=== PATIENT | female | born 1960 | race American Indian/Alaskan Native ===

== ENCOUNTER 2016-08-19 13:32 | Emergency (ER) | payer MEDICARE, OTHER ==
[2016-08-19 13:49] VITALS: TEMP 98.7; O2SAT 100
[2016-08-19 13:50] VITALS: BMI 22.1
--- NOTE | 2016-08-19 13:55 | ED PDOC ---
Arrival/HPI - General Time Seen by Provider: 08/19/16 13:33 Historian: Patient - History of Present Illness Narrative History of Present Illness (Text): 08/19/16 13:46 A 56 year old female, whose past medical history includes diabetes on hemodialysis and VT, presents to the emergency department complaining of chest pain. Patient reports while receiving dialysis today she developed midsternal chest pressure. Patient reports she was placed on oxygen, with mild relief. She states her current pain does not feel like her previous VT symptoms. Patient was given nitroglycerin on route to emergency room and now complains of a headache. Gradual onset, not the worst AQUINO of her life. Patient denies any fever nausea, vomiting, diarrhea, abdominal pain, shortness of breath or any other complaints. Patient did not receive full dialysis treatment today. PMD: Dr. Rubalcava Rack Puller: Dr. Crump Time/Duration: Other (Today) Symptom Course: Unchanged Quality: Other Context: Other Past Medical History - Provider Review Nursing Documentation Reviewed: Yes - Infectious Disease Hx of Infectious Diseases: None - Tetanus Immunization Tetanus Immunization: Unknown - Cardiac Hx Cardiac Disorders: Yes (CAD, Mx stents) Hx Hypertension: Yes - Pulmonary Hx Respiratory Disorders: No Hx Pneumonia: (pt denies) - Neurological Hx Neurological Disorder: Yes Hx Migraine: Yes - HEENT Hx HEENT Disorder: No - Renal Hx Renal Failure: Yes (ESRD) - Endocrine/Metabolic Hx Hypothyroidism: Yes - Hematological/Oncological Hx Blood Disorders: Yes (blood transfusion) Hx Anemia: Yes - Integumentary Hx Dermatological Disorder: Yes (generalized body itch) - Musculoskeletal/Rheumatological Hx Falls: No - Gastrointestinal Hx Gastrointestinal Disorders: Yes (peptic ulcer) Hx Gall Bladder Disease: Yes Other/Comment: esophageal ulcer - Genitourinary/Gynecological Hx Genitourinary Disorders: (esrd, hd renal ventures m w f) Hx Hematuria: Yes Hx Reproductive Disorders: No Hx Urinary Tract Infection: Yes - Psychiatric Hx Anxiety: Yes Hx Depression: Yes Hx Emotional Abuse: No Hx Physical Abuse: No 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) - Surgical History Hx Appendectomy: Yes Hx Cholecystectomy: Yes Other/Comment: x4, excision bartholin cyst, right chest udall in and out, d&c, insertion and removal of peritoneal dialysis cyst, renal bx, left av shunt, mrcp - Anesthesia Hx Anesthesia: Yes Hx Anesthesia Reactions: No Hx Malignant Hyperthermia: No - Suicidal Assessment Feels Threatened In Home Enviroment: No Family/Social History - Physician Review Nursing Documentation Reviewed: Yes Family/Social History: No Known Family HX Smoking Status: Former Smoker Hx Alcohol Use: Yes (quit 20 yrs ago) 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) Hx Substance Use Treatment: No Allergies/Home Meds Allergies/Adverse Reactions: Allergies MAVIS Inhibitors Allergy (Verified 08/19/16 13:48) SWELLING Home Medications: Home Meds Medication Instructions Recorded Confirmed Cyanocobalamin (Vitamin B-12) 1,000 mcg IM .BIMONTHLY 08/19/16 08/19/16 [Liquid B12] Meclizine [Meclizine*] 25 mg PO HS 08/19/16 08/19/16 Metoprolol Tartrate [Lopressor] 25 mg PO BID 08/19/16 08/19/16 Midodrine [Proamatine] 5 mg PO DAILY 08/19/16 08/19/16 Pantoprazole [Protonix EC Tab] 40 mg PO DAILY 08/19/16 08/19/16 Rosuvastatin Calcium [Crestor] 20 mg PO HS 08/19/16 08/19/16 Sevelamer Carbonate [Renvela] 800 mg PO TID 08/19/16 08/19/16 oxyCODONE/Acetaminophen [Percocet 1 tab PO Q6 PRN 08/19/16 08/19/16 5/325 mg Tab] Physical Exam - Physical Exam Narrative Physical Exam (Text): - Review of Systems Constitutional: Normal. absent: Fatigue, Weight Change, Fevers Eyes: Normal ENT: Normal Respiratory: Normal absent: SOB, Cough, Sputum Cardiovascular: (+) Chest pressure absent: Palpitations, Syncope Gastrointestinal: Normal absent: Abdominal pain, Diarrhea, Nausea, Vomiting Genitourinary: Normal. absent: Dysuria, Frequency, Hematuria Musculoskeletal: Normal. absent: Arthralgias, Back Pain, Neck Pain Skin: Normal Neurological: (+) Headache absent: Focal Weakness Endocrine: Normal Hemo/Lymphatic: Normal Psychiatric: Normal - Physical exam Patient appears age appropriate, speaking full sentences without difficulty - Systems Exam Head: Present: Atraumatic, Normocephalic Pupils: Present: PERRL Extraocular Muscles: Present: EOMI Conjunctiva: Present: Normal Mouth: Present: Moist Mucous Membranes Neck: Present: Normal Range of Motion. No: MIDLINE TENDERNESS, Paraspinal Tenderness Respiratory/Chest: Present: Clear to Auscultation, Good Air Exchange. No: Respiratory Distress, Accessory Muscle Use, Tachypneic Cardiovascular: Present: Regular Rate and Rhythm, Normal S1, S2, Peripheral Pulses Present. No: Murmurs Abdomen: Present: Normal Bowel Sounds, No: Tenderness, Peritoneal Signs, Rebound, Guarding, Distention Back: Present: Normal Inspection. No: Midline Tenderness, Paraspinal Tenderness Upper Extremity: Present: Left dialysis access with positive bruit, thrill and pulse No: Cyanosis, Edema Lower Extremity: Present: Normal Inspection. No: Edema Neurological: Present: GCS=15, Speech Normal, cranial nerves II through XII fully intact with no cerebellar abnormality, neuro-sensory fully intact. No focal neurological deficits. Skin: Present: Warm, Dry, Normal Color. No: Rashes Lymphatic: Present: OX3, NI, NC Psychiatric: Present: Alert, Oriented x 3, Normal Insight, Normal Concentration Vital Signs Reviewed: Yes Vital Signs Temp Pulse Resp BP Pulse Ox 08/19/16 13:45 98.7 F 77 18 140/73 100 Temperature: Afebrile Blood Pressure: Normal Pulse: Regular Respiratory Rate: Normal Appearance: Positive for: Well-Appearing, Non-Toxic, Comfortable Pain Distress: None Mental Status: Positive for: Alert and Oriented X 3 Medical Decision Making ED Course and Treatment: 08/19/16 13:46 Impression: A 56 year old female with chest pressure. Physical exam unremarkable. Plan: -- Chest xray -- Labs -- Tylenol -- Reassess and disposition Progress Notes: EKG shows NSR at [address]-segment elevations, normal intervals. Interpreted by me. Report Date : 08/19/2016 14:16:12 Procedure: Chest xray Dictator : Kimo Trujillo MD IMPRESSION: No active disease. 08/19/16 15:[address] Rubalcava in detail, states he know pt well and she has chronic chest pain states to dc pt home with outpatient f/u tomorrow pt in no distress at this time, aware of and agrees with plan pt denies chest pain, sob or vanessa. Pt states she understands to return to the ER right away for new or worsening symptoms or for inability to f/u with PMD or specialist as instructed. Patient states that she fully agrees with and understands discharge instructions. States that she agrees with the plan and disposition. Verbalized and repeated discharge instructions and plan. I have given the patient opportunity to ask any additional questions. - Lab Interpretations Lab Results: 08/19/16 15:00 08/19/16 15:00 Lab Results 08/19/16 15:00: WBC 4.8 D, RBC 3.11 L, Hgb 10.9 L, Hct 33.4 L, MCV 107.4 H, MCH 35.0, MCHC 32.6, RDW 15.7 H, Plt Count 141, MPV 10.3, Gran % 53.9, Lymph % ( Auto) 31.2, [place] % (Auto) 13.0 H, Eos % (Auto) 1.7, Baso % (Auto) 0.2, Gran # 2.58, Lymph # 1.5, [place] # 0.6, Eos # 0.1, Baso # 0.01, PT 11.1, INR 1.03, APTT 31.0 H, Sodium 140, Potassium 4.5, Chloride 96, Carbon Dioxide 31, Anion Gap 18 , BUN 36 H, Creatinine 8.9 H*, Est GFR ( Amer) 6, Est GFR (Non-Af Amer) 5 , Random Glucose 95, Calcium 8.6, Total Bilirubin 0.7, AST 26, ALT 24, Alkaline Phosphatase 87, Lactate Dehydrogenase 390, Total Creatine Kinase 38, Troponin I 0.01 D, Total Protein 8.7 H, Albumin 4.1, Globulin 4.7, Albumin/Globulin Ratio 0.9 L - RAD Interpretation Radiology Orders: 08/19/16 13:57 CHEST PORTABLE [RAD] Stat - Medication Orders Current Medication Orders: Discontinued Medications Acetaminophen (Tylenol 325mg Tab) 975 mg PO STAT STA Stop: 08/19/16 13:51 Last Admin: 08/19/16 15:01 Dose: Not Given Non-Admin Reason: Patient Refused Diphenhydramine HCl (Benadryl) 50 mg IVP STAT STA Stop: 08/19/16 15:37 Morphine Sulfate (Morphine) 4 mg IVP STAT STA Stop: 08/19/16 15:24 Last Admin: 08/19/16 15:29 Dose: 4 MG MAR Pain Assessment Document 08/19/16 15:29 HI (Rec: 08/19/16 15:29 HI [id number]) Pain Reassessment Is this a pain reassessment? No Sleep Is patient sleeping during reassessment? No Presence of Pain Presence of Pain Yes Pain Scale Used Pain Scale Used Numeric Location Pain Location Body Site Chest IVP Administration Document 08/19/16 15:29 HI (Rec: 08/19/16 15:29 HI [id number]) Charges for Administration # of IVP Administrations 1 - Scribe Statement The provider has reviewed the documentation as recorded by the Scribe Geni Avalos Provider Scribe Attestation: All medical record entries made by the Scribe were at my direction and personally dictated by me. I have reviewed the chart and agree that the record accurately reflects my personal performance of the history, physical exam, medical decision making, and the department course for this patient. I have also personally directed, reviewed, and agree with the discharge instructions and disposition. Disposition/Present on Arrival - Present on Arrival Any Indicators Present on Arrival: No History of DVT/PE: No History of Uncontrolled Diabetes: No Urinary Catheter: No History Surgical Site Infection Following: None - Disposition Have Diagnosis and Disposition been Completed?: Yes Diagnosis: Chest pain Disposition: HOME/ ROUTINE Disposition Time: 15:54 Patient Plan: Discharge Patient Problems: Current Active Problems Problem Status Diagnosed Acute hyperkalemia Acute Pneumonia Acute Renal failure Acute Condition: GOOD Discharge Instructions (ExitCare): Chest Pain (ED) Additional Instructions: PLEASE RETURN TO THE EMERGENCY DEPARTMENT FOR NEW OR WORSENING SYMPTOMS. RETURN RIGHT AWAY IF YOU CANNOT FOLLOW UP WITH YOUR PRIMARY CARE DOCTOR TOMORROW. PLEASE FOLLOW UP WITH DR. RUBALCAVA IN THE OFFICE TOMORROW. Referrals: Ranjith Rubalcava MD [Primary Care Provider] - Follow up with primary Derrick Tran MD [Staff Provider] - Follow up with primary
--- NOTE | 2016-08-19 14:17 | RAD ---
HISTORY: cp COMPARISON: 07/14/2016 FINDINGS: LUNGS: No active pulmonary disease. PLEURA: No significant pleural effusion identified, no pneumothorax apparent. CARDIOVASCULAR: Normal. OSSEOUS STRUCTURES: No significant abnormalities. VISUALIZED UPPER ABDOMEN: Normal. OTHER FINDINGS: None. IMPRESSION: No active disease.
[2016-08-19 15:05] LABS: ADD MANUAL DIFF? NO
[2016-08-19 15:10] LABS: BASO # 0.01 K/mm3 (0.0-2.0); BASO % 0.2 % (0.0-3.0); EOS # 0.1 (0.0-0.7); EOS % 1.7 % (1.5-5.0); GRAN # 2.58 (1.4-6.5); GRAN % 53.9 % (50.0-68.0); HEMATOCRIT 33.4 % (36.0-48.0); LYMPH # 1.5 (1.2-3.4); LYMPH % 31.2 % (22.0-35.0); MEAN CELL VOLUME 107.4 fL (80.0-105.0); MEAN CORPUSCULAR HGB CONC 32.6 g/dl (31.0-37.0); MEAN PLATELET VOLUME 10.3 fl (7.0-11.0); MONO # 0.6 (0.1-0.6); PLATELET COUNT 141 10^3/uL (120.0-450.0); RED CELL DISTRIBUTION WIDTH 15.7 % (11.5-14.5); WHITE BLOOD COUNT 4.8 10^3/ul (4.5-11.0)
[2016-08-19 15:20] LABS: INR 1.03 (0.93-1.08)
[2016-08-19] MEDS ORDERED: Morphine 4 mg/ml ISec IVP STA (15:23)
[2016-08-19 15:27] LABS: ALB/GLOB RATIO 0.9 (1.1-1.8); BILIRUBIN,TOTAL 0.7 mg/dL (0.2-1.3); CALCIUM 8.6 mg/dL (8.4-10.5); POTASSIUM 4.5 mmol/L (3.6-5.0); TOTAL PROTEIN 8.7 g/dL (5.8-8.3)
[2016-08-19] MEDS ORDERED: DiphenhydrAMINE 50 mg/ml Inj IVP STA (15:36)
[2016-08-19 15:38] LABS: TROPONIN I 0.01 ng/mL
[2016-08-19 16:04] VITALS: BP 141/94; PULSE 82; RESP 16
--- NOTE | 2016-08-19 21:46 | CARD ---
APPROVED REPORT EKG Measurement Heart [id number] <Conclusion> Normal sinus rhythm Minimal voltage criteria for LVH, may be normal variant Prolonged QT Abnormal ECG
== END 2016-08-19 16:01 | disposition home or self-care (01) ==
LOC: ED 13:32
DX: R07.9 Chest pain, unspecified (principal); I12.0 Hypertensive chronic kidney disease with stage 5 chronic kidney disease or end stage renal disease; N18.6 End stage renal disease; Z99.2 Dependence on renal dialysis
CPT/HCPCS: 71010; 80053; 82550; 83615; 84484; 85025; 85610; 85730; 93005; 96374; 96375; 99285; J1200; J2270

== ENCOUNTER 2016-08-28 05:57 | Observation (INO) | payer MEDICARE, OTHER ==
[2016-08-28 07:08] VITALS: BMI 22.3
--- NOTE | 2016-08-28 07:18 | ED PDOC ---
Arrival/HPI - General Chief Complaint: Abdominal Pain Time Seen by Provider: 08/28/16 07:02 Historian: Patient - History of Present Illness Narrative History of Present Illness (Text): 08/28/16 07:13 A 56 year old female, whose past medical history includes hypertension, hyperlipidemia, HIV with aids, [place], CAD with stents, ESRD with hemodialysis on / /, hypothyroidism on Synthroid and cholecystectomy, presents to the emergency department complaining of abdominal pain for the past 4 days. Patient notes nausea, non-bilious non-bloody vomiting and diarrhea. Patient states she took Tylenol, with no relief. Patient notes a tingling sensation in hands and feet but denies any fever, chills, urinary symptoms, hematuria, hematochezia, chest pain, shortness of breath or any other complaints. Patient reports her last cd4 count was 18. PMD: Dr. Rubalcava Time/Duration: Other (4 days) Symptom Course: Unchanged Quality: Other Context: Other Past Medical History - Provider Review Nursing Documentation Reviewed: Yes - Infectious Disease Hx of Infectious Diseases: None - Tetanus Immunization Tetanus Immunization: Unknown - Cardiac Hx Cardiac Disorders: Yes (CAD, Mx stents) Hx Hypertension: Yes - Pulmonary Hx Respiratory Disorders: No Hx Pneumonia: (pt denies) - Neurological Hx Neurological Disorder: Yes Hx Migraine: Yes - HEENT Hx HEENT Disorder: No - Renal Hx Renal Failure: Yes (ESRD) - Endocrine/Metabolic Hx Hypothyroidism: Yes - Hematological/Oncological Hx Blood Disorders: Yes (blood transfusion) Hx Anemia: Yes - Integumentary Hx Dermatological Disorder: Yes (generalized body itch) - Musculoskeletal/Rheumatological Hx Falls: No - Gastrointestinal Hx Gastrointestinal Disorders: Yes (peptic ulcer) Hx Gall Bladder Disease: Yes Other/Comment: esophageal ulcer - Genitourinary/Gynecological Hx Genitourinary Disorders: (esrd, hd renal ventures w ) Hx Hematuria: Yes Hx Reproductive Disorders: No Hx Urinary Tract Infection: Yes - Psychiatric Hx Anxiety: Yes Hx Depression: Yes Hx Emotional Abuse: No Hx Physical Abuse: No 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) - Surgical History Hx Appendectomy: Yes Hx Cholecystectomy: Yes Other/Comment: x4, excision bartholin cyst, right chest udall in and out, d&c, insertion and removal of peritoneal dialysis cyst, renal bx, left av shunt, mrcp - Anesthesia Hx Anesthesia: Yes Hx Anesthesia Reactions: No Hx Malignant Hyperthermia: No - Suicidal Assessment Feels Threatened In Home Enviroment: No Family/Social History - Physician Review Nursing Documentation Reviewed: Yes Family/Social History: No Known Family HX Smoking Status: Former Smoker Hx Alcohol Use: Yes (quit 20 yrs ago) 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) Hx Substance Use Treatment: No Allergies/Home Meds Allergies/Adverse Reactions: Allergies MAVIS Inhibitors Allergy (Verified 08/19/16 13:48) SWELLING Home Medications: Home Meds Medication Instructions Recorded Confirmed Cyanocobalamin (Vitamin B-12) 1,000 mcg IM .BIMONTHLY 08/19/16 08/19/16 [Liquid B12] Meclizine [Meclizine*] 25 mg PO HS 08/19/16 08/19/16 Metoprolol Tartrate [Lopressor] 25 mg PO BID 08/19/16 08/19/16 Midodrine [Proamatine] 5 mg PO DAILY 08/19/16 08/19/16 Pantoprazole [Protonix EC Tab] 40 mg PO DAILY 08/19/16 08/19/16 Rosuvastatin Calcium [Crestor] 20 mg PO HS 08/19/16 08/19/16 Sevelamer Carbonate [Renvela] 800 mg PO TID 08/19/16 08/19/16 oxyCODONE/Acetaminophen [Percocet 1 tab PO Q6 PRN 08/19/16 08/19/16 5/325 mg Tab] Review of Systems - Physician Review All systems were reviewed & negative as marked: Yes - Review of Systems Constitutional: absent: Fevers, Night Sweats Respiratory: absent: SOB Cardiovascular: absent: Chest Pain Gastrointestinal: Abdominal Pain, Diarrhea, Nausea, Vomiting. absent: Hematochezia Genitourinary Female: absent: Dysuria, Frequency, Hematuria, Urine Output Changes Neurological: Other (Tingling sensation in hands and feet) Physical Exam Vital Signs Reviewed: Yes Vital Signs Temp Pulse Resp BP Pulse Ox 08/28/16 10:52 73 18 122/70 100 08/28/16 09:00 77 20 122/75 97 08/28/16 07:08 99.0 F 83 18 128/78 97 Temperature: Afebrile Blood Pressure: Normal Pulse: Regular Respiratory Rate: Normal Appearance: Positive for: Well-Appearing, Non-Toxic, Comfortable Pain Distress: None Mental Status: Positive for: Alert and Oriented X 3 - Systems Exam Head: Present: Atraumatic, Normocephalic Pupils: Present: PERRL Extroacular Muscles: Present: EOMI Conjunctiva: Present: Normal Mouth: Present: Moist Mucous Membranes Neck: Present: Normal Range of Motion Respiratory/Chest: Present: Clear to Auscultation, Good Air Exchange. No: Respiratory Distress, Accessory Muscle Use Cardiovascular: Present: Regular Rate and Rhythm, Normal S1, S2. No: Murmurs Abdomen: Present: Tenderness (Epigastric and LUQ tenderness to palpation), Normal Bowel Sounds, Guarding (Mild guarding). No: Distention, Peritoneal Signs , Rebound Back: Present: Normal Inspection Upper Extremity: Present: Normal Inspection. No: Cyanosis, Edema Lower Extremity: Present: Normal Inspection. No: Edema Neurological: Present: GCS=15, CN II-XII Intact, Speech Normal Skin: Present: Warm, Dry, Normal Color. No: Rashes Psychiatric: Present: Alert, Oriented x 3, Normal Insight, Normal Concentration Medical Decision Making ED Course and Treatment: 08/28/16 07:20 Impression: A 56 year old female with abdominal pain. Patient notes nausea, non-bilious non- bloody vomiting and diarrhea. Mild epigastric and LUQ tenderness on exam. Patient notes a tingling sensation in hands and feet. Differential Diagnosis included but are not limited to: Pancreatitis vs. Gastritis Plan: -- Abdomen and pelvis CT -- Labs -- Pepcid, Toradol and Zofran -- Reassess and disposition Prior Visits: Notes and results from previous visits were reviewed. Patient last seen in ED on 08/19/16 for chest pain. - Critical Care Critical Care Minutes: 30 minutes - Lab Interpretations Lab Results: 08/28/16 07:25 08/28/16 08:30 Lab Results 08/28/16 08:30: Sodium 141, Potassium 7.1 H* D, Chloride 96, Carbon Dioxide 28, Anion Gap 24 H, BUN 56 H, Creatinine 11.5 H*, Est GFR ( Amer) 4, Est GFR (Non-Af Amer) 3, Random Glucose 86, Calcium 8.0 L, Total Bilirubin 0.7, AST 35, ALT 18, Alkaline Phosphatase 83, Total Protein 9.1 H, Albumin 4.1, Globulin 4.9 , Albumin/Globulin Ratio 0.8 L, Lipase 367 H 08/28/16 07:25: WBC 6.5 D, RBC 3.46 L, Hgb 12.0, Hct 37.0, MCV 106.9 H, MCH 34.7, MCHC 32.4, RDW 15.1 H, Plt Count 188, MPV 12.1 H, Gran % 72.6 H, Lymph % ( Auto) 13.9 L, [place] % (Auto) 12.2 H, Eos % (Auto) 1.1 L, Baso % (Auto) 0.2, Gran # 4.71, Lymph # 0.9 L, [place] # 0.8 H, Eos # 0.1, Baso # 0.01 I have reviewed the lab results: Yes - RAD Interpretation Radiology Orders: 08/28/16 07:12 ABD & PELVIS W/O PO OR IV CONT [CT] Stat - Medication Orders Current Medication Orders: Levothyroxine Sodium (Synthroid) 25 mcg PO DAILY DOUGLAS Metoclopramide HCl (Reglan) 10 mg IVP Q6H DOUGLAS Metoprolol Tartrate (Lopressor) 25 mg PO BID DOUGLAS Midodrine (Proamatine) 5 mg PO DAILY DOUGLAS Ondansetron HCl (Zofran Inj) 4 mg IVP Q4H PRN PRN Reason: Nausea/Vomiting Pantoprazole Sodium (Protonix Inj) 40 mg IVP Q12H [facility] Last Admin: 08/28/16 10:54 Dose: Discontinued Medications Dextrose (Dextrose 50% Inj) 50 ml IVP STAT STA Stop: 08/28/16 09:19 Last Admin: 08/28/16 09:55 Dose: 50 ml Famotidine (Pepcid) 20 mg IVP STAT STA Stop: 08/28/16 07:13 Last Admin: 08/28/16 07:46 Dose: 20 mg Insulin Human Regular (Humulin R) 10 units IVP STAT STA Stop: 08/28/16 09:19 Last Admin: 08/28/16 09:55 Dose: 10 units Ketorolac Tromethamine (Toradol) 30 mg IVP STAT STA Stop: 08/28/16 07:13 Last Admin: 08/28/16 07:46 Dose: 30 mg Re-Assess: KARL Pain Assessment Document 08/28/16 08:46 [facility] (Rec: 08/28/16 09:01 [facility] [place] [id number]) Pain Reassessment Is this a pain reassessment? Yes Sleep Is patient sleeping during reassessment? Yes Pain Scale Used Pain Scale Used Numeric Description Intensity of Pain at present 8 Morphine Sulfate (Morphine) 4 mg IVP STAT STA Stop: 08/28/16 08:57 Last Admin: 08/28/16 09:01 Dose: 4 mg Re-Assess: [facility] Pain Assessment Document 08/28/16 10:01 SS (Rec: 08/28/16 10:56 [id number]) Pain Reassessment Is this a pain reassessment? Yes Pain Scale Used Pain Scale Used Numeric Location Upper or Lower Upper Pain Location Body Site Abdomen Description Intensity of Pain at present 4 Ondansetron HCl (Zofran Inj) 4 mg IVP STAT STA Stop: 08/28/16 07:13 Last Admin: 08/28/16 07:46 Dose: 4 mg Ondansetron HCl (Zofran Inj) 4 mg IVP STAT STA Stop: 08/28/16 09:36 Last Admin: 08/28/16 09:47 Dose: 4 mg Pantoprazole Sodium (Protonix Inj) 40 mg IVP STAT STA Stop: 08/28/16 10:17 Last Admin: 08/28/16 10:25 Dose: 40 mg Sodium Bicarbonate (Sodium Bicarbonate (8.4%) 50 Meq Syringe) 50 meq IVP ONCE ONE Stop: 08/28/16 10:16 Last Admin: 08/28/16 10:26 Dose: 50 meq Sodium Polystyrene Sulfonate (Kayexalate Oral Susp) 30 gm PO STAT STA Stop: 08/28/16 10:14 Last Admin: 08/28/16 10:25 Dose: 30 gm ED OBSERVATION Date of observation admission: 08/28/16 Time of observation admission: 07:12 - Observation admission statement Patient is being placed in observation because:: Abdominal pain - Goals of Observation Goals of observation are:: Monitor and treat patients symptoms - Progress Note Progress Note: 08/28/16 07:12 A 56 year old female with abdominal pain. Will re-evaluate after medication is administered. Report Date : 08/28/2016 08:44:52 PROCEDURE: CT Abdomen and Pelvis without intravenous contrast Dictator : Maria Eugenia Fierro V. IMPRESSION: No CT findings appreciated of patient's abdominal pain 08/28/16 09:12 Patient resting comfortably, no new complaints. 08/28/16 09:18 Patients labs reviewed, elevated potassium. Will treat with Dextrose and insulin , Kayexalate, and sodium bicarb. Lipase elevated consistent with pancreatitis. 08/28/16 10:31 EKG shows NSR at 75 BPM with prolonged QT, with no changes from prior 08/19/16. Interpreted by me. CT negative. Case was discussed with Dr. Rubalcava who agreed to admission under his service. He requested Dr. Crump for Renal. I discussed the case with Dr. Crump who will arrange for Urgent Dialysis. I explained the prolonged QT but there's no change from previous EKG. RN Chika is aware that patient is ready for dialysis and she will make sure that once dialysis is ready for patient that they will take her up. - Scribe Statement The provider has reviewed the documentation as recorded by the Scribe Geni Avalos Provider Scribe Attestation: All medical record entries made by the Scribe were at my direction and personally dictated by me. I have reviewed the chart and agree that the record accurately reflects my personal performance of the history, physical exam, medical decision making, and the department course for this patient. I have also personally directed, reviewed, and agree with the discharge instructions and disposition. Disposition/Present on Arrival - Present on Arrival Any Indicators Present on Arrival: No History of DVT/PE: No History of Uncontrolled Diabetes: No Urinary Catheter: No History of Decub. Ulcer: No History Surgical Site Infection Following: None - Disposition Have Diagnosis and Disposition been Completed?: Yes Diagnosis: Pancreatitis, Vomiting, Hyperkalemia Disposition: HOSPITALIZED Disposition Time: 07:12 Patient Plan: Admission Condition: FAIR Referrals: Ranjith Rubalcava MD [Primary Care Provider] - Follow up with primary
[2016-08-28 07:58] LABS: ADD MANUAL DIFF? NO
[2016-08-28 08:02] LABS: BASO # 0.01 K/mm3 (0.0-2.0); BASO % 0.2 % (0.0-3.0); EOS # 0.1 (0.0-0.7); EOS % 1.1 % (1.5-5.0); GRAN # 4.71 (1.4-6.5); GRAN % 72.6 % (50.0-68.0); LYMPH # 0.9 (1.2-3.4); LYMPH % 13.9 % (22.0-35.0); MEAN CELL VOLUME 106.9 fL (80.0-105.0); MEAN CORPUSCULAR HEMOGLOBIN 34.7 pg (25.0-35.0); MEAN CORPUSCULAR HGB CONC 32.4 g/dl (31.0-37.0); MEAN PLATELET VOLUME 12.1 fl (7.0-11.0); MONO # 0.8 (0.1-0.6); MONO % 12.2 % (1.0-6.0); PLATELET COUNT 188 10^3/uL (120.0-450.0); RED CELL DISTRIBUTION WIDTH 15.1 % (11.5-14.5); WHITE BLOOD COUNT 6.5 10^3/ul (4.5-11.0)
--- NOTE | 2016-08-28 08:46 | CT ---
PROCEDURE: CT Abdomen and Pelvis without intravenous contrast HISTORY: abd pain COMPARISON: 06/10/2016 TECHNIQUE: Technique. Contrast Dose: None Radiation dose: Total exam DLP = 198 mGy-cm. This CT exam was performed using one or more of the following dose reduction techniques: Automated exposure control, adjustment of the mA and/or kV according to patient size, and/or use of iterative reconstruction technique. FINDINGS: LOWER THORAX: Large heart. 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 Extensive surgical changes in the gallbladder fossa consistent with a cholecystectomy are present these surgical clips also extend along the right colon loops. This appearance is unchanged. No interval liver masses or dilated duct are appreciated on this non contrast enhanced study GALLBLADDER AND BILE DUCTS: Post cholecystectomy PANCREAS: Unremarkable. No gross lesion or ductal dilatation. SPLEEN: Unremarkable. ADRENALS: Minimal adrenal nodular limb [id number] KIDNEYS AND URETERS: Marked renal atrophy with dystrophic like calcifications. An underlying nephrosclerosis is inferred. No change in appearance noted VASCULATURE: Scattered atherosclerotic vascular calcifications No aortic aneurysm. BOWEL: Rectosigmoid mild redundancy. Stool retention. No obstruction. No gross mural thickening. No gross diverticulitis APPENDIX: Unremarkable. Normal appendix. PERITONEUM: Unremarkable. No free fluid. No free air. LYMPH NODES: Unremarkable. No enlarged lymph nodes. BLADDER: Unremarkable. REPRODUCTIVE: Atrophic postmenopausal appearing uterus BONES: No acute fracture. OTHER FINDINGS: None. IMPRESSION: No CT findings appreciated of patient's abdominal pain .
[2016-08-28] MEDS ORDERED: Morphine 4 mg/ml ISec IVP STA (08:56)
[2016-08-28 08:58] LABS: ALB/GLOB RATIO 0.8 (1.1-1.8); BILIRUBIN,TOTAL 0.7 mg/dL (0.2-1.3); TOTAL PROTEIN 9.1 g/dL (5.8-8.3)
[2016-08-28 09:12] LABS: POTASSIUM 7.1 mmol/L (3.6-5.0)
[2016-08-28] MEDS ORDERED: Dextrose 50% SYRINGE Inj (50 ml) IVP STA (09:18)
[2016-08-28] MEDS ORDERED: Insulin Regular 1 UNITS/0.01 ML ML IVP STA (09:18)
[2016-08-28] MEDS ORDERED: Sod Polystyrene Sulf 15 gm/60 ml Oral Susp PO STA (10:13)
[2016-08-28] MEDS ORDERED: Sodium Bicarbonate (8.4%) 50 Meq Syringe IVP ONE (10:15)
[2016-08-28] MEDS: Levothyroxine 25 MCG TAB PO SCH (11:01)
--- NOTE | 2016-08-28 12:44 | CARD ---
APPROVED REPORT EKG Measurement Heart [id number] RI [id number] [id number] <Conclusion> Normal sinus rhythm Nonspecific ST abnormality Prolonged QT
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
--- NOTE | 2016-08-28 14:10 | CON ---
DATE: 08/28/2016 HISTORY OF PRESENT ILLNESS: The patient is a 56-year-old woman who presents with epigastric abdomina l pain. No chest pain noted. PAST MEDICAL HISTORY: Includes a history of coronary artery disease and which she has had no angina. The patient also suffers from end-stage renal disease as well as has a history of HIV positivity. She has had recurrent pancreatitis in the past. SOCIAL HISTORY: She denies smoking. REVIEW OF SYSTEMS: A 14-point review of systems was reviewed in detail. No cardiac symptomatology i s noted. PHYSICAL EXAMINATION: VITAL SIGNS: Blood pressure is 113/74, the heart rate is in the 80s. NECK: Negative JVD. LUNGS: Without rales. HEART: Reveals S1, S2. EXTREMITIES: Without edema. LABORATORIES: Reveal the troponins are negative x 1. BUN and creatinine are 56/11.1 with a potassium of 7.1. Hemoglobin is 12.0. IMPRESSION: 1. Abdominal pain, need to rule out pancreatitis. 2. Renal insufficiency. 3. Coronary artery disease. 4. Stable angina. 5. History of human immunodeficiency virus. 6. Renal insufficiency. 7. Hyperkalemia. Given these findings, her symptoms do not seem to be related to her coronary disease. Will need to repeat the potassium. The patient may need dialysis for her hyperkalemia. Derrick Tran MD cc: [id number] TT: 08/28/2016 14:09:32 Confirmation # [id number] Dictation # [id number] mn
--- NOTE | 2016-08-28 15:00 | CON ---
DATE: 08/28/2016 REASON FOR CONSULTATION: Severe hyperkalemia, abdominal pain, nausea, vomiting. HISTORY OF PRESENTING ILLNESS: A 56-year-old young woman with history of hypertension, HIV, CAD, PTC A and stent x 3, recurrent episodes of chest pain, ESRD, presenting to the Emergency Room with compla ints of upper abdominal pain, nausea, vomiting, diarrhea. She reports dietary indiscretion. She rep orts she had an ice cream on Friday afternoon. She also is complaining of headache that start ed prior to this episode. She is presenting with upper abdominal pain, nausea and vomiting. In the Emergency Room, she was found to have a potassium of 7.1. PAST MEDICAL AND SURGICAL HISTORY: Hypertension, CAD, percutaneous transluminal coronary angioplasty and stents, HIV, ESRD, anemia of chronic kidney disease, secondary hypoparathyroidism, dietary indis cretion. FAMILY HISTORY: Unchanged. SOCIAL HISTORY: No smoking, no alcohol use, no IV drug abuse. ALLERGIES: MAVIS INHIBITORS. CURRENT MEDICATIONS: Lopressor 50 b.i.d., Protonix, Reglan, Synthroid, Zofran, Norvir, Prezista, ___ _, ____, Plavix, folic acid. REVIEW OF SYSTEMS: All systems are reviewed. Pertinent positives as mentioned in the history of pre senting illness, rest unremarkable. PHYSICAL EXAMINATION: GENERAL: ____ middle aged lady sitting in chair in the ER, in no acute distress at this time. VITAL SIGNS: Blood pressure 113/74, heart rate 80, respiratory rate 16-18, temperature 99. HEENT: Normocephalic, atraumatic, positive pallor. NECK: Supple, no JVD. LUNGS: Bilateral equal air entry. No rales. Bilateral rhonchi. CARDIAC: S1, S2, regular rate and rhythm, no murmur, no rub. ABDOMEN: Obese, distended, soft. ____tenderness in the epigastrium. Bowel sounds present. EXTREMITIES: No lower extremity edema. LABORATORY DATA: WBC 6.5, hemoglobin 12, hematocrit 37, platelets 188. Sodium 141, potassium 7.1, c hloride 96, CO2 of 28, BUN 56, creatinine 11.5, glucose 86, calcium 8.0. AST ____, ALT 18. Amylase 254, lipase ____. Noncontrast CT of the abdomen was unremarkable. ASSESSMENT: 1. Severe ____. 2. Abdominal pain, pancreatitis. 3. Nausea, vomiting, diarrhea. 4. Hypertension. 5. End-stage renal disease. 6. Coronary artery disease, history of percutaneous transluminal coronary angioplasty and stent. PLAN: 1. ____ dialysis, dialyze with a potassium 1 bath. 2. The patient is counseled regarding importance of dietary restrictions. 3. Continue outpatient medications. 4. ____ ? Meryl Shukla MD cc: [id number] TT: 08/28/2016 14:49:14 Confirmation # [id number] Dictation # [id number] al 08/28/2016 13:59:10
[2016-08-28 16:19] LABS: ALB/GLOB RATIO 0.8 (1.1-1.8); BILIRUBIN,TOTAL 0.8 mg/dL (0.2-1.3); CALCIUM 8.6 mg/dL (8.4-10.5); POTASSIUM 3.6 mmol/L (3.6-5.0); TOTAL PROTEIN 9.6 g/dL (5.8-8.3)
[2016-08-28] MEDS ORDERED: Pneumococcal 23-Valent Vaccine IM ONE (21:51)
[2016-08-29 00:33] VITALS: RESP 20
[2016-08-29 05:54] VITALS: O2SAT 99
[2016-08-29 06:57] LABS: ADD MANUAL DIFF? NO
[2016-08-29 07:07] LABS: BASO # 0.01 K/mm3 (0.0-2.0); BASO % 0.3 % (0.0-3.0); EOS # 0.1 (0.0-0.7); EOS % 1.8 % (1.5-5.0); GRAN # 2.13 (1.4-6.5); GRAN % 55.3 % (50.0-68.0); HEMATOCRIT 33.8 % (36.0-48.0); LYMPH # 1.1 (1.2-3.4); LYMPH % 27.3 % (22.0-35.0); MEAN CELL VOLUME 108.3 fL (80.0-105.0); MEAN CORPUSCULAR HEMOGLOBIN 34.6 pg (25.0-35.0); MEAN PLATELET VOLUME 10.7 fl (7.0-11.0); MONO # 0.6 (0.1-0.6); MONO % 15.3 % (1.0-6.0); PLATELET COUNT 128 10^3/uL (120.0-450.0); RED CELL DISTRIBUTION WIDTH 15.1 % (11.5-14.5); WHITE BLOOD COUNT 3.9 10^3/ul (4.5-11.0)
[2016-08-29 07:20] LABS: ALB/GLOB RATIO 0.9 (1.1-1.8); BILIRUBIN,DIRECT 0.8 mg/dL (0.0-0.4); BILIRUBIN,TOTAL 0.8 mg/dL (0.2-1.3); MAGNESIUM 1.7 mg/dL (1.7-2.2); PHOSPHOROUS 7.7 mg/dL (2.5-4.5); POTASSIUM 5.3 mmol/L (3.6-5.0); TOTAL PROTEIN 9.1 g/dL (5.8-8.3)
--- NOTE | 2016-08-29 09:11 | PN ---
DATE: 08/29/2016 CARDIOLOGY FOLLOWUP The patient is feeling much better today. No more pain. PHYSICAL EXAMINATION: VITAL SIGNS: Blood pressure 126/75. The heart rate is in the 60s, normal sinus rhythm. NECK: Negative JVD. LUNGS: Without rales. HEART: Reveals S1, S2. EXTREMITIES: Without edema. LABORATORY DATA: Potassium is 5.3. Hemoglobin is 10.8. IMPRESSION: 1. Resolution of abdominal pain. 2. End-stage renal disease. 3. Coronary artery disease. 4. Stable angina. 5. History of human immunodeficiency virus. 6. Hyperkalemia. PLAN: Given these findings, the patient's cardiac status is stable. No further cardiac workup is ne cessary. We will discontinue telemetry today. Derrick Tran MD cc: [id number] TT: 08/29/2016 09:10:26 Confirmation # [id number] Dictation # [id number] jn
[2016-08-29] MEDS: Levothyroxine 25 MCG TAB PO SCH (09:54)
--- NOTE | 2016-08-29 10:03 | CON ---
DATE: 08/29/2016 REQUESTING PHYSICIAN: Dr. Rubalcava REASON FOR CONSULTATION: I have been asked to see this 56-year-old female with history of end-stage renal disease on hemodialysis, coronary artery disease, HIV positivity, chronic abdominal pain, who c omes to the hospital with a 2-day history of mid abdominal pain associated with nausea and vomiting. She denies any fevers, chills, hematemesis, melena or rectal bleeding. Routine blood work showed joshua watson to be hyperkalemic with a potassium of 7.1. Her BUN and creatinine were 56 and 11.5. The caesar ent has been compliant with her hemodialysis treatments. The patient has had multiple [facility] admissions for chronic abdominal pain over the last 12-18 months. The patient had an endosc opy back in 06/2016, which revealed gastroparesis and duodenitis as well as a hiatal hernia. PAST MEDICAL HISTORY: As above. Again, she has a history of end-stage renal disease on hemodialysis , coronary artery disease, HIV positivity, chronic abdominal pain, gastroparesis, anemia. SOCIAL HISTORY: She denies cigarette smoking or alcohol use. FAMILY HISTORY: Noncontributory. REVIEW OF SYSTEMS: A 14-point is notable for abdominal pain, nausea and vomiting. PHYSICAL EXAMINATION: GENERAL: Well-developed female, lying in bed, in no acute distress. She is taking breakfast at this time. VITAL SIGNS: Reveal temperature of 97.7, blood pressure 126/75, heart rate 67. HEENT: Reveals sclerae to be white, conjunctivae pale. NECK: Supple. CHEST: Reveals lungs to be clear. HEART: Reveals a regular rate and rhythm. ABDOMEN: Soft, nontender. EXTREMITIES: Show no edema. LABORATORY DATA: Reveal white blood cell count 3.9, hemoglobin 10.8. Chemistries reveal potassium d own to 5.3, BUN 30, creatinine 8.1, AST 40, ALT 24. Her amylase yesterday was 254 with a lipase of [address] scan of the abdomen and pelvis was negative for any acute findings. There is no radiographic evid ence of pancreatitis. IMPRESSION: A 56-year-old female admitted to the hospital with abdominal pain, nausea, vomiting and hyperkalemia. Her abdominal pain has resolved. The patient does have a history of chronic intermitt ent abdominal pain. RECOMMENDATIONS: 1. Continue PPI. 2. The patient is stable from a GI standpoint. Paul Snider MD cc: [id number] TT: 08/29/2016 10:03:06 Confirmation # [id number] Dictation # [id number] en
[2016-08-29] MEDS ORDERED: Sod Polystyrene Sulf 15 gm/60 ml Oral Susp PO ONE (10:46)
--- NOTE | 2016-08-29 11:34 | DS ---
The patient is seen in room 265, bed 1. The patient is lying in the bed, watching TV. The patient is awake, responsive, alert. Overnight, patient complained of abdominal discomfort and headache. The patient was given Bentyl. The patient refused her medications including Lopressor and some HIV meds. The patient refused Tylenol. The patient overnight, otherwise according to the nurses' notes, slept well. The patient underwent dialysis yesterday without any complications. PHYSICAL EXAMINATION: VITAL SIGNS: T-max 98.3. Telemetry shows sinus rhythm. Blood pressure is 126/ 75, 108/63, 127/82, 113/74. Respirations 20, O2 sat 99%. Intake/output not documented correctly. HEAD: Normocephalic, atraumatic. HEENT: Shows pinkish conjunctivae, anicteric sclerae. No oropharyngeal lesion. NECK: No neck rigidity. CHEST: Kyphosis. LUNGS: Shows no rales, crackles, or wheezing. Very occasional rhonchi upper lung melchor, which clears up with deep inspiration. CARDIOVASCULAR: Shows S1, S2, regular rhythm, positive systolic murmur left sternal border, right second intercostal space. ABDOMEN: Completely soft, very mild periumbilical and epigastric tenderness. No rebound tenderness. GENITALIA: Female. RECTAL: Deferred. EXTREMITIES: Shows positive left upper extremity AV fistula, positive thrill. No costovertebral angle tenderness. Lower extremities show no pitting edema, no calf tenderness, no Homans' sign. NEUROLOGIC: The patient is alert, awake, oriented x 3. Cranial nerves II-XII intact. Gait examination could not be tested. No neuro examination deficit noted. Plantars are downward. DTRs are 2+. VASCULAR: Palpable pulses. DIAGNOSTICS: The patient's WBC 3.9, hemoglobin/hematocrit 10.8 and 33.8, MCV 108, platelets 128. The patient's yesterday's post-hemodialysis chemistry: Sodium 141, potassium 3.6, chloride 97, CO2 31, anion gap 17, BUN 23, creatinine 5.0, GFR 11, glucose 109, calcium 8.6. LFTs are normal. Repeat chemistry today: Sodium 141, potassium is 5.3, chloride 97, CO2 30, anion gap 19, BUN 30, creatinine 8.1, GFR 6, glucose 83, calcium 8.0, phosphorus 7.7. AST 40. The patient seen by cardiology, gastroenterology and nephrology. The patient is cleared for discharge. FINAL IMPRESSION, PLAN, AND DISCHARGE DIAGNOSES: 1. Severe symptomatic nonhemolyzed hyperkalemia, secondary to dietary indiscretion. 2. Elevated amylase, lipase, etiology undetermined. 3. History of hypertension with episodic hypotension. 4. Poor compliance with refusal of medications. 5. Possible narcotic-seeking behavior. 6. Leukopenia and macrocytic anemia. 7. Granulocytosis. 8. Status post non-hemolyzed hyperkalemia. 9. Increased anion gap metabolic acidosis (resolved). 10. End-stage renal disease, hemodialysis dependent via the left upper extremity arteriovenous fistula. 11. Hyperphosphatemia. 12. Mild transaminitis. 13. History of chronic intermittent abdominal pain. 14. History of human immunodeficiency virus/acquired immune deficiency syndrome with severe CD4 lymphopenia. 15. Poor dietary compliance. 16. Coronary artery disease. 17. Prolonged QT interval. 18. Cardiomegaly. 19. Hepatic lobe. 20. Cholecystectomy. 21. Minimal adrenal hyperplasia. 22. Rectosigmoid fecal retention with redundancy. 23. Postmenopausal atrophic uterus. 1. Severe symptomatic non-hemolyzed hyperkalemia. 2. Questionable pancreatitis. 3. Questionable pancreatitis with elevated amylase and lipase. 4. Macrocytosis. 5. Granulocytosis. 6. Non-hemolyzed hyperkalemia. 7. Increased anion gap metabolic acidosis. 8. End-stage renal disease, hemodialysis dependent. 9. Prolonged QT interval. 10. Cardiomegaly. 11. Hepatic Erick lobe. 12. Cholecystectomy. 13. Adrenal nodular hyperplasia. 14. Rectosigmoid fecal retention. 15. Uterine atrophy. 16. History of narcotic seeking behavior. PLAN: At this time, patient has been cleared for discharge by all subspecialties. The patient has been advised to resume all home medication as per the discharge ambulatory medications plus as per discharge medication which has been prescribed to patient during the previous visits. DISCHARGE MEDICATIONS: As per 06/2016 are as follows: The patient is on abacavir or Ziagen 300 mg twice a day, ascorbic acid 500 mg twice a day which will be discontinued, Ecotrin 81 daily, Mepron 750 mg twice a day, PhosLo 667 mg 3 times a day. The patient has stopped the Klonopin. Plavix 75 mg daily, Prezista 800 mg daily, Bentyl 10 mg q. 8 p.r.n., folic acid 1 mg daily, Epivir or lamivudine 150 mg daily, Synthroid 25 mcg daily, Linzess 145 mcg p.o. daily, Reglan 5-10 mg before meals and bedtime p.r.n., Lopressor 50 mg twice a day, Protonix 40 mg once or twice a day, Norvir or ritonavir 100 mg daily, Bactrim DS 1 tablet Friday, Friday and Friday. The patient is to resume her nebulizer treatment, either Xopenex or albuterol or DuoNeb nebulizer, Crestor 20 mg daily. The patient is also to resume medications as per ambulatory orders. The patient is on Crestor 20 mg daily, Norvir or ritonavir 100 mg daily , Protonix 40 mg once or twice a day, Lopressor 50 mg twice a day, Reglan 10 mg p.r.n. up to 4 times a day, Linzess 145 mcg daily, Synthroid 25 mcg daily, folic acid 1 mg daily. The patient is new HIV meds by Dr. Rodriguez, Tivicay 50 mg daily, Bentyl 10 mg p.r.n. 3 times a day. The patient is discharged home. The patient is advised to follow up with Dr. Rubalcava within 1 week. The patient was advised and given copy of the renal low potassium diet. The patient was advised strict dietary restrictions and control. Time spent in the entire discharge process, more than 45 minutes. Dictated and electronically signed, not read. Ranjith Rubalcava MD cc: [id number] TT: 08/29/2016 11:33:18 en MTDD
[2016-08-29 12:26] VITALS: BP 100/64; PULSE 72; TEMP 98.4
== END 2016-08-29 15:20 | disposition home or self-care (01) ==
LOC: ED 05:57 → INTOOBSV 10:17 → ERH 10:17 → 2RNO 12:31
PROVIDERS: ADMIT Internal Medicine; ATTEND Internal Medicine
DX: E87.5 Hyperkalemia (principal); B20 Human immunodeficiency virus [HIV] disease; N18.6 End stage renal disease; I12.0 Hypertensive chronic kidney disease with stage 5 chronic kidney disease or end stage renal disease; I25.118 Atherosclerotic heart disease of native coronary artery with other forms of angina pectoris; E27.8 Other specified disorders of adrenal gland; D72.810 Lymphocytopenia; D53.9 Nutritional anemia, unspecified; E87.2 Acidosis; E78.5 Hyperlipidemia, unspecified; K31.84 Gastroparesis; E03.9 Hypothyroidism, unspecified; D63.1 Anemia in chronic kidney disease; N25.81 Secondary hyperparathyroidism of renal origin; K85.90 Acute pancreatitis without necrosis or infection, unspecified; K44.9 Diaphragmatic hernia without obstruction or gangrene; K29.80 Duodenitis without bleeding; I45.81 Long QT syndrome; N85.8 Other specified noninflammatory disorders of uterus; K59.00 Constipation, unspecified; Z99.2 Dependence on renal dialysis; Z87.891 Personal history of nicotine dependence; Z91.14 Patient's other noncompliance with medication regimen; Z95.5 Presence of coronary angioplasty implant and graft; Z91.11 Patient's noncompliance with dietary regimen; I25.2 Old myocardial infarction
CPT/HCPCS: 36415; 74176; 80053; 82150; 82248; 83690; 83735; 84100; 85025; 93005; 96374; 96375; 96376; 99285; C9113; G0257; G0378; J1885; J2270; J2405; J2765

== ENCOUNTER 2016-11-18 11:06 | Emergency (ER) | payer MEDICARE, OTHER ==
[2016-11-18 11:49] VITALS: BMI 22.6
[2016-11-18 11:52] VITALS: TEMP 98.2
--- NOTE | 2016-11-18 12:45 | ED PDOC ---
Arrival/HPI - General Chief Complaint: Abdominal Pain Time Seen by Provider: 11/18/16 11:42 Historian: Patient - History of Present Illness Narrative History of Present Illness (Text): 11/18/16 12:45 A 56 year old female, whose past medical history includes hypertension and ESRD with hemodialysis (on MWF), presents to the emergency department complaining of cramping abdominal pain that developed 6 hours ago, this morning. Patient also reports nausea, vomiting and diarrhea. Reports she missed her dialysis treatment this morning. Notes she doesn't make urine. Reports she has had similar episodes multiple times previously. Denies any fever, chills or any other complaints at this time. Denies smoking and drinking. PMD: Dr. Rubalcava Time/Duration: 4-6 hours Symptom Onset: Sudden Symptom Course: Unchanged Activities at Onset: Rest Context: Home Associated Symptoms (Text): 11/18/16 14:06 Patient has chronic abdominal pain, with an exacerbation beginning this morning along with nausea vomiting and diarrhea. She missed her dialysis this morning, but has dialysis scheduled for 2:30 this afternoon. No fever or chills. No injury or trauma. She does not make urine. She does not appear to be in any distress. Past Medical History - Provider Review Nursing Documentation Reviewed: Yes - Infectious Disease Hx of Infectious Diseases: None - Tetanus Immunization Tetanus Immunization: Unknown - Reproductive Menopause: Yes - Cardiac Hx Cardiac Disorders: Yes (CAD, Mi, stents) Hx Hypertension: Yes - Pulmonary Hx Respiratory Disorders: No Hx Pneumonia: (pt denies) - Neurological Hx Neurological Disorder: Yes Hx Migraine: Yes - HEENT Hx HEENT Disorder: No - Renal Date of Last Dialysis Treatment: 08/28/16 - Endocrine/Metabolic Hx Hypothyroidism: Yes - Hematological/Oncological Hx Blood Disorders: Yes (blood transfusion) Hx Anemia: Yes - Integumentary Hx Dermatological Disorder: Yes (generalized body itch on and off) - Musculoskeletal/Rheumatological Hx Falls: No - Gastrointestinal Hx Gastrointestinal Disorders: Yes (peptic ulcer) Hx Gall Bladder Disease: Yes Other/Comment: esophageal ulcer, hx c dif 05/08/16 - Genitourinary/Gynecological Hx Genitourinary Disorders: (esrd, hd [facility] m w f) Hx Hematuria: Yes Hx Urinary Tract Infection: Yes - Psychiatric Hx Anxiety: Yes Hx Depression: Yes Hx Emotional Abuse: No Hx Physical Abuse: No Hx Substance Use: No - Surgical History Hx Appendectomy: Yes Hx Cardiac Catheterization: Yes Hx Cholecystectomy: Yes Hx Coronary Stent: Yes Other/Comment: x4, excision bartholin cyst, right chest udall in and out, d&c, insertion and removal of peritoneal dialysis cyst, renal bx, left av shunt, mrcp - Anesthesia Hx Anesthesia: Yes Hx Anesthesia Reactions: No Hx Malignant Hyperthermia: No - Suicidal Assessment Feels Threatened In Home Enviroment: No Family/Social History - Physician Review Nursing Documentation Reviewed: Yes Family/Social History: No Known Family HX Smoking Status: Never Smoked Hx Alcohol Use: No Hx Substance Use: No Hx Substance Use Treatment: No Allergies/Home Meds Allergies/Adverse Reactions: Allergies MAVIS Inhibitors Allergy (Verified 11/18/16 11:52) SWELLING Home Medications: Home Meds Medication Instructions Recorded Confirmed Metoprolol Tartrate [Lopressor] 50 mg PO BID 08/19/16 11/18/16 Pantoprazole [Protonix EC Tab] 40 mg PO BID 08/19/16 11/18/16 Rosuvastatin Calcium [Crestor] 20 mg PO HS 08/19/16 11/18/16 Benzonatate [Tessalon Perle] 100 mg PO BID 08/28/16 11/18/16 Calcium Acetate [Phoslo] 667 mg PO TID 08/28/16 11/18/16 Dicyclomine [Bentyl] 10 mg PO Q8 PRN 08/28/16 11/18/16 Dolutegravir Sodium [Tivicay] 50 mg PO DAILY 08/28/16 11/18/16 Linaclotide [Linzess] 145 mcg PO DAILY 08/28/16 11/18/16 Metoclopramide [Reglan] 10 mg PO DAILY PRN 08/28/16 11/18/16 Review of Systems - Physician Review All systems were reviewed & negative as marked: Yes - Review of Systems Constitutional: Fatigue. absent: Fevers, Other (chills) Respiratory: Normal. absent: SOB Cardiovascular: Normal. absent: Chest Pain Gastrointestinal: Abdominal Pain, Diarrhea, Nausea, Vomiting Neurological: absent: Headache, Dizziness Physical Exam Vital Signs Reviewed: Yes Vital Signs Temp Pulse Resp BP Pulse Ox 11/18/16 11:49 98.2 F 90 18 103/63 97 Temperature: Afebrile Blood Pressure: Normal Pulse: Regular Respiratory Rate: Normal Appearance: Positive for: Well-Appearing, Non-Toxic, Comfortable Pain Distress: None Mental Status: Positive for: Alert and Oriented X 3 - Systems Exam Head: Present: Atraumatic, Normocephalic Pupils: Present: PERRL Extroacular Muscles: Present: EOMI Conjunctiva: Present: Normal Mouth: Present: Moist Mucous Membranes Pharnyx: No: ERYTHEMA, EXUDATE, TONSILS ENLARGED Neck: Present: Normal Range of Motion Respiratory/Chest: Present: Clear to Auscultation, Good Air Exchange. No: Respiratory Distress, Accessory Muscle Use Cardiovascular: Present: Regular Rate and Rhythm, Normal S1, S2. No: Murmurs Abdomen: Present: Tenderness (mild generalized ), Normal Bowel Sounds, Scars ( multiple surgical). No: Distention, Peritoneal Signs, Rebound, Guarding Back: Present: Normal Inspection. No: CVA Tenderness Upper Extremity: Present: Normal Inspection. No: Cyanosis, Edema Lower Extremity: Present: Normal Inspection. No: Edema Neurological: Present: GCS=15, CN II-XII Intact, Speech Normal Skin: Present: Warm, Dry, Normal Color. No: Rashes Psychiatric: Present: Alert, Oriented x 3, Normal Insight, Normal Concentration Medical Decision Making ED Course and Treatment: 11/18/16 12:42 Impression: A 56 year old female with abdominal pain, nausea, vomiting and diarrhea. Plan: -- CT abdomen and pelvis -- labs -- Protonix, Zofran -- Reassess and disposition Prior Visits: Notes and results from previous visits were reviewed. Patient last reported to the emergency department on 08/28/16 for evaluation of abdominal pain. Patient admitted under Dr. uRbalcava's service. Progress Notes: 11/18/16 13:55 CT Abdomen and Pelvis without intravenous contrast Creator : Kimo Trujillo MD IMPRESSION: No acute intra-abdominal findings 11/18/16 14:08 CT scan of the abdomen and pelvis is read by the radiologist shows no acute findings. Blood work is unrevealing. Potassium is elevated, but patient has dialysis scheduled for this afternoon. She is chronically anemic. She will be discharged home accompanied by family to go directly to dialysis. Prescription for Zofran ODT and Percocet given. - Lab Interpretations Lab Results: 11/18/16 13:15 11/18/16 13:15 Lab Results 07/17/17 13:15: Sodium 138, Potassium 5.9 H*, Chloride 94 L, Carbon Dioxide 25, Anion Gap 25 H, BUN 80 H, Creatinine 17.6 H*, Est GFR ( Amer) 3, Est GFR (Non-Af Amer) 2, Random Glucose 107, Calcium 9.5, Total Bilirubin 0.6, AST 26, ALT 14, Alkaline Phosphatase 76, Total Protein 9.4 H, Albumin 4.3, Globulin 5.1 , Albumin/Globulin Ratio 0.8 L, Lipase 199 11/18/16 13:15: WBC 6.1 D, RBC 3.01 L, Hgb 10.8 L, Hct 32.5 L, MCV 108.0 H, MCH 35.9 H, MCHC 33.2, RDW 14.0, Plt Count 152, MPV 10.7, Gran % 60.4, Lymph % ( Auto) 24.8, Guthrie % (Auto) 13.8 H, Eos % (Auto) 0.8 L, Baso % (Auto) 0.2, Gran # 3.67, Lymph # 1.5, Guthrie # 0.8 H, Eos # 0.1, Baso # 0.01 I have reviewed the lab results: Yes - RAD Interpretation Radiology Orders: 11/18/16 12:19 ABD & PELVIS W/O PO OR IV CONT [CT] Stat - Medication Orders Current Medication Orders: Discontinued Medications Ondansetron HCl (Zofran Inj) 4 mg IVP STAT STA Stop: 11/18/16 12:20 Last Admin: 11/18/16 13:14 Dose: 4 mg Pantoprazole Sodium (Protonix Inj) 40 mg IVP STAT STA Stop: 11/18/16 12:20 Last Admin: 11/18/16 13:14 Dose: 40 mg - Scribe Statement The provider has reviewed the documentation as recorded by the Yanet Maldoando Provider Scribe Attestation: All medical record entries made by the Scribcourtney were at my direction and personally dictated by me. I have reviewed the chart and agree that the record accurately reflects my personal performance of the history, physical exam, medical decision making, and the department course for this patient. I have also personally directed, reviewed, and agree with the discharge instructions and disposition. Disposition/Present on Arrival - Present on Arrival Any Indicators Present on Arrival: No History of DVT/PE: No History of Uncontrolled Diabetes: No Urinary Catheter: No History of Decub. Ulcer: No History Surgical Site Infection Following: None - Disposition Have Diagnosis and Disposition been Completed?: Yes Diagnosis: Renal failure, Abdominal pain, Hyperkalemia, Gastroenteritis, Nausea vomiting and diarrhea, Chronic abdominal pain Disposition: HOME/ ROUTINE Disposition Time: 14:10 Patient Plan: Discharge Patient Problems: Current Active Problems Problem Status Onset Abdominal pain Acute Chronic abdominal pain Acute Gastroenteritis Acute Hyperkalemia Acute Nausea vomiting and diarrhea Acute Renal failure Acute Condition: FAIR Discharge Instructions (ExitCare): Gastroenteritis (ED), Acute Nausea and Vomiting (ED), Acute Diarrhea (ED), Acute Abdominal Pain (ED) Additional Instructions: Go directly to dialysis. Prescriptions: oxyCODONE/Acetaminophen [Percocet 5/325 mg Tab] 1 ea PO Q6 #5 tab Ondansetron [Zofran Odt] 4 mg SL Q6 #20 odt Referrals: Ranjith Rubalcava MD [Primary Care Provider] - Follow up with primary
[2016-11-18 13:23] LABS: BASO # 0.01 K/mm3 (0.0-2.0); BASO % 0.2 % (0.0-3.0); EOS # 0.1 (0.0-0.7); EOS % 0.8 % (1.5-5.0); GRAN # 3.67 (1.4-6.5); GRAN % 60.4 % (50.0-68.0); HEMOGLOBIN 10.8 gm/dL (12.0-16.0); LYMPH # 1.5 (1.2-3.4); LYMPH % 24.8 % (22.0-35.0); MEAN CORPUSCULAR HEMOGLOBIN 35.9 pg (25.0-35.0); MEAN CORPUSCULAR HGB CONC 33.2 g/dl (31.0-37.0); MEAN PLATELET VOLUME 10.7 fl (7.0-11.0); MONO # 0.8 (0.1-0.6); MONO % 13.8 % (1.0-6.0); PLATELET COUNT 152 10^3/uL (120.0-450.0); RBC 3.01 10^6/uL (3.5-6.1); WHITE BLOOD COUNT 6.1 10^3/ul (4.5-11.0)
[2016-11-18 13:31] LABS: ALB/GLOB RATIO 0.8 (1.1-1.8); ALBUMIN 4.3 g/dL (3.0-4.8); CALCIUM 9.5 mg/dL (8.4-10.5)
--- NOTE | 2016-11-18 13:54 | CT ---
PROCEDURE: CT Abdomen and Pelvis without intravenous contrast HISTORY: pain COMPARISON: 08/28/2016 TECHNIQUE: Without contrast.. Contrast Dose: Radiation dose: Total exam DLP = 214 mGy-cm. This CT exam was performed using one or more of the following dose reduction techniques: Automated exposure control, adjustment of the mA and/or kV according to patient size, and/or use of iterative reconstruction technique. FINDINGS: LOWER THORAX: Unremarkable. LIVER: Unremarkable. No gross lesion or ductal dilatation. GALLBLADDER AND BILE DUCTS: Gallbladder removed. Dilated common duct PANCREAS: Unremarkable. No gross lesion or ductal dilatation. SPLEEN: Unremarkable. ADRENALS: Unremarkable. No mass. KIDNEYS AND URETERS: There is atrophy of both kidneys VASCULATURE: Unremarkable. No aortic aneurysm. BOWEL: Unremarkable. No obstruction. No gross mural thickening. APPENDIX: Unremarkable. Normal appendix. PERITONEUM: Unremarkable. No free fluid. No free air. LYMPH NODES: Unremarkable. No enlarged lymph nodes. BLADDER: Unremarkable. REPRODUCTIVE: Unremarkable. BONES: No acute fracture. OTHER FINDINGS: None. IMPRESSION: No acute intra-abdominal findings
[2016-11-18 15:12] VITALS: BP 110/62; PULSE 68; RESP 16; O2SAT 99
== END 2016-11-18 14:15 | disposition home or self-care (01) ==
LOC: ED 11:06
DX: I12.0 Hypertensive chronic kidney disease with stage 5 chronic kidney disease or end stage renal disease (principal); N18.6 End stage renal disease; K29.70 Gastritis, unspecified, without bleeding; E87.5 Hyperkalemia; Z99.2 Dependence on renal dialysis
CPT/HCPCS: 74176; 80053; 83690; 85025; 96374; 96375; 99284; C9113; J2405

== ENCOUNTER 2017-01-23 11:31 | Emergency (ER) | payer MEDICARE, OTHER ==
[2017-01-23 11:53] VITALS: TEMP 100.3; O2SAT 100; BMI 22.3
[2017-01-23] MEDS ORDERED: Morphine 4 mg/ml ISec IVP STA (12:41)
[2017-01-23] MEDS ORDERED: DiphenhydrAMINE 50 mg/ml Inj IVP STA (12:44)
[2017-01-23 12:53] LABS: BASO # 0.01 K/mm3 (0.0-2.0); BASO % 0.2 % (0.0-3.0); EOS % 0.4 % (1.5-5.0); GRAN # 3.67 (1.4-6.5); GRAN % 67.3 % (50.0-68.0); HEMATOCRIT 35.1 % (36.0-48.0); LYMPH # 1.1 (1.2-3.4); MEAN CORPUSCULAR HEMOGLOBIN 33.8 pg (25.0-35.0); MEAN CORPUSCULAR HGB CONC 31.9 g/dl (31.0-37.0); MEAN PLATELET VOLUME 9.9 fl (7.0-11.0); MONO # 0.7 (0.1-0.6); MONO % 12.1 % (1.0-6.0); RED CELL DISTRIBUTION WIDTH 14.4 % (11.5-14.5); WHITE BLOOD COUNT 5.5 10^3/ul (4.5-11.0)
--- NOTE | 2017-01-23 12:55 | ED PDOC ---
Arrival/HPI - General Historian: Patient - History of Present Illness Time/Duration: < week Symptom Onset: Sudden Symptom Course: Worsening Quality: Unable to Describe <Shaun Calderón - Last Filed: 01/23/17 15:16> <Jake Stovall - Last Filed: 01/23/17 18:48> - General Chief Complaint: Abdominal Pain Time Seen by Provider: 01/23/17 11:37 - History of Present Illness Narrative History of Present Illness (Text): 01/23/17 12:45 This is a 56 year old female with PMHx HIV, CAD s/p stents, ESRD (on HD MWF), anemia, erosive gastritis, esophageal ulcer who presented complaining of right flank pain. Patient states that she is able to urinate a few drops and starting 2 days ago, she experienced severe burning when urinating. Yesterday, patient also started experiencing right sided flank pain that is severe and non- radiating. Patient states that this morning, she also started experiencing left sided flank pain as well. Patient states that she has been running a low grade fever at home since yesterday. Patient also complaining of dyspnea and some palpitations this morning that have since resolved. Patient also complaining of nausea and abdominal cramps. Patient denies chills, cough, chest pain. PMD: Dr. Rubalcava ID: Dr. Rodriguez Cardio: Dr. Tran GI: Dr. Snider Nephro: Dr. Crump (StephaneShaun Pedro Luis) Past Medical History - Infectious Disease Hx of Infectious Diseases: None - Tetanus Immunization Tetanus Immunization: Unknown - Cardiac Hx Cardiac Disorders: Yes (CAD, Mi, stents) Hx WV: Yes (3) Hx Hypertension: Yes - Pulmonary Hx Respiratory Disorders: No - Neurological Hx Neurological Disorder: Yes Hx Migraine: Yes - HEENT Hx HEENT Disorder: No - Renal Hx Renal Disorder: Yes Type of Dialysis Access: Left Upper Arm Fistula Date of Last Dialysis Treatment: 01/23/17 - Endocrine/Metabolic Hx Endocrine Disorders: Yes Hx Hypothyroidism: Yes - Hematological/Oncological Hx Blood Disorders: Yes (blood transfusion) Hx Anemia: Yes - Integumentary Hx Dermatological Disorder: Yes (generalized body itch on and off) - Musculoskeletal/Rheumatological Hx Falls: No - Gastrointestinal Hx Gastrointestinal Disorders: Yes (peptic ulcer) Hx Gall Bladder Disease: Yes Other/Comment: esophageal ulcer, hx c dif 05/08/16 - Genitourinary/Gynecological Hx Genitourinary Disorders: (esrd, hd [facility] m w f) Hx Hematuria: Yes Hx Urinary Tract Infection: Yes - Psychiatric Hx Anxiety: Yes Hx Depression: Yes Hx Emotional Abuse: No Hx Physical Abuse: No Hx Substance Use: No (Used 25 Years Ago) - Surgical History Hx Appendectomy: Yes Hx Cardiac Catheterization: Yes Hx Section: Yes Hx Cholecystectomy: Yes Hx Coronary Stent: Yes Other/Comment: x4, excision bartholin cyst, right chest udall in and out, d&c, insertion and removal of peritoneal dialysis cyst, renal bx, left av shunt, mrcp - Anesthesia Hx Anesthesia: Yes Hx Anesthesia Reactions: No Hx Malignant Hyperthermia: No - Suicidal Assessment Feels Threatened In Home Enviroment: No <Shaun Calderón - Last Filed: 01/23/17 15:16> - Provider Review Nursing Documentation Reviewed: Yes <Jake Stovall - Last Filed: 01/23/17 18:48> Family/Social History Smoking Status: Never Smoked Hx Alcohol Use: No Hx Substance Use: No (Used 25 Years Ago) Hx Substance Use Treatment: No <Shaun Calderón - Last Filed: 01/23/17 15:16> - Physician Review Nursing Documentation Reviewed: Yes Family/Social History: No Known Family HX <Jake Stovall - Last Filed: 01/23/17 18:48> Allergies/Home Meds <Shaun Calderón - Last Filed: 01/23/17 15:16> <Jake Stovall - Last Filed: 01/23/17 18:48> Allergies/Adverse Reactions: Allergies MAVIS Inhibitors Allergy (Verified 01/23/17 11:59) SWELLING Home Medications: Home Meds Medication Instructions Recorded Confirmed Metoprolol Tartrate [Lopressor] 50 mg PO BID 08/19/16 01/23/17 Pantoprazole [Protonix EC Tab] 40 mg PO BID 08/19/16 01/23/17 Rosuvastatin Calcium [Crestor] 20 mg PO HS 08/19/16 01/23/17 Benzonatate [Tessalon Perle] 100 mg PO BID 08/28/16 01/23/17 Calcium Acetate [Phoslo] 667 mg PO TID 08/28/16 01/23/17 Dicyclomine [Bentyl] 10 mg PO Q8 PRN 08/28/16 01/23/17 Dolutegravir Sodium [Tivicay] 50 mg PO DAILY 08/28/16 01/23/17 Linaclotide [Linzess] 145 mcg PO DAILY 08/28/16 01/23/17 Metoclopramide [Reglan] 10 mg PO DAILY PRN 08/28/16 01/23/17 Review of Systems - Review of Systems Constitutional: Fevers Eyes: Normal ENT: Normal Respiratory: SOB Cardiovascular: Palpitations Gastrointestinal: Abdominal Pain (right sided), Nausea. absent: Constipation, Diarrhea, Vomiting Genitourinary Female: Dysuria, Other (bilateral flank pain). absent: Hematuria Musculoskeletal: Normal Skin: Normal Neurological: Normal Endocrine: Normal Hemo/Lymphatic: Normal Psychiatric: Normal <Shaun Calderón S - Last Filed: 01/23/17 15:16> Physical Exam Vital Signs Reviewed: Yes Temperature: Febrile Blood Pressure: Hypertensive Pulse: Regular Respiratory Rate: Normal Appearance: Positive for: Non-Toxic, Uncomfortable Pain Distress: Moderate Mental Status: Positive for: Alert and Oriented X 3 - Systems Exam Head: Present: Atraumatic, Normocephalic Pupils: Present: PERRL Extroacular Muscles: Present: EOMI Conjunctiva: Present: Normal Mouth: Present: Moist Mucous Membranes Neck: Present: Normal Range of Motion Respiratory/Chest: Present: Clear to Auscultation, Good Air Exchange. No: Accessory Muscle Use Cardiovascular: Present: Regular Rate and Rhythm, Normal S1, S2 Abdomen: Present: Tenderness (right upper and lower quadrant tenderness), Normal Bowel Sounds. No: Distention Back: Present: CVA Tenderness (Bilaterally but right worse than left) Upper Extremity: Present: Normal Inspection, NORMAL PULSES. No: Edema Lower Extremity: Present: Normal Inspection, NORMAL PULSES. No: Edema, CALF TENDERNESS Neurological: Present: GCS=15, CN II-XII Intact Skin: Present: Warm, Dry, Normal Color Psychiatric: Present: Alert, Oriented x 3 <Shaun Calderón S - Last Filed: 01/23/17 15:16> Vital Signs Temp Pulse Resp BP Pulse Ox 01/23/17 14:18 86 18 135/79 100 01/23/17 13:04 97 H 16 137/89 100 01/23/17 11:52 100.3 F H 96 H 18 139/92 H 100 Medical Decision Making - Lab Interpretations I have reviewed the lab results: Yes - EKG Interpretation Interpreted by ED Physician: Yes Type: 12 lead EKG <Shaun Calderón - Last Filed: 01/23/17 15:16> <Jake Stovall - Last Filed: 01/23/17 18:48> ED Course and Treatment: 01/23/17 12:59 Impression: This is a 56 year old female with PMHx HIV, ESRD on HD complaining of right sided flank pain. Differential diagnoses include but are not limited to nephrolithiasis vs pyelonephritis. Plan: CBC, CMP, Mag, Phos, Coags, Amylase, Lipase Portable CXR, EKG Blood cultures UA CT abdomen/pelvis w.o. contrast Morphine 4 mg IV Benadryl 25 mg IV Tylenol [address] abdomen/pelvis w.o. contrast FINDINGS: LOWER THORAX: Heart is enlarged. No significant pericardial effusion. Lung bases clear. LIVER: Liver is mildly enlarged measuring nearly 20 cm in CC dimension. No obvious hepatic mass or collection seen on this noncontrast. GALLBLADDER AND BILE DUCTS: Re- demonstrated are changes of cholecystectomy with metallic clips the gallbladder fossa PANCREAS: Unremarkable. No mass. No ductal dilatation. SPLEEN: Spleen exhibits normal size and attenuation pattern without mass collection or calcification. . ADRENALS: Mildly enlarged left adrenal gland KIDNEYS AND URETERS: Re- demonstrated are atrophic kidneys with presumed vascular calcifications in the hilar regions bilaterally. Calcifications are also seen along abdominal aorta ; rule out sequela of chronic renal artery stenosis. No obstructive hydronephrosis BLADDER: Urinary bladder is incompletely distended and cannot be adequately evaluated. Urinary bladder wall is somewhat thickened as well felt to be secondary to incomplete distention however the possibility of a cystitis not excluded. REPRODUCTIVE: Small calcifications seen along the uterine fundus which may represent vascular calcifications or possibly calcified uterine fibroid. APPENDIX: The appendix appears unremarkable best seen on axial image number [id number]. No evidence of acute appendicitis BOWEL: Evaluation of the bowel is somewhat limited due to the lack of oral contrast material. The stomach is incompletely distended which may account for thick-walled appearance. Gastritis or other intrinsic/ invasive wall lesion not excluded. Visualized loops of small bowel exhibit normal contour and caliber. No evidence of acute mechanical small bowel obstruction. . Moderate amount of stool seen within the rectosigmoid suggesting mild fecal retention/constipation. PERITONEUM: Unremarkable. No fluid collection. No free air. LYMPH NODES: No significant lymphadenopathy VASCULATURE: Unremarkable. No aortic aneurysm. BONES: The osseous structures appear grossly intact. OTHER FINDINGS: None. IMPRESSION: Mild hepatomegaly. Changes of cholecystectomy. Urinary bladder is incompletely distended which may account for slight thick- walled appearance however cystitis not excluded. Atrophic kidneys unchanged; rule out renal artery stenosis. Mildly enlarged left adrenal gland. Findings also suggest mild fecal retention/constipation. Patient discharged with prescriptions for 7 day Cipro 500mg Q12H, Flexeril 10 mg HS. Tylenol #3 was prescribed for pain since the patient has prior GI history of ulcers and gastritis. (Shaun Calderón) A 56 year old female with right flank pain. In agreement with resident note, which includes further HPI details. Patient was seen and evaluated with resident , came up with plan and treatment together. EKG shows NSR at [address]-segment elevations, normal intervals, normal axis. Interpreted by me. On my exam: Abdomen is soft an not tender. She does have right CVAT but is tenderness just to mild touch of her lower back as well. This may reflex MSK vs Kidney stone. CT reviewed with no Kidney Stones. She is unable to urinate. Considering her low grade fever and symptoms, will treat with Cipro for 7 days as a tx for suspected early pyelonephritis. Patient has narcotics at home she gets from her PMD. She requested medications to go home with. Will Rx Flexeril and Tylenol # 3. (Jake Stovall) - Lab Interpretations Lab Results: 01/23/17 12:26 01/23/17 12:26 Lab Results 01/23/17 12:26: Sodium 141, Potassium 4.5, Chloride 95 L, Carbon Dioxide 32, Anion Gap 19, BUN 36 H, Creatinine 9.4 H*, Est GFR ( Amer) 5, Est GFR ( Non-Af Amer) 4, Random Glucose 95, Calcium 8.5, Phosphorus 3.7, Magnesium 1.7, Total Bilirubin 0.9, AST 48 H, ALT 34, Alkaline Phosphatase 79, Total Protein 9.2 H, Albumin 4.3, Globulin 5.0, Albumin/Globulin Ratio 0.9 L, Amylase 220 H, Lipase 289 01/23/17 12:26: PT 11.4, INR 1.06, APTT 29.3 01/23/17 12:26: WBC 5.5, RBC 3.31 L, Hgb 11.2 L, Hct 35.1 L, MCV 106.0 H, MCH 33.8, MCHC 31.9, RDW 14.4, Plt Count 109 L, MPV 9.9, Gran % 67.3, Lymph % (Auto ) 20.0 L, Lyman % (Auto) 12.1 H, Eos % (Auto) 0.4 L, Baso % (Auto) 0.2, Gran # 3.67, Lymph # 1.1 L, Lyman # 0.7 H, Eos # 0.0, Baso # 0.01 - RAD Interpretation Radiology Orders: 01/23/17 12:13 CHEST PORTABLE [RAD] Stat 01/23/17 12:15 ABDOMEN & PELVIS [ABD & PELVIS W/O PO OR IV CONT] [CT] Stat - Medication Orders Current Medication Orders: Discontinued Medications Acetaminophen (Tylenol 325mg Tab) 650 mg PO STAT STA Stop: 01/23/17 12:44 Last Admin: 01/23/17 13:02 Dose: 650 mg Diphenhydramine HCl (Benadryl) 25 mg IVP STAT STA Stop: 01/23/17 12:45 Last Admin: 01/23/17 13:02 Dose: 25 mg IVP Administration Document 01/23/17 13:02 SF (Rec: 01/23/17 13:03 SF [id number]) Charges for Administration # of IVP Administrations 1 Morphine Sulfate (Morphine) 4 mg IVP STAT STA Stop: 01/23/17 12:42 Last Admin: 01/23/17 13:03 Dose: 4 mg MAR Pain Assessment Document 01/23/17 13:03 SF (Rec: 01/23/17 13:03 SF [id number] Pain Reassessment Is this a pain reassessment? Yes Sleep Is patient sleeping during reassessment? No Presence of Pain Presence of Pain Yes IVP Administration Document 01/23/17 13:03 SF (Rec: 01/23/17 13:03 SF [id number]) Charges for Administration # of IVP Administrations 1 Ondansetron HCl (Zofran Inj) 4 mg IVP STAT STA Stop: 01/23/17 12:42 Last Admin: 01/23/17 13:03 Dose: 4 mg IVP Administration Document 01/23/17 13:03 SF (Rec: 01/23/17 13:03 SF [id number] Charges for Administration # of IVP Administrations 1 <Shaun Calderón S - Last Filed: 01/23/17 15:16> - PA / SPORTS PHYSICIAN / Resident Statement MD/DO has reviewed & agrees with the documentation as recorded. MD/DO has examined the patient and agrees with the treatment plan. - Scribe Statement The provider has reviewed the documentation as recorded by the Scribe <Jake Stovall - Last Filed: 01/23/17 18:48> - Scribe Statement Geni Avalos Provider Scribe Attestation: All medical record entries made by the Scribe were at my direction and personally dictated by me. I have reviewed the chart and agree that the record accurately reflects my personal performance of the history, physical exam, medical decision making, and the department course for this patient. I have also personally directed, reviewed, and agree with the discharge instructions and disposition. (Jake Stovall) Disposition/Present on Arrival - Present on Arrival Any Indicators Present on Arrival: No History of DVT/PE: No History of Uncontrolled Diabetes: No Urinary Catheter: No History of Decub. Ulcer: No History Surgical Site Infection Following: None - Disposition Have Diagnosis and Disposition been Completed?: Yes Disposition Time: 02:40 <StephaneShaun Pedro Luis - Last Filed: 01/23/17 15:16> - Disposition Patient Plan: Discharge <Jake Stovall - Last Filed: 01/23/17 18:48> - Disposition Diagnosis: Pyelonephritis Disposition: HOME/ ROUTINE Condition: STABLE Additional Instructions: Take the antibiotic Ciprofloxacin 1 tab by mouth every 12 hours for 7 days. Take the Tylenol #3 one tab by mouth every 6 hours only if needed for pain. Take the Flexeril 1 tab by mouth in the evening before bedtime. Please follow up with Dr. Rubalcava and Dr. Crump. Please also follow up with your infectious disease physician Dr. Rodriguez. If there are any new or worsening symptoms, please return to the emergency room. Prescriptions: Acetaminophen with Codeine [Tylenol with Codeine No. 3 300 mg-30 mg] 1 tab PO Q6H PRN #20 tab PRN Reason: Pain, Moderate (4-7) Ciprofloxacin [Cipro] 500 mg PO Q12H 7 Days #14 tab Cyclobenzaprine [Cyclobenzaprine HCl] 10 mg PO HS #10 tab Referrals: Meliton Rodriguez MD [Staff Provider] - Follow up with primary Ranjith Rubalcava MD [Primary Care Provider] - Follow up with primary David Crump MD [Staff Provider] - Follow up with primary Forms: [employer] (I[place]ic)
[2017-01-23 12:56] LABS: ALB/GLOB RATIO 0.9 (1.1-1.8); BILIRUBIN,TOTAL 0.9 mg/dL (0.2-1.3); CALCIUM 8.5 mg/dL (8.4-10.5); MAGNESIUM 1.7 mg/dL (1.7-2.2); PHOSPHOROUS 3.7 mg/dL (2.5-4.5); POTASSIUM 4.5 mmol/L (3.6-5.0); TOTAL PROTEIN 9.2 g/dL (5.8-8.3)
[2017-01-23 12:59] LABS: INR 1.06 (0.93-1.08); PARTIAL THROMBOPLASTIN TIME 29.3 Seconds (23.7-30.8)
--- NOTE | 2017-01-23 14:00 | CT ---
PROCEDURE: CT abdomen and pelvis dated 01/23/2017 HISTORY: Rule out kidney stones. Rule out pyelonephritis. COMPARISON: None. Comparison made with CT scan of the abdomen pelvis 11/18/2016 a TECHNIQUE: Contiguous axial images of the abdomen and pelvis without oral or intravenous contrast material. No IV contrast given. Coronal and Sagittal reformats generated. Radiation dose: Total exam DLP = 212.99 mGy-cm. This CT exam was performed using one or more of the following dose reduction techniques: Automated exposure control, adjustment of the mA and/or kV according to patient size, and/or use of iterative reconstruction technique. FINDINGS: LOWER THORAX: Heart is enlarged. No significant pericardial effusion. Lung bases clear. LIVER: Liver is mildly enlarged measuring nearly 20 cm in CC dimension. No obvious hepatic mass or collection seen on this noncontrast. GALLBLADDER AND BILE DUCTS: Re- demonstrated are changes of cholecystectomy with metallic clips the gallbladder fossa PANCREAS: Unremarkable. No mass. No ductal dilatation. SPLEEN: Spleen exhibits normal size and attenuation pattern without mass collection or calcification. . ADRENALS: Mildly enlarged left adrenal gland KIDNEYS AND URETERS: Re- demonstrated are atrophic kidneys with presumed vascular calcifications in the hilar regions bilaterally. Calcifications are also seen along abdominal aorta ; rule out sequela of chronic renal artery stenosis. No obstructive hydronephrosis BLADDER: Urinary bladder is incompletely distended and cannot be adequately evaluated. Urinary bladder wall is somewhat thickened as well felt to be secondary to incomplete distention however the possibility of a cystitis not excluded. REPRODUCTIVE: Small calcifications seen along the uterine fundus which may represent vascular calcifications or possibly calcified uterine fibroid. APPENDIX: The appendix appears unremarkable best seen on axial image number [id number]. No evidence of acute appendicitis BOWEL: Evaluation of the bowel is somewhat limited due to the lack of oral contrast material. The stomach is incompletely distended which may account for thick-walled appearance. Gastritis or other intrinsic/ invasive wall lesion not excluded. Visualized loops of small bowel exhibit normal contour and caliber. No evidence of acute mechanical small bowel obstruction. . Moderate amount of stool seen within the rectosigmoid suggesting mild fecal retention/constipation. PERITONEUM: Unremarkable. No fluid collection. No free air. LYMPH NODES: No significant lymphadenopathy VASCULATURE: Unremarkable. No aortic aneurysm. BONES: The osseous structures appear grossly intact. OTHER FINDINGS: None. IMPRESSION: Mild hepatomegaly. Changes of cholecystectomy. Urinary bladder is incompletely distended which may account for slight thick-walled appearance however cystitis not excluded. Atrophic kidneys unchanged; rule out renal artery stenosis. Mildly enlarged left adrenal gland. Findings also suggest mild fecal retention/constipation.
--- NOTE | 2017-01-23 14:02 | RAD ---
HISTORY: dyspnea COMPARISON: Comparison made with prior chest radiograph 08/19/2016 FINDINGS: LUNGS: Minimal bibasilar atelectasis. No focal consolidation PLEURA: No significant pleural effusion identified, no pneumothorax apparent. CARDIOVASCULAR: Heart size is mildly enlarged aorta is ectatic and uncoiled. OSSEOUS STRUCTURES: No significant abnormalities. VISUALIZED UPPER ABDOMEN: Normal. OTHER FINDINGS: None. IMPRESSION: Minimal bibasilar atelectasis.
[2017-01-23 14:19] VITALS: BP 135/79; PULSE 86; RESP 18
--- NOTE | 2017-01-23 18:43 | CARD ---
APPROVED REPORT EKG Measurement Heart [id number] <Conclusion> Normal sinus rhythm Possible Left atrial enlargement Prolonged QT Abnormal ECG
== END 2017-01-23 15:20 | disposition home or self-care (01) ==
LOC: ED 11:31
DX: N10 Acute pyelonephritis (principal); I12.0 Hypertensive chronic kidney disease with stage 5 chronic kidney disease or end stage renal disease; N18.6 End stage renal disease; Z99.2 Dependence on renal dialysis; I25.10 Atherosclerotic heart disease of native coronary artery without angina pectoris; I25.2 Old myocardial infarction; Z95.5 Presence of coronary angioplasty implant and graft
CPT/HCPCS: 71010; 74176; 80053; 82150; 83690; 83735; 84100; 85025; 85610; 85730; 87040; 93005; 96374; 96375; 99285; J1200; J2270; J2405

== ENCOUNTER 2017-05-31 14:27 | Inpatient (IN) | payer MEDICARE ==
--- NOTE | 2017-05-31 15:12 | ED PDOC ---
Arrival/HPI - General Chief Complaint: Abdominal Pain Time Seen by Provider: 05/31/17 14:52 Historian: Patient - History of Present Illness Narrative History of Present Illness (Text): 05/31/17 15:06 56 year old female , with past medical history of whose past medical history includes HIV(+), RI x4, CAD, stent placement, hypothyroidism, anemia, renal dysfunction (on dialysis), and agina, presents to the emergency department [id number] of epigastric discomfort radiating to left side of her back for past two weeks. Patient informs pain as a burning sensation worsening with warm fluids and alleviation with cold fluid intake. Patient informs visiting Dr. Shukla and was prescribed protonix with mild alleviation to symptoms. Patient informs associated cough, sore throat, vomiting (3 episodes since onset), mild shortness of breath and mild chest pain. Patient was on dialysis today and was observed to have an elevated temperature bringing her to the emergency department today. Patient informs normal bowel movement but noticed dark "black " two days ago. Patient is compliant with the flu shot this year. Patient denies any other somatic complaints. Time/Duration: > week Symptom Onset: Gradual Symptom Course: Unchanged Quality: Aching Activities at Onset: Light Past Medical History - Provider Review Nursing Documentation Reviewed: Yes - Infectious Disease Hx of Infectious Diseases: None - Tetanus Immunization Tetanus Immunization: Unknown - Cardiac Hx Cardiac Disorders: Yes (CAD, Mi, stents) Hx RI: Yes (3) Hx Hypertension: Yes - Pulmonary Hx Respiratory Disorders: No - Neurological Hx Neurological Disorder: Yes Hx Migraine: Yes - HEENT Hx HEENT Disorder: No - Renal Hx Renal Disorder: Yes Hx Dialysis: Yes () Type of Dialysis Access: BILL AV fistula Date of Last Dialysis Treatment: 05/31/17 - Endocrine/Metabolic Hx Endocrine Disorders: Yes Hx Hypothyroidism: Yes - Hematological/Oncological Hx Blood Disorders: Yes (blood transfusion) Hx Anemia: Yes - Integumentary Hx Dermatological Disorder: Yes (generalized body itch on and off) - Musculoskeletal/Rheumatological Hx Falls: No - Gastrointestinal Hx Gastrointestinal Disorders: Yes (peptic ulcer) Hx Gall Bladder Disease: Yes Other/Comment: esophageal ulcer, hx c dif 05/08/16 - Genitourinary/Gynecological Hx Genitourinary Disorders: (esrd, hd renal ventures m w f) Hx Hematuria: Yes Hx Urinary Tract Infection: Yes - Psychiatric Hx Anxiety: Yes Hx Depression: Yes Hx Emotional Abuse: No Hx Physical Abuse: No Hx Substance Use: No (Used 25 Years Ago) - Surgical History Hx Appendectomy: Yes Hx Cardiac Catheterization: Yes Hx Section: Yes Hx Cholecystectomy: Yes Hx Coronary Stent: Yes Other/Comment: x4, excision bartholin cyst, right chest udall in and out, d&c, insertion and removal of peritoneal dialysis cyst, renal bx, left av shunt, mrcp - Anesthesia Hx Anesthesia: Yes Hx Anesthesia Reactions: No Hx Malignant Hyperthermia: No - Suicidal Assessment Feels Threatened In Home Enviroment: No Family/Social History - Physician Review Nursing Documentation Reviewed: Yes Family/Social History: No Known Family HX Smoking Status: Never Smoked Hx Alcohol Use: No Hx Substance Use: No (Used 25 Years Ago) Hx Substance Use Treatment: No Allergies/Home Meds Allergies/Adverse Reactions: Allergies MAVIS Inhibitors Allergy (Verified 01/23/17 11:59) SWELLING Home Medications: Home Meds Medication Instructions Recorded Confirmed Metoprolol Tartrate [Lopressor] 50 mg PO BID 08/19/16 05/31/17 Pantoprazole [Protonix EC Tab] 40 mg PO BID 08/19/16 05/31/17 Rosuvastatin Calcium [Crestor] 20 mg PO HS 08/19/16 05/31/17 Benzonatate [Tessalon Perle] 100 mg PO BID 08/28/16 05/31/17 Calcium Acetate [Phoslo] 667 mg PO TID 08/28/16 05/31/17 Dolutegravir Sodium [Tivicay] 50 mg PO DAILY 08/28/16 05/31/17 Metoclopramide [Reglan] 10 mg PO DAILY PRN 08/28/16 05/31/17 Review of Systems - Physician Review All systems were reviewed & negative as marked: Yes - Review of Systems Constitutional: Fevers ENT: Sore Throat Respiratory: SOB, Cough Cardiovascular: Chest Pain Gastrointestinal: Abdominal Pain, Stool Changes, Nausea, Vomiting. absent: Diarrhea, Hematochezia, Hematemesis Genitourinary Female: Other (does not make urine) Musculoskeletal: Back Pain Skin: absent: Rash Neurological: absent: Headache Hemo/Lymphatic: absent: Easy Bleeding Physical Exam Vital Signs Reviewed: Yes Vital Signs Temp Pulse Resp BP Pulse Ox 05/31/17 17:20 81 18 163/96 H 98 05/31/17 14:27 98.8 F 79 18 168/79 H 98 Temperature: Afebrile Blood Pressure: Hypertensive Pulse: Regular Respiratory Rate: Normal Appearance: Positive for: Non-Toxic, Uncomfortable Pain Distress: Moderate Mental Status: Positive for: Alert and Oriented X 3 - Systems Exam Head: Present: Atraumatic Pupils: Present: PERRL Extroacular Muscles: Present: EOMI Mouth: Present: Moist Mucous Membranes Pharnyx: No: ERYTHEMA Neck: Present: Normal Range of Motion. No: Meningeal Signs Respiratory/Chest: Present: Clear to Auscultation. No: Respiratory Distress, Wheezes, Decreased Breath Sounds Cardiovascular: Present: Regular Rate and Rhythm, Murmurs Abdomen: Present: Tenderness. No: Distention, Peritoneal Signs Rectal: No: Gross Blood Upper Extremity: Present: NORMAL PULSES Lower Extremity: Present: Neurovascularly Intact. No: CALF TENDERNESS Neurological: Present: Normal Sensory Function, Normal Cerebellar Funct Skin: Present: Warm Psychiatric: Present: Alert, Normal Concentration. No: Depressed Mood Medical Decision Making ED Course and Treatment: 05/31/17 15:13 Impression: 56 year old female presents to the emergency department complaining of epigastric discomfort radiating to her back. Plan: -- CT of Abdomen/Pelvis -- EKG -- Labs -- CXR -- Blood Culture -- Urine Culture -- Reassess and disposition Progress Notes: Patient has extensive cardiac history. Pain however has been for several weeks and is palpable in epigastric region. Currently no melena or active bleeding noted. She notes "fever of 99" at dialysis. On current exam afebrile, does not appear septic. She reports intermittent nausea. Pain is localized to epigastric region. She reports that she has had her gallbladder removed. She reports history of HIV although "I haven't taken any medications for a few months". I reviewed INITIAL history and exam with her PMD Dr. Rubalcava. With serial exams, she complains of more severe pain. No benefit with iv protonix. EKG and initial card isos unremarkable. Given palpable nature of pain and association with eating, suspect gi etiology of pain. As pain persistent despite medication, iv pain medication ordered. Amylase is elevated. Cannot exclude possible component of pancreatitis. Dr. Allen presented to ED and states he is covering for Dr. Rubalcava. I reviewed case with Dr. Allen, and patient will be admitted for observation, serial exams, treatment for possible pancreatitis. CT abdomen no free air or obstruction. CXR unremarkable. - Lab Interpretations Lab Results: 05/31/17 15:23 05/31/17 15:23 Lab Results 05/31/17 16:50: Amylase 224 H, Lipase 295 05/31/17 16:48: Influenza Typ A,B (EIA) Negative for flu a/b 05/31/17 15:23: Sodium 141, Potassium 3.6, Chloride 96 L, Carbon Dioxide 31, Anion Gap 18, BUN 14, Creatinine 5.5 H, Est GFR ( Amer) 10, Est GFR (Non- Af Amer) 8, Random Glucose 76, Calcium 9.5, Total Bilirubin 0.8, AST 47 H D, ALT 23, Alkaline Phosphatase 69, Lactate Dehydrogenase 616, Total Creatine Kinase 51, Troponin I 0.02 D, Total Protein 9.6 H, Albumin 4.4, Globulin 5.2, Albumin/Globulin Ratio 0.9 L, Amylase Pending, Lipase Pending 05/31/17 15:23: PT 11.6, INR 1.02, APTT 30.6 05/31/17 15:23: WBC 3.7 L D, RBC 2.97 L, Hgb 10.4 L, Hct 33.0 L, MCV 111.1 H D, MCH 35.0, MCHC 31.5, RDW 14.5, Plt Count 124, MPV 10.7, Gran % 52.0, Lymph % ( Auto) 30.5, [place] % (Auto) 16.1 H, Eos % (Auto) 1.1 L, Baso % (Auto) 0.3, Gran # 1.91, Lymph # 1.1 L, [place] # 0.6, Eos # 0.0, Baso # 0.01 - RAD Interpretation Radiology Orders: 05/31/17 15:12 ABD & PELVIS W/O PO OR IV CONT [CT] Stat CHEST ONE VIEW [RAD] Stat - EKG Interpretation EKG Interpretation (Text): EKG at 15:59 normal sinus rhythm rate of 85 with prolonged qt, no acute st elevations Interpreted by ED Physician: Yes Type: 12 lead EKG - Medication Orders Current Medication Orders: Discontinued Medications Diphenhydramine HCl (Benadryl) 25 mg IVP ONCE ONE Stop: 05/31/17 17:04 Last Admin: 05/31/17 17:18 Dose: 25 mg IVP Administration Document 05/31/17 17:18 GMD (Rec: 05/31/17 17:18 GMD [id number]) Charges for Administration # of IVP Administrations 1 Morphine Sulfate (Morphine) 2 mg IVP STAT STA Stop: 05/31/17 17:04 Last Admin: 05/31/17 17:18 Dose: 2 mg MAR Pain Assessment Document 05/31/17 17:18 GMD (Rec: 05/31/17 17:19 GMD [id number]) Pain Reassessment Is this a pain reassessment? No Sleep Is patient sleeping during reassessment? No Presence of Pain Presence of Pain Yes IVP Administration Document 05/31/17 17:18 GMD (Rec: 05/31/17 17:19 GMD [id number]) Charges for Administration # of IVP Administrations 1 Pantoprazole Sodium (Protonix Inj) 40 mg IVP ONCE STA Stop: 05/31/17 16:10 Last Admin: 05/31/17 16:41 Dose: 40 mg IVP Administration Document 05/31/17 16:41 GMD (Rec: 05/31/17 16:42 GMD [id number]) Charges for Administration # of IVP Administrations 1 - Scribe Statement The provider has reviewed the documentation as recorded by the Busteribe Angie Campo. All medical record entries made by the Busteribcourtney were at my direction and personally dictated by me. I have reviewed the chart and agree that the record accurately reflects my personal performance of the history, physical exam, medical decision making, and the department course for this patient. I have also personally directed, reviewed, and agree with the discharge instructions and disposition. Disposition/Present on Arrival - Present on Arrival Any Indicators Present on Arrival: No History of DVT/PE: No History of Uncontrolled Diabetes: No Urinary Catheter: No History of Decub. Ulcer: No History Surgical Site Infection Following: None - Disposition Have Diagnosis and Disposition been Completed?: Yes Diagnosis: Abdominal pain, Pancreatitis Disposition: HOSPITALIZED Disposition Time: 17:00 Patient Plan: Admission, Observation Condition: FAIR
[2017-05-31 15:59] LABS: BASO # 0.01 K/mm3 (0.0-2.0); BASO % 0.3 % (0.0-3.0); EOS % 1.1 % (1.5-5.0); GRAN # 1.91 (1.4-6.5); HEMOGLOBIN 10.4 g/dL (12.0-16.0); LYMPH # 1.1 (1.2-3.4); LYMPH % 30.5 % (22.0-35.0); MEAN CELL VOLUME 111.1 fl (80.0-105.0); MEAN CORPUSCULAR HGB CONC 31.5 g/dl (31.0-37.0); MEAN PLATELET VOLUME 10.7 fl (7.0-11.0); MONO # 0.6 (0.1-0.6); MONO % 16.1 % (1.0-6.0); RBC 2.97 10^6/uL (3.5-6.1); RED CELL DISTRIBUTION WIDTH 14.5 % (11.5-14.5); WHITE BLOOD COUNT 3.7 10^3/ul (4.5-11.0)
[2017-05-31 16:10] LABS: ALB/GLOB RATIO 0.9 (1.1-1.8); ALBUMIN 4.4 g/dL (3.0-4.8); CALCIUM 9.5 mg/dL (8.4-10.5)
[2017-05-31 16:12] LABS: INR 1.02 (0.93-1.08); PARTIAL THROMBOPLASTIN TIME 30.6 Seconds (25.1-36.5); PROTHROMBIN TIME 11.6 SECONDS (9.4-12.5)
[2017-05-31 16:15] LABS: TROPONIN I 0.02 ng/mL
[2017-05-31 16:59] LABS: AMYLASE 224 U/L (35-125); LIPASE 295 U/L (23-300)
[2017-05-31] MEDS ORDERED: Morphine 2 mg/ml ISec IVP STA (17:03)
[2017-05-31] MEDS ORDERED: DiphenhydrAMINE 50 mg/ml Inj IVP ONE (17:03)
--- NOTE | 2017-05-31 17:08 | CT ---
PROCEDURE: CT Abdomen and Pelvis without intravenous contrast HISTORY: diffuse abdominal pain with fever COMPARISON: 01/23/2017. TECHNIQUE: CT scan of the abdomen and pelvis was performed without administration of intravenous contrast. Oral contrast was not administered. Coronal and sagittal reformatted images were obtained. Radiation dose: Total exam DLP = 208.67 mGy-cm. This CT exam was performed using one or more of the following dose reduction techniques: Automated exposure control, adjustment of the mA and/or kV according to patient size, and/or use of iterative reconstruction technique. FINDINGS: LOWER THORAX: The lung bases are clear. There is persistent mild cardiomegaly. No pericardial effusion. LIVER: Liver is enlarged. No gross lesion or ductal dilatation. GALLBLADDER AND BILE DUCTS: Status post cholecystectomy. PANCREAS: Normal in size. No gross lesion or ductal dilatation. SPLEEN: Normal in size. ADRENALS: Persistent mild thickening of the left adrenal gland. No discrete nodule the KIDNEYS AND URETERS: There is redemonstration of small atrophic kidneys. VASCULATURE: No aortic aneurysm. BOWEL: The small bowel loops are normal in caliber. There is moderate amount of stool scattered throughout the colon. No bowel dilatation or obstruction. There is fecal stasis in the rectum. APPENDIX: Normal appendix. PERITONEUM: No free fluid. No free air. LYMPH NODES: No enlarged lymph nodes. BLADDER: Decompressed. REPRODUCTIVE: Normal in appearance. BONES: No acute fracture. Within normal limits for the patient's age. OTHER FINDINGS: None. IMPRESSION: 1. No acute abdominal or pelvic abnormality. 2. Constipation with fecal stasis in the rectum. No evidence of bowel obstruction. 3. Bilateral small atrophic kidneys.
--- NOTE | 2017-05-31 17:39 | RAD ---
PROCEDURE: CHEST RADIOGRAPH, 1 VIEW HISTORY: cough, sob, fever COMPARISON: 03/03/2017. FINDINGS: LUNGS: The lungs are well inflated and clear. PLEURA: No pneumothorax or pleural fluid seen. CARDIOVASCULAR: There is persistent mild cardiomegaly. OSSEOUS STRUCTURES: No significant abnormalities. VISUALIZED UPPER ABDOMEN: Normal. OTHER FINDINGS: None. IMPRESSION: No active pulmonary disease. Persistent mild cardiomegaly.
--- NOTE | 2017-05-31 19:38 | CP.PCM.HP ---
History of Present Illness - History of Present Illness History of Present Illness: (covering for Dr. Rubalcava) This is a 56 year old female with history of HIV, chronic anemia, ESRD on hemodialysis and coronary artery disease who presented to the Emergency Room with epigastric pain radiating to left side of back for about 2 weeks. Patient denies nausea, vomiting or diarrhea. She reports episode of black stool. She says she has not taken her HIV medicines for a while. Present on Admission - Present on Admission Any Indicators Present on Admission: No History of DVT/PE: No History of Uncontrolled Diabetes: No Urinary Catheter: No Decubitus Ulcer Present: No Review of Systems - Constitutional Constitutional: Fever. absent: Chills, Excessive Sweating - Cardiovascular Cardiovascular: absent: Dyspnea, Dyspnea on Exertion, Edema - Respiratory Respiratory: absent: Cough, Dyspnea, Hemoptysis Past Patient History - Infectious Disease Hx of Infectious Diseases: None - Tetanus Immunizations Tetanus Immunization: Unknown - Past Medical History & Family History Past Medical History?: Yes - Past Social History Smoking Status: Never Smoked - CARDIAC Hx Cardiac Disorders: Yes (CAD, Mi, stents) Hx Heart Attack: Yes (3) Hx Hypertension: Yes - PULMONARY Hx Respiratory Disorders: No - NEUROLOGICAL Hx Neurological Disorder: Yes Hx Migraine: Yes - HEENT Hx HEENT Problems: No - RENAL Hx Chronic Kidney Disease: Yes Hx Dialysis: Yes (-fri) Type of Dialysis Access: BILL AV fistula Date of Last Dialysis Treatment: 05/31/17 - ENDOCRINE/METABOLIC Hx Endocrine Disorders: Yes Hx Hypothyroidism: Yes - HEMATOLOGICAL/ONCOLOGICAL Hx Blood Disorders: Yes (blood transfusion) Hx Anemia: Yes - INTEGUMENTARY Hx Dermatological Problems: Yes (generalized body itch on and off) - MUSCULOSKELETAL/RHEUMATOLOGICAL Hx Falls: No - GASTROINTESTINAL Hx Gastrointestinal Disorders: Yes (peptic ulcer) Hx Gall Bladder Disease: Yes Other/Comment: esophageal ulcer, hx c dif 05/08/16 - GENITOURINARY/GYNECOLOGICAL Hx Genitourinary Disorders: (esrd, hd renal ventures ) Hx Hematuria: Yes Hx Urinary Tract Infection: Yes - PSYCHIATRIC Hx Anxiety: Yes Hx Depression: Yes Hx Emotional Abuse: No Hx Physical Abuse: No Hx Substance Use: No (Used 25 Years Ago) - SURGICAL HISTORY Hx Appendectomy: Yes Hx Cardiac Catheterization: Yes Hx Section: Yes Hx Cholecystectomy: Yes Hx Coronary Stent: Yes Other/Comment: x4, excision bartholin cyst, right chest udall in and out, d&c, insertion and removal of peritoneal dialysis cyst, renal bx, left av shunt, mrcp - ANESTHESIA Hx Anesthesia: Yes Hx Anesthesia Reactions: No Hx Malignant Hyperthermia: No Meds Allergies/Adverse Reactions: Allergies Allergy/AdvReac Type Severity Reaction Status Date / Time MAVIS Inhibitors Allergy SWELLING Verified 01/23/17 11:59 Physical Exam - Constitutional Appears: No Acute Distress - Head Exam Head Exam: ATRAUMATIC, NORMOCEPHALIC - Respiratory Exam Respiratory Exam: Clear to Auscultation Bilateral, NORMAL BREATHING PATTERN - Cardiovascular Exam Cardiovascular Exam: +S1, +S2 - GI/Abdominal Exam GI & Abdominal Exam: Normal Bowel Sounds, Soft, Tenderness Additional comments: +epigastric tenderness - Extremities Exam Extremities exam: Positive for: normal inspection - Neurological Exam Neurological exam: Alert, Oriented x3 Results - Vital Signs Recent Vital Signs: Last Vital Signs Temp 98.8 F 05/31/17 14:27 Pulse 81 05/31/17 17:20 Resp 18 05/31/17 17:20 BP 163/96 H 05/31/17 17:20 Pulse Ox 98 05/31/17 17:20 - Labs Result Diagrams: 06/01/17 06:25 06/01/17 06:25 Assessment & Plan - Assessment and Plan (Free Text) Assessment: Epigastric abdominal pain with elevated amylase R/O pancreatitis ESRD on HD HIV Hypothyroidism Anemia- Macrocytic Plan: Patient with elevated amylase and epigastric abdominal pain. continue protonix. Will repeat amylase in AM and have evaluation with fingerprint classifier. Patient has not been compliant with her HIV meds. We will re-order the treatment she was on last time she was in the hospital. Will consult Dr. Shukla as patient is a dialysis patient. Patient has reported episode of dark stool. Will check iron, TIBC, B12 and folate levels and stool for occult blood. CAT scan of the abdomen shows constipation. We will order Miralax.
[2017-05-31 20:08] LABS: TOTAL IRON BINDING CAPACITY 117 ug/dL (265-497)
[2017-05-31 20:12] LABS: % IRON SATURATION 104 % (20-55); IRON 121 ug/dL (45-180)
[2017-05-31 20:16] LABS: FREE T4 0.8 ng/dL (0.78-2.19)
[2017-05-31] MEDS: DiphenhydrAMINE 50 mg/ml Inj IVP PRN (21:19)
[2017-05-31] MEDS: Morphine 5 MG/ML SYRINGE IVP PRN (21:19)
[2017-05-31 21:33] VITALS: BMI 21.7
[2017-05-31] MEDS ORDERED: Influenza Vaccine 60 mcg/0.5 mL SYR (4YR UP) IM ONE (21:33)
[2017-05-31] MEDS ORDERED: Pneumococcal 23-Valent Vaccine IM ONE (21:33)
[2017-05-31] MEDS ORDERED: POLYETHYLENE GLYCOL 3350 17 GM/Dose PACKET PO SCH (22:00)
[2017-06-01] MEDS: DiphenhydrAMINE 50 mg/ml Inj IVP PRN ×5 (04:19→23:30)
[2017-06-01] MEDS: Morphine 5 MG/ML SYRINGE IVP PRN ×2 (04:19→09:59)
[2017-06-01] MEDS: Levothyroxine 25 MCG TAB PO SCH (05:41)
[2017-06-01 07:42] LABS: BASO # 0.01 K/mm3 (0.0-2.0); BASO % 0.3 % (0.0-3.0); EOS # 0.1 (0.0-0.7); EOS % 1.3 % (1.5-5.0); GRAN # 2.27 (1.4-6.5); GRAN % 58.8 % (50.0-68.0); HEMOGLOBIN 9.4 g/dL (12.0-16.0); LYMPH % 24.6 % (22.0-35.0); MEAN CORPUSCULAR HEMOGLOBIN 34.4 pg (25.0-35.0); MEAN PLATELET VOLUME 10.8 fl (7.0-11.0); MONO # 0.6 (0.1-0.6); RBC 2.73 10^6/uL (3.5-6.1); RED CELL DISTRIBUTION WIDTH 14.5 % (11.5-14.5); WHITE BLOOD COUNT 3.9 10^3/ul (4.5-11.0)
[2017-06-01 08:06] LABS: ALB/GLOB RATIO 0.8 (1.1-1.8); CALCIUM 9.4 mg/dL (8.4-10.5)
--- NOTE | 2017-06-01 08:39 | CP.PCM.PN ---
Subjective - Date & Time of Evaluation Date of Evaluation: 06/01/17 Time of Evaluation: 08:15 - Subjective Subjective: (covering for Dr. Rubalcava) Patient is seen this morning. She is complaining of nausea, vomiting and epigastric abdominal pain. Objective - Vital Signs/Intake and Output Vital Signs (last 24 hours): Temp Pulse Resp BP Pulse Ox 99.3 F 92 H 18 147/93 H 97 06/01/17 06:00 06/01/17 06:00 06/01/17 06:00 06/01/17 06:00 06/01/17 06:00 Intake and Output: 06/01/17 06/01/17 06:59 18:59 Intake Total 480 Balance 480 - Medications Medications: Current Medications Calcium Acetate (Phoslo) 667 mg PO [facility] Last Admin: 06/01/17 08:31 Dose: 667 mg Clopidogrel Bisulfate (Plavix) 75 mg PO DAILY [facility] Diphenhydramine HCl (Benadryl) 25 mg IVP Q4H PRN PRN Reason: Allergy symptoms Last Admin: 06/01/17 04:19 Dose: 25 mg Folic Acid (Folic Acid) 1 mg PO DAILY [facility] Lactulose (Enulose) 20 gm PO ONCE ONE Stop: 06/01/17 08:35 Levothyroxine Sodium (Synthroid) 25 mcg PO 0600 [facility] Last Admin: 06/01/17 05:41 Dose: Not Given Metoprolol Tartrate (Lopressor) 50 mg PO Q12 [facility] Morphine Sulfate (Morphine) 2 mg IVP Q4H PRN PRN Reason: Pain, moderate (4-7) Last Admin: 06/01/17 04:19 Dose: 2 mg Ondansetron HCl (Zofran Inj) 4 mg IVP Q4H PRN PRN Reason: Nausea/Vomiting Pantoprazole Sodium (Protonix Inj) 40 mg IVP DAILY [facility] Polyethylene Glycol (Miralax) 17 gm PO HS [facility] Ritonavir (Norvir) 100 mg PO BRK [facility] Last Admin: 06/01/17 08:34 Dose: Not Given - Labs Labs: 06/01/17 06:25 06/01/17 06:25 PT 11.6 SECONDS (9.4-12.5) 05/31/17 15:23 INR 1.02 (0.93-1.08) 05/31/17 15:23 APTT 30.6 Seconds (25.1-36.5) 05/31/17 15:23 - Constitutional Appears: No Acute Distress - Head Exam Head Exam: ATRAUMATIC, NORMOCEPHALIC - Respiratory Exam Respiratory Exam: Clear to Ausculation Bilateral, NORMAL BREATHING PATTERN - Cardiovascular Exam Cardiovascular Exam: +S1, +S2 - GI/Abdominal Exam GI & Abdominal Exam: Soft, Tenderness, Normal Bowel Sounds Additional comments: + epigastric tenderness - Neurological Exam Neurological Exam: Alert, Awake, Oriented x3 Assessment and Plan - Assessment and Plan (Free Text) Assessment: Epigastric abdominal pain with elevated amylase rule out pancreatitis, rule out peptic ulcer disease continue IV Protonix. will order Zofran as needed for nausea. Will place on liquid diet. Awaiting GI Evaluation. Hemoglobin has dropped to 9.4 from 10.4 yesterday. Awaiting stool for occult blood. Patient is constipated. continue Miralax. will order Lactulose. continue Morphine as needed for pain. Patient developed fever last night of 100. Will consult infectious disease. Urine and blood cultures are pending.
[2017-06-01 11:42] LABS: FOLATE 14.4 ng/mL
[2017-06-01] MEDS: HYDROmorphone 0.5 mg/0.5 ml ISec IVP PRN ×3 (14:13→23:30)
[2017-06-01] MEDS: POLYETHYLENE GLYCOL 3350 17 GM/Dose PACKET PO SCH ×2 (14:14→18:48)
--- NOTE | 2017-06-01 19:34 | CARD ---
APPROVED REPORT EKG Measurement Heart [id number] <Conclusion> Poor data quality, interpretation may be adversely affected Normal sinus rhythm Prolonged QT Abnormal ECG
--- NOTE | 2017-06-02 00:12 | CON ---
DATE: 06/01/2017 REQUESTING PHYSICIAN: Jung Newton MD REASON FOR CONSULTATION: I have been asked to see this 56-year-old female with history of HIV disease, end-stage renal disease on hemodialysis, coronary artery disease, chronic anemia, chronic abdominal pain with multiple [facility] admissions for abdominal pain with her last admission being about 1 year ago, who comes to the hospital with increasing mid abdominal pain for about 10 days. It started while she was on dialysis approximately a week and a half ago. She has some nausea but no vomiting, rectal bleeding, melena or hematemesis. The patient apparently has not been compliant with her medications. CT scan of the abdomen and pelvis performed in the emergency room revealed no evidence of pancreatitis. Her amylase and lipase in the emergency room was mildly elevated. There was increased stool throughout the colon and rectum on CT scan. PAST MEDICAL HISTORY: Notable for HIV disease, noncompliant with medications; coronary artery disease, status post multiple coronary artery stents. There is a history of ID, hypertension, chronic abdominal pain, end-stage renal disease on hemodialysis, anemia, history of C. diff, history of pill-induced esophageal ulcer. PAST SURGICAL HISTORY: Notable for cholecystectomy, appendectomy, x4, removal of Bartholin cyst. SOCIAL HISTORY: She denies cigarette smoking, alcohol use or illicit drug use. REVIEW OF SYSTEMS: A 14-point review of systems is notable for abdominal pain. CURRENT MEDICATIONS: Include Levoxyl 25 mcg daily, folic acid, dolutegravir, darunavir, Plavix 75 mg once a day, PhosLo 667 mg three times a day, Tessalon Perles 100 mg b.i.d., oxycodone 5/325 one q.6 hours, Crestor 20 mg h.s., Protonix 40 mg once a day, Zofran 4 mg p.r.n., metoprolol 50 mg b.i.d., Reglan 10 mg daily. PHYSICAL EXAMINATION: GENERAL: A well-developed female, lying in bed, in no acute distress. VITAL SIGNS: Revealed a temperature of 99.3, blood pressure 147/93, heart rate 92. HEENT: Revealed sclerae to be white. Conjunctivae pink. NECK: Supple. CARDIOPULMONARY: Revealed regular rate and rhythm. LUNGS: Revealed lungs to be clear. ABDOMEN: Soft, mild diffuse tenderness with some voluntary guarding. No rebound. EXTREMITIES: Showed no edema. She has an AV shunt in her left arm. LABORATORY DATA: Revealed white blood cell count of 3.9, hemoglobin 9.4, MCV of 111, platelet count of 122,000. Chemistries revealed BUN 21, creatinine of 8, AST 40. Serum amylase is 241. Serum lipase is 374. ASSESSMENT: A 56-year-old female with end-stage renal disease, HIV positivity, coronary artery disease, chronic abdominal pain, hypertension, who has had multiple [facility] admissions for abdominal pain in the past, comes in with a 10-day history of recurrent abdominal pain associated with some nausea. She is noted to have an elevated amylase and lipase. I think this is from her end-stage renal disease. I do not believe that the patient has acute pancreatitis. She had a CT scan which did not show any acute findings. There is increased stool throughout the colon. The patient's abdominal pain may be secondary to constipation. PLAN: 1. We will advance the patient to a low-fat diet. 2. We will start the patient on MiraLax 17 g p.o. three times a day. NOTE: The patient has had a cholecystectomy in the past. Paul Snider MD cc:
--- NOTE | 2017-06-02 00:38 | CON ---
DATE: 06/01/2017 LOCATION: The patient is seen in room 235, bed 2. CHIEF COMPLAINT: Abdominal pain times several days. HISTORY OF PRESENT ILLNESS: This is a 56-year-old female who is known to me from previous admission through this positive HIV and AIDS with low T-cells. The patient has been noncompliant of her HIV medication darunavir, Norvir, and abacavir. She states that she has not taken her HIV medication now for sometime several months and the patient with chronic renal failure, on hemodialysis; coronary artery disease; urinary tract infection; the patient has esophageal ulcer, erosive gastritis, and history of pancreatitis. The patient is an alcohol user many years ago who stopped drinking approximately 20 years ago. She states she has not had a drink for 20 years and has been having epigastric pain. No fevers. No chills. She is having nausea and vomiting. No diarrhea or constipation. No dysuria or frequency. No headaches or blurred vision. PAST MEDICAL HISTORY: Significant for HIV and AIDS with T-cells, last T-cells were in the 60s; chronic renal failure, on hemodialysis; coronary artery disease; urinary tract infection; esophageal ulcer; erosive gastritis; alcoholism; and pancreatitis. PAST SURGICAL HISTORY: Significant for cardiac catheterization, cholecystectomy and appendectomy. The patient has no known recent travel. ALLERGIES: SHE IS ALLERGIC TO MAVIS INHIBITOR. MEDICATIONS AT HOME. Include darunavir, ritonavir, abacavir, and Tivicay which is dolutegravir, which has not been taking any of her HIV medications for month. She is supposed to be on Plavix, oxycodone, rosuvastatin, metoprolol, folic acid, and Synthroid. PHYSICAL EXAMINATION: GENERAL: She is in bed, in no acute distress, and answering questions appropriate. VITAL SIGNS: Temperature of 100, heart rate of 92, respiratory rate of 20, and blood pressure of 156/92. HEENT: Unremarkable. NECK: Supple. LUNGS: Decreased breath sounds. HEART: Normal S1 and S2. ABDOMEN: Mild epigastric pain. No tenderness. No rebound. No guarding. No masses. LABORATORY DATA: Reveals a white count of 3.7, hemoglobin of 10, and platelets of 124. Coagulation is noted. Chemistries reveal the creatinine of 5.5. The patient's troponin is normal. Lipase is elevated at 374. Amylase is also elevated at 241. Serology is negative. The patient had a CAT scan of the abdomen and pelvis, which reveals no acute findings. Dr. Newton's history and physical examination is reviewed and Dr. Newton's progress note from today is reviewed. The patient also had a chest x-ray reported to be negative. The patient's Emergency Room chart is reviewed. ASSESSMENT AND PLAN: This is a 56-year-old female with positive human immunodeficiency virus and acquired immune deficiency syndrome with T-cells in the 60s with 8% that was in 05/2016, chronic renal failure, on hemodialysis; coronary artery disease, history of pancreatitis, history of alcohol abuse, last drink 20 years ago, now with systemic inflammatory response syndrome, tachycardia and leukopenia. The patient would pancreatitis, human immunodeficiency virus and acquired immune deficiency syndrome, who has not been on any HIV medication for several months and noncompliant and we will review the CAT scan, check on the cultures, and etiology of the pancreatitis is entirely clear, though radiologically, the patient does not meet criteria for pancreatitis clinically. She does have epigastric pain, radiation to the back associated with nausea and vomiting with an elevated lipase. We will follow closely with you. No need for any antibiotics. We will check on the cultures and discussion about adherence as occurred once again. We will discontinue her Norvir that was just written for today alone monitored for human immunodeficiency virus and we will follow closely with you. Meliton Rodriguez MD
[2017-06-02 03:36] VITALS: RESP 20
[2017-06-02] MEDS: DiphenhydrAMINE 50 mg/ml Inj IVP PRN ×4 (04:44→21:21)
[2017-06-02] MEDS: HYDROmorphone 0.5 mg/0.5 ml ISec IVP PRN ×4 (04:44→21:22)
[2017-06-02] MEDS: Levothyroxine 25 MCG TAB PO SCH (05:45)
[2017-06-02] MEDS: POLYETHYLENE GLYCOL 3350 17 GM/Dose PACKET PO SCH ×3 (09:18→17:14)
[2017-06-02] MEDS: Atovaquone 750 mg/5 ml Susp UD PO SCH ×2 (09:58→17:14)
[2017-06-02 10:13] LABS: BASO # 0.01 K/mm3 (0.0-2.0); BASO % 0.2 % (0.0-3.0); EOS # 0.1 (0.0-0.7); EOS % 1.4 % (1.5-5.0); GRAN # 2.23 (1.4-6.5); GRAN % 50.2 % (50.0-68.0); HEMOGLOBIN 9.8 g/dL (12.0-16.0); LYMPH # 1.5 (1.2-3.4); LYMPH % 34.5 % (22.0-35.0); MEAN CELL VOLUME 111.9 fl (80.0-105.0); MEAN CORPUSCULAR HEMOGLOBIN 34.3 pg (25.0-35.0); MEAN CORPUSCULAR HGB CONC 30.6 g/dl (31.0-37.0); MEAN PLATELET VOLUME 10.6 fl (7.0-11.0); MONO # 0.6 (0.1-0.6); MONO % 13.7 % (1.0-6.0); RBC 2.86 10^6/uL (3.5-6.1); RED CELL DISTRIBUTION WIDTH 14.6 % (11.5-14.5); WHITE BLOOD COUNT 4.4 10^3/ul (4.5-11.0)
[2017-06-02 10:43] LABS: CALCIUM 9.5 mg/dL (8.4-10.5)
[2017-06-02] MEDS ORDERED: Sod Polystyrene Sulf 15 gm/60 ml Susp PO ONE (11:00)
--- NOTE | 2017-06-02 14:02 | PN ---
DATE: 06/02/2017 SUBJECTIVE: The patient is lying in bed comfortable. She denies any further abdominal pain, nausea or vomiting. She is tolerating solid foods. PHYSICAL EXAMINATION VITAL SIGNS: Include temperature of 99, blood pressure of 128/75, heart rate of 68. HEENT: Reveal sclerae to be white. Conjunctivae pink. NECK: Supple. CHEST: Reveal lungs to be clear. HEART: Exam reveals a regular rate and rhythm. ABDOMEN: Soft, mild diffuse tenderness. EXTREMITIES: Show no edema. She has an AV shunt in her left arm. LABORATORY DATA: Revealed white blood cell count 4.4, hemoglobin 9.8, platelet count 132,000. Chemistries reveal potassium of 5.2, BUN 38, creatinine 11. IMPRESSION: A 56-year-old female with end-stage renal disease, human immunodeficiency virus disease with chronic recurrent abdominal pain. The patient states that her abdominal pain has resolved. She denies any nausea or vomiting. She is tolerating some solid foods. RECOMMENDATIONS: 1. Continue PPI. 2. Continue low-fat diet. 3. The patient is to be discharged home with outpatient followup. Paul Snider MD
--- NOTE | 2017-06-02 17:10 | CP.PCM.PN ---
Subjective - Date & Time of Evaluation Date of Evaluation: 06/02/17 Time of Evaluation: 10:30 - Subjective Subjective: Comfortable, no abdominal pain, no fevers. Objective - Vital Signs/Intake and Output Vital Signs (last 24 hours): Temp Pulse Resp BP Pulse Ox 99.0 F 68 20 128/75 98 06/02/17 06:00 06/02/17 06:00 06/02/17 06:00 06/02/17 06:00 06/02/17 06:00 Intake and Output: 06/02/17 06/02/17 06:59 18:59 Intake Total 240 Output Total 0 Balance 240 - Medications Medications: Current Medications Calcium Acetate (Phoslo) 667 mg PO WM [facility] Last Admin: 06/02/17 07:40 Dose: 667 mg Clopidogrel Bisulfate (Plavix) 75 mg PO DAILY [facility] Last Admin: 06/01/17 09:59 Dose: 75 mg Diphenhydramine HCl (Benadryl) 25 mg IVP Q4H PRN PRN Reason: Allergy symptoms Last Admin: 06/02/17 08:39 Dose: 25 mg Folic Acid (Folic Acid) 1 mg PO DAILY [facility] Last Admin: 06/01/17 10:00 Dose: 1 mg Hydromorphone HCl (Dilaudid) 0.5 mg IVP Q4H PRN PRN Reason: Pain, moderate (4-7) Last Admin: 06/02/17 08:40 Dose: 0.5 mg Levothyroxine Sodium (Synthroid) 25 mcg PO 0600 [facility] Last Admin: 06/02/17 05:45 Dose: 25 mcg Metoprolol Tartrate (Lopressor) 50 mg PO Q12 [facility] Last Admin: 06/01/17 22:01 Dose: 50 mg Ondansetron HCl (Zofran Inj) 4 mg IVP Q4H PRN PRN Reason: Nausea/Vomiting Last Admin: 06/01/17 10:00 Dose: 4 mg Pantoprazole Sodium (Protonix Inj) 40 mg IVP DAILY [facility] Last Admin: 06/01/17 10:00 Dose: 40 mg Polyethylene Glycol (Miralax) 17 gm PO TID [facility] Last Admin: 06/01/17 18:48 Dose: 17 gm - Labs Labs: PT 11.6 SECONDS (9.4-12.5) 05/31/17 15:23 INR 1.02 (0.93-1.08) 05/31/17 15:23 APTT 30.6 Seconds (25.1-36.5) 05/31/17 15:23 - Constitutional Appears: Non-toxic - Head Exam Head Exam: NORMAL INSPECTION - Respiratory Exam Respiratory Exam: Decreased Breath Sounds - Cardiovascular Exam Cardiovascular Exam: +S1, +S2 - GI/Abdominal Exam GI & Abdominal Exam: Soft. absent: Tenderness Assessment and Plan - Assessment and Plan (Free Text) Plan: Assessment HIV and AIDS, non-compliant with ART history of Cdiff associated diarrhea history of left upper lobe HCAP erosive gastritis HTN chronic renal failure on hemodialysis coronary artery disease history of UTI history of esophageal ulcer S/P cholecystecomty Plan continue ART and PJP Prophylaxis will follow clinically
--- NOTE | 2017-06-02 23:25 | CON ---
DATE: 06/02/2017 REASON FOR CONSULTATION: Abdominal pain, hyperkalemia, ESRD. HISTORY OF PRESENT ILLNESS: A 56-year-old lady known to me from outpatient hemodialysis, went to the emergency room post dialysis on Friday because of abdominal pain. Patient has been complaining of epigastric pain. In the emergency room, she also reported that she had a very dark/black, bloody bowel movement on Friday. And then she did not have any further BM until Friday. The BM on Friday was still dark, but administrative program specialist in color. She denies any fever. She denies any chills. She denies any chest tightness. She complains of nausea. She complains of lack of appetite. She complains of bloating and distention. In the emergency room, patient was found to have elevated amylase and hence the patient was admitted to rule out pancreatitis. CT of her abdomen and pelvis showed no acute abdominal abnormality, a lot of fecal stasis in the rectum was seen. PAST MEDICAL AND SURGICAL HISTORY: HIV, hypertension, CAD, PTCA and stents x3, ESRD, anemia of chronic kidney disease, secondary hyperparathyroidism. FAMILY HISTORY: Hypertension. SOCIAL HISTORY: No smoking, no alcohol use, no IV drug abuse. ALLERGIES: MAVIS INHIBITORS. CURRENT MEDICATIONS: Benadryl, Dilaudid, folic acid, Lopressor 50 b.i.d., Mepron 750 b.i.d., MiraLax 17 g three times a day, PhosLo, Plavix, Protonix, Synthroid, Zofran. REVIEW OF SYSTEMS: All systems are reviewed, pertinent positives as mentioned in history of presenting illness, rest unremarkable. PHYSICAL EXAMINATION: GENERAL: Middle-aged lady lying in bed, complaining of nausea. VITAL SIGNS: Blood pressure 127/76, heart rate 68, respiratory rate 18, temperature 99, T-max is 100. HEENT: Normocephalic, atraumatic, positive pallor. NECK: Supple, no JVD. LUNGS: Bilateral equal entry, no rales. CARDIAC: S1, S2. Regular rate and rhythm, no murmur, no rub. ABDOMEN: Distended, soft, tenderness in the epigastrium, bowel sounds present. EXTREMITIES: No lower extremity edema. LABORATORY DATA: WBC 4.4, hemoglobin 9.8, hematocrit 32, platelets 133. Sodium 137, potassium 5.2, chloride 95, CO2 of 29, BUN 38, creatinine 11.0, glucose 95, calcium 9.5. Amylase 206, initially it was 224; lipase 374, down to 110. Cultures negative. ASSESSMENT: 1. Acute pancreatitis? 2. Mild hyperkalemia. 3. Hypertension. 4. End-stage renal disease. 5. Underlying coronary artery disease. 6. Human immunodeficiency virus. PLAN: 1. Avoid using Kayexalate, risk of bowel necrosis. 2. Agree with MiraLax. 3. Soap-water enema. 4. Dialysis tomorrow. Thank you for the courtesy of this consultation. Meryl Shukla MD
[2017-06-03] MEDS: HYDROmorphone 0.5 mg/0.5 ml ISec IVP PRN ×2 (01:19→05:49)
[2017-06-03] MEDS: DiphenhydrAMINE 50 mg/ml Inj IVP PRN ×2 (01:22→05:50)
[2017-06-03] MEDS: Levothyroxine 25 MCG TAB PO SCH (06:36)
--- NOTE | 2017-06-03 06:38 | DS ---
FINAL PROGRESS NOTE/DISCHARGE SUMMARY The patient is seen in room 235, bed 2. Overnight nurse's notes were reviewed. The patient had some very vague nonspecific abdominal pain. The patient stayed in the bed, slept well. The patient slept most of the time according to the nurses' notes. OBJECTIVE: VITAL SIGNS: T-max is 99 to 98 degrees, telemetry shows sinus rhythm. Heart rate is 65, 68, 73, 77; blood pressure 127/76, 128/79, 132/84 and 155/92; respirations 20; O2 saturation 98%. HEENT: The patient's head examination normocephalic, atraumatic. HEENT examination shows pinkish pale conjunctivae. Anicteric sclerae. No oropharyngeal lesion. NECK: No neck rigidity. CHEST: Examination kyphosis. LUNGS: Examination shows occasional rhonchi to the upper lung melchor anteriorly. No rales, crackles or wheezing noted. CARDIOVASCULAR: S1 and S2, regular rhythm. Positive systolic murmur in the left sternal border, right second intercostal space, left second intercostal space. ABDOMEN: Soft. Positive bowel sounds. The patient is seen lying in the bed. The patient started to guard the abdomen even before I have put my hand to examine the abdomen and the patient is grimacing with pain and even when my hand is not on the abdomen. The patient jumps up when I put my hand slightly on the abdomen without even pressing it, which appears to be a very inappropriate response to my examination. GENITALIA: Female. RECTAL: Deferred. EXTREMITY: Shows no pitting edema, no calf tenderness, no Homans' sign. Positive left upper extremity AV fistula, positive thrill noted. MUSCULOSKELETAL: Examination shows a body mass index of 22. NEUROLOGIC: The patient is alert, awake, oriented x3. Cranial nerves II through XII intact. Gait examination is not tested. VASCULAR: Examination palpable pulses. PSYCHIATRIC: Examination is negative for anxiety, depression. Negative for suicidal or homicidal ideation. Negative for auditory or visual hallucinations. DIAGNOSTICS: On 06/02/2017, WBC 4.4, hemoglobin/hematocrit 9.8 and 32, MCV 112, platelets 133. Sodium 137, potassium 5.2, chloride 95, CO2 of 29, anion gap 19, BUN 38, creatinine 11.0, GFR 4, glucose 95. AST 40, amylase is 206, lipase is 110. B12 and folate are normal. Thyroid panel is normal. Influenza negative. Blood cultures negative. The patient has been extremely noncompliant with office followup and medication. The patient states that she is not taking any medicines for months and the patient has also not been in the office for a regular visit, she has been canceling her appointment and the patient states right now that she has no medications at home, but when I checked my office [facility], the patient had multiple refills for the medication which the patient claims that she does not have any medications at home and not even at the pharmacy. At this juncture, I advised the patient to contact the pharmacy for refills of her medications, but the patient got very angry and upset. IMPRESSION AND PLAN: 1. Nonspecific abdominal pain. 2. Narcotic seeking behavior. 3. Constipation secondary to narcotic seeking behavior. 4. Severe noncompliance. 5. End-stage renal disease, hemodialysis dependent. 6. Cardiomegaly. 7. Hepatomegaly. 8. Status post cholecystectomy. 9. Chronic mild left adrenal gland thickening. 10. Constipation with colonic fecal stasis and rectal fecal stasis. 11. Macrocytic anemia. 12. Leukopenia. 13. Anemia. 14. History of human immunodeficiency virus and acquired immunodeficiency syndrome with CD4 lymphopenia. 15. Non-hemolyzed hyperkalemia. 16. End-stage renal disease, hemodialysis dependent via the left upper extremity fistula. 17. Nonspecific amylase and lipase elevation secondary to end-stage renal disease. 18. Tachycardia. 19. Low-grade fever (resolved). 20. Secondary hyperparathyroidism. 21. History of hypothyroidism. 22. Gastroparesis secondary to constipation. 23. History of coronary artery disease, history of non-ST elevation myocardial infarction and multiple angioplasty. 24. Chronic constipation. 25. Dyslipidemia. 26. History of alcohol abuse. 27. Systemic inflammatory response syndrome. 28. Chronic nonspecific abdominal pain secondary to colonic and rectal fecal stasis, constipation and fecal retention. 29. Poor compliance. At this time, the patient's case was extensively discussed with Gastroenterology and Infectious Disease. The patient has been cleared for discharge to resume all prescribed medications, which has been given to her. The patient was advised to resume all medications at home. The patient states that she does not have any refills on medication, but as mentioned that I have checked the [facility] from the office, the patient had multiple refills in the system, it appears that the patient has not been picking up her medications from the pharmacy. PLAN: At this time, the patient is discharged home on following medications. The patient is discharged home on, 1. Mepron 750 mg twice a day. 2. PhosLo 667 mg three times a day. 3. Plavix 75 mg daily. 4. Prezista 800 mg p.o. daily. 5. Tivicay 50 mg daily. 6. Folic acid 1 mg daily. 7. Synthroid 25 mcg daily. 8. Reglan 10 mg p.r.n. two to three times. 9. Lopressor 50 mg twice a day. 10. Protonix 40 mg once or twice a day. 11. MiraLax 17 gm three times a day, hold for diarrhea. 12. Crestor 20 mg daily. The patient is discharged home. DISCHARGE FOLLOWUP: Follow up with Dr. Rubalcava within 1 week. The patient is advised to follow up with HIV/AIDS doctor within 1 week. Follow up with hemodialysis three times a week. Resume all home medications as per the ambulatory orders and the prescriptions which are given to the patient upon discharge and sent to the pharmacy. The patient is advised strict compliance with medications, doctor visit, and testing etc. Time spent in the entire discharge process more than 45 minutes. Dictated and electronically signed, not read. Ranjith Rubalcava MD
[2017-06-03] MEDS ORDERED: Pantoprazole 40 mg EC Tab PO SCH (07:30)
[2017-06-03 09:27] VITALS: BP 147/82; PULSE 61; TEMP 98.6; O2SAT 100
[2017-06-03 10:32] LABS: HEMOGLOBIN 9.3 g/dL (12.0-16.0); MEAN CELL VOLUME 108.8 fl (80.0-105.0); MEAN CORPUSCULAR HEMOGLOBIN 34.2 pg (25.0-35.0); MEAN CORPUSCULAR HGB CONC 31.4 g/dl (31.0-37.0); MEAN PLATELET VOLUME 11.4 fl (7.0-11.0); RBC 2.72 10^6/uL (3.5-6.1); RED CELL DISTRIBUTION WIDTH 14.5 % (11.5-14.5); WHITE BLOOD COUNT 4.6 10^3/ul (4.5-11.0)
[2017-06-03] MEDS: POLYETHYLENE GLYCOL 3350 17 GM/Dose PACKET PO SCH ×2 (10:42→15:23)
[2017-06-03] MEDS: Atovaquone 750 mg/5 ml Susp UD PO SCH (10:42)
[2017-06-03 10:54] LABS: ALB/GLOB RATIO 0.9 (1.1-1.8); ALBUMIN 4.1 g/dL (3.0-4.8); CALCIUM 8.8 mg/dL (8.4-10.5); MAGNESIUM 1.8 mg/dL (1.7-2.2)
[2017-06-03] MEDS ORDERED: DiphenhydrAMINE 50 mg/ml Inj IVP ONE (11:04)
--- NOTE | 2017-06-03 11:42 | DS ---
FINAL PROGRESS NOTE AND DISCHARGE SUMMARY HISTORY OF PRESENT ILLNESS: The patient refused to leave yesterday afternoon and evening because the patient stated that she had frequent bowel movement after fleet enema was ordered by pharmacy scheduler. So the patient refused and declined to leave to be discharge yesterday. The patient is still in room 235, bed 2. The patient is in the process of getting dialysis. PHYSICAL EXAMINATION: VITAL SIGNS: T-max 98.6, heart rate 61, 71, 75, 68, blood pressure 147/82, 130/81, 162/82, 127/76, 128/75, respiration 20, O2 sat 97-100%. Overnight nurse's notes were reviewed. The patient slept well for most of the night. The patient refused to go down for dialysis at 6 a.m. DIAGNOSTICS: There are no diagnostic done today. The results are not available. FINAL IMPRESSION, PLAN AND DISCHARGE DIAGNOSES: 1. Nonspecific abdominal pain. 2. 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 3. Constipation secondary to narcotic seeking behavior and narcotic use. 4. Severe noncompliance. 5. Low grade fever (resolved). 6. Hypertension. 7. Leukopenia, anemia. 8. Macrocytic anemia. 9. Non hemolyzed hyperkalemia. 10. Elevated amylase and lipase, probably secondary to end-stage renal disease, hemodialysis dependent. 11. Hypertensive cardiovascular disease. 12. Human immunodeficiency virus and acquired immune deficiency syndrome noncompliant with highly active antiretroviral therapy. 13. History of coronary artery disease. 14. Noncompliance. 15. Chronic recurrent abdominal pain secondary to constipation with exacerbation secondary to narcotic use. 16. Hypertension. 17. Chronic constipation. 18. Secondary hyperparathyroidism. 19. Hypothyroidism. PLAN: Plan at this time, the patient has been cleared for discharge by all subspecialty. The patient yesterday refused to be discharged. The patient will be discharged today after dialysis. DISCHARGE MEDICATIONS: The patient has been again given all new prescriptions which includes; 1. Mepron 7-50 mg twice a day. 2. PhosLo 67 mg three times a day. 3. Plavix 75 mg daily. 4. Prezista 800 mg daily. 5. Tivicay 50 mg daily. 6. Folic acid 1 mg daily. 7. Synthroid 25 mcg daily. 8. Reglan 10 mg p.r.n. 9. Lopressor 50 mg twice a day. 10. Protonix 40 mg once or twice a day. 11. MiraLax 17 gm three times a day. 12. Crestor 20 mg daily. The patient is discharged home. DISCHARGE FOLLOWUP: Discharge followup with Dr. Rubalcava and infectious disease ID physician. Resume all home meds as per the new prescription. The patient was advised high-fiber, renal dialysis diet. During this hospitalization, the patient was extensively explained about the details of her medical condition, diagnosis, treatment plan. The patient was stressed about the importance of avoidance of narcotic use. The patient was educated and counseled about strict diet, medication compliance and compliance with physician followup as an outpatient. Time spent in the entire discharge process more than 45 minutes. Dictated and electronically signed, not read. Ranjith Rubalcava MD
--- NOTE | 2017-06-03 16:47 | PN ---
SUBJECTIVE: The patient is currently seen in dialysis. Minimum ultrafiltration. Blood pressure is stable. She still continues to complain of mid abdominal and midepigastric pain associated with nausea and vomiting. Her abdominal CT scan shows no evidence of pancreatitis. She did have a very mild elevation of her amylase and lipase which are coming down. MEDICATIONS: Medication list reviewed. The patient is currently on Benadryl, folic acid, Lopressor, meropenem, MiraLax, PhosLo, Plavix, Protonix, Synthroid, and Zofran p.r.n. OBJECTIVE: INTAKE/OUTPUT: Intake is 440, output is 0. VITAL SIGNS: Blood pressure is 147/82, temperature 98.6, respiratory rate 20 with a pulse of 61. HEENT: Exam shows her to be normocephalic, atraumatic. Conjunctivae are pale. Sclerae anicteric. NECK: Supple. No neck vein distention. CHEST: Clear to auscultation and percussion. No rales, rhonchi, or wheezing. CARDIOVASCULAR: Shows a regular rate and rhythm without murmurs, rubs, or gallops. ABDOMEN: Shows mild tenderness on palpation, midepigastric area. No rebound or guarding. No masses appreciated. EXTREMITIES: Show cannulated AV fistula, left upper extremity. No lower extremity edema. LABORATORY DATA: Today, CBC, white blood cell count 4.6, hemoglobin 9.3 with a platelet count of 143,000. Chemistries showed normal electrolytes. BUN is 52 with a creatinine of 13.5. Glucose is 118. Calcium is 8.8 with an albumin of 4.1. Phosphorus is elevated at 7.9 and the patient is back on binder therapy. Magnesium is 1.8. Iron saturations are greater than 100%. Liver enzymes, mild elevation of AST at 41. Bilirubin is normal. Amylase from yesterday is down to 206. Lipase is now normal at 110. Thyroid hormone levels are normal. Microbiology, blood cultures are negative at 48 hours. ASSESSMENT: 1. Episode of midepigastric abdominal pain. No evidence radiographically for acute pancreatitis. The patient states that the pain still persists. She still complains of mild nausea and vomiting. 2. End-stage renal disease. The patient will continue dialysis on a Friday, , Friday schedule. Today is her routine dialysis. 3. History of hypertension. Blood pressure is controlled on present medical therapy. 4. History of coronary artery disease, status post percutaneous transluminal coronary angioplasty and stents. This appears to be stable. 5. History of secondary hyperparathyroidism. The patient will be restarted back on PhosLo and she will continue renal diet. 6. History of human immunodeficiency virus. The patient had been on HAART therapy in the past. 7. Chronic abdominal pain. The patient is requesting a prescription for narcotic analgesics for discharge. This will be given to her at the time of discharge. During hospitalization, the patient may remain on present medication which is presently narcotic free. PLAN: We will discuss with Dr. Rubalcava. Her pancreatic enzymes are falling to normal. Her radiographic study shows no evidence of pancreatitis. Perhaps discharge home in the next 24 hours. I would like to see that the patient can keep down food without nausea and vomiting, and her abdominal pain tapers off. Follow up with GI. The patient is seen by ID. Upon discharge, we will continue to monitor the patient in an outpatient setting. David Crump MD
--- NOTE | 2017-06-03 20:19 | PN ---
DATE: 06/03/2017 SUBJECTIVE: The patient is in bed, in no acute distress. PHYSICAL EXAMINATION: VITAL SIGNS: Temperature is 98, blood pressure is 140/80, respiratory rate of 20, heart rate of 61. HEENT: Unremarkable. NECK: Supple. LUNGS: Have decreased breath sounds. HEART: Normal S1 and S2. ABDOMEN: Soft. LABORATORY DATA: Reveals a white count of 4.6, hemoglobin of 9, platelets of 143. BUN of 52, creatinine of 13.5. ASSESSMENT AND PLAN: This is a 56-year-old female, seen early this morning in 235, bed 2 with positive human immunodeficiency syndrome and acquired immunodeficiency syndrome, noncompliant with her human immunodeficiency syndrome medications, history of Clostridium difficile, diarrhea, history of left upper lobe healthcare-associated pneumonia, history of erosive gastritis, hypertension, chronic renal failure on hemodialysis. Recommend restarting her human immunodeficiency syndrome medications and pneumocystis jiroveci pneumonia prophylaxis and possible discharge. The patient is strongly advised to follow up in the office. Meliton Rodriguez MD
== END 2017-06-03 16:28 | disposition home or self-care (01) | DRG 391 ==
LOC: ED 14:27 → ERH 17:50 → 2A 20:06 → OBSVTOIN 06-01 09:49
PROVIDERS: ADMIT Internal Medicine; ATTEND Internal Medicine
PROC: 5A1D70Z Performance of Urinary Filtration, Intermittent, Less than 6 Hours Per Day (ICD-10-PCS; principal; 2017-06-03)
DX: K59.03 Drug induced constipation (principal); B20 Human immunodeficiency virus [HIV] disease; I13.11 Hypertensive heart and chronic kidney disease without heart failure, with stage 5 chronic kidney disease, or end stage renal disease; K31.84 Gastroparesis; E87.5 Hyperkalemia; N18.6 End stage renal disease; N25.81 Secondary hyperparathyroidism of renal origin; K29.60 Other gastritis without bleeding; I25.10 Atherosclerotic heart disease of native coronary artery without angina pectoris; D53.9 Nutritional anemia, unspecified; E03.9 Hypothyroidism, unspecified; G89.29 Other chronic pain; R10.13 Epigastric pain; D63.1 Anemia in chronic kidney disease; Z76.5 Malingerer [conscious simulation]; Z99.2 Dependence on renal dialysis; I25.2 Old myocardial infarction; Z87.01 Personal history of pneumonia (recurrent); Z91.14 Patient's other noncompliance with medication regimen; Z95.5 Presence of coronary angioplasty implant and graft

== ENCOUNTER 2017-06-09 21:38 | Emergency (ER) | payer OTHER, MEDICARE ==
[2017-06-09 21:40] VITALS: BMI 22.4
--- NOTE | 2017-06-09 22:29 | ED PDOC ---
Arrival/HPI - General Chief Complaint: Chest Pain Time Seen by Provider: 06/09/17 21:59 Historian: Patient - History of Present Illness Narrative History of Present Illness (Text): 06/09/17 22:30 A 56 year old female, whose past medical history includes OK x4, CAD, stent placement, anemia, renal dysfunction (dialysis , , Fri), HIV, and hypothyroidism, presents to the emergency department complaining of chest pain, left arm pain and numbness and left jaw pain. Patient pain developed as she was driving home from meeting, and couldn't drive anymore due to left arm numbness/ pain. Patient notes she feels like someone "popped her". Patient denies any other complaints at this time. As per triage, patient stopped taking all of medications two months ago. 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 Past Medical History - Provider Review Nursing Documentation Reviewed: Yes - Infectious Disease Hx of Infectious Diseases: None - Tetanus Immunization Tetanus Immunization: Unknown - Cardiac Hx Cardiac Disorders: Yes (CAD, Mi, stents) Hx OK: Yes (3) Hx Hypertension: Yes - Pulmonary Hx Respiratory Disorders: No - Neurological Hx Neurological Disorder: Yes Hx Migraine: Yes - HEENT Hx HEENT Disorder: No - Renal Hx Renal Disorder: Yes Hx Dialysis: Yes () Date of Last Dialysis Treatment: 05/31/17 - Endocrine/Metabolic Hx Endocrine Disorders: Yes Hx Hypothyroidism: Yes - Hematological/Oncological Hx Blood Disorders: Yes (blood transfusion) Hx Anemia: Yes - Integumentary Hx Dermatological Disorder: Yes (generalized body itch on and off) - Musculoskeletal/Rheumatological Hx Falls: No - Gastrointestinal Hx Gastrointestinal Disorders: Yes (peptic ulcer) Hx Gall Bladder Disease: Yes Other/Comment: esophageal ulcer, hx c dif 05/08/16 - Genitourinary/Gynecological Hx Genitourinary Disorders: (esrd, hd renal ventures m w ) Hx Hematuria: Yes Hx Urinary Tract Infection: Yes - Psychiatric Hx Anxiety: Yes Hx Depression: Yes Hx Emotional Abuse: No Hx Physical Abuse: No Hx Substance Use: No (Used 25 Years Ago) - Surgical History Hx Appendectomy: Yes Hx Cardiac Catheterization: Yes Hx Section: Yes Hx Cholecystectomy: Yes Hx Coronary Stent: Yes Other/Comment: x4, excision bartholin cyst, right chest udall in and out, d&c, insertion and removal of peritoneal dialysis cyst, renal bx, left av shunt, mrcp - Anesthesia Hx Anesthesia: Yes Hx Anesthesia Reactions: No Hx Malignant Hyperthermia: No - Suicidal Assessment Feels Threatened In Home Enviroment: No Family/Social History - Physician Review Nursing Documentation Reviewed: Yes Family/Social History: No Known Family HX Smoking Status: Never Smoked Hx Alcohol Use: No Hx Substance Use: No (Used 25 Years Ago) Hx Substance Use Treatment: No Allergies/Home Meds Allergies/Adverse Reactions: Allergies MAVIS Inhibitors Allergy (Verified 01/23/17 11:59) SWELLING Home Medications: Home Meds Medication Instructions Recorded Confirmed Metoprolol Tartrate [Lopressor] 50 mg PO BID 08/19/16 06/09/17 Pantoprazole [Protonix EC Tab] 40 mg PO BID 08/19/16 06/09/17 Rosuvastatin Calcium [Crestor] 20 mg PO HS 08/19/16 06/09/17 Calcium Acetate [Phoslo] 667 mg PO TID 08/28/16 06/09/17 Dolutegravir Sodium [Tivicay] 50 mg PO DAILY 08/28/16 06/09/17 Metoclopramide [Reglan] 10 mg PO DAILY PRN 08/28/16 06/09/17 Atovaquone [Mepron] 750 mg PO BID 06/03/17 06/09/17 Polyethylene Glycol 3350 [Miralax] 17 gm PO TID 06/03/17 06/09/17 Review of Systems - Physician Review All systems were reviewed & negative as marked: Yes - Review of Systems Cardiovascular: Chest Pain Musculoskeletal: Other (left arm pain and numbness; left jaw pain) Physical Exam Vital Signs Reviewed: Yes Vital Signs Pulse Resp BP Pulse Ox 06/09/17 23:05 91 H 142/80 06/09/17 22:59 90 16 142/80 98 - Systems Exam Head: Present: Atraumatic, Normocephalic Pupils: Present: PERRL Extroacular Muscles: Present: EOMI Conjunctiva: Present: Normal Mouth: Present: Moist Mucous Membranes Neck: Present: Normal Range of Motion Respiratory/Chest: Present: Clear to Auscultation, Good Air Exchange. No: Respiratory Distress, Accessory Muscle Use Cardiovascular: Present: Regular Rate and Rhythm, Normal S1, S2. No: Murmurs Abdomen: Present: Normal Bowel Sounds. No: Tenderness, Distention, Peritoneal Signs Back: Present: Normal Inspection Upper Extremity: Present: Normal Inspection. No: Cyanosis, Edema Lower Extremity: Present: Normal Inspection. No: Edema Neurological: Present: GCS=15, CN II-XII Intact, Speech Normal Skin: Present: Warm, Dry, Normal Color. No: Rashes Psychiatric: Present: Alert, Oriented x 3, Normal Insight, Normal Concentration Medical Decision Making ED Course and Treatment: Impression: A 56 year old female with chest pain, left arm pain and numbness and left jaw pain. Plan: -- EKG -- chest xray -- labs -- Aspirin, Nitroglycerin, Tylenol, Lopressor -- CT head -- Reassess and disposition Prior Visits: Notes and results from previous visits were reviewed. Patient was last seen in the emergency department on 05/31/17 for evaluation of epigastric discomfort radiating to left side of back. Progress Notes: EKG: Ordered, reviewed, and independently interpreted the EKG. Rate : 83 BPM Rhythm : NSR Interpretation : prolonged QT 06/09/17 22:26 Called to patient's bedside and patient feeling mouth is twisting. On physical exam, no real facial droop, no true asymmetry. 06/09/17 23:14 repeat EKG EKG: Ordered, reviewed, and independently interpreted the EKG. Rate : 85 BPM Rhythm : NSR Interpretation : prolonged QT 06/09/17 23:21 Chest xray: LVH, cardiomegaly, and some evidence of volume overload, as read by me. CT Head Without Intravenous Contrast IMPRESSION: 1. Nonspecific white matter changes. Acute infarction may be CT occult within first 24 hours. If a focal deficit persists, consider followup CT or MRI for further evaluation. 2. Incidental/non-acute findings are described above. Dictated and Authenticated by: Deshaun Horvath MD 06/09/2017 11:28 PM Eastern Time ([place] & [place]) 06/10/17 00:04 Demanding pain medications. Offered Toradol inj and tylenol, which she refused before. 06/10/17 00:[address] Rubalcava, who advised no narcotics to be given to patient and agrees for patient to be discharged home if all results are negative. - Lab Interpretations Lab Results: 06/09/17 22:30 06/09/17 22:30 Lab Results 06/09/17 22:30: Sodium 144, Potassium 4.5, Chloride 98, Carbon Dioxide 29, Anion Gap 22 H, BUN 46 H, Creatinine 12.2 H*, Est GFR ( Amer) 4, Est GFR (Non-Af Amer) 3, Random Glucose 89, Calcium 8.4, Total Bilirubin 0.7, AST 36, ALT 29, Alkaline Phosphatase 64, Lactate Dehydrogenase 454, Total Creatine Kinase 52, Troponin I 0.04 D, Total Protein 8.5 H, Albumin 4.0, Globulin 4.5, Albumin/Globulin Ratio 0.9 L 06/09/17 22:30: PT 12.4, INR 1.09 H 06/09/17 22:30: WBC 3.9 L, RBC 2.64 L, Hgb 8.9 L, Hct 29.1 L, MCV 110.2 H, MCH 33.7, MCHC 30.6 L, RDW 14.3, Plt Count 133, MPV 10.4, Gran % 48.7 L, Lymph % ( Auto) 34.3, Bertie % (Auto) 15.7 H, Eos % (Auto) 1.0 L, Baso % (Auto) 0.3, Gran # 1.89, Lymph # (Auto) 1.3, Bertie # (Auto) 0.6, Eos # (Auto) 0.0, Baso # (Auto) 0.01 I have reviewed the lab results: Yes - RAD Interpretation Radiology Orders: 06/09/17 22:01 CHEST ONE VIEW [RAD] Stat 06/09/17 22:29 HEAD W/O CONTRAST [CT] Stat - EKG Interpretation Interpreted by ED Physician: Yes Type: 12 lead EKG - Medication Orders Current Medication Orders: Discontinued Medications Acetaminophen (Tylenol 325mg Tab) 975 mg PO STAT STA Stop: 06/09/17 22:14 Last Admin: 06/09/17 23:03 Dose: Not Given Non-Admin Reason: Patient Refused Aspirin (Aspirin Chewable) 324 mg PO STAT STA Stop: 06/09/17 22:15 Last Admin: 06/09/17 22:50 Dose: 324 mg Ketorolac Tromethamine (Toradol) 30 mg IVP STAT STA Stop: 06/10/17 00:06 Last Admin: 06/10/17 00:37 Dose: 30 mg MAR Pain Assessment Document 06/10/17 00:37 AB (Rec: 06/10/17 00:39 AB [id number]) Pain Reassessment Is this a pain reassessment? Yes Sleep Is patient sleeping during reassessment? No Presence of Pain Presence of Pain Yes Pain Scale Used Pain Scale Used Numeric Location Upper or Lower Upper Pain Location Body Scale Operator Chest Description Description Constant Intensity of Pain at present 5 Pain Behavior Irritability Alleviating Factors/Management Medication Techniques Alleviating Factors Medication IVP Administration Document 06/10/17 00:37 AB (Rec: 06/10/17 00:39 AB [id number]) Charges for Administration # of IVP Administrations 1 Metoprolol Tartrate (Lopressor) 12.5 mg PO STAT STA Stop: 06/09/17 22:15 Last Admin: 06/09/17 23:05 Dose: 12.5 mg MAR Pulse and Blood Pressure Document 06/09/17 23:05 NV (Rec: 06/09/17 23:06 [id number]) Pulse Pulse Rate (60-90) 91 Blood Pressure Blood Pressure (100/60-150/90) 142/80 Nitroglycerin (Nitrostat Sl Tab) 0.4 mg SL STAT STA Stop: 06/09/17 22:14 Last Admin: 06/09/17 22:50 Dose: 0.4 mg Nitroglycerin (Nitrostat Sl Tab) 0.4 mg SL STAT STA Stop: 06/09/17 22:15 Last Admin: 06/09/17 23:03 Dose: 0.4 mg Nitroglycerin (Nitrostat Sl Tab) 0.4 mg SL STAT STA Stop: 06/09/17 22:16 Last Admin: 06/09/17 23:13 Dose: 0.4 mg - PA / OXYGEN THERAPY TECHNICIAN / Resident Statement MD/DO has reviewed & agrees with the documentation as recorded. - Scribe Statement The provider has reviewed the documentation as recorded by the Yanet Maldonado Provider Scribe Attestation: All medical record entries made by the Scribe were at my direction and personally dictated by me. I have reviewed the chart and agree that the record accurately reflects my personal performance of the history, physical exam, medical decision making, and the department course for this patient. I have also personally directed, reviewed, and agree with the discharge instructions and disposition. Disposition/Present on Arrival - Present on Arrival Any Indicators Present on Arrival: No History of DVT/PE: No History of Uncontrolled Diabetes: No Urinary Catheter: No History of Decub. Ulcer: No History Surgical Site Infection Following: None - Disposition Have Diagnosis and Disposition been Completed?: Yes Diagnosis: Renal failure, Chest pain, atypical Disposition: HOME/ ROUTINE Disposition Time: 00:40 Patient Plan: Discharge Condition: GOOD Discharge Instructions (ExitCare): Chest Pain (ED) Additional Instructions: Yoseph Tavares that you are not feeling well. I spoke with your doctor and we reviewed all your test results. He actually saw you before he left the hospital tonight. We both feel you should go home. He is encouraging you to meat pickler the medicines he prescribed for you when you left the hospital last week. Go to dialysis in tomorrow and see him in the office for follow up. Remy- Dr. Manjinder Peralta Referrals: Ranjith Rubalcava MD [Primary Care Provider] - Follow up with primary Forms: [employer] (Czech)
[2017-06-09 22:44] LABS: BASO # 0.01 K/mm3 (0.0-2.0); BASO % 0.3 % (0.0-3.0); GRAN # 1.89 (1.4-6.5); GRAN % 48.7 % (50.0-68.0); HEMOGLOBIN 8.9 g/dL (12.0-16.0); LYMPH # 1.3 (1.2-3.4); LYMPH % 34.3 % (22.0-35.0); MEAN CELL VOLUME 110.2 fl (80.0-105.0); MEAN CORPUSCULAR HEMOGLOBIN 33.7 pg (25.0-35.0); MEAN CORPUSCULAR HGB CONC 30.6 g/dl (31.0-37.0); MEAN PLATELET VOLUME 10.4 fl (7.0-11.0); MONO # 0.6 (0.1-0.6); MONO % 15.7 % (1.0-6.0); RBC 2.64 10^6/uL (3.5-6.1); RED CELL DISTRIBUTION WIDTH 14.3 % (11.5-14.5); WHITE BLOOD COUNT 3.9 10^3/ul (4.5-11.0)
[2017-06-09 22:56] LABS: ALB/GLOB RATIO 0.9 (1.1-1.8); CALCIUM 8.4 mg/dL (8.4-10.5)
[2017-06-09 22:58] LABS: INR 1.09 (0.93-1.08); PROTHROMBIN TIME 12.4 SECONDS (9.4-12.5)
[2017-06-09 23:04] LABS: TROPONIN I 0.04 ng/mL
--- NOTE | 2017-06-09 23:29 | CT ---
EXAM: CT Head Without Intravenous Contrast CLINICAL HISTORY: 56 years old, female; Signs and symptoms; Weakness, facial; Additional info: L sided facial ? numbness? TECHNIQUE: Axial computed tomography images of the head/brain without intravenous contrast. All CT scans at this facility use one or more dose reduction techniques, viz.: automated exposure control; ma/kV adjustment per patient size (including targeted exams where dose is matched to indication; i.e. head); or iterative reconstruction technique. Coronal and sagittal reformatted images were created and reviewed. COMPARISON: CT - HEAD W/O CONTRAST 2016-02-20 15:19 FINDINGS: Brain: Mild atrophy. No intracranial hemorrhage. No mass. Minimal decreased attenuation within periventricular white matter. Probable chronic lacunar infarcts about basal ganglia. No definite edema. Ventricles: No hydrocephalus. Bones/joints: No acute fracture. Soft tissues: Unremarkable. Vasculature: Atherosclerotic disease of intracranial arteries. Sinuses: Minimal mucosal thickening of maxillary sinuses. Mastoid air cells: No mastoid effusion. Orbits: Unremarkable as visualized. IMPRESSION: 1. Nonspecific white matter changes. Acute infarction may be CT occult within first 24 hours. If a focal deficit persists, consider followup CT or MRI for further evaluation. 2. Incidental/non-acute findings are described above.
[2017-06-10 00:40] VITALS: TEMP 98.7
[2017-06-10 01:01] VITALS: BP 131/83; PULSE 79; RESP 19; O2SAT 100
--- NOTE | 2017-06-10 08:38 | RAD ---
PROCEDURE: CHEST RADIOGRAPH, 1 VIEW HISTORY: chest pain COMPARISON: 05/31/2017 FINDINGS: LUNGS: Clear. PLEURA: No pneumothorax or pleural fluid seen. CARDIOVASCULAR: Mild cardiomegaly OSSEOUS STRUCTURES: No significant abnormalities. VISUALIZED UPPER ABDOMEN: Normal. OTHER FINDINGS: None. IMPRESSION: No active disease.
--- NOTE | 2017-06-10 12:30 | CARD ---
APPROVED REPORT EKG Measurement Heart [id number] <Conclusion> Normal sinus rhythm ST abnormality, possible digitalis effect Prolonged QT Abnormal ECG
--- NOTE | 2017-06-11 16:24 | CARD ---
APPROVED REPORT EKG Measurement Heart [id number] <Conclusion> Unusual P axis, possible ectopic atrial rhythm Low voltage QRS Inferior infarct, age undetermined Prolonged QT Abnormal ECG
== END 2017-06-10 00:56 | disposition home or self-care (01) ==
LOC: ED 21:38
DX: R07.89 Other chest pain (principal); N19 Unspecified kidney failure; E03.9 Hypothyroidism, unspecified; I12.9 Hypertensive chronic kidney disease with stage 1 through stage 4 chronic kidney disease, or unspecified chronic kidney disease; N18.9 Chronic kidney disease, unspecified; Z99.2 Dependence on renal dialysis; I25.10 Atherosclerotic heart disease of native coronary artery without angina pectoris; I25.2 Old myocardial infarction
CPT/HCPCS: 70450; 71045; 80053; 82550; 83615; 84484; 85025; 85610; 93005; 96374; 99283; J1885

== ENCOUNTER 2017-06-24 21:22 | Inpatient (IN) | payer MEDICARE, OTHER ==
[2017-06-24] MEDS ORDERED: Sodium Chloride 0.9% 500 ML IV STA (21:49)
[2017-06-24] MEDS ORDERED: Morphine 4 mg/ml ISec IVP STA (21:49)
--- NOTE | 2017-06-24 21:53 | ED PDOC ---
Arrival/HPI - General Chief Complaint: Chest Pain Time Seen by Provider: 06/24/17 21:40 Historian: Patient - History of Present Illness Narrative History of Present Illness (Text): 06/24/17 21:50 pt p/w + 3 days onset of waxing and waning substernal chest pain/epigastic pain ; non-radiating, severe pain, at most pain is 10/10 pain; pt states + multiple episodes of nausea/vomiting, at least 4 episodes daily with bile like vomitus; NON-bloody; + fever/chills/sweats, mild sob, no palpitations; no numbness/ tingling, no bowel changes, last BM was today/this morning, non bloody; no urinary changes; pt had stopped her Viral therapy x 2 months; pt was seen by PCP last week for check up; pt states no LOC, + weakness/fatigued, mild lightheadedness; Poor appetite pt denied other complaints pt denied fall/trauma/travel/sick contact pt is here for further eval. pt does not know her last viral load, CD 4 count PCP: Dr Rubalcava GI: Dr kerr Cards: Marc ID: [id number] 06/24/17 22:14 Time/Duration: < week (3 days) Symptom Onset: Sudden Symptom Course: Worsening Quality: Stabbing, Throbbing Severity Level: 10, Severe Activities at Onset: Rest Context: Home Past Medical History - Provider Review Nursing Documentation Reviewed: Yes - Travel History Have you recently traveled outside [place] w/in the past 3 mons?: No - Past History Past History: No Previous - Infectious Disease Hx of Infectious Diseases: None - Tetanus Immunization Tetanus Immunization: Unknown - Cardiac Hx Cardiac Disorders: Yes (CAD, Mi, stents) Hx [place]: Yes (3) Hx Hypertension: Yes - Pulmonary Hx Respiratory Disorders: No - Neurological Hx Neurological Disorder: Yes Hx Migraine: Yes - HEENT Hx HEENT Disorder: No - Renal Hx Renal Disorder: Yes Hx Dialysis: Yes () Date of Last Dialysis Treatment: 05/31/17 - Endocrine/Metabolic Hx Endocrine Disorders: Yes Hx Hypothyroidism: Yes - Hematological/Oncological Hx Blood Disorders: Yes (blood transfusion) Hx Anemia: Yes - Integumentary Hx Dermatological Disorder: Yes (generalized body itch on and off) - Musculoskeletal/Rheumatological Hx Falls: No - Gastrointestinal Hx Gastrointestinal Disorders: Yes (peptic ulcer) Hx Gall Bladder Disease: Yes Other/Comment: esophageal ulcer, hx c dif 05/08/16 - Genitourinary/Gynecological Hx Genitourinary Disorders: (esrd, hd renal ventures m w f) Hx Hematuria: Yes Hx Urinary Tract Infection: Yes - Psychiatric Hx Anxiety: Yes Hx Depression: Yes Hx Emotional Abuse: No Hx Physical Abuse: No Hx Substance Use: No (Used 25 Years Ago) - Surgical History Hx Appendectomy: Yes Hx Cardiac Catheterization: Yes Hx Section: Yes Hx Cholecystectomy: Yes Hx Coronary Stent: Yes Other/Comment: x4, excision bartholin cyst, right chest udall in and out, d&c, insertion and removal of peritoneal dialysis cyst, renal bx, left av shunt, mrcp - Anesthesia Hx Anesthesia: Yes Hx Anesthesia Reactions: No Hx Malignant Hyperthermia: No - Suicidal Assessment Feels Threatened In Home Enviroment: No Family/Social History - Physician Review Nursing Documentation Reviewed: Yes Family/Social History: No Known Family HX Smoking Status: Never Smoked Hx Alcohol Use: No Hx Substance Use: No (Used 25 Years Ago) Hx Substance Use Treatment: No Allergies/Home Meds Allergies/Adverse Reactions: Allergies MAVIS Inhibitors Allergy (Verified 01/23/17 11:59) SWELLING Home Medications: Home Meds Medication Instructions Recorded Confirmed Metoprolol Tartrate [Lopressor] 50 mg PO BID 08/19/16 06/09/17 Pantoprazole [Protonix EC Tab] 40 mg PO BID 08/19/16 06/09/17 Rosuvastatin Calcium [Crestor] 20 mg PO HS 08/19/16 06/09/17 Calcium Acetate [Phoslo] 667 mg PO TID 08/28/16 06/09/17 Dolutegravir Sodium [Tivicay] 50 mg PO DAILY 08/28/16 06/09/17 Metoclopramide [Reglan] 10 mg PO DAILY PRN 08/28/16 06/09/17 Atovaquone [Mepron] 750 mg PO BID 06/03/17 06/09/17 Polyethylene Glycol 3350 [Miralax] 17 gm PO TID 06/03/17 06/09/17 Review of Systems - Review of Systems Constitutional: Fatigue Respiratory: SOB Cardiovascular: Chest Pain Gastrointestinal: Abdominal Pain, Nausea, Vomiting. absent: Constipation, Diarrhea Genitourinary Female: Normal Musculoskeletal: Normal Skin: Normal Neurological: Normal Endocrine: Normal Hemo/Lymphatic: Normal Psychiatric: Normal Physical Exam Vital Signs Reviewed: Yes Vital Signs Temp Pulse Resp BP Pulse Ox 06/24/17 21:57 18 98 06/24/17 21:56 101.0 F H 102 H 18 140/76 91 L Temperature: Febrile Blood Pressure: Normal Pulse: Tachycardic Respiratory Rate: Normal Appearance: Positive for: Other (uncomfortable, alert/awake, GCS = 15, oriented x 3, moderate distress due to pain, resting in bed) Pain Distress: Moderate Mental Status: Positive for: Alert and Oriented X 3 - Systems Exam Head: Present: Atraumatic, Normocephalic Pupils: Present: PERRL, Other (visual field intact b/l, no nystagmus, no photophobia, sclera anicteric) Extroacular Muscles: Present: EOMI Conjunctiva: Present: Normal, Other (mild pallor, no icteric noted) Ears: Present: Normal Mouth: Present: Normal Teeth, Other (mild dry oral mucosa; uvula/tongue are midline, no exudate/lesions) Pharnyx: Present: Normal Nose (External): Present: Atraumatic Nose (Internal): Present: Normal Inspection Neck: Present: Normal Range of Motion, Trachea Midline. No: MIDLINE TENDERNESS Respiratory/Chest: Present: Clear to Auscultation, Good Air Exchange, Other ( CTA b/l, no w/r/r, no accessory muscle use noted, no tachypenia) Cardiovascular: Present: Regular Rate and Rhythm, Normal S1, S2, Tachycardic. No: Murmurs Abdomen: Present: Normal Bowel Sounds, Other (+ substernal/epigastric tenderness , no jordan's sign, no mcburney's point tenderness, well nourished female, no masses/rebound/guarding/rigidity) Back: Present: Normal Inspection. No: Midline Tenderness Upper Extremity: Present: Normal Inspection, Normal ROM, NORMAL PULSES, Neurovascularly Intact, Capillary Refill < 2s Lower Extremity: Present: Normal Inspection, NORMAL PULSES, Neurovascularly Intact Neurological: Present: GCS=15, CN II-XII Intact, Speech Normal, Other (CNII-XII WNL, no facial asymmetries, no slurr speech, oriented x 3, NIH stroke scale ~ 0) Skin: Present: Warm, Other (dry, cap refill ~ 1 sec, no ulcerations, no petechiae, mild pallor) Psychiatric: Present: Alert Medical Decision Making ED Course and Treatment: 06/24/17 2200 Impression: epigastric/chest pain i have consider all the differential diagnosis regarding pt's chief medical complaints/clinical findings, including but are not limited to: epigastric/ chest pain A/P: epigastric/chest pain - labs - iv - xray - cultures - ua - observe - supportive care 06/25/17 00:00 pt felt some improvement pt continues to have mid epigastric burning/pain pt is made aware of her medical results agrees with admission I spoke to Dr Rubalcava, expressed concern for pt's narcotic predisposition, does not want patient to have any pain meds; would like abx/tamiflu, and would like resident to be contacted, will admit patient I spoke to med resident, made aware, will see patient Re-evaluation Time: 22:42 - Lab Interpretations Lab Results: 06/24/17 22:20 06/24/17 22:20 Lab Results 06/24/17 22:20: pO2 54, VBG pH 7.49 H, VBG pCO2 53.0, VBG HCO3 40.4 H, VBG Total CO2 42.0 H, VBG O2 Sat (Calc) 92.1 H, VBG Base Excess 14.6 H, VBG Potassium 4.6, Sodium 139.0, Chloride 100.0, Glucose 112 H, Lactate 0.9, FiO2 21.0, Venous Blood Potassium 4.6 06/24/17 22:20: Sodium 143, Chloride 94 L, Potassium 4.4, Carbon Dioxide 35 H, Anion Gap 19, BUN 24 H, Creatinine 6.7 H, Est GFR ( Amer) 8, Est GFR (Non -Af Amer) 6, Random Glucose 108, Calcium 9.4, Total Bilirubin 0.7, AST 50 H D, ALT 19, Alkaline Phosphatase 77, Lactate Dehydrogenase 610, Total Creatine Kinase 40, Troponin I 0.04, Total Protein 8.5 H, Albumin 4.0, Globulin 4.6, Albumin/Globulin Ratio 0.9 L, Lipase 60 06/24/17 22:20: PT 12.0, INR 1.05, APTT 29.7 06/24/17 22:20: WBC 7.0 D, RBC 2.62 L, Hgb 8.5 L, Hct 28.5 L, MCV 108.8 H, MCH 32.4, MCHC 29.8 L, RDW 14.4, Plt Count 112 L, MPV 10.5, Gran % 81.4 H, Lymph % ( Auto) 10.4 L, Hancock % (Auto) 7.6 H, Eos % (Auto) 0.6 L, Baso % (Auto) 0.0, Gran # 5.66, Lymph # (Auto) 0.7 L, Hancock # (Auto) 0.5, Eos # (Auto) 0.0, Baso # (Auto ) 0.00 I have reviewed the lab results: Yes Interpretation: Abnormal lab values (esrd, low H/H) - RAD Interpretation Narrative RAD Interpretations (Text): 06/25/17 00:01 NAD, no free air Radiology Orders: 06/24/17 21:51 CHEST PORTABLE [RAD] Stat ABDOMEN PORTABLE 1 VIEW [RAD] Stat 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 [employer]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: ED Physician - EKG Interpretation EKG Interpretation (Text): 06/24/17 22:43 Sinus tach at 105 bpm, normal axis, poor baseline, no ectopy, inverted T in leads V1-3, non-specific st-t changes, ABNL EKG; unchanged compare with old ekg 06/2017 Interpreted by ED Physician: Yes Type: 12 lead EKG Comparison: Similar to previous EKG - Medication Orders Current Medication Orders: Piperacillin Sod/Tazobactam Sod (Zosyn 3.375 In Ns 100ml) 100 mls @ 200 mls/hr IVPB STAT STA PRN Reason: Protocol Stop: 06/25/17 00:22 Oseltamivir Phosphate (Tamiflu Cap) 75 mg PO ONCE ONE PRN Reason: Protocol Stop: 06/25/17 23:54 Discontinued Medications Acetaminophen (Tylenol 325mg Tab) 650 mg PO STAT STA Stop: 06/24/17 22:16 Last Admin: 06/24/17 22:39 Dose: 650 mg Diphenhydramine HCl (Benadryl) 25 mg IVP STAT STA Stop: 06/24/17 22:32 Last Admin: 06/24/17 22:39 Dose: 25 mg IVP Administration Document 06/24/17 22:39 HI (Rec: 06/24/17 22:39 [place] [id number]) Charges for Administration # of IVP Administrations 1 Famotidine (Pepcid) 20 mg IVP STAT STA Stop: 06/24/17 21:50 Last Admin: 06/24/17 22:36 Dose: 20 mg IVP Administration Document 06/24/17 22:36 HI (Rec: 06/24/17 22:36 [place] [id number]) Charges for Administration # of IVP Administrations 1 Sodium Chloride (Sodium Chloride 0.9%) 500 mls @ 1,000 mls/hr IV .Q30M STA Stop: 06/24/17 22:18 Last Admin: 06/24/17 22:35 Dose: 1,000 mls/hr eMAR Start Stop Document 06/24/17 22:35 HI (Rec: 06/24/17 22:35 [place] [id number]) Intravenous Solution Start Date 06/24/17 Start Time 22:35 Morphine Sulfate (Morphine) 4 mg IVP STAT STA Stop: 06/24/17 21:50 Last Admin: 06/24/17 22:35 Dose: 4 mg MAR Pain Assessment Document 06/24/17 22:35 HI (Rec: 06/24/17 22:36 [place] [id number]) Pain Reassessment Is this a pain reassessment? No Sleep Is patient sleeping during reassessment? No Presence of Pain Presence of Pain Yes Pain Scale Used Pain Scale Used Numeric Location Pain Location Body Site Chest Description Description Stabbing Intensity of Pain at present 10 Pain Behavior Moaning Rubbing Site Facial Grimacing IVP Administration Document 06/24/17 22:35 HI (Rec: 06/24/17 22:36 [place] [id number]) Charges for Administration # of IVP Administrations 1 Ondansetron HCl (Zofran Inj) 4 mg IVP STAT STA Stop: 06/24/17 21:50 Last Admin: 06/24/17 22:36 Dose: 4 mg IVP Administration Document 06/24/17 22:36 HI (Rec: 06/24/17 22:36 [place] [id number]) Charges for Administration # of IVP Administrations 1 Disposition/Present on Arrival - Present on Arrival Any Indicators Present on Arrival: No History of DVT/PE: No History of Uncontrolled Diabetes: No Urinary Catheter: No History of Decub. Ulcer: No History Surgical Site Infection Following: None - Disposition Have Diagnosis and Disposition been Completed?: Yes Diagnosis: Fever, Epigastric pain, Chest pain, Non compliance w medication regimen Disposition: HOSPITALIZED Disposition Time: 00:00 Patient Plan: Admission Condition: STABLE Discharge Instructions (ExitCare): Chest Pain (ED) Referrals: Ranjith Rubalcava MD [Primary Care Provider] - Follow up with primary Forms: Fon (Polish)
[2017-06-24] MEDS ORDERED: DiphenhydrAMINE 50 mg/ml Inj ONE (22:29)
[2017-06-24] MEDS ORDERED: DiphenhydrAMINE 50 mg/ml Inj IVP STA (22:31)
[2017-06-24 22:37] LABS: VENOUS BLOOD GAS BASE EXCESS 14.6 mmol/L (0.0-2.0); VENOUS BLOOD GAS PO2 54 mm/Hg (30-55); VENOUS BLOOD PH 7.49 (7.32-7.43)
[2017-06-24 22:49] LABS: EOS % 0.6 % (1.5-5.0); GRAN # 5.66 (1.4-6.5); GRAN % 81.4 % (50.0-68.0); HEMOGLOBIN 8.5 g/dL (12.0-16.0); LYMPH # 0.7 (1.2-3.4); LYMPH % 10.4 % (22.0-35.0); MEAN CELL VOLUME 108.8 fl (80.0-105.0); MEAN CORPUSCULAR HEMOGLOBIN 32.4 pg (25.0-35.0); MEAN CORPUSCULAR HGB CONC 29.8 g/dl (31.0-37.0); MEAN PLATELET VOLUME 10.5 fl (7.0-11.0); MONO # 0.5 (0.1-0.6); MONO % 7.6 % (1.0-6.0); RBC 2.62 10^6/uL (3.5-6.1); RED CELL DISTRIBUTION WIDTH 14.4 % (11.5-14.5)
[2017-06-24 22:50] LABS: ALB/GLOB RATIO 0.9 (1.1-1.8); CALCIUM 9.4 mg/dL (8.4-10.5)
[2017-06-24 22:53] LABS: INR 1.05 (0.93-1.08); PARTIAL THROMBOPLASTIN TIME 29.7 Seconds (25.1-36.5)
[2017-06-24 22:57] LABS: TROPONIN I 0.04 ng/mL
[2017-06-24] MEDS ORDERED: Piperacillin/Tazobact 2.25gm 2.25 GM/100 ML BAG IVPB STA (23:53)
--- NOTE | 2017-06-25 01:39 | CP.PCM.HP ---
<Norbert Sanders - Last Filed: 06/25/17 03:19> History of Present Illness - History of Present Illness History of Present Illness: This patient is a 57 year old female with a PMHx of HIV, [place], CAD w/ stent placement, Medical non-compliance, ESRD on dialysis (, Fri), and chronic anemia who presents complaining of reproducible, sharp, 10/10, chest pain that radiates to her back x 3 days. Patient states the pain is exacerbated by laying flat, walking, talking, breathing and swallowing. It is relieved by sitting up. Patient denies using any modalities to treat the chest pain; but she did state that the toradol given by her PMD has not helped. Patient presented to the ED with a fever. She also had an episode of Non-bloody vomiting yesterday. Patient states she does not urinate (ESRD). Patient is showing some med-seeking behavior. ROS POSITIVES: Orthopnea, night sweats, headache, lightheadness, difficulty breathing, abdominal discomfort, nausea, vomiting, fevers, chills. NEGATIVES: Dyspnea on exertion, SOB, palpitations, changes in bowel habits, long periods of immobility or sick contacts. PMHx: HIV, [place], CAD with Stents, Medical non-complaince, ESRD (, , Fri), chronic anemia PSHx: x 4, cholecystectomy, bartholin cyst removal Allergies: Jamir I Social: 1PPD for 20 years, Quit 20 years ago. Denies Alcohol or illicit drug use Hos: Admitted for epigastric pain 3 weeks ago FamHx: Multiple family members with Heart Disease and Diabetes Meds: Reviewed PMD: Dr. Rubalcava. Present on Admission - Present on Admission Any Indicators Present on Admission: No Review of Systems - Review of Systems Review of Systems: As per HPI Past Patient History - Infectious Disease Hx of Infectious Diseases: None - Tetanus Immunizations Tetanus Immunization: Unknown - Past Medical History & Family History Past Medical History?: Yes - Past Social History Smoking Status: Never Smoked - CARDIAC Hx Cardiac Disorders: Yes (CAD, Mi, stents) Hx Heart Attack: Yes (3) Hx Hypertension: Yes - PULMONARY Hx Respiratory Disorders: No - NEUROLOGICAL Hx Neurological Disorder: Yes Hx Migraine: Yes - HEENT Hx HEENT Problems: No - RENAL Hx Chronic Kidney Disease: Yes Hx Dialysis: Yes () Date of Last Dialysis Treatment: 05/31/17 - ENDOCRINE/METABOLIC Hx Endocrine Disorders: Yes Hx Hypothyroidism: Yes - HEMATOLOGICAL/ONCOLOGICAL Hx Blood Disorders: Yes (blood transfusion) Hx Anemia: Yes - INTEGUMENTARY Hx Dermatological Problems: Yes (generalized body itch on and off) - MUSCULOSKELETAL/RHEUMATOLOGICAL Hx Falls: No - GASTROINTESTINAL Hx Gastrointestinal Disorders: Yes (peptic ulcer) Hx Gall Bladder Disease: Yes Other/Comment: esophageal ulcer, hx c dif 05/08/16 - GENITOURINARY/GYNECOLOGICAL Hx Genitourinary Disorders: (esrd, hd renal ventures m w f) Hx Hematuria: Yes Hx Urinary Tract Infection: Yes - PSYCHIATRIC Hx Anxiety: Yes Hx Depression: Yes Hx Emotional Abuse: No Hx Physical Abuse: No Hx Substance Use: No (Used 25 Years Ago) - SURGICAL HISTORY Hx Appendectomy: Yes Hx Cardiac Catheterization: Yes Hx Section: Yes Hx Cholecystectomy: Yes Hx Coronary Stent: Yes Other/Comment: x4, excision bartholin cyst, right chest udall in and out, d&c, insertion and removal of peritoneal dialysis cyst, renal bx, left av shunt, mrcp - ANESTHESIA Hx Anesthesia: Yes Hx Anesthesia Reactions: No Hx Malignant Hyperthermia: No Meds Allergies/Adverse Reactions: Allergies Allergy/AdvReac Type Severity Reaction Status Date / Time JAMIR Inhibitors Allergy SWELLING Verified 06/25/17 03:17 Physical Exam - Constitutional Appears: Non-toxic, In Acute Distress, Chronically Ill - Head Exam Head Exam: ATRAUMATIC, NORMAL INSPECTION, NORMOCEPHALIC - Eye Exam Eye Exam: EOMI, Normal appearance - ENT Exam ENT Exam: Mucous Membranes Moist - Neck Exam Neck exam: Positive for: Normal Inspection - Respiratory Exam Respiratory Exam: Clear to Auscultation Bilateral. absent: Decreased Breath Sounds, Rales, Rhonchi, Wheezes - Cardiovascular Exam Cardiovascular Exam: RRR, +S1, +S2, Systolic Murmur. absent: JVD - GI/Abdominal Exam GI & Abdominal Exam: Normal Bowel Sounds, Soft, Tenderness (Epigastric ). absent: Distended, Guarding - Extremities Exam Extremities exam: Negative for: pedal edema - Neurological Exam Neurological exam: Alert, Oriented x3 - Psychiatric Exam Psychiatric exam: Anxious - Skin Skin Exam: Dry, Intact, Normal Color, Warm Results - Vital Signs Recent Vital Signs: Last Vital Signs Temp 101.0 F H 06/24/17 21:56 Pulse 102 H 06/24/17 21:56 Resp 18 06/24/17 21:57 BP 140/76 06/24/17 21:56 Pulse Ox 98 06/24/17 21:57 - Labs Result Diagrams: 06/24/17 22:20 06/24/17 22:20 Labs: Laboratory Results - last 24 hr 06/25/17 00:07 Influenza Typ A,B (EIA) Negative for flu a/b Assessment & Plan - Assessment and Plan (Free Text) Assessment: 57 year old female with a PMHx of HIV, [place], CAD w/ stent placement, Medical non- compliance, ESRD on dialysis (T, Th, Sat), and chronic anemia who presents complaining of reproducible, sharp, 10/10, chest pain that radiates to her back x 3 days. Plan: Chest Pain R/O ACS. DDx: Esophagitis, GERD, costochondritis, ACS EKG (Adm): Sinus tach at 105 bpm, normal axis, poor baseline, no ectopy, inverted T in leads V1-3, non-specific st-t changes, ABNL EKG; unchanged compare with old ekg Trop (Adm): NEGATIVE Serial EKG Serial Cardiac Enzymes Cardiology Consult (Tran) Pain Control: Tylenol PRN. Avoid narcotics. Cont. Home Lopressor Fever of Unknown Etiology Febrile in ED. Resolved with Tylenol Rapid Flu - NEGATIVE Blood Culture - F/U Zosyn Given in ED CXR: Pending Official Read ID Consult (Dr. Rodriguez) Repeat CXR in AM Tamiflu 75 BID Epigastric Pain Complains of Epigastric Pain to ED physician, and epigastric tenderness on exam. Abd X-ray - PENDING READ GI Consult (Dr. Snider) Reglan 10 IV Q6H Protonix IV 40 Daily Anemia Transfuse 1PRBC Hx of CAD Home Plavix Hx of Hypothyrodism Patient didn't mention history of Hypothyrodism Cont. Home Levothyroxine Consider TSH Hx of HIV Patient has been non-complaint with meds for 2 months up until last week Cont. Home medications. Hx of ESRD Cont. Home Medications Dialysis (T, Th, Sat) Proph Home Plavix/IV Protonix Patient discussed with Dr. Gini Sanders, PGY1 <Ranjith Rubalcava U - Last Filed: 06/27/17 13:40> Results - Vital Signs Recent Vital Signs: Last Vital Signs Temp 98.3 F 06/27/17 12:00 Pulse 72 06/27/17 12:00 Resp 20 06/27/17 12:00 BP 123/83 06/27/17 12:00 Pulse Ox 94 L 06/27/17 06:00 - Labs Result Diagrams: 06/26/17 11:30 06/26/17 11:30 Labs: Laboratory Results - last 24 hr 06/26/17 06/26/17 05:00 05:00 Erythropoietin 149.9 H Procalcitonin 6.79 H Attending/Attestation - Attestation I have personally seen and examined this patient.: Yes I have fully participated in the care of the patient.: Yes I have reviewed all pertinent clinical information: Yes Notes (Text): Please see/read my dictated notes.
[2017-06-25 03:57] VITALS: BMI 23.3
[2017-06-25 04:50] LABS: EOS % 0.4 % (1.5-5.0); GRAN # 3.22 (1.4-6.5); GRAN % 70.8 % (50.0-68.0); HEMOGLOBIN 7.8 g/dL (12.0-16.0); LYMPH # 0.9 (1.2-3.4); LYMPH % 20.7 % (22.0-35.0); MEAN CELL VOLUME 110.6 fl (80.0-105.0); MEAN CORPUSCULAR HEMOGLOBIN 33.1 pg (25.0-35.0); MEAN CORPUSCULAR HGB CONC 29.9 g/dl (31.0-37.0); MEAN PLATELET VOLUME 10.3 fl (7.0-11.0); MONO # 0.4 (0.1-0.6); MONO % 8.1 % (1.0-6.0); RBC 2.36 10^6/uL (3.5-6.1); RED CELL DISTRIBUTION WIDTH 14.7 % (11.5-14.5); WHITE BLOOD COUNT 4.6 10^3/ul (4.5-11.0)
[2017-06-25 05:13] LABS: ALB/GLOB RATIO 0.9 (1.1-1.8); ALBUMIN 3.8 g/dL (3.0-4.8); CALCIUM 8.8 mg/dL (8.4-10.5)
[2017-06-25] MEDS ORDERED: Vancomycin 1gm in NS 250ml 1 GM/250 ML BAG IVPB STA (06:34)
[2017-06-25] MEDS: Levothyroxine 25 MCG TAB PO SCH (07:06)
[2017-06-25 07:30] LABS: ALB/GLOB RATIO 0.9 (1.1-1.8); ALBUMIN 3.7 g/dL (3.0-4.8); BILIRUBIN,DIRECT 0.6 mg/dL (0.0-0.4); MAGNESIUM 1.8 mg/dL (1.7-2.2)
[2017-06-25 07:31] LABS: TROPONIN I 0.05 ng/mL
[2017-06-25] MEDS ORDERED: Levalbuterol 1.25 MG/3 ML Inhal Soln UD IH SCH (08:00)
[2017-06-25] MEDS ORDERED: Alum-Mag Hydrox-Simethicone Susp (30 mL) PO ONE (09:15)
--- NOTE | 2017-06-25 09:41 | RAD ---
HISTORY: r/o free air, severe epigastric pain COMPARISON: 06/09/2017 FINDINGS: LUNGS: No active pulmonary disease. PLEURA: No significant pleural effusion identified, no pneumothorax apparent. CARDIOVASCULAR: Mild cardiomegaly. Mild vascular congestion OSSEOUS STRUCTURES: No significant abnormalities. VISUALIZED UPPER ABDOMEN: Normal. OTHER FINDINGS: None. IMPRESSION: No active disease. No evidence of free air
[2017-06-25] MEDS: POLYETHYLENE GLYCOL 3350 17 GM/Dose PACKET PO SCH ×3 (09:44→18:42)
[2017-06-25] MEDS: Cefepime 1gm in NS 100ml 1 GM/100 ML BAG IVPB SCH (09:44)
[2017-06-25] MEDS: Atovaquone 750 mg/5 ml Susp UD PO SCH ×2 (09:44→18:42)
[2017-06-25] MEDS: Oseltamivir 6 MG/ML PO SCH (09:44)
--- NOTE | 2017-06-25 09:44 | RAD ---
PROCEDURE: CHEST RADIOGRAPH, 1 VIEW HISTORY: Chest Pain COMPARISON: 06/24/2017 FINDINGS: LUNGS: Clear. PLEURA: No pneumothorax or pleural fluid seen. CARDIOVASCULAR: Mild cardiomegaly OSSEOUS STRUCTURES: No significant abnormalities. VISUALIZED UPPER ABDOMEN: Normal. OTHER FINDINGS: None. IMPRESSION: No active disease.
[2017-06-25] MEDS ORDERED: DARUNAVIR 800 MG PO SCH (10:00)
--- NOTE | 2017-06-25 10:12 | RAD ---
HISTORY: severe epigastric pain COMPARISON: 02/28/2014 FINDINGS: BOWEL: Normal. No obstruction. No free air. BONES: Normal. OTHER FINDINGS: None. IMPRESSION: No active disease.
[2017-06-25] MEDS: Lidocaine 5% Patch TD SCH (11:57)
--- NOTE | 2017-06-25 12:05 | CP.PCM.CON ---
History of Present Illness - History of Present Illness History of Present Illness: 57 year old female with PMH of HIV and AIDS with last CD4 count 163 in 2015 , VL detectable, chronic renal failure on hemodialysis, coronary artery disease , history of UTI, history of esophageal ulcer, erosive gastritis, HTN, S/P cholecystectomy came in to [facility] complaining of chest pain which radiates to her back for the past 2-3 days. She also complains of some body aches and sore throat. She denies rhinorrhea, no cough, no SOB at rest, had an episode of fever in the ED, no abdominal pain, no diarrhea, no dysuria. She also complains of pain on swallowing, which she also feels in her chest area aside from the throat. Infectious diseases consult is requested to further evaluate and manage. Review of Systems - Review of Systems All systems: reviewed and no additional remarkable complaints except (as per HPI ) Past Patient History - Infectious Disease Hx of Infectious Diseases: None - Tetanus Immunizations Tetanus Immunization: Unknown - Past Medical History & Family History Past Medical History?: Yes - Past Social History Smoking Status: Never Smoked - CARDIAC Hx Cardiac Disorders: Yes (CAD, Mi, stents) Hx Heart Attack: Yes (3) Hx Hypertension: Yes - PULMONARY Hx Respiratory Disorders: No - NEUROLOGICAL Hx Neurological Disorder: Yes Hx Migraine: Yes - HEENT Hx HEENT Problems: No - RENAL Hx Chronic Kidney Disease: Yes Hx Dialysis: Yes (-Th-fri) Date of Last Dialysis Treatment: 05/31/17 - ENDOCRINE/METABOLIC Hx Endocrine Disorders: Yes Hx Hypothyroidism: Yes - HEMATOLOGICAL/ONCOLOGICAL Hx Blood Disorders: Yes (blood transfusion) Hx Anemia: Yes - INTEGUMENTARY Hx Dermatological Problems: Yes (generalized body itch on and off) - MUSCULOSKELETAL/RHEUMATOLOGICAL Hx Falls: No - GASTROINTESTINAL Hx Gastrointestinal Disorders: Yes (peptic ulcer) Hx Gall Bladder Disease: Yes Other/Comment: esophageal ulcer, hx c dif 05/08/16 - GENITOURINARY/GYNECOLOGICAL Hx Genitourinary Disorders: (esrd, hd renal ventures m w ) Hx Hematuria: Yes Hx Urinary Tract Infection: Yes - PSYCHIATRIC Hx Anxiety: Yes Hx Depression: Yes Hx Emotional Abuse: No Hx Physical Abuse: No Hx Substance Use: No (Used 25 Years Ago) - SURGICAL HISTORY Hx Appendectomy: Yes Hx Cardiac Catheterization: Yes Hx Section: Yes Hx Cholecystectomy: Yes Hx Coronary Stent: Yes Other/Comment: x4, excision bartholin cyst, right chest udall in and out, d&c, insertion and removal of peritoneal dialysis cyst, renal bx, left av shunt, mrcp - ANESTHESIA Hx Anesthesia: Yes Hx Anesthesia Reactions: No Hx Malignant Hyperthermia: No Meds Allergies/Adverse Reactions: Allergies Allergy/AdvReac Type Severity Reaction Status Date / Time MAVIS Inhibitors Allergy SWELLING Verified 06/25/17 03:17 - Medications Medications: Current Medications Acetaminophen (Tylenol 325mg Tab) 650 mg PO Q6H PRN PRN Reason: Fever >100.4 F, or Pain. Atovaquone (Mepron) 750 mg PO BID DOUGLAS Calcium Acetate (Phoslo) 667 mg PO WM DOUGLAS Clopidogrel Bisulfate (Plavix) 75 mg PO DAILY DOUGLAS Folic Acid (Folic Acid) 1 mg PO DAILY [facility] Heparin Sodium (Porcine) (Heparin) 5,000 units SC Q8H DOUGLAS PRN Reason: Protocol Levothyroxine Sodium (Synthroid) 25 mcg PO ACB [facility] Metoclopramide HCl (Reglan) 10 mg IVP Q6H [facility] Last Admin: 06/25/17 05:01 Dose: Not Given Metoprolol Tartrate (Lopressor) 50 mg PO BID [facility] Non-Formulary Medication (Darunavir [Prezista]) 800 mg PO DAILY [facility] Non-Formulary Medication (Dolutegravir Sodium [Tivicay]) 50 mg PO DAILY [facility] Oseltamivir Phosphate (Tamiflu Susp) 30 mg PO DAILY [facility] PRN Reason: Protocol Pantoprazole Sodium (Protonix Inj) 40 mg IVP DAILY [facility] Physical Exam - Constitutional Appears: Chronically Ill - Head Exam Head Exam: NORMAL INSPECTION - ENT Exam ENT Exam: Mucous Membranes Moist Additional comments: thrush noted in the posterior pharyngeal area - Neck Exam Neck exam: Negative for: Meningismus - Respiratory Exam Respiratory Exam: Decreased Breath Sounds - Cardiovascular Exam Cardiovascular Exam: +S1, +S2 - GI/Abdominal Exam GI & Abdominal Exam: Soft. absent: Tenderness Results - Vital Signs Recent Vital Signs: Last Vital Signs Temp 98.6 F 06/25/17 04:00 Pulse 94 H 06/25/17 05:44 Resp 20 06/25/17 04:00 BP 118/80 06/25/17 04:00 Pulse Ox 99 06/25/17 04:00 - Labs Result Diagrams: 06/25/17 04:25 06/25/17 04:25 Labs: Laboratory Results - last 24 hr 06/25/17 06/25/17 06/25/17 00:07 04:25 04:25 WBC 4.6 D RBC 2.36 L Hgb 7.8 L Hct 26.1 L MCV 110.6 H MCH 33.1 MCHC 29.9 L RDW 14.7 H Plt Count 99 L MPV 10.3 Gran % 70.8 H Lymph % (Auto) 20.7 L [place] % (Auto) 8.1 H Eos % (Auto) 0.4 L Baso % (Auto) 0.0 Gran # 3.22 Lymph # (Auto) 0.9 L [place] # (Auto) 0.4 Eos # (Auto) 0.0 Baso # (Auto) 0.00 Sodium Potassium Chloride Carbon Dioxide Anion Gap BUN Creatinine Est GFR ( Amer) Est GFR (Non-Af Amer) Random Glucose Calcium Total Bilirubin AST ALT Alkaline Phosphatase Total Protein Albumin Globulin Albumin/Globulin Ratio Influenza Typ A,B (EIA) Negative for flu a/b Blood Type A POSITIVE Antibody Screen Negative Crossmatch See Detail BBK History Checked Patient has bt 06/25/17 04:25 WBC RBC Hgb Hct MCV MCH MCHC RDW Plt Count MPV Gran % Lymph % (Auto) [place] % (Auto) Eos % (Auto) Baso % (Auto) Gran # Lymph # (Auto) [place] # (Auto) Eos # (Auto) Baso # (Auto) Sodium 142 Potassium 4.7 Chloride 98 Carbon Dioxide 31 Anion Gap 17 BUN 24 H Creatinine 7.3 H Est GFR ( Amer) 7 Est GFR (Non-Af Amer) 6 Random Glucose 109 Calcium 8.8 Total Bilirubin 0.7 AST 51 H ALT 20 Alkaline Phosphatase 65 Total Protein 8.0 Albumin 3.8 Globulin 4.2 Albumin/Globulin Ratio 0.9 L Influenza Typ A,B (EIA) Blood Type Antibody Screen Crossmatch BBK History Checked Assessment & Plan - Assessment and Plan (Free Text) Plan: Assessment Systemic Inflammatory Response Syndrome, R/O sepsis source to be determined, consider due to Cony esophagitis in this patient also with oral candidiasis HIV and AIDS, non-compliant with ART, last CD4 count 163 in 2015 history of Cdiff associated diarrhea history of left upper lobe HCAP erosive gastritis HTN chronic renal failure on hemodialysis coronary artery disease history of UTI history of esophageal ulcer S/P cholecystecomty Plan gave a dose of IV Vanco and started Cefepime pending blood cx, urine cx; reviewed CXR which does not show infiltrates started Diflucan (renally-adjusted) and will monitor clinical response even though rapid flu is negative, we have started Tamiflu as well continue ART and PJP Prophylaxis follow up Cardio evaluation will follow clinically
[2017-06-25] MEDS: Levalbuterol 0.63 MG/3 ML Inhal Soln UD IH SCH ×2 (13:54→19:59)
--- NOTE | 2017-06-25 15:25 | HP ---
HISTORY OF PRESENT ILLNESS: The patient is a 57-year-old -[place] female, presented to the emergency room in the late night hours, complaining of non-radiating ribcage chest pain, 10/10 abdominal pain, nausea, vomiting. The patient came to the emergency room at [facility] from [facility]. According to the ER physician on ER staff evaluation, the patient complains of 3 days' history of waxing and waning ribcage chest pain, epigastric pain, severe pain 10/10. The patient reports nausea, vomiting. Bile-like vomitus. Positive fever, chills, and sweating. The patient denies any constipation. The patient was in the office last week, the patient stated that she has stopped taking all medications including HIV meds. The patient also has not refilled her prescription since the last hospitalization, which the patient was given hard copy prescription was electronically submitted all the medicines which the patient never started. The patient was again given new prescriptions and new medication to refill upon the last office visit, which the patient has not stated taking. REVIEW OF SYSTEMS: A 13-system review was done, pertinent positive and negative dictated above. CODE STATUS: Full code. ALLERGIES: MAVIS INHIBITORS. HEIGHT: 5 feet 3 inches. WEIGHT: 127 BMI: 22 MEDICATIONS: The patient's last discharge medications were Mepron 750 mg twice a day, PhosLo 667 mg one to two tablets 3 times a day, Plavix 75 mg daily, Prezista 800 mg daily, Tivicay 50 mg daily, folic acid 1 mg daily, Synthroid 25 mcg daily, Reglan 10 mg p.o. up to 4 times a day as needed, Lopressor 50 mg twice a day, Protonix 40 mg twice a day, MiraLax 17 g three times a day, Crestor 20 mg at bedtime, which the patient states that she is not taking any of the medications. 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, HIV nephropathy, and IgA nephropathy: history of severe narcotic dependence; history of narcotic seeking behavior; history of narcotic dependence in the past; history of constipation; history of gastroparesis; history of doxycycline-induced esophagitis; history of gastritis; history of gastroesophageal reflux; history of extremely poor compliance and noncompliance; history of hypercholesteremia; history of hypothyroidism; hypertriglyceridemia; history of left upper extremity AV fistula placement; history of Tenckhoff catheter placement and removal; history of hypertension; history of hyperlipidemia; history of end-stage renal disease; history of HIV AIDS with low CD-4 count and noncompliance with HIV medication; history of multiple cardiac catheterization; history of musculoskeletal ribcage and chest wall pain; history of alcoholism in the past; history of appendectomy, cholecystectomy; history of right foot fracture; history of depression; history of anxiety; history of substance abuse in the past; history of HIV AIDS secondary to sexually transmission; history of anemia; history of pulmonary hypertension. Last echocardiogram done in 05/09/2016, showing left ventricular ejection fraction of 34%. History of pulmonary arterial hypertension with right ventricular systolic pressure of 57 mmHg, history of concentric left ventricular hypertrophy, history of moderately impaired left ventricular ejection fraction and function with 34% left ventricular ejection fraction, history of grade II pseudonormal filling dynamics, history of moderately to severely dilated right ventricle and moderately to severely reduced right ventricular systolic function, history of moderately dilated right atrium, history of trace aortic regurgitation, history of moderate mitral regurgitation, history of ydyplcwe-vh-xoennt tricuspid regurgitation, history of moderately impaired left ventricular systolic function with left ventricular ejection fraction of 35% and concentric left ventricular hypertrophy, history of right ventricular volume and pressure overload, history of moderate to severely dilated right ventricle, history of ywguulki-ij-ttavadsx reduced right ventricular systolic function, history of moderate mitral regurgitation, severe tricuspid regurgitation, history of pulmonary hypertension, history of patent stent in LAD, left circumflex and diagonal vessel; history of 90% stenosis of the proximal posterior descending artery and the midportion of posterior descending artery, history of proximal right coronary artery heavy calcification, history of left ventricular ejection fraction of 50% on cardiac catheterization in 02/2016. History of successful angioplasty and stent placement of the 90% stenosis of the posterior descending artery, history of IgA nephropathy. PHYSICAL EXAMINATION: The patient is seen and examined. VITAL SIGNS: The patient's T-max 101.0. Telemetry initially shows sinus tachycardia. En route, heart rate 102. Blood pressure initially 140/76, 114/72, 113/86, 118/80. Respirations 20, O2 sat 95% to 99%. GENERAL: The patient is seen lying in the bed in room 268, bed 1. The patient while observed from outside the room was in no distress and the patient was watching TV. As soon as I entered the room, the patient started complaining of and asking for the pain medication. HEAD: Normocephalic, atraumatic. HEENT: Shows pinkish pale conjunctivae. Anicteric sclerae. No oropharyngeal lesion. Positive oral thrush noted. NECK: No jugular venous distention. No neck rigidity. CHEST: Kyphosis. LUNGS: Show no rales, crackles, or wheezing. Questionable decreased breath sound at the left base. CARDIOVASCULAR: S1 and S2, regular rhythm. Positive systolic murmur at left sternal border, left second intercostal space, right second intercostal space. ABDOMEN: The patient started screaming with pain even before my hand touched her abdomen and the patient started screaming in pain. There is no costovertebral angle tenderness. Otherwise clear. GENITALIA: Female. EXTREMITIES: Show positive left upper extremity AV fistula. Lower extremity shows no pitting edema, no calf tenderness, no Homans sign. NEUROLOGIC: The patient is alert, awake, and oriented x3. Cranial nerves II through XII intact and limited. Gait examination is not tested. MUSCULOSKELETAL: 22.3 DIAGNOSTICS: 06/24/2017, and 06/25/2017, noted. WBC 7.0 and 4.6. Hemoglobin and hematocrit 8.5 and 28.5, and 7.8 and 26.1. MCV is 110 and 109. Platelets 112 and 99. Granulocytes 81% and 70% segs. PT/PTT 12.0, 29.7. VBG was negative for any lactic acidosis. Chemistry is significant for initial CO2 of 35. BUN and creatinine 24 and 6.7, and 24 and 7.3. Magnesium 1.8. AST 50 and 51. Troponin 0.04 and 0.05. Triglyceride 223, cholesterol 129, LDL 44. B12, folate pending. Influenza serology negative, which was done for elevated fever. The patient was typed and crossmatch, blood type is A+. Chest x-ray; no active disease. Abdominal x-ray was done for abdominal pain, which was negative. EKG shows sinus rhythm. Patient was seen and evaluated in the emergency room by the ER physician, Dr. Armijo. Dr. Armijo already gave morphine to the patient. Patient was given IV fluid. Patient was given Zosyn. Patient was given Tamiflu. Patient was given Tylenol. Patient was given Benadryl 25, Pepcid 20. Patient was given morphine 4 mg and patient was advised to be admitted. IMPRESSION: 1. High-grade fever of 101.0 (resolved). 2. Tachycardia. 3. Questionable systemic inflammatory response syndrome. 4. Macrocytic anemia. 5. Thrombocytopenia. 6. Granulocytosis. 7. End-stage renal disease, hemodialysis dependent. 8. Slight mild transaminitis. 9. Hypertriglyceridemia. 10. Narcotic seeking behavior and chronic pain disorder. 11. History of narcotic dependence. Patient has not used in more than a month according to the patient. 12. Abdominal pain versus gastritis and gastroesophageal reflux. 13. Reproducible musculoskeletal chest pain. 14. History of severe noncompliance and history of poor compliance. 15. History of hypothyroidism. 16. History of hypertension. 17. History of gastroesophageal reflux. 18. History of human immunodeficiency virus, acquired immune deficiency syndrome. 19. Oral thrush. 20. History of constipation. 21. Secondary hyperparathyroidism. 22. History of gastroparesis. PLAN: At this time, the patient will be admitted to telemetry with serial cardiac enzymes, serial CMP, LFTs, magnesium, phosphorus. Patient will be continued on the above therapeutic interventions. Current consultation: Cardiology, Gastroenterology, Nephrology, Infectious Disease. Referral to TCU made. The patient has been ordered transfusion of PRBC. The patient is to be resumed on Prezista 800 mg daily, Diflucan 200 mg IV daily, Tivicay 50 mg daily, Ecotrin 81 mg daily, folic acid 1 mg daily, heparin 5000 subcu q. 8, Lipitor 40 mg daily, Lopressor 50 mg twice a day, cefepime 1 g IV q.24, Mepron 750 mg twice a day, MiraLax 17 g three times a day, Mycelex Troches 10 mg five times a day, PhosLo 667 mg with meals, Plavix 75 mg daily, Protonix 40 mg IV daily, Reglan 5 mg IV q. 6 round the clock, Synthroid 25 mcg daily. The patient received Tamiflu 75 mg in the emergency room. The patient has been started on Tamiflu suspension 30 mg daily, Tylenol 650 q.6, suppository q.6 p.r.n. for temperature greater than or equal to 99.5, Xopenex nebulizer 0.63 mg every 6 hours, Zofran 4 mg IV q.4 p.r.n. Repeat EKG ordered. The patient is on liquid diet by Dr. Snider. Patient has been ordered n.p.o. except meds past midnight for possible endoscopy tomorrow. Patient has been ordered out of bed, HUNTER stockings, SCDs, occupational therapy, physical therapy. Patient has been ordered Lidoderm 5% patch to the affected area of pain, to chest wall and rib cage. If the patient is unable to take Toradol if it is contraindicated, patient will be put on Ultram 50 mg three times a day p.r.n. for pain. At present, the patient was seen and examined at length. The patient was explained and updated about her condition, diagnosis, need for transfusion, need for close gastroenterology, cardiology, infectious disease followup. Patient has been ordered transfusion of 1 unit of PRBC. Dictated and electronically signed, not read. Ranjith Rubalcava MD
[2017-06-25] MEDS: Fluconazole IV 200mg/100 ml NS 100 MG in Premixed IV 1 EA IVPB SCH (17:07)
[2017-06-25 17:31] LABS: FOLATE 13.8 ng/mL
--- NOTE | 2017-06-25 19:29 | CON ---
DATE: 06/25/2017 GASTROENTEROLOGY CONSULTATION REQUESTING PHYSICIAN: Ranjith Rubalcava MD. REASON FOR CONSULTATION: I have been asked to see this 57-year-old female with end-stage renal disease, on hemodialysis; HIV positivity; chronic abdominal pain; coronary artery disease, status post coronary artery stent placement; chronic anemia; chronic recurrent abdominal pain, who comes to the hospital with recurrent epigastric pain, chest pain, nausea, and vomiting. Patient states that she has pain in her substernal area with swallowing with some difficulty with passage of food beyond that area. She does have a history of doxycycline-induced esophageal ulcer in the past. She has had multiple endoscopies and colonoscopies in the past. She denies any hematemesis, rectal bleeding, or melena. Routine blood work shows the patient to be profoundly anemic with hemoglobin this morning in the 7 g range and on admission to the hospital, her hemoglobin was 8.5. Patient has been noncompliant with her hemodialysis visits. PAST MEDICAL HISTORY: As above. Again, she has a history of end-stage renal disease, on dialysis; chronic anemia; HIV positivity; coronary artery disease with coronary artery stents. PAST SURGICAL HISTORY: Notable for cholecystectomy, , Bartholin cyst removal. SOCIAL HISTORY: Patient is a former cigarette smoker, having smoked one-pack cigarettes per day for over 20 years. She denies alcohol use. FAMILY HISTORY: Noncontributory. MEDICATIONS: Her medications at home include polyethylene glycol 17 g three times a day, Reglan 10 mg as needed, Plavix 75 mg once a day, PhosLo 667 mg t.i.d., Mepron 750 mg b.i.d., rosuvastatin 20 mg at bedtime, pantoprazole 40 mg once a day, metoprolol 50 mg b.i.d., Levoxyl 25 mcg daily, folic acid 1 mg daily, Tivicay 50 mg once a day, Prezista 800 mg daily. REVIEW OF SYSTEMS: Fourteen-point review of systems is notable for epigastric pain, chest pain, nausea, and vomiting. PHYSICAL EXAMINATION: GENERAL: A well-developed female lying in bed, appears comfortable. VITAL SIGNS: Reveal a temperature of 98.6, blood pressure 118/63, heart rate of 90. HEENT: Reveals sclerae to be white. Conjunctivae pale. NECK: Supple. CHEST: Reveals lungs to be clear. HEART: Exam reveals regular rate and rhythm. ABDOMEN: Soft, mild epigastric tenderness. No rebound or guarding. EXTREMITIES: Show no edema. She has an AV shunt in her left arm. LABORATORY DATA: Reveal a hemoglobin of 7.8, it was 8.5 yesterday on admission to the hospital; white blood cell count 4.6; platelet count of 99,000. Chemistries reveal BUN 24, creatinine 7.3. AST is mildly elevated at 51, ALT 14. PT 12, INR 1.05. IMPRESSION: 1. Epigastric pain with nausea, vomiting, odynophagia, and dysphagia; rule out esophageal ulcer. 2. End-stage renal disease. 3. Chronic recurrent anemia. 4. Human immunodeficiency virus positivity. RECOMMENDATIONS: 1. Transfuse packed red blood cells to a hematocrit of 27%. 2. Continue PPI. 3. I will schedule the patient for a colonoscopy for the morning. Paul Snider MD
--- NOTE | 2017-06-25 20:45 | CON ---
DATE: 06/25/2017 CARDIOLOGY CONSULTATION HISTORY: The patient is a 57-year-old woman who presents again with epigastric pain. The symptoms are increased with swallowing as well as with exertion. The patient's past medical history includes a history of multivessel PTCA and stent in the past. Last was done in 2016. She suffers from end-stage renal disease on dialysis and a history of HIV. She denies smoking. SOCIAL HISTORY: The patient does not smoke. REVIEW OF SYSTEMS: A 14-point review of systems is reviewed in detail. No dyspnea noted, but positive focal epigastric discomfort. PHYSICAL EXAMINATION: GENERAL: On physical exam, the patient is sitting in bed, in no acute distress. VITAL SIGNS: Heart rate is in the 90s. The blood pressure is 118/80. NECK: Negative JVD. LUNGS: Without rales. HEART: With S1, S2. EXTREMITIES: Without edema. IMAGING STUDIES: EKG shows normal sinus rhythm with no acute changes. LABORATORIES: Revealed hemoglobin of 7.8. Troponins negative x2. Renal insufficiency is noted. IMPRESSION: 1. Atypical chest pain. 2. No evidence for acute coronary syndrome. 3. Marked anemia. 4. End-stage renal disease. 5. History of renal insufficiency. 6. History of human immunodeficiency virus in the past. PLAN: Given these findings, the patient given a trial of IV Protonix. The patient will need blood transfusions. After blood transfusion depending on her symptoms, we will consider redo a cardiac catheterization. Derrick Tran MD
--- NOTE | 2017-06-25 21:53 | CARD ---
APPROVED REPORT EKG Measurement Heart [id number] <Conclusion> Normal sinus rhythm Possible Left atrial enlargement Prolonged QT Abnormal ECG
--- NOTE | 2017-06-25 22:12 | CARD ---
APPROVED REPORT EKG Measurement Heart [id number] <Conclusion> Sinus tachycardia Minimal voltage criteria for LVH, may be normal variant Nonspecific ST and T wave abnormality Abnormal ECG
[2017-06-26] MEDS: Levalbuterol 0.63 MG/3 ML Inhal Soln UD IH SCH ×4 (01:23→20:19)
[2017-06-26] MEDS: Cefepime 1gm in NS 100ml 1 GM/100 ML BAG IVPB SCH (05:45)
[2017-06-26] MEDS ORDERED: Propofol 10 mg/ml Inj (20 ML) ONE (08:55)
[2017-06-26] MEDS ORDERED: Benzocaine/Butamben/Tetracai 14-2-2% TOP Spray TOP ONE (08:59)
[2017-06-26] MEDS ORDERED: Etomidate 20 mg/10ml Inj IV ONE (09:10)
[2017-06-26] MEDS ORDERED: Midazolam 2 MG/2 ML VIAL ONE (09:11)
[2017-06-26] MEDS ORDERED: Sodium Chloride 0.9% 1,000 ML IV SCH (09:30)
[2017-06-26] MEDS: Atovaquone 750 mg/5 ml Susp UD PO SCH ×2 (11:03→17:17)
[2017-06-26] MEDS: Levothyroxine 25 MCG TAB PO SCH (11:03)
[2017-06-26] MEDS: Lidocaine 5% Patch TD SCH (11:04)
[2017-06-26] MEDS: POLYETHYLENE GLYCOL 3350 17 GM/Dose PACKET PO SCH ×3 (11:04→17:36)
--- NOTE | 2017-06-26 11:22 | PN ---
DATE: 06/26/2017 CARDIOLOGY FOLLOWUP SUBJECTIVE: The patient's epigastric discomfort is improved. PHYSICAL EXAMINATION: VITAL SIGNS: Blood pressure is 147/71, heart rates in the 80s, temperature is low grade elevated. NECK: Negative JVD. LUNGS: Without rales. HEART: With S1, S2. EXTREMITIES: Without edema. LABORATORY DATA: The hemoglobin has not been repeated since transfusion was 7.8. Troponins are unchanged. IMPRESSION: Her epigastric pain is better on medical therapy. She is currently in isolation and is being worked up for low-grade temperature. We will continue medical therapy from a cardiac perspective. No plans for cardiac catheterization today. Derrick Tran MD
[2017-06-26] MEDS: DARUNAVIR 800 MG PO SCH ×2 (11:23→21:32)
[2017-06-26] MEDS: Oseltamivir 6 MG/ML PO SCH (11:40)
[2017-06-26 11:46] VITALS: RESP 20
[2017-06-26] MEDS ORDERED: DiphenhydrAMINE 50 mg/ml Inj IVP ONE (11:52)
[2017-06-26 11:56] LABS: HEMOGLOBIN 9.1 g/dL (12.0-16.0); MEAN CELL VOLUME 106.5 fl (80.0-105.0); MEAN CORPUSCULAR HEMOGLOBIN 33.1 pg (25.0-35.0); MEAN CORPUSCULAR HGB CONC 31.1 g/dl (31.0-37.0); MEAN PLATELET VOLUME 10.7 fl (7.0-11.0); RBC 2.75 10^6/uL (3.5-6.1); RED CELL DISTRIBUTION WIDTH 16.8 % (11.5-14.5); WHITE BLOOD COUNT 4.6 10^3/ul (4.5-11.0)
[2017-06-26 12:09] LABS: ALB/GLOB RATIO 0.9 (1.1-1.8); ALBUMIN 3.8 g/dL (3.0-4.8); CALCIUM 8.4 mg/dL (8.4-10.5); MAGNESIUM 1.9 mg/dL (1.7-2.2)
[2017-06-26] MEDS ORDERED: Darbepoetin Alfa 100 mcg/ml Inj IVP ONE (12:15)
[2017-06-26 12:34] LABS: IRON 64 ug/dL (45-180)
[2017-06-26 12:44] LABS: % IRON SATURATION 37 % (20-55); TOTAL IRON BINDING CAPACITY 174 ug/dL (265-497)
[2017-06-26] MEDS: Fluconazole IV 200mg/100 ml NS 100 MG in Premixed IV 1 EA IVPB SCH (16:11)
--- NOTE | 2017-06-26 18:59 | CARD ---
APPROVED REPORT EKG Measurement Heart [id number] <Conclusion> Normal sinus rhythm Possible Left atrial enlargement ST abnormality, possible digitalis effect Prolonged QT Abnormal ECG
--- NOTE | 2017-06-26 22:19 | PN ---
DATE: 06/26/2017 SUBJECTIVE: The patient was seen in the room up and ad aguilar. According to the nurses' note, the patient refused this morning a.m. blood work which was verified with the patient's nurse in the room who was present. The patient also refused the telemetry monitoring. PHYSICAL EXAMINATION: VITAL SIGNS: Last 24-hour vital signs: T-max 100.4, down to 99.8. Telemetry shows sinus rhythm, sinus tachycardia. Blood pressure is 112/76, 118/76, 156/78, 146/77, 137/71. Respirations 14-20, O2 sat 95-98%. HEENT: HEAD examination, normocephalic, atraumatic. HEENT examination shows pinkish pale conjunctivae. Anicteric sclerae. No oropharyngeal lesion. No neck rigidity. Positive oral thrush noted. CHEST: Kyphosis. LUNGS: Show no crackles, rales or wheezing. CARDIOVASCULAR: S1, S2, regular rhythm, positive systolic murmur in left sternal border, left second intercostal space, right second intercostal space. ABDOMEN: Completely soft today. The patient today has allowed me to examine the abdomen more properly as compared to yesterday. There is no epigastric periumbilical tenderness. No rebound tenderness. No guarding. No rigidity. There is no costovertebral angle tenderness noted. GENITALIA: Female. RECTAL: Deferred. EXTREMITIES: Show no pitting edema, no calf tenderness. No Homans' sign. Positive left upper extremity AV fistula. Positive thrill noted. NEUROLOGICAL: Cranial nerves II-XII grossly intact. The patient is ambulating independently without any deficits. Neurologically, the patient is alert, awake, responsive. VASCULAR: Palpable pulses. MUSCULOSKELETAL: Shows a body mass index of 22.8. LABORATORY DATA: Later on, around 12, afternoon, the patient agreed to do the blood work and the lab work is now available. CBC from 06/26, WBC 4.6, hemoglobin/hematocrit 9.1/29.3, MCV 106, platelet 101. Sodium 144, potassium 4.7, chloride 102, CO2 of 25, anion gap 21, BUN 38, creatinine 10.6, GFR 5, glucose 106, calcium 8.4, phosphorus 5.8, magnesium 1.9, AST 77. Procalcitonin level 6.79. B12 is 460, folate 13.8, triglyceride 223, cholesterol 129. Influenza serology is negative. Blood cultures, no growth 24 hours. The patient received 1 unit of PRBC transfusion. The patient's chest x-ray was reviewed from yesterday. EKG from today was reviewed. The patient was seen by Cardiology and Infectious Disease. Their recommendations noted and explained to the patient, which she acknowledged understand. IMPRESSION AND PLAN: 1. Possible systemic inflammatory response syndrome with high-grade fever. 2. Tachycardia. 3. Hypertension. 4. Granulocytosis. 5. Macrocytic anemia. 6. Thrombocytopenia. 7. Status post packed red blood cell transfusion x1. 8. End-stage renal disease, hemodialysis dependent, three times a week via the left upper extremity arteriovenous fistula. 9. Transaminitis. 10. Indeterminate troponin. 11. Hypertriglyceridemia. 12. Hyperprocalcitoninemia. 13. History of poor compliance and noncompliance. 14. History of narcotic dependent pain syndrome. 15. Nonspecific ST-T changes. 16. Status post esophagogastroduodenoscopy with biopsy. 17. Gastritis. 18. Oral candidiasis and oral thrush with possible esophageal candidiasis and thrush. 19. Hiatal hernia. 20. History of poor compliance. 21. Gastritis with abdominal pain. 22. Febrile illness. 23. Systemic inflammatory response syndrome. 24. Cony esophagitis with oral candidiasis. 25. Acquired immune deficiency syndrome and human immunodeficiency virus with noncompliance with ART therapy. 26. End-stage renal disease, hemodialysis dependent. 27. Odynophagia/dysphagia secondary to oral candidiasis and esophageal candidiasis secondary to advanced acquired immune deficiency syndrome and human immunodeficiency virus status. 28. Atypical chest pain. 29. Chronic narcotic dependent pain syndrome. 30. History of constipation. 31. Secondary hyperparathyroidism. 32. Hypothyroidism. 33. Gastroparesis. 1. High-grade fever of 101.0 (resolved). 2. Tachycardia. 3. Questionable systemic inflammatory response syndrome. 4. Macrocytic anemia. 5. Thrombocytopenia. 6. Granulocytosis. 7. End-stage renal disease, hemodialysis dependent. 8. Slight mild transaminitis. 9. Hypertriglyceridemia. 10. Narcotic seeking behavior and chronic pain disorder. 11. History of narcotic dependence. Patient has not used in more than a month according to the patient. 12. Abdominal pain versus gastritis and gastroesophageal reflux. 13. Reproducible musculoskeletal chest pain. 14. History of severe noncompliance and history of poor compliance. 15. History of hypothyroidism. 16. History of hypertension. 17. History of gastroesophageal reflux. 18. History of human immunodeficiency virus, acquired immune deficiency syndrome. 19. Oral thrush. 20. History of constipation. 21. Secondary hyperparathyroidism. 22. History of gastroparesis. Plan at this time, the patient has been ordered out of bed, physical therapy, occupational therapy, ambulation therapy ordered. The patient underwent esophagogastroduodenoscopy. The results were noted. The patient's case referred for physical therapy. The patient's antibiotic treatment management was discussed with the Infectious Disease, awaiting their response. The patient has been ordered repeat labs. CURRENT MEDICATIONS: The patient received Aranesp 100 mcg IV today, Benadryl 50 mg IV today. The patient is on Prezista 800 mg daily, Diflucan 200 mg daily, Tivicay 50 mg daily, Ecotrin 81 mg daily, folic acid 1 mg daily, heparin 5000 units subcu q.8, Lidoderm 5% patch to the affected area, Lipitor 40 mg daily, Lopressor 50 mg twice a day, cefepime 1 g IV q.24, Mepron 750 mg twice a day, MiraLax 17 g three times a day, Mycelex Tejal 10 mg five times a day, PhosLo 667 mg with meals, Plavix 75 mg daily, Protonix 40 mg IV q.12, Reglan 5 mg IV q.6, Synthroid 25 mcg daily, Tamiflu 30 mg suspension daily, Tylenol 650 mg p.o. or suppository q.6 p.r.n., Ultram 50 mg t.i.d. p.r.n., Xopenex nebulizer 0.63 mg every 6 hours, Zofran 4 mg IV q.4 p.r.n. Oxygen has been ordered. Out of bed, HUNTER stockings. Ambulation ordered. The patient will be considered for discharge soon after clearance by Cardiology, Gastroenterology and Infectious Disease. Dictated and electronically signed, not read. Ranjith Rubalcava MD [facility]
[2017-06-27] MEDS: Levalbuterol 0.63 MG/3 ML Inhal Soln UD IH SCH ×2 (01:50→07:38)
[2017-06-27] MEDS: Cefepime 1gm in NS 100ml 1 GM/100 ML BAG IVPB SCH (05:44)
[2017-06-27 07:15] VITALS: O2SAT 94
[2017-06-27] MEDS: Levothyroxine 25 MCG TAB PO SCH (08:24)
[2017-06-27] MEDS: Fluconazole IV 200mg/100 ml NS 100 MG in Premixed IV 1 EA IVPB SCH (09:29)
[2017-06-27] MEDS: Lidocaine 5% Patch TD SCH (09:30)
[2017-06-27] MEDS: DARUNAVIR 800 MG PO SCH (09:30)
[2017-06-27] MEDS: Atovaquone 750 mg/5 ml Susp UD PO SCH (09:30)
[2017-06-27] MEDS: POLYETHYLENE GLYCOL 3350 17 GM/Dose PACKET PO SCH (09:30)
--- NOTE | 2017-06-27 10:15 | CP.PCM.PN ---
Subjective - Date & Time of Evaluation Date of Evaluation: 06/26/17 Time of Evaluation: 09:10 - Subjective Subjective: Swallowing better, pain on swallowing is improved, no fevers, not in distress, no diarrhea, no SOB at rest, no cough. Objective - Vital Signs/Intake and Output Vital Signs (last 24 hours): Temp Pulse Resp BP Pulse Ox 98.8 F 94 H 20 122/82 97 06/26/17 06:00 06/26/17 06:00 06/26/17 06:00 06/26/17 06:00 06/26/17 06:00 Intake and Output: 06/26/17 06/26/17 06:59 18:59 Intake Total 240 Balance 240 - Medications Medications: Current Medications Acetaminophen (Tylenol 325mg Tab) 650 mg PO Q6 PRN PRN Reason: TEMP>=99.5F Last Admin: 06/25/17 14:41 Dose: 650 mg Acetaminophen (Tylenol 650 Mg Supp) 650 mg RC Q6H PRN PRN Reason: TEMP>=99.5F Aspirin (Ecotrin) 81 mg PO DAILY [facility] Last Admin: 06/25/17 09:45 Dose: 81 mg Atorvastatin Calcium (Lipitor) 40 mg PO DIN [facility] Last Admin: 06/25/17 18:41 Dose: Not Given Atovaquone (Mepron) 750 mg PO BID [facility] Last Admin: 06/25/17 18:42 Dose: Not Given Calcium Acetate (Phoslo) 667 mg PO WM [facility] Last Admin: 06/25/17 18:42 Dose: Not Given Clopidogrel Bisulfate (Plavix) 75 mg PO DAILY [facility] Last Admin: 06/25/17 09:45 Dose: 75 mg Clotrimazole (Mycelex Tejal) 10 mg MT 5XD [facility] Last Admin: 06/26/17 05:41 Dose: 10 mg Folic Acid (Folic Acid) 1 mg PO DAILY [facility] Last Admin: 06/25/17 09:45 Dose: 1 mg Heparin Sodium (Porcine) (Heparin) 5,000 units SC Q8H [facility] PRN Reason: Protocol Last Admin: 06/26/17 01:18 Dose: 5,000 units Cefepime HCl (Maxipime 1gm) 1 gm in 100 mls @ 100 mls/hr IVPB Q24H [facility] PRN Reason: Protocol Last Admin: 06/26/17 05:45 Dose: 100 mls/hr Fluconazole 100 mg/ (Miscellaneous) 50 mls @ 100 mls/hr IVPB DAILY [facility] PRN Reason: Protocol Last Admin: 06/25/17 17:07 Dose: 100 mls/hr Levalbuterol HCl (Xopenex) 0.63 mg IH [id number] [facility] Last Admin: 06/26/17 08:16 Dose: Not Given Levothyroxine Sodium (Synthroid) 25 mcg PO ACB [facility] Last Admin: 06/25/17 07:06 Dose: 25 mcg Lidocaine (Lidoderm) 1 ea TD DAILY [facility] Last Admin: 06/25/17 11:57 Dose: 1 ea Metoclopramide HCl (Reglan) 5 mg IVP Q6H [facility] Last Admin: 06/26/17 05:40 Dose: 5 mg Metoprolol Tartrate (Lopressor) 50 mg PO BID [facility] Last Admin: 06/25/17 18:45 Dose: Not Given Non-Formulary Medication (Darunavir [Prezista]) 800 mg PO DAILY [facility] Non-Formulary Medication (Dolutegravir Sodium [Tivicay]) 50 mg PO DAILY [facility] Ondansetron HCl (Zofran Inj) 4 mg IVP Q4H PRN PRN Reason: Nausea/Vomiting Oseltamivir Phosphate (Tamiflu Susp) 30 mg PO DAILY [facility] PRN Reason: Protocol Last Admin: 06/25/17 09:44 Dose: 30 mg Pantoprazole Sodium (Protonix Inj) 40 mg IVP Q12H [facility] Last Admin: 06/25/17 23:35 Dose: 40 mg Polyethylene Glycol (Miralax) 17 gm PO TID [facility] Last Admin: 06/25/17 18:42 Dose: Not Given Tramadol HCl (Ultram) 50 mg PO TID PRN PRN Reason: Pain, moderate (4-7) - Labs Labs: 06/25/17 04:25 06/25/17 04:25 PT 12.0 SECONDS (9.4-12.5) 06/24/17 22:20 INR 1.05 (0.93-1.08) 06/24/17 22:20 APTT 29.7 Seconds (25.1-36.5) 06/24/17 22:20 - Constitutional Appears: Chronically Ill - Head Exam Head Exam: NORMAL INSPECTION - ENT Exam Additional comments: oral thrush has improved - Neck Exam Neck Exam: absent: Meningismus - Respiratory Exam Respiratory Exam: Decreased Breath Sounds - Cardiovascular Exam Cardiovascular Exam: +S1, +S2 - GI/Abdominal Exam GI & Abdominal Exam: Soft. absent: Tenderness Assessment and Plan - Assessment and Plan (Free Text) Plan: Assessment Systemic Inflammatory Response Syndrome, consider due to Cony esophagitis in this patient also with oral candidiasis HIV and AIDS, non-compliant with ART, last CD4 count 163 in 2015 history of Cdiff associated diarrhea history of left upper lobe HCAP erosive gastritis HTN chronic renal failure on hemodialysis coronary artery disease history of UTI history of esophageal ulcer S/P cholecystecomty Plan will d/c Cefepime since blood cx, CXR are negative continue Diflucan (renally-adjusted) to complete 10-14 days of therapy (day 3 today) even though rapid flu is negative, we have started Tamiflu as well continue ART and PJP Prophylaxis discussed with Dr. Rubalcava - patient will follow up at Dr. Rubalcava' office
[2017-06-27] MEDS: Oseltamivir 6 MG/ML PO SCH (10:41)
--- NOTE | 2017-06-27 11:36 | PN ---
DATE: 06/27/2017 CARDIOLOGY FOLLOWUP SUBJECTIVE: The patient's chest pain is better now that her hemoglobin is better. PHYSICAL EXAMINATION: VITAL SIGNS: Stable. NECK: Negative JVD. LUNGS: Without rales. HEART: With S1, S2. EXTREMITIES: Without edema. LABORATORY DATA: Laboratories are noted. IMPRESSION: 1. Chest pain, which is likely due to her esophagitis. 2. End-stage renal disease. 3. History of human immunodeficiency virus. 4. Noncompliance with medications. PLAN: Given these findings, I have discussed with the patient about the need to take her medications especially given her multiple medical issues. The patient is being discharged today. Derrick Tran MD
[2017-06-27 12:33] VITALS: BP 123/83; PULSE 72; TEMP 98.3
--- NOTE | 2017-06-27 15:00 | PN ---
DATE: 06/27/2017 SUBJECTIVE: The patient is seen lying in bed. She is awake. She is alert. She is still somewhat slow. She complains of pain on swallowing. She denies any shortness of breath. She denies any abdominal pain. PHYSICAL EXAMINATION: GENERAL: Elderly lady, lying in bed. VITAL SIGNS: Blood pressure 123/83, heart rate 72, respiratory rate 20, temperature 98.3. HEENT: Normocephalic, atraumatic. NECK: Supple, no JVD. LUNGS: Bilateral equal entry, bilateral equal expansion, no rales. CARDIAC: S1 and S2, regular rate and rhythm, no murmur, no rub. ABDOMEN: Distended, soft, nontender, bowel sounds present. EXTREMITIES: No lower extremity edema. LABORATORY DATA: No new labs. MEDICATIONS: List reviewed. Endoscopy report, diffuse candidiasis was found in the middle third of the esophagus. ASSESSMENT: 1. Dysphagia/odynophagia secondary to esophageal candidiasis. 2. Severe anemia. 3. Human immunodeficiency virus. 4. End-stage renal disease. 5. Hypertension. 6. Noncompliance with antiretrovirals. PLAN: 1. Continue antifungal as advised by ID. 2. The patient now agrees to restart her antiretrovirals. 3. The patient had stable dialysis yesterday. 4. Monitor H and H. 5. Soft food. Meryl Shukla MD
--- NOTE | 2017-06-27 15:37 | PN ---
DATE: 06/26/2017 SUBJECTIVE: The patient is seen in the dialysis unit. She is awake. She is groggy. She is somewhat disoriented. She is having trouble focusing. PHYSICAL EXAMINATION: GENERAL: Middle-aged lady, seen in the dialysis unit. VITAL SIGNS: Blood pressure 130/55, heart rate 89, respiratory rate 18, temperature 98.1. HEENT: Normocephalic, atraumatic, positive pallor. NECK: Supple, no JVD. LUNGS: Bilateral equal air entry, bilateral equal expansion, no rales. CARDIAC: S1 and S2, regular rate and rhythm, no murmurs, no rub. ABDOMEN: Soft, nondistended, positive epigastric tenderness, bowel sounds present. EXTREMITIES: . LABORATORY DATA: , hemoglobin 9, hematocrit 29, platelets 106. Sodium 144, potassium 4.7, chloride 102, CO2 of 25, BUN 38, creatinine , glucose 106, calcium 8.4, phosphorus 5.8, magnesium 1.9, iron saturation 37, iron 64, ferritin 3720. MEDICATIONS: List reviewed. ASSESSMENT: 1. Retrosternal/epigastric pain, dysphagia, odynophagia. 2. Anemia. 3. Human immunodeficiency virus. 4. End-stage renal disease. PLAN: 1. Follow up endoscopy reports. 2. The patient has received 1 unit of blood yesterday, hemoglobin is better. 3. Stable dialysis. 4. Continue phosphate binders. 5. Limit pain medication. Meryl Shukla MD
--- NOTE | 2017-06-27 21:32 | CP.PCM.PN ---
Subjective - Date & Time of Evaluation Date of Evaluation: 06/27/17 Time of Evaluation: 10:40 - Subjective Subjective: This is a covering note for Dr. Snider. Seen and examined at the bedside earlier today, chart review. Patient denies nausea, vomiting and epigastric discomfort better. Tolerating oral intake. Patient had endoscopy yesterday w/ Dr. Snider, found to have monilial esophagitis , gastric erythema status post biopsies. Objective - Vital Signs/Intake and Output Vital Signs (last 24 hours): Temp Pulse Resp BP Pulse Ox 98.3 F 72 20 123/83 94 L 06/27/17 12:00 06/27/17 12:00 06/27/17 12:00 06/27/17 12:00 06/27/17 06:00 - Labs Labs: 06/26/17 11:30 06/26/17 11:30 PT 12.0 SECONDS (9.4-12.5) 06/24/17 22:20 INR 1.05 (0.93-1.08) 06/24/17 22:20 APTT 29.7 Seconds (25.1-36.5) 06/24/17 22:20 - Constitutional Appears: No Acute Distress - Eye Exam Eye Exam: Normal appearance. absent: Scleral icterus - ENT Exam ENT Exam: Mucous Membranes Moist - Neck Exam Neck Exam: Normal Inspection - Respiratory Exam Respiratory Exam: NORMAL BREATHING PATTERN. absent: Respiratory Distress - Cardiovascular Exam Cardiovascular Exam: +S1, +S2 - GI/Abdominal Exam GI & Abdominal Exam: Soft, Normal Bowel Sounds. absent: Guarding, Tenderness, Rebound - Extremities Exam Extremities Exam: absent: Calf Tenderness, Pedal Edema - Neurological Exam Neurological Exam: Alert, Awake, Oriented x3 - Skin Skin Exam: Dry, Warm Assessment and Plan - Assessment and Plan (Free Text) Assessment: Assessment: Improved epigastric pain, status post endoscopy found to have monilial esophagitis, gastric erythema status post biopsy End stage renal disease Chronic anemia Human immunodeficiency virus positive Plan: [place] H&H and monitor for overt GI bleed continue PPI On antifungal FU BX results Patient is planned for discharge today, discussed with patient to follow up at Dr. Snider's office. Discussed with Dr. Mejia who is covering for Dr. Snider.
--- NOTE | 2017-06-27 22:28 | CARD ---
APPROVED REPORT EKG Measurement Heart [id number] <Conclusion> Normal sinus rhythm Prolonged QT Abnormal ECG
--- NOTE | 2017-06-28 02:57 | DS ---
FINAL PROGRESS NOTE AND DISCHARGE SUMMARY LOCATION: The patient is seen in room 268, bed 1. SUBJECTIVE: According to the nurses' notes, the patient has been refusing telemetry monitoring. Patient has been refusing to cooperate with the nursing and physician care. Patient yesterday refused blood work. Overnight nurse's notes reviewed. The patient slept well. PHYSICAL EXAMINATION: VITAL SIGNS: T-max 98.7. Telemetry shows sinus rhythm. Heart rate is well-controlled into 80s and 70s on telemetry monitoring. Blood pressure 104/70, 130/55, 147/71, 137/71, 146/77. O2 sat 96%. HEENT: Head, normocephalic, atraumatic. HEENT examination shows pinkish pale conjunctivae. Anicteric sclerae. Decreasing oral thrush noted. NECK: No neck rigidity. CHEST: Kyphosis. LUNGS: Shows no rales, crackles or wheezing. CARDIOVASCULAR: S1, S2, regular rhythm. Positive systolic murmur at left sternal border, right second intercostal space, left second intercostal space. ABDOMEN: Soft. Patient did allow me to examine her abdomen without any resistance. There is no guarding, rigidity or rebound tenderness noted. GENITALIA: Female. RECTAL: Deferred. EXTREMITIES: Show positive left upper extremity AV fistula, positive thrill. Lower extremity shows no pitting edema, no calf tenderness, no Homans sign. NEUROLOGIC: Patient is alert, awake, oriented x3. Ambulating independently. Cranial nerves II through XII intact. VASCULAR: Palpable pulses. DIAGNOSTICS: None from today. Patient refused the labs again. The 06/26/2017 diagnostic data reviewed. Blood cultures, no growth 48 hours. Patient received 1 unit of PRBC. Repeat EKG reviewed. IMPRESSION AND PLAN: 1. Systemic inflammatory response syndrome. 2. Chest pain, abdominal pain. 3. Odynophagia. 4. Diffuse esophageal candidiasis in the middle third of esophagus. 5. Gastric body erythematous mucosa. 6. Medium size hiatal hernia. 7. Monilial esophagitis. 8. Severe noncompliance with HIV AIDS medicine, and severe noncompliance with antiretroviral therapy. 9. Gastritis. 10. Hypertension. 11. Tachycardia. 12. Human immunodeficiency virus acquired immune deficiency syndrome. 13. End-stage renal disease, hemodialysis dependent. 14. History of narcotic dependence. 15. Hyperlipidemia. 16. Hypertriglyceridemia. 17. Hypothyroidism. 18. Questionable gastroparesis. 1. Possible systemic inflammatory response syndrome with high-grade fever. 2. Tachycardia. 3. Hypertension. 4. Granulocytosis. 5. Macrocytic anemia. 6. Thrombocytopenia. 7. Status post packed red blood cell transfusion x1. 8. End-stage renal disease, hemodialysis dependent, three times a week via the left upper extremity arteriovenous fistula. 9. Transaminitis. 10. Indeterminate troponin. 11. Hypertriglyceridemia. 12. Hyperprocalcitoninemia. 13. History of poor compliance and noncompliance. 14. History of narcotic dependent pain syndrome. 15. Nonspecific ST-T changes. 16. Status post esophagogastroduodenoscopy with biopsy. 17. Gastritis. 18. Oral candidiasis and oral thrush with possible esophageal candidiasis and thrush. 19. Hiatal hernia. 20. History of poor compliance. 21. Gastritis with abdominal pain. 22. Febrile illness. 23. Systemic inflammatory response syndrome. 24. Cony esophagitis with oral candidiasis. 25. Acquired immune deficiency syndrome and human immunodeficiency virus with noncompliance with ART therapy. 26. End-stage renal disease, hemodialysis dependent. 27. Odynophagia/dysphagia secondary to oral candidiasis and esophageal candidiasis secondary to advanced acquired immune deficiency syndrome and human immunodeficiency virus status. 28. Atypical chest pain. 29. Chronic narcotic dependent pain syndrome. 30. History of constipation. 31. Secondary hyperparathyroidism. 32. Hypothyroidism. 33. Gastroparesis. 1. High-grade fever of 101.0 (resolved). 2. Tachycardia. 3. Questionable systemic inflammatory response syndrome. 4. Macrocytic anemia. 5. Thrombocytopenia. 6. Granulocytosis. 7. End-stage renal disease, hemodialysis dependent. 8. Slight mild transaminitis. 9. Hypertriglyceridemia. 10. Narcotic seeking behavior and chronic pain disorder. 11. History of narcotic dependence. Patient has not used in more than a month according to the patient. 12. Abdominal pain versus gastritis and gastroesophageal reflux. 13. Reproducible musculoskeletal chest pain. 14. History of severe noncompliance and history of poor compliance. 15. History of hypothyroidism. 16. History of hypertension. 17. History of gastroesophageal reflux. 18. History of human immunodeficiency virus, acquired immune deficiency syndrome. 19. Oral thrush. 20. History of constipation. 21. Secondary hyperparathyroidism. 22. History of gastroparesis. Plan at this time, patient has been cleared by Cardiology and Gastroenterology. Patient will be considered for discharge after cleared by Infectious Disease. Patient will be discharged on following medications, which are as follows: Aspirin 81 mg p.o. daily, Mepron 750 mg twice a day, PhosLo 667 mg three times a day, Plavix 75 mg daily, Mycelex troches 10 mg five times a day for 10 days, Prezista 800 mg daily, Tivicay 50 mg daily, Diflucan 100 mg daily for 10 days, folic acid 1 mg daily, Synthroid 25 mcg daily, Reglan 10 mg p.r.n., Lopressor 50 mg twice a day, Tamiflu 30 mg daily for 10 days, Protonix 40 mg twice a day, MiraLax 17 g three times a day, Crestor 20 mg at bedtime. Patient is to be discharged home after cleared by ID and Cardiology. Discharge followup with Dr. Tran, Dr. Rubalcava and Dr. Barnhart - patient's Infectious Disease doctor within 1 week. Follow up with Nephrology for dialysis. Patient's discharge medications as per updated ambulatory orders and new scripts, which will be given to the patient upon discharge. Patient was seen and examined with the patient's nurses at bedside. Patient has been extensively explained about the details of her medical condition. The patient was stressed and reinforced about strict compliance with medication, diet, activity, and followup with physicians, and strict compliance with diet and medications. All of the above was explained to the patient in layman's language. All questions concerned answered. Time spent in the entire discharge process, more than 45 minutes. Dictated and electronically signed, not read. Ranjith Rubalcava MD MTDD
== END 2017-06-27 13:00 | disposition home or self-care (01) | DRG 974 ==
LOC: ED 21:22 → ERH 23:54 → 2RNO 06-25 02:55
PROVIDERS: ADMIT Internal Medicine; ATTEND Internal Medicine
PROC: 30233N1 Transfusion of Nonautologous Red Blood Cells into Peripheral Vein, Percutaneous Approach (ICD-10-PCS; 2017-06-25)
PROC: 5A1D70Z Performance of Urinary Filtration, Intermittent, Less than 6 Hours Per Day (ICD-10-PCS; 2017-06-26)
PROC: 0DB28ZX Excision of Middle Esophagus, Via Natural or Artificial Opening Endoscopic, Diagnostic (ICD-10-PCS; principal; 2017-06-26 08:45)
DX: B37.81 Candidal esophagitis (principal); B20 Human immunodeficiency virus [HIV] disease; N18.6 End stage renal disease; R65.10 Systemic inflammatory response syndrome (SIRS) of non-infectious origin without acute organ dysfunction; I12.0 Hypertensive chronic kidney disease with stage 5 chronic kidney disease or end stage renal disease; D69.6 Thrombocytopenia, unspecified; F11.20 Opioid dependence, uncomplicated; N25.81 Secondary hyperparathyroidism of renal origin; K29.60 Other gastritis without bleeding; K31.84 Gastroparesis; K44.9 Diaphragmatic hernia without obstruction or gangrene; D53.9 Nutritional anemia, unspecified; E78.1 Pure hyperglyceridemia; E03.9 Hypothyroidism, unspecified; K21.9 Gastro-esophageal reflux disease without esophagitis; I25.10 Atherosclerotic heart disease of native coronary artery without angina pectoris; Z99.2 Dependence on renal dialysis; Z91.14 Patient's other noncompliance with medication regimen; Z95.5 Presence of coronary angioplasty implant and graft; Z87.891 Personal history of nicotine dependence; Z87.440 Personal history of urinary (tract) infections; Z87.19 Personal history of other diseases of the digestive system

== ENCOUNTER 2017-07-09 21:16 | Observation (INO) | payer MEDICARE, OTHER ==
[2017-07-09 21:31] VITALS: BMI 22.4
--- NOTE | 2017-07-09 21:34 | ED PDOC ---
Arrival/HPI - General Time Seen by Provider: 07/09/17 21:17 Historian: Patient - History of Present Illness Narrative History of Present Illness (Text): 07/09/17 21:34 Fannie Perea is a 57 year old female, whose past medical history includes HIV, AK, CAD with stent placement, ESRD on hemodialysis (//Fri), chronic anemia, cholecystectomy, and narcotic dependence, who presents to the Emergency department complaining of shortness of breath. Patient states he has been experiencing shortness of breath with some associated chest discomfort. Patient also reports mid/epigastric pain with nausea, and 3 episodes of yellowish vomiting. Patient states she was fully dialyzed yesterday without difficulty. Patient denies any fever, chills, diarrhea, urinary symptoms, back pain, neck pain, headache, dizziness, or any other complaints. Symptom Onset: Gradual Symptom Course: Unchanged Activities at Onset: Light Context: Home Past Medical History - Provider Review Nursing Documentation Reviewed: Yes - Past History Past History: No Previous - Infectious Disease Hx of Infectious Diseases: None - Tetanus Immunization Tetanus Immunization: Unknown - Cardiac Hx Cardiac Disorders: Yes (CAD, Mi, stents) Hx AK: Yes (3) Hx Hypertension: Yes - Pulmonary Hx Respiratory Disorders: No - Neurological Hx Neurological Disorder: Yes Hx Migraine: Yes - HEENT Hx HEENT Disorder: No - Renal Hx Renal Disorder: Yes Hx Dialysis: Yes () Date of Last Dialysis Treatment: 05/31/17 - Endocrine/Metabolic Hx Endocrine Disorders: Yes Hx Hypothyroidism: Yes - Hematological/Oncological Hx Blood Disorders: Yes (blood transfusion) Hx Anemia: Yes - Integumentary Hx Dermatological Disorder: Yes (generalized body itch on and off) - Musculoskeletal/Rheumatological Hx Falls: No - Gastrointestinal Hx Gastrointestinal Disorders: Yes (peptic ulcer) Hx Gall Bladder Disease: Yes Other/Comment: esophageal ulcer, hx c dif 05/08/16 - Genitourinary/Gynecological Hx Genitourinary Disorders: (esrd, hd renal ventures m w f) Hx Hematuria: Yes Hx Urinary Tract Infection: Yes - Psychiatric Hx Anxiety: Yes Hx Depression: Yes Hx Emotional Abuse: No Hx Physical Abuse: No Hx Substance Use: No (Used 25 Years Ago) - Surgical History Hx Appendectomy: Yes Hx Cardiac Catheterization: Yes Hx Section: Yes Hx Cholecystectomy: Yes Hx Coronary Stent: Yes Other/Comment: x4, excision bartholin cyst, right chest udall in and out, d&c, insertion and removal of peritoneal dialysis cyst, renal bx, left av shunt, mrcp - Anesthesia Hx Anesthesia: Yes Hx Anesthesia Reactions: No Hx Malignant Hyperthermia: No - Suicidal Assessment Feels Threatened In Home Enviroment: No Family/Social History - Physician Review Nursing Documentation Reviewed: Yes Family/Social History: Unknown Family HX Smoking Status: Never Smoked Hx Alcohol Use: No Hx Substance Use: No (Used 25 Years Ago) Hx Substance Use Treatment: No Allergies/Home Meds Allergies/Adverse Reactions: Allergies MAVIS Inhibitors Allergy (Verified 07/09/17 21:31) SWELLING Review of Systems - Physician Review All systems were reviewed & negative as marked: Yes - Review of Systems Constitutional: Normal. absent: Fevers Eyes: Normal ENT: Normal Respiratory: SOB. absent: Cough Cardiovascular: Chest Pain Gastrointestinal: Abdominal Pain, Nausea, Vomiting. absent: Diarrhea Genitourinary Female: Normal. absent: Dysuria, Frequency, Hematuria, Urine Output Changes Musculoskeletal: Normal. absent: Back Pain, Neck Pain Skin: Normal. absent: Rash Neurological: Normal. absent: Headache, Dizziness Endocrine: Normal Hemo/Lymphatic: Normal Psychiatric: Normal Physical Exam Vital Signs Reviewed: Yes Vital Signs Temp Pulse Resp BP Pulse Ox 07/10/17 02:20 89 18 152/89 H 96 07/09/17 21:40 20 98 07/09/17 21:34 98.1 F 127 H 24 155/96 H 100 Temperature: Afebrile Blood Pressure: Normal Pulse: Regular Respiratory Rate: Normal Appearance: Positive for: Well-Appearing, Non-Toxic, Comfortable Pain Distress: None Mental Status: Positive for: Alert and Oriented X 3 - Systems Exam Head: Present: Atraumatic, Normocephalic Pupils: Present: PERRL Extroacular Muscles: Present: EOMI Conjunctiva: Present: Normal Mouth: Present: Moist Mucous Membranes Neck: Present: Normal Range of Motion Respiratory/Chest: Present: Clear to Auscultation, Good Air Exchange. No: Respiratory Distress, Accessory Muscle Use Cardiovascular: Present: Regular Rate and Rhythm, Normal S1, S2. No: Murmurs Abdomen: Present: Tenderness (Mid/epigastric tenderness), Normal Bowel Sounds. No: Distention, Peritoneal Signs Back: Present: Normal Inspection Upper Extremity: Present: Normal Inspection. No: Cyanosis, Edema Lower Extremity: Present: Normal Inspection. No: Edema Neurological: Present: GCS=15, CN II-XII Intact, Speech Normal Skin: Present: Warm, Dry, Normal Color. No: Rashes Psychiatric: Present: Alert, Oriented x 3, Normal Insight, Normal Concentration Medical Decision Making ED Course and Treatment: 07/09/17 21:34 Impression: 57 year old female complaining of shortness of breath, chest discomfort, abdominal pain, nausea and vomiting. Differential Diagnosis included but are not limited to: Plan: -- CT Abdomen and Pelvis w/o contrast -- Labs, cardiac enzymes, BNP, lipase -- Zofran -- Pepcid -- Dilaudid -- Reassess and disposition Prior Visits: Notes and results from previous visits were reviewed. On 06/24/2017, pt was seen in the Emergency department for chest pain/ epigastric pain with nausea, vomiting, and fever. Progress Notes: Reviewed EKG, sinus tachycardia at 101. No ST-segment elevations or depressions , no T-wave inversions, normal intervals. 07/10/17 00:44 Reviewed radiology, Chest X-ray shows: Heart and mediastinum: The heart is enlarged. Aorta is mildly uncoiled. Hilar contours are unremarkable Vascularity:There is mild vascular congestion. Lungs: There is increase in interstitial markings bilaterally. There more focal opacities in the lung bases. Pleural spaces: There no definite effusions. Bony structures:There are no acute osseous abnormalities. IMPRESSION: Cardiomegaly and vascular congestion; probable mild pulmonary edema CT Abdomen and Pelvis shows: Lower thorax: The heart is enlarged. There are coronary artery calcifications. There is no pericardial effusion. There is a hiatal hernia. There are small pleural effusions right greater than left. There is basilar airspace disease. ABDOMEN: Liver: The liver is enlarged. Gallbladder and bile ducts: Gallbladder is absent. There is prominence of the common duct. Pancreas: Pancreas is mildly atrophic. Spleen: unremarkable Adrenals: There is bilateral adrenal thickening left greater than right Kidneys and ureters: Kidneys are atrophic. There are renovascular calcifications bilaterally. There is no pelvocaliectasis or ureterectasis. Stomach and bowel: Stomach is incompletely distended. Rotation is normal. Proximal small bowel is mildly distended with air-fluid levels. Distention decreases distally. Ileocecal region is unremarkable. Appendix and terminal ileum are unremarkable. Colon is incompletely distended which limits evaluation. Appendix: See stomach and bowel PELVIS: Bladder: Bladder is most completely empty. Reproductive: Uterus is atrophic. There are no adnexal masses. ABDOMEN and PELVIS: Intraperitoneal space: There is a small amount of free fluid in the pelvis.There is no free air. Bones/joints: There are no acute osseous abnormalities. Soft tissues: unremarkable Vasculature: There are vascular calcifications. Lymph nodes: There is shotty adenopathy. IMPRESSION: Cardiomegaly and atherosclerotic disease; small pleural effusions with basilar airspace disease edema and/or infiltrate; hepatomegaly; bilateral renal atrophy ; prominent common duct status post cholecystectomy; mild ileus, no obstruction; minimal free fluid in the pelvis Additional nonemergent findings as described above. 07/10/17 02:[address] Rubalcava, who is aware and agrees with plan. Accepts pt in to his service. Pt will go to Tele ob for hyperkalemia, CHF, ESRD, and ileus. Requests Dr. Tran and Dr. Crump on consult. vice president medical affairs notified. - Lab Interpretations Lab Results: 07/09/17 22:26 07/09/17 22:26 Lab Results 07/10/17 02:16: POC Glucose (mg/dL) 77 07/09/17 22:26: WBC 7.4 D, RBC 2.92 L, Hgb 9.8 L, Hct 31.7 L, MCV 108.6 H, MCH 33.6, MCHC 30.9 L, RDW 15.6 H, Plt Count 151, MPV 11.3 H 07/09/17 22:26: Sodium 141, Potassium 6.5 H* D, Chloride 94 L, Carbon Dioxide 33 , Anion Gap 21 H, BUN 44 H, Creatinine 9.2 H*, Est GFR ( Amer) 5, Est GFR (Non-Af Amer) 4, Random Glucose 114 H, Calcium 9.4, Total Bilirubin 0.6, AST 42 H D, ALT 39, Alkaline Phosphatase 101, Lactate Dehydrogenase 690, Total Creatine Kinase 46, Troponin I 0.03 D, NT-Pro-B Natriuret Pep 58160 H, Total Protein 8.7 H, Albumin 4.0, Globulin 4.7, Albumin/Globulin Ratio 0.9 L, Lipase 171 07/09/17 22:26: PT 12.0, INR 1.05, APTT 36.0 I have reviewed the lab results: Yes - RAD Interpretation Radiology Orders: 07/09/17 21:38 CHEST PORTABLE [RAD] Stat 07/09/17 22:26 ABD & PELVIS W/O PO OR IV CONT [CT] Stat Domestic Helper: ED Physician, Radiologist - EKG Interpretation Interpreted by ED Physician: Yes Type: 12 lead EKG - Medication Orders Current Medication Orders: Sodium Polystyrene Sulfonate (Kayexalate Susp) 30 gm PO ONCE ONE Stop: 07/10/17 02:32 Discontinued Medications Albuterol Sulfate (Albuterol 0.5% Inhal Cindy (5 Mg/ Ml) 20 Ml) 10 mg IH ONCE STA Stop: 07/09/17 23:49 Last Admin: 07/10/17 00:38 Dose: 10 mg Dextrose (Dextrose 50% Inj) 50 ml IVP ONCE ONE Stop: 07/09/17 23:48 Last Admin: 07/10/17 00:08 Dose: 50 ml IVP Administration Document 07/10/17 00:08 IT (Rec: 07/10/17 00:08 IT [id number]) Charges for Administration # of IVP Administrations 1 Diphenhydramine HCl (Benadryl) 25 mg IVP ONCE ONE Stop: 07/09/17 22:59 Last Admin: 07/09/17 23:14 Dose: 25 mg IVP Administration Document 07/09/17 23:14 IT (Rec: 07/09/17 23:17 IT [id number]) Charges for Administration # of IVP Administrations 1 Famotidine (Pepcid) 20 mg IVP STAT STA Stop: 07/09/17 21:43 Last Admin: 07/09/17 22:38 Dose: 20 mg IVP Administration Document 07/09/17 22:38 IT (Rec: 07/09/17 22:38 IT [id number]) Charges for Administration # of IVP Administrations 1 Hydromorphone HCl (Dilaudid) 0.5 mg IVP STAT STA Stop: 07/09/17 22:20 Last Admin: 07/09/17 22:53 Dose: 0.5 mg MAR Pain Assessment Document 07/09/17 22:53 IT (Rec: 03/07/18 23:03 IT [id number]) Pain Reassessment Is this a pain reassessment? No Presence of Pain Presence of Pain Yes IVP Administration Document 07/09/17 22:53 IT (Rec: 07/09/17 23:03 IT [id number]) Charges for Administration # of IVP Administrations 1 Insulin Human Regular (Humulin R) 10 units IVP STAT STA Stop: 07/09/17 23:48 Last Admin: 07/10/17 00:08 Dose: 10 units IVP Administration Document 07/10/17 00:08 IT (Rec: 07/10/17 00:08 IT [id number]) Charges for Administration # of IVP Administrations 1 Ondansetron HCl (Zofran Inj) 4 mg IVP ONCE ONE Stop: 07/09/17 21:43 Last Admin: 07/09/17 22:38 Dose: 4 mg IVP Administration Document 07/09/17 22:38 IT (Rec: 07/09/17 22:38 IT [id number]) Charges for Administration # of IVP Administrations 1 Sodium Polystyrene Sulfonate (Kayexalate Susp) 30 gm PO STAT STA Stop: 07/09/17 23:50 Last Admin: 07/10/17 00:08 Dose: 30 gm - Scribe Statement The provider has reviewed the documentation as recorded by the Yanet Hall Provider Scribe Attestation: All medical record entries made by the Scribe were at my direction and personally dictated by me. I have reviewed the chart and agree that the record accurately reflects my personal performance of the history, physical exam, medical decision making, and the department course for this patient. I have also personally directed, reviewed, and agree with the discharge instructions and disposition. Disposition/Present on Arrival - Present on Arrival Any Indicators Present on Arrival: No History of DVT/PE: No History of Uncontrolled Diabetes: No Urinary Catheter: No History Surgical Site Infection Following: None - Disposition Have Diagnosis and Disposition been Completed?: Yes Diagnosis: Hyperkalemia, CHF (congestive heart failure), Ileus Disposition: HOSPITALIZED Disposition Time: 02:37 Patient Plan: Observation Condition: STABLE Discharge Instructions (ExitCare): Heart Failure (ED) Referrals: Ranjith Rubalcava MD [Primary Care Provider] - Follow up with primary
[2017-07-09] MEDS ORDERED: HYDROmorphone 0.5 mg/0.5 ml ISec IVP STA (22:19)
[2017-07-09 22:48] LABS: HEMOGLOBIN 9.8 g/dL (12.0-16.0); MEAN CELL VOLUME 108.6 fl (80.0-105.0); MEAN CORPUSCULAR HEMOGLOBIN 33.6 pg (25.0-35.0); MEAN CORPUSCULAR HGB CONC 30.9 g/dl (31.0-37.0); MEAN PLATELET VOLUME 11.3 fl (7.0-11.0); RBC 2.92 10^6/uL (3.5-6.1); RED CELL DISTRIBUTION WIDTH 15.6 % (11.5-14.5); WHITE BLOOD COUNT 7.4 10^3/ul (4.5-11.0)
[2017-07-09] MEDS ORDERED: DiphenhydrAMINE 50 mg/ml Inj IVP ONE (22:58)
[2017-07-09 23:01] LABS: INR 1.05 (0.93-1.08)
[2017-07-09 23:06] LABS: TROPONIN I 0.03 ng/mL
[2017-07-09 23:23] LABS: ALB/GLOB RATIO 0.9 (1.1-1.8); CALCIUM 9.4 mg/dL (8.4-10.5)
[2017-07-09] MEDS ORDERED: Dextrose 50% SYRINGE Inj (50 ml) IVP ONE (23:47)
[2017-07-09] MEDS ORDERED: Insulin Regular 1 UNITS/0.01 ML ML IVP STA (23:47)
[2017-07-09] MEDS ORDERED: Albuterol 0.5% Inhal Sol (5 mg/ ml) 20 ml IH STA (23:48)
[2017-07-09] MEDS ORDERED: Sod Polystyrene Sulf 15 gm/60 ml Susp PO STA (23:49)
--- NOTE | 2017-07-10 00:24 | RAD ---
EXAM: XR Chest, 1 View EXAM DATE/TIME: 07/09/2017 9:38 PM CLINICAL HISTORY: 57 years old, female; Signs and symptoms; Shortness of breath; Additional info: SOB TECHNIQUE: Frontal view of the chest. COMPARISON: DX - CHEST ONE VIEW 2017-06-25 08:51 FINDINGS: Heart and mediastinum: The heart is enlarged. Aorta is mildly uncoiled. Hilar contours are unremarkable Vascularity:There is mild vascular congestion. Lungs: There is increase in interstitial markings bilaterally. There more focal opacities in the lung bases. Pleural spaces: There no definite effusions. Bony structures:There are no acute osseous abnormalities. IMPRESSION: Cardiomegaly and vascular congestion; probable mild pulmonary edema
--- NOTE | 2017-07-10 00:33 | CT ---
EXAM: CT Abdomen and Pelvis Without Intravenous Contrast EXAM DATE/TIME: 07/09/2017 10:26 PM CLINICAL HISTORY: 57 years old, female; Pain; Abdominal pain; Generalized TECHNIQUE: Axial computed tomography images of the abdomen and pelvis without intravenous contrast. All CT scans at this facility use one or more dose reduction techniques, viz.: automated exposure control; ma/kV adjustment per patient size (including targeted exams where dose is matched to indication; i.e. head); or iterative reconstruction technique. Coronal and sagittal reformatted images were created and reviewed. COMPARISON: CT - ABD PELVIS W/O PO OR IV CONT 2017-05-31 16:32 FINDINGS: Lower thorax: The heart is enlarged. There are coronary artery calcifications. There is no pericardial effusion. There is a hiatal hernia. There are small pleural effusions right greater than left. There is basilar airspace disease. ABDOMEN: Liver: The liver is enlarged. Gallbladder and bile ducts: Gallbladder is absent. There is prominence of the common duct. Pancreas: Pancreas is mildly atrophic. Spleen: unremarkable Adrenals: There is bilateral adrenal thickening left greater than right Kidneys and ureters: Kidneys are atrophic. There are renovascular calcifications bilaterally. There is no pelvocaliectasis or ureterectasis. Stomach and bowel: Stomach is incompletely distended. Rotation is normal. Proximal small bowel is mildly distended with air-fluid levels. Distention decreases distally. Ileocecal region is unremarkable. Appendix and terminal ileum are unremarkable. Colon is incompletely distended which limits evaluation. Appendix: See stomach and bowel PELVIS: Bladder: Bladder is most completely empty. Reproductive: Uterus is atrophic. There are no adnexal masses. ABDOMEN and PELVIS: Intraperitoneal space: There is a small amount of free fluid in the pelvis.There is no free air. Bones/joints: There are no acute osseous abnormalities. Soft tissues: unremarkable Vasculature: There are vascular calcifications. Lymph nodes: There is shotty adenopathy. IMPRESSION: Cardiomegaly and atherosclerotic disease; small pleural effusions with basilar airspace disease edema and/or infiltrate; hepatomegaly; bilateral renal atrophy; prominent common duct status post cholecystectomy; mild ileus, no obstruction; minimal free fluid in the pelvis Additional nonemergent findings as described above.
[2017-07-10] MEDS ORDERED: Sod Polystyrene Sulf 15 gm/60 ml Susp PO ONE (02:31)
--- NOTE | 2017-07-10 04:14 | CP.PCM.HP ---
History of Present Illness - History of Present Illness History of Present Illness: CC: SOB, Mid-Epigastric pain HPI: 57 year old female with a PMHx of HIV, AR, CAD w/ stent placement, Medical non-compliance, ESRD on dialysis (, , Fri), and chronic anemia who presents complaining of shortness of breath. Patient states she has been experiencing shortness of breath at rest, laying flat for the past 3 weeks. Patient indicates she has been vomiting for the past week, reporting yellow non-bilious vomit with occasional bright red blood. Patient indicates she has had a one week history of worsening symptoms. Patient indicates she also has dull, non- radiating mid-epigastric pain that is reproducible on palpation. Patient reports going to dialysis on Friday with full completion of session. Patient denies sharp chest pain, chest pressure, sharp chest pain, dizziness, syncope, inability to keep solids or fluids down, fever, chills, night sweats, diarrhea, constipation. Patient is noted to be cooperative with questioning but a poor historian in regards to her past medical history, significantly in regards to her HIV history. PMHx: HIV, AR, CAD with stents, Medical non-complaince, ESRD (, , Fri), chronic anemia PSHx: x 4, cholecystectomy, bartholin cyst removal, lef AV sunt, mrcp 05/08/16 Allergies: Jamir Inhibitors Social: 1PPD for 20 years, Quit 20 years ago. Denies Alcohol or illicit drug use Hos: Admitted for epigastric pain 3 weeks ago FamHx: Multiple family members with Heart Disease and Diabetes Meds: Reviewed PMD: Dr. Rubalcava. Present on Admission - Present on Admission Any Indicators Present on Admission: No Review of Systems - Constitutional Constitutional: absent: Chills, Fever Additional comments: Headache - EENT Eyes: absent: Blurred Vision, Change in Vision - Cardiovascular Cardiovascular: Dyspnea, Dyspnea on Exertion. absent: Claudication, Diaphoresis , Edema - Respiratory Respiratory: Cough, Dyspnea, Chest Congestion - Gastrointestinal Gastrointestinal: absent: Abdominal Pain, Belching, Bloating, Diarrhea - Genitourinary Genitourinary: absent: Change in Urinary Stream, Difficulty Urinating, Dysuria - Musculoskeletal Musculoskeletal: absent: Arthralgias, Muscle Weakness, Numbness - Neurological Neurological: Headaches. absent: Dizziness, Numbness, Focal Weakness, Loss of Vision, Weakness - Psychiatric Psychiatric: absent: Anxiety, Depression - Endocrine Endocrine: absent: Polyuria Past Patient History - Infectious Disease Hx of Infectious Diseases: None - Tetanus Immunizations Tetanus Immunization: Unknown - Past Medical History & Family History Past Medical History?: Yes - Past Social History Smoking Status: Never Smoked - CARDIAC Hx Cardiac Disorders: Yes (CAD, Mi, stents) Hx Heart Attack: Yes (3) Hx Hypertension: Yes - PULMONARY Hx Respiratory Disorders: No - NEUROLOGICAL Hx Neurological Disorder: Yes Hx Migraine: Yes - HEENT Hx HEENT Problems: No - RENAL Hx Chronic Kidney Disease: Yes Hx Dialysis: Yes (-fri) Date of Last Dialysis Treatment: 05/31/17 - ENDOCRINE/METABOLIC Hx Endocrine Disorders: Yes Hx Hypothyroidism: Yes - HEMATOLOGICAL/ONCOLOGICAL Hx Blood Disorders: Yes (blood transfusion) Hx Anemia: Yes - INTEGUMENTARY Hx Dermatological Problems: Yes (generalized body itch on and off) - MUSCULOSKELETAL/RHEUMATOLOGICAL Hx Falls: No - GASTROINTESTINAL Hx Gastrointestinal Disorders: Yes (peptic ulcer) Hx Gall Bladder Disease: Yes Other/Comment: esophageal ulcer, hx c dif 05/08/16 - GENITOURINARY/GYNECOLOGICAL Hx Genitourinary Disorders: (esrd, hd renal [employer] m w f) Hx Hematuria: Yes Hx Urinary Tract Infection: Yes - PSYCHIATRIC Hx Anxiety: Yes Hx Depression: Yes Hx Emotional Abuse: No Hx Physical Abuse: No Hx Substance Use: No (Used 25 Years Ago) - SURGICAL HISTORY Hx Appendectomy: Yes Hx Cardiac Catheterization: Yes Hx Section: Yes Hx Cholecystectomy: Yes Hx Coronary Stent: Yes Other/Comment: x4, excision bartholin cyst, right chest udall in and out, d&c, insertion and removal of peritoneal dialysis cyst, renal bx, left av shunt, mrcp - ANESTHESIA Hx Anesthesia: Yes Hx Anesthesia Reactions: No Hx Malignant Hyperthermia: No Meds Allergies/Adverse Reactions: Allergies Allergy/AdvReac Type Severity Reaction Status Date / Time JAMIR Inhibitors Allergy SWELLING Verified 07/09/17 21:31 Physical Exam - Constitutional Appears: Non-toxic - Head Exam Head Exam: ATRAUMATIC - Eye Exam Eye Exam: EOMI, PERRL - ENT Exam ENT Exam: Mucous Membranes Moist - Respiratory Exam Respiratory Exam: Rales (bilateral ), NORMAL BREATHING PATTERN - Cardiovascular Exam Cardiovascular Exam: Tachycardia, REGULAR RHYTHM, +S1, +S2 - GI/Abdominal Exam GI & Abdominal Exam: Guarding, Normal Bowel Sounds, Soft, Tenderness. absent: Distended, Firm, Rigid - Extremities Exam Extremities exam: Positive for: normal inspection, pedal pulses present - Back Exam Back exam: NORMAL INSPECTION. absent: CVA tenderness (L), CVA tenderness (R) - Neurological Exam Neurological exam: Alert, CN II-XII Intact, Normal Gait, Oriented x3 - Psychiatric Exam Psychiatric exam: Normal Affect, Normal Mood - Skin Skin Exam: Dry, Intact Results - Vital Signs Recent Vital Signs: Last Vital Signs Temp 98.1 F 07/09/17 21:34 Pulse 89 07/10/17 02:20 Resp 18 07/10/17 02:20 BP 152/89 H 07/10/17 02:20 Pulse Ox 96 07/10/17 02:20 - Labs Result Diagrams: 07/09/17 22:26 07/09/17 22:26 Labs: Laboratory Results - last 24 hr 07/09/17 07/09/17 07/09/17 22:26 22:26 22:26 WBC 7.4 D RBC 2.92 L Hgb 9.8 L Hct 31.7 L MCV 108.6 H MCH 33.6 MCHC 30.9 L RDW 15.6 H Plt Count 151 MPV 11.3 H PT 12.0 INR 1.05 APTT 36.0 Sodium 141 Potassium 6.5 H* D Chloride 94 L Carbon Dioxide 33 Anion Gap 21 H BUN 44 H Creatinine 9.2 H* Est GFR ( Amer) 5 Est GFR (Non-Af Amer) 4 POC Glucose (mg/dL) Random Glucose 114 H Calcium 9.4 Total Bilirubin 0.6 AST 42 H D ALT 39 Alkaline Phosphatase 101 Lactate Dehydrogenase 690 Total Creatine Kinase 46 Troponin I 0.03 D NT-Pro-B Natriuret Pep 68678 H Total Protein 8.7 H Albumin 4.0 Globulin 4.7 Albumin/Globulin Ratio 0.9 L Lipase 171 07/10/17 02:16 WBC RBC Hgb Hct MCV MCH MCHC RDW Plt Count MPV PT INR APTT Sodium Potassium Chloride Carbon Dioxide Anion Gap BUN Creatinine Est GFR ( Amer) Est GFR (Non-Af Amer) POC Glucose (mg/dL) 77 Random Glucose Calcium Total Bilirubin AST ALT Alkaline Phosphatase Lactate Dehydrogenase Total Creatine Kinase Troponin I NT-Pro-B Natriuret Pep Total Protein Albumin Globulin Albumin/Globulin Ratio Lipase Assessment & Plan - Assessment and Plan (Free Text) Assessment: 57 year old female with a PMHx of HIV, AR, CAD w/ stent placement, Medical non- compliance, ESRD on dialysis (T, Th, Sat), and chronic anemia who presents complaining of shortness of breath. Patient evaluated in ED and found to be with CHF exacerbation, pulmonary edema, hyperkalemia. Patient admitted for further medical obs and management. Plan: Mid-epigastric pain - Patient with significant cardiac history - Diff dx: esophagitis, GERD, costochondritis, ACS - Serial troponins - EKG showing sinus tachycardia without ST segment elevation/depression - EKG in AM - Continue home medications - Avoid narcotics Hyperkalemia - elevated K on admission - Insulin, glucose and kayexelate given in ED - Recheck K in AM labs - Patient asymptomatic, EKG without peaked T waves - Dialysis devaughn Thurs CHF - bilateral rales, elevated BNP, CXR with congestion - Dialysis for removal of fluid - Restart home meds ESRD - Dialysis T/R/Sa - Continue home medications Hx of Hypothyroidism - Continue home synthroid - Consider TSH Hx of HIV - Non compliant with meds - ast known CD4 66, Viral load unknown DVT/GI ppx - SCD - Protonix Case and plan discussed with attending - Date & Time Date: 07/10/17 Time: 04:11
[2017-07-10 05:49] LABS: BASO # 0.01 K/mm3 (0.0-2.0); BASO % 0.2 % (0.0-3.0); EOS % 0.4 % (1.5-5.0); GRAN # 2.93 (1.4-6.5); GRAN % 59.7 % (50.0-68.0); HEMOGLOBIN 9.2 g/dL (12.0-16.0); LYMPH # 1.3 (1.2-3.4); LYMPH % 27.1 % (22.0-35.0); MEAN CELL VOLUME 108.7 fl (80.0-105.0); MEAN CORPUSCULAR HEMOGLOBIN 33.5 pg (25.0-35.0); MEAN CORPUSCULAR HGB CONC 30.8 g/dl (31.0-37.0); MEAN PLATELET VOLUME 10.7 fl (7.0-11.0); MONO # 0.6 (0.1-0.6); MONO % 12.6 % (1.0-6.0); RBC 2.75 10^6/uL (3.5-6.1); RED CELL DISTRIBUTION WIDTH 15.7 % (11.5-14.5); WHITE BLOOD COUNT 4.9 10^3/ul (4.5-11.0)
[2017-07-10] MEDS ORDERED: Levothyroxine 25 MCG TAB PO SCH (06:00)
[2017-07-10 06:10] LABS: TROPONIN I 0.04 ng/mL
[2017-07-10 07:15] LABS: ALB/GLOB RATIO 0.8 (1.1-1.8); ALBUMIN 4.1 g/dL (3.0-4.8); CALCIUM 9.6 mg/dL (8.4-10.5)
[2017-07-10] MEDS ORDERED: Atovaquone 750 mg/5 ml Susp UD PO SCH (10:00)
[2017-07-10] MEDS ORDERED: DARUNAVIR 800 MG PO SCH (10:00)
[2017-07-10] MEDS ORDERED: Dolutegravir Sodium [Tivicay] 50 mg (HOME MED) PO SCH (10:00)
--- NOTE | 2017-07-10 13:08 | CON ---
DATE: 07/10/2017 GASTROENTEROLOGY CONSULT REASON FOR CONSULT: I have been asked to see this 57-year-old female with numerous [facility] hospitalizations over the last year with HIV positivity, chronic abdominal pain, end-stage renal disease, just recently discharged from [facility] 2 weeks ago, who comes to the hospital with recurrent abdominal pain, nausea, vomiting with some blood-streaked emesis. The patient states that she noticed streaks of blood in her emesis after vomiting several times. She denies any melena, diarrhea, fevers, chills, chest pain. She is currently asking for pain medications. The patient had an endoscopy on her last hospitalization which revealed esophageal candidiasis, hiatal hernia. There is question as to whether the patient is compliant with her HIV meds. PAST MEDICAL HISTORY: As above. She has a history of HIV positivity; end-stage renal disease, on hemodialysis; coronary artery disease with coronary artery stent placement; chronic anemia; esophageal candidiasis. PAST SURGICAL HISTORY: Notable for cholecystectomy, Bartholin cyst removal, . SOCIAL HISTORY: She is a former cigarette smoker, having smoked 1 pack of cigarettes per day for 20 years. She denies alcohol use. FAMILY HISTORY: Noncontributory. MEDICATIONS AT HOME: Include dolutegravir 50 mg daily, darunavir 100 mg daily, Mycelex Tejal 10 mg five times a day, Plavix 75 mg daily, PhosLo 667 mg three times a day, Mepron 750 mg b.i.d., Ecotrin 81 mg daily, Protonix 40 mg twice a day, Tamiflu suspension 30 mg daily, Lopressor 50 mg b.i.d., Reglan 10 mg daily as needed for nausea and vomiting, Synthroid 25 mcg daily, folic acid 1 mg daily, Diflucan 100 mg daily, Crestor 20 mg daily, MiraLax 17 g three times a day. Fourteen-point review of systems is notable for abdominal pain, nausea, vomiting and hematemesis. PHYSICAL EXAMINATION: GENERAL: Elderly female, lying in bed, in no acute distress. VITAL SIGNS: Reveal temperature of 98.2, blood pressure 140/78, heart rate 95. HEENT: Reveals sclerae to be white. Conjunctivae pink. NECK: Supple. CHEST: Reveal lungs to be clear. HEART: Exam reveals regular rate and rhythm. ABDOMEN: Soft. Mild diffuse tenderness. No rebound. No guarding. EXTREMITIES: Show no edema. She does have an AV shunt in her left arm. LABORATORY DATA: Revealed white blood cell count 4.9, hemoglobin 9.2. Chemistries reveal BUN 45, creatinine 10.7, phosphorus 6.8, magnesium 2.3, AST 48, ALT 33, total protein 9.1, lipase of 171. IMPRESSION: A 57-year-old female with chronic recurrent abdominal pain, end-stage renal disease, human immunodeficiency virus positivity, known esophageal candidiasis. The patient is currently requesting pain medications. Etiology of the abdominal pain is unclear, but this may be opioid seeking behavior. RECOMMENDATIONS: 1. Advance diet as tolerated. 2. Continue PPI. 3. Reglan 10 mg IV as needed. 4. No plans for any other GI workup at this time. Paul Snider MD
[2017-07-10] MEDS: POLYETHYLENE GLYCOL 3350 17 GM/Dose PACKET PO SCH (13:47)
[2017-07-10] MEDS: Pantoprazole 40 mg EC Tab PO SCH (13:47)
--- NOTE | 2017-07-10 17:22 | CARD ---
APPROVED REPORT EXAM: Two-dimensional and M-mode echocardiogram with Doppler and color Doppler. INDICATION Dyspnea 2D DIMENSIONS Left Atrium (2D)4.0 (1.6-4.0cm)IVSd1.2 (0.7-1.1cm) LVDd4.9 (3.9-5.9cm)PWd1.4 (0.7-1.1cm) LVDs4.1 (2.5-4.0cm)FS (%) 17.2 % LVEF (%)35.8 (>50%) M-Mode DIMENSIONS Aortic Root2.70 (2.2-3.7cm)Aortic Cusp Exc.1.70 (1.5-2.0cm) Aortic Valve AoV Peak Vglrbxvg242.0cm/Mehdi Peak GR.17mmHg Mitral Valve E/A ratio0.0 TDI E/Lateral E'0.0E/Medial E'0.0 Tricuspid Valve TR Peak [id number]/sRAP [id number] Peak Gr.47mmHg [id number] LEFT VENTRICLE The left ventricle is normal size. There is normal left ventricular wall thickness. The systolic function is moderately to severely impaired. There is global hypokinesis of the left ventricle. Transmitral Doppler flow pattern is Grade II-pseudonormal filling dynamics. No left ventricle thrombus noted on this study. There is no ventricular septal defect visualized. RIGHT VENTRICLE The right ventricle is normal size. There is normal right ventricular wall thickness. The right ventricular systolic function is normal. ATRIA The left atrium is borderline dilated. The right atrium is borderline dilated. AORTIC VALVE The aortic valve is moderately thickened. No aortic regurgitation is present. There is no aortic valvular stenosis. MITRAL VALVE The mitral valve is moderately thickened. Mitral regurgitation is moderate. TRICUSPID VALVE There is moderate tricuspid regurgitation. There is moderate pulmonary hypertension. PULMONIC VALVE There is mild pulmonic valvular regurgitation. GREAT VESSELS The aortic root is normal in size. The IVC is normal in size and collapses >50% with inspiration. <Conclusion> The left ventricle is normal size. There is normal left ventricular wall thickness. The systolic function is moderately to severely impaired. There is global hypokinesis of the left ventricle. Transmitral Doppler flow pattern is Grade II-pseudonormal filling dynamics. No left ventricle thrombus noted on this study. Mitral regurgitation is moderate. There is moderate tricuspid regurgitation. There is moderate pulmonary hypertension.
--- NOTE | 2017-07-10 17:48 | CARD ---
APPROVED REPORT EKG Measurement Heart [id number] [place] [id number] <Conclusion> Normal sinus rhythm Possible Left atrial enlargement Nonspecific T wave abnormality Prolonged QT Abnormal ECG
[2017-07-10] MEDS ORDERED: Pneumococcal 23-Valent Vaccine IM ONE (17:49)
[2017-07-10] MEDS ORDERED: Influenza Vaccine 60 mcg/0.5 mL SYR (4YR UP) IM ONE (17:49)
--- NOTE | 2017-07-10 17:51 | CARD ---
APPROVED REPORT EKG Measurement Heart [id number] [place] [id number] <Conclusion> Poor data quality, interpretation may be adversely affected Sinus tachycardia Otherwise normal ECG
--- NOTE | 2017-07-10 21:24 | HP ---
DATE OF EXAM: 07/10/2017 HISTORY OF PRESENT ILLNESS: The patient is admitted through the [facility] Emergency Room. Patient came to the Emergency Room late night hours. Patient was brought to the Emergency Room by the [facility]. Patient came from the home complaining of shortness of breath, chest pain. Patient was found to be hypoxic by the EMS at 90% room air saturation and patient was given oxygen, O2 sat increased to 96%. Patient vomited bile-colored vomiting. Patient also complains of hard stools and constipation. Patient was seen by Dr. Mason. Patient presented with chest pain, shortness of breath, nausea, abdominal pain, yellowish vomiting, also constipation and hard stools. CODE STATUS: Full code. LIVING WILL ADVANCE DIRECTIVE: None. HEIGHT: 5 feet 3 inches. WEIGHT: 127. BMI: 22.5. HOME MEDICATIONS: As per the home medication list: 1. Crestor 20 mg at bedtime. 2. Diflucan 100 mg daily. 3. Ecotrin 81 mg daily. 4. Folic acid 1 mg daily. 5. Lopressor 50 mg twice a day. 6. Mepron 750 mg twice a day. 7. MiraLax 17 g three times a day. 8. Mycelex Troches 10 mg five times a day. 9.. PhosLo 667 mg three times a day. 10. Plavix 75 mg daily. 11. Prezista 800 mg daily. 12. Protonix 40 mg twice a day. 13. Reglan 10 mg one to four times a day as needed. 14. Synthroid 25 mcg daily. 15. Tamiflu 30 mg. 16. Tivicay 50 mg daily. SOCIAL HISTORY: Positive for narcotic use not prescribed by me. Patient denies alcohol, denies smoking and drug use. MENSTRUAL HISTORY: Postmenopausal. OCCUPATIONAL HISTORY: Disabled. FAMILY HISTORY: Positive for hypertension and coronary artery disease. PAST MEDICAL AND SURGICAL HISTORY: History of severe noncompliance and poor compliance; history of gastritis; history of esophagitis; history of end-stage renal disease, hemodialysis dependent three times a week via the left upper extremity AV fistula; history of coronary artery disease; history of non-ST elevation myocardial infarction with multiple stenting; history of angina; history of dyslipidemia; history of oral thrush; history of hypertensive cardiovascular disease; noncompliant with medication; history of secondary hyperparathyroidism; history of gastroparesis; history of constipation; history of hypothyroidism; 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; history of left ventricular ejection fraction of 35% with pulmonary arterial hypertension with right ventricular systolic pressure of 57 mmHg; history of severely dilated right ventricle with [id number] reduced right ventricular systolic function; history of moderately dilated right atrium; history of calcified aortic valve; history of moderate mitral regurgitation; history of severe tricuspid regurgitation with elevated right ventricular systolic pressure of 57 mmHg; history of probable ischemic dilated cardiomyopathy with ejection fraction of 35%; history of coronary artery disease with patent stent in the left anterior descending, left circumflex and diagonal artery; history of 90% stenosis of the proximal PDA; history of proximal right coronary artery heavy calcification; history of successful angioplasty of two 90% lesions of the PDA; history of hypertension; history of hyperlipidemia; history of hypertriglyceridemia. Also significant for x4, history of Bartholin cyst surgery, history of right upper chest Uldall catheter placement and removal, history of peritoneal dialysis catheter placement and removal. PHYSICAL EXAMINATION: GENERAL: The patient was seen in the Emergency Room, then patient was seen in the dialysis. The patient is lying in the stretcher. The patient is awake, responsive. VITAL SIGNS: T-max 98.2. Telemetry shows initially sinus tachycardia, heart rate 127, down to 95, down to 89 beats per minute; blood pressure 155/96, 152/89, 140/78; respiration 18 to 20 to 24; O2 sat is 95%, 96%, 98% and 100%. HEENT: Head: Normocephalic, atraumatic. Eyes: Shows pinkish pale conjunctiva, anicteric sclerae. No oropharyngeal lesion. No neck rigidity. CHEST: Kyphosis. LUNGS: Shows questionable decreased breath sound at the bases, left more than the right. CARDIOVASCULAR: S1, S2, regular rhythm. Positive systolic murmur, left sternal border, right second intercostal space, left second intercostal space. ABDOMEN: Slightly protuberant,. Positive voluntary guarding. No rebound tenderness. GENITALIA: Female. RECTAL: Deferred. EXTREMITIES: Shows positive left upper extremity AV fistula, positive thrill. Lower extremity shows no pitting edema, no calf numbness, no Homans' sign. NEUROLOGIC: The patient is alert, awake, oriented x3. Able to move upper and lower extremity without assistance. Gait is not tested. Vascular: Palpable pulses in the lower extremity. Cranial nerves II through XII grossly limited. PSYCHIATRIC: Positive for history of depression and positive for narcotic use. DIAGNOSTICS: WBC 7.4 and 4.9, hemoglobin/hematocrit 9.8 and 31.7 and 9.2 and 29.9, MCV is 109, platelets 151 and 148. Normal differential. PT/PTT 12.0 and 36.0. Initial chemistry shows a potassium of 6.5. Repeat chemistry: Potassium 4.5, anion gap initially 21 and 22, BUN 44 and 45, creatinine 9.2 and 10.7, glucose 114 and 115, calcium 9.4 and 9.6, phosphorus 6.8, magnesium 2.3, AST 42 and 48. Troponin two sets 0.03 and 0.04. BNP 97,400. Chest x-ray was done in the Emergency Room, which shows cardiomegaly. Vascular congestion with increasing interstitial marking and vascular congestion with bibasilar atelectasis and effusion. The patient had a CT of the abdomen and pelvis, which shows cardiomegaly, hiatal hernia, bibasilar atelectasis and pleural effusion, hepatomegaly, prominent common bile duct, cholecystectomy noted, bilateral adrenal thickening, atrophic kidney, renovascular calcification, small bowel distention with possible ileus with colon with stool, atrophic uterus, shotty adenopathy. EKG shows baseline artifact, sinus tachycardia. Repeat EKG also shows sinus rhythm with ST-T changes. The patient was seen in the Emergency Room by Dr. Mason. Patient was treated for hyperkalemia with Kayexalate, albuterol 10 mg, dextrose 1 amp and patient was advised to be admitted. IMPRESSION: A 57-year-old extremely noncompliant and poorly compliant female, has stopped taking all her medications despite multiple hospitalizations and rehospitalization and multiple reinforcement and counseling with the patient and the patient's daughter, comes to the Emergency Room by [facility] ambulance complaining of shortness of breath, chest pain, vomiting, abdominal pain and constipation and hard stool. 1. Acute severely symptomatic hyperkalemia, probably secondary to noncompliance. 2. Possible volume overload and fluid overload with symptoms of shortness of breath and chest pain. 3. Hypoxemia secondary to above. 4. Possible gastroparesis. 5. Severe constipation. 6. Hypertension. 7. Tachycardia. 8. Macrocytic anemia. 9. End-stage renal disease, hemodialysis-dependent three times a week. 10. Non-hemolyzed hyperkalemia. 11. Systolic congestive heart failure with elevated BNP. 12. Sinus tachycardia. 13. Cardiomegaly. 14. Hiatal hernia. 15. Bilateral pleural effusions with bibasilar atelectasis. 16. Hepatomegaly. 17. Cholecystectomy with prominent common bile duct. 18. Pancreatic atrophy. 19. Bilateral adrenal gland thickening, left more than the right. 20. Bilateral renovascular calcification. 21. Uterine atrophy. 22. Abdominopelvic shotty lymphadenopathy. 23. Bilateral renal atrophy. 24. Mild ileus. 25. Bibasilar bilateral increased interstitial markings. 26. Poor compliance. 27. History of human immunodeficiency virus/acquired immune deficiency syndrome. 28. History of secondary hyperparathyroidism and hyperphosphatemia. 29. History of oral thrush. 30. History of hypertension. 31. History of . 32. History of hyperlipidemia and hypertriglyceridemia. 33. History of dyslipidemia. 34. History of constipation. 35. History of non-ST elevation myocardial infarction. 36. History of coronary artery disease, coronary angioplasty. 37. History of hypothyroidism. 38. History of esophageal ulceration. 39. History of gastroesophageal reflux. 40. History of right foot fracture. 41. History of polysubstance abuse use. 42. History of anxiety and depression. 43. History of multiple blood transfusions. PLAN: At this time, patient was treated for hyperkalemia in the Emergency Room. The patient's chemistry was repeated with normalization of the potassium. The patient has been admitted to telemetry observation. Serial labs have been ordered. Consultations with Cardiology, Psychiatry, Nephrology, Gastroenterology has been ordered. Referral to TCU ordered. The patient has been resumed on Prezista 800 mg daily, Tivicay 50 mg daily, Ecotrin 81 mg daily, folic acid 1 mg daily. Patient received treatment for hyperkalemia. The patient's Lopressor 50 mg twice a day resumed, Mepron 750 twice a day resumed, MiraLax 17 g three times a day ordered, Mycelex 10 mg troches five times a day ordered, PhosLo 667 mg with meals, Plavix 75 mg daily, Protonix 40 mg daily, Reglan will be given 5 mg IV q. 6 hours, Crestor 20 mg daily, Synthroid 25 mcg daily, Zofran 4 mg IV q. 4 p.r.n. At present, patient's Reglan has been changed to 5 mg IV q. 6 hours. At present, patient's further management will be dependent upon the patient's clinical condition, hemodynamic status and as per the patient response to therapeutic intervention, as per recommendation by Cardiology, Psychiatry, Nephrology and Gastroenterology.. The patient's case is referred to [facility] [employer] Technician for discharge planning. The patient has been advised strict compliance with medication and diet and followup. Patient has been placed on oxygen 2 L continuous humidified. Echo with Doppler has been ordered for evaluation of volume overload and fluid overload. The patient has been ordered head of the bed at 30 degrees, out of bed, HUNTER stockings, SCDs, occupational therapy, physical therapy. In addition, I have again reinforced and educated the patient about strict compliance with medication, diet and physician recommendations, which I have also emphasized to the patient and the patient's daughter in the recent office visit last week. Dictated and electronically signed, not read. Ranjith Rubalcava MD
--- NOTE | 2017-07-10 22:53 | CON ---
DATE: 07/10/2017 The patient is admitted for Dr. Rubalcava. REFERRING PHYSICIAN: Ranjith Rubalcava MD. REASON FOR CONSULTATION: To provide dialysis services for the patient admitted with chronic abdominal pain, nausea, vomiting, hyperkalemia and mild CHF. HISTORY OF PRESENT ILLNESS: The patient is a 57-year-old black female, known to me from inpatient care and outpatient dialysis. The patient has a history of end-stage renal disease, currently dialyzing at [facility] on a Friday, and Friday schedule, history of left upper extremity AV fistula. History of hypertension, ASHD, status post PTCA stents, history of secondary hyperparathyroidism; history of HIV, on (HAART) highly active antiretroviral therapy, history of anemia secondary to chronic kidney disease, hypothyroidism, chronic abdominal pain - on p.r.n. use of narcotic analgesics, who presents to the hospital with increased abdominal pain, nausea, vomiting, shortness of breath; hyperkalemia, K was 6.5 and mild CHF seen on chest x-ray. Patient is currently seen on dialysis. We are ultra-filtrating 1 to 1.5 kg as tolerated. PAST MEDICAL HISTORY: Significant for that of end-stage renal disease, on chronic maintenance hemodialysis; history of hypertension, history of ASHD, status post PTCA stents, secondary hyperparathyroidism, hypothyroidism, HIV, chronic abdominal pain with atrophic pancreatitis, status post cholecystectomy, history of anemia secondary to chronic kidney disease, left upper extremity AV fistula. MEDICATIONS AT HOME: Include that of Tivicay, Prezista, Mycelex, Plavix, PhosLo, Mepron, Ecotrin, Protonix, Lopressor, Reglan, Synthroid, folic acid, Crestor and MiraLax p.r.n. for constipation. ALLERGIES: THE PATIENT IS ALLERGIC TO MAVIS INHIBITORS. CURRENT MEDICATIONS IN HOSPITAL: Include that of Prezista, Tivicay, aspirin, folic acid, Lopressor,Mepron, MiraLax, Mycelex Tejal, PhosLo, Plavix, Protonix, Reglan, Crestor, Synthroid and Zofran p.r.n. SOCIAL HISTORY: Past history of cigarette smoking. No history of alcohol use. Patient is retired. FAMILY HISTORY: Positive for heart disease and diabetes. REVIEW OF SYSTEMS: GENERAL: The patient states decreased appetite secondary to chronic abdominal pain with progressive weight loss. ENT: Denies any hearing or visual problems. PULMONARY: Shortness of breath as noted above. No COPD, asthma, bronchitis or emphysema. CARDIAC: History of ASHD as noted above. No chest pains, no palpitations. GASTROINTESTINAL: Nausea, vomiting, abdominal pain as noted above. No diarrhea, no constipation presently. GENITOURINARY: Minimal urine output secondary to end-stage renal disease. GYNECOLOGIC: Postmenopausal. ENDOCRINE: History of hypothyroidism and history of secondary hyperparathyroidism. No history of diabetes. MUSCULOSKELETAL: No issues. NEUROLOGIC: No history of CVA, TIA, seizures or syncope. HEME/ONC: Positive for anemia secondary to chronic kidney disease. PSYCHIATRIC: History is negative. PHYSICAL EXAMINATION: GENERAL: The patient is currently seen on dialysis. VITAL SIGNS: Present blood pressure is 173/90 with a heart rate of 104. Temperature is 98.2. Respiratory rate is 17. Pulse ox is 95%. HEENT: Exam shows her to be normocephalic, atraumatic. Conjunctivae are pale. Sclerae are nonicteric. Pupils equal, reactive to light and accommodation. Extraocular muscles are intact. Posterior pharynx is normal. NECK: Supple. No neck vein distention. No thyromegaly. No lymphadenopathy. No bruits. CHEST: Clear to auscultation and percussion with slight decreased breath sounds at the bases. No rales, rhonchi or wheezing. CARDIOVASCULAR: Shows a regular rate and rhythm without audible murmurs, rubs or gallops. ABDOMEN: Mild tenderness to palpation mostly in the midepigastric area. No rebound or guarding. Bowel sounds slightly decreased. No masses appreciated. BACK: No CVAT. No spinal tenderness. EXTREMITIES: Show no cyanosis, clubbing or edema. She has a working AV fistula in left upper extremity, which is currently cannulated for dialysis. NEUROLOGIC: Shows her to be alert, oriented x3 with no gross focal motor or sensory deficits noted. LABORATORY DATA AND IMAGING: Admitting chest x-ray showed mild pulmonary edema with cardiomegaly. Admitting abdominal CT shows small bilateral pleural effusions status post gallbladder resection, partial ileus with an atrophic pancreas and kidneys seen, no acute findings otherwise. LABS: CBC; white blood cell count 7.4, repeat 4.9; hemoglobin down from 9.8 to 9.2. Platelet count is normal at 148,000. Coags are normal. Chemistries, initial potassium level was 6.5 upon arrival in the emergency room late last night. Patient was treated with insulin, D50 and Kayexalate, repeat potassium level today is 4.5. Initial potassium was not hemolyzed. BUN 45 with creatinine of 10.7. CO2 was 33. Glucose 115. Calcium 9.6. Elevated phosphorus at 6.8, magnesium 2.3. Mild elevation of her AST at 48. Bilirubin is normal. Albumin is 4.1, normal. Lipase was normal at 171. Amylase was not done. ASSESSMENT: 1. Recurrent admissions for this patient with chronic abdominal pain, nausea and vomiting. At this time, it was complicated with shortness of breath and mild congestive heart failure together with hyperkalemia. Patient will continue on p.r.n. pain medication for her abdominal pain. She will be seen by GI. There did not appear to be anything significant seen on an her abdominal CT scan. Patient has had multiple admissions for similar complaints in the past. She has had endoscopies and colonoscopies in the past. 2. End-stage renal disease. Patient will continue Friday, and Friday dialysis. In light of her congestive heart failure on chest x-ray, we will increase ultrafiltration to try and correct her mildly hypervolemic state. This is despite the patient's wishes to minimize ultrafiltration today with dialysis. 3. History of hypertension. Blood pressure is currently controlled on beta-iban therapy. Presently, mild elevation of systolic blood pressure, this should correct with removal of fluid. 4. ASHD status post percutaneous transluminal coronary angioplasty stents. Patient will be followed by cardiology during her hospitalization. Patient had been on Plavix in the outpatient setting. 5. History of secondary hyperparathyroidism. Elevated phosphorus level at 6.8. Patient will resume binder therapy. I am not certain about how compliant she was given her abdominal pain taking binders at home. Patient will also remain on a renal diet. 6. History of human immunodeficiency virus. Patient will continue highly active antiretroviral therapy under the guidance of her outpatient infectious disease specialist. 7. History of anemia. The patient will receive Aranesp per protocol. 8. Hypothyroidism. Patient will continue Levoxyl replacement therapy. PLAN: 1. Discussed with the patient the need to perhaps adjust her dry weight as she is eating less at home and her weight has been coming down. 2. We will try and increase ultrafiltration today in light of her mild CHF. 3. Patient was to have been placed on a 1.0 K bath; however, repeat potassium level came back to 4.5 and she will dialyze on a 2.0 K bath. 4. Continue renal diet and binder therapy. 5. GI evaluation for her chronic abdominal pain. Workup had been done in the past. 6. Continue statin therapy for her hyperlipidemia. 7. Continue HAART therapy for her HIV. 8. Try and minimize narcotic analgesics. Thank you for letting me partake and share in the care of our mutual patient. David Crump MD
[2017-07-11] MEDS: Pantoprazole 40 mg EC Tab PO SCH (10:20)
[2017-07-11] MEDS: POLYETHYLENE GLYCOL 3350 17 GM/Dose PACKET PO SCH ×2 (10:21→13:41)
[2017-07-11 11:37] VITALS: O2SAT 100
--- NOTE | 2017-07-11 12:09 | PN ---
DATE: 07/11/2017 SUBJECTIVE: The patient is lying in bed. She states she feels better. She states that her abdominal pain has almost completely resolved. She denies any nausea or vomiting. She denies any hematemesis. She denies any rectal bleeding or melena. PHYSICAL EXAMINATION VITAL SIGNS: Reveal temperature of 99.3, blood pressure 117/72, heart rate of 76. HEENT: Reveals sclerae to be white. Conjunctivae pale. NECK: Supple. CHEST: Lungs are clear. HEART: Reveals regular rate and rhythm. ABDOMEN: Soft, nontender. No mass. EXTREMITIES: Show no edema. She does have an AV shunt in her left arm. LABORATORY DATA: Reveals hemoglobin 9.2, white blood cell count 4.9. Chemistries reveal BUN 45, creatinine 10.7. CT scan of the abdomen and pelvis reveal cardiomegaly with small pleural effusions and basilar infiltrate, hepatomegaly, mild distention of proximal small bowel without any evidence of small-bowel obstruction and minimal free fluid in the pelvis. There is a mild dilatation of the common bile duct and absent gallbladder from prior cholecystectomy. IMPRESSION: 1. Chronic abdominal pain. 2. End-stage renal disease. 3. Hematemesis, probably from mucosal tear from vomiting. She has not had any further hematemesis and her CBC has remained stable. 4. Human immunodeficiency virus positivity. 5. Chronic anemia. 6. Probable cardiomyopathy with history of coronary artery disease. RECOMMENDATIONS: 1. Continue PPI and IV Reglan. 2. Continue soft renal diet. No further plans for endoscopy at this time. She did have an EGD several weeks ago, which revealed Cony esophagitis. The patient is stable from GI standpoint. Paul Snider MD
[2017-07-11 13:20] VITALS: BP 122/82; RESP 20; TEMP 97.6
[2017-07-11 14:15] VITALS: PULSE 72
--- NOTE | 2017-07-11 16:57 | PN ---
DATE: 07/11/2017 SUBJECTIVE: The patient is seen lying in bed. She is awake. She is alert. She complains of pain in her throat. She complains of pain in the retrosternal region. She complains of pain in the epigastric region. PHYSICAL EXAMINATION GENERAL: Elderly lady lying in bed. VITAL SIGNS: Blood pressure 122/82, heart rate 72, respiratory rate 16, temperature 97.6. HEENT: Normocephalic, atraumatic. NECK: Supple, no JVD. LUNGS: Bilateral equal air entry, no rales. CARDIAC: S1 and S2, regular rate and rhythm, no murmur, no rub. ABDOMEN: Soft, nondistended, nontender, bowel sounds present. EXTREMITIES: No lower extremity edema. INTAKE AND OUTPUT: Not charted. LABORATORY DATA: WBC 4.9, hemoglobin 9.2, hematocrit 30, platelets 148. Sodium 147, potassium 4.5, chloride 96, CO2 of 33, BUN 45, creatinine 10.7, glucose 115, calcium 9.6, phosphorus 6.8, magnesium 2.3, albumin 4.1. CURRENT MEDICATIONS: Bentyl, darunavir, Ecotrin, folic acid, Lopressor, MiraLax, clotrimazole, PhosLo, Plavix, Protonix, Reglan, Crestor, Synthroid, Zofran. ASSESSMENT: 1. Hyperkalemia, resolved. 2. Throat pain, retrosternal pain, epigastric pain, was found to have candidiasis last time. 3. Hypertension. 4. End-stage renal disease. 5. Human immunodeficiency virus. 6. Coronary artery disease. PLAN: 1. The patient had stable dialysis yesterday. 2. ? treatment with antifungal. 3. Continue PPI. 4. Continue antihypertensives. Meryl Shukla MD
--- NOTE | 2017-07-11 21:47 | CON ---
DATE: 07/11/2017 CARDIOLOGY CONSULTATION HISTORY OF PRESENT ILLNESS: The patient is a 57-year woman who presents with epigastric discomfort and hyperkalemia. Dialysis brought her potassium down from 6.5 to 4.5. PAST MEDICAL HISTORY: Notable for cardiomyopathy. In addition, she suffers from hypertension, hypercholesterolemia, and end-stage renal disease. The patient has previous HIV in the past. She denies angina or shortness of breath. REVIEW OF SYSTEMS: A 14-point review of systems reviewed. Other than her epigastric comfort, there are no cardiac symptoms noted. PHYSICAL EXAMINATION: VITAL SIGNS: Blood pressure is 127/73, heart rates in the 70s. NECK: Negative JVD. LUNGS: Without rales. HEART: Reveals S1 and S2. EXTREMITIES: Without edema. LABORATORY DATA: Reveals EKG is unremarkable. Potassium is down to 4.5. Troponins are unchanged from her previous x3. Hemoglobin is 9.2. IMPRESSION: 1. Atypical epigastric discomfort. 2. No evidence for acute coronary syndrome. 3. Dilated cardiomyopathy. 4. Anemia. 5. End-stage renal disease. 6. Hyperkalemia, which is now resolved. Given these findings, there are no further cardiac tests necessary. The patient is hemodynamically stable, we will discontinue telemetry today. From a cardiac perspective, there are no further plans for intervention. Derrick Tran MD
== END 2017-07-11 16:01 | disposition home or self-care (01) ==
LOC: ED 21:16 → ERH 07-10 02:22 → 3RSO 07-10 18:35
PROVIDERS: ADMIT Internal Medicine; ATTEND Internal Medicine
DX: E87.5 Hyperkalemia (principal); N18.6 End stage renal disease; B20 Human immunodeficiency virus [HIV] disease; I13.2 Hypertensive heart and chronic kidney disease with heart failure and with stage 5 chronic kidney disease, or end stage renal disease; I50.20 Unspecified systolic (congestive) heart failure; I25.10 Atherosclerotic heart disease of native coronary artery without angina pectoris; D63.1 Anemia in chronic kidney disease; K56.7 Ileus, unspecified; N25.81 Secondary hyperparathyroidism of renal origin; K31.84 Gastroparesis; Z99.2 Dependence on renal dialysis; F32.9 Major depressive disorder, single episode, unspecified; F41.9 Anxiety disorder, unspecified; K21.9 Gastro-esophageal reflux disease without esophagitis; E78.1 Pure hyperglyceridemia; E03.9 Hypothyroidism, unspecified; I42.0 Dilated cardiomyopathy; B37.81 Candidal esophagitis; K92.0 Hematemesis; K86.89 Other specified diseases of pancreas; K44.9 Diaphragmatic hernia without obstruction or gangrene; D53.9 Nutritional anemia, unspecified; I25.2 Old myocardial infarction; Z95.5 Presence of coronary angioplasty implant and graft; Z87.891 Personal history of nicotine dependence; Z91.14 Patient's other noncompliance with medication regimen
CPT/HCPCS: 71045; 74176; 80053; 82550; 82948; 83615; 83690; 83735; 83880; 84100; 84484; 85025; 85027; 85610; 85730; 93005; 93306; 96374; 96375; 96376; 97161; 97530; 99285; C9113; G0378; G8978; G8979; J1170; J1200; J2405; J2765

== ENCOUNTER 2017-08-09 16:24 | Inpatient (IN) | payer MEDICARE, OTHER ==
[2017-08-09 16:25] VITALS: BMI 21.0
[2017-08-09] MEDS ORDERED: Pantoprazole 40 MG in Sodium Chloride 0.9% 100 ML IV STA (16:49)
--- NOTE | 2017-08-09 16:58 | ED PDOC ---
Arrival/HPI - General Chief Complaint: Fever Time Seen by Provider: 08/09/17 16:29 Historian: Patient - History of Present Illness Narrative History of Present Illness (Text): 08/09/17 16:57 A 57 year old female presents to the emergency department complaining of abdominal pain, nausea, vomiting and headache. Patient reports abdominal pain developed two days ago, nausea and vomiting developed three days ago and severe headache began 5 days ago. Patient had dialysis treatment today and received two units of packed red blood cells and had a fever of 99.8. Patient is not making any urine. Denies any diarrhea, dizziness, weakness, numbness, tingling, chest pain, palpitations or any other complaints at this time. Patient is not a smoker or drinker. Time/Duration: < week, Other (2 days, 3 days, 5 days) Symptom Onset: Sudden Symptom Course: Unchanged Activities at Onset: Rest Associated Symptoms (Text): 08/09/17 17:11 Sent to the emergency department from dialysis for evaluation of low grade fever following packed red blood cell transfusion. For the last several days she has had abdominal pain nausea vomiting and headache. Patient reports that she usually receives morphine or Dilaudid for her pain. Patient has a history of narcotic abuse. Past Medical History - Provider Review Nursing Documentation Reviewed: Yes - Past History Past History: No Previous - Infectious Disease Hx of Infectious Diseases: None - Tetanus Immunization Tetanus Immunization: Unknown - Cardiac Hx Cardiac Arrhythmia: No Hx Congestive Heart Failure: No Hx Hypertension: Yes Hx Mitral Valve Prolapse: No Hx Pacemaker: No Hx Peripheral Edema: No - Pulmonary Hx Asthma: No Hx Bronchitis: No Hx Chronic Obstructive Pulmonary Disease (COPD): No Hx Emphysema: No Hx Pneumonia: Yes Hx Sleep Apnea: No - Neurological Hx Alzheimer's Disease: No Hx Dementia: No Hx Migraine: Yes Hx Parkinson's Disease: No Hx Seizures: No Hx Transient Ischemic Attacks (TIA): No - HEENT Hx HEENT Disorder: No - Renal Hx Renal Disorder: Yes Hx Kidney Stones: No - Endocrine/Metabolic Hx Hyperthyroidism: Yes (Hyperparathyroidism, pt not sure) Hx Hypothyroidism: Yes - Hematological/Oncological Hx Anemia: Yes Hx Sickle Cell Disease: No - Integumentary Hx Dermatological Disorder: Yes (generalized body itch on and off) - Musculoskeletal/Rheumatological Hx Arthritis: No Hx Fractures: Yes (r ft fx) - Gastrointestinal Hx Gall Bladder Disease: Yes Hx Pancreatitis: Yes - Genitourinary/Gynecological Hx Sexually Transmitted Diseases: Yes (HIV/AIDS) - Psychiatric Hx Anxiety: Yes Hx Depression: Yes Hx Substance Use: Yes - Surgical History Hx Appendectomy: Yes Hx Cholecystectomy: Yes Hx Coronary Stent: Yes - Anesthesia Hx Anesthesia: Yes Hx Anesthesia Reactions: No Hx Malignant Hyperthermia: No - Suicidal Assessment Feels Threatened In Home Enviroment: No Family/Social History - Physician Review Nursing Documentation Reviewed: Yes Family/Social History: No Known Family HX Smoking Status: Former Smoker Hx Alcohol Use: No Hx Substance Use: Yes Substance used: oxycodone and marijunna Hx Substance Use Treatment: No Allergies/Home Meds Allergies/Adverse Reactions: Allergies MAVIS Inhibitors Allergy (Verified 07/13/17 22:45) SWELLING Home Medications: Home Meds Medication Instructions Recorded Confirmed Calcium Acetate 667 mg PO DAILY 07/14/17 08/09/17 Levocetirizine Dihydrochloride 5 mg PO PRN PRN 07/14/17 08/09/17 [Xyzal] [id number]-3-[id number] Ethyl Esters 1 GM 1 gm PO BID 07/14/17 08/09/17 [Lovaza] Sulfamethoxazole/Trimethoprim 1 each PO MWF 07/14/17 08/09/17 [Bactrim Ds Tablet] Review of Systems - Physician Review All systems were reviewed & negative as marked: Yes - Review of Systems Constitutional: Fatigue. absent: Fevers Respiratory: absent: SOB, Cough, Sputum, Wheezing Cardiovascular: absent: Chest Pain, Palpitations Gastrointestinal: Abdominal Pain, Nausea, Vomiting. absent: Diarrhea Genitourinary Female: Other (Does not make urine.) Neurological: Headache. absent: Dizziness, Focal Weakness, Gait Changes Physical Exam Vital Signs Reviewed: Yes Vital Signs Temp Pulse Resp BP Pulse Ox 08/09/17 16:35 99.9 F H 84 18 170/86 H 96 Temperature: Afebrile Blood Pressure: Hypertensive Pulse: Regular Respiratory Rate: Normal Appearance: Positive for: Well-Appearing, Non-Toxic, Uncomfortable, Other (Pain out of proportion to her examination) Pain Distress: Mild Mental Status: Positive for: Alert and Oriented X 3 - Systems Exam Head: Present: Atraumatic, Normocephalic Pupils: Present: PERRL Extroacular Muscles: Present: EOMI Conjunctiva: Present: Normal Mouth: Present: Moist Mucous Membranes Pharnyx: No: ERYTHEMA, EXUDATE, TONSILS ENLARGED Neck: Present: Normal Range of Motion Respiratory/Chest: Present: Clear to Auscultation, Good Air Exchange. No: Respiratory Distress, Accessory Muscle Use Cardiovascular: Present: Regular Rate and Rhythm, Normal S1, S2. No: Murmurs Abdomen: Present: Tenderness (severe generalized tenderness with pain out of proportion to exam), Scars (surgical). No: Distention, Peritoneal Signs Back: Present: Normal Inspection Upper Extremity: Present: Normal Inspection. No: Cyanosis, Edema Lower Extremity: Present: Normal Inspection. No: Edema Neurological: Present: GCS=15, CN II-XII Intact, Speech Normal, Motor Func Grossly Intact, Normal Sensory Function, Normal Cerebellar Funct, Gait Normal Skin: Present: Warm, Dry, Normal Color. No: Rashes Psychiatric: Present: Alert, Oriented x 3, Normal Insight, Normal Concentration Medical Decision Making ED Course and Treatment: 08/09/17 16:55 Impression: A 57 year old female with abdominal pain, nausea, vomiting and headache. Plan: -- EKG -- Chest X-ray -- CT abd/pelvis -- labs -- Zofran, Protonix -- Reassess and disposition Progress Notes: Patient states she usually gets Morphine or Dilaudid. 08/09/17 17:13 EKG shows normal sinus rhythm rate approximately [address] or T-wave changes. 08/09/17 18:49 CT scan has been completed and is waiting for radiologist reading. CT Abdomen and Pelvis Without Intravenous Contrast IMPRESSION: 1. Hepatomegaly. 2. There is progressive free fluid within the pelvis. 3. A posterior disc protrusion is visualized at L5-S1 with moderate narrowing of the thecal sac and narrowing of both lateral recesses. 4. Mild enlarged inguinal lymph nodes are seen, without progression. A few mildly enlarged external iliac chain lymph nodes are also again visualized. 5. Patchy interstitial and airspace disease is identified within the lungs bilaterally, most significant in the right lower lobe. This is similar to the prior study. Small bilateral pleural effusions are again visualized. Clinical correlation and follow-up chest CT are recommended. 6. There is cardiomegaly. 7. Incidental/non-acute findings are described above. Dictated and Authenticated by: Calderon Garner MD 08/09/2017 6:58 PM Eastern Time ([place] & [place]) 08/09/17 19:05 Patient continues to ask for narcotic pain medication. I discussed with her that we would treat her pain with nonnarcotic pain medication as she has a history of substance abuse. A call has been placed to her PMD. 08/09/17 19:[address] on 's service for a regular observation bed for pancreatitis.. He knows the patient well and is aware of her narcotic abuse history. - Lab Interpretations Lab Results: 08/09/17 15:45 08/09/17 15:45 Lab Results 08/09/17 15:45: Sodium 137, Potassium 2.7 L* D, Chloride 94 L, Carbon Dioxide 35 H, Anion Gap 11, BUN 2 L, Creatinine 1.6 H, Est GFR ( Amer) 40, Est GFR (Non-Af Amer) 33, Random Glucose 101, Calcium 8.9, Total Bilirubin 0.8, AST 42 H, ALT 25, Alkaline Phosphatase 68, Lactate Dehydrogenase 510, Total Creatine Kinase 38, Troponin I 0.01 D, Total Protein 8.0, Albumin 3.6, Globulin 4.4, Albumin/Globulin Ratio 0.8 L, Amylase 224 H, Lipase 388 H 08/09/17 15:45: PT 12.2, INR 1.07, APTT 31.5 08/09/17 15:45: WBC 5.6, RBC 3.19 L, Hgb 9.9 L D, Hct 30.7 L, MCV 96.2 D, MCH 31.0, MCHC 32.2, RDW 18.0 H, Plt Count 86 L, MPV 10.4, Gran % 78.9 H, Lymph % ( Auto) 14.3 L, [place] % (Auto) 6.1 H, Eos % (Auto) 0.5 L, Baso % (Auto) 0.2, Gran # 4.40, Lymph # (Auto) 0.8 L, [place] # (Auto) 0.3, Eos # (Auto) 0.0, Baso # (Auto ) 0.01 I have reviewed the lab results: Yes - RAD Interpretation Radiology Orders: 08/09/17 16:49 ABD & PELVIS W/O PO OR IV CONT [CT] Stat 08/09/17 16:50 CHEST PORTABLE [RAD] Stat CT scan of the abdomen and pelvis as read by the ad radiologist shows no acute findings. Loading Inspector: Radiologist - EKG Interpretation Interpreted by ED Physician: Yes Type: 12 lead EKG - Medication Orders Current Medication Orders: Discontinued Medications Acetaminophen (Tylenol 325mg Tab) 650 mg PO STAT STA Stop: 08/09/17 18:59 Pantoprazole Sodium 40 mg/ (Sodium Chloride) 100 mls @ 400 mls/hr IV STAT STA Stop: 08/09/17 17:03 Last Admin: 08/09/17 17:48 Dose: 400 mls/hr eMAR Start Stop Document 08/09/17 17:48 GMD (Rec: 08/09/17 17:49 GMD [id number]) Intravenous Solution Start Date 08/09/17 Start Time 17:48 End Date 08/09/17 End time 18:03 Total Infusion Time 15 Ondansetron HCl (Zofran Inj) 4 mg IVP STAT STA Stop: 08/09/17 16:50 Last Admin: 08/09/17 17:17 Dose: 4 mg IVP Administration Document 08/09/17 17:17 GMD (Rec: 08/09/17 17:17 GMD [id number]) Charges for Administration # of IVP Administrations 1 - Scribe Statement The provider has reviewed the documentation as recorded by the Yanet Maldonado Provider Scribe Attestation: All medical record entries made by the Scribe were at my direction and personally dictated by me. I have reviewed the chart and agree that the record accurately reflects my personal performance of the history, physical exam, medical decision making, and the department course for this patient. I have also personally directed, reviewed, and agree with the discharge instructions and disposition. Disposition/Present on Arrival - Present on Arrival Any Indicators Present on Arrival: No History of DVT/PE: No History of Uncontrolled Diabetes: No Urinary Catheter: No History of Decub. Ulcer: No History Surgical Site Infection Following: None - Disposition Have Diagnosis and Disposition been Completed?: Yes Diagnosis: Renal failure, Pancreatitis, Vomiting, Abdominal pain, Opiate addiction, ESRD ( end stage renal disease), Human immunodeficiency virus Disposition: HOSPITALIZED Disposition Time: 19:15 Patient Plan: Observation Condition: FAIR Discharge Instructions (ExitCare): Human Immunodeficiency Virus and Acquired Immune Deficiency Syndrome (ED) Referrals: Ranjith Rubalcava MD [Primary Care Provider] - Follow up with primary Forms: [employer] (Indonesian)
[2017-08-09 17:24] LABS: BASO # 0.01 K/mm3 (0.0-2.0); BASO % 0.2 % (0.0-3.0); EOS % 0.5 % (1.5-5.0); GRAN # 4.4 (1.4-6.5); GRAN % 78.9 % (50.0-68.0); HEMOGLOBIN 9.9 g/dL (12.0-16.0); LYMPH # 0.8 (1.2-3.4); LYMPH % 14.3 % (22.0-35.0); MEAN CELL VOLUME 96.2 fl (80.0-105.0); MEAN CORPUSCULAR HGB CONC 32.2 g/dl (31.0-37.0); MEAN PLATELET VOLUME 10.4 fl (7.0-11.0); MONO # 0.3 (0.1-0.6); MONO % 6.1 % (1.0-6.0); RBC 3.19 10^6/uL (3.5-6.1); WHITE BLOOD COUNT 5.6 10^3/ul (4.5-11.0)
[2017-08-09 17:29] LABS: INR 1.07 (0.93-1.08); PARTIAL THROMBOPLASTIN TIME 31.5 Seconds (25.1-36.5); PROTHROMBIN TIME 12.2 SECONDS (9.4-12.5)
[2017-08-09 17:39] LABS: TROPONIN I 0.01 ng/mL
[2017-08-09 17:43] LABS: ALB/GLOB RATIO 0.8 (1.1-1.8); ALBUMIN 3.6 g/dL (3.0-4.8); CALCIUM 8.9 mg/dL (8.4-10.5)
--- NOTE | 2017-08-09 18:58 | CT ---
EXAM: CT Abdomen and Pelvis Without Intravenous Contrast EXAM DATE/TIME: 08/09/2017 4:49 PM CLINICAL HISTORY: The patient age is 57 years old and is female; Pain; Abdominal pain Facility exam id and description: Ct abdpelscon abd pelvis w/o po or iv cont TECHNIQUE: Axial computed tomography images of the abdomen and pelvis without intravenous contrast. All CT scans at this facility use one or more dose reduction techniques, viz.: automated exposure control; ma/kV adjustment per patient size (including targeted exams where dose is matched to indication; i.e. head); or iterative reconstruction technique. Coronal and sagittal reformatted images were created and reviewed. COMPARISON: CT - ABD PELVIS W/O PO OR IV CONT 2017-07-09 23:53 FINDINGS: Lung bases: Patchy interstitial and airspace disease is identified within the lungs bilaterally, most significant in the right lower lobe. This is similar to the prior study. Small bilateral pleural effusions are again visualized. Heart: There is cardiomegaly. ABDOMEN: Liver: Hepatomegaly. No hepatic masses visualized. The liver measures 18.9 cm in the craniocaudad dimension. Gallbladder and bile ducts: Surgical clips are identified within the gallbladder fossa, compatible with cholecystectomy. Pancreas: Normal contour. No ductal dilation. Spleen: No splenomegaly. Adrenals: There is thickening of the left adrenal gland. Kidneys and ureters: Severe bilateral renal atrophy is again visualized. No obstructing stones. No hydronephrosis. Stomach and bowel: Evaluation of bowel is limited by the absence of oral contrast. There is no significant bowel distention to suggest obstruction. Appendix: No findings to suggest acute appendicitis. PELVIS: Bladder: The bladder is decompressed, which limits evaluation. Reproductive: The uterus is stable in size. ABDOMEN and PELVIS: Intraperitoneal space: There is progressive free fluid within the pelvis. Bones/joints: A posterior disc protrusion is visualized at L5-S1 with moderate narrowing of the thecal sac and narrowing of both lateral recesses. Hypertrophic degenerative changes are noted within the spine. Vasculature: No abdominal aortic aneurysm. Atherosclerotic changes are visualized. Lymph nodes: Mild enlarged inguinal lymph nodes are seen, without progression. On the left side, this measures 2.2 x 0.8 cm. A few mildly enlarged external iliac chain lymph nodes are also again visualized, with fatty billy. Small retroperitoneal lymph nodes are visualized, without significant lymphadenopathy. IMPRESSION: 1. Hepatomegaly. 2. There is progressive free fluid within the pelvis. 3. A posterior disc protrusion is visualized at L5-S1 with moderate narrowing of the thecal sac and narrowing of both lateral recesses. 4. Mild enlarged inguinal lymph nodes are seen, without progression. A few mildly enlarged external iliac chain lymph nodes are also again visualized. 5. Patchy interstitial and airspace disease is identified within the lungs bilaterally, most significant in the right lower lobe. This is similar to the prior study. Small bilateral pleural effusions are again visualized. Clinical correlation and follow-up chest CT are recommended. 6. There is cardiomegaly. 7. Incidental/non-acute findings are described above.
[2017-08-09] MEDS ORDERED: Morphine 2 mg/ml ISec IVP STA (20:13)
[2017-08-09] MEDS ORDERED: Morphine 2 mg/2 mL syringe IVP STA (20:14)
[2017-08-09] MEDS ORDERED: DiphenhydrAMINE 50 mg/ml Inj IVP ONE (21:42)
[2017-08-09] MEDS ORDERED: Levocetirizine Dihydrochloride [Xyzal] 5 MG (HOME MED) PO PRN (21:54)
[2017-08-10] MEDS: Morphine 2 mg/2 mL syringe IVP PRN ×3 (00:37→08:40)
[2017-08-10] MEDS: Levothyroxine 25 MCG TAB PO SCH (06:13)
--- NOTE | 2017-08-10 08:10 | CP.PCM.HP ---
History of Present Illness - History of Present Illness History of Present Illness: (covering for Dr. Rubalcava) This is a 57 year old female with history of HTN, ESRD on hemodialysis, chronic systolic heart failure, HIV, NSTEMI and atrophic pancreas who presented to the ER with abdominal pain. Pain is in the epigastric area and started 3-4 days ago. She also complains of migraine headache and says that she felt nauseus and sensitivity to light since Friday. Present on Admission - Present on Admission Any Indicators Present on Admission: No History of DVT/PE: No History of Uncontrolled Diabetes: No Urinary Catheter: No Decubitus Ulcer Present: No Review of Systems - Constitutional Constitutional: absent: Chills, Fever - Cardiovascular Cardiovascular: absent: Chest Pain, Diaphoresis, Edema - Respiratory Respiratory: Dyspnea. absent: Cough, Wheezing - Gastrointestinal Gastrointestinal: As Per HPI Past Patient History - Infectious Disease Hx of Infectious Diseases: None - Tetanus Immunizations Tetanus Immunization: Unknown - Past Medical History & Family History Past Medical History?: Yes - Past Social History Smoking Status: Never Smoked - CARDIAC Hx Cardia Arrhythmia: No Hx Congestive Heart Failure: No Hx Hypertension: Yes Hx Mitral Valve Prolapse: No Hx Pacemaker: No Hx Peripheral Edema: No - PULMONARY Hx Asthma: No Hx Bronchitis: No Hx Chronic Obstructive Pulmonary Disease (COPD): No Hx Emphysema: No Hx Pneumonia: Yes Hx Sleep Apnea: No - NEUROLOGICAL Hx Alzheimer's Disease: No Hx Dementia: No Hx Migraine: Yes Hx Parkinson's Disease: No Hx Seizures: No Hx Transient Ischemic Attacks (TIA): No - HEENT Hx HEENT Problems: No - RENAL Hx Chronic Kidney Disease: Yes Hx Kidney Stones: No - ENDOCRINE/METABOLIC Hx Hyperthyroidism: Yes (Hyperparathyroidism, pt not sure) Hx Hypothyroidism: Yes - HEMATOLOGICAL/ONCOLOGICAL Hx Anemia: Yes Hx Sickle Cell Disease: No - INTEGUMENTARY Hx Dermatological Problems: Yes (generalized body itch on and off) - MUSCULOSKELETAL/RHEUMATOLOGICAL Hx Arthritis: No Hx Falls: No Hx Fractures: Yes (r ft fx) - GASTROINTESTINAL Hx Gall Bladder Disease: Yes Hx Pancreatitis: Yes - GENITOURINARY/GYNECOLOGICAL Hx Sexually Transmitted Disorders: Yes (HIV/AIDS) - PSYCHIATRIC Hx Anxiety: Yes Hx Depression: Yes - SURGICAL HISTORY Hx Appendectomy: Yes Hx Cholecystectomy: Yes Hx Coronary Stent: Yes - ANESTHESIA Hx Anesthesia: Yes Hx Anesthesia Reactions: No Hx Malignant Hyperthermia: No Meds Allergies/Adverse Reactions: Allergies Allergy/AdvReac Type Severity Reaction Status Date / Time MAVIS Inhibitors Allergy SWELLING Verified 07/13/17 22:45 Physical Exam - Constitutional Appears: No Acute Distress - Head Exam Head Exam: ATRAUMATIC, NORMOCEPHALIC - Respiratory Exam Respiratory Exam: Clear to Auscultation Bilateral, NORMAL BREATHING PATTERN - Cardiovascular Exam Cardiovascular Exam: REGULAR RHYTHM, +S1, +S2 - GI/Abdominal Exam GI & Abdominal Exam: Normal Bowel Sounds, Soft, Tenderness Additional comments: mild epigastric tenderness - Extremities Exam Extremities exam: Positive for: normal inspection - Neurological Exam Neurological exam: Alert, Oriented x3 Results - Vital Signs Recent Vital Signs: Last Vital Signs Temp 99 F 08/09/17 21:50 Pulse 80 08/09/17 21:50 Resp 20 08/09/17 21:50 BP 146/85 08/09/17 21:50 Pulse Ox 100 08/09/17 21:50 - Labs Result Diagrams: 08/09/17 15:45 08/09/17 15:45 Assessment & Plan - Assessment and Plan (Free Text) Assessment: Acute pancreatitis SOB HTN ESRD on HD Chronic systolic heart failure HIV H/O NSTEMI Plan: Patient is on the general medical floor with pancreatitis. She will be kept NPO and on IV fluids. She will be evaluated by Dr. Snider for gastroenterology. She is on Morphine as needed for pain. Awaiting repeat amylase and lipase. Patient would like to speak to a psychiatrist. Consult Dr. Cavazos. CT abd/pelvis shows patchy interstitial and air space disease, mostly in the right lower lobe with small pleural effusions. Patient is afebrile, but complains of shortness of breath. Will consult pulmonology. We will also consult Dr. Crump as he is her shield cleaner. She will continue dialysis three times a week as per renal.
[2017-08-10] MEDS: Dextrose 5%/0.45% NS 1,000 ML IV SCH ×3 (08:40→21:16)
--- NOTE | 2017-08-10 08:45 | RAD ---
HISTORY: ap COMPARISON: 07/09/2017 FINDINGS: LUNGS: No active pulmonary disease. PLEURA: No significant pleural effusion identified, no pneumothorax apparent. CARDIOVASCULAR: There is mild cardiomegaly. There is moderate vascular and interstitial congestion OSSEOUS STRUCTURES: No significant abnormalities. VISUALIZED UPPER ABDOMEN: Normal. OTHER FINDINGS: None. IMPRESSION: Mild cardiomegaly. Moderate vascular and interstitial congestion
[2017-08-10] MEDS: Dolutegravir Sodium [Tivicay] 50 mg (HOME MED) PO SCH (09:21)
[2017-08-10] MEDS: DARUNAVIR 800 MG PO SCH (09:21)
[2017-08-10 09:24] LABS: BASO # 0.01 K/mm3 (0.0-2.0); BASO % 0.2 % (0.0-3.0); EOS # 0.1 (0.0-0.7); EOS % 1.7 % (1.5-5.0); GRAN # 3.47 (1.4-6.5); HEMOGLOBIN 10.9 g/dL (12.0-16.0); LYMPH % 19.9 % (22.0-35.0); MEAN CELL VOLUME 98.5 fl (80.0-105.0); MEAN CORPUSCULAR HEMOGLOBIN 31.9 pg (25.0-35.0); MEAN CORPUSCULAR HGB CONC 32.3 g/dl (31.0-37.0); MEAN PLATELET VOLUME 10.3 fl (7.0-11.0); MONO # 0.3 (0.1-0.6); MONO % 6.2 % (1.0-6.0); RBC 3.42 10^6/uL (3.5-6.1); WHITE BLOOD COUNT 4.8 10^3/ul (4.5-11.0)
[2017-08-10] MEDS: Multivitamin Therapeutic Tab PO SCH (09:24)
[2017-08-10] MEDS: Omega-3-Acid Ethyl Esters 1 GM Cap PO SCH ×3 (09:24→19:01)
[2017-08-10] MEDS: Pantoprazole 40 mg EC Tab PO SCH ×3 (09:25→19:02)
[2017-08-10 09:36] LABS: ALB/GLOB RATIO 0.9 (1.1-1.8); ALBUMIN 3.9 g/dL (3.0-4.8)
[2017-08-10 09:59] LABS: HDL CHOLESTEROL 29 mg/dL (29-60)
[2017-08-10 10:09] LABS: LDL CHOLESTEROL 57 mg/dL (0-129)
[2017-08-10 10:23] LABS: FREE T4 1.22 ng/dL (0.78-2.19)
[2017-08-10] MEDS ORDERED: DiphenhydrAMINE 50 mg/ml Inj IVP ONE (11:01)
[2017-08-10] MEDS: HYDROmorphone 0.5 mg/0.5 ml ISec IVP PRN ×2 (12:44→19:48)
[2017-08-10] MEDS: DiphenhydrAMINE 50 mg/ml Inj IVP PRN (12:45)
--- NOTE | 2017-08-10 14:23 | CARD ---
APPROVED REPORT EKG Measurement Heart [id number] <Conclusion> Normal sinus rhythm with sinus arrhythmia Possible Left atrial enlargement Left ventricular hypertrophy Nonspecific ST and T wave abnormality Prolonged QT Abnormal ECG
--- NOTE | 2017-08-10 20:07 | CON ---
DATE: 08/10/2017 HISTORY OF PRESENT ILLNESS: I saw Ms. Perea this morning. She is a 57-year-old black female with past medical history of end-stage renal disease, on dialysis treatments Friday, and Friday; history of failed peritoneal dialysis; hypertension; systolic heart failure; HIV, atrophic pancreatitis; coronary artery disease, admitted with complaints of abdominal pain, nausea and vomiting roughly for about a week prior to admission. The patient also has a history of cholecystectomy in the recent past. The patient denied any hematemesis or rectal bleeding. The patient indicated that over the past several days pain escalated to the point where she could not handle it at home, unable to take anything by mouth, also complains of severe headache. PHYSICAL EXAMINATION: VITAL SIGNS: I reviewed this patient's vital signs. HEENT: Significant for dry mouth. LUNGS: Decreased breath sounds, basilar on both sides up to about one-quarter of the apex. HEART: Irregular rhythm. ABDOMEN: Protuberant and tender right lower quadrant, mildly tender in the periumbilical area. [id number] tenderness in the left upper quadrant, left subcostal. LABORATORY DATA: I reviewed this patient's laboratory data. H and H 9/30, platelet count of 86. Coagulation within normal limits. Chemistry significant for hypokalemia, mild elevation of AST. Amylase lipase ratio of 324/388. Chest x-ray indicative of moderate vascularity and interstitial congestion with mild cardiomegaly. CT scan was significant for interstitial airspace disease bilaterally, more significant on the right side. Pleural effusions were noted as well as cardiomegaly. There was hepatomegaly as well as surgical clips in gallbladder fossa. Pancreas appeared normal without dilatation. No bowel obstruction noted. There was mildly enlarged lymph nodes noted especially on the left side. ASSESSMENT: This is a 57-year-old black female with history of severe end-stage renal disease, on dialysis. She has had several episodes of pancreatitis before. Notably, patient indicated that her triglycerides have been high. Most recent value I saw was roughly 270 indicated to me on a recent blood work done on an outpatient basis. I ordered a lipid panel for today on blood drawn or if QNS can be put in for tomorrow morning. The patient is currently on analgesics of 2 mg of morphine every 4 hours. She indicates this is suboptimal. I changed this over to Dilaudid 1 every 4 hours at patient's request. Hypokalemia will be corrected by consultants. Patient's numerous consultants ordered include Dr. Crump as well as Dr. Avila for renal disease and Pulmonary respectively. Patient is on pantoprazole as well as ondansetron. Patient also has Plavix on board. Consult written on behalf of Dr. Paul Snider, who will be back tomorrow. Viany Romo DO, PhD [facility]
[2017-08-11] MEDS: HYDROmorphone 0.5 mg/0.5 ml ISec IVP PRN ×4 (03:49→18:47)
[2017-08-11] MEDS: Levothyroxine 25 MCG TAB PO SCH (06:01)
[2017-08-11] MEDS: DiphenhydrAMINE 50 mg/ml Inj IVP PRN (06:01)
[2017-08-11 06:47] LABS: BASO # 0.01 K/mm3 (0.0-2.0); BASO % 0.2 % (0.0-3.0); EOS % 0.3 % (1.5-5.0); GRAN # 4.17 (1.4-6.5); GRAN % 63.1 % (50.0-68.0); HEMOGLOBIN 10.2 g/dL (12.0-16.0); LYMPH # 1.9 (1.2-3.4); MEAN CELL VOLUME 98.5 fl (80.0-105.0); MEAN CORPUSCULAR HEMOGLOBIN 31.3 pg (25.0-35.0); MEAN CORPUSCULAR HGB CONC 31.8 g/dl (31.0-37.0); MEAN PLATELET VOLUME 11.1 fl (7.0-11.0); MONO # 0.5 (0.1-0.6); MONO % 7.4 % (1.0-6.0); RBC 3.26 10^6/uL (3.5-6.1); RED CELL DISTRIBUTION WIDTH 17.8 % (11.5-14.5); WHITE BLOOD COUNT 6.6 10^3/ul (4.5-11.0)
[2017-08-11 07:28] LABS: ALB/GLOB RATIO 0.8 (1.1-1.8); ALBUMIN 3.5 g/dL (3.0-4.8); CALCIUM 8.4 mg/dL (8.4-10.5)
[2017-08-11 08:02] VITALS: RESP 18
[2017-08-11] MEDS: Multivitamin Therapeutic Tab PO SCH ×2 (08:15→12:02)
[2017-08-11] MEDS: Omega-3-Acid Ethyl Esters 1 GM Cap PO SCH ×2 (08:15→12:02)
[2017-08-11] MEDS: Pantoprazole 40 mg EC Tab PO SCH ×3 (08:16→18:00)
--- NOTE | 2017-08-11 08:16 | CP.PCM.PN ---
Subjective - Date & Time of Evaluation Date of Evaluation: 08/11/17 Time of Evaluation: 07:30 - Subjective Subjective: (covering for Dr. Rubalcava) Patient is seen this morning. She is feeling better although she still complains of some mild epigastric pain. Objective - Vital Signs/Intake and Output Vital Signs (last 24 hours): Temp Pulse Resp BP Pulse Ox 101.7 F H 101 H 18 109/72 98 08/11/17 08:01 08/11/17 08:01 08/11/17 08:01 08/11/17 08:01 08/11/17 08:01 - Medications Medications: Current Medications Aspirin (Ecotrin) 81 mg PO DAILY [facility] Last Admin: 08/10/17 09:24 Dose: 81 mg Atorvastatin Calcium (Lipitor) 80 mg PO HS [facility] Last Admin: 08/10/17 21:15 Dose: 80 mg Calcium Acetate (Phoslo) 667 mg PO WM [facility] Last Admin: 08/10/17 17:22 Dose: Not Given Clonazepam (Klonopin) 0.5 mg PO [facility] PRN Reason: Protocol Last Admin: 08/10/17 21:15 Dose: 0.5 mg Clopidogrel Bisulfate (Plavix) 75 mg PO DAILY [facility] Last Admin: 08/10/17 09:24 Dose: 75 mg Clotrimazole (Mycelex Tejal) 10 mg MT 5XD [facility] Last Admin: 08/11/17 05:58 Dose: Not Given Diphenhydramine HCl (Benadryl) 25 mg IVP Q4H PRN PRN Reason: Allergy symptoms Stop: 08/13/17 23:59 Last Admin: 08/11/17 06:01 Dose: 25 mg Folic Acid (Folic Acid) 1 mg PO DAILY [facility] Last Admin: 08/10/17 09:25 Dose: 1 mg Hydromorphone HCl (Dilaudid) 1 mg IVP Q4H PRN PRN Reason: Pain, severe (8-10) Stop: 08/13/17 23:59 Last Admin: 08/11/17 03:49 Dose: 1 mg Hydroxyzine HCl (Atarax) 25 mg PO BID PRN PRN Reason: Anxiety Dextrose/Sodium Chloride (Dextrose 5%/0.45% Ns 1000 Ml) 1,000 mls @ 80 mls/hr IV .[id number] [facility] Last Admin: 08/10/17 21:16 Dose: 80 mls/hr Levothyroxine Sodium (Synthroid) 25 mcg PO 0600 [facility] Last Admin: 08/11/17 06:01 Dose: 25 mcg Metoclopramide HCl (Reglan) 5 mg PO DAILY PRN PRN Reason: Nausea/Vomiting Last Admin: 08/11/17 03:56 Dose: 5 mg Metoprolol Tartrate (Lopressor) 50 mg PO BID [facility] Last Admin: 08/10/17 17:39 Dose: Not Given Multivitamins (Thera Tab) 1 tab PO DAILY [facility] Last Admin: 08/10/17 09:24 Dose: 1 tab Darunavir [Prezista] (800 Mg (Home Med)) 800 mg PO DAILY [facility] Last Admin: 08/10/17 09:21 Dose: Not Given Dolutegravir Sodium [Tivicay] 50 Mg ( Home Med) 50 mg PO DAILY [facility] Last Admin: 08/10/17 09:21 Dose: Not Given Levocetirizine Dihydrochloride [ Xyzal] 5 Mg (Home Med) 5 mg PO DAILY PRN PRN Reason: Allergy symptoms [id number] Ethyl Esters (Lovaza) 1 gm PO BID [facility] Last Admin: 08/10/17 19:01 Dose: Not Given Pantoprazole Sodium (Protonix Ec Tab) 40 mg PO BID [facility] Last Admin: 08/10/17 19:02 Dose: Not Given Paroxetine HCl (Paxil) 10 mg PO HS [facility] Last Admin: 08/10/17 21:15 Dose: 10 mg - Labs Labs: 08/11/17 06:15 08/11/17 06:15 PT 12.2 SECONDS (9.4-12.5) 08/09/17 15:45 INR 1.07 (0.93-1.08) 08/09/17 15:45 APTT 31.5 Seconds (25.1-36.5) 08/09/17 15:45 - Constitutional Appears: No Acute Distress - Head Exam Head Exam: ATRAUMATIC, NORMOCEPHALIC - Respiratory Exam Respiratory Exam: Clear to Ausculation Bilateral, NORMAL BREATHING PATTERN - Cardiovascular Exam Cardiovascular Exam: +S1, +S2 - GI/Abdominal Exam GI & Abdominal Exam: Soft, Normal Bowel Sounds. absent: Tenderness - Neurological Exam Neurological Exam: Alert, Awake, Oriented x3 Assessment and Plan - Assessment and Plan (Free Text) Assessment: Epigastric abdominal pain r/o pancreatitis/gastritis Fever HTN ESRD on HD chronic systolic heart failure HIV CAD Plan: Patient is seen this morning. Her abdominal pain is improving. Lipase is now normal. Amylase is trending downward. continue Protonix. Patient has developed a fever this morning of 101.7. will order consultation with infectious disease and blood cultures. CT abd/pelvis shows patchy interstitial and airspace disease in the right lower lobe; r/o pneumonia vs. chronic lung disease. Patient complains of shortness of breath. Awaiting pulmonology consult.
[2017-08-11] MEDS ORDERED: Vancomycin 1.5 GM in Sodium Chloride 0.9% 500 ML IVPB ONE (09:02)
--- NOTE | 2017-08-11 09:35 | PN ---
DATE: 08/11/2017 PULMONARY NOTE SUBJECTIVE: The patient appears comfortable this morning. She is not short of breath at rest. PHYSICAL EXAMINATION: VITAL SIGNS: Last temperature recorded is 97.9, pulse is 88, respiratory rate 18, blood pressure last recorded 117/80. Oxygen saturation on room air is 99%. HEENT: Normocephalic, atraumatic. NECK: No JVD. CARDIOVASCULAR: Systolic ejection murmur at the lower left sternal border. No S3 gallop. LUNGS: Minimal crackles at the bases. No rhonchi. No wheezing. EXTREMITIES: Positive for mild edema. No cyanosis, no clubbing. Calves are nontender to palpation. GI: Abdomen is soft. It is mildly distended and mildly tender to palpation. Bowel sounds are positive. SKIN: No acute rash. NEUROLOGIC: Exam limited at the present time. PERTINENT LABORATORY DATA: I did review the CAT scan of the abdomen and pelvis-done on 08/09/2017. I also reviewed the CAT scan of the abdomen and pelvis done on 05/31/2017. There are chronic mild interstitial changes noted at both lower lobes. There are also very small bilateral pleural effusions. Compared to the CAT scan done on 05/31/2017, the most recent CAT scan actually shows a slight decrease in the interstitial changes. There is certainly no worsening. IMPRESSION: 1. Acute pancreatitis. 2. End-stage renal disease. 3. Chronic congestive heart failure. 4. Coronary artery disease. 5. Chronic interstitial changes. 6. Anemia. PLAN: The patient appears very comfortable this morning. She is not short of breath at rest. She does state to feeling much better overall. On physical exam, there is no significant bronchospasm noted. In addition, there is no significant alveolar-arterial gradient. Oxygen saturation on room air is 99%. I did review the last two CAT scans-noted above. Compared to the previous CAT scan done on 05/31/2017, the most present CAT scan is actually mildly improved-with decreased interstitial changes at the bases. Keep in mind, the patient does have a long history of chronic congestive heart failure, and chronic renal disease. I would continue with the GI and Renal evaluations. Inputs are noted. The patient is feeling much better overall and is clinically improved. I will discuss the above with the attending physician this morning. David Avila MD [facility]
[2017-08-11] MEDS: DARUNAVIR 800 MG PO SCH (10:00)
[2017-08-11] MEDS: Dextrose 5%/0.45% NS 1,000 ML IV SCH (10:06)
--- NOTE | 2017-08-11 10:50 | CON ---
DATE: HISTORY OF PRESENT ILLNESS: The patient is a 57-year-old female who was admitted on the medical side for evaluation of abdominal pain, nausea, vomiting and headache. The patient has chronic kidney disease, end-stage renal disease and she is on hemodialysis. Psych consult was called for evaluation of possible depressive symptoms and the patient has history of mental illness and possible use of pain killers. The patient was seen and examined. The patient presented to be alert and oriented, pleasant. The patient reported that she was discharged from detox unit in July. She has followup appointments with Dr. Melgar, local psychiatrist. The patient reported that she had at times she feels depressed, but adamantly denied thoughts of harming herself or others. The patient reported that she has poor social support and she is staying home all day long. The patient reported that she is not hearing voices and not seeing things. The patient denied paranoid ideation and does not present to be psychotic. In regards of previous admissions to the psychiatric inpatient unit, the patient was discharged from the detox unit on 07/18 and medications, the patient was discharged on Vistaril 25 mg twice a day, multivitamins as well as trazodone 50 mg at the nighttime for depression and insomnia. Vital signs reviewed. Temperature 101.7, pulse is 101, blood pressure 109/72, respirations 18, oxygen saturation is 98. Medications reviewed. Aspirin, Lipitor, Phos-Lo, Klonopin 0.5 mg at the nighttime as needed for insomnia, Plavix, clotrimazole, Benadryl, folic acid, Dilaudid and Vistaril 25 mg twice a day as needed. The patient is on multivitamins, Lopressor, Lovaza, Protonix, Paxil 10 mg at the nighttime. Labs reviewed. Hemoglobin and hematocrit 10.2 and 32.1. Chemistry reviewed. Potassium is 4, BUN and creatinine 14 and 0.3, which is elevated. Amylase and lipase were elevated at the time of admission, today it is trending down. MENTAL STATUS EXAMINATION: The patient presented to be alert and oriented, pleasant, cooperative, intermittent eye contact. Speech was underproductive, low volume. Mood described as depressed. Affect was constricted. Thought process coherent and goal directed. Thought content, the patient denied visual, auditory, tactile hallucinations. Denied paranoid ideation. The patient denied thoughts of harming herself or others. Denied intent or plan. Insight and judgment seems to be fair. Impulses are well controlled. IMPRESSION: History of opioid addiction, rule out mood disorder due to general medical condition. The patient has chronic kidney disease; end-stage renal disease, on hemodialysis. PLAN: Continue current management. Continue current medication. Paxil was started by Dr. Ahmadi over this weekend. Vistaril can be continued. Trazodone can be resumed, but at the same time, Klonopin 0.5 mg was started by medical team. We will follow up and advise accordingly. Based on today's presentation, the patient does not meet the criteria for psych inpatient admission. We will follow up and advise accordingly. Thank you very much for letting me participate in care of your patient. Moreover, the patient has followup appointment with Dr. Melgar. If the patient needs to be discharged, there is no contraindication for that. The patient is not suicidal, not homicidal and has psychiatrist in the community. Thank you very much for letting me participate in care of your patient. Macy Almaraz MD
[2017-08-11] MEDS ORDERED: Piperacillin/Tazobact 2.25gm 2.25 GM/100 ML BAG IVPB SCH (12:00)
--- NOTE | 2017-08-11 12:16 | CP.PCM.CON ---
History of Present Illness - History of Present Illness History of Present Illness: 57 year old female with PMH of HIV and AIDS with last CD4 count 163 in 2015 , VL detectable, chronic renal failure on hemodialysis, coronary artery disease , history of UTI, history of esophageal ulcer, erosive gastritis, HTN, S/P cholecystectomy came in [place] [facility] [place] of abdominal pain / epigastric pain that started about 4 days ago, with some nausea but no vomiting, no diarrhea. In the ED, the patient is noted to have increase lipase and amylase levels and is being treated for pancreatitis. She then developed fevers over the last 24 hours and Infectious diseases consult is requested to further evaluate and manage. She currently is comfortable in bed, no headache or dizziness, no sore throat, no dysphagia or odynophagia, no rhinorrhea, no cough, no chest pain, no diarrhea. Review of Systems - Review of Systems All systems: reviewed and no additional remarkable complaints except (as per HPI ) Past Patient History - Infectious Disease Hx of Infectious Diseases: None - Tetanus Immunizations Tetanus Immunization: Unknown - Past Medical History & Family History Past Medical History?: Yes - Past Social History Smoking Status: Never Smoked - CARDIAC Hx Cardia Arrhythmia: No Hx Congestive Heart Failure: No Hx Hypertension: Yes Hx Mitral Valve Prolapse: No Hx Pacemaker: No Hx Peripheral Edema: No - PULMONARY Hx Asthma: No Hx Bronchitis: No Hx Chronic Obstructive Pulmonary Disease (COPD): No Hx Emphysema: No Hx Pneumonia: Yes Hx Sleep Apnea: No - NEUROLOGICAL Hx Alzheimer's Disease: No Hx Dementia: No Hx Migraine: Yes Hx Parkinson's Disease: No Hx Seizures: No Hx Transient Ischemic Attacks (TIA): No - HEENT Hx HEENT Problems: No - RENAL Hx Chronic Kidney Disease: Yes Hx Kidney Stones: No - ENDOCRINE/METABOLIC Hx Hyperthyroidism: Yes (Hyperparathyroidism, pt not sure) Hx Hypothyroidism: Yes - HEMATOLOGICAL/ONCOLOGICAL Hx Anemia: Yes Hx Sickle Cell Disease: No - INTEGUMENTARY Hx Dermatological Problems: Yes (generalized body itch on and off) - MUSCULOSKELETAL/RHEUMATOLOGICAL Hx Arthritis: No Hx Falls: No Hx Fractures: Yes (r ft fx) - GASTROINTESTINAL Hx Gall Bladder Disease: Yes Hx Pancreatitis: Yes - GENITOURINARY/GYNECOLOGICAL Hx Sexually Transmitted Disorders: Yes (HIV/AIDS) - PSYCHIATRIC Hx Anxiety: Yes Hx Depression: Yes - SURGICAL HISTORY Hx Appendectomy: Yes Hx Cholecystectomy: Yes Hx Coronary Stent: Yes - ANESTHESIA Hx Anesthesia: Yes Hx Anesthesia Reactions: No Hx Malignant Hyperthermia: No Meds Allergies/Adverse Reactions: Allergies Allergy/AdvReac Type Severity Reaction Status Date / Time MAVIS Inhibitors Allergy SWELLING Verified 07/13/17 22:45 - Medications Medications: Current Medications Aspirin (Ecotrin) 81 mg PO DAILY [facility] Last Admin: 08/11/17 08:15 Dose: 81 mg Atorvastatin Calcium (Lipitor) 20 mg PO DIN DOUGLAS Calcium Acetate (Phoslo) 667 mg PO WM [facility] Last Admin: 08/10/17 17:22 Dose: Not Given Clonazepam (Klonopin) 0.5 mg PO HS [facility] PRN Reason: Protocol Last Admin: 08/10/17 21:15 Dose: 0.5 mg Clopidogrel Bisulfate (Plavix) 75 mg PO DAILY [facility] Last Admin: 08/11/17 08:15 Dose: 75 mg Clotrimazole (Mycelex Tejal) 10 mg MT 5XD [facility] Last Admin: 08/11/17 05:58 Dose: Not Given Diphenhydramine HCl (Benadryl) 25 mg IVP Q4H PRN PRN Reason: Allergy symptoms Stop: 08/13/17 23:59 Last Admin: 08/11/17 06:01 Dose: 25 mg Folic Acid (Folic Acid) 1 mg PO DAILY [facility] Last Admin: 08/11/17 08:16 Dose: 1 mg Hydromorphone HCl (Dilaudid) 1 mg IVP Q4H PRN PRN Reason: Pain, severe (8-10) Stop: 08/13/17 23:59 Last Admin: 08/11/17 08:14 Dose: 1 mg Hydroxyzine HCl (Atarax) 25 mg PO BID PRN PRN Reason: Anxiety Dextrose/Sodium Chloride (Dextrose 5%/0.45% Ns 1000 Ml) 1,000 mls @ 80 mls/hr IV .[id number] [facility] Last Admin: 08/10/17 21:16 Dose: 80 mls/hr Vancomycin HCl 1.5 gm/ Sodium (Chloride) 500 mls @ 167 mls/hr IVPB ONCE ONE PRN Reason: Protocol Stop: 08/11/17 12:01 Piperacillin Sod/Tazobactam Sod (Zosyn 2.25 Gm In 0.9% 100 Ml) 2.25 gm in 100 mls @ 100 mls/hr IVPB Q6 [facility]AS PRN Reason: Protocol Stop: 08/18/17 12:01 Levothyroxine Sodium (Synthroid) 25 mcg PO 0600 [facility] Last Admin: 08/11/17 06:01 Dose: 25 mcg Metoclopramide HCl (Reglan) 5 mg PO DAILY PRN PRN Reason: Nausea/Vomiting Last Admin: 08/11/17 03:56 Dose: 5 mg Metoprolol Tartrate (Lopressor) 50 mg PO BID [facility] Last Admin: 08/11/17 08:16 Dose: 50 mg Multivitamins (Thera Tab) 1 tab PO DAILY [facility] Last Admin: 08/11/17 08:15 Dose: 1 tab Darunavir [Prezista] (800 Mg (Home Med)) 800 mg PO DAILY [facility] Last Admin: 08/10/17 09:21 Dose: Not Given Dolutegravir Sodium [Tivicay] 50 Mg ( Home Med) 50 mg PO DAILY [facility] Last Admin: 08/10/17 09:21 Dose: Not Given Levocetirizine Dihydrochloride [ Xyzal] 5 Mg (Home Med) 5 mg PO DAILY PRN PRN Reason: Allergy symptoms [id number] Ethyl Esters (Lovaza) 1 gm PO BID [facility] Last Admin: 08/11/17 08:15 Dose: 1 gm Pantoprazole Sodium (Protonix Ec Tab) 40 mg PO BID [facility] Last Admin: 08/11/17 08:16 Dose: 40 mg Paroxetine HCl (Paxil) 10 mg PO HS [facility] Last Admin: 08/10/17 21:15 Dose: 10 mg Physical Exam - Constitutional Appears: Non-toxic, Chronically Ill - Head Exam Head Exam: NORMAL INSPECTION - ENT Exam ENT Exam: Mucous Membranes Moist - Neck Exam Neck exam: Negative for: Lymphadenopathy, Meningismus - Respiratory Exam Respiratory Exam: Decreased Breath Sounds - Cardiovascular Exam Cardiovascular Exam: +S1, +S2 - GI/Abdominal Exam GI & Abdominal Exam: Soft, Tenderness (epigastric area). absent: Distended, Firm, Guarding, Rebound, Rigid Results - Vital Signs Recent Vital Signs: Last Vital Signs Temp 101.7 F H 08/11/17 08:01 Pulse 101 H 08/11/17 08:01 Resp 18 08/11/17 08:01 BP 109/72 08/11/17 08:01 Pulse Ox 98 08/11/17 08:01 - Labs Result Diagrams: 08/11/17 06:15 08/11/17 06:15 Labs: Laboratory Results - last 24 hr 08/10/17 08/10/17 08/10/17 09:00 09:00 09:00 WBC 4.8 RBC 3.42 L Hgb 10.9 L Hct 33.7 L MCV 98.5 MCH 31.9 MCHC 32.3 RDW 19.0 H Plt Count 87 L MPV 10.3 Gran % 72.0 H Lymph % (Auto) 19.[address] % (Auto) 6.2 H Eos % (Auto) 1.7 Baso % (Auto) 0.2 Gran # 3.47 Lymph # (Auto) 1.[address] [place] # (Auto) 0.3 Eos # (Auto) 0.1 Baso # (Auto) 0.01 Sodium 140 Potassium 3.7 Chloride 95 L Carbon Dioxide 36 H Anion Gap 14 BUN 11 Creatinine 5.0 H Est GFR ( Amer) 11 Est GFR (Non-Af Amer) 9 Random Glucose 100 Calcium 9.0 Total Bilirubin 0.8 AST 45 H ALT 30 Alkaline Phosphatase 70 Total Protein 8.5 H Albumin 3.9 Globulin 4.6 Albumin/Globulin Ratio 0.9 L Triglycerides 335 H Cholesterol 177 LDL Cholesterol Direct 57 HDL Cholesterol 29 Amylase Lipase 220 Free T4 TSH 3rd Generation 08/10/17 08/11/17 08/11/17 09:53 06:15 06:15 WBC 6.6 D RBC 3.26 L Hgb 10.2 L Hct 32.1 L MCV 98.5 MCH 31.3 MCHC 31.8 RDW 17.8 H Plt Count 82 L MPV 11.1 H Gran % 63.1 Lymph % (Auto) 29.0 [place] % (Auto) 7.4 H Eos % (Auto) 0.3 L Baso % (Auto) 0.2 Gran # 4.17 Lymph # (Auto) 1.9 [place] # (Auto) 0.5 Eos # (Auto) 0.0 Baso # (Auto) 0.01 Sodium 138 Potassium 4.0 Chloride 95 L Carbon Dioxide 33 Anion Gap 14 BUN 23 H Creatinine 7.1 H Est GFR ( Amer) 7 Est GFR (Non-Af Amer) 6 Random Glucose 109 Calcium 8.4 Total Bilirubin 0.9 AST 319 H D ALT 165 H Alkaline Phosphatase 78 Total Protein 7.7 Albumin 3.5 Globulin 4.2 Albumin/Globulin Ratio 0.8 L Triglycerides Cholesterol LDL Cholesterol Direct HDL Cholesterol Amylase 193 H Lipase 168 Free T4 1.22 TSH 3rd Generation 5.21 H Assessment & Plan - Assessment and Plan (Free Text) Plan: Assessment systemic inflammatory response syndrome, consider due to acute pancreatitis related to hypertriglyceridemia, R/O biliary tract disease history of Cony esophagitis with oral candidiasis HIV and AIDS, non-compliant with ART, last CD4 count 163 in 2015 history of Cdiff associated diarrhea history of left upper lobe HCAP erosive gastritis HTN chronic renal failure on hemodialysis coronary artery disease history of UTI history of esophageal ulcer S/P cholecystecomty Plan started a dose of IV Vancomycin and Zosyn pending blood cx; reviewed CT A/P - will order U/S of abdomen since liver enzymes are suddenly elevated - she has had cholecystectomy but may still be at risk for biliary stones - follow up GI recommendations discussed with Dr. Avila - no pneumonia noted on CXR or physical exam continue ART and PJP Prophylaxis
--- NOTE | 2017-08-11 13:04 | CON ---
DATE: 08/10/2017 HISTORY OF PRESENT ILLNESS: The patient is a 57-year-old female, arrived at the hospital for workup for abdominal pain. Psychiatry saw the patient for consultation as the patient requested to see a psychiatrist. I reviewed records and met with the patient at bedside this morning. Dr. Melgar met with patient on a consultation basis on 06/10/2016, 06/11/2016 and 06/12/2016. At that time, the patient presented with similar complaints of low mood, anxiety and a lot of difficulty sleeping. The patient was initially given Remeron; however, did not tolerate this medication, and then, given Klonopin 1 mg at bedtime to help her with her anxiety and sleep, which was very beneficial for her at that time. Trazodone was not started due to concerns about possibility . I met with this patient at bedside this morning and she reports that she generally has the same complaints that she presented with Dr. Melgar last year, and she has difficulty with sleeping, she has low mood, low energy, low frustration tolerance, she has anhedonia, she has lost weight because of poor appetite, and she is currently 119 pounds. She indicates that she gets frustrated. She has motivation on the things that she wants to do. Patient did not follow up with Dr. Melgar upon her discharge last year from the hospital; however, she is very open to following up with him in the unit and then again while she is hospitalized and/or following as an outpatient. The patient also reports that she anxious and contributes to her low self-esteem. In general, she feels overwhelmed, but she does not have any suicidal thoughts medication management regarding her psychiatric history Dr. Melgar on 3 occasions on a consultation basis on 06/10/2016, 06/11/2016 and 06/12/2016, and she was given Klonopin with good effect 1 mg at bedtime and she was given a script for 10 day supply she denies any prior history of psychiatric treatment or hospitalization. SOCIAL HISTORY: Patient was and she has custody of 2 grandchildren, who are 6 years old and 8 years old. She has a total of 4 grown children, . VITAL SIGNS: Reviewed by this provider. LABORATORY DATA: Also reviewed by this provider. MEDICATIONS: Relevant psychiatric medications given to the patient in the unit include Atarax 25 mg p.o. b.i.d. IMPRESSION: Major depressive disorder, moderate, no psychosis, anxiety disorder. RECOMMENDATIONS: 1. I discussed the treatment options for the patient and the patient is interested in medication management to help her with her symptoms. I reviewed the indications and benefits and possible side effects as well as therapeutic latency and dosing of Paxil, starting Paxil with the patient, at a dose of 10 mg at bedtime, and she is agreeable. The patient also is agreeable to restart Klonopin 1 mg at bedtime to help with anxiety as this was beneficial for her last year as well. 2. Psychiatry will continue to follow up patient on the medical floor to monitor her tolerance with the medications. I this information out to Dr. Almaraz as well as Dr. Melgar . Mary Jo Ahmadi MD
--- NOTE | 2017-08-11 13:05 | PN ---
DATE: 08/11/2017 SUBJECTIVE: The patient is sitting in bed. She still complains of diffuse abdominal pain. She is requesting pain medications before they are due [id number]. She denies any further nausea, vomiting. She denies rectal bleeding. CT scan of the abdomen and pelvis performed on admission to the hospital revealed hepatomegaly, free fluid in the pelvis, nonspecific inguinal lymph node enlargement without progression from prior CT scan scans and also, interstitial air space disease bilaterally, worse in the right lower lobe, similar to prior studies. OBJECTIVE VITAL SIGNS: Reveal temperature of 101.7, blood pressure 109/72, heart rate of 101. HEENT: Reveal sclerae to be white. Conjunctivae pale. NECK: Supple. CHEST: Reveal decreased breath sounds at the bases. HEART: Reveals a regular rate and rhythm. ABDOMEN: Soft. Mild diffuse tenderness with some voluntary guarding. No rebound. EXTREMITIES: Show no edema. LABORATORY DATA: Reveal white blood cell count 6.6, hemoglobin 10.2. Chemistries reveal BUN 23, creatinine 7.1, AST 319, ALT 165. IMPRESSION 1. Chronic recurrent abdominal pain requiring pain medications. The patient has elevated amylase and lipase. I do not believe that this is pancreatitis. She does have end-stage renal disease, on hemodialysis. CT scan of the abdomen and pelvis did not show any radiographic evidence of pancreatitis. 2. End-stage renal disease. 3. HIV positivity. 4. Rule out sepsis, systemic inflammatory response syndrome. RECOMMENDATIONS 1. We will continue n.p.o. 2. Continue PPI. 3. I will start the patient on IV Reglan 10 ml 5 mg before meals and at bedtime. 4. Continue antibiotics as per Infectious Disease. Paul Snider MD
--- NOTE | 2017-08-11 15:12 | US ---
HISTORY: rule out cholecystitis COMPARISON: None. TECHNIQUE: Sonographic evaluation of the abdomen. FINDINGS: LIVER: Measures 18.8 cm. Normal echogenicity of the liver parenchyma. No mass. No intrahepatic bile duct dilatation. GALLBLADDER: Removed COMMON BILE DUCT: Measures 13 mm. No stones. No dilatation. PANCREAS: Unremarkable as visualized. No mass. No ductal dilatation. RIGHT KIDNEY: Measures 4.3 x 1.9 x 3.0cm. Normal echogenicity. No calculus, mass, or hydronephrosis. LEFT KIDNEY: Measures 5.4 x 2.3 x 3.3cm. Normal echogenicity. No calculus, mass, or hydronephrosis. SPLEEN: Normal in size and contour. No mass. AORTA: No aneurysmal dilatation. IVC: Unremarkable. OTHER FINDINGS: Small right pleural effusion IMPRESSION: Renal atrophy. The gallbladder has been removed
--- NOTE | 2017-08-11 16:52 | CON ---
DATE: 08/10/2017 REASON FOR CONSULTATION: Nausea, vomiting, ESRD. HISTORY OF PRESENTING ILLNESS: A 57-year lady known to me from outpatient hemodialysis. The patient was receiving blood transfusion in the outpatient unit. Started vomiting. Complaining of epigastric pain. She was sent to the emergency room. In the emergency room, she was found to have elevated amylase and lipase 224 and 388. The patient was found to have severe epigastric pain. She was admitted. She is currently complaining of retrosternal burning. She is complaining of epigastric pain. She has no nausea right now. The patient denies any fevers, chills. She denies any shortness of breath. PAST MEDICAL AND SURGICAL HISTORY: Hypertension, ESRD, HIV, CAD, PTCA and stents, anemia of chronic kidney disease, C. diff colitis, recurrent abdominal pain, GERD, and secondary hyperparathyroidism. FAMILY HISTORY: Noncontributory. SOCIAL HISTORY: No smoking, no alcohol use, no IV drug abuse. ALLERGIES: MAVIS INHIBITORS. MEDICATIONS AT HOME: List reviewed. REVIEW OF SYSTEMS: All systems are reviewed, pertinent positives as mentioned in history of presenting illness, rest unremarkable. PHYSICAL EXAMINATION: GENERAL: Middle-aged lady lying in bed. VITAL SIGNS: Blood pressure 150/95, heart rate 85, respiratory rate 20, temperature 97.9, T-max 99.9. HEENT: Normocephalic, atraumatic, positive pallor. NECK: Supple, no JVD. LUNGS: Bilateral equal air entry, bilateral equal expansion, no rales. CARDIAC: S1 and S2, regular rate and rhythm, no murmur, no rub. ABDOMEN: Soft, nondistended, positive tenderness in the epigastrium, positive tenderness in the retrosternal region. Bowel sounds present. EXTREMITIES: No lower extremity edema. INTAKE AND OUTPUT: Not charted. LABORATORY DATA: WBC 4.8, hemoglobin 10.9, hematocrit 34, platelets 87. Sodium 140, potassium 3.7, chloride 95, CO2 of 36, BUN 11, creatinine 5, glucose 100, calcium 9. AST 45, ALT 30, albumin 3.9, lipase 220. ASSESSMENT: 1. Nausea and vomiting. 2. Mild pancreatitis. 3. Severe anemia. 4. Gastroesophageal reflux disease. 5. End-stage renal disease. 6. Human immunodeficiency virus. 7. Coronary artery disease. PLAN: 1. Continue PPI. 2. Monitor H and H. 3. GI evaluation. 4. Repeat LFTs and amylase and lipase. Thank you for the courtesy of this consultation. We will follow this patient with you. Meryl Shukla MD
--- NOTE | 2017-08-11 17:05 | PN ---
DATE: 08/11/2017 SUBJECTIVE: The patient is seen lying in bed. She is awake. She is alert. She reports she has some nausea. No vomiting. She also complains of some epigastric pain. PHYSICAL EXAMINATION: GENERAL: Elderly lady, lying in bed. VITAL SIGNS: Blood pressure 109/72, heart rate 101, respiratory rate 18, temperature 101.7. HEENT: Normocephalic, atraumatic. NECK: Supple, no JVD. LUNGS: Bilateral equal air entry, bilateral equal expansion. CARDIAC: S1 and S2, regular rate and rhythm, no murmur, no rub. ABDOMEN: Soft, nondistended, positive tenderness in the epigastrium, bowel sounds present. EXTREMITIES: No lower extremity edema. LABORATORY DATA: WBC 6.6, hemoglobin 10, hematocrit 32, platelets 82. Sodium 138, potassium 4.0, chloride 95, CO2 of 33, BUN 23, creatinine 7.1, glucose 109, calcium 8.4, AST 319, ALT 165, albumin 3.5, amylase 193, lipase 168. CURRENT MEDICATIONS: Atarax, Benadryl, Prezista, D5 half-normal saline at 80, Dilaudid, Tivicay, Ecotrin, folic acid, Klonopin, Xyzal, Lipitor, Lopressor 50 b.i.d., omega-3, Paxil, PhosLo, Plavix, Protonix, Reglan, Synthroid, Tylenol, Zosyn 2.25 every 6, vancomycin 1.5 g given this morning. ASSESSMENT: 1. Nausea, vomiting/epigastric pain. 2. Fevers. 3. Severe anemia. 4. Human immunodeficiency virus/acquired immune deficiency syndrome with last CD-4 count 163. 5. Coronary artery disease. 6. History of esophageal ulcer and erosive gastritis. PLAN: 1. Empiric antibiotics as per ID recommendations. 2. Dose all antibiotics for creatinine clearance less than 10 mL/minute. 3. Monitor H&H. 4. GI followup. 5. Continue PPI. 6. Liquid diet? Meryl Shukla MD
[2017-08-11] MEDS: Piperacillin/Tazobact 2.25gm 2.25 GM/100 ML BAG IVPB SCH (22:07)
[2017-08-12] MEDS: Levothyroxine 25 MCG TAB PO SCH (05:40)
[2017-08-12] MEDS: Piperacillin/Tazobact 2.25gm 2.25 GM/100 ML BAG IVPB SCH (05:42)
[2017-08-12 07:38] LABS: ALB/GLOB RATIO 0.8 (1.1-1.8); ALBUMIN 3.1 g/dL (3.0-4.8); CALCIUM 7.8 mg/dL (8.4-10.5)
--- NOTE | 2017-08-12 08:07 | CP.PCM.PN ---
Subjective - Date & Time of Evaluation Date of Evaluation: 08/12/17 Time of Evaluation: 07:15 - Subjective Subjective: (covering for Dr. Rubalcava) Patient is seen this morning. She has temperature of 102 this morning. she has been refusing Tylenol as per the nurse. Objective - Vital Signs/Intake and Output Vital Signs (last 24 hours): Temp Pulse Resp BP Pulse Ox 98.8 F 94 H 18 108/66 97 08/12/17 07:48 08/11/17 18:27 08/11/17 18:27 08/11/17 18:27 08/11/17 18:27 Intake and Output: 08/12/17 08/12/17 06:59 18:59 Intake Total 0 Output Total 0 Balance 0 - Medications Medications: Current Medications Acetaminophen (Tylenol 325mg Tab) 650 mg PO Q4H PRN PRN Reason: Fever >100.4 F Last Admin: 08/12/17 05:40 Dose: 650 mg Aspirin (Ecotrin) 81 mg PO DAILY [facility] Last Admin: 08/11/17 12:51 Dose: Not Given Atorvastatin Calcium (Lipitor) 20 mg PO DIN [facility] Calcium Acetate (Phoslo) 667 mg PO WM [facility] Last Admin: 08/11/17 17:45 Dose: Not Given Clonazepam (Klonopin) 0.5 mg PO HS [facility] PRN Reason: Protocol Last Admin: 08/11/17 22:07 Dose: 0.5 mg Clopidogrel Bisulfate (Plavix) 75 mg PO DAILY [facility] Last Admin: 08/11/17 12:01 Dose: Not Given Clotrimazole (Mycelex Tejal) 10 mg MT 5XD [facility] Last Admin: 08/12/17 05:41 Dose: Not Given Diphenhydramine HCl (Benadryl) 25 mg IVP Q4H PRN PRN Reason: Allergy symptoms Stop: 08/13/17 23:59 Last Admin: 08/11/17 06:01 Dose: 25 mg Folic Acid (Folic Acid) 1 mg PO DAILY [facility] Last Admin: 08/11/17 12:51 Dose: Not Given Hydromorphone HCl (Dilaudid) 1 mg IVP Q4H PRN PRN Reason: Pain, severe (8-10) Stop: 08/13/17 23:59 Last Admin: 08/11/17 18:47 Dose: 1 mg Hydroxyzine HCl (Atarax) 25 mg PO BID PRN PRN Reason: Anxiety Dextrose/Sodium Chloride (Dextrose 5%/0.45% Ns 1000 Ml) 1,000 mls @ 80 mls/hr IV .[id number] [facility] Last Admin: 08/11/17 10:06 Dose: 80 mls/hr Piperacillin Sod/Tazobactam Sod (Zosyn 2.25 Gm In 0.9% 100 Ml) 2.25 gm in 100 mls @ 100 mls/hr IVPB Q8 DOU[facility]AS PRN Reason: Protocol Last Admin: 08/12/17 05:42 Dose: 100 mls/hr Levothyroxine Sodium (Synthroid) 25 mcg PO 0600 [facility] Last Admin: 08/12/17 05:40 Dose: 25 mcg Metoclopramide HCl (Reglan) 5 mg IVP ACHS [facility] Last Admin: 08/11/17 22:07 Dose: 5 mg Metoprolol Tartrate (Lopressor) 50 mg PO BID [facility] Last Admin: 08/11/17 18:48 Dose: Not Given Multivitamins (Thera Tab) 1 tab PO DAILY [facility] Last Admin: 08/11/17 12:02 Dose: Not Given Darunavir [Prezista] (800 Mg (Home Med)) 800 mg PO DAILY [facility] Last Admin: 08/10/17 09:21 Dose: Not Given Dolutegravir Sodium [Tivicay] 50 Mg ( Home Med) 50 mg PO DAILY [facility] Last Admin: 08/10/17 09:21 Dose: Not Given Levocetirizine Dihydrochloride [ Xyzal] 5 Mg (Home Med) 5 mg PO DAILY PRN PRN Reason: Allergy symptoms [id number] Ethyl Esters (Lovaza) 1 gm PO BID [facility] Last Admin: 08/11/17 12:02 Dose: Not Given Pantoprazole Sodium (Protonix Ec Tab) 40 mg PO BID [facility] Last Admin: 08/11/17 12:02 Dose: Not Given Paroxetine HCl (Paxil) 10 mg PO HS [facility] Last Admin: 08/11/17 22:07 Dose: 10 mg - Labs Labs: 08/11/17 06:15 08/12/17 06:20 PT 12.2 SECONDS (9.4-12.5) 08/09/17 15:45 INR 1.07 (0.93-1.08) 08/09/17 15:45 APTT 31.5 Seconds (25.1-36.5) 08/09/17 15:45 - Constitutional Appears: No Acute Distress - Head Exam Head Exam: ATRAUMATIC, NORMOCEPHALIC - Respiratory Exam Respiratory Exam: Clear to Ausculation Bilateral, NORMAL BREATHING PATTERN - Cardiovascular Exam Cardiovascular Exam: Tachycardia, +S1, +S2 - GI/Abdominal Exam GI & Abdominal Exam: Soft, Tenderness, Normal Bowel Sounds Additional comments: mild epigastric tenderness - Extremities Exam Extremities Exam: Normal Inspection - Neurological Exam Neurological Exam: Alert, Awake, Oriented x3 Assessment and Plan - Assessment and Plan (Free Text) Assessment: Fever r/o sepsis/SIRS Epigastric abdominal pain Elevated liver enzymes HIV ESRD on HD CAD Plan: Patient is seen this morning. she has been spiking fevers of 101.7 to 102 since yesterday. Patient was seen by infectious disease and given one dose of Vancomycin and is on IV Zosyn. Patient has been seen by GI and pulmonary. CT findings are not new. Patient does not have pneumonia as per Dr. Avila. AST and ALT are rising. Awaiting blood cultures.
--- NOTE | 2017-08-12 09:00 | PN ---
DATE: 08/12/2017 PULMONARY NOTE SUBJECTIVE: The patient appears comfortable at rest. She is not short of breath. PHYSICAL EXAMINATION: VITAL SIGNS: Temperature is 102, pulse 94, respirations 18, blood pressure 108/66. Oxygen saturation on room air is 97-98%. HEENT: Normocephalic, atraumatic. No JVD. CARDIOVASCULAR: Systolic ejection murmur at the lower left sternal border. No S3 gallop. Lungs: Minimal crackles at the bases. No rhonchi. No wheezing. EXTREMITIES: Positive for mild edema. No cyanosis or clubbing. Calves are nontender to palpation. GI: Abdomen is soft. It remains distended and tender to palpation. Bowel sounds are positive. SKIN: No acute rash. NEUROLOGIC: Limited at the present time. IMPRESSION: 1. Acute pancreatitis. 2. End-stage renal disease. 3. Chronic congestive heart failure. 4. Coronary artery disease. 5. Chronic interstitial changes. 6. Anemia. PLAN: The patient appears comfortable this morning. She is not short of breath at rest. Other than her abdominal pain, she does state to feeling better overall. I also discussed the case with the night nurse at length. The night nurse confirms that he has not seen any signs of shortness of breath or cough from the patient - during his last shift. On physical exam, there is no significant bronchospasm noted. In addition, there is no significant alveolar-arterial gradient. Oxygen saturation on room air is 97-98%. GI and Renal evaluations are noted. A significant rise in the liver function tests were observed yesterday on laboratory exams. In addition, the procalcitonin was positive (3.93). However, the procalcitonin may be elevated in both septic states, as well as renal insufficiency. Again, I did review the CAT scan findings in yesterday's assessment. The CAT scan findings are not significantly changed from her previous CT scan. Thus, I do feel that her fevers are coming from an abdominal process. I would continue with the antibiotic coverage as per Infectious Disease. I did discuss the case with Dr. Conroy yesterday. The patient's overall status remains guarded. Again, repeat a.m. labs are pending. I will discuss the above with the attending physician. David Avila MD cc: ARMIDA
[2017-08-12] MEDS: HYDROmorphone 0.5 mg/0.5 ml ISec IVP PRN (09:06)
[2017-08-12] MEDS: Pantoprazole 40 mg EC Tab PO SCH ×3 (09:13→18:15)
[2017-08-12] MEDS: Omega-3-Acid Ethyl Esters 1 GM Cap PO SCH (09:13)
[2017-08-12] MEDS: Multivitamin Therapeutic Tab PO SCH (09:13)
[2017-08-12] MEDS: Meropenem 500 MG in Sodium Chloride 0.9% 50 ML IVPB SCH (09:51)
[2017-08-12] MEDS: DiphenhydrAMINE 50 mg/ml Inj IVP PRN (09:52)
[2017-08-12] MEDS: Dolutegravir Sodium [Tivicay] 50 mg (HOME MED) PO SCH (10:00)
[2017-08-12 11:23] LABS: BASO # 0.01 K/mm3 (0.0-2.0); BASO % 0.1 % (0.0-3.0); EOS # 0.1 (0.0-0.7); EOS % 1.6 % (1.5-5.0); GRAN # 6.96 (1.4-6.5); GRAN % 86.2 % (50.0-68.0); HEMOGLOBIN 9.4 g/dL (12.0-16.0); LYMPH # 0.5 (1.2-3.4); LYMPH % 6.6 % (22.0-35.0); MEAN CORPUSCULAR HEMOGLOBIN 31.8 pg (25.0-35.0); MEAN CORPUSCULAR HGB CONC 32.1 g/dl (31.0-37.0); MEAN PLATELET VOLUME 11.3 fl (7.0-11.0); MONO # 0.4 (0.1-0.6); MONO % 5.5 % (1.0-6.0); RBC 2.96 10^6/uL (3.5-6.1); RED CELL DISTRIBUTION WIDTH 17.2 % (11.5-14.5)
[2017-08-12 11:47] LABS: HEPATITIS B SURFACE AG Negative (NEGATIVE)
[2017-08-12 11:52] LABS: HEPATITIS A IGM NEGATIVE (NEGATIVE)
[2017-08-12 11:53] LABS: WHITE BLOOD COUNT 8.1 10^3/ul (4.5-11.0)
[2017-08-12] MEDS ORDERED: DiphenhydrAMINE 50 mg/ml Inj IVP ONE (11:56)
[2017-08-12 12:05] LABS: HEPATITIS C ANTIBODY NEGATIVE (NEGATIVE)
[2017-08-12 12:41] LABS: HEPATITIS B CORE AB NEGATIVE (NEGATIVE)
--- NOTE | 2017-08-12 13:07 | PN ---
DATE: SUBJECTIVE: The patient is currently seen on dialysis. Blood pressure is borderline low. We are only removing 500 mL of fluid. Her p.o. intake has been minimal. She is only on a clear liquid diet. She still continues to complain of significant abdominal pain. MEDICATIONS: Medication list reviewed. The patient is currently on Tivicay, Xyzal, Atarax, Prezista, D5 half-normal saline 80 mL an hour, Dilaudid p.r.n., Ecotrin, folic acid, Klonopin, Lipitor, Lopressor, Lovaza, meropenem, Mycelex Tejal, Paxil, PhosLo, Plavix, Protonix, Reglan, Synthroid, multivitamins and Tylenol p.r.n. OBJECTIVE: INTAKE/OUTPUT: Not charted. VITAL SIGNS: Blood pressure currently 112/73, temperature T-max was 102. Currently she is 98.8. Pulse is 105 with a respiratory rate of 18. Oxygen saturation on her pulse ox is 94%. HEENT: Shows her to be normocephalic, atraumatic. Conjunctivae are pale. Sclerae are nonicteric. NECK: Supple. No neck vein distention. CHEST: Clear to auscultation and percussion. No rales, rhonchi or wheezing. CARDIOVASCULAR: Shows a regular rate and rhythm without audible murmurs, rubs or gallops. ABDOMEN: Soft, nondistended. Positive tenderness on palpation of her midepigastric area. No rebound or guarding. EXTREMITIES: Show cannulated left upper extremity AV fistula. No lower extremity cyanosis, clubbing or edema. LABORATORY DATA AND IMAGING: CBC today white blood cell count 66, hemoglobin 10.2, platelet count is 82,000. Chemistry show normal electrolytes. BUN 36 with creatinine of 9.7. Glucose 121. Calcium 7.8 with an albumin level of 3.1, corrects to normal. Phosphorus level is pending. AST is elevated at 575, ALT is elevated at 304. Influenza serologies are negative. Blood cultures are negative at 24 hours. ASSESSMENT: Intermittent nausea and vomiting and persistent midepigastric pain. No evidence for pancreatitis. Amylase and lipase are now normal and abdominal CT scan of the pancreas was normal. Notable significance liver enzymes are elevated. The patient is being followed by GI. Fever and possible sepsis. Patient's blood cultures to date are negative. She remains on IV antibiotic therapy. She is febrile. End-stage renal disease. The patient will continue routine dialysis on a Friday, , Friday schedule. History of human immunodeficiency virus with acquired immunodeficiency syndrome. This was because of her chronic kidney disease. She remains on HAART therapy. History of atherosclerotic heart disease, currently stable. Past history of esophageal ulcer and erosive gastritis being evaluated by GI. The patient remains on protein pump inhibition therapy. History of anemia secondary to chronic kidney disease. History of secondary hyperparathyroidism. The patient had been on PhosLo in the outpatient setting. Her oral intake is currently nill. We will check her phosphorus level today and determine whether or not she needs to restart binder therapy. PLAN: 1. Continue routine dialysis as noted above. 2. Continue empiric antibiotic therapy, pending cultures. 3. Continue to minimize her exposure to pain medications. 4. Appreciate ID and GI followup. 5. Try and advance diet when tolerated. David Crump MD
--- NOTE | 2017-08-12 15:42 | US ---
HISTORY: sepsis, fluid in pelvis COMPARISON: None available. TECHNIQUE: Transabdominal and transvaginal pelvic ultrasound was performed. Caps FINDINGS: UTERUS: Measures 4.9 x 1.6 x 3.0 cm. Anteverted, normal in size and appearance. No fibroid or other mass lesion seen. ENDOMETRIUM: Measures 1.6 mm in diameter. Normal in appearance. CERVIX: No cervical abnormality identified. RIGHT OVARY: Not visualized. LEFT OVARY: Not visualized. FREE FLUID: There is moderate amount of free fluid in the pelvis. OTHER FINDINGS: None. IMPRESSION: Normal appearance of the uterus. Both ovaries are not visualized. Moderate amount of free fluid in the pelvis.
--- NOTE | 2017-08-12 15:43 | CP.PCM.PCO ---
Physician Communication Note - Physician Communication Note Physician Communication Note: pt was at HD today,as per RN pt did not verbalized HI/SI, will f/u tomorrow
--- NOTE | 2017-08-12 16:04 | PN ---
DATE: 08/12/2017 SUBJECTIVE: The patient states she is feeling better with less abdominal pain. She has not had any further nausea and vomiting. She is still spiking fevers. Her temperature this morning was 102. She denies any nausea, vomiting. Review of her most recent record showed that the patient was hospitalized approximately 3 weeks ago to [facility] for treatment for opiate withdrawal. At that time, she admitted to taking Percocets daily as well as using heroin. PHYSICAL EXAMINATION VITAL SIGNS: Reveal temperature of 98.8, T-max of 102, blood pressure 112/73, heart rate of 105. HEENT: Reveal sclerae to be white. Conjunctivae pink. NECK: Supple. CHEST: Reveal scattered rhonchi at the bases. HEART: Reveals a regular rate and rhythm. ABDOMEN: Soft. Mild diffuse tenderness. No rebound, no guarding. EXTREMITIES: Show no edema. LABORATORY DATA: Reveal BUN 36, creatinine 9.7, AST is up to 575, ALT 304. Her procalcitonin yesterday was 3.93. CBC reveals white blood cell count 6.6, hemoglobin 10.2. IMPRESSION 1. Chronic abdominal pain in a patient with opiate dependence. 2. Fever, rule out sepsis, rule out systemic inflammatory response syndrome. 3. Increasing liver enzymes may be related to sepsis. Her alkaline phosphatase and total bilirubin are normal, so I doubt that this is biliary sepsis. She has had a cholecystectomy in the past. 4. End-stage renal disease. 5. Human immunodeficiency virus positivity with noncompliance with human immunodeficiency virus medications. Note, her initial blood cultures are negative. RECOMMENDATIONS 1. Await hepatitis serology, note etiology of the rising liver enzymes are unclear. 2. We will advance the patient to a renal diet. 3. We will request a pelvic and transvaginal ultrasound as the patient did have increasing free fluid in the pelvis on CAT scan. Paul Snider MD
[2017-08-12] MEDS: DARUNAVIR 800 MG PO SCH (18:03)
[2017-08-13] MEDS: Dextrose 5%/0.45% NS 1,000 ML IV SCH ×2 (00:17→12:20)
[2017-08-13] MEDS: Levothyroxine 25 MCG TAB PO SCH (05:11)
[2017-08-13 07:50] LABS: ALB/GLOB RATIO 0.8 (1.1-1.8)
--- NOTE | 2017-08-13 08:08 | CP.PCM.PN ---
Subjective - Date & Time of Evaluation Date of Evaluation: 08/13/17 Time of Evaluation: 07:30 - Subjective Subjective: (covering for Dr. Rubalcava) Patient is seen this morning. She says she is feeling better. Objective - Vital Signs/Intake and Output Vital Signs (last 24 hours): Temp Pulse Resp BP Pulse Ox 98.8 F 85 18 118/68 100 08/12/17 17:00 08/12/17 17:00 08/12/17 17:00 08/12/17 17:00 08/12/17 17:00 Intake and Output: 08/13/17 08/13/17 06:59 18:59 Intake Total 240 Output Total 0 Balance 240 - Medications Medications: Current Medications Acetaminophen (Tylenol 325mg Tab) 650 mg PO Q4H PRN PRN Reason: Fever >100.4 F Last Admin: 08/12/17 11:12 Dose: 650 mg Aspirin (Ecotrin) 81 mg PO DAILY [facility] Last Admin: 08/12/17 10:00 Dose: 81 mg Atorvastatin Calcium (Lipitor) 20 mg PO DIN [facility] Last Admin: 08/12/17 16:09 Dose: 20 mg Calcium Acetate (Phoslo) 667 mg PO WM [facility] Last Admin: 08/12/17 18:15 Dose: Not Given Clonazepam (Klonopin) 0.5 mg PO HS [facility] PRN Reason: Protocol Last Admin: 08/13/17 00:18 Dose: Not Given Clopidogrel Bisulfate (Plavix) 75 mg PO DAILY [facility] Last Admin: 08/12/17 09:13 Dose: 75 mg Clotrimazole (Mycelex Tejal) 10 mg MT 5XD [facility] Last Admin: 08/13/17 05:11 Dose: Not Given Folic Acid (Folic Acid) 1 mg PO DAILY [facility] Last Admin: 08/12/17 09:13 Dose: 1 mg Hydromorphone HCl (Dilaudid) 4 mg PO Q4H PRN PRN Reason: Pain, severe (8-10) Stop: 08/13/17 16:09 Last Admin: 08/13/17 03:34 Dose: 4 mg Hydroxyzine HCl (Atarax) 25 mg PO BID PRN PRN Reason: Anxiety Dextrose/Sodium Chloride (Dextrose 5%/0.45% Ns 1000 Ml) 1,000 mls @ 80 mls/hr IV .[id number] [facility] Last Admin: 08/13/17 00:17 Dose: Not Given Meropenem 500 mg/ Sodium (Chloride) 50 mls @ 100 mls/hr IVPB DAILY [facility] PRN Reason: Protocol Last Admin: 08/12/17 09:51 Dose: 100 mls/hr Levothyroxine Sodium (Synthroid) 25 mcg PO 0600 [facility] Last Admin: 08/13/17 05:11 Dose: 25 mcg Metoclopramide HCl (Reglan) 5 mg IVP ACHS [facility] Last Admin: 08/13/17 07:57 Dose: 5 mg Metoprolol Tartrate (Lopressor) 50 mg PO BID [facility] Last Admin: 08/12/17 16:09 Dose: 50 mg Multivitamins (Thera Tab) 1 tab PO DAILY [facility] Last Admin: 08/12/17 09:13 Dose: 1 tab Darunavir [Prezista] (800 Mg (Home Med)) 800 mg PO DAILY [facility] Last Admin: 08/12/17 18:03 Dose: Not Given Dolutegravir Sodium [Tivicay] 50 Mg ( Home Med) 50 mg PO DAILY [facility] Last Admin: 08/12/17 10:00 Dose: Not Given Levocetirizine Dihydrochloride [ Xyzal] 5 Mg (Home Med) 5 mg PO DAILY PRN PRN Reason: Allergy symptoms [id number] Ethyl Esters (Lovaza) 1 gm PO BID [facility] Last Admin: 08/12/17 09:13 Dose: 1 gm Pantoprazole Sodium (Protonix Ec Tab) 40 mg PO BID [facility] Last Admin: 08/12/17 18:15 Dose: Not Given Paroxetine HCl (Paxil) 10 mg PO HS [facility] Last Admin: 08/13/17 03:35 Dose: Not Given - Labs Labs: 08/12/17 11:00 08/13/17 06:30 PT 12.2 SECONDS (9.4-12.5) 08/09/17 15:45 INR 1.07 (0.93-1.08) 08/09/17 15:45 APTT 31.5 Seconds (25.1-36.5) 08/09/17 15:45 - Constitutional Appears: No Acute Distress - Head Exam Head Exam: ATRAUMATIC, NORMOCEPHALIC - Respiratory Exam Respiratory Exam: Clear to Ausculation Bilateral, NORMAL BREATHING PATTERN - Cardiovascular Exam Cardiovascular Exam: +S1, +S2 - GI/Abdominal Exam GI & Abdominal Exam: Soft, Normal Bowel Sounds. absent: Tenderness - Extremities Exam Extremities Exam: Normal Inspection - Neurological Exam Neurological Exam: Alert, Awake, Oriented x3 Assessment and Plan - Assessment and Plan (Free Text) Assessment: r/o sepsis/SIRS Elevated liver enzymes HTN ESRD on HD chronic systolic heart failure HIV CAD Plan: Patient is feeling better this morning. She is afebrile and blood pressure has improved. continue antibiotics as per infectious disease. LFTs are elevated but trending downward. advance diet as per GI. Ultrasound is showing free fluid in the pelvis. Will consult gynecology.
[2017-08-13] MEDS: Omega-3-Acid Ethyl Esters 1 GM Cap PO SCH ×2 (09:15→17:11)
[2017-08-13] MEDS: Pantoprazole 40 mg EC Tab PO SCH ×2 (09:16→17:11)
[2017-08-13] MEDS: Multivitamin Therapeutic Tab PO SCH (09:16)
[2017-08-13] MEDS: DARUNAVIR 800 MG PO SCH (09:19)
--- NOTE | 2017-08-13 09:33 | PN ---
DATE: 08/13/2017 PULMONARY NOTE SUBJECTIVE: The patient appears comfortable this morning. She is not short of breath at rest. PHYSICAL EXAMINATION: VITAL SIGNS: (Last noted in the computer): Temperature is 98.8, pulse 85, respirations 18, blood pressure 118/68. Oxygen saturation on nasal cannula is 100%. HEENT: Normocephalic, atraumatic. No JVD. CARDIOVASCULAR: Systolic ejection murmur at the lower left sternal border. No S3 gallop. LUNGS: Minimal crackles at both bases. No rhonchi. No wheezing. EXTREMITIES: Positive for mild edema. No cyanosis or clubbing. Calves are nontender to palpation. GI: Abdomen is soft. It remains distended and tender to palpation. Bowel sounds are positive. SKIN: No acute rash. NEUROLOGIC: Limited at the present time. IMPRESSION: 1. Acute pancreatitis. 2. End-stage renal disease. 3. Chronic congestive heart failure. 4. Coronary artery disease. 5. Chronic interstitial changes. 6. Anemia. PLAN: The patient appears comfortable this morning. She is not short of breath at rest. She does state to less abdominal pain. She does state to feeling better overall. I did discuss the case with the night nurse at length. The night nurse stated that the patient had a good night. In addition, her temperatures are now resolving. I would continue with the antibiotic coverage as per Infectious Disease. Input by Dr. Conroy is noted. GI and Renal evaluations are also ongoing. Clinical status of the patient is definitely improving. However, her future status/prognosis does remain guarded. I will discuss the above with the attending physician. David Avila MD [facility]
--- NOTE | 2017-08-13 10:52 | CP.PCM.PN ---
Subjective - Date & Time of Evaluation Date of Evaluation: 08/12/17 Time of Evaluation: 10:20 - Subjective Subjective: Comfortable in bed, no more fevers, swallowing better, no nausea, no abdominal pain. Objective - Vital Signs/Intake and Output Vital Signs (last 24 hours): Temp Pulse Resp BP Pulse Ox 98.8 F 105 H 18 112/73 94 L 08/12/17 07:48 08/12/17 08:00 08/12/17 08:00 08/12/17 08:00 08/12/17 08:00 Intake and Output: 08/12/17 08/12/17 06:59 18:59 Intake Total 0 Output Total 0 Balance 0 - Medications Medications: Current Medications Acetaminophen (Tylenol 325mg Tab) 650 mg PO Q4H PRN PRN Reason: Fever >100.4 F Last Admin: 08/12/17 05:40 Dose: 650 mg Aspirin (Ecotrin) 81 mg PO DAILY [facility] Last Admin: 08/11/17 12:51 Dose: Not Given Atorvastatin Calcium (Lipitor) 20 mg PO DIN [facility] Calcium Acetate (Phoslo) 667 mg PO WM [facility] Last Admin: 08/12/17 09:13 Dose: 667 mg Clonazepam (Klonopin) 0.5 mg PO HS [facility] PRN Reason: Protocol Last Admin: 08/11/17 22:07 Dose: 0.5 mg Clopidogrel Bisulfate (Plavix) 75 mg PO DAILY [facility] Last Admin: 08/12/17 09:13 Dose: 75 mg Clotrimazole (Mycelex Tejal) 10 mg MT 5XD [facility] Last Admin: 08/12/17 05:41 Dose: Not Given Diphenhydramine HCl (Benadryl) 25 mg IVP Q4H PRN PRN Reason: Allergy symptoms Stop: 08/13/17 23:59 Last Admin: 08/11/17 06:01 Dose: 25 mg Folic Acid (Folic Acid) 1 mg PO DAILY [facility] Last Admin: 08/12/17 09:13 Dose: 1 mg Hydromorphone HCl (Dilaudid) 1 mg IVP Q4H PRN PRN Reason: Pain, severe (8-10) Stop: 08/13/17 23:59 Last Admin: 08/12/17 09:06 Dose: 1 mg Hydroxyzine HCl (Atarax) 25 mg PO BID PRN PRN Reason: Anxiety Dextrose/Sodium Chloride (Dextrose 5%/0.45% Ns 1000 Ml) 1,000 mls @ 80 mls/hr IV .[id number] [facility] Last Admin: 08/11/17 10:06 Dose: 80 mls/hr Meropenem 500 mg/ Sodium (Chloride) 50 mls @ 100 mls/hr IVPB Q12 [facility] PRN Reason: Protocol Stop: 08/19/17 09:31 Levothyroxine Sodium (Synthroid) 25 mcg PO 0600 [facility] Last Admin: 08/12/17 05:40 Dose: 25 mcg Metoclopramide HCl (Reglan) 5 mg IVP ACHS [facility] Last Admin: 08/12/17 09:07 Dose: 5 mg Metoprolol Tartrate (Lopressor) 50 mg PO BID [facility] Last Admin: 08/12/17 09:13 Dose: 50 mg Multivitamins (Thera Tab) 1 tab PO DAILY [facility] Last Admin: 08/12/17 09:13 Dose: 1 tab Darunavir [Prezista] (800 Mg (Home Med)) 800 mg PO DAILY [facility] Last Admin: 08/10/17 09:21 Dose: Not Given Dolutegravir Sodium [Tivicay] 50 Mg ( Home Med) 50 mg PO DAILY [facility] Last Admin: 08/10/17 09:21 Dose: Not Given Levocetirizine Dihydrochloride [ Xyzal] 5 Mg (Home Med) 5 mg PO DAILY PRN PRN Reason: Allergy symptoms [id number] Ethyl Esters (Lovaza) 1 gm PO BID [facility] Last Admin: 08/12/17 09:13 Dose: 1 gm Pantoprazole Sodium (Protonix Ec Tab) 40 mg PO BID [facility] Last Admin: 08/12/17 09:13 Dose: 40 mg Paroxetine HCl (Paxil) 10 mg PO HS [facility] Last Admin: 08/11/17 22:07 Dose: 10 mg - Labs Labs: 08/11/17 06:15 08/12/17 06:20 PT 12.2 SECONDS (9.4-12.5) 08/09/17 15:45 INR 1.07 (0.93-1.08) 08/09/17 15:45 APTT 31.5 Seconds (25.1-36.5) 08/09/17 15:45 - Constitutional Appears: Chronically Ill - Head Exam Head Exam: NORMAL INSPECTION - ENT Exam Additional comments: oral thrush improving - Respiratory Exam Respiratory Exam: Decreased Breath Sounds - Cardiovascular Exam Cardiovascular Exam: +S1, +S2 - GI/Abdominal Exam GI & Abdominal Exam: Soft. absent: Tenderness Assessment and Plan - Assessment and Plan (Free Text) Plan: Assessment systemic inflammatory response syndrome, consider due to acute pancreatitis related to hypertriglyceridemia, less likely biliary tract disease transaminitis R/O drug-induced oral candidiasis history of Cony esophagitis with oral candidiasis HIV and AIDS, non-compliant with ART, last CD4 count 163 in 2015 history of Cdiff associated diarrhea history of left upper lobe HCAP erosive gastritis HTN chronic renal failure on hemodialysis coronary artery disease history of UTI history of esophageal ulcer S/P cholecystecomty Plan blood cx are negative, patient has no more fever, no leukocytosis - will d/c antibiotics and observe; reviewed CT A/P and discussed with GI - unlikely biliary tract disease will monitor AST, ALT will continue Mycelex for the oral candidiasis discussed with Dr. Avila - no pneumonia noted on CXR or physical exam continue ART and PJP Prophylaxis
[2017-08-13] MEDS: Meropenem 500 MG in Sodium Chloride 0.9% 50 ML IVPB SCH (12:23)
[2017-08-13] MEDS: Dolutegravir Sodium [Tivicay] 50 mg (HOME MED) PO SCH (12:24)
--- NOTE | 2017-08-13 12:42 | PN ---
DATE: 08/13/2017 SUBJECTIVE: The patient is lying in bed, comfortable. Her abdominal pain continues to improve. She has tolerated solid foods. PHYSICAL EXAMINATION: VITAL SIGNS: Reveal temperature of 99.8, blood pressure 105/65. The patient has not had any fevers in 24 hours, blood pressure 105/65, heart rate 94. HEENT: Reveal sclerae to be white. Conjunctivae pale. NECK: Supple. CHEST: Reveal scattered rhonchi at the bases. HEART: Reveals regular rate and rhythm. ABDOMEN: Soft, nontender. No mass. EXTREMITIES: Show no edema. LABORATORY DATA: Reveal white blood cell count 8.1, hemoglobin 9.4. Chemistries reveal BUN 28, creatinine 6.3. AST is down to 438, ALT is down to 283. IMPRESSION: 1. Systemic inflammatory response syndrome with fever and negative blood cultures. 2. Chronic abdominal pain, improving. 3. End-stage renal disease on hemodialysis. 4. Human immunodeficiency virus positivity. 5. Anemia with thrombocytopenia. RECOMMENDATIONS: Continue supportive care. Her abdominal pain has essentially resolved and she is tolerating solid foods. The patient insists to be transferred to [facility]. Paul Snider MD
--- NOTE | 2017-08-13 12:43 | PN ---
DATE: FOLLOWUP NOTE SUBJECTIVE: The patient was seen and examined today. The patient remembered this proposal lead writer by name. The patient reported that her pain in stomach is much better. The patient reported that her depressive symptoms are still the same, but the patient adamantly denied thoughts of harming herself or others. The patient reported that she has poor appetite. The patient reported that she does not feel hopeless or helpless. The patient rated her depression 8/10. The patient said that she would like her medication to be adjusted. This proposal lead writer suggested Remeron to be initiated at the nighttime for insomnia as well as for depression as well as it will not excreted by kidney because the patient is on hemodialysis. Paxil suggested to be discontinued. The patient reported that her family is supportive. The patient said that she lives with her son and 2 granddaughters which are 6 and 8 at present moment. Her son is taking care of her 2 granddaughters. The patient said that she has custody over 2 granddaughters who lives with her. The patient said that she has future plans to raise them well. Vital signs seems to be stable. Temperature 99.8, pulse is 94, blood pressure 105/65, respirations 18, oxygen saturation is 95. Medications reviewed. Tylenol, aspirin, Lipitor, PhosLo, Klonopin 0.5 mg at the nighttime as needed for anxiety, Plavix, clotrimazole, dextrose, folic acid, Dilaudid, Vistaril 25 mg twice a day as needed for anxiety. The patient did not require any Vistaril. The patient is on meropenem, Reglan, Lopressor. Remeron 7.5 mg will be started. Benefits and alternatives discussed with the patient. Multivitamins. The patient also is on Prezista as well as Xyzal. The patient also is on Tivicay, Lovaza and Protonix. Labs reviewed. Most recently was from yesterday. MENTAL STATUS EXAMINATION: The patient appears to be depressed. Intermittent eye contact. Mood described "out of 10, I feel depressed approximately 8." Affect was constricted. Thought process goal directed. Thought content, the patient denied visual, auditory or tactile hallucinations. Denied paranoid ideation. The patient denied thoughts of harming herself or others. Denied intent or plan. Insight and judgment seems to be fair. Impulses are well controlled. IMPRESSION: Rule out mood disorder due to general medical condition, rule out anxiety disorder due to general medical condition. The patient has history of pain killers addiction. PLAN: This proposal lead writer discontinued Paxil. Started Remeron 7.5 mg at the nighttime for depression as well as for insomnia. Risks, benefits and alternatives discussed with the patient. The patient denied any thoughts of harming herself or others. Supportive therapy provided. This proposal lead writer will follow up on this patient and advise accordingly. The patient is on hemodialysis and 3 times a week. The patient reported that she has supportive family. Her son is there for her and she lives with the son. The patient has future oriented plans. This proposal lead writer will follow up and advise accordingly. Thank you very much for letting me participate in the care of your patient. Macy Almaraz MD
[2017-08-13 16:09] VITALS: TEMP 98.1; O2SAT 96
--- NOTE | 2017-08-13 16:48 | PN ---
DATE: 08/13/2017 SUBJECTIVE: The patient is seen lying in bed. She is complaining of severe pain in her upper abdomen and epigastric region. She denies any nausea or vomiting. She reported she had a bowel movement earlier, which had bright red blood in it. PHYSICAL EXAMINATION: GENERAL: Middle-aged lady lying in bed. VITAL SIGNS: Blood pressure 105/65, heart rate 94, respiratory rate 18, temperature 99.8, T-max is 102. HEENT: Normocephalic, atraumatic, positive pallor. NECK: Supple. No JVD. LUNGS: Bilateral equal air entry, bilateral equal expansion. CARDIAC: S1, S2, regular rate and rhythm. No murmur, no rub. ABDOMEN: Distended, soft, severe tenderness in the epigastric region, bowel sounds present. EXTREMITIES: No lower extremity edema. LABORATORY DATA: Sodium 137, potassium 3.8, chloride 97, CO2 of 30, BUN 28, creatinine 6.3, glucose 118, calcium 8, AST 438, ALT 283, albumin 3. Blood culture, no growth. CURRENT MEDICATIONS: Atarax, Prezista, D5 half normal saline at 80, Dilaudid, Tivicay, Ecotrin, folic acid, Klonopin, Lipitor, Lopressor 50 b.i.d., Lovaza, PhosLo with meals, Plavix, Protonix, Reglan, Remeron, Tylenol. ASSESSMENT: 1. Severe anemia. 2. Bright red blood per rectum now. 3. Systemic inflammatory response syndrome. 4. Severe epigastric pain. 5. Esophageal candidiasis. 6. Human immunodeficiency virus. 7. End-stage renal disease. 8. Anemia of chronic disease. PLAN: 1. Elevated LFTs, fevers, continue empiric antibiotics. 2. Monitor H and H. 3. Dialysis tomorrow. 4. GI followup. 5. ID followup. Meryl Shukla MD
[2017-08-13 17:18] VITALS: BP 100/65; PULSE 74
[2017-08-13] MEDS ORDERED: Atrop/Hyosc/Scopal/PB Elixir (120 ml) PO ONE (17:55)
== END 2017-08-13 21:23 | DRG 438 ==
LOC: ED 16:24 → ERH 19:13 → 5RNO 20:48 → OBSVTOIN 08-10 08:12
PROVIDERS: ADMIT Internal Medicine; ATTEND Internal Medicine
PROC: 5A1D70Z Performance of Urinary Filtration, Intermittent, Less than 6 Hours Per Day (ICD-10-PCS; principal; 2017-08-12)
DX: K85.90 Acute pancreatitis without necrosis or infection, unspecified (principal); B20 Human immunodeficiency virus [HIV] disease; N18.6 End stage renal disease; I13.2 Hypertensive heart and chronic kidney disease with heart failure and with stage 5 chronic kidney disease, or end stage renal disease; I50.22 Chronic systolic (congestive) heart failure; R65.10 Systemic inflammatory response syndrome (SIRS) of non-infectious origin without acute organ dysfunction; N25.81 Secondary hyperparathyroidism of renal origin; F11.20 Opioid dependence, uncomplicated; B37.0 Candidal stomatitis; B37.81 Candidal esophagitis; K62.5 Hemorrhage of anus and rectum; F32.1 Major depressive disorder, single episode, moderate; D63.1 Anemia in chronic kidney disease; E78.1 Pure hyperglyceridemia; D69.6 Thrombocytopenia, unspecified; E87.6 Hypokalemia; I25.10 Atherosclerotic heart disease of native coronary artery without angina pectoris; K29.60 Other gastritis without bleeding; G89.29 Other chronic pain; K21.9 Gastro-esophageal reflux disease without esophagitis; F41.9 Anxiety disorder, unspecified; R16.0 Hepatomegaly, not elsewhere classified; Z99.2 Dependence on renal dialysis; Z87.01 Personal history of pneumonia (recurrent); Z87.440 Personal history of urinary (tract) infections; Z87.19 Personal history of other diseases of the digestive system; I25.2 Old myocardial infarction; Z91.14 Patient's other noncompliance with medication regimen

== ENCOUNTER 2017-08-13 21:27 | Inpatient (IN) | payer OTHER ==
[2017-08-13 21:33] VITALS: BMI 22.6
[2017-08-13] MEDS ORDERED: Non Formulary Medication (Levocetirizine Dihydrochloride [Xyzal] 5 MG) PO PRN (21:33)
[2017-08-14] MEDS: Dextrose 5%/0.45% NS 1,000 ML IV SCH ×2 (01:01→12:26)
[2017-08-14] MEDS: Pantoprazole 40 mg EC Tab PO SCH ×2 (05:50→18:24)
[2017-08-14] MEDS: Levothyroxine 25 MCG TAB PO SCH (05:51)
[2017-08-14] MEDS ORDERED: Levothyroxine 25 MCG TAB PO SCH (06:00)
--- NOTE | 2017-08-14 08:29 | CP.PCM.HP ---
History of Present Illness - History of Present Illness History of Present Illness: 57 year old female with history of HIV, ESRD on hemodialysis, chronic systolic heart failure, coronary artery disease, and hypertension admitted to the acute floor for epigastric abdominal pain and fever. Patient is now admitted to the transitional care unit for physical therapy for deconditioning. Present on Admission - Present on Admission Any Indicators Present on Admission: No History of DVT/PE: No History of Uncontrolled Diabetes: No Urinary Catheter: No Decubitus Ulcer Present: No Review of Systems - Cardiovascular Cardiovascular: absent: Chest Pain, Diaphoresis, Dyspnea - Respiratory Respiratory: absent: Cough, Hemoptysis, Wheezing - Gastrointestinal Gastrointestinal: As Per HPI Past Patient History - Infectious Disease Hx of Infectious Diseases: None - Tetanus Immunizations Tetanus Immunization: Unknown - Past Medical History & Family History Past Medical History?: Yes - Past Social History Smoking Status: Never Smoked - CARDIAC Hx Cardiac Disorders: Yes (AK/Stent placement) Hx Hypertension: Yes - PULMONARY Hx Asthma: No Hx Bronchitis: No Hx Chronic Obstructive Pulmonary Disease (COPD): No Hx Emphysema: No Hx Pneumonia: Yes Hx Sleep Apnea: No - NEUROLOGICAL Hx Alzheimer's Disease: No Hx Dementia: No Hx Migraine: Yes Hx Parkinson's Disease: No Hx Seizures: No Hx Transient Ischemic Attacks (TIA): No - HEENT Hx HEENT Problems: No - RENAL Hx Renal Failure: Yes - ENDOCRINE/METABOLIC Hx Hypothyroidism: Yes - HEMATOLOGICAL/ONCOLOGICAL Hx Anemia: Yes Hx Sickle Cell Disease: No - INTEGUMENTARY Hx Dermatological Problems: Yes (generalized body itch on and off) - MUSCULOSKELETAL/RHEUMATOLOGICAL Hx Falls: No - GASTROINTESTINAL Hx Gall Bladder Disease: Yes Hx Pancreatitis: Yes - GENITOURINARY/GYNECOLOGICAL Hx Reproductive Disorders: Yes - PSYCHIATRIC Hx Anxiety: Yes Hx Depression: Yes - SURGICAL HISTORY Hx Appendectomy: Yes Hx Cholecystectomy: Yes Hx Coronary Stent: Yes - ANESTHESIA Hx Anesthesia: Yes Hx Anesthesia Reactions: No Hx Malignant Hyperthermia: No Meds Allergies/Adverse Reactions: Allergies Allergy/AdvReac Type Severity Reaction Status Date / Time MAVIS Inhibitors Allergy SWELLING Verified 08/13/17 22:37 Physical Exam - Constitutional Appears: No Acute Distress - Head Exam Head Exam: ATRAUMATIC, NORMOCEPHALIC - Respiratory Exam Respiratory Exam: Clear to Auscultation Bilateral, NORMAL BREATHING PATTERN - Cardiovascular Exam Cardiovascular Exam: REGULAR RHYTHM, +S1, +S2 - GI/Abdominal Exam GI & Abdominal Exam: Normal Bowel Sounds, Soft. absent: Tenderness - Neurological Exam Neurological exam: Alert, Oriented x3 Results - Vital Signs Recent Vital Signs: Last Vital Signs Temp 97.9 F 08/14/17 01:36 Pulse 72 08/14/17 01:36 Resp 20 08/14/17 01:36 BP 97/62 L 08/14/17 01:36 Pulse Ox Assessment & Plan - Assessment and Plan (Free Text) Assessment: Deconditioning ESRD on HD Chronic systolic heart failure HIV CAD Plan: Patient is admitted to the transitional care unit for physical therapy. She will continue her medications as taken on the floor. We will continue IV fluids as per blood pressure is still low. Dialysis three times a week as per nephrology. She will be seen by GI, Dr. Snider, Nephrology, Dr Crump/Dr Shukla, Dr Avila for pulmonary, Dr Cavazos, psychiatry and Dr. Conroy, Infectious disease platform consultant. We will also consult Dr. David, hematology, as her platelet level has dropped.
--- NOTE | 2017-08-14 08:29 | PN ---
DATE: 08/14/2017 PULMONARY NOTE SUBJECTIVE: The patient appears very comfortable this morning. She is not short of breath at rest. PHYSICAL EXAMINATION: VITAL SIGNS: (Last noted in the computer): Temperature is 97.9, pulse is 72, respirations 18/20, blood pressure 97/62. Oxygen saturation on room air is 96%. HEENT: Normocephalic, atraumatic. No JVD. CARDIOVASCULAR: Systolic ejection murmur at the lower left sternal border. No S3 gallop. LUNGS: Minimal crackles at both bases. No rhonchi. No wheezing. EXTREMITIES: Positive for mild edema. No cyanosis or clubbing. Calves are nontender to palpation. GI: Abdomen is soft. It is much less distended and tender to palpation. Bowel sounds are positive. SKIN: No acute rash. NEUROLOGIC: Limited at the present time. IMPRESSION: 1. Acute pancreatitis. 2. End-stage renal disease. 3. Chronic congestive heart failure. 4. Coronary artery disease. 5. Chronic interstitial changes. 6. Anemia. PLAN: The patient appears very comfortable this morning. She is not short of breath at rest. She states to less abdominal pain. She does state to feeling much better overall. On physical exam, there is no bronchospasm noted. In addition, the oxygen saturation on room air is 96%. Inputs by GI and Renal are noted. I would continue with the antibiotic coverage as per Infectious Disease. The temperatures have now resolved. The clinical status of this patient is significantly improved overall. She is now on the transitional unit-- where she will participate with physical therapy. In spite of her clinical improvement, her future status/prognosis does remain guarded. I will discuss the above with the attending physician. David Avila MD [facility]
[2017-08-14] MEDS: Multivitamin Therapeutic Tab PO SCH (09:59)
--- NOTE | 2017-08-14 09:59 | PN ---
DATE: 08/14/2017 SUBJECTIVE: The patient is seen in [facility]. The patient states that she had a small amount of blood with a bowel movement yesterday. She denies any further rectal bleeding today. She denies any further abdominal pain, nausea, vomiting. PHYSICAL EXAMINATION VITAL SIGNS: Reveal temperature of 97.9, blood pressure 97/62, heart rate is 72. HEENT: Reveals sclerae to be white. Conjunctivae pale. NECK: Supple. CHEST: Reveals decreased breath sounds at the bases. HEART: Reveals regular rate and rhythm. ABDOMEN: Soft, nontender. No mass. EXTREMITIES: Show no edema. RECTAL: Shows the presence of small external hemorrhoids. There is no rectal mass. There is no blood in the rectal vault. Stool is yellowish brown. IMPRESSION: 1. Chronic abdominal pain and the patient with history of opiate abuse. 2. End-stage renal disease. 3. Human immunodeficiency virus positivity. 4. Chronic anemia and now with low platelet count. Etiology of the low platelet count unclear. 5. Coronary artery disease. RECOMMENDATIONS: 1. The patient has been instructed to have an elective colonoscopy. 2. Continue current treatment. She is stable from a GI standpoint. Etiology of her fever is unclear. 3. Consider Hematology evaluation. Paul Snider MD
[2017-08-14] MEDS: Omega-3-Acid Ethyl Esters 1 GM Cap PO SCH ×2 (10:00→18:25)
[2017-08-14] MEDS: DARUNAVIR 800 MG PO SCH (10:01)
--- NOTE | 2017-08-14 12:30 | CP.PCM.CON ---
History of Present Illness - History of Present Illness History of Present Illness: 57 year old female with PMH of HIV and AIDS with last CD4 count 163 in 2015 , VL detectable, chronic renal failure on hemodialysis, coronary artery disease , history of UTI, history of esophageal ulcer, erosive gastritis, HTN, S/P cholecystectomy came in to [facility] because of abdominal pain and was being worked up for possible pancreatitis. She also developed fever but no bacterial source of infection was identified. She has done well and is now transferred to [facility] for continued medical therapy and physical rehab. Infectious Diseases consult is requested to further evaluate and manage. She is currently feeling better, no nausea or vomiting, no abdominal pain, no headache or dizziness, no chest pain, no cough or rhinorrhea, no diarrhea, no dysuria. Swallowing is better. Review of Systems - Review of Systems All systems: reviewed and no additional remarkable complaints except (as per HPI ) Past Patient History - Infectious Disease Hx of Infectious Diseases: None - Tetanus Immunizations Tetanus Immunization: Unknown - Past Medical History & Family History Past Medical History?: Yes - Past Social History Smoking Status: Never Smoked - CARDIAC Hx Cardiac Disorders: Yes (LA/Stent placement) Hx Hypertension: Yes - PULMONARY Hx Asthma: No Hx Bronchitis: No Hx Chronic Obstructive Pulmonary Disease (COPD): No Hx Emphysema: No Hx Pneumonia: Yes Hx Sleep Apnea: No - NEUROLOGICAL Hx Alzheimer's Disease: No Hx Dementia: No Hx Migraine: Yes Hx Parkinson's Disease: No Hx Seizures: No Hx Transient Ischemic Attacks (TIA): No - HEENT Hx HEENT Problems: No - RENAL Hx Renal Failure: Yes - ENDOCRINE/METABOLIC Hx Hypothyroidism: Yes - HEMATOLOGICAL/ONCOLOGICAL Hx Anemia: Yes Hx Sickle Cell Disease: No - INTEGUMENTARY Hx Dermatological Problems: Yes (generalized body itch on and off) - MUSCULOSKELETAL/RHEUMATOLOGICAL Hx Arthritis: No Hx Falls: No Hx Fractures: Yes (r ft fx) - GASTROINTESTINAL Hx Gall Bladder Disease: Yes Hx Pancreatitis: Yes - GENITOURINARY/GYNECOLOGICAL Hx Sexually Transmitted Disorders: Yes (HIV/AIDS) - PSYCHIATRIC Hx Anxiety: Yes Hx Depression: Yes - SURGICAL HISTORY Hx Appendectomy: Yes Hx Cholecystectomy: Yes Hx Coronary Stent: Yes - ANESTHESIA Hx Anesthesia: Yes Hx Anesthesia Reactions: No Hx Malignant Hyperthermia: No Meds Allergies/Adverse Reactions: Allergies Allergy/AdvReac Type Severity Reaction Status Date / Time MAVIS Inhibitors Allergy SWELLING Verified 08/13/17 22:37 - Medications Medications: Current Medications Acetaminophen (Tylenol 325mg Tab) 650 mg PO Q4H PRN PRN Reason: Fever >100.4 F Aspirin (Ecotrin) 81 mg PO 0800 [facility] Atorvastatin Calcium (Lipitor) 20 mg PO DIN D[facility]AS Calcium Acetate (Phoslo) 667 mg PO WM [facility] Clonazepam (Klonopin) 0.5 mg PO HS [facility] PRN Reason: Protocol Clopidogrel Bisulfate (Plavix) 75 mg PO DAILY [facility] Clotrimazole (Mycelex Tejal) 10 mg MT 5XD [facility] Folic Acid (Folic Acid) 1 mg PO DAILY [facility] Hydromorphone HCl (Dilaudid) 4 mg PO Q4H PRN PRN Reason: Pain, severe (8-10) Hydroxyzine HCl (Atarax) 25 mg PO BID PRN PRN Reason: Anxiety Dextrose/Sodium Chloride (Dextrose 5%/0.45% Ns 1000 Ml) 1,000 mls @ 80 mls/hr IV .[id number] [facility] Levothyroxine Sodium (Synthroid) 25 mcg PO 0600 D[facility] Metoclopramide HCl (Reglan) 5 mg IVP ACHS [facility] Metoprolol Tartrate (Lopressor) 50 mg PO BID [facility] Mirtazapine (Remeron) 7.5 mg PO HS [facility] Multivitamins (Thera Tab) 1 tab PO DAILY [facility] Non-Formulary Medication (Darunavir [Prezista]) 800 mg PO DAILY [facility] Non-Formulary Medication (Dolutegravir Sodium [Tivicay]) 50 mg PO DAILY [facility] Non-Formulary Medication (Levocetirizine Dihydrochloride [Xyzal]) 5 mg PO PRN PRN PRN Reason: Allergy symptoms Adaya-5-Rmiq Ethyl Esters (Lovaza) 1 gm PO BID [facility] Pantoprazole Sodium (Protonix Ec Tab) 40 mg PO 0600,1600 [facility] Physical Exam - Constitutional Appears: Non-toxic, Chronically Ill - Head Exam Head Exam: NORMAL INSPECTION - Neck Exam Neck exam: Negative for: Meningismus - Respiratory Exam Respiratory Exam: Decreased Breath Sounds - Cardiovascular Exam Cardiovascular Exam: +S1, +S2 - GI/Abdominal Exam GI & Abdominal Exam: Soft. absent: Tenderness Assessment & Plan - Assessment and Plan (Free Text) Plan: Assessment systemic inflammatory response syndrome, consider due to acute pancreatitis related to hypertriglyceridemia, less likely biliary tract disease transaminitis R/O drug-induced oral candidiasis history of Cony esophagitis with oral candidiasis HIV and AIDS, non-compliant with ART, last CD4 count 163 in Feb. 2015 history of Cdiff associated diarrhea history of left upper lobe HCAP erosive gastritis HTN chronic renal failure on hemodialysis coronary artery disease history of UTI history of esophageal ulcer S/P cholecystecomty Plan blood cx are negative, patient has no more fever, no leukocytosis - will continue to monitor off antibiotics and observe; reviewed CT A/P and discussed with GI - unlikely biliary tract disease will monitor AST, ALT will continue Mycelex for the oral candidiasis discussed with Dr. Avila previously - no pneumonia noted on CXR or physical exam continue ART and PJP Prophylaxis
--- NOTE | 2017-08-14 14:37 | PN ---
DATE: FOLLOWUP NOTE SUBJECTIVE: Overnight, the patient was transferred to Transitional Care Unit. The patient was followed up there. The patient presented to be depressed and sleepy. The patient reported that she feels kind of weak. The patient reported that she slept kind of better, but she asked Remeron to be increased. The patient reported that at times she feels hopeless, but not now. The patient denied thoughts of harming herself or others. The patient participated in treatment plan as well as physical therapy. No agitation. No aggression. Vital signs are stable. Temperature 97.9, pulse 72, blood pressure 97/62, respirations 20. Medications reviewed. Tylenol, aspirin, Lipitor, PhosLo, Klonopin 0.5 mg at the nighttime scheduled, Plavix, dextrose, folic acid, Dilaudid, Vistaril 25 mg b.i.d. p.r.n., Synthroid 25 mcg, Reglan, metoprolol, Remeron 15 mg, multivitamins, Ritonavir, Lovaza, Protonix. Labs reviewed. No new labs. MENTAL STATUS EXAMINATION: The patient appears to be drowsy and depressed. No eye contact. Speech was underproductive. Mood described as, I am fine. Affect was constricted. Thought process concrete. Thought content, the patient denied visual, auditory or tactile hallucinations. Denied paranoid ideation. The patient denied thoughts of harming herself or others. Denied intent or plan. Insight and judgment seems to be limited. Impulses are well controlled. IMPRESSION: Rule out major depressive disorder, rule out mood disorder due to general medical condition. PLAN: Continue current management. The patient is on hemodialysis. Continue current medications. Remeron was increased to 15 mg at the nighttime for depression and insomnia and appetite. Meanwhile, continue physical therapy. We will follow up and advise accordingly. Thank you very much for letting me participate in the care of your patient. Macy Almaraz MD
--- NOTE | 2017-08-14 15:02 | CON ---
DATE: 08/14/2017 REASON FOR CONSULTATION: Need for dialysis, epigastric pain, fatigue. HISTORY OF PRESENTING ILLNESS: A 57-year-old lady, known to me from outpatient hemodialysis. The patient was recently seen on the medical side when she was admitted with severe abdominal pain, nausea, vomiting. She was thought to have mild pancreatitis. She was also found to have systemic inflammatory response syndrome. She was febrile. She was treated empirically with antibiotics and PPI. She is now seen on the Transitional Care Unit. She is here for rehab. She is complaining of epigastric pain. She is complaining of being very weak. She denies any chest pain. She denies any shortness of breath. She denies any nausea or vomiting. PAST MEDICAL AND SURGICAL HISTORY: HIV, AIDS, ESRD, hypertension, esophageal ulcer, esophageal candidiasis, recurrent abdominal pain. FAMILY HISTORY: Noncontributory. SOCIAL HISTORY: No smoking, no alcohol use, no IV drug abuse. ALLERGIES: MAVIS INHIBITORS. CURRENT MEDICATIONS: Atarax, Prezista, D5 half-normal saline at 80, Dilaudid, Tivicay, Ecotrin, folic acid, Klonopin, Xyzal, Lipitor, Lopressor 50 b.i.d., Lovaza 1 g b.i.d. clotrimazole, Norvir, PhosLo, Plavix, Protonix, Reglan, Remeron, Synthroid, Tylenol. REVIEW OF SYSTEMS: All systems are reviewed, pertinent positives as mentioned in the history of presenting illness, rest unremarkable. PHYSICAL EXAMINATION: GENERAL: Middle-aged lady, walking in the room. VITAL SIGNS: Blood pressure 97/62, heart rate 72, respiratory rate 20, temperature 97.9. HEENT: Normocephalic, atraumatic, positive pallor. NECK: Supple, no JVD. Lungs: Bilateral equal air entry, bilateral equal expansion, no rales. Cardiac: S1 and S2, regular rate and rhythm, no murmur, no rub. ABDOMEN: Distended, soft, positive epigastric tenderness, bowel sounds present. EXTREMITIES: No lower extremity edema. INTAKE AND OUTPUT: Not charted. LABORATORY DATA: No new labs available. ASSESSMENT: 1. Status post systemic inflammatory response syndrome, high fevers with no source. 2. Mild pancreatitis. 3. Elevated liver function tests. 4. History of esophageal candidiasis. 5. Human immunodeficiency virus/acquired immune deficiency syndrome 6. End-stage renal disease. 7. Chronic pain and dependence on pain medication. PLAN: 1. The patient is off antibiotics. 2. Continue antiretrovirals per ID. 3. Dialysis today. 4. Limit pain medications. 5. Physical therapy. Thank you for the courtesy of this consultation. Meryl Shukla MD
[2017-08-14 15:21] LABS: BASO # 0.01 K/mm3 (0.0-2.0); BASO % 0.1 % (0.0-3.0); EOS # 0.3 (0.0-0.7); EOS % 3.5 % (1.5-5.0); GRAN # 5.52 (1.4-6.5); HEMOGLOBIN 9.3 g/dL (12.0-16.0); LYMPH # 1.1 (1.2-3.4); LYMPH % 14.6 % (22.0-35.0); MEAN CELL VOLUME 96.6 fl (80.0-105.0); MEAN CORPUSCULAR HEMOGLOBIN 31.8 pg (25.0-35.0); MEAN PLATELET VOLUME 12.3 fl (7.0-11.0); MONO # 0.6 (0.1-0.6); MONO % 7.8 % (1.0-6.0); RBC 2.92 10^6/uL (3.5-6.1); RED CELL DISTRIBUTION WIDTH 16.6 % (11.5-14.5)
[2017-08-14 15:36] LABS: ALB/GLOB RATIO 0.8 (1.1-1.8); ALBUMIN 3.1 g/dL (3.0-4.8); CALCIUM 8.5 mg/dL (8.4-10.5)
[2017-08-14 16:11] LABS: WHITE BLOOD COUNT 7.5 10^3/ul (4.5-11.0)
--- NOTE | 2017-08-14 19:18 | CP.PCM.CON ---
History of Present Illness - History of Present Illness History of Present Illness: 57 year old female with a history of HIV/AIDS, HTN, ESRD on HD, treated for pancreatitis, with anemia and progressive thrombocytopenia. She reports she is unaware of having low blood counts. She denies abnormal bleeding and bruising. Review of her medical records shows intermittent thrombocytopenia in 2016 and platelet rico of 58,000. Past medical history: HIV/AIDS, HTN, ESRD on HD Past surgical history: , cholecystectomy Family history: Denies hematologic and oncologic problems Social history: Denies tobacco, alcohol, and illicit drug use. Allergies: Jamir inhibitors Review of systems: All remaining review of systems including HEENT, cardiovascular, respiratory, gastrointestinal, genitourinary, musculoskeletal, dermatologic, neurologic, and psychiatric are negative unless mentioned in the HPI. Past Patient History - Infectious Disease Hx of Infectious Diseases: None - Tetanus Immunizations Tetanus Immunization: Unknown - Past Medical History & Family History Past Medical History?: Yes - Past Social History Smoking Status: Never Smoked - CARDIAC Hx Cardiac Disorders: Yes (IN/Stent placement) Hx Hypertension: Yes - PULMONARY Hx Asthma: No Hx Bronchitis: No Hx Chronic Obstructive Pulmonary Disease (COPD): No Hx Emphysema: No Hx Pneumonia: Yes Hx Sleep Apnea: No - NEUROLOGICAL Hx Alzheimer's Disease: No Hx Dementia: No Hx Migraine: Yes Hx Parkinson's Disease: No Hx Seizures: No Hx Transient Ischemic Attacks (TIA): No - HEENT Hx HEENT Problems: No - RENAL Hx Renal Failure: Yes - ENDOCRINE/METABOLIC Hx Hypothyroidism: Yes - HEMATOLOGICAL/ONCOLOGICAL Hx Anemia: Yes Hx Sickle Cell Disease: No - INTEGUMENTARY Hx Dermatological Problems: Yes (generalized body itch on and off) - MUSCULOSKELETAL/RHEUMATOLOGICAL Hx Arthritis: No Hx Falls: No Hx Fractures: Yes (r ft fx) - GASTROINTESTINAL Hx Gall Bladder Disease: Yes Hx Pancreatitis: Yes - GENITOURINARY/GYNECOLOGICAL Hx Sexually Transmitted Disorders: Yes (HIV/AIDS) - PSYCHIATRIC Hx Anxiety: Yes Hx Depression: Yes - SURGICAL HISTORY Hx Appendectomy: Yes Hx Cholecystectomy: Yes Hx Coronary Stent: Yes - ANESTHESIA Hx Anesthesia: Yes Hx Anesthesia Reactions: No Hx Malignant Hyperthermia: No Meds Allergies/Adverse Reactions: Allergies Allergy/AdvReac Type Severity Reaction Status Date / Time JAMIR Inhibitors Allergy SWELLING Verified 08/13/17 22:37 - Medications Medications: Current Medications Acetaminophen (Tylenol 325mg Tab) 650 mg PO Q4H PRN PRN Reason: Fever >100.4 F Aspirin (Ecotrin) 81 mg PO 0800 [facility] Last Admin: 08/14/17 08:15 Dose: 81 mg Atorvastatin Calcium (Lipitor) 20 mg PO DIN [facility] Last Admin: 08/14/17 18:24 Dose: 20 mg Calcium Acetate (Phoslo) 667 mg PO WM [facility] Last Admin: 08/14/17 18:24 Dose: 667 mg Clonazepam (Klonopin) 0.5 mg PO HS [facility] PRN Reason: Protocol Last Admin: 08/13/17 23:14 Dose: 0.5 mg Clopidogrel Bisulfate (Plavix) 75 mg PO DAILY [facility] Last Admin: 08/14/17 10:00 Dose: Not Given Clotrimazole (Mycelex Tejal) 10 mg MT 5XD [facility] Last Admin: 08/14/17 18:25 Dose: Not Given Folic Acid (Folic Acid) 1 mg PO DAILY [facility] Last Admin: 08/14/17 10:00 Dose: Not Given Hydromorphone HCl (Dilaudid) 4 mg PO Q4H PRN PRN Reason: Pain, severe (8-10) Last Admin: 08/14/17 12:27 Dose: 4 mg Hydroxyzine HCl (Atarax) 25 mg PO BID PRN PRN Reason: Anxiety Dextrose/Sodium Chloride (Dextrose 5%/0.45% Ns 1000 Ml) 1,000 mls @ 80 mls/hr IV .[id number] [facility] Last Admin: 08/14/17 12:26 Dose: 80 mls/hr Levothyroxine Sodium (Synthroid) 25 mcg PO 0600 [facility] Last Admin: 08/14/17 05:51 Dose: 25 mcg Metoclopramide HCl (Reglan) 5 mg IVP ACHS [facility] Last Admin: 08/14/17 18:23 Dose: 5 mg Metoprolol Tartrate (Lopressor) 50 mg PO BID [facility] Last Admin: 08/14/17 18:24 Dose: 50 mg Mirtazapine (Remeron) 15 mg PO HS [facility] Multivitamins (Thera Tab) 1 tab PO DAILY [facility] Last Admin: 08/14/17 09:59 Dose: Not Given Non-Formulary Medication (Darunavir [Prezista]) 800 mg PO DAILY [facility] Last Admin: 08/14/17 10:01 Dose: Not Given Non-Formulary Medication (Dolutegravir Sodium [Tivicay]) 50 mg PO DAILY [facility] Last Admin: 08/14/17 10:00 Dose: Not Given Non-Formulary Medication (Levocetirizine Dihydrochloride [Xyzal]) 5 mg PO PRN PRN PRN Reason: Allergy symptoms Qtaas-5-Suca Ethyl Esters (Lovaza) 1 gm PO BID [facility] Last Admin: 08/14/17 18:25 Dose: 1 gm Pantoprazole Sodium (Protonix Ec Tab) 40 mg PO 0600,1600 [facility] Last Admin: 08/14/17 18:24 Dose: 40 mg Ritonavir (Norvir) 100 mg PO DAILY [facility] PRN Reason: Protocol Last Admin: 08/14/17 12:14 Dose: 100 mg Physical Exam - Head Exam Head Exam: ATRAUMATIC - Eye Exam Eye Exam: Normal appearance - ENT Exam ENT Exam: Mucous Membranes Dry - Respiratory Exam Respiratory Exam: NORMAL BREATHING PATTERN - Cardiovascular Exam Cardiovascular Exam: +S1, +S2 - GI/Abdominal Exam GI & Abdominal Exam: Normal Bowel Sounds - Extremities Exam Extremities exam: Positive for: normal inspection - Neurological Exam Neurological exam: Oriented x3 - Psychiatric Exam Psychiatric exam: Normal Affect, Normal Mood - Skin Skin Exam: Warm Results - Vital Signs Recent Vital Signs: Last Vital Signs Temp 98.2 F 08/14/17 10:00 Pulse 83 08/14/17 18:24 Resp 16 08/14/17 10:00 BP 155/89 H 08/14/17 18:24 Pulse Ox 96 08/14/17 10:00 - Labs Result Diagrams: 08/14/17 14:42 08/14/17 14:42 Labs: Laboratory Results - last 24 hr 08/14/17 08/14/17 14:42 14:42 WBC 7.5 RBC 2.92 L Hgb 9.3 L Hct 28.2 L MCV 96.6 MCH 31.8 MCHC 33.0 RDW 16.6 H Plt Count 58 L MPV 12.3 H Gran % 74.0 H Lymph % (Auto) 14.6 L Charlton % (Auto) 7.8 H Eos % (Auto) 3.5 Baso % (Auto) 0.1 Gran # 5.52 Lymph # (Auto) 1.1 L Charlton # (Auto) 0.6 Eos # (Auto) 0.3 Baso # (Auto) 0.01 Sodium 133 Potassium 3.4 L Chloride 97 L Carbon Dioxide 27 Anion Gap 12 BUN 45 H Creatinine 8.7 H* D Est GFR ( Amer) 6 Est GFR (Non-Af Amer) 5 Random Glucose 123 H Calcium 8.5 Phosphorus 3.9 Magnesium 1.8 Total Bilirubin 0.6 AST 240 H D ALT 197 H Alkaline Phosphatase 113 Total Protein 7.1 Albumin 3.1 Globulin 4.0 Albumin/Globulin Ratio 0.8 L Assessment & Plan (1) Thrombocytopenia Assessment and Plan: ? ITP ? HIT will check heparin Ab, serotonin release assay; hold heparin with dialysis will consider steroids if plt count cont. to decline Status: Acute (2) Anemia Assessment and Plan: anemia of HIV anemia of CKD; EPO per renal will check ferritin, retic count, b12, folate Thank you for this interesting consult. Status: Acute
[2017-08-15] MEDS: Dextrose 5%/0.45% NS 1,000 ML IV SCH (05:03)
[2017-08-15] MEDS: Pantoprazole 40 mg EC Tab PO SCH ×2 (05:11→16:00)
[2017-08-15] MEDS: Levothyroxine 25 MCG TAB PO SCH (05:11)
--- NOTE | 2017-08-15 07:52 | PN ---
DATE: 08/15/2017 PULMONARY NOTE SUBJECTIVE: The patient appears comfortable this morning. She is not short of breath at rest. PHYSICAL EXAMINATION: VITAL SIGNS: Temperature is 98.2, pulse 83, respirations 18, blood pressure 155/89. Oxygen saturation on room air is 96%. HEENT: Normocephalic, atraumatic. NECK: No JVD. CARDIOVASCULAR: Systolic ejection murmur at the lower left sternal border. No S3 gallop. LUNGS: Mild crackles at both bases. No rhonchi. No wheezing. EXTREMITIES: Positive for mild edema. No cyanosis. No clubbing. Calves are nontender to palpation. GI: Abdomen is soft. It remains mildly distended and mildly tender to palpation. Bowel sounds are positive. SKIN: No acute rash. NEUROLOGIC: Exam limited at the present time. IMPRESSION: 1. Acute pancreatitis. 2. End-stage renal disease. 3. Chronic congestive heart failure. 4. Coronary artery disease. 5. Chronic interstitial changes. 6. Anemia. PLAN: The patient appears comfortable this morning. She is not short of breath at rest. She does have less abdominal pain. She does state to feeling better overall. On physical exam, there is no significant bronchospasm noted. In addition, there is no significant alveolar-arterial gradient. Inputs by Hematology and Renal are noted. Input by Infectious Disease is also noted. The patient is now off antibiotic therapy. The temperatures have resolved. There is no leukocytosis. The clinical status of this patient is significantly improved-compared to the initial presentation. However, her future status/prognosis does remain guarded. I will discuss the above with the attending physician. David Avila MD [facility]
[2017-08-15 08:19] LABS: BASO # 0.01 K/mm3 (0.0-2.0); BASO % 0.2 % (0.0-3.0); EOS # 0.3 (0.0-0.7); GRAN % 67.1 % (50.0-68.0); HEMOGLOBIN 8.4 g/dL (12.0-16.0); LYMPH % 18.2 % (22.0-35.0); MEAN CELL VOLUME 97.8 fl (80.0-105.0); MEAN CORPUSCULAR HEMOGLOBIN 30.9 pg (25.0-35.0); MEAN CORPUSCULAR HGB CONC 31.6 g/dl (31.0-37.0); MONO # 0.5 (0.1-0.6); MONO % 9.5 % (1.0-6.0); PLATELET COUNT 55 10^3/uL (120.0-450.0); RBC 2.72 10^6/uL (3.5-6.1); RED CELL DISTRIBUTION WIDTH 16.8 % (11.5-14.5); WHITE BLOOD COUNT 5.4 10^3/ul (4.5-11.0)
--- NOTE | 2017-08-15 08:26 | CP.PCM.PN ---
Subjective - Date & Time of Evaluation Date of Evaluation: 08/15/17 Time of Evaluation: 08:00 - Subjective Subjective: (covering for Dr. Rubalcava) Patient is seen this morning. She is feeling much better overall. She denies pain. She is asking to go home. Objective - Vital Signs/Intake and Output Vital Signs (last 24 hours): Temp Pulse Resp BP Pulse Ox 98.2 F 83 16 155/89 H 96 08/14/17 10:00 08/14/17 18:24 08/14/17 10:00 08/14/17 18:24 08/14/17 10:00 - Medications Medications: Current Medications Acetaminophen (Tylenol 325mg Tab) 650 mg PO Q4H PRN PRN Reason: Fever >100.4 F Aspirin (Ecotrin) 81 mg PO 0800 [facility] Last Admin: 08/14/17 08:15 Dose: 81 mg Atorvastatin Calcium (Lipitor) 20 mg PO DIN [facility] Last Admin: 08/14/17 18:24 Dose: 20 mg Atovaquone (Mepron) 750 mg PO BID [facility] PRN Reason: Protocol Calcium Acetate (Phoslo) 667 mg PO WM [facility] Last Admin: 08/14/17 18:24 Dose: 667 mg Clonazepam (Klonopin) 0.5 mg PO HS [facility] PRN Reason: Protocol Last Admin: 08/15/17 04:54 Dose: Not Given Clopidogrel Bisulfate (Plavix) 75 mg PO DAILY [facility] Last Admin: 08/14/17 10:00 Dose: Not Given Clotrimazole (Mycelex Tejal) 10 mg MT 5XD [facility] Last Admin: 08/14/17 21:18 Dose: 10 mg Folic Acid (Folic Acid) 1 mg PO DAILY [facility] Last Admin: 08/14/17 10:00 Dose: Not Given Hydromorphone HCl (Dilaudid) 4 mg PO Q4H PRN PRN Reason: Pain, severe (8-10) Last Admin: 08/15/17 05:04 Dose: 4 mg Hydroxyzine HCl (Atarax) 25 mg PO BID PRN PRN Reason: Anxiety Last Admin: 08/14/17 19:41 Dose: 25 mg Dextrose/Sodium Chloride (Dextrose 5%/0.45% Ns 1000 Ml) 1,000 mls @ 80 mls/hr IV .[id number] [facility] Last Admin: 08/15/17 05:03 Dose: 80 mls/hr Levothyroxine Sodium (Synthroid) 25 mcg PO 0600 [facility] Last Admin: 08/15/17 05:11 Dose: Not Given Metoclopramide HCl (Reglan) 5 mg IVP ACHS [facility] Last Admin: 08/15/17 04:57 Dose: Not Given Metoprolol Tartrate (Lopressor) 50 mg PO BID [facility] Last Admin: 08/14/17 18:24 Dose: 50 mg Mirtazapine (Remeron) 15 mg PO HS [facility] Last Admin: 08/15/17 04:58 Dose: Not Given Multivitamins (Thera Tab) 1 tab PO DAILY [facility] Last Admin: 08/14/17 09:59 Dose: Not Given Non-Formulary Medication (Darunavir [Prezista]) 800 mg PO DAILY [facility] Last Admin: 08/14/17 10:01 Dose: Not Given Non-Formulary Medication (Dolutegravir Sodium [Tivicay]) 50 mg PO DAILY [facility] Last Admin: 08/14/17 10:00 Dose: Not Given Non-Formulary Medication (Levocetirizine Dihydrochloride [Xyzal]) 5 mg PO PRN PRN PRN Reason: Allergy symptoms Svtpt-5-Huhh Ethyl Esters (Lovaza) 1 gm PO BID [facility] Last Admin: 08/14/17 18:25 Dose: 1 gm Pantoprazole Sodium (Protonix Ec Tab) 40 mg PO 0600,1600 [facility] Last Admin: 08/15/17 05:11 Dose: Not Given Ritonavir (Norvir) 100 mg PO DAILY [facility] PRN Reason: Protocol Last Admin: 08/14/17 12:14 Dose: 100 mg - Labs Labs: 08/15/17 05:00 08/14/17 14:42 - Constitutional Appears: No Acute Distress - Head Exam Head Exam: ATRAUMATIC, NORMOCEPHALIC - Respiratory Exam Respiratory Exam: Clear to Ausculation Bilateral, NORMAL BREATHING PATTERN - Cardiovascular Exam Cardiovascular Exam: +S1, +S2 - GI/Abdominal Exam GI & Abdominal Exam: Soft, Normal Bowel Sounds. absent: Tenderness - Extremities Exam Extremities Exam: Normal Inspection - Neurological Exam Neurological Exam: Alert, Awake, Oriented x3 Assessment and Plan - Assessment and Plan (Free Text) Assessment: epigastric abdominal pain - resolved SIRS HIV chronic systolic heart failure CAD ESRD on HD HTN Plan: Patient is feeling better. She went for dialysis yesterday. Blood pressure improved. We will discontinue IV fluids. continue physical therapy. Hematology consult appreciated.
[2017-08-15 08:32] LABS: ALB/GLOB RATIO 0.8 (1.1-1.8); ALBUMIN 2.8 g/dL (3.0-4.8); ALT/SGPT 145 U/L (7-56); AST/SGOT 173 U/L (14-36); BLOOD UREA NITROGEN 25 mg/dL (7-21); CALCIUM 7.9 mg/dL (8.4-10.5); GFR AFRICAN-AMERICAN 10; GFR NON-AFRICAN AMERICAN 8
[2017-08-15 08:59] LABS: PLATELET COUNT MANUAL 69 K/mm3 (120-450)
[2017-08-15] MEDS: Omega-3-Acid Ethyl Esters 1 GM Cap PO SCH ×2 (10:13→18:10)
[2017-08-15] MEDS: Multivitamin Therapeutic Tab PO SCH (10:14)
[2017-08-15] MEDS: Atovaquone 750 mg/5 ml Susp UD PO SCH ×2 (10:15→18:10)
[2017-08-15] MEDS: DARUNAVIR 800 MG PO SCH (10:24)
--- NOTE | 2017-08-15 11:55 | CP.PCM.PN ---
Subjective - Date & Time of Evaluation Date of Evaluation: 08/15/17 Time of Evaluation: 10:05 - Subjective Subjective: No abdominal pain, no fevers, no diarrhea, no more pain in the mouth, not in distress. Objective - Vital Signs/Intake and Output Vital Signs (last 24 hours): Temp Pulse Resp BP Pulse Ox 98.2 F 83 16 155/89 H 96 08/14/17 10:00 08/14/17 18:24 08/14/17 10:00 08/14/17 18:24 08/14/17 10:00 - Medications Medications: Current Medications Acetaminophen (Tylenol 325mg Tab) 650 mg PO Q4H PRN PRN Reason: Fever >100.4 F Aspirin (Ecotrin) 81 mg PO 0800 [facility] Last Admin: 08/14/17 08:15 Dose: 81 mg Atorvastatin Calcium (Lipitor) 20 mg PO DIN [facility] Last Admin: 08/14/17 18:24 Dose: 20 mg Atovaquone (Mepron) 750 mg PO BID [facility] PRN Reason: Protocol Calcium Acetate (Phoslo) 667 mg PO WM [facility] Last Admin: 08/14/17 18:24 Dose: 667 mg Clonazepam (Klonopin) 0.5 mg PO HS [facility] PRN Reason: Protocol Last Admin: 08/15/17 04:54 Dose: Not Given Clopidogrel Bisulfate (Plavix) 75 mg PO DAILY [facility] Last Admin: 08/14/17 10:00 Dose: Not Given Clotrimazole (Mycelex Tejal) 10 mg MT 5XD [facility] Last Admin: 08/14/17 21:18 Dose: 10 mg Folic Acid (Folic Acid) 1 mg PO DAILY [facility] Last Admin: 08/14/17 10:00 Dose: Not Given Hydromorphone HCl (Dilaudid) 4 mg PO Q4H PRN PRN Reason: Pain, severe (8-10) Last Admin: 08/15/17 05:04 Dose: 4 mg Hydroxyzine HCl (Atarax) 25 mg PO BID PRN PRN Reason: Anxiety Last Admin: 08/14/17 19:41 Dose: 25 mg Dextrose/Sodium Chloride (Dextrose 5%/0.45% Ns 1000 Ml) 1,000 mls @ 80 mls/hr IV .[id number] [facility] Last Admin: 08/15/17 05:03 Dose: 80 mls/hr Levothyroxine Sodium (Synthroid) 25 mcg PO 0600 [facility] Last Admin: 08/15/17 05:11 Dose: Not Given Metoclopramide HCl (Reglan) 5 mg IVP ACHS [facility] Last Admin: 08/15/17 04:57 Dose: Not Given Metoprolol Tartrate (Lopressor) 50 mg PO BID [facility] Last Admin: 08/14/17 18:24 Dose: 50 mg Mirtazapine (Remeron) 15 mg PO HS [facility] Last Admin: 08/15/17 04:58 Dose: Not Given Multivitamins (Thera Tab) 1 tab PO DAILY [facility] Last Admin: 08/14/17 09:59 Dose: Not Given Non-Formulary Medication (Darunavir [Prezista]) 800 mg PO DAILY [facility] Last Admin: 08/14/17 10:01 Dose: Not Given Non-Formulary Medication (Dolutegravir Sodium [Tivicay]) 50 mg PO DAILY [facility] Last Admin: 08/14/17 10:00 Dose: Not Given Non-Formulary Medication (Levocetirizine Dihydrochloride [Xyzal]) 5 mg PO PRN PRN PRN Reason: Allergy symptoms [id number] Ethyl Esters (Lovaza) 1 gm PO BID [facility] Last Admin: 08/14/17 18:25 Dose: 1 gm Pantoprazole Sodium (Protonix Ec Tab) 40 mg PO 0600,1600 [facility] Last Admin: 08/15/17 05:11 Dose: Not Given Ritonavir (Norvir) 100 mg PO DAILY [facility] PRN Reason: Protocol Last Admin: 08/14/17 12:14 Dose: 100 mg - Labs Labs: 08/14/17 14:42 08/14/17 14:42 - Constitutional Appears: Chronically Ill - Head Exam Head Exam: NORMAL INSPECTION - ENT Exam Additional comments: resolving oral thrush - Neck Exam Neck Exam: absent: Meningismus - Respiratory Exam Respiratory Exam: Decreased Breath Sounds - Cardiovascular Exam Cardiovascular Exam: +S1, +S2 - GI/Abdominal Exam GI & Abdominal Exam: Soft. absent: Tenderness Assessment and Plan - Assessment and Plan (Free Text) Plan: Assessment S/P systemic inflammatory response syndrome, consider due to acute pancreatitis related to hypertriglyceridemia oral candidiasis history of Cony esophagitis with oral candidiasis HIV and AIDS, non-compliant with ART, last CD4 count 163 in 2015 history of Cdiff associated diarrhea history of left upper lobe HCAP erosive gastritis HTN chronic renal failure on hemodialysis coronary artery disease history of UTI history of esophageal ulcer S/P cholecystecomty Plan blood cx are negative, patient has no more fever, no leukocytosis - will continue to monitor off antibiotics and observe; reviewed CT A/P and discussed with GI - unlikely biliary tract disease will monitor AST, ALT will continue Mycelex for the oral candidiasis discussed with Dr. Avila previously - no pneumonia noted on CXR or physical exam continue ART and PJP Prophylaxis will re-check CD4 count and HIV VL
[2017-08-15 12:30] LABS: HEPATITIS B SURFACE AG Negative (NEGATIVE)
[2017-08-15 12:36] LABS: HEPATITIS A IGM NEGATIVE (NEGATIVE); HEPATITIS B CORE AB NEGATIVE (NEGATIVE)
[2017-08-15 12:47] LABS: HEPATITIS C ANTIBODY NEGATIVE (NEGATIVE)
--- NOTE | 2017-08-15 13:45 | PN ---
DATE: SUBJECTIVE: The patient is a 57-year-old female with multiple medical issues including hemodialysis three times a week because of end-stage renal disease. Psych was involved because of depressive symptoms. This group underwriter implemented Remeron, Paxil was discontinued. Remeron is on titrating dose. The patient was seen today for followup on the Transitional Care Unit. The patient presented to be alert and oriented, pleasant, much improved to compare with the previous couple of days. The patient's affect was reactive. The patient reported that she slept relatively well, but woke up at 05:00 a.m. Patient said that she likes Remeron very much and wants to increase the dose further. The patient reported that overall she feels much better. PHYSICAL EXAMINATION: VITAL SIGNS: Stable. Temperature 98.2, pulse is 83, blood pressure 155/89, respirations 16, oxygen saturation is 96. MEDICATIONS: Reviewed. Klonopin 0.5 mg at the nighttime, but it was not given as the patient was sleeping. The patient is on Remeron, which will be increased to 30 mg today, multivitamins and the rest of the medication up to the medical team. LABORATORY DATA: Reviewed. Most recent was from today. Hemoglobin and hematocrit 8.4 and 26.6. Chemistry also reviewed, AST and ALT are elevated at 173 and 145 respectively, but it is trending down. Creatinine is 5.5, which is elevated, but compared with yesterday it was improved; potassium 3.2 and chloride 96. MENTAL STATUS EXAMINATION: The patient presented to be alert and oriented, pleasant, cooperative. Personal hygiene is much better and good eye contact. Mood described as "I feel better." Affect was more reactive, mood congruent. Thought process was coherent and goal directed. Thought content, the patient denied visual, auditory, tactile hallucinations. Denied paranoid ideation. The patient denied thoughts of harming herself or others. Denied intents or plan. Insight and judgment improving. Impulses are well controlled. IMPRESSION: Rule out mood disorder due to general medical condition, rule out major depressive disorder. PLAN: Continue current management. Continue current medication. Remeron was increased today, 08/15 to 30 mg with a plan to titrate to the maximum dose or whatever patient tolerates. Over the weekend, Dr. Ahmadi will see her. Should you have any questions, give me a call back. Thank you very much for letting me to participate in care of your patient. Macy Almaraz MD
--- NOTE | 2017-08-15 15:28 | PN ---
DATE: 08/15/2017 SUBJECTIVE: The patient is seen lying in bed. She is awake. She is alert. She is comfortable. She reports that the abdominal pain is much better. She wants to go home. PHYSICAL EXAMINATION: GENERAL: Middle-aged lady, lying in bed. VITAL SIGNS: Blood pressure 152/93, heart rate 73, respiratory rate 18, temperature 98. HEENT: Normocephalic, atraumatic, positive pallor. NECK: Supple, no JVD. LUNGS: Bilateral equal air entry, bilateral equal expansion, no rales. CARDIAC: S1 and S2, regular rate and rhythm, no murmur, no rub. ABDOMEN: Distended, soft, positive tenderness in the epigastrium, bowel sounds present. EXTREMITIES: No lower extremity edema. LABORATORY DATA: WBC 5.4, hemoglobin 8.4, hematocrit 26.6, platelets 55. Sodium 133, potassium 3.2, chloride 96, CO2 of 31, BUN 25, creatinine 5.5, glucose 124, calcium 7.9, albumin 2.8, corrected calcium of 8.9, AST 173, ALT 145. CURRENT MEDICATIONS: Atarax, Prezista, Dilaudid, Tivicay, Ecotrin, folic acid, Klonopin, Xyzal, Lipitor, Lopressor 50 b.i.d., Lovaza, Mepron, Mycelex, Norvir, PhosLo, Plavix, Protonix, Reglan, Remeron, Synthroid. ASSESSMENT: 1. Status post systemic inflammatory response syndrome. Cultures all negative. 2. Nausea, vomiting, diarrhea, mild pancreatitis, improved. 3. Elevated liver function tests. 4. History of esophageal candidiasis. 5. History of gastrointestinal bleed. 6. Human immunodeficiency virus/acquired immune deficiency syndrome. 7. Coronary artery disease, percutaneous transluminal coronary angioplasty and stents. 9. Hypertension. 10. Anemia of chronic disease. 11. Thrombocytopenia. PLAN: 1. Agree with discontinuation of IV fluids. 2. Stable dialysis yesterday. 3. Continue antiretrovirals. 4. Off antibiotics as per ID. 5. Limit pain medication. 6. Continue PPI. 7. Continue physical therapy. Meryl Shukla MD
[2017-08-15 15:51] LABS: FERRITIN > 5000.0 ng/mL
[2017-08-16] MEDS: Levothyroxine 25 MCG TAB PO SCH (06:19)
[2017-08-16] MEDS: Pantoprazole 40 mg EC Tab PO SCH ×2 (06:26→17:48)
--- NOTE | 2017-08-16 08:11 | CP.PCM.PN ---
Subjective - Date & Time of Evaluation Date of Evaluation: 08/16/17 Time of Evaluation: 07:45 - Subjective Subjective: (covering for Dr. Rubalcava) Patient is seen this morning. She says she feels pretty good. She says that she did well in therapy yesterday. Objective - Vital Signs/Intake and Output Vital Signs (last 24 hours): Temp Pulse Resp BP Pulse Ox 98 F 72 18 112/71 99 08/15/17 17:37 08/15/17 18:09 08/15/17 17:37 08/15/17 18:09 08/15/17 17:37 - Medications Medications: Current Medications Acetaminophen (Tylenol 325mg Tab) 650 mg PO Q4H PRN PRN Reason: Fever >100.4 F Aspirin (Ecotrin) 81 mg PO 0800 [facility] Last Admin: 08/15/17 10:13 Dose: 81 mg Atorvastatin Calcium (Lipitor) 20 mg PO DIN [facility] Last Admin: 08/15/17 18:07 Dose: 20 mg Atovaquone (Mepron) 750 mg PO BID [facility] PRN Reason: Protocol Last Admin: 08/15/17 18:10 Dose: 750 mg Calcium Acetate (Phoslo) 667 mg PO WM [facility] Last Admin: 08/15/17 16:00 Dose: 667 mg Clonazepam (Klonopin) 0.5 mg PO HS [facility] PRN Reason: Protocol Last Admin: 08/15/17 22:35 Dose: 0.5 mg Clopidogrel Bisulfate (Plavix) 75 mg PO DAILY [facility] Last Admin: 08/15/17 10:13 Dose: 75 mg Clotrimazole (Mycelex Tejal) 10 mg MT 5XD [facility] Last Admin: 08/16/17 06:19 Dose: Not Given Folic Acid (Folic Acid) 1 mg PO DAILY [facility] Last Admin: 08/15/17 10:14 Dose: 1 mg Hydromorphone HCl (Dilaudid) 4 mg PO Q4H PRN PRN Reason: Pain, severe (8-10) Last Admin: 08/15/17 18:20 Dose: 4 mg Hydroxyzine HCl (Atarax) 25 mg PO BID PRN PRN Reason: Anxiety Last Admin: 08/15/17 10:14 Dose: 25 mg Levothyroxine Sodium (Synthroid) 25 mcg PO 0600 [facility] Last Admin: 08/16/17 06:19 Dose: Not Given Metoclopramide HCl (Reglan) 5 mg PO ACHS [facility] Last Admin: 08/16/17 06:30 Dose: Not Given Metoprolol Tartrate (Lopressor) 50 mg PO BID [facility] Last Admin: 08/15/17 18:09 Dose: 50 mg Mirtazapine (Remeron) 30 mg PO HS [facility] Last Admin: 08/15/17 22:37 Dose: 30 mg Multivitamins (Thera Tab) 1 tab PO DAILY [facility] Last Admin: 08/15/17 10:14 Dose: 1 tab Non-Formulary Medication (Darunavir [Prezista]) 800 mg PO DAILY [facility] Last Admin: 08/15/17 10:24 Dose: Not Given Non-Formulary Medication (Dolutegravir Sodium [Tivicay]) 50 mg PO DAILY [facility] Last Admin: 08/15/17 10:23 Dose: Not Given Non-Formulary Medication (Levocetirizine Dihydrochloride [Xyzal]) 5 mg PO PRN PRN PRN Reason: Allergy symptoms [id number] Ethyl Esters (Lovaza) 1 gm PO BID [facility] Last Admin: 08/15/17 18:10 Dose: 1 gm Pantoprazole Sodium (Protonix Ec Tab) 40 mg PO 0600,1600 [facility] Last Admin: 08/16/17 06:26 Dose: Not Given Ritonavir (Norvir) 100 mg PO DAILY [facility] PRN Reason: Protocol Last Admin: 08/15/17 10:12 Dose: 100 mg - Labs Labs: 08/15/17 05:00 08/15/17 05:00 - Constitutional Appears: No Acute Distress - Head Exam Head Exam: ATRAUMATIC, NORMOCEPHALIC - Respiratory Exam Respiratory Exam: Clear to Ausculation Bilateral, NORMAL BREATHING PATTERN - Cardiovascular Exam Cardiovascular Exam: REGULAR RHYTHM, +S1, +S2 - GI/Abdominal Exam GI & Abdominal Exam: Soft, Normal Bowel Sounds. absent: Tenderness - Extremities Exam Extremities Exam: Normal Inspection - Neurological Exam Neurological Exam: Alert, Awake, Oriented x3 Assessment and Plan - Assessment and Plan (Free Text) Assessment: Noncompliance ESRD on HD Pancreatitis/gastritis HTN HIV Plan: Patient says she is doing well in physical therapy. She is to go for dialysis today. She is refusing medications according to the nurse. She denies pain this morning. Will discontinue dilaudid. off antibiotics as per infectious disease.
--- NOTE | 2017-08-16 08:28 | PN ---
DATE: 08/16/2017 SUBJECTIVE: The patient is in bed, seen early this morning in room 321. She is awake and alert. She is requesting about going home. No fevers and chills. PHYSICAL EXAMINATION: VITAL SIGNS: Temperature is 98, blood pressure is 112/70, respiratory rate of 18, heart rate of 73. HEENT: Examination of HEENT is unremarkable. NECK: Supple. LUNGS: Decreased breath sounds. HEART: Normal S1 and S2. ABDOMEN: Soft. LABORATORY DATA: Laboratory examination reveals a white count of 5.4 and a hemoglobin of 8, BUN of 25, creatinine of 5.5. LFTs are improving. Microbiology is noted. ASSESSMENT AND PLAN: A 57-year-old female with systemic inflammatory response syndrome due to acute pancreatitis due to hypertriglyceridemia, history of Cony esophagitis, oral candidiasis and human immunodeficiency virus and acquired immune deficiency syndrome, noncompliant with the human immunodeficiency virus medications. Last CD-4 count was 163 and with Clostridium difficile and history of left upper lobe healthcare-associated pneumonia and erosive gastritis and hypertension. Thus far, the patient is currently off of antibiotics and requesting to go home. Human immunodeficiency virus workup ordered and human immunodeficiency virus medication compliance and adherence education given. The patient to follow up in the office. Meliton Rodriguez MD
--- NOTE | 2017-08-16 09:31 | PN ---
DATE: SUBJECTIVE: The patient is currently seen in the budget controller hours in the TCU. She apparently had a comfortable night. She still continues to complain of chronic abdominal discomfort and pain. The patient is scheduled for dialysis later today. She states that she would like to go home after dialysis today. MEDICATIONS: Medication list reviewed. The patient is on Atarax, Prezista, p.r.n. Dilaudid, Tivicay, Ecotrin, folic acid, Klonopin, Xyzal, Lipitor, Lopressor, Lovaza, Mepron, Mycelex, Norvir, PhosLo, Plavix, Protonix, Reglan, Remeron, Synthroid, Thera-Tabs and Tylenol p.r.n. PHYSICAL EXAMINATION VITAL SIGNS: Blood pressure 112/71, temperature 98, respiratory rate 18 with a pulse of 72. HEENT: Shows her to be normocephalic, atraumatic. Conjunctivae are pale. Sclerae nonicteric. NECK: Supple. No neck vein distention. CHEST: Clear to auscultation and percussion. No rales, rhonchi or wheezing. CARDIOVASCULAR: Regular rate and rhythm without audible murmurs, rubs or gallops. ABDOMEN: Soft, nondistended. Mild tenderness on palpation of her midepigastric area. This is chronic in nature. No rebound, no guarding. EXTREMITIES: Show left upper extremity AV fistula. No lower extremity cyanosis, clubbing or edema. LABORATORY DATA AND IMAGING: Last CBC: White blood cell count 5.4, hemoglobin low at 8.4, platelet count is 55,000. Chemistries: Potassium low at 3.2. BUN is 25 with a creatinine of 5.5 yesterday, glucose of 124, calcium 7.9, phosphorus 3.9 with a magnesium level of 1.8. B12 level was greater than 1000. Ferritin level was elevated. Folate level was normal. Serum protein electrophoresis is pending. ASSESSMENT: 1. Chronic abdominal pain, midepigastric pain. No evidence radiographically for pancreatitis. Amylase and lipase were borderline elevated and now normal, but her liver enzymes remain mildly elevated, AST 173 with an ALT of 145. The patient had been evaluated by GI for this. 2. Status post fever, no evidence for sepsis. All cultures were negative. The patient is currently off empiric IV therapy. 3. End-stage renal disease. The patient will continue Friday, , Friday dialysis schedule. She can dialyze on a 3.0 K bath in light of her potassium level 3.2 to 3.4. 4. History of human immunodeficiency virus. The patient will continue highly active antiretroviral therapy. Perhaps mild elevation of her liver enzymes secondary to meds. Perhaps mild depression in her platelet count is secondary to medications. The patient is being evaluated by both GI and Hematology. 5. Past history of esophageal ulcer and erosive gastritis, followed by GI. The patient remains on protein pump inhibition therapy. 6. History of anemia secondary to chronic kidney disease. The patient will receive maximum dose of Aranesp with dialysis. 7. History of secondary hyperparathyroidism. The patient will continue PhosLo. Repeat phosphorus level was excellent at 3.9. PLAN: 1. Lengthy discussion with the patient. I explained to her that I can no longer prescribe her narcotic analgesics in light of the fact that she was admitted to a detox program at [facility] for the use of narcotics. I have explained to her she should order make up clerk with a pain control doctor for her chronic abdominal pain. 2. Hemodialysis today as per routine. 3. From a renal standpoint possible discharge home post dialysis today is acceptable. David Crump MD
[2017-08-16] MEDS: DARUNAVIR 800 MG PO SCH (09:39)
[2017-08-16] MEDS: Omega-3-Acid Ethyl Esters 1 GM Cap PO SCH ×2 (10:52→17:48)
[2017-08-16] MEDS: Atovaquone 750 mg/5 ml Susp UD PO SCH ×2 (10:52→17:48)
[2017-08-16] MEDS: Multivitamin Therapeutic Tab PO SCH (10:53)
[2017-08-16 14:35] LABS: BASO # 0.02 K/mm3 (0.0-2.0); BASO % 0.8 % (0.0-3.0); EOS # 0.2 (0.0-0.7); EOS % 5.8 % (1.5-5.0); GRAN # 0.96 (1.4-6.5); GRAN % 36.8 % (50.0-68.0); HEMOGLOBIN 8.4 g/dL (12.0-16.0); LYMPH # 1.2 (1.2-3.4); LYMPH % 45.4 % (22.0-35.0); MEAN CELL VOLUME 96.6 fl (80.0-105.0); MEAN CORPUSCULAR HEMOGLOBIN 31.5 pg (25.0-35.0); MEAN CORPUSCULAR HGB CONC 32.6 g/dl (31.0-37.0); MEAN PLATELET VOLUME 12.2 fl (7.0-11.0); MONO # 0.3 (0.1-0.6); MONO % 11.2 % (1.0-6.0); RBC 2.67 10^6/uL (3.5-6.1); RED CELL DISTRIBUTION WIDTH 16.5 % (11.5-14.5)
[2017-08-16 14:42] LABS: WHITE BLOOD COUNT 2.6 10^3/ul (4.5-11.0)
[2017-08-16 14:44] LABS: ALB/GLOB RATIO 0.8 (1.1-1.8); ALBUMIN 3.1 g/dL (3.0-4.8); CALCIUM 8.1 mg/dL (8.4-10.5)
--- NOTE | 2017-08-16 22:17 | CON ---
DATE: HISTORY OF PRESENT ILLNESS: The patient is a 57-year-old -[place] female who is being followed by Psychiatry and Transitional Care Unit due to her symptoms. Dr. Almaraz met with the patient and discontinued Paxil and implemented Remeron, which has been beneficial per the patient thus far. Dr. Almaraz's notes indicate that the patient is pleasant and much improved compared to prior couple of sessions with her. I met with the patient at bedside and I agree with Dr. Almaraz's assessment. The patient does appear to be friendly and affect is generally reactive and engaged during my interview with her today. She is alert and oriented to month, year, locations and circumstances. Her focus is fair. Her thought process is coherent and the responses are relevant and consistent. There had been no behavior issues while she is in the Transitional Care Unit. The patient reports that she is tolerating the medications and denies having any side effects from them and indicates that she is sleeping very well and subjectively, feels that her mood is better and her anxiety is "so far so good". The patient also reports that her daughter and her granddaughter visited yesterday and they had a good visit. The patient also reports her appetite is much better. RELEVANT PSYCHIATRIC MEDICATIONS: Include Klonopin 0.5 mg at bedtime, Remeron 30 mg p.o. at bedtime. IMPRESSION: Major depressive disorder, rule out contribution of mood disorder due to general medical condition. Continue with current management. The patient is tolerating Remeron 30 mg at bedtime and Klonopin 0.5 mg at bedtime very well. Her mood is improving. She is objectively looking brighter and consistently shows improvement in her mood and functioning. There do not appear to be any acute psychiatric issues that are concerning at this point. She is organized. She denies any thoughts to harm herself or others. She is not psychotic. The patient also denies any side effect from her medications and subjectively, reports improvement. Psychiatry will sign off at this time. Please re-consult as needed if there should be any acute changes in her functioning and we will be happy to follow up with her again. Mary Jo Ahmadi MD
--- NOTE | 2017-08-17 02:55 | CP.PCM.PN ---
Subjective - Date & Time of Evaluation Date of Evaluation: 08/16/17 Time of Evaluation: 17:00 - Subjective Subjective: No complaints. Objective - Vital Signs/Intake and Output Vital Signs (last 24 hours): Temp Pulse Resp BP Pulse Ox 98.3 F 82 18 147/84 99 08/16/17 11:08 08/16/17 11:08 08/16/17 11:08 08/16/17 17:55 08/16/17 11:08 - Medications Medications: Current Medications Acetaminophen (Tylenol 325mg Tab) 650 mg PO Q4H PRN PRN Reason: Fever >100.4 F Aspirin (Ecotrin) 81 mg PO 0800 [facility] Last Admin: 08/16/17 08:23 Dose: 81 mg Atorvastatin Calcium (Lipitor) 20 mg PO DIN [facility] Last Admin: 08/16/17 17:48 Dose: 20 mg Atovaquone (Mepron) 750 mg PO BID [facility] PRN Reason: Protocol Last Admin: 08/16/17 17:48 Dose: 750 mg Calcium Acetate (Phoslo) 667 mg PO WM [facility] Last Admin: 08/16/17 17:48 Dose: 667 mg Clonazepam (Klonopin) 0.5 mg PO HS [facility] PRN Reason: Protocol Last Admin: 08/16/17 21:43 Dose: 0.5 mg Clopidogrel Bisulfate (Plavix) 75 mg PO DAILY [facility] Last Admin: 08/16/17 10:53 Dose: 75 mg Clotrimazole (Mycelex Tejal) 10 mg MT 5XD [facility] Last Admin: 08/16/17 21:44 Dose: 10 mg Folic Acid (Folic Acid) 1 mg PO DAILY [facility] Last Admin: 08/16/17 10:51 Dose: 1 mg Hydroxyzine HCl (Atarax) 25 mg PO BID PRN PRN Reason: Anxiety Last Admin: 08/15/17 10:14 Dose: 25 mg Levothyroxine Sodium (Synthroid) 25 mcg PO 0600 [facility] Last Admin: 08/16/17 06:19 Dose: Not Given Metoclopramide HCl (Reglan) 5 mg PO ACHS [facility] Last Admin: 08/16/17 21:44 Dose: 5 mg Metoprolol Tartrate (Lopressor) 50 mg PO BID [facility] Last Admin: 08/16/17 17:55 Dose: 50 mg Mirtazapine (Remeron) 30 mg PO HS [facility] Last Admin: 08/16/17 21:44 Dose: 30 mg Multivitamins (Thera Tab) 1 tab PO DAILY [facility] Last Admin: 08/16/17 10:53 Dose: 1 tab Non-Formulary Medication (Darunavir [Prezista]) 800 mg PO DAILY [facility] Last Admin: 08/16/17 09:39 Dose: Not Given Non-Formulary Medication (Dolutegravir Sodium [Tivicay]) 50 mg PO DAILY [facility] Last Admin: 08/16/17 09:39 Dose: Not Given Non-Formulary Medication (Levocetirizine Dihydrochloride [Xyzal]) 5 mg PO PRN PRN PRN Reason: Allergy symptoms [id number] Ethyl Esters (Lovaza) 1 gm PO BID [facility] Last Admin: 08/16/17 17:48 Dose: 1 gm Pantoprazole Sodium (Protonix Ec Tab) 40 mg PO 0600,1600 [facility] Last Admin: 08/16/17 17:48 Dose: 40 mg Ritonavir (Norvir) 100 mg PO DAILY [facility] PRN Reason: Protocol Last Admin: 08/16/17 10:52 Dose: 100 mg - Labs Labs: 08/16/17 14:18 08/16/17 14:18 - Head Exam Head Exam: ATRAUMATIC - Eye Exam Eye Exam: Normal appearance - ENT Exam ENT Exam: Mucous Membranes Dry - Respiratory Exam Respiratory Exam: NORMAL BREATHING PATTERN - Cardiovascular Exam Cardiovascular Exam: +S1, +S2 - GI/Abdominal Exam GI & Abdominal Exam: Normal Bowel Sounds Assessment and Plan (1) Thrombocytopenia Assessment & Plan: f/u heparin Ab plt count slightly improved ? HIT ? ITP Status: Acute (2) Anemia Assessment & Plan: anemia of HIV and CKD on EPO Status: Acute (3) Leukopenia Assessment & Plan: with mild neutropenia HIV Status: Acute
[2017-08-17] MEDS: Pantoprazole 40 mg EC Tab PO SCH ×2 (06:18→17:17)
[2017-08-17] MEDS: Levothyroxine 25 MCG TAB PO SCH (06:18)
[2017-08-17 06:46] VITALS: RESP 16
--- NOTE | 2017-08-17 08:33 | CP.PCM.PN ---
Subjective - Date & Time of Evaluation Date of Evaluation: 08/17/17 Time of Evaluation: 08:00 - Subjective Subjective: (covering for Dr. Rubalcava) Patient is lying in bed in room 321 this morning. She says she woke up in the middle of the night with shortness of breath. However, once oxygen was placed on her, she felt better. Objective - Vital Signs/Intake and Output Vital Signs (last 24 hours): Temp Pulse Resp BP Pulse Ox 98.2 F 89 16 146/86 98 08/17/17 06:00 08/17/17 06:00 08/17/17 06:00 08/17/17 06:00 08/17/17 06:00 - Medications Medications: Current Medications Acetaminophen (Tylenol 325mg Tab) 650 mg PO Q4H PRN PRN Reason: Fever >100.4 F Aspirin (Ecotrin) 81 mg PO 0800 [facility] Last Admin: 08/17/17 08:03 Dose: 81 mg Atorvastatin Calcium (Lipitor) 20 mg PO DIN [facility] Last Admin: 08/16/17 17:48 Dose: 20 mg Atovaquone (Mepron) 750 mg PO BID [facility] PRN Reason: Protocol Last Admin: 08/16/17 17:48 Dose: 750 mg Calcium Acetate (Phoslo) 667 mg PO WM [facility] Last Admin: 08/17/17 08:03 Dose: 667 mg Clonazepam (Klonopin) 0.5 mg PO HS [facility] PRN Reason: Protocol Last Admin: 08/16/17 21:43 Dose: 0.5 mg Clopidogrel Bisulfate (Plavix) 75 mg PO DAILY [facility] Last Admin: 08/16/17 10:53 Dose: 75 mg Clotrimazole (Mycelex Tejal) 10 mg MT 5XD [facility] Last Admin: 08/17/17 06:19 Dose: 10 mg Folic Acid (Folic Acid) 1 mg PO DAILY [facility] Last Admin: 08/16/17 10:51 Dose: 1 mg Hydroxyzine HCl (Atarax) 25 mg PO BID PRN PRN Reason: Anxiety Last Admin: 08/15/17 10:14 Dose: 25 mg Levothyroxine Sodium (Synthroid) 25 mcg PO 0600 [facility] Last Admin: 08/17/17 06:18 Dose: 25 mcg Metoclopramide HCl (Reglan) 5 mg PO ACHS [facility] Last Admin: 08/17/17 06:32 Dose: 5 mg Metoprolol Tartrate (Lopressor) 50 mg PO BID [facility] Last Admin: 08/16/17 17:55 Dose: 50 mg Mirtazapine (Remeron) 30 mg PO HS [facility] Last Admin: 08/16/17 21:44 Dose: 30 mg Multivitamins (Thera Tab) 1 tab PO DAILY [facility] Last Admin: 08/16/17 10:53 Dose: 1 tab Non-Formulary Medication (Darunavir [Prezista]) 800 mg PO DAILY [facility] Last Admin: 08/16/17 09:39 Dose: Not Given Non-Formulary Medication (Dolutegravir Sodium [Tivicay]) 50 mg PO DAILY [facility] Last Admin: 08/16/17 09:39 Dose: Not Given Non-Formulary Medication (Levocetirizine Dihydrochloride [Xyzal]) 5 mg PO PRN PRN PRN Reason: Allergy symptoms [id number] Ethyl Esters (Lovaza) 1 gm PO BID [facility] Last Admin: 08/16/17 17:48 Dose: 1 gm Pantoprazole Sodium (Protonix Ec Tab) 40 mg PO 0600,1600 [facility] Last Admin: 08/17/17 06:18 Dose: 40 mg Ritonavir (Norvir) 100 mg PO DAILY [facility] PRN Reason: Protocol Last Admin: 08/16/17 10:52 Dose: 100 mg - Labs Labs: 08/16/17 14:18 08/16/17 14:18 - Constitutional Appears: No Acute Distress - Head Exam Head Exam: ATRAUMATIC, NORMOCEPHALIC - Respiratory Exam Respiratory Exam: Clear to Ausculation Bilateral, NORMAL BREATHING PATTERN - Cardiovascular Exam Cardiovascular Exam: REGULAR RHYTHM, +S1, +S2 - GI/Abdominal Exam GI & Abdominal Exam: Soft, Normal Bowel Sounds. absent: Tenderness - Neurological Exam Neurological Exam: Alert, Awake, Oriented x3 Assessment and Plan - Assessment and Plan (Free Text) Assessment: Gait dysfunction ESRD on HD Pancreatitis SIRS HIV Plan: Patient is seen this morning. She says she woke up with shortness of breath in the middle of the night, relieved with oxygen via nasal cannula. Patient does take oxygen at home. will check CXR today. continue dialysis as per nephrology. continue physical therapy.
[2017-08-17] MEDS: DARUNAVIR 800 MG PO SCH (09:22)
[2017-08-17] MEDS: Omega-3-Acid Ethyl Esters 1 GM Cap PO SCH ×2 (09:55→17:17)
[2017-08-17] MEDS: Atovaquone 750 mg/5 ml Susp UD PO SCH ×2 (09:55→17:18)
[2017-08-17] MEDS: Multivitamin Therapeutic Tab PO SCH (09:56)
--- NOTE | 2017-08-17 11:43 | PN ---
DATE: SUBJECTIVE: The patient is currently seen en route for chest x-ray. She did have an episode of shortness of breath yesterday. She only had a minimal amount of fluid removed with dialysis yesterday. MEDICATIONS: Medication list reviewed. The patient is currently on Atarax, Prezista, Tivicay, Ecotrin, folic acid, Klonopin, Xyzal, Lipitor, Lopressor, Lovaza, Mepron, Mycelex, Norvir, PhosLo, Plavix, Protonix, Reglan, Remeron, Synthroid, Thera-Tab and Tylenol p.r.n. OBJECTIVE: VITAL SIGNS: Blood pressure 146/86, temperature 98.2, respiratory rate 16 with a pulse of 89. HEENT: Exam shows her to be normocephalic, atraumatic. Conjunctivae are pale. Sclerae are nonicteric. NECK: Supple. No neck vein distention. CHEST: Clear to auscultation and percussion. No rales, rhonchi or wheezing. CARDIOVASCULAR: Regular rate and rhythm without audible murmurs, rubs or gallops. ABDOMEN: Soft. Nondistended. Mild tenderness in the midepigastric area, which is chronic in nature. No rebound or guarding. EXTREMITIES: Show a left upper extremity AV fistula. Positive thrill. Positive bruit. No lower extremity cyanosis, clubbing or edema. LABORATORY DATA AND IMAGING: CBC from yesterday, white blood cell count low at 2.6, hemoglobin 8.4, platelet count is 60,000, positive pancytopenia. Chemistries show a potassium of 3.1, sodium 135, BUN 37 with a creatinine of 7.1, glucose 124, calcium is 8.1 with an albumin of 3.1, corrects to normal. Phosphorus low at 2. Magnesium low at 1.7. Serum protein electrophoresis is pending. ASSESSMENT: 1. Chronic abdominal pain. At present, the patient continues on p.r.n. narcotic medications. The attempt is to decrease her need for these medications. The patient's amylase and lipase were borderline on admission to acute care. Liver enzymes were mildly elevated. The patient has a slow decrease in her elevated liver enzymes. She had been evaluated by Gastroenterology. Perhaps this elevation is secondary to medications for human immunodeficiency virus. 2. All cultures negative. The patient is currently off empiric IV antibiotic therapy. No evidence for sepsis. 3. History of end-stage renal disease. The patient will continue Friday, , Friday dialysis. If necessary, we will increase her potassium as to 4. Her oral intake has been diminished, likely the cause of her hypokalemia. 4. History of human immunodeficiency virus. The patient will continue HAART therapy. 5. Pancytopenia. Perhaps secondary to medications plus chronic kidney disease contributing to her anemia. The patient is being followed by both Gastroenterology and Hematology. 6. Past history of esophageal ulcer and erosive gastritis, followed by Gastroenterology. She remains on proton pump inhibitor therapy. 7. History of secondary hyperparathyroidism. Phosphorus level is now low. PhosLo will be placed on hold. PLAN: 1. Check chest x-ray that was done earlier today. Perhaps her mild shortness of breath is secondary to her anemia. We will try and keep her hemoglobin in the 9-10 range. 2. Minimize any exposure to narcotic analgesics. The patient had an admission to a detox program at [facility]. Continue rehabilitation in the TCU. David Crump MD
--- NOTE | 2017-08-17 14:15 | PN ---
DATE: 08/17/2017 SUBJECTIVE: The patient is in bed, in no acute distress, nontoxic. No fevers. PHYSICAL EXAMINATION VITAL SIGNS: Temperature is 98, blood pressure is 112/70, respiratory rate of 16. HEENT: Examination is unremarkable. NECK: Supple. LUNGS: Have decreased breath sounds. HEART: Normal S1, S2. ABDOMEN: Soft, nontender. DATA: Laboratory examination reveals the patient's white count of 2.6, hemoglobin of 8, platelets of 69. Chemistries are noted, the BUN of 37, creatinine of 7.1. ASSESSMENT AND PLAN: This is a 57-year-old female, room 321, bed 1, with systemic inflammatory response syndrome due to acute pancreatitis and hypertriglyceridemia, history of Cony esophagitis, oral candidiasis and human immunodeficiency virus, noncompliant with the human immunodeficiency virus medications, her last CD-4 count was 163 and the patient with pseudomembranous colitis with history of left upper lobe healthcare-associated pneumonia, erosive gastritis and hypertension. Currently off of antibiotics. Further education regarding HIV medication compliance is needed. The patient did have episode of shortness of breath this morning and the chest x-ray is ordered. We will follow up on the chest x-ray. Meliton Rodriguez MD
--- NOTE | 2017-08-17 15:13 | RAD ---
HISTORY: SOB COMPARISON: 08/09/2017 TECHNIQUE: Chest PA and lateral FINDINGS: LUNGS: No active pulmonary disease. PLEURA: No significant pleural effusion identified. No pneumothorax apparent. CARDIOVASCULAR: Mild cardiomegaly OSSEOUS STRUCTURES: No significant abnormalities. VISUALIZED UPPER ABDOMEN: Normal. OTHER FINDINGS: None. IMPRESSION: No infiltrate. Mild cardiomegaly.
[2017-08-18] MEDS: Pantoprazole 40 mg EC Tab PO SCH (06:14)
[2017-08-18] MEDS: Levothyroxine 25 MCG TAB PO SCH (06:14)
[2017-08-18 06:23] VITALS: BP 138/76; TEMP 98.5; O2SAT 97
[2017-08-18 07:14] LABS: BASO # 0.01 K/mm3 (0.0-2.0); BASO % 0.2 % (0.0-3.0); EOS # 0.1 (0.0-0.7); EOS % 2.4 % (1.5-5.0); GRAN # 3.11 (1.4-6.5); GRAN % 57.1 % (50.0-68.0); HEMOGLOBIN 8.5 g/dL (12.0-16.0); LYMPH # 1.6 (1.2-3.4); LYMPH % 28.6 % (22.0-35.0); MEAN CELL VOLUME 98.5 fl (80.0-105.0); MEAN CORPUSCULAR HEMOGLOBIN 31.4 pg (25.0-35.0); MEAN CORPUSCULAR HGB CONC 31.8 g/dl (31.0-37.0); MEAN PLATELET VOLUME 11.7 fl (7.0-11.0); MONO # 0.6 (0.1-0.6); MONO % 11.7 % (1.0-6.0); RBC 2.71 10^6/uL (3.5-6.1); RED CELL DISTRIBUTION WIDTH 16.8 % (11.5-14.5); WHITE BLOOD COUNT 5.5 10^3/ul (4.5-11.0)
[2017-08-18 07:43] LABS: ALB/GLOB RATIO 0.9 (1.1-1.8); ALBUMIN 3.3 g/dL (3.0-4.8); CALCIUM 8.7 mg/dL (8.4-10.5)
--- NOTE | 2017-08-18 08:20 | CP.PCM.PN ---
Subjective - Date & Time of Evaluation Date of Evaluation: 08/18/17 Time of Evaluation: 08:00 - Subjective Subjective: (covering for Dr. Rubalcava) Patient is resting comfortably. She says she did not sleep well last night. No other complaints. Objective - Vital Signs/Intake and Output Vital Signs (last 24 hours): Temp Pulse Resp BP Pulse Ox 98.5 F 85 16 138/76 97 08/18/17 06:00 08/18/17 06:00 08/18/17 06:00 08/18/17 06:00 08/18/17 06:00 - Medications Medications: Current Medications Acetaminophen (Tylenol 325mg Tab) 650 mg PO Q4H PRN PRN Reason: Fever >100.4 F Aspirin (Ecotrin) 81 mg PO 0800 [facility] Last Admin: 08/17/17 08:03 Dose: 81 mg Atorvastatin Calcium (Lipitor) 20 mg PO DIN [facility] Last Admin: 08/17/17 17:17 Dose: 20 mg Atovaquone (Mepron) 750 mg PO BID [facility] PRN Reason: Protocol Last Admin: 08/17/17 17:18 Dose: 750 mg Clonazepam (Klonopin) 0.5 mg PO HS [facility] PRN Reason: Protocol Last Admin: 08/18/17 01:20 Dose: 0.5 mg Clopidogrel Bisulfate (Plavix) 75 mg PO DAILY [facility] Last Admin: 08/17/17 09:55 Dose: 75 mg Clotrimazole (Mycelex Tejal) 10 mg MT 5XD [facility] Last Admin: 08/18/17 06:14 Dose: 10 mg Folic Acid (Folic Acid) 1 mg PO DAILY [facility] Last Admin: 08/17/17 09:54 Dose: 1 mg Hydroxyzine HCl (Atarax) 25 mg PO BID PRN PRN Reason: Anxiety Last Admin: 08/15/17 10:14 Dose: 25 mg Levothyroxine Sodium (Synthroid) 25 mcg PO 0600 [facility] Last Admin: 08/18/17 06:14 Dose: 25 mcg Metoclopramide HCl (Reglan) 5 mg PO ACHS [facility] Last Admin: 08/17/17 23:49 Dose: Not Given Metoprolol Tartrate (Lopressor) 50 mg PO BID [facility] Last Admin: 08/17/17 17:17 Dose: Not Given Mirtazapine (Remeron) 30 mg PO HS [facility] Last Admin: 08/18/17 01:21 Dose: 30 mg Multivitamins (Thera Tab) 1 tab PO DAILY [facility] Last Admin: 08/17/17 09:56 Dose: 1 tab Non-Formulary Medication (Darunavir [Prezista]) 800 mg PO DAILY [facility] Last Admin: 08/17/17 09:22 Dose: Not Given Non-Formulary Medication (Dolutegravir Sodium [Tivicay]) 50 mg PO DAILY [facility] Last Admin: 08/17/17 09:22 Dose: Not Given Non-Formulary Medication (Levocetirizine Dihydrochloride [Xyzal]) 5 mg PO PRN PRN PRN Reason: Allergy symptoms Vnzca-2-Hita Ethyl Esters (Lovaza) 1 gm PO BID [facility] Last Admin: 08/17/17 17:17 Dose: Not Given Pantoprazole Sodium (Protonix Ec Tab) 40 mg PO 0600,1600 [facility] Last Admin: 08/18/17 06:14 Dose: 40 mg Ritonavir (Norvir) 100 mg PO DAILY [facility] PRN Reason: Protocol Last Admin: 08/17/17 09:55 Dose: 100 mg - Labs Labs: 08/18/17 06:30 08/18/17 06:30 - Constitutional Appears: No Acute Distress - Head Exam Head Exam: ATRAUMATIC, NORMOCEPHALIC - Respiratory Exam Respiratory Exam: Clear to Ausculation Bilateral, NORMAL BREATHING PATTERN - Cardiovascular Exam Cardiovascular Exam: +S1, +S2 - GI/Abdominal Exam GI & Abdominal Exam: Soft, Normal Bowel Sounds. absent: Tenderness - Neurological Exam Neurological Exam: Alert, Awake, Oriented x3 Assessment and Plan - Assessment and Plan (Free Text) Assessment: Gait dysfunction ESRD on HD HIV HTN Plan: Patient is seen this morning. Yesterday she complained of waking up feeling short of breath, which was relieved with oxygen. CXR is negative. continue oxygen via nasal cannula. Patient says she has oxygen at home. continue dialysis as per Dr. Shukla/Dr Crump. Patient is off antibiotics. continue physical therapy. Dr. Rubalcava will see the patient tomorrow.
--- NOTE | 2017-08-18 08:52 | PN ---
DATE: 08/18/2017 PULMONARY NOTE SUBJECTIVE: The patient appears very comfortable this morning. She is not short of breath at rest. OBJECTIVE VITAL SIGNS: Temperature is 98.5, pulse 85, respirations 16, blood pressure 138/76. Oxygen saturation on room air is 97%. HEENT: Normocephalic, atraumatic. No JVD. CARDIOVASCULAR: Systolic ejection murmur at the lower left sternal border. No S3 gallop. LUNGS: Mild crackles at both bases. No rhonchi. No wheezing. EXTREMITIES: Less edema. No cyanosis, no clubbing. Calves are nontender to palpation. GASTROINTESTINAL: Abdomen is soft. It is much less distended and tender to palpation. Bowel sounds are positive. SKIN: No acute rash. NEUROLOGIC: Exam limited at the present time. PERTINENT LABORATORY DATA: Chest x-ray was done yesterday and reviewed. There is no acute change. IMPRESSION 1. Acute pancreatitis. 2. End-stage renal disease. 3. Chronic congestive heart failure. 4. Coronary artery disease. 5. Chronic interstitial changes. 6. Anemia. Plan: The patient appears very comfortable this morning. She is not short of breath at rest. She has much less abdominal pain. She does state to feeling much, much better overall. On physical exam, there is no significant bronchospasm noted. In addition, the oxygen saturation on room air is 97%. Inputs by Infectious Disease and Renal are noted. The clinical status of this patient is significantly improved overall. I will discuss the above with the attending physician. David Avila MD MTDHarsh
[2017-08-18] MEDS: DARUNAVIR 800 MG PO SCH (09:19)
[2017-08-18] MEDS: Omega-3-Acid Ethyl Esters 1 GM Cap PO SCH ×2 (09:21→11:10)
[2017-08-18] MEDS: Multivitamin Therapeutic Tab PO SCH ×2 (09:22→11:12)
[2017-08-18] MEDS: Atovaquone 750 mg/5 ml Susp UD PO SCH ×2 (09:22→11:10)
--- NOTE | 2017-08-18 09:34 | PN ---
DATE: 08/16/2017 PULMONARY PROGRESS NOTE SUBJECTIVE: The patient was seen and examined on Transitional Care Unit. She is sitting up in chair, not using supplemental oxygen and appears to be comfortable. PHYSICAL EXAMINATION VITAL SIGNS: Her temperature is 98.4, pulse 80, respirations 18, blood pressure is 155/80, oxygen saturation on room air is 97%. HEAD, EARS, NOSE, AND THROAT: Within normal limits. NECK: Supple with no jugular vein distention. CARDIOVASCULAR: Systolic ejection murmur at the lower left sternal border. No S3 gallop. LUNGS: Few rhonchi, both bases. No wheezing. EXTREMITIES: Positive for mild edema. No cyanosis. GASTROINTESTINAL: Soft, nontender. No organomegaly. SKIN: No acute skin rash. NEUROLOGIC: No focal deficits. ASSESSMENT: 1. Acute pancreatitis. 2. End stage renal disease. 3. Chronic congestive heart failure. 4. Chronic obstructive pulmonary disease. 5. Interstitial lung changes. PLAN: The patient appears comfortable. She is not short of breath. She is off oxygen. There is no significant bronchospasm on physical examination and her oxygen saturation is good on room air. We will follow maria de jesus. Eliu Brown MD
[2017-08-18] MEDS ORDERED: Albuterol-Ipratrop 3 mg / 0.5 (3 ml) UD IH PRN (10:36)
[2017-08-18 11:11] VITALS: PULSE 85
[2017-08-18] MEDS ORDERED: Morphine 4 mg/ml ISec IVP STA ×2 (11:56→13:03)
[2017-08-18 12:26] LABS: ARTERIAL BLOOD GAS HCO3 23.6 mmol/L (21-28); ARTERIAL BLOOD GAS HEMOGLOBIN 8.4 g/dL (11.7-17.4); ARTERIAL BLOOD GAS O2 CAPACITY 11.6 mL/dl (16-24); ARTERIAL BLOOD GAS PCO2 34 mm/Hg (35-45); ARTERIAL BLOOD GAS PH 7.45 (7.35-7.45); ARTERIAL BLOOD GAS TCO2 24.6 mmol.L (22-28)
[2017-08-18 12:33] LABS: BASO # 0.03 K/mm3 (0.0-2.0); BASO % 0.3 % (0.0-3.0); EOS # 0.2 (0.0-0.7); EOS % 1.7 % (1.5-5.0); GRAN # 6.13 (1.4-6.5); GRAN % 56.5 % (50.0-68.0); HEMOGLOBIN 9.6 g/dL (12.0-16.0); LYMPH # 3.6 (1.2-3.4); MEAN CELL VOLUME 99.3 fl (80.0-105.0); MEAN CORPUSCULAR HEMOGLOBIN 31.4 pg (25.0-35.0); MEAN CORPUSCULAR HGB CONC 31.6 g/dl (31.0-37.0); MONO # 0.9 (0.1-0.6); MONO % 8.5 % (1.0-6.0); RBC 3.06 10^6/uL (3.5-6.1); RED CELL DISTRIBUTION WIDTH 16.9 % (11.5-14.5); WHITE BLOOD COUNT 10.8 10^3/ul (4.5-11.0)
[2017-08-18 12:41] LABS: INR 1.11 (0.93-1.08); PROTHROMBIN TIME 12.8 SECONDS (9.4-12.5)
[2017-08-18 12:48] LABS: ALB/GLOB RATIO 0.9 (1.1-1.8); ALBUMIN 3.8 g/dL (3.0-4.8); CALCIUM 9.1 mg/dL (8.4-10.5)
[2017-08-18] MEDS ORDERED: Ipratropium 0.02% Inhal Soln (0.5 mg/2.5 ml) UD IH STA (12:49)
[2017-08-18] MEDS ORDERED: Levalbuterol 1.25 MG/3 ML Inhal Soln UD IH STA (12:50)
[2017-08-18 12:53] LABS: TROPONIN I 0.03 ng/mL
--- NOTE | 2017-08-18 13:07 | PCM.RRT ---
<[place] - Last Filed: 08/18/17 13:32> FOOD AND NUTRITION PROFESSOR Nurse Assessment - Situation Date: 08/18/17 Time FOOD AND NUTRITION PROFESSOR was called: 11:40 FOOD AND NUTRITION PROFESSOR Responder Arrival Time: 11:41 FOOD AND NUTRITION PROFESSOR Location:: Transitional Care Unit Room Number: 321-1 FOOD AND NUTRITION PROFESSOR Reason for Call: Chest Pain, Respiratory Distress FOOD AND NUTRITION PROFESSOR Called By: RN - IV IV Inserted during FOOD AND NUTRITION PROFESSOR?: Yes - Respiratory Oxygen Delivery Method: Nasal Cannula @L/min Oxygen Flow Rate: 2 Received Nebulizer Treatments:: Yes Was the Patient Ventilated with Bag/Mask 100% O2?: No Secretions Suctioned?: No Was the Patient Intubated?: No Was the Patient Placed on a Ventilator?: No - Diagnostic Test Ordered EKG: Yes (No ST elevation and No ST depression in V1) Chest X-Ray: Yes (venous cephalization, read by me) - Stat Labs Ordered FOOD AND NUTRITION PROFESSOR Stat Labs Ordered: CBC, BMP, PT/PTT, TROPONIN, ABG CPR started during FOOD AND NUTRITION PROFESSOR?: No - Vital Signs Vital Sign: HR 112, RR 20s, POx 96 on 2L - Finger Stick Blood Glucose Finger Stick Blood Glucose: 105 - Time FOOD AND NUTRITION PROFESSOR Ended Time FOOD AND NUTRITION PROFESSOR Ended: 13:00 - Recommendations Notifications: Attending Physician, Consultations (Dr Shukla) - Neurological Status (Select all that apply): Alert, Responsive, Oriented, Verbal, Follows Commands - Respiratory Oxygen Delivery Method: Nasal Cannula @L/min Oxygen Flow Rate: 2 - Constitutional Appears: In Acute Distress - Head Head Exam: ATRAUMATIC, NORMAL INSPECTION, NORMOCEPHALIC - Eyes Eye Exam: EOMI, Normal appearance, PERRL. absent: Scleral icterus - Respiratory Exam Respiratory Exam: Chest Wall Tenderness (Reproducible chest pain at L mid- sternal chest), Rales (all lung bases), Rhonchi, Respiratory Distress - Cardiovascular Exam Cardiovascular Exam: REGULAR RHYTHM. absent: JVD - GI/Abdominal Exam GI & Abdominal Exam: Soft. absent: Tenderness - Extremities Exam Extremities Exam: Normal Capillary Refill. absent: Pedal Edema Plan - Assessment of Findings&Treatment Plan Dyspnea likely due to fluid overload Dyspneic and reproducible chest pain r/o ACS; likely atypical Hx CAD with multiple stents ESRD on HD, anuric respiratory alkalosis with hypoxemia (pH 7.45, pCO2 34, pO2 60) New pink throthy sputum, Questionable flash pulm edema - O2 PRN (Up to 6L Facemask, now down to 4L) - CBC, CMP, Mg, Phos, trops, coags, BNP - Trops: 0.03, baseline - EKG: Sinus tachy at 112, no specifict ST/TW changes - CXR - Xopenex/ipratropium x 1 - Morphine 1mg x 2 for CP. - Aspirin 325 stat - Contacted PMD, Dr. [facility], who wanted pt to be re-admitted via ED and ICU consult - Contact Dr. Derrick Tran, record librarian s/r/d/w Dr. Victor <Yunior Victor - Last Filed: 08/18/17 16:15> Attending/Attestation - Attestation I have personally seen and examined this patient.: Yes I have fully participated in the care of the patient.: Yes I have reviewed all pertinent clinical information, including history, physical exam and plan: Yes Notes (Text): 08/18/17 16:11 Patient was seen and examined with medical laboratory assistant in the rapid response. 57 yrs old female with PMH of ESRD, HTN,CAD,SP cardiac stent with hypoxic Resp failure due to fluid overload, going for dialysis. Chest pain, has chest wall tenderness,EKG was reviewed.Patient PMD was informed , planned to transfer patient to ER for further evaluation.
--- NOTE | 2017-08-18 13:42 | RAD ---
HISTORY: sob COMPARISON: 08/17/2017. FINDINGS: LUNGS: The lungs are well inflated. There is worsening pulmonary venous congestion. There is consolidation in the right lower lobe. PLEURA: No significant pleural effusion identified, no pneumothorax apparent. CARDIOVASCULAR: There is persistent moderate cardiomegaly. OSSEOUS STRUCTURES: No significant abnormalities. VISUALIZED UPPER ABDOMEN: Normal. OTHER FINDINGS: None. IMPRESSION: Consolidation in the right lower lobe which may represent pulmonary edema or pneumonia. Follow-up is advised. Mild congestive heart failure.
--- NOTE | 2017-08-18 18:35 | PN ---
DATE: 08/18/2017 SUBJECTIVE: The patient is seen in the room. She is in modest respiratory distress. She is complaining of chest tightness. She is complaining of shortness of breath. PHYSICAL EXAMINATION: GENERAL: Middle-aged lady sitting in bed in modest distress. VITAL SIGNS: Blood pressure 138/76, heart rate 85, respiratory rate 20, temperature 98.5. HEENT: Normocephalic, atraumatic, positive pallor. NECK: Supple, no JVD. LUNGS: Bilateral diffuse rhonchi, crackles right base, equal expansion. CARDIAC: S1 and S2, regular rate and rhythm, no murmur, no rub. ABDOMEN: Obese, distended, soft, nontender, bowel sounds present. EXTREMITIES: No lower extremity edema. INTAKE AND OUTPUT: Not charted. LABORATORY DATA: WBC 10.8, hemoglobin 9.6, hematocrit 30.4, platelets 86. Sodium 142, potassium 3.7, chloride 100, CO2 28, BUN 48, creatinine 8.9, glucose 159, calcium 9.1, AST 71, ALT 79, troponin 0.03. BNP 341,000. CURRENT MEDICATIONS: Atarax, Prezista, Tivicay, DuoNeb, Ecotrin, folic acid, Klonopin, Lipitor, Lopressor, Lovaza, Mepron, Norvir, Plavix, Protonix, Reglan, Remeron, Synthroid, multivitamin, Tylenol. ASSESSMENT AND PLAN: 1. Acute pulmonary edema. 2. Hypoxia. 3. Hypertension. 4. End-stage renal disease. 5. History of coronary artery disease. PLAN: 1. Urgent ultrafiltration. 2. Monitor closely after ultrafiltration. 3. Regular dialysis tomorrow. Meryl Shukla MD
--- NOTE | 2017-08-18 20:07 | CARD ---
APPROVED REPORT EKG Measurement Heart [id number] [place] 140P38 [id number] <Conclusion> Sinus tachycardia Minimal voltage criteria for LVH, may be normal variant Nonspecific ST and T wave abnormality Abnormal ECG
[2017-08-19 11:26] LABS: % CD4 (T HELPER CELL) 8 Percent (30-61); % CD8 (SUPPRESSOR T CELL) 69 Percent (12-42); ABSOLUTE CD4 CELLS 63 Cells/mcL (490-1740); ABSOLUTE CD8 CELLS 569 Cells/mcL (180-1170); ABSOLUTE LYMPHOCYTES 821 Cells/mcL (850-3900); HELPER/SUPPRESSOR RATIO 0.11 Ratio (0.86-5.00)
== END 2017-08-18 15:29 | disposition short-term general hospital (02) | DRG 91 ==
LOC: TRCU 21:27
PROVIDERS: ADMIT Internal Medicine; ATTEND Internal Medicine
PROC: 5A1D70Z Performance of Urinary Filtration, Intermittent, Less than 6 Hours Per Day (ICD-10-PCS; 2017-08-14)
PROC: F07Z9FZ Gait Training/Functional Ambulation Treatment using Assistive, Adaptive, Supportive or Protective Equipment (ICD-10-PCS; principal; 2017-08-16)
PROC: F07Z8ZZ Transfer Training Treatment (ICD-10-PCS; 2017-08-16)
PROC: F08Z0FZ Bathing/Showering Techniques Treatment using Assistive, Adaptive, Supportive or Protective Equipment (ICD-10-PCS; 2017-08-16)
PROC: F08Z1FZ Dressing Techniques Treatment using Assistive, Adaptive, Supportive or Protective Equipment (ICD-10-PCS; 2017-08-16)
PROC: 5A1D70Z Performance of Urinary Filtration, Intermittent, Less than 6 Hours Per Day (ICD-10-PCS; 2017-08-16)
PROC: F07L6UZ Therapeutic Exercise Treatment of Musculoskeletal System - Lower Back / Lower Extremity using Prosthesis (ICD-10-PCS; 2017-08-17)
DX: R26.9 Unspecified abnormalities of gait and mobility (principal); K85.90 Acute pancreatitis without necrosis or infection, unspecified; B20 Human immunodeficiency virus [HIV] disease; N18.6 End stage renal disease; I13.2 Hypertensive heart and chronic kidney disease with heart failure and with stage 5 chronic kidney disease, or end stage renal disease; I50.22 Chronic systolic (congestive) heart failure; D61.818 Other pancytopenia; R65.10 Systemic inflammatory response syndrome (SIRS) of non-infectious origin without acute organ dysfunction; N25.81 Secondary hyperparathyroidism of renal origin; B37.0 Candidal stomatitis; R09.02 Hypoxemia; D63.1 Anemia in chronic kidney disease; D70.9 Neutropenia, unspecified; F32.9 Major depressive disorder, single episode, unspecified; G47.00 Insomnia, unspecified; I25.10 Atherosclerotic heart disease of native coronary artery without angina pectoris; E78.1 Pure hyperglyceridemia; K29.60 Other gastritis without bleeding; J44.9 Chronic obstructive pulmonary disease, unspecified; E87.6 Hypokalemia; Z99.2 Dependence on renal dialysis; I25.2 Old myocardial infarction; Z87.01 Personal history of pneumonia (recurrent); Z87.440 Personal history of urinary (tract) infections; Z87.19 Personal history of other diseases of the digestive system; Z91.19 Patient's noncompliance with other medical treatment and regimen

== ENCOUNTER 2017-08-18 15:08 | Inpatient (IN) | payer MEDICARE, OTHER ==
[2017-08-18 15:12] VITALS: BMI 21.0
[2017-08-18] MEDS ORDERED: Vancomycin 1gm in NS 250ml 1 GM/250 ML BAG IVPB STA (15:44)
[2017-08-18] MEDS ORDERED: Piperacillin/Tazobact 3.375 gm 100 ML IVPB STA (15:44)
[2017-08-18] MEDS ORDERED: Tmp-Smz 16 mg-80 mg/ml Inj IVPB STA (15:45)
--- NOTE | 2017-08-18 15:55 | ED PDOC ---
Arrival/HPI - General Chief Complaint: Shortness Of Breath Time Seen by Provider: 08/18/17 15:16 Historian: Patient - History of Present Illness Narrative History of Present Illness (Text): 08/18/17 15:20 Fannie Perea is a 57 year old female, whose past medical history includes HIV ( last CD4 count was 163), hypertension, and ESRD on hemodialysis, who presents to the emergency department complaining of shortness of breath prior to arrival. Patient was sent from dialysis on rapid response. Patient on TCU and became short of breath, emergent dialysis was arranged. Patient completed session and now presents to emergency department reports upper abd pain and cp 08/18/17 16:38 Time/Duration: Prior to Arrival Symptom Onset: Gradual Symptom Course: Unchanged Activities at Onset: Light Context: Other (Dialysis) Past Medical History - Provider Review Nursing Documentation Reviewed: Yes - Past History Past History: No Previous - Infectious Disease Hx of Infectious Diseases: None - Tetanus Immunization Tetanus Immunization: Unknown - Cardiac Hx Cardiac Disorders: Yes (CAD) Hx Hypertension: Yes - Pulmonary Hx Asthma: No Hx Bronchitis: No Hx Chronic Obstructive Pulmonary Disease (COPD): No Hx Emphysema: No Hx Pneumonia: Yes Hx Sleep Apnea: No - Neurological Hx Alzheimer's Disease: No Hx Dementia: No Hx Migraine: Yes Hx Parkinson's Disease: No Hx Seizures: No Hx Transient Ischemic Attacks (TIA): No - HEENT Hx HEENT Disorder: No - Renal Hx Dialysis: Yes Type of Dialysis Access: L AV shunt Date of Last Dialysis Treatment: 08/18/17 Hx Renal Failure: Yes (ESRD (on hemodialysis)) - Endocrine/Metabolic Hx Hypothyroidism: Yes - Hematological/Oncological Hx Anemia: Yes Hx Sickle Cell Disease: No - Integumentary Hx Dermatological Disorder: Yes (generalized body itch on and off) - Musculoskeletal/Rheumatological Hx Arthritis: No Hx Falls: No Hx Fractures: Yes (r ft fx) - Gastrointestinal Hx Gall Bladder Disease: Yes Hx Pancreatitis: Yes - Genitourinary/Gynecological Hx Sexually Transmitted Diseases: Yes (HIV/AIDS) - Psychiatric Hx Anxiety: Yes Hx Depression: Yes Hx Substance Use: Yes - Surgical History Hx Appendectomy: Yes Hx Cholecystectomy: Yes Hx Coronary Stent: Yes - Anesthesia Hx Anesthesia: Yes Hx Anesthesia Reactions: No Hx Malignant Hyperthermia: No - Suicidal Assessment Feels Threatened In Home Enviroment: No Family/Social History - Physician Review Nursing Documentation Reviewed: Yes Family/Social History: No Known Family HX Smoking Status: Never Smoked Hx Alcohol Use: No Hx Substance Use: Yes Substance used: oxycodone and marijuana Hx Substance Use Treatment: No Allergies/Home Meds Allergies/Adverse Reactions: Allergies MAVIS Inhibitors Allergy (Verified 08/13/17 22:37) SWELLING Home Medications: Home Meds Medication Instructions Recorded Confirmed Ogxnu-5-[place] Ethyl Esters 1 GM 1 gm PO BID 07/14/17 08/18/17 [Lovaza] Review of Systems - Physician Review All systems were reviewed & negative as marked: Yes - Review of Systems Constitutional: absent: Fevers, Night Sweats Eyes: absent: Vision Changes ENT: absent: Hearing Changes Respiratory: SOB Cardiovascular: absent: Chest Pain Gastrointestinal: absent: Abdominal Pain Genitourinary Female: absent: Dysuria, Frequency Musculoskeletal: absent: Arthralgias Skin: absent: Rash, Pruritis Neurological: absent: Headache Endocrine: absent: Diaphoresis Hemo/Lymphatic: absent: Adenopathy Psychiatric: absent: Depression Physical Exam Vital Signs Reviewed: Yes Vital Signs Temp Pulse Resp BP Pulse Ox 08/18/17 17:17 20 98 08/18/17 17:16 92 H 18 138/71 98 08/18/17 15:29 97.8 F 99 H 20 147/81 96 Temperature: Afebrile Blood Pressure: Normal Pulse: Tachycardic Respiratory Rate: Normal Appearance: Positive for: Well-Appearing, Non-Toxic, Comfortable Pain Distress: None Mental Status: Positive for: Alert and Oriented X 3 - Systems Exam Head: Present: Atraumatic, Normocephalic Pupils: Present: PERRL Extroacular Muscles: Present: EOMI Conjunctiva: Present: Normal Mouth: Present: Moist Mucous Membranes Neck: Present: Normal Range of Motion Respiratory/Chest: Present: Clear to Auscultation, Good Air Exchange. No: Respiratory Distress, Accessory Muscle Use Cardiovascular: Present: Regular Rate and Rhythm, Normal S1, S2. No: Murmurs Abdomen: Present: Tenderness (epigastic). No: Distention, Peritoneal Signs, Rebound, Guarding Back: Present: Normal Inspection Upper Extremity: Present: Normal Inspection. No: Cyanosis, Edema Lower Extremity: Present: Normal Inspection. No: Edema Neurological: Present: GCS=15, CN II-XII Intact, Speech Normal Skin: Present: Warm, Dry, Normal Color. No: Rashes Psychiatric: Present: Alert, Oriented x 3, Normal Insight, Normal Concentration Medical Decision Making ED Course and Treatment: 08/18/17 15:25 Impression: 57 yof sent from dialysis complaining of shortness of breath prior to arrival. Plan: -- Blood Culture -- Labs -- Prednisone, Bactrim, Vancomycin, and Zosyn -- Reassess and disposition Prior Visits: Notes and results from previous visits were reviewed. Patient was last seen in the emergency department on Progress Notes: 08/18/17 15:30 Imaging reviewed, shows possible right lower lobe consolidation. Case discussed with Dr. Newton, who is aware and agrees with plan for patient readmission. 08/19/17 16:07 noted aa gradiant and pao2, low cd4 count will cover for pcp. dr varghese accepts. notified of elevated lipase. slow ivf started. - Lab Interpretations I have reviewed the lab results: Yes - Medication Orders Current Medication Orders: Acetaminophen (Tylenol 325mg Tab) 650 mg PO Q4 PRN PRN Reason: Fever >100.4 F Aspirin (Ecotrin) 81 mg PO DAILY [facility] Last Admin: 08/19/17 10:24 Dose: Not Given Non-Admin Reason: Patient in Dialysis Atorvastatin Calcium (Lipitor) 20 mg PO DIN [facility] Last Admin: 08/18/17 17:22 Dose: 20 mg Atovaquone (Mepron) 750 mg PO BID DOUGLAS PRN Reason: Protocol Last Admin: 08/19/17 10:24 Dose: Not Given Non-Admin Reason: Patient in Dialysis Clonazepam (Klonopin) 0.5 mg PO HS DOUGLAS PRN Reason: Protocol Last Admin: 08/18/17 21:02 Dose: Behavioural Document 08/18/17 21:02 (Rec: 08/18/17 21:02 [id number]) Maintenance Maintenance Dose Yes Nonmedicinal Nonmedicinal Interventions Redirect Therapeutic Communication Activity Behavior Behavior for Medication: Anxiety Clopidogrel Bisulfate (Plavix) 75 mg PO DAILY [facility] Last Admin: 08/19/17 10:25 Dose: Not Given Non-Admin Reason: Patient in Dialysis Clotrimazole (Mycelex Tejal) 10 mg MT 5XD [facility] Last Admin: 08/19/17 10:25 Dose: Not Given Non-Admin Reason: Patient in Dialysis Diphenhydramine HCl (Benadryl) 50 mg IVP Q4H PRN PRN Reason: Allergy symptoms Last Admin: 08/19/17 15:46 Dose: 50 mg IVP Administration Document 08/19/17 15:46 CLARIBEL (Rec: 08/19/17 15:46 [id number] Charges for Administration # of IVP Administrations 1 Folic Acid (Folic Acid) 1 mg PO DAILY [facility] Last Admin: 08/19/17 10:24 Dose: Not Given Non-Admin Reason: Patient in Dialysis Hydroxyzine HCl (Atarax) 25 mg PO BID PRN PRN Reason: Anxiety Meropenem 500 mg/ Sodium (Chloride) 50 mls @ 100 mls/hr IVPB 1400 DOUGLAS PRN Reason: Protocol Stop: 08/25/17 22:01 Levalbuterol HCl (Xopenex) 0.63 mg IH [id number] [facility] Last Admin: 08/19/17 13:34 Dose: Not Given Non-Admin Reason: Patient in Dialysis Levothyroxine Sodium (Synthroid) 25 mcg PO DAILY [facility] Last Admin: 08/19/17 10:26 Dose: Not Given Non-Admin Reason: Patient in Dialysis Metoclopramide HCl (Reglan) 5 mg IVP Q6H [facility] Last Admin: 08/19/17 10:26 Dose: Not Given Non-Admin Reason: Patient in Dialysis Metoprolol Tartrate (Lopressor) 50 mg PO BID [facility] Last Admin: 08/19/17 10:24 Dose: Not Given Non-Admin Reason: Patient in Dialysis Mirtazapine (Remeron) 30 mg PO HS [facility] Last Admin: 08/18/17 21:07 Dose: 30 mg Morphine Sulfate (Morphine) 1 mg IVP Q8H PRN PRN Reason: Pain, severe (8-10) Last Admin: 08/19/17 15:34 Dose: 1 mg MAR Pain Assessment Document 08/19/17 15:34 KKA (Rec: 08/19/17 15:35 [id number] Pain Reassessment Is this a pain reassessment? No Presence of Pain Presence of Pain Yes Pain Scale Used Pain Scale Used Numeric Location Left, Right or Bilateral Left Upper or Lower Upper Pain Location Body Site Back Description Pain Behavior Guarding IVP Administration Document 08/19/17 15:34 CLARIBEL (Rec: 08/19/17 15:35 CLARIBEL [id number]) Charges for Administration # of IVP Administrations 1 Multivitamins (Thera Tab) 1 tab PO DAILY [facility] Last Admin: 08/19/17 10:26 Dose: Not Given Non-Admin Reason: Patient in Dialysis Non-Formulary Medication (Darunavir [Prezista]) 800 mg PO DAILY [facility] Last Admin: 08/19/17 10:24 Dose: Not Given Non-Admin Reason: Patient in Dialysis Non-Formulary Medication (Dolutegravir Sodium [Tivicay]) 50 mg PO DAILY [facility] Last Admin: 08/19/17 10:24 Dose: Not Given Non-Admin Reason: Patient in Dialysis [id number]-[id number] Ethyl Esters (Lovaza) 1 gm PO BID [facility] Last Admin: 08/19/17 10:24 Dose: Not Given Non-Admin Reason: Patient in Dialysis Ondansetron HCl (Zofran Inj) 4 mg IVP Q4H PRN PRN Reason: Nausea/Vomiting Pantoprazole Sodium (Protonix Inj) 40 mg IVP Q12 [facility] Last Admin: 08/19/17 10:25 Dose: Not Given Non-Admin Reason: Patient in Dialysis Ritonavir (Norvir) 100 mg PO DAILY [facility] PRN Reason: Protocol Last Admin: 08/19/17 10:25 Dose: Not Given Non-Admin Reason: Patient in Dialysis Discontinued Medications Hydroxyzine HCl (Atarax) 25 mg PO BID PRN PRN Reason: Itching / Pruritus Vancomycin HCl (Vancomycin 1gm) 1 gm in 250 mls @ 167 mls/hr IVPB STAT STA PRN Reason: Protocol Stop: 08/18/17 17:13 Last Admin: 08/18/17 17:37 Dose: 167 mls/hr eMAR Start Stop Document 08/18/17 17:37 GMD (Rec: 08/18/17 17:37 GMD [id number]) Intravenous Solution Start Date 08/18/17 Start Time 17:37 End Date 08/18/17 End time 19:07 Total Infusion Time 90 Piperacillin Sod/Tazobactam Sod (Zosyn 3.375 In Ns 100ml) 100 mls @ 200 mls/hr IVPB STAT STA PRN Reason: Protocol Stop: 08/18/17 16:13 Last Admin: 08/18/17 16:32 Dose: 200 mls/hr eMAR Start Stop Document 08/18/17 16:32 GMD (Rec: 08/18/17 16:33 GMD [id number]) Intravenous Solution Start Date 08/18/17 Start Time 16:32 End Date 08/18/17 End time 17:02 Total Infusion Time 30 Sodium Chloride (Sodium Chloride 0.9%) 1,000 mls @ 80 mls/hr IV .[id number] [facility] Last Admin: 08/18/17 17:06 Dose: 80 mls/hr eMAR Start Stop Document 08/18/17 17:06 GMD (Rec: 08/18/17 17:06 GMD [id number]) Intravenous Solution Start Date 08/18/17 Start Time 17:06 Sodium Chloride (Sodium Chloride 0.9%) 1,000 mls @ 60 mls/hr IV .[id number] [facility] Last Admin: 08/18/17 21:04 Dose: Meropenem 500 mg/ Sodium (Chloride) 50 mls @ 100 mls/hr IVPB Q12 [facility] PRN Reason: Protocol Stop: 08/25/17 22:01 Last Admin: 08/18/17 21:56 Dose: 100 mls/hr eMAR Start Stop Document 08/18/17 21:56 GC (Rec: 08/18/17 21:57 GC [id number]) Intravenous Solution Start Date 08/18/17 Start Time 21:57 Morphine Sulfate (Morphine) 2 mg IVP STAT STA Stop: 08/18/17 17:27 Last Admin: 08/18/17 17:44 Dose: 2 mg MAR Pain Assessment Document 08/18/17 17:44 GMD (Rec: 08/18/17 17:44 GMD [id number]) Pain Reassessment Is this a pain reassessment? No Presence of Pain Presence of Pain Yes IVP Administration Document 08/18/17 17:44 GMD (Rec: 08/18/17 17:44 GMD [id number]) Charges for Administration # of IVP Administrations 1 Re-Assess: MAR Pain Assessment Document 08/18/17 18:44 GC (Rec: 08/18/17 20:02 GC [id number]) Pain Reassessment Is this a pain reassessment? Yes Sleep Is patient sleeping during reassessment? Yes Morphine Sulfate (Morphine) 2 mg IVP Q4H PRN PRN Reason: Pain, severe (8-10) Morphine Sulfate (Morphine) 2 mg IVP Q4H PRN PRN Reason: Pain, severe (8-10) Last Admin: 08/19/17 06:57 Dose: 2 mg [facility] Pain Assessment Document 08/19/17 06:57 SRE (Rec: 08/19/17 06:58 [facility] [id number]) Pain Reassessment Is this a pain reassessment? No Sleep Is patient sleeping during reassessment? No Presence of Pain Presence of Pain Yes Pain Scale Used Pain Scale Used Numeric Location Pain Location Body Site Abdomen Description Description Constant Intensity of Pain at present 10 IVP Administration Document 08/19/17 06:57 [facility] (Rec: 08/19/17 06:58 SRE [id number]) Charges for Administration # of IVP Administrations 1 Re-Assess: [facility] Pain Assessment Document 08/19/17 08:00 JZA (Rec: 08/19/17 10:25 JZA [id number]) Pain Reassessment Is this a pain reassessment? Yes Sleep Is patient sleeping during reassessment? No Presence of Pain Presence of Pain No Prednisone (Prednisone Tab) 40 mg PO STAT STA Stop: 08/18/17 15:46 Last Admin: 08/18/17 16:32 Dose: 40 mg Tramadol HCl (Ultram) 50 mg PO STAT ST[facility] Stop: 08/18/17 17:14 Last Admin: 08/18/17 17:25 Dose: Not Given Non-Admin Reason: Patient Refused Trimethoprim/Sulfamethoxazole (Bactrim Ss Tab) 1 tab PO ONCE ONE Stop: 08/18/17 16:16 Last Admin: 08/18/17 17:03 Dose: 1 tab - Scribe Statement The provider has reviewed the documentation as recorded by the Yanet Osorio Provider Scribe Attestation: All medical record entries made by the Yanet were at my direction and personally dictated by me. I have reviewed the chart and agree that the record accurately reflects my personal performance of the history, physical exam, medical decision making, and the department course for this patient. I have also personally directed, reviewed, and agree with the discharge instructions and disposition. Disposition/Present on Arrival - Present on Arrival Any Indicators Present on Arrival: No History of DVT/PE: No History of Uncontrolled Diabetes: No Urinary Catheter: No History of Decub. Ulcer: No History Surgical Site Infection Following: None - Disposition Have Diagnosis and Disposition been Completed?: Yes Diagnosis: Pancreatitis, ESRD (end stage renal disease), Pneumonia Disposition: HOSPITALIZED Disposition Time: 02:00 Patient Problems: Current Active Problems Problem Status Onset ESRD (end stage renal disease) Acute Pancreatitis Acute Pneumonia Acute Condition: STABLE
[2017-08-18] MEDS ORDERED: Tmp-Smz 400 mg-80 mg SS Tab PO ONE (16:15)
[2017-08-18] MEDS ORDERED: Sodium Chloride 0.9% 1,000 ML IV SCH ×2 (16:45→20:03)
[2017-08-18] MEDS ORDERED: Albuterol-Ipratrop 3 mg / 0.5 (3 ml) UD IH PRN (17:00)
[2017-08-18] MEDS ORDERED: Morphine 4 mg/ml ISec IVP STA (17:26)
[2017-08-18] MEDS: Atovaquone 750 mg/5 ml Susp UD PO SCH (18:38)
[2017-08-18] MEDS: Omega-3-Acid Ethyl Esters 1 GM Cap PO SCH (18:44)
[2017-08-18] MEDS ORDERED: Morphine 2 mg/ml ISec IVP PRN (19:43)
--- NOTE | 2017-08-18 19:59 | CP.PCM.HP ---
History of Present Illness - History of Present Illness History of Present Illness: (covering for Dr. Rubalcava) This is a 57 year old female with history of HIV, HTN, Coronary artery disease on Plavix, pancreatitis, ESRD on HD, and chronic systolic heart failure who appears to have had flash pulmonary edema. Patient was initially admitted for pancreatitis, which was treated and patient was sent to the [facility] for physical therapy for deconditioning and unsteady gait. Yesterday, patient felt short of breath, which was relieved with oxygen. CXR was negative for infiltrate or effusion. This morning, patient began having chest pain, shortness of breath and vomiting. Rapid response was called. CXR done today shows mild venous congestion and new infiltrate right lower lobe. Dialysis was done emergently to remove fluid. Now, patient is feeling better but continues to complain of chest pain. She denies shortness of breath. In the ER, lipase was found to be over 1600. Present on Admission - Present on Admission Any Indicators Present on Admission: No History of DVT/PE: No History of Uncontrolled Diabetes: No Urinary Catheter: No Decubitus Ulcer Present: No Review of Systems - Constitutional Constitutional: absent: Chills, Fever - Cardiovascular Cardiovascular: As Per HPI - Respiratory Respiratory: As Per HPI - Gastrointestinal Gastrointestinal: As Per HPI Past Patient History - Infectious Disease Hx of Infectious Diseases: None - Tetanus Immunizations Tetanus Immunization: Unknown - Past Medical History & Family History Past Medical History?: Yes - Past Social History Smoking Status: Never Smoked - CARDIAC Hx Cardiac Disorders: Yes (CAD) Hx Hypertension: Yes - PULMONARY Hx Asthma: No Hx Bronchitis: No Hx Chronic Obstructive Pulmonary Disease (COPD): No Hx Emphysema: No Hx Pneumonia: Yes Hx Sleep Apnea: No - NEUROLOGICAL Hx Alzheimer's Disease: No Hx Dementia: No Hx Migraine: Yes Hx Parkinson's Disease: No Hx Seizures: No Hx Transient Ischemic Attacks (TIA): No - HEENT Hx HEENT Problems: No - RENAL Hx Dialysis: Yes Type of Dialysis Access: L AV shunt Date of Last Dialysis Treatment: 08/18/17 Hx Renal Failure: Yes (ESRD (on hemodialysis)) - ENDOCRINE/METABOLIC Hx Hypothyroidism: Yes - HEMATOLOGICAL/ONCOLOGICAL Hx Anemia: Yes Hx Sickle Cell Disease: No - INTEGUMENTARY Hx Dermatological Problems: Yes (generalized body itch on and off) - MUSCULOSKELETAL/RHEUMATOLOGICAL Hx Arthritis: No Hx Falls: No Hx Fractures: Yes (r ft fx) - GASTROINTESTINAL Hx Gall Bladder Disease: Yes Hx Pancreatitis: Yes - GENITOURINARY/GYNECOLOGICAL Hx Sexually Transmitted Disorders: Yes (HIV/AIDS) - PSYCHIATRIC Hx Anxiety: Yes Hx Depression: Yes Hx Substance Use: Yes - SURGICAL HISTORY Hx Appendectomy: Yes Hx Cholecystectomy: Yes Hx Coronary Stent: Yes - ANESTHESIA Hx Anesthesia: Yes Hx Anesthesia Reactions: No Hx Malignant Hyperthermia: No Meds Allergies/Adverse Reactions: Allergies Allergy/AdvReac Type Severity Reaction Status Date / Time MAVIS Inhibitors Allergy SWELLING Verified 08/13/17 22:37 Physical Exam - Head Exam Head Exam: ATRAUMATIC, NORMOCEPHALIC - Respiratory Exam Respiratory Exam: Rhonchi, NORMAL BREATHING PATTERN - Cardiovascular Exam Cardiovascular Exam: +S1, +S2 - GI/Abdominal Exam GI & Abdominal Exam: Normal Bowel Sounds, Soft, Tenderness Additional comments: mild epigastric tenderness - Neurological Exam Neurological exam: Alert, Oriented x3 Results - Vital Signs Recent Vital Signs: Last Vital Signs Temp 97.8 F 08/18/17 15:29 Pulse 105 H 08/18/17 18:44 Resp 20 08/18/17 17:17 BP 159/97 H 08/18/17 18:44 Pulse Ox 98 08/18/17 17:17 - Labs Labs: Laboratory Results - last 24 hr 08/18/17 16:10 Lipase 1693 H Assessment & Plan - Assessment and Plan (Free Text) Assessment: Flash pulmonary edema Pancreatitis Pneumonia? CAD HTN HIV ESRD on HD Plan: Patient is seen this evening. She is complaining of chest pain. Will order Morphine 2mg every 4 hours as needed for pain. Patient will have cardiac evaluation by Dr. Tran. She has been started on gentle IV hydration for pancreatitis. She will remain NPO except medications. We will start Zofran as needed for nausea. CXR shows possible infiltrate. She was given dose of Vancomycin and Zosyn. Infectious disease and pulmonary will be consulted for pneumonia. Pulmonology saw the patient in previous admission. Patient has chronic changes in her lung. We will also consult Dr. Shukla and Dr Crump who are her nephrologists and will order dialysis for her. Will repeat CXR tomorrow morning.
--- NOTE | 2017-08-18 20:01 | CARD ---
APPROVED REPORT EKG Measurement Heart [id number] CT 150P29 [id number] <Conclusion> Normal sinus rhythm Possible Left atrial enlargement Nonspecific ST and T wave abnormality Prolonged QT Abnormal ECG
[2017-08-18] MEDS: DiphenhydrAMINE 50 mg/ml Inj IVP PRN ×2 (20:02→23:48)
[2017-08-18] MEDS: Morphine 4 mg/ml ISec IVP PRN ×2 (20:03→23:38)
[2017-08-18] MEDS ORDERED: Meropenem 500 MG in Sodium Chloride 0.9% 50 ML IVPB SCH (22:00)
[2017-08-19] MEDS: Morphine 4 mg/ml ISec IVP PRN ×4 (03:38→23:22)
[2017-08-19] MEDS: DiphenhydrAMINE 50 mg/ml Inj IVP PRN ×4 (03:38→15:46)
--- NOTE | 2017-08-19 10:19 | PN ---
DATE: 08/19/2017 PULMONARY NOTE SUBJECTIVE: The patient appears comfortable this morning. She is not short of breath at rest. PHYSICAL EXAMINATION VITAL SIGNS: Temperature is 98.4, pulse on the monitor is 81, respiratory rate 18, blood pressure 141/90. Oxygen saturation on nasal cannula is 100%. HEENT: Normocephalic, atraumatic. No JVD. CARDIOVASCULAR: Systolic ejection murmur at the lower left sternal border. No S3 gallop. LUNGS: Crackles at both bases. No rhonchi. No wheezing. EXTREMITIES: Mild edema. No cyanosis, no clubbing. Calves are nontender to palpation. GI: Abdomen is soft. It is still mildly distended and mildly tender to palpation. Bowel sounds are positive. SKIN: No acute rash. NEUROLOGIC: Limited at the present time. PERTINENT LABORATORY DATA: Chest x-ray was done yesterday and reviewed. It is a poor semi-erect portable film. Bilateral pulmonary infiltrates are noted - most consistent with pulmonary edema. IMPRESSION: 1. Acute pancreatitis. 2. End-stage renal disease. 3. Chronic congestive heart failure. 4. Coronary artery disease. 5. Chronic interstitial changes. 6. Anemia. PLAN: The patient appears comfortable this morning. She is not short of breath at rest. She states she is feeling much, much better - compared to yesterday. I did discuss the case with the night nurse at length. Apparently, yesterday, the patient became short of breath. She then went to emergent dialysis. Input by Dr. Shukla is noted. As per the nurse and as per the patient, after the dialysis, the patient's symptoms were significantly improved. I did review the chest x-ray as above. The chest x-ray is most consistent with pulmonary edema, but I cannot rule out definitively an underlying infiltrate. CAT scan of the chest has been ordered for closer evaluation. There have been no temperatures noted. Repeat a.m. labs are pending. Antibiotics have been started by Infectious Disease. Procalcitonin is ordered. Again, the clinical status of the patient is significantly improved - compared to yesterday. This rapid improvement is most consistent with the benefits of dialysis with pulmonary edema. Again, I cannot definitively rule out an underlying pneumonia. However, acute pneumonia appears less likely. Again, I will review the CAT scan of the chest when feasible. I will discuss the above with the attending physician. David Avila MD MTDHarsh
[2017-08-19] MEDS: Omega-3-Acid Ethyl Esters 1 GM Cap PO SCH ×2 (10:24→17:16)
[2017-08-19] MEDS: DARUNAVIR 800 MG PO SCH (10:24)
[2017-08-19] MEDS: Atovaquone 750 mg/5 ml Susp UD PO SCH ×2 (10:24→17:18)
[2017-08-19] MEDS: Multivitamin Therapeutic Tab PO SCH ×2 (10:26→17:17)
[2017-08-19] MEDS: Levalbuterol 0.63 MG/3 ML Inhal Soln UD IH SCH ×3 (10:26→20:38)
[2017-08-19] MEDS: Levothyroxine 25 MCG TAB PO SCH (10:26)
[2017-08-19 10:42] LABS: BASO # 0.02 K/mm3 (0.0-2.0); BASO % 0.2 % (0.0-3.0); EOS # 0.1 (0.0-0.7); EOS % 1.7 % (1.5-5.0); GRAN # 6.02 (1.4-6.5); GRAN % 72.4 % (50.0-68.0); HEMOGLOBIN 8.3 g/dL (12.0-16.0); LYMPH # 1.3 (1.2-3.4); LYMPH % 15.5 % (22.0-35.0); MEAN CELL VOLUME 98.9 fl (80.0-105.0); MEAN CORPUSCULAR HEMOGLOBIN 31.2 pg (25.0-35.0); MEAN CORPUSCULAR HGB CONC 31.6 g/dl (31.0-37.0); MEAN PLATELET VOLUME 11.8 fl (7.0-11.0); MONO # 0.9 (0.1-0.6); MONO % 10.2 % (1.0-6.0); RBC 2.66 10^6/uL (3.5-6.1); RED CELL DISTRIBUTION WIDTH 16.9 % (11.5-14.5); WHITE BLOOD COUNT 8.3 10^3/ul (4.5-11.0)
[2017-08-19 10:59] LABS: ALB/GLOB RATIO 0.9 (1.1-1.8); ALBUMIN 3.6 g/dL (3.0-4.8); ALT/SGPT 71 U/L (7-56); AMYLASE 271 U/L (35-125); AST/SGOT 72 U/L (14-36); BILIRUBIN,DIRECT 0.5 mg/dL (0.0-0.4); BLOOD UREA NITROGEN 60 mg/dL (7-21); GFR AFRICAN-AMERICAN 5; GFR NON-AFRICAN AMERICAN 4; HDL CHOLESTEROL 22 mg/dL (29-60); LIPASE 562 U/L (23-300)
[2017-08-19 11:03] LABS: LDL CHOLESTEROL 44 mg/dL (0-129)
[2017-08-19 11:13] LABS: FREE T4 1.01 ng/dL (0.78-2.19); T4 5.1 ug/dL (5.5-11.0)
--- NOTE | 2017-08-19 11:24 | CT ---
PROCEDURE: CT Chest without contrast HISTORY: PNEUMONIA/VS CHF COMPARISON: Comparison made with CT scan chest 08/09/2017. TECHNIQUE: Contiguous axial images were obtained through the chest without intravenous contrast enhancement. Sagittal and coronal reconstructions were performed. Radiation dose (DLP): 191.12 mGy-cm. This CT exam was performed using one or more of the following dose reduction techniques: Automated exposure control, adjustment of the mA and/or kV according to patient size, and/or use of iterative reconstruction technique. FINDINGS: LUNGS: There is a small right-sided effusion and mild right basilar atelectasis slightly increased from prior exam. Tiny left effusion and minor left basilar atelectasis minimally increased from prior exam. Vague ground-glass opacity seen in the upper lobes bilaterally. MEDIASTINUM: Heart is enlarged. . There is a moderate-sized pericardial effusion. Ascending thoracic aorta measures approximately 3.1 cm and descending thoracic aorta measures approximately 2.5 cm. Pulmonary trunk measures 3.25 cm. There are us several on small to medium-sized mediastinal lymph nodes. Evaluation for hilar lymph nodes limited due to the lack of circulating intravenous contrast material. Central airways are midline and patent. No large central endoluminal lesions are identified. There is a tiny hiatal hernia. PLEURA: As above. No evidence of pneumothorax BONES: Minor multilevel degenerative spondylosis of the thoracic spine. There are no acute compression fractures no retropulsed fragments. UPPER ABDOMEN: Cholecystectomy changes again noted. . There is a small amount of perihepatic and perisplenic ascites. Clinical correlation recommended. . The visualized portions of the upper kidneys are atrophic. OTHER FINDINGS: None. IMPRESSION: Small bilateral effusions and bibasilar atelectasis right slightly larger than left, both of which have increased in size slightly since prior exam. Marked cardiomegaly. Small amount of perihepatic and perisplenic ascites. Atrophic kidneys. Changes of cholecystectomy.
--- NOTE | 2017-08-19 13:41 | PN ---
DATE: 08/19/2017 SUBJECTIVE: The patient is seen in room 373, bed 3. The patient is lying in the bed comfortable. Does not appear to be in any distress. Overnight nurse's notes were reviewed. The patient does not appear to be in any pain. The patient had episodes of chest pain and abdominal pain. The patient was examined. The patient has palpable chest wall tenderness which is reproducible. The patient has abdominal wall guarding and the patient still resists to be examined completely and fully on the abdominal examination and tries to hold hand while examination. The patient was seen lying in the bed. REVIEW OF SYSTEMS: Thirteen system review was done, pertinent positive and negative dictated above. PHYSICAL EXAMINATION VITAL SIGNS: T-max 98.4. Telemetry shows sinus rhythm, heart rate in 80s and 90s. Blood pressure 143/85, respiration is 18-20, O2 sat is 100%. HEAD: Normocephalic, atraumatic. EENT: Shows pinkish pale conjunctivae. Anicteric sclerae. No oropharyngeal lesion. No neck rigidity. CHEST: Symmetrical. Positive rhonchi in upper lung melchor and questionable decreased breath sound at the bases. CARDIOVASCULAR: S1, S2, regular rhythm. Positive systolic murmur in left sternal border, right second intercostal space, left second intercostal space. ABDOMEN: Soft. Positive mild epigastric tenderness. No rebound tenderness. Positive chest wall tenderness anteriorly, posteriorly, laterally. GENITALIA: Female. RECTAL: Deferred. EXTREMITY: Shows positive left upper extremity AV fistula, positive thrill. Lower extremity examination is negative. MUSCULOSKELETAL: Shows body mass index of 22.5. LABORATORY DATA: Diagnostics from 08/18 were noted. IMPRESSION: 1. Shortness of breath, etiology undetermined. 2. Status post rapid response secondary to shortness of breath. 3. History of narcotic dependent pain syndrome and narcotic seeking behavior. 4. Tachycardia. 5. Leukopenia. 6. Human immunodeficiency virus infection, acquired immune deficiency syndrome. 7. History of severe noncompliance and poor compliance. 8. Anemia, thrombocytopenia and pancytopenia. 9. Hypoxemia. 10. End-stage renal disease, hemodialysis dependent via the left upper extremity arteriovenous fistula. 11. Questionable systolic congestive heart failure with elevated BNP. 12. Transaminitis. 13. Elevated lipase, etiology undetermined. 14. History of hypothyroidism. 15. Worsening pulmonary venous congestion and right lower lobe consolidation. 16. Cardiomegaly. 17. Possible pneumonia. 18. Right lower lobe consolidation, questionable healthcare-associated pneumonia and consolidation. 19. Narcotic seeking pain syndrome. 20. Normocytic anemia and thrombocytopenia. 21. Nonspecific ST-T wave abnormalities. 22. Questionable gastroparesis. 23. Insomnia. 24. Questionable depression. 25. History of opioid addiction. 26. Possible mood disorder secondary to above. 27. Major depressive disorder. PLAN: At this time, the patient has been ordered repeat labs which are pending. Consultation: 1. Cardiology. 2. Gastroenterology. 3. Infectious Disease. 4. Nephrology. 5. Pulmonary. The patient is also requested to have a living will advance directive, for which the patient has been referred to Meagan Hou. Procalcitonin level has been ordered. Current medications: Atarax 25 mg b.i.d. p.r.n., Benadryl 50 IV every 4 hours p.r.n., Prezista 800 mg daily, Tivicay 50 mg daily, Ecotrin 81 mg daily, folic acid 1 mg daily, Klonopin 0.5 at bedtime, Lipitor 20 mg daily, Lopressor 50 mg twice a day, Lovaza 1 g twice a day, Mepron 750 twice a day. The patient is started on meropenem 500 IV daily. The patient's morphine has been adjusted to 1 mg IV every 8 hours p.r.n. because the patient does not have subjective evidence of pain only; when the patient is examined, the patient tries to hold the hand and does not let the physician to examine correctly. With history of the patient's narcotic seeking behavior, the patient's morphine will be titrated down. The patient is on Mycelex 10 mg 5 times a day, Norvir 100 mg daily, Plavix 75 mg daily, Protonix 40 IV every 12 hours, Reglan 5 IV every 6 hours, Remeron 30 mg daily. The patient's IV fluid has been discontinued. Synthroid 25 mcg daily, Tylenol p.r.n. The patient received vancomycin 1 g IV dose. The patient is on Xopenex nebulizer every 6 hours, Zofran 4 IV every 4 hours. The patient has been ordered a CT of the chest for evaluation of pneumonia. The patient has been started on liquid diet. The patient at present has been ordered out of bed. The patient has been ordered physical therapy and occupational therapy. The patient's condition, management and treatment plan discussed with the patient and the patient's daughter at bedside. All questions concerned answered. Dictated and electronically signed, not read. Ranjith Rubalcava MD
--- NOTE | 2017-08-19 14:05 | CP.PCM.PN ---
<ShunPhan - Last Filed: 08/19/17 13:42> Subjective - Date & Time of Evaluation Date of Evaluation: 08/19/17 Time of Evaluation: 08:30 - Subjective Subjective: Medicine progress note: Dr. Rubalcava Patient seen and examined at bedside. Patient states that her shortness of breath is much better. Patient denies any fevers or chills. Patient still complaining of mild pain, but is otherwise doing well. Objective - Vital Signs/Intake and Output Vital Signs (last 24 hours): Temp Pulse Resp BP Pulse Ox 98.4 F 94 H 18 143/85 100 08/19/17 06:00 08/19/17 09:00 08/19/17 09:00 08/19/17 09:00 08/19/17 09:00 Intake and Output: 08/19/17 08/19/17 06:59 18:59 Intake Total 0 Output Total 0 Balance 0 - Medications Medications: Current Medications Acetaminophen (Tylenol 325mg Tab) 650 mg PO Q4 PRN PRN Reason: Fever >100.4 F Aspirin (Ecotrin) 81 mg PO DAILY [facility] Last Admin: 08/19/17 10:24 Dose: Not Given Atorvastatin Calcium (Lipitor) 20 mg PO DIN [facility] Last Admin: 08/18/17 17:22 Dose: 20 mg Atovaquone (Mepron) 750 mg PO BID [facility] PRN Reason: Protocol Last Admin: 08/19/17 10:24 Dose: Not Given Clonazepam (Klonopin) 0.5 mg PO HS [facility] PRN Reason: Protocol Last Admin: 08/18/17 21:02 Dose: Not Given Clopidogrel Bisulfate (Plavix) 75 mg PO DAILY [facility] Last Admin: 08/19/17 10:25 Dose: Not Given Clotrimazole (Mycelex Tejal) 10 mg MT 5XD [facility] Last Admin: 08/19/17 10:25 Dose: Not Given Diphenhydramine HCl (Benadryl) 50 mg IVP Q4H PRN PRN Reason: Allergy symptoms Last Admin: 08/19/17 10:48 Dose: 50 mg Folic Acid (Folic Acid) 1 mg PO DAILY [facility] Last Admin: 08/19/17 10:24 Dose: Not Given Hydroxyzine HCl (Atarax) 25 mg PO BID PRN PRN Reason: Anxiety Meropenem 500 mg/ Sodium (Chloride) 50 mls @ 100 mls/hr IVPB 1400 DOUGLAS PRN Reason: Protocol Stop: 08/25/17 22:01 Levalbuterol HCl (Xopenex) 0.63 mg IH [id number] [facility] Last Admin: 08/19/17 13:34 Dose: Not Given Levothyroxine Sodium (Synthroid) 25 mcg PO DAILY [facility] Last Admin: 08/19/17 10:26 Dose: Not Given Metoclopramide HCl (Reglan) 5 mg IVP Q6H [facility] Last Admin: 08/19/17 10:26 Dose: Not Given Metoprolol Tartrate (Lopressor) 50 mg PO BID [facility] Last Admin: 08/19/17 10:24 Dose: Not Given Mirtazapine (Remeron) 30 mg PO HS [facility] Last Admin: 08/18/17 21:07 Dose: 30 mg Morphine Sulfate (Morphine) 1 mg IVP Q8H PRN PRN Reason: Pain, severe (8-10) Multivitamins (Thera Tab) 1 tab PO DAILY [facility] Last Admin: 08/19/17 10:26 Dose: Not Given Non-Formulary Medication (Darunavir [Prezista]) 800 mg PO DAILY [facility] Last Admin: 08/19/17 10:24 Dose: Not Given Non-Formulary Medication (Dolutegravir Sodium [Tivicay]) 50 mg PO DAILY [facility] Last Admin: 08/19/17 10:24 Dose: Not Given [id number] Ethyl Esters (Lovaza) 1 gm PO BID [facility] Last Admin: 08/19/17 10:24 Dose: Not Given Ondansetron HCl (Zofran Inj) 4 mg IVP Q4H PRN PRN Reason: Nausea/Vomiting Pantoprazole Sodium (Protonix Inj) 40 mg IVP Q12 [facility] Last Admin: 08/19/17 10:25 Dose: Not Given Ritonavir (Norvir) 100 mg PO DAILY [facility] PRN Reason: Protocol Last Admin: 08/19/17 10:25 Dose: Not Given - Labs Labs: 08/19/17 10:20 08/19/17 10:20 - Constitutional Appears: Well - Head Exam Head Exam: ATRAUMATIC, NORMAL INSPECTION, NORMOCEPHALIC - Eye Exam Eye Exam: EOMI, Normal appearance, PERRL Pupil Exam: NORMAL ACCOMODATION, PERRL - ENT Exam ENT Exam: Mucous Membranes Moist, Normal Exam - Neck Exam Neck Exam: Full ROM, Normal Inspection. absent: Lymphadenopathy - Respiratory Exam Respiratory Exam: Clear to Ausculation Bilateral, NORMAL BREATHING PATTERN - Cardiovascular Exam Cardiovascular Exam: REGULAR RHYTHM, +S1, +S2. absent: Murmur - GI/Abdominal Exam GI & Abdominal Exam: Soft, Normal Bowel Sounds. absent: Tenderness - Extremities Exam Extremities Exam: Full ROM, Normal Capillary Refill, Normal Inspection. absent : Joint Swelling, Pedal Edema - Back Exam Back Exam: NORMAL INSPECTION - Neurological Exam Neurological Exam: Alert, Awake, CN II-XII Intact, Normal Gait, Oriented x3 - Psychiatric Exam Psychiatric exam: Normal Affect, Normal Mood - Skin Skin Exam: Dry, Intact, Normal Color, Warm Assessment and Plan - Assessment and Plan (Free Text) Assessment: 57 year old female with history of HIV, HTN, Coronary artery disease on Plavix, pancreatitis, ESRD on HD, and chronic systolic heart failure who appears to have had flash pulmonary edema. Chest XR showed new infiltrate in right lower lobe. Emergent dialysis performed to remove fluid. Dr. Simon who is on consult cannot rule out pneumonia. Patient denies subjective fevers and chills, and only has one SIRS criteria - tachycardia. Patient was recovering in TCU from bout of pancreatitis, and lipase still shown to be elevated when she was transferred to ED. Shortness of breath most likely 2/2 flash pulmonary edema VS pneumonia - Dr. Simon: Pulmonology - S/p emergent dialysis - Merrem - Xopenex Pancreatitis - NPO, Merrem, Light hydration - Tapering morphine - Dr. Snider on consult CAD - ASA, Lipitor, Lopressor - Dr. Tran on consult HTN - Lopressor HLD - Lipitor HIV - Continue Ritonavir, Dulutegravir, Darunavir - Dr. Calvert on consult ESRD on HD - Dialysis - Dr. Shukla on consult Hypothyroidism - Continue synthroid History of Major Depressive - Continue with Klonopin, Remeron <Ranjith Rubalcava U - Last Filed: 08/25/17 17:06> Objective - Vital Signs/Intake and Output Vital Signs (last 24 hours): Temp Pulse Resp BP Pulse Ox 98 F 82 18 148/94 H 100 08/22/17 06:00 08/22/17 06:00 08/22/17 06:00 08/22/17 06:00 08/22/17 06:00 - Labs Labs: 08/22/17 06:45 08/21/17 10:20 Attending/Attestation - Attestation I have personally seen and examined this patient.: Yes I have fully participated in the care of the patient.: Yes I have reviewed all pertinent clinical information, including history, physical exam and plan: Yes Notes (Text): Please see/read my dictated notes.
--- NOTE | 2017-08-19 14:39 | PN ---
DATE: SUBJECTIVE: The patient was transferred back to [facility] with flash pulmonary edema. The patient was experiencing shortness of breath with dyspnea at rest. She is also complaining of some substernal chest pain. The patient had associated nausea and vomiting with her shortness of breath. Her amylase and lipase was found to be elevated. VITAL SIGNS: Reveal temperature of 98.4, blood pressure 137/85, heart rate of 82. HEENT: Reveals sclerae to be white. Conjunctivae pale. NECK: Supple. CHEST: Reveal lungs to be have scattered rhonchi at the bases. HEART: Exam reveals a regular rate and rhythm. Abdomen is soft, nontender. No mass. Extremities: Show no edema. LABORATORY DATA: Reveal hemoglobin 8.3, white blood cell count 8.3, platelet count 83,000. Chemistries reveal BUN 60, creatinine 10.4, AST 72, ALT 71, amylase of 271, lipase of 562. IMPRESSION: 1. Flash pulmonary edema. 2. Chronic abdominal pain. 3. End-stage renal disease. 4. Chest pain. 5. Elevated amylase and lipase. 6. HIV positivity. 7. Coronary artery disease. 8. Chronic anemia and thrombocytopenia. RECOMMENDATIONS: 1. The patient has cardiology reevaluation. 2. I will start the patient on clear liquid diet. I do not believe that the elevated amylase and lipase are secondary to pancreatitis. I believe her abdominal pain is secondary from her flash pulmonary edema. Paul Snider MD
--- NOTE | 2017-08-19 16:55 | CON ---
DATE: 08/19/2017 CARDIOLOGY CONSULTATION HISTORY: The patient is a 57-year-old woman, who presents with shortness of breath and diffuse abdominal and epigastric pain. The patient's past medical history includes cardiomyopathy, hypertension, hypercholesterolemia and suffers from end-stage renal disease. The patient has previous HIV in the past. The patient's breathing improves markedly after dialysis. There are no anginal complaints. REVIEW OF SYSTEMS: Fourteen-point review of systems, the patient complains of body aches without edema of the lower extremity. Her dyspnea is markedly improved. PHYSICAL EXAMINATION: GENERAL: The patient is in no acute distress, but is asking for pain medication. VITAL SIGNS: Blood pressure is 143/85, heart rates in the 80s. NECK: Negative JVD. LUNGS: Without rales. HEART: Reveals S1, S2. EXTREMITIES: Without edema. EKG shows no changes. LABORATORY DATA: Troponins is negative. BUN and creatinine are 60 and creatinine 10.4. Hemoglobin is 8.3. IMPRESSION: 1. Diffuse body aches. 2. Abdominal pain. 3. No evidence for acute coronary syndrome. 4. Coronary artery disease. 5. History of cardiomyopathy. 6. End-stage renal disease. 7. Anemia. 8. Remote history of pancreatitis. PLAN: Given these findings, there is no evidence for acute coronary syndrome. Awaiting GI workup. Derrick Tran MD
[2017-08-19 16:58] LABS: FOLATE > 20.0 ng/mL
[2017-08-19] MEDS: Meropenem 500 MG in Sodium Chloride 0.9% 50 ML IVPB SCH (17:12)
[2017-08-19] MEDS ORDERED: Bacitracin 500 Units/gm Oint Foilpak UD TOP SCH (19:15)
[2017-08-19] MEDS ORDERED: Bacitracin Ointment 30 GM TUBE TOP SCH (20:00)
--- NOTE | 2017-08-20 01:57 | CON ---
DATE: 08/19/2017 LOCATION: The patient is seen earlier this morning in room 373, bed 3. CHIEF COMPLAINT: Weakness times several days. HISTORY OF PRESENT ILLNESS: This is a 57-year-old female with past medical history significant for HIV and AIDS, last CD-4 count of 163. The patient also with chronic renal failure, on hemodialysis, coronary artery disease, urinary tract infection, esophageal ulcers, erosive gastritis, hypertension, history of cholecystectomy, recent hospitalization, the patient also was in transitional care, was transferred to the emergency room with shortness of breath. The patient denies any chest pain. She did have some abdominal pain. No dysuria or frequency. No headaches. No blurred vision. No neck pain. No sore throat. PAST MEDICAL HISTORY: Significant for HIV and AIDS and with low T cells; chronic renal failure, on hemodialysis; hypertension; coronary artery disease; urinary tract infection; esophageal ulcer; erosive gastritis. PAST SURGICAL HISTORY: Significant for cholecystectomy and a left AV shunt. ALLERGIES: THE PATIENT IS ALLERGIC TO MAVIS INHIBITORS. MEDICATIONS AT HOME: Include Atarax and the patient is on Norvir, darunavir and dolutegravir. PHYSICAL EXAMINATION: GENERAL: The patient is in bed. VITAL SIGNS: Temperature of 98, blood pressure is 151/90, respiratory rate of 20 and heart rate of 94 up to 105. HEENT: Unremarkable. NECK: Supple. LUNGS: Have decreased breath sounds. HEART: Normal S1 and S2. ABDOMEN: Soft, nontender. No organomegaly. No rebound. No guarding. No masses. LABORATORY DATA: Laboratory examination reveals a white count of 8.3, hemoglobin of 8, platelets of 83 and 72% granulocytosis. BUN of 60, creatinine of 10.4 and lipase of 6093. The patient had a CAT scan of the chest that reveals bilateral effusion, bibasilar atelectasis and marked cardiomegaly. Dr. Derrick Tran's consultation is reviewed and Dr. Snider's progress note is reviewed and progress note is reviewed. Dr. Avila's note is reviewed. ASSESSMENT AND PLAN: A 57-year-old female with human immunodeficiency virus and acquired immune deficiency syndrome, which is endstage with chronic renal failure, on hemodialysis; coronary artery disease; urinary tract infection; hypertension; esophageal ulcers; erosive gastritis with pulmonary edema with acquired immune deficiency syndrome, pancreatitis, on dolutegravir, darunavir and Norvir. A lengthy discussion is occurred with the patient's daughters regarding noncompliant to medication and medication. Thus far, the patient's blood cultures have been reported negative. We will continue the meropenem at this time and we will follow closely with you. The patient meets criteria for pancreatitis and double the level of lipase with the presentation of epigastric pain. We will follow the culture results clinically and make further recommendations. Overall prognosis, this patient's long-term prognosis is poor. Meliton Rodriguez MD
[2017-08-20] MEDS: Levalbuterol 0.63 MG/3 ML Inhal Soln UD IH SCH ×4 (03:16→19:34)
--- NOTE | 2017-08-20 03:24 | CON ---
DATE: HISTORY OF PRESENT ILLNESS: Patient is a 57-year-old female with multiple medical issues including HIV, hypertension, end-stage renal disease on hemodialysis. Patient was recently discharged from Transitional Care Unit and was transferred to subacute rehab. Patient reported that she had difficulty to breathe and that is why she was brought in back to the hospital. This health technical writer is very familiar with this patient from the previous admission on the medical site and subsequently Transitional Care Unit. Medications were adjusted. Paxil was discontinued. Remeron was started at 30 mg at the nighttime, which helped her with the mood as well as appetite and sleep. Patient was seen and examined today. Patient presented to be alert, pleasant, cooperative. Patient reported that she is feeling a little bit better today. Her impression is that she was overloaded with the liquids and patient said that that is why she had shortness of breath. Right now, she feels better. Patient reported that she likes the medication what she is taking right now, Remeron 30 mg at the nighttime. Patient reported that she does not feel depressed. She is upset that she is in the hospital, but denied thoughts of harming herself or others. Patient reported that she tolerates medications well. PHYSICAL EXAMINATION: VITAL SIGNS: Stable. Temperature is 98.5, pulse is 86, blood pressure 151/96, respiration 20, oxygen saturation is 100. MEDICATIONS: Reviewed. Patient is on aspirin, Lipitor, Mepron, Klonopin 0.5 mg at the nighttime, Plavix, clotrimazole, Benadryl, folic acid, hydroxyzine, also Synthroid, meropenem, Lopressor, Reglan, mirtazapine 30 mg at the nighttime, morphine, multivitamins, also Lovaza, Protonix, ritonavir. MENTAL STATUS EXAMINATION: Patient presented to be well. Affect was reactive, mood congruent. Good eye contact. Speech was normal rate, tone, quality, and quantity. Mood described as feels better. Thought process: constricted and goal directed. Thought content: Patient denied visual, auditory, or tactile hallucinations. Denied paranoid ideation. Patient does not present to be psychotic or depressed. Patient adamantly denied thoughts of harming herself or others. Insight and judgment seems to be improving. Impulses are well controlled. IMPRESSION: Rule out mood disorder due to general medical condition. Patient has end-stage renal disease. Also, patient has human immunodeficiency virus, multiple medical issues as well as hemodialysis. PLAN: Continue current management. Continue current medications. Klonopin as well as Remeron should be continued. Patient was educated about risks, benefits, and alternatives of the medication. Patient does want to continue on them. Denied being depressed. Denied thoughts of harming herself. Patient is not psychotic. This health technical writer will sign off. Should you have any questions, give me a call back or re-consult as needed. Thank you very much for letting me participate in the care of your patient. Macy Almaraz MD MTDD
--- NOTE | 2017-08-20 06:11 | CON ---
DATE: 08/19/[address] Rubalcava and Dr. Allen. REFERRING MD: Dr. Allen. REASON FOR CONSULTATION: To provide dialysis services for a patient transferred from the TCU back to acute care for acute pancreatitis, pneumonia, shortness of breath and CHF. HISTORY OF PRESENT ILLNESS: Patient is a 57-year-old black female well known to me from chronic outpatient dialysis. Patient was seen by me in the TCU 48 hours ago for providing dialysis services. Patient apparently became acutely short of breath yesterday. She required readmission back to the hospital. She was found to be in CHF. She is found to have a right lower lobe pneumonia, and once again, she has pancreatitis with a lipase level of 1693 and an amylase level of 271. Patient received acute dialysis yesterday. She received her routine dialysis today. Patient had been reluctant to take weight off. She now understands that she needs to be ultrafiltrated adequately with her dialysis treatments. She states that she is losing body mass because she is eating less, perhaps secondary to chronic abdominal pain and presently pancreatitis. PAST MEDICAL HISTORY: Significant for that of end-stage renal disease. History of chronic kidney disease secondary to acquired immune deficiency. History of chronic abdominal pain. History of recurrent bouts of pancreatitis. History of acquired immune deficiency syndrome, on HAART therapy. History of anemia secondary to chronic kidney disease, history of secondary hyperparathyroidism. History of ASHD, status post PTCA stents. History of hypertension. History of left upper extremity AV fistula. MEDICATIONS IN HOSPITAL: Include that of Atarax, Benadryl, Prezista, Tivicay, Ecotrin, folic acid, Klonopin, Lipitor, Lopressor, Lovaza, meropenem, morphine, Mycelex, Norvir, Plavix, Protonix, Reglan, Remeron, Synthroid, Thera-Tabs, Tylenol p.r.n., Xopenex p.r.n. and Zofran p.r.n. ALLERGIES: PATIENT IS ALLERGIC TO MAVIS INHIBITORS. SOCIAL HISTORY: Past history of cigarette smoking. No history of alcohol use. Patient is retired. FAMILY HISTORY: Positive for heart disease and diabetes. REVIEW OF SYSTEMS: 10+ systems reviewed with patient. All negative except for what is noted above. PHYSICAL EXAMINATION: GENERAL: Patient is currently seen on telemetry. She states abdominal pain has improved and shortness of breath has resolved. VITAL SIGNS: Blood pressure 129/68, temperature 98.7, pulse of 92, respiratory rate of 18. HEENT: Exam shown her to be normocephalic, atraumatic. Conjunctivae are pale. Sclerae are nonicteric. Pupils equal, reactive to light and accommodation. Extraocular muscles are intact. NECK: Supple. No neck vein distention or thyromegaly. No lymphadenopathy. No bruits. CHEST: Decreased breath sounds at the right base with coarse breath sounds and scattered rales, right greater than left. No wheezing. CARDIOVASCULAR: Shows a regular rate and rhythm without audible murmurs, rubs or gallops. ABDOMEN: Soft. Mild tenderness on palpation of the mid epigastric area. No rebound, no guarding. Bowel sounds are normal. EXTREMITIES: Show left upper extremity AV fistula. Positive thrill. Positive bruit. No lower extremity cyanosis, clubbing or edema. NEUROLOGIC: Shows her to be alert, oriented x3 with no gross focal motor or sensory deficits. LABORATORY DATA AND IMAGING: Chest CT scan done on 08/18/2017 showed bilateral pleural effusions with right greater than left infiltrate. Labs, CBC, white blood cell count 10.8 yesterday, 8.3 today. Hemoglobin down to 8.3. Platelet count is 83,000. Chemistries today showed normal electrolytes. BUN 60 with a creatinine of 10.4. This was predialysis from this morning. Glucose is 123. Calcium 9, phosphorus of 4.9 and magnesium level of 1.9. Iron saturations were 37%. Mild elevation of her liver enzymes, which is chronic in nature. Lipase was 1693 yesterday, today down to 562. Amylase was 250. Procalcitonin level was elevated at 18.67. Vitamin D level is low at 16.3. Microbiology, blood cultures are negative at 24 hours. ASSESSMENT: 1. Readmission back to the hospital for congestive heart failure, pneumonia and acute pancreatitis. All these issues seem to be improved clinically. Patient has chronic abdominal pain, for which she has required narcotic analgesics in the past. Presently, she has another bout of acute/recurrent pancreatitis. Patient remains on a liquid diet. She appears to be tolerating the diet well. No nausea or vomiting. No diarrhea. 2. History of end-stage renal disease. Patient will continue routine dialysis. I discussed with her the need to not limit the nurses' ability to ultrafiltrate her. It is clear that she is losing body mass secondary to decreased oral intake. However, she will need to at least have 1.5 liters of fluid removed with each dialysis. Over the last several days, she has limited her ultrafiltration to 500 mL of fluid. 3. History of HIV/AIDS. Patient will continue HAART therapy. Etiology of her chronic kidney disease was acquired immune deficiency syndrome. 4. Past history of pancytopenia. This appears to have resolved to some extent. 5. History of esophageal ulcer and erosive gastritis, being followed by Gastroenterology. Patient continues on protein pump inhibition therapy. 6. New pneumonia, right lower lobe. Patient will complete a course of antibiotic therapy. She will be seen by Pulmonary and Infectious Disease. 7. History of anemia, in part secondary to recent infections and secondary to chronic kidney disease. We will maximize Aranesp dose in dialysis and continue iron supplementation as necessary. 8. History of secondary hyperparathyroidism. Vitamin D level was low. Patient will receive vitamin D in dialysis. Phosphorus level was 4.9. Patient will resume binder therapy. She will be maintained on a renal diet. PLAN: 1. Continue IV antibiotic therapy for her new right lower lobe pneumonia. 2. Encourage patient to allow the nurses to ultrafiltrate her with dialysis and not limit the ability to ultrafiltrate her, as this led to her CHF. 3. GI followup for her chronic pancreatitis and history of esophageal ulcers and erosive gastritis. 4. Continue all dietary restrictions. 5. Continue to monitor patient on telemetry. Thank you for letting me partake and share in the care of our mutual patient. David Crump MD
[2017-08-20] MEDS: DiphenhydrAMINE 50 mg/ml Inj IVP PRN ×3 (06:41→21:21)
[2017-08-20] MEDS: Morphine 4 mg/ml ISec IVP PRN ×2 (08:18→17:04)
--- NOTE | 2017-08-20 09:17 | PN ---
DATE: 08/20/2017 PULMONARY NOTE SUBJECTIVE: The patient appears very comfortable this morning. She is not short of breath at rest. PHYSICAL EXAMINATION: VITAL SIGNS: Temperature is 98.1, pulse is 77, respirations 18, blood pressure 118/62. Oxygen saturation on nasal cannula is 100%. HEENT: Normocephalic, atraumatic. NECK: No JVD. CARDIOVASCULAR: Systolic ejection murmur at the lower left sternal border. No S3 gallop. LUNGS: Crackles at both bases. No rhonchi. No wheezing. EXTREMITIES: Mild edema. No cyanosis, no clubbing. Calves are nontender to palpation. GI: Abdomen is soft. It is still mildly distended and mildly tender to palpation. Bowel sounds are positive. SKIN: No acute rash. NEUROLOGIC: Exam limited at the present time. PERTINENT LABORATORY DATA: CAT scan of the chest was done yesterday and reviewed. There are mild interstitial changes, which appear chronic. There are also small bilateral pleural effusions noted. Adjacent to the pleural effusions, there are areas consistent with minimal compressive atelectasis. There are no lobar consolidations consistent with pneumonia. There is no significant adenopathy. IMPRESSION: 1. Acute pancreatitis. 2. End-stage renal disease. 3. Chronic congestive heart failure. 4. Coronary artery disease. 5. Chronic interstitial changes. 6. Anemia. Plan: The patient appears very comfortable this morning. She is not short of breath at rest. She does state to feeling much, much better overall. I did review the CAT scan of the chest. The CAT scan of the chest is consistent with volume overload and small bilateral pleural effusions. Again, I do not appreciate any lobar consolidations consistent with pneumonia. There is also no significant lymphadenopathy. I would continue with the hemodialysis as per Dr. Crump (Renal)-noted. The patient remains on antibiotic therapy -as per Infectious Disease. There are no temperatures noted. There is no leukocytosis. The procalcitonin is high, as it is in many renal patients. Input by Cardiology (Dr. Tran) is also noted. Clinical status of the patient is significantly improved compared to a few days ago. I will also discuss the above with the attending physician. David Karpman, MD MTDHarsh
[2017-08-20] MEDS: Omega-3-Acid Ethyl Esters 1 GM Cap PO SCH ×2 (09:55→17:05)
[2017-08-20] MEDS: Levothyroxine 25 MCG TAB PO SCH (09:55)
[2017-08-20] MEDS: Multivitamin Therapeutic Tab PO SCH (09:55)
[2017-08-20] MEDS: POLYETHYLENE GLYCOL 3350 17 GM/Dose PACKET PO SCH ×2 (09:57→17:05)
[2017-08-20] MEDS: DARUNAVIR 800 MG PO SCH (09:57)
--- NOTE | 2017-08-20 10:18 | CP.PCM.CON ---
History of Present Illness - History of Present Illness History of Present Illness: Palliative consult requested by Dr Esdras Rubalcava Reason: Goals of care and advance care planning 57 year old female with history of ESRD on HD,CAD and HTN HIV who was as recently admitted with pancreatitis then transitioned to [facility] when she became short of breath. She had some epigastric/chest pressure but denied nausea, vomiting, fever,chills. Chest X ray showed RRL infiltrate and vascular congestion. Labs show persistent pancreatitis, esrd, anemia PMHx: ESRD on HD, CAD,ASHD s/p stent HIV, erosive gastritis, HTN. PSH: Left AV shunt, cholecystectomy. Social History:Non smoker, no alcohol or drug use. , lives independently Family History: DM and heart disease. Advance Care Planning: The patient does not have an Advanced Directive. Review of Systems: As per HPI, otherwise negative 12 point review. Past Patient History - Infectious Disease Hx of Infectious Diseases: None - Tetanus Immunizations Tetanus Immunization: Unknown - Past Medical History & Family History Past Medical History?: Yes - Past Social History Smoking Status: Never Smoked - CARDIAC Hx Cardiac Disorders: Yes (CAD) Hx Hypertension: Yes - PULMONARY Hx Asthma: No Hx Bronchitis: No Hx Chronic Obstructive Pulmonary Disease (COPD): No Hx Emphysema: No Hx Pneumonia: Yes Hx Sleep Apnea: No - NEUROLOGICAL Hx Alzheimer's Disease: No Hx Dementia: No Hx Migraine: Yes Hx Parkinson's Disease: No Hx Seizures: No Hx Transient Ischemic Attacks (TIA): No - HEENT Hx HEENT Problems: No - RENAL Hx Dialysis: Yes Type of Dialysis Access: L AV shunt Date of Last Dialysis Treatment: 08/18/17 Hx Renal Failure: Yes (ESRD (on hemodialysis)) - ENDOCRINE/METABOLIC Hx Hypothyroidism: Yes - HEMATOLOGICAL/ONCOLOGICAL Hx Anemia: Yes Hx Sickle Cell Disease: No - INTEGUMENTARY Hx Dermatological Problems: Yes (generalized body itch on and off) - MUSCULOSKELETAL/RHEUMATOLOGICAL Hx Arthritis: No Hx Falls: No Hx Fractures: Yes (r ft fx) - GASTROINTESTINAL Hx Gall Bladder Disease: Yes Hx Pancreatitis: Yes - GENITOURINARY/GYNECOLOGICAL Hx Sexually Transmitted Disorders: Yes (HIV/AIDS) - PSYCHIATRIC Hx Anxiety: Yes Hx Depression: Yes Hx Substance Use: Yes - SURGICAL HISTORY Hx Appendectomy: Yes Hx Cholecystectomy: Yes Hx Coronary Stent: Yes - ANESTHESIA Hx Anesthesia: Yes Hx Anesthesia Reactions: No Hx Malignant Hyperthermia: No Meds Allergies/Adverse Reactions: Allergies Allergy/AdvReac Type Severity Reaction Status Date / Time MAVIS Inhibitors Allergy SWELLING Verified 08/13/17 22:37 - Medications Medications: Current Medications Acetaminophen (Tylenol 325mg Tab) 650 mg PO Q4 PRN PRN Reason: Fever >100.4 F Aspirin (Ecotrin) 81 mg PO DAILY [facility] Last Admin: 08/20/17 09:56 Dose: 81 mg Atorvastatin Calcium (Lipitor) 20 mg PO DIN [facility] Last Admin: 08/19/17 17:17 Dose: 20 mg Bacitracin (Bacitracin) 1 ea TOP ONCE [facility] Last Admin: 08/19/17 20:18 Dose: 1 ea Calcium Acetate (Phoslo) 667 mg PO WM [facility] Last Admin: 08/20/17 08:19 Dose: 667 mg Clonazepam (Klonopin) 0.5 mg PO HS [facility] PRN Reason: Protocol Last Admin: 08/19/17 21:24 Dose: 0.5 mg Clopidogrel Bisulfate (Plavix) 75 mg PO DAILY [facility] Last Admin: 08/20/17 09:55 Dose: 75 mg Clotrimazole (Mycelex Tejal) 10 mg MT 5XD [facility] Last Admin: 08/20/17 05:25 Dose: 10 mg Diphenhydramine HCl (Benadryl) 25 mg IVP Q4H PRN PRN Reason: Allergy symptoms Docusate Sodium (Colace) 100 mg PO TID [facility] Last Admin: 08/20/17 09:55 Dose: 100 mg Folic Acid (Folic Acid) 1 mg PO DAILY [facility] Last Admin: 08/20/17 09:55 Dose: 1 mg Hydroxyzine HCl (Atarax) 25 mg PO BID PRN PRN Reason: Anxiety Meropenem 500 mg/ Sodium (Chloride) 50 mls @ 100 mls/hr IVPB 1400 [facility] PRN Reason: Protocol Stop: 08/25/17 22:01 Last Admin: 08/19/17 17:12 Dose: 100 mls/hr Levalbuterol HCl (Xopenex) 0.63 mg IH [id number] [facility] Last Admin: 08/20/17 08:00 Dose: 0.63 mg Levothyroxine Sodium (Synthroid) 25 mcg PO DAILY [facility] Last Admin: 08/20/17 09:55 Dose: 25 mcg Metoclopramide HCl (Reglan) 5 mg IVP Q6H [facility] Last Admin: 08/20/17 04:48 Dose: Not Given Metoprolol Tartrate (Lopressor) 50 mg PO BID [facility] Last Admin: 08/20/17 09:55 Dose: 50 mg Mirtazapine (Remeron) 30 mg PO HS [facility] Last Admin: 08/19/17 21:28 Dose: 30 mg Morphine Sulfate (Morphine) 1 mg IVP Q8H PRN PRN Reason: Pain, severe (8-10) Last Admin: 08/20/17 08:18 Dose: 1 mg Multivitamins (Thera Tab) 1 tab PO DAILY [facility] Last Admin: 08/20/17 09:55 Dose: 1 tab Mupirocin (Bactroban Ointment) 0 gm TOP TID [facility] Last Admin: 08/19/17 23:22 Dose: Not Given Non-Formulary Medication (Darunavir [Prezista]) 800 mg PO DAILY [facility] Last Admin: 08/20/17 09:57 Dose: Not Given Non-Formulary Medication (Dolutegravir Sodium [Tivicay]) 50 mg PO DAILY [facility] Last Admin: 08/20/17 09:57 Dose: Not Given Qazbk-1-Kmng Ethyl Esters (Lovaza) 1 gm PO BID [facility] Last Admin: 08/20/17 09:55 Dose: 1 gm Ondansetron HCl (Zofran Inj) 4 mg IVP Q4H PRN PRN Reason: Nausea/Vomiting Pantoprazole Sodium (Protonix Inj) 40 mg IVP Q12 [facility] Last Admin: 08/20/17 09:55 Dose: 40 mg Polyethylene Glycol (Miralax) 17 gm PO BID [facility] Last Admin: 08/20/17 09:57 Dose: Not Given Ritonavir (Norvir) 100 mg PO DAILY [facility] PRN Reason: Protocol Last Admin: 08/19/17 10:25 Dose: Not Given Physical Exam - Constitutional Appears: No Acute Distress - Head Exam Head Exam: NORMAL INSPECTION - Eye Exam Eye Exam: Normal appearance, PERRL - ENT Exam ENT Exam: Mucous Membranes Moist, Normal Oropharynx - Neck Exam Neck exam: Positive for: Normal Inspection - Respiratory Exam Respiratory Exam: Clear to Auscultation Bilateral, NORMAL BREATHING PATTERN - Cardiovascular Exam Cardiovascular Exam: REGULAR RHYTHM, +S1, +S2 - GI/Abdominal Exam GI & Abdominal Exam: Normal Bowel Sounds, Soft - Extremities Exam Extremities exam: Positive for: pedal edema, pedal pulses present - Back Exam Back exam: NORMAL INSPECTION - Neurological Exam Neurological exam: Alert, Oriented x3 - Skin Skin Exam: Dry, Warm - Additional Findings Additional findings: Palliative performance scale raitng 80% Results - Vital Signs Recent Vital Signs: Last Vital Signs Temp 98.1 F 08/20/17 05:53 Pulse 80 08/20/17 09:55 Resp 18 08/20/17 05:53 BP 127/66 08/20/17 09:55 Pulse Ox 100 08/20/17 05:53 - Labs Result Diagrams: 08/19/17 10:20 08/19/17 10:20 Labs: Laboratory Results - last 24 hr 08/19/17 08/19/17 08/19/17 10:20 10:20 10:20 WBC 8.3 D RBC 2.66 L Hgb 8.3 L Hct 26.3 L MCV 98.9 MCH 31.2 MCHC 31.6 RDW 16.9 H Plt Count 83 L MPV 11.8 H Gran % 72.4 H Lymph % (Auto) 15.5 L [place] % (Auto) 10.2 H Eos % (Auto) 1.7 Baso % (Auto) 0.2 Gran # 6.02 Lymph # (Auto) 1.3 [place] # (Auto) 0.9 H Eos # (Auto) 0.1 Baso # (Auto) 0.02 Sodium 142 Potassium 4.4 Chloride 103 Carbon Dioxide 25 Anion Gap 18 BUN 60 H Creatinine 10.4 H* Est GFR ( Amer) 5 Est GFR (Non-Af Amer) 4 Random Glucose 123 H Calcium 9.0 Phosphorus 4.9 H Magnesium 1.9 Iron TIBC % Saturation Ferritin 3980.0 Total Bilirubin 0.5 Direct Bilirubin 0.5 H AST 72 H ALT 71 H Alkaline Phosphatase 109 Total Protein 7.5 Albumin 3.6 Globulin 3.9 Albumin/Globulin Ratio 0.9 L Triglycerides 220 H Cholesterol 127 L LDL Cholesterol Direct 44 HDL Cholesterol 22 L Amylase 271 H Lipase 562 H Vitamin B12 854 25-OH Vitamin D Total Folate > 20.0 Procalcitonin 18.67 H Free T4 Thyroxine (T4) TSH 3rd Generation Blood Type Antibody Screen Crossmatch BBK History Checked 08/19/17 08/19/17 08/20/17 10:20 10:20 08:40 WBC RBC Hgb Hct MCV MCH MCHC RDW Plt Count MPV Gran % Lymph % (Auto) [place] % (Auto) Eos % (Auto) Baso % (Auto) Gran # Lymph # (Auto) [place] # (Auto) Eos # (Auto) Baso # (Auto) Sodium Potassium Chloride Carbon Dioxide Anion Gap BUN Creatinine Est GFR ( Amer) Est GFR (Non-Af Amer) Random Glucose Calcium Phosphorus Magnesium Iron 66 TIBC 179 L % Saturation 37 Ferritin Total Bilirubin Direct Bilirubin AST ALT Alkaline Phosphatase Total Protein Albumin Globulin Albumin/Globulin Ratio Triglycerides Cholesterol LDL Cholesterol Direct HDL Cholesterol Amylase Lipase Vitamin B12 25-OH Vitamin D Total 16.3 L Folate Procalcitonin Free T4 1.01 Thyroxine (T4) 5.1 L TSH 3rd Generation 0.80 Blood Type A POSITIVE Antibody Screen Negative Crossmatch See Detail BBK History Checked Patient has bt 08/20/17 09:00 WBC RBC Hgb Hct MCV MCH MCHC RDW Plt Count MPV Gran % Lymph % (Auto) [place] % (Auto) Eos % (Auto) Baso % (Auto) Gran # Lymph # (Auto) [place] # (Auto) Eos # (Auto) Baso # (Auto) Sodium Potassium Chloride Carbon Dioxide Anion Gap BUN Creatinine Est GFR ( Amer) Est GFR (Non-Af Amer) Random Glucose Calcium Phosphorus Magnesium Iron TIBC % Saturation Ferritin Total Bilirubin Direct Bilirubin AST ALT Alkaline Phosphatase Total Protein Albumin Globulin Albumin/Globulin Ratio Triglycerides Cholesterol LDL Cholesterol Direct HDL Cholesterol Amylase Lipase 941 H Vitamin B12 25-OH Vitamin D Total Folate Procalcitonin Free T4 Thyroxine (T4) TSH 3rd Generation Blood Type Antibody Screen Crossmatch BBK History Checked Assessment & Plan - Assessment and Plan (Free Text) Assessment: 57 year old female with history of ESRD on HD,CAD and HTN HIV who was on TRCU when she developed epigastric pain and shortness of breath. She was admitted with pancreatitis,RLL, fluid retention requiring emergent dialysis. Patient is alert and oriented, offers no complaints. States she is feeling better and looking forward to being disgorged. Lengthy advance care planning discussion ensued. The patients daughters Elisabeth and Nhi listening in on speaker phone. Benefits and burdens of resuscitation explained, questions answered. Goals of care established. Fannie understands ramifications of resuscitation and maintains she wants to be full code. The patient does not want life prolonged on machines if her condition is determined to be irreversible/terminal. Daughters understand mothers goals and agree to comply with her wishes. Advance Directive as well as POLST form completed, a copy is placed on the chart. Time spent with patient/family in goals of care and advance care planning conversation, 45 minutes Plan: Shortness of breath, secondary to fluid retention/ pneumonia>resolved: Monitor IVF's,HD continue Merrem. Pancreatitis, chronic: Continue Merrem, conservative hydration. HTN/CAD: Continue Lopressor Goals of care and advance care planning: Advance Directive/POLST/ Full code
--- NOTE | 2017-08-20 10:36 | PN ---
DATE: 08/20/2017 SUBJECTIVE: The patient is lying in bed. She has some mild diffuse abdominal pain. She denies any nausea or vomiting. She is hungry. She would like to eat solid foods. She denies any shortness of breath or chest pain. PHYSICAL EXAMINATION: VITAL SIGNS: Reveal temperature of 98.1, blood pressure 118/62, heart rate of 77. HEENT: Reveals sclerae to be white. Conjunctivae pale. NECK: Supple. CHEST: Reveals scattered rhonchi at the bases. HEART: Reveals regular rate and rhythm. ABDOMEN: Soft, nontender. No mass. EXTREMITIES: Show no edema. LABORATORY DATA: No new laboratory data available. IMPRESSION: 1. Flash pulmonary edema. 2. Chronic abdominal pain. 3. Elevated amylase and lipase. 4. End-stage renal disease. 5. Chronic anemia and thrombocytopenia. 6. Human immunodeficiency virus disease. RECOMMENDATIONS: 1. We will advance diet to a low-fat renal diet. 2. Long-term prognosis is poor. Continue supportive care. Paul Snider MD
--- NOTE | 2017-08-20 11:04 | CP.PCM.PN ---
<Godfrey Sanford - Last Filed: 08/20/17 10:59> Subjective - Date & Time of Evaluation Date of Evaluation: 08/20/17 Time of Evaluation: 10:59 - Subjective Subjective: Medicine progress note for Dr. Rubalcava service Patient seen and examined at bedside this morning. No acute overnight events or new complaints reported. Patient reports mild shortness of breath that has improved since admission. Discussed importance of duiresis during dialysis as well as restriction of fluid intake. Denied chest pain, palpitations. Objective - Vital Signs/Intake and Output Vital Signs (last 24 hours): Temp Pulse Resp BP Pulse Ox 98.1 F 80 18 127/66 100 08/20/17 05:53 08/20/17 09:55 08/20/17 05:53 08/20/17 09:55 08/20/17 05:53 Intake and Output: 08/20/17 08/20/17 06:59 18:59 Intake Total 600 Balance 600 - Medications Medications: Current Medications Acetaminophen (Tylenol 325mg Tab) 650 mg PO Q4 PRN PRN Reason: Fever >100.4 F Aspirin (Ecotrin) 81 mg PO DAILY [facility] Last Admin: 08/20/17 09:56 Dose: 81 mg Atorvastatin Calcium (Lipitor) 20 mg PO DIN [facility] Last Admin: 08/19/17 17:17 Dose: 20 mg Bacitracin (Bacitracin) 1 ea TOP ONCE [facility] Last Admin: 08/19/17 20:18 Dose: 1 ea Calcium Acetate (Phoslo) 667 mg PO WM [facility] Last Admin: 08/20/17 08:19 Dose: 667 mg Clonazepam (Klonopin) 0.5 mg PO HS [facility] PRN Reason: Protocol Last Admin: 08/19/17 21:24 Dose: 0.5 mg Clopidogrel Bisulfate (Plavix) 75 mg PO DAILY [facility] Last Admin: 08/20/17 09:55 Dose: 75 mg Clotrimazole (Mycelex Tejal) 10 mg MT 5XD [facility] Last Admin: 08/20/17 10:42 Dose: 10 mg Diphenhydramine HCl (Benadryl) 25 mg IVP Q4H PRN PRN Reason: Allergy symptoms Docusate Sodium (Colace) 100 mg PO TID [facility] Last Admin: 08/20/17 09:55 Dose: 100 mg Folic Acid (Folic Acid) 1 mg PO DAILY [facility] Last Admin: 08/20/17 09:55 Dose: 1 mg Hydroxyzine HCl (Atarax) 25 mg PO BID PRN PRN Reason: Anxiety Meropenem 500 mg/ Sodium (Chloride) 50 mls @ 100 mls/hr IVPB 1400 DOUGLAS PRN Reason: Protocol Stop: 08/25/17 22:01 Last Admin: 08/19/17 17:12 Dose: 100 mls/hr Levalbuterol HCl (Xopenex) 0.63 mg IH [id number] [facility] Last Admin: 08/20/17 08:00 Dose: 0.63 mg Levothyroxine Sodium (Synthroid) 25 mcg PO DAILY [facility] Last Admin: 08/20/17 09:55 Dose: 25 mcg Metoclopramide HCl (Reglan) 5 mg IVP Q6H [facility] Last Admin: 08/20/17 10:41 Dose: 5 mg Metoprolol Tartrate (Lopressor) 50 mg PO BID [facility] Last Admin: 08/20/17 09:55 Dose: 50 mg Mirtazapine (Remeron) 30 mg PO HS [facility] Last Admin: 08/19/17 21:28 Dose: 30 mg Morphine Sulfate (Morphine) 1 mg IVP Q8H PRN PRN Reason: Pain, severe (8-10) Last Admin: 08/20/17 08:18 Dose: 1 mg Multivitamins (Thera Tab) 1 tab PO DAILY [facility] Last Admin: 08/20/17 09:55 Dose: 1 tab Mupirocin (Bactroban Ointment) 0 gm TOP TID [facility] Last Admin: 08/20/17 10:41 Dose: 1 applic Non-Formulary Medication (Darunavir [Prezista]) 800 mg PO DAILY [facility] Last Admin: 08/20/17 09:57 Dose: Not Given Non-Formulary Medication (Dolutegravir Sodium [Tivicay]) 50 mg PO DAILY [facility] Last Admin: 08/20/17 09:57 Dose: Not Given [id number] Ethyl Esters (Lovaza) 1 gm PO BID [facility] Last Admin: 08/20/17 09:55 Dose: 1 gm Ondansetron HCl (Zofran Inj) 4 mg IVP Q4H PRN PRN Reason: Nausea/Vomiting Pantoprazole Sodium (Protonix Inj) 40 mg IVP Q12 [facility] Last Admin: 08/20/17 09:55 Dose: 40 mg Polyethylene Glycol (Miralax) 17 gm PO BID [facility] Last Admin: 08/20/17 09:57 Dose: Not Given Ritonavir (Norvir) 100 mg PO DAILY [facility] PRN Reason: Protocol Last Admin: 08/20/17 10:41 Dose: 100 mg - Labs Labs: 08/19/17 10:20 08/19/17 10:20 - Constitutional Appears: No Acute Distress - Head Exam Head Exam: ATRAUMATIC, NORMOCEPHALIC - Eye Exam Eye Exam: EOMI, PERRL - ENT Exam ENT Exam: Mucous Membranes Moist - Respiratory Exam Respiratory Exam: absent: Rales, Wheezes Additional comments: bibasilar crackles - Cardiovascular Exam Cardiovascular Exam: RRR, +S1, +S2. absent: Gallop, Rubs - GI/Abdominal Exam GI & Abdominal Exam: Soft. absent: Distended, Firm, Guarding, Tenderness, Rebound - Neurological Exam Neurological Exam: Alert, Awake, Oriented x3 - Psychiatric Exam Psychiatric exam: Normal Affect, Normal Mood - Skin Skin Exam: Dry, Intact, Normal Color, Warm Assessment and Plan - Assessment and Plan (Free Text) Plan: 57 year old female with history of HIV, HTN, CAD on Plavix, pancreatitis, ESRD on HD and chronic systolic heart failure admitted for shortness of breath likely secondary to flash pulmonary edema 1. Shortness of breath likely 2/2 flash pulmonary edema VS pneumonia - Patient is s/p emergent dialysis - Chest XR showed new infiltrate in right lower lobe - Continue meropenem per ID recommendations - Pulmonology consulted - Dr. Simon - Nebulizers as ordered - OOB to chair - HOB > 35' - Chest PT 2. Hx of Pancreatitis - Per GI, unlikely to have acute pancreatitis at this time - Tapering morphine - GI consulted - Dr. Snider 3. CAD - ASA, Lipitor, Lopressor - Dr. Tran on consult 4. HTN - Lopressor 5. HLD - Lipitor 6. HIV - Continue Ritonavir, Dulutegravir, Darunavir - Dr. Calvert on consult 7. ESRD on HD - Continue with hemodialysis as indicated per nephrology - Nephrology consulted - Dr. Shukla 8. Hypothyroidism - Continue synthroid 9. History of Major Depressive - Continue with Klonopin, Remeron 10. GI/DVT prophylaxis -Protonix/SCD's Patient seen and case discussed/reviewed with attending, Dr. Rubalcava <Ranjith Rubalcava - Last Filed: 08/25/17 17:07> Objective - Vital Signs/Intake and Output Vital Signs (last 24 hours): Temp Pulse Resp BP Pulse Ox 98 F 82 18 148/94 H 100 08/22/17 06:00 08/22/17 06:00 08/22/17 06:00 08/22/17 06:00 08/22/17 06:00 - Labs Labs: 08/22/17 06:45 08/21/17 10:20 Attending/Attestation - Attestation I have personally seen and examined this patient.: Yes I have fully participated in the care of the patient.: Yes I have reviewed all pertinent clinical information, including history, physical exam and plan: Yes Notes (Text): Please see/read my dictated notes.
--- NOTE | 2017-08-20 12:34 | PN ---
DATE: 08/20/2017 CARDIOLOGY FOLLOWUP SUBJECTIVE: The patient is chest pain free. PHYSICAL EXAMINATION: VITAL SIGNS: Blood pressure is 127/66, heart rates in the 80s. NECK: Negative JVD. LUNGS: Without rales. HEART: Reveals S1 and S2. EXTREMITIES: Without edema. LABORATORY DATA: Potassium is 4.4. Hemoglobin is 8.3. IMPRESSION: 1. End-stage renal disease. 2. Resolution of chest pain. 3. No evidence for acute coronary syndrome. 4. Anemia. 5. History of human immunodeficiency virus. PLAN: Given these findings, no further cardiac workup is indicated at this time. We will discontinue telemetry today. Derrick Tran MD
[2017-08-20] MEDS: Meropenem 500 MG in Sodium Chloride 0.9% 50 ML IVPB SCH (15:39)
--- NOTE | 2017-08-20 16:28 | PN ---
DATE: 08/20/2017 SUBJECTIVE: The patient is seen again lying in room 271, bed 2. Overnight nurse's notes were reviewed. The patient did not have any episodes of pain and did not complain of any chest pain. PHYSICAL EXAMINATION: VITAL SIGNS: T-max 98.7. Telemetry shows sinus rhythm, heart rate 77, 73, 74, 80. Blood pressure 127/66, 127/74. Respiration 18, O2 sat 100%. HEAD: Normocephalic, atraumatic. EENT: Shows pinkish pale conjunctivae. Anicteric sclerae. No oropharyngeal lesion. No neck rigidity. CHEST: Kyphosis. LUNGS: Show positive rhonchi, crackles bilaterally. CARDIOVASCULAR: Shows S1, S2, regular rhythm. Positive systolic murmur in left sternal border, right second intercostal space, left second intercostal space. ABDOMEN: Soft. Positive bowel sounds. Today abdominal examination is totally nontender and the patient is not holding my hand while I am examining and palpating the abdomen. MUSCULOSKELETAL: Shows a body mass index of 23. NEUROLOGIC: The patient is alert, awake, oriented x3. Cranial nerves II through XII limited. Gait examination could not be tested. VASCULAR: Palpable pulses. Positive left upper extremity AV fistula, positive thrill noted. NEUROLOGIC: The patient is alert, awake, oriented x3. Body mass index is 23. DIAGNOSTICS: WBC 8.3, hemoglobin/hematocrit 8.3/26.3, platelet 83,000, granulocytes 74. Sodium 142, potassium 4.4, chloride 103, CO2 of 25, anion gap 18, BUN 60, creatinine 10.4, glucose 123, calcium 9.0, phosphorus 4.9, magnesium 1.9. Iron studies were reviewed. LFTs: AST 72, ALT 71, triglyceride 220, cholesterol 127, LDL 44, HDL 22, amylase and lipase is 271 and 562. Vitamin B12 is 854. Vitamin D 25-hydroxy 16.3. Procalcitonin level greater than 18. TSH is 0.80. Blood cultures, no growth. CT chest was reviewed. EKG was reviewed. IMPRESSION: 1. Shortness of breath and status post rapid response secondary to shortness of breath. 2. Normocytic anemia with thrombocytopenia and granulocytosis. 3. End-stage renal disease, hemodialysis dependent. 4. Transaminitis. 5. Hypertriglyceridemia. 6. Elevated amylase and lipase, etiology undetermined. 7. Hypovitaminosis D. 8. Hyperprocalcitonemia. 9. Increasing bibasilar atelectasis and bilateral pleural effusion. 10. Bilateral upper lobe opacity versus pneumonia. 11. Cardiomegaly. 12. Moderate pericardial effusion. 13. Mediastinal lymphadenopathy. 14. Hiatal hernia. 15. 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 16. Cholecystectomy. 17. Hepatic and perisplenic ascites. 18. Status post flash pulmonary edema with symptoms of shortness of breath. 19. HIV acquired immune deficiency syndrome with severe noncompliance with HIV therapy. 20. History of noncompliance. 21. Narcotic seeking behavior. 22. Chronic abdominal pain and musculoskeletal pain. 23. Dilated cardiomyopathy with left ventricular ejection fraction of 36%. 24. Pulmonary arterial hypertension with elevated right ventricular systolic pressure of 57 mmHg. 25. Moderate to severely impaired left ventricular systolic function with global left ventricular hypokinesis. 26. Grade 2 pseudonormal filling dynamics. 27. Borderline dilated left and right atrium. 28. Moderately thickened aortic valve. 29. Moderately thickened mitral valve with moderate mitral regurgitation. 30. Moderate tricuspid regurgitation with moderate pulmonary arterial hypertension and right ventricular systolic pressure of 57 mmHg. 31. Questionable pancreatitis. 32. Possible mood disorder. 1. Shortness of breath, etiology undetermined. 2. Status post rapid response secondary to shortness of breath. 3. History of narcotic dependent pain syndrome and narcotic seeking behavior. 4. Tachycardia. 5. Leukopenia. 6. Human immunodeficiency virus infection, acquired immune deficiency syndrome. 7. History of severe noncompliance and poor compliance. 8. Anemia, thrombocytopenia and pancytopenia. 9. Hypoxemia. 10. End-stage renal disease, hemodialysis dependent via the left upper extremity arteriovenous fistula. 11. Questionable systolic congestive heart failure with elevated BNP. 12. Transaminitis. 13. Elevated lipase, etiology undetermined. 14. History of hypothyroidism. 15. Worsening pulmonary venous congestion and right lower lobe consolidation. 16. Cardiomegaly. 17. Possible pneumonia. 18. Right lower lobe consolidation, questionable healthcare-associated pneumonia and consolidation. 19. Narcotic seeking pain syndrome. 20. Normocytic anemia and thrombocytopenia. 21. Nonspecific ST-T wave abnormalities. 22. Questionable gastroparesis. 23. Insomnia. 24. Questionable depression. 25. History of opioid addiction. 26. Possible mood disorder secondary to above. 27. Major depressive disorder. PLAN AT THIS TIME: The patient has been consulted with Cardiology, Gastroenterology, Infectious Disease, Nephrology, Psychiatry and Pulmonary. The patient will be transfused 1 to 2 units of PRBC on dialysis. CURRENT MEDICATIONS: Atarax 25 mg b.i.d. p.r.n., Bactroban cream, Benadryl 25 IV every 4 hours p.r.n., Colace 100 mg 3 times a day, Prezista 800 mg daily, Tivicay 50 mg daily, Ecotrin 81 mg daily, folic acid 1 mg daily, Klonopin 0.5 at bedtime, Lipitor 20 mg daily, Lopressor 50 mg twice a day, Lovaza 1 gm twice a day, meropenem 500 mg IV daily, MiraLAX 17 gm twice a day. The patient's morphine will be titrated down to 0.5 mg IV every 8 hours p.r.n. The patient has been ordered to be encouraged to be out of bed to chair. The patient is on Mycelex Tejal 10 mg five times a day, Norvir 100 mg daily, PhosLo 667 mg with meals, Plavix 75 mg daily, Protonix 40 IV every 12 hours, Reglan 5 mg IV every 6 hours, Remeron 30 mg at bedtime, Synthroid 25 mcg p.o. daily, multivitamin 1 tablet daily, Tylenol 650 p.o. every 4 hours p.r.n., Xopenex nebulizer 0.63 mg every 6 hours, Zofran 4 mg IV every 4 hours p.r.n. Chest PT, renal diet, out of bed. Discontinue telemetry. Physical therapy, occupational therapy has been ordered. The patient has been again counseled about compliance with medications, doctors recommendation and close outpatient followup with Infectious Disease, Cardiology and Medicine was reemphasized to the patient and also with the patient's daughter. The patient is seen by Meagan Hou for advanced directive living will. The patient's further management will be dependent upon the patient's clinical condition, hemodynamic status and as per the patient response to therapeutic intervention, as per recommendation by Cardiology, Gastroenterology, Infectious Disease, Nephrology, Psychiatry and Pulmonary. Dictated and electronically signed, not read. Ranjith Rubalcava MD [facility] # [id number] ARMIDA
[2017-08-20] MEDS: Pantoprazole 40 mg EC Tab PO SCH (21:12)
--- NOTE | 2017-08-20 21:14 | PN ---
DATE: 08/20/2017 SUBJECTIVE: The patient is seen lying in bed. She is awake. She is alert. She reports that her breathing is better. She denies any chest tightness at present. PHYSICAL EXAMINATION: GENERAL: A middle-aged lady lying in bed. VITAL SIGNS: Blood pressure 139/80, heart rate 80, respiratory rate 18, temperature 98. HEENT: Normocephalic, atraumatic. NECK: Supple, no JVD. LUNGS: Bilateral equal entry, bilateral basilar rales. CARDIAC: S1 and S2, regular rate and rhythm, no murmur, no rub. ABDOMEN: Soft, nondistended, nontender, bowel sounds present. EXTREMITIES: No lower extremity edema. LABORATORY DATA: Hemoglobin 8.3, potassium 4.4. CT of the chest done yesterday, small right pleural effusion, mild right basilar atelectasis, tiny left effusion, marked cardiomegaly. CURRENT MEDICATIONS: Atarax, bacitracin, Benadryl, Colace, aspirin, folic acid, Klonopin, Lipitor, Lopressor 50 b.i.d., Lovaza, meropenem 500 daily, MiraLax, morphine, Mycelex, PhosLo, Plavix, Protonix, Reglan, Remeron, Tylenol, Xopenex, and Zofran. ASSESSMENT: 1. Decompensated congestive heart failure, questionable pneumonia. 2. End-stage renal disease. 3. Human immunodeficiency virus/acquired immunodeficiency syndrome. 4. Esophageal ulcer, history of esophageal Cony. 5. ?Right lower lobe pneumonia. 6. Chronic anemia. 7. Secondary hyperparathyroidism. PLAN: 1. Continue antibiotics as per ID recommendations. 2. Aggressive ultrafiltration, on dialysis. 3. Fluid restriction. 4. Continue antiretrovirals. 5. No objection to transfer to [facility]. Meryl Shukla MD
[2017-08-21] MEDS: Morphine 4 mg/ml ISec IVP PRN ×2 (01:00→09:27)
[2017-08-21] MEDS: Levalbuterol 0.63 MG/3 ML Inhal Soln UD IH SCH ×4 (01:16→19:56)
[2017-08-21] MEDS: DiphenhydrAMINE 50 mg/ml Inj IVP PRN ×3 (08:43→21:11)
--- NOTE | 2017-08-21 08:56 | PN ---
DATE: 08/20/2017 SUBJECTIVE: The patient was seen early this morning in room 271, bed 2. She states that she still feels weak, has some cough and abdominal discomfort; however, overall she is improving. PHYSICAL EXAMINATION: VITAL SIGNS: Temperature is 98, blood pressure is 130/80, respiratory rate of 18, heart rate of 85. HEENT: Unremarkable. NECK: Supple. LUNGS: Have decreased breath sounds. HEART: Normal S1, S2. ABDOMEN: Soft, nontender. LABORATORY EXAMINATION: Reveals the patient's white count of 8.3, hemoglobin of 8, platelets of 83. Chemistries are noted. Microbiology reveals the cultures are negative. ASSESSMENT AND PLAN: This is a 57-year-old female, known to me with end-stage renal disease and chronic renal failure, on hemodialysis, coronary artery disease, urinary tract infection, hypertension, esophageal ulcers, erosive gastritis with pulmonary edema, and admitted with pulmonary edema, AIDS, pancreatitis, on dolutegravir, darunavir and Norvir. We will follow with you. Currently on meropenem. Check on the final culture results and make further recommendations. Meliton Rodriguez MD
[2017-08-21] MEDS: Pantoprazole 40 mg EC Tab PO SCH ×2 (09:27→21:11)
[2017-08-21] MEDS: Levothyroxine 25 MCG TAB PO SCH (09:27)
[2017-08-21] MEDS: Omega-3-Acid Ethyl Esters 1 GM Cap PO SCH ×2 (09:27→17:46)
[2017-08-21] MEDS: Multivitamin Therapeutic Tab PO SCH (09:27)
[2017-08-21] MEDS: DARUNAVIR 800 MG PO SCH (09:29)
[2017-08-21] MEDS: POLYETHYLENE GLYCOL 3350 17 GM/Dose PACKET PO SCH ×2 (09:30→17:46)
--- NOTE | 2017-08-21 10:27 | CP.PCM.PN ---
<Godfrey Sanford - Last Filed: 08/21/17 10:24> Subjective - Date & Time of Evaluation Date of Evaluation: 08/21/17 Time of Evaluation: 10:24 - Subjective Subjective: Medicine progress note for Dr. Rubalcava's service Patient seen and examined at bedside this morning. No overnight events or new complaints reported. She is aware of her scheduled dialysis session today. Denies chest pain, palpitations, SOB. Objective - Vital Signs/Intake and Output Vital Signs (last 24 hours): Temp Pulse Resp BP Pulse Ox 98.8 F 78 20 147/87 100 08/21/17 06:00 08/21/17 06:00 08/21/17 06:00 08/21/17 06:00 08/21/17 06:00 Intake and Output: 08/21/17 08/21/17 06:59 18:59 Intake Total 540 Balance 540 - Medications Medications: Current Medications Acetaminophen (Tylenol 325mg Tab) 650 mg PO Q4 PRN PRN Reason: Fever >100.4 F Aspirin (Ecotrin) 81 mg PO DAILY [facility] Last Admin: 08/20/17 09:56 Dose: 81 mg Atorvastatin Calcium (Lipitor) 20 mg PO DIN [facility] Last Admin: 08/20/17 17:05 Dose: 20 mg Bacitracin (Bacitracin) 1 ea TOP ONCE [facility] Last Admin: 08/19/17 20:18 Dose: 1 ea Calcium Acetate (Phoslo) 667 mg PO WM [facility] Last Admin: 08/21/17 08:20 Dose: 667 mg Clonazepam (Klonopin) 0.5 mg PO HS [facility] PRN Reason: Protocol Last Admin: 08/20/17 21:11 Dose: 0.5 mg Clopidogrel Bisulfate (Plavix) 75 mg PO DAILY [facility] Last Admin: 08/20/17 09:55 Dose: 75 mg Clotrimazole (Mycelex Tejal) 10 mg MT 5XD [facility] Last Admin: 08/21/17 09:27 Dose: 10 mg Diphenhydramine HCl (Benadryl) 25 mg IVP Q4H PRN PRN Reason: Allergy symptoms Last Admin: 08/21/17 08:43 Dose: 25 mg Docusate Sodium (Colace) 100 mg PO TID [facility] Last Admin: 08/21/17 09:29 Dose: Not Given Folic Acid (Folic Acid) 1 mg PO DAILY [facility] Last Admin: 08/21/17 09:27 Dose: 1 mg Hydroxyzine HCl (Atarax) 25 mg PO BID PRN PRN Reason: Anxiety Meropenem 500 mg/ Sodium (Chloride) 50 mls @ 100 mls/hr IVPB 1400 DOUGLAS PRN Reason: Protocol Stop: 08/25/17 22:01 Last Admin: 08/20/17 15:39 Dose: 100 mls/hr Levalbuterol HCl (Xopenex) 0.63 mg IH [id number] [facility] Last Admin: 08/21/17 08:00 Dose: 0.63 mg Levothyroxine Sodium (Synthroid) 25 mcg PO DAILY [facility] Last Admin: 08/21/17 09:27 Dose: 25 mcg Metoclopramide HCl (Reglan) 5 mg PO Q6H [facility] Last Admin: 08/21/17 08:20 Dose: 5 mg Metoprolol Tartrate (Lopressor) 50 mg PO BID [facility] Last Admin: 08/20/17 17:05 Dose: 50 mg Mirtazapine (Remeron) 30 mg PO HS [facility] Last Admin: 08/20/17 21:13 Dose: 30 mg Morphine Sulfate (Morphine) 0.5 mg IVP Q8H PRN PRN Reason: Pain, severe (8-10) Last Admin: 08/21/17 09:27 Dose: 0.5 mg Multivitamins (Thera Tab) 1 tab PO DAILY [facility] Last Admin: 08/21/17 09:27 Dose: 1 tab Mupirocin (Bactroban Ointment) 0 gm TOP TID [facility] Last Admin: 08/21/17 09:28 Dose: Not Given Non-Formulary Medication (Darunavir [Prezista]) 800 mg PO DAILY [facility] Last Admin: 08/21/17 09:29 Dose: Not Given Non-Formulary Medication (Dolutegravir Sodium [Tivicay]) 50 mg PO DAILY [facility] Last Admin: 08/21/17 09:29 Dose: Not Given [id number] Ethyl Esters (Lovaza) 1 gm PO BID [facility] Last Admin: 08/21/17 09:27 Dose: 1 gm Ondansetron HCl (Zofran Inj) 4 mg IVP Q4H PRN PRN Reason: Nausea/Vomiting Pantoprazole Sodium (Protonix Ec Tab) 40 mg PO Q12 [facility] Last Admin: 08/21/17 09:27 Dose: 40 mg Polyethylene Glycol (Miralax) 17 gm PO BID [facility] Last Admin: 08/21/17 09:30 Dose: Not Given Ritonavir (Norvir) 100 mg PO DAILY [facility] PRN Reason: Protocol Last Admin: 08/21/17 09:27 Dose: 100 mg - Labs Labs: 08/19/17 10:20 08/19/17 10:20 - Constitutional Appears: No Acute Distress - Head Exam Head Exam: ATRAUMATIC, NORMOCEPHALIC - Eye Exam Eye Exam: EOMI, PERRL - ENT Exam ENT Exam: Mucous Membranes Moist - Respiratory Exam Respiratory Exam: absent: Rales, Rhonchi, Wheezes Additional comments: crackles bilaterally - Cardiovascular Exam Cardiovascular Exam: RRR, +S1, +S2. absent: Gallop, JVD, Rubs - GI/Abdominal Exam GI & Abdominal Exam: Soft. absent: Distended, Firm, Guarding, Rigid, Tenderness , Rebound - Extremities Exam Extremities Exam: Normal Inspection - Neurological Exam Neurological Exam: Alert, Awake, Oriented x3 - Psychiatric Exam Psychiatric exam: Normal Affect, Normal Mood - Skin Skin Exam: Dry, Intact, Normal Color, Warm Assessment and Plan - Assessment and Plan (Free Text) Plan: 57 year old female with history of HIV, HTN, CAD on Plavix, pancreatitis, ESRD on HD and chronic systolic heart failure admitted for shortness of breath likely secondary to flash pulmonary edema 1. Shortness of breath likely 2/2 flash pulmonary edema VS pneumonia - Patient is s/p emergent dialysis and is presently scheduled to receive dialysis per her regular schedule - Scheduled to receive 2 unit PRBC during dialysis today - Chest XR showed possibility of infiltrate in right lower lobe - Continue meropenem per ID recommendations - Pulmonology consulted - Dr. Simon - Nebulizers as ordered - OOB to chair - HOB > 35' - Chest PT - PT notes reviewed 2. Hx of Pancreatitis - Per GI, unlikely to have acute pancreatitis at this time - Advanced diet as tolerated - GI consulted - Dr. Snider 3. CAD - ASA, Lipitor, Lopressor - Dr. Tran on consult 4. HTN - Lopressor 5. HLD - Lipitor 6. HIV - Continue Ritonavir, Dulutegravir, Darunavir - Dr. Calvert on consult 7. ESRD on HD - Continue with hemodialysis as indicated per nephrology - Nephrology consulted - Dr. Shukla 8. Hypothyroidism - Continue synthroid 9. History of Major Depressive - Continue with Klonopin, Remeron 10. GI/DVT prophylaxis -Protonix/SCD's Patient seen and case discussed/reviewed with attending, Dr. Rubalcava <Ranjith Rubalcava - Last Filed: 08/25/17 17:08> Objective - Vital Signs/Intake and Output Vital Signs (last 24 hours): Temp Pulse Resp BP Pulse Ox 98 F 82 18 148/94 H 100 08/22/17 06:00 08/22/17 06:00 08/22/17 06:00 08/22/17 06:00 08/22/17 06:00 - Labs Labs: 08/22/17 06:45 08/21/17 10:20 Attending/Attestation - Attestation I have personally seen and examined this patient.: Yes I have fully participated in the care of the patient.: Yes I have reviewed all pertinent clinical information, including history, physical exam and plan: Yes Notes (Text): Please see/read my dictated notes.
[2017-08-21 10:31] LABS: BASO # 0.03 K/mm3 (0.0-2.0); BASO % 0.5 % (0.0-3.0); EOS # 0.2 (0.0-0.7); GRAN # 4.14 (1.4-6.5); GRAN % 65.9 % (50.0-68.0); HEMOGLOBIN 8.1 g/dL (12.0-16.0); LYMPH % 16.1 % (22.0-35.0); MEAN CELL VOLUME 100.8 fl (80.0-105.0); MEAN CORPUSCULAR HGB CONC 30.8 g/dl (31.0-37.0); MEAN PLATELET VOLUME 10.8 fl (7.0-11.0); MONO # 0.9 (0.1-0.6); MONO % 14.5 % (1.0-6.0); RBC 2.61 10^6/uL (3.5-6.1); RED CELL DISTRIBUTION WIDTH 16.9 % (11.5-14.5); WHITE BLOOD COUNT 6.3 10^3/ul (4.5-11.0)
--- NOTE | 2017-08-21 10:38 | PN ---
DATE: 08/21/2017 SUBJECTIVE: The patient is lying in bed comfortable. She denies any abdominal pain, nausea, vomiting. PHYSICAL EXAMINATION: VITAL SIGNS: Reveal a temperature of 98.8, blood pressure 147/87, heart rate 78. HEENT: Reveals sclerae to be white. Conjunctivae pink. NECK: Supple. CHEST: Lungs are clear. HEART: Reveals a regular rate and rhythm. ABDOMEN: Softly distended, nontender. No mass. EXTREMITIES: Show no edema. LABORATORY DATA: Reveals serum lipase of 806. IMPRESSION: 1. Chronic abdominal pain. 2. Flash pulmonary edema. 3. Coronary artery disease. 4. End-stage renal disease, on dialysis. 5. Coronary artery disease. 6. Human immunodeficiency virus positivity. 7. Chronic anemia and thrombocytopenia. 8. Elevated lipase, doubt acute pancreatitis. RECOMMENDATIONS: 1. Continue supportive care. 2. Long-term prognosis is poor. She has been seen by Palliative [facility] Services. Paul Snider MD
[2017-08-21 10:46] LABS: ALB/GLOB RATIO 0.9 (1.1-1.8); ALBUMIN 3.6 g/dL (3.0-4.8); CALCIUM 8.9 mg/dL (8.4-10.5)
--- NOTE | 2017-08-21 11:54 | PN ---
DATE: 08/21/2017 PULMONARY NOTE SUBJECTIVE: The patient appears very comfortable this morning. She is not short of breath at rest. PHYSICAL EXAMINATION VITAL SIGNS: Temperature is 98.8, pulse is 78, respirations 18, blood pressure 147/87. Oxygen saturation on room air is 100%. HEENT: Normocephalic, atraumatic. No JVD. CARDIOVASCULAR: Systolic ejection murmur at the lower left sternal border. No S3 gallop. LUNGS: Crackles at both bases. Otherwise clear. EXTREMITIES: Mild edema. No cyanosis, no clubbing. Calves are nontender to palpation. GI: Abdomen is soft. It is much less distended and much less tender to palpation. Bowel sounds are positive. SKIN: No acute rash. NEUROLOGIC: Limited at the present time. IMPRESSION: 1. Acute pancreatitis. 2. End-stage renal disease. 3. Chronic congestive heart failure. 4. Coronary artery disease. 5. Chronic interstitial changes. 6. Anemia. PLAN: The patient appears very comfortable this morning. She is not short of breath at rest. She does state to feeling much, much better overall. On physical exam, her bronchospasm has primarily resolved. In addition, the oxygen saturation on room air is now 100%. We can continue with the nebulizer treatments for now. I did note the CAT scan findings in yesterday's assessment. Again, the CAT scan is not consistent with acute pneumonia. In addition, there have been no temperatures noted. There is no leukocytosis. Antibiotic coverage will be as per Infectious Disease. The clinical status of this patient is significantly improved overall. At this point in time, no additional pulmonary intervention is needed or warranted. I will thus follow up on this patient again as requested. Please call me for any additional pulmonary questions or problems. Thank you for allowing me to participate in the care of this patient. David Avila MD ARMIDA
[2017-08-21] MEDS: Meropenem 500 MG in Sodium Chloride 0.9% 50 ML IVPB SCH (16:08)
--- NOTE | 2017-08-21 16:23 | PN ---
DATE: 08/21/2017 SUBJECTIVE: The patient was seen in room 568, bed 2. The patient is sitting up in the bed. The patient is comfortable, in no distress. Overnight nurse's notes were reviewed. The patient was transferred from telemetry to . PHYSICAL EXAMINATION: VITAL SIGNS: T-max 98.8; pulse 78, 74, 89; blood pressure 147/87; respiration 20; O2 sat 100%. HEENT: Head: Normocephalic, atraumatic. HEENT examination shows positive alopecia. Pale conjunctivae, anicteric sclerae. No oropharyngeal lesion. No carotid bruit. CHEST: Kyphosis. LUNGS: Shows positive rhonchi bilaterally. Decreased breath sounds at the base, left more than the right. CARDIOVASCULAR: S1, S2, regular rhythm. Positive systolic murmur in left sternal border, right second intercostal space, left second intercostal space. ABDOMEN: Soft. Positive bowel sounds. No reproducible abdominal tenderness noted. No costovertebral angle tenderness. GENITALIA: Female. RECTAL: Deferred. EXTREMITY: Shows positive left upper extremity AV fistula, positive thrill. MUSCULOSKELETAL: Shows a body mass index of 23. NEUROLOGIC: The patient is alert, awake, oriented x3. Cranial nerves II through XII grossly intact. Motor strength is 5/5 in upper and lower extremity. Gait examination is not tested. LABORATORY DATA: Repeat lab work from 08/21, WBC 6.3, hemoglobin/hematocrit 8.1/26.3, platelet 104. Sodium 143, potassium 3.4, chloride 101, CO2 30, anion gap 16, BUN 45, creatinine 8.9, glucose 148, calcium 8.9, phosphorus 3.3, magnesium 2.0. AST 68, ALT 57. Lipase is 806. Vitamin D 25-hydroxy 16.3. Blood cultures, negative. Blood type is A+. CT chest, reviewed. EKG, reviewed. IMPRESSION AND PLAN: 1. Congestive heart failure and fluid and volume overload. 2. Anemia. 3. Thrombocytopenia. 4. End-stage renal disease, hemodialysis dependent. 5. Transaminitis. 6. Hypovitaminosis D. 7. Severe noncompliance. 8. Questionable possible pancreatitis. 9. Narcotic seeking behavior. 10. Constipation. 11. Hyperlipidemia. 12. Hypertriglyceridemia. 13. History of Cony esophagitis. 14. Secondary hyperparathyroidism. 15. Advanced human immunodeficiency virus and acquired immune deficiency syndrome. 16. History of insomnia. 17. History of coronary artery disease and angioplasty. 1. Shortness of breath and status post rapid response secondary to shortness of breath. 2. Normocytic anemia with thrombocytopenia and granulocytosis. 3. End-stage renal disease, hemodialysis dependent. 4. Transaminitis. 5. Hypertriglyceridemia. 6. Elevated amylase and lipase, etiology undetermined. 7. Hypovitaminosis D. 8. Hyperprocalcitonemia. 9. Increasing bibasilar atelectasis and bilateral pleural effusion. 10. Bilateral upper lobe opacity versus pneumonia. 11. Cardiomegaly. 12. Moderate pericardial effusion. 13. Mediastinal lymphadenopathy. 14. Hiatal hernia. 15. 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 16. Cholecystectomy. 17. Hepatic and perisplenic ascites. 18. Status post flash pulmonary edema with symptoms of shortness of breath. 19. HIV acquired immune deficiency syndrome with severe noncompliance with HIV therapy. 20. History of noncompliance. 21. Narcotic seeking behavior. 22. Chronic abdominal pain and musculoskeletal pain. 23. Dilated cardiomyopathy with left ventricular ejection fraction of 36%. 24. Pulmonary arterial hypertension with elevated right ventricular systolic pressure of 57 mmHg. 25. Moderate to severely impaired left ventricular systolic function with global left ventricular hypokinesis. 26. Grade 2 pseudonormal filling dynamics. 27. Borderline dilated left and right atrium. 28. Moderately thickened aortic valve. 29. Moderately thickened mitral valve with moderate mitral regurgitation. 30. Moderate tricuspid regurgitation with moderate pulmonary arterial hypertension and right ventricular systolic pressure of 57 mmHg. 31. Questionable pancreatitis. 32. Possible mood disorder. 1. Shortness of breath, etiology undetermined. 2. Status post rapid response secondary to shortness of breath. 3. History of narcotic dependent pain syndrome and narcotic seeking behavior. 4. Tachycardia. 5. Leukopenia. 6. Human immunodeficiency virus infection, acquired immune deficiency syndrome. 7. History of severe noncompliance and poor compliance. 8. Anemia, thrombocytopenia and pancytopenia. 9. Hypoxemia. 10. End-stage renal disease, hemodialysis dependent via the left upper extremity arteriovenous fistula. 11. Questionable systolic congestive heart failure with elevated BNP. 12. Transaminitis. 13. Elevated lipase, etiology undetermined. 14. History of hypothyroidism. 15. Worsening pulmonary venous congestion and right lower lobe consolidation. 16. Cardiomegaly. 17. Possible pneumonia. 18. Right lower lobe consolidation, questionable healthcare-associated pneumonia and consolidation. 19. Narcotic seeking pain syndrome. 20. Normocytic anemia and thrombocytopenia. 21. Nonspecific ST-T wave abnormalities. 22. Questionable gastroparesis. 23. Insomnia. 24. Questionable depression. 25. History of opioid addiction. 26. Possible mood disorder secondary to above. 27. Major depressive disorder. PLAN AT THIS TIME: The patient is to be transfused PRBC today on dialysis. CURRENT CONSULTATION: Cardiology, Gastroenterology, Infectious Disease, Nephrology, Pulmonary. CURRENT MEDICATIONS: Atarax 25 mg b.i.d. p.r.n., Bactroban cream to the affected area, Benadryl 25 IV every 4 hours, Colace 100 three times a day, Prezista 800 mg daily, Tivicay 50 mg daily, Ecotrin 81 mg daily, folic acid 1 mg daily, Klonopin 0.5 mg at bedtime, Lipitor 20 mg daily, Lopressor 50 mg twice a day, Lovaza 1 gm twice a day, meropenem 500 IV daily, MiraLax 17 g twice a day, morphine 0.5 mg IV every 8 hours p.r.n. Mycelex Tejal 10 mg five times a day, Norvir 100 mg daily, PhosLo 667 mg with meals, Plavix 75 mg daily, Protonix 40 mg every 12 hours, Reglan 5 mg every 6 hours, Remeron 30 mg at bedtime, Synthroid 25 mcg daily, multivitamin 1 tablet daily, Tylenol 650 every 4 p.r.n., Xopenex nebulizer 0.63 mg every 6 hours, Zofran 4 mg IV every 4 hours p.r.n. Chest PT ordered. After the patient will complete the dialysis today, the patient will be given transfusion of two units and if the patient is stable, the patient will be considered for transfer to TCU. Dictated and electronically signed, not read. Ranjith Rubalcava MD MTDHarsh
[2017-08-21] MEDS ORDERED: Morphine 4 mg/ml ISec IVP STA (17:04)
--- NOTE | 2017-08-21 18:58 | PN ---
DATE: 08/21/2017 SUBJECTIVE: The patient is seen in the dialysis unit. She is awake, she is alert, she is comfortable. PHYSICAL EXAMINATION: GENERAL: Middle-aged lady sitting in the dialysis unit. VITAL SIGNS: Blood pressure 164/92, heart rate 84, respiratory rate 20, temperature 98. HEENT: Normocephalic, atraumatic. NECK: Supple, no JVD. LUNGS: Bilateral equal air entry, bilateral equal expansion, crackles at the right base. CARDIAC: S1 and S2, regular rate and rhythm, no murmur, no rub. ABDOMEN: Distended, soft, nontender, bowel sounds present. EXTREMITIES: No lower extremity edema. LABORATORY DATA: Hemoglobin 8.1. Sodium 143, potassium 3.4, chloride 101, CO2 of 30. BUN 45, creatinine 8.9. Glucose 148. Calcium 8.9, phosphorus 3.3 magnesium 2. AST 68, ALT 57. ASSESSMENT: 1. Severe anemia, agree with transfusion. 2. Hypokalemia, change bath to K4. 3. Hypertension. 4. Coronary artery disease. 5. Chronic pain. 6. End-stage renal disease. PLAN: 1. Stable dialysis, to receive 2 units of blood. 2. Dialyze with potassium 4 bath. 3. Continue antibiotics for pneumonia. 4. Physical therapy. 5. No objection to transfer to [facility]. Meryl Shukla MD
--- NOTE | 2017-08-21 23:09 | PN ---
DATE: SUBJECTIVE: Patient is in bed, in no acute distress, nontoxic. OBJECTIVE: VITAL SIGNS: Temperature is 98, blood pressure is 164/98, respiratory rate of 18. HEENT: Unremarkable. NECK: Supple. LUNGS: Have decreased breath sounds. HEART: Normal S1 and S2. ABDOMEN: Soft, nontender. LABORATORY DATA: Reveals the patient's white count is 6.3, hemoglobin of 8, platelets of 104. Creatinine is 8.9. Microbiology reveals the blood cultures are negative. Review of orders reveals the patient to be on meropenem. ASSESSMENT AND PLAN: This is a 57-year-old female with end-stage renal disease, on hemodialysis; chronic renal failure; coronary artery disease; urinary tract infection; hypertension; esophageal ulcers; erosive gastritis; pulmonary edema; history of acquired immune deficiency syndrome, with pulmonary edema and pancreatitis. The patient had a CAT scan of the chest from 08/19/2017, which reveals medium sized lymph nodes, mediastinal lymph nodes, bilateral effusions, atelectasis. We will discontinue the meropenem. No further need for antibiotics. Etiology of the pancreatitis is not clear. Meliton Rodriguez MD
[2017-08-22] MEDS: Levalbuterol 0.63 MG/3 ML Inhal Soln UD IH SCH ×3 (02:04→13:11)
[2017-08-22] MEDS: DiphenhydrAMINE 50 mg/ml Inj IVP PRN ×2 (04:33→11:15)
[2017-08-22 07:13] LABS: BASO # 0.02 K/mm3 (0.0-2.0); BASO % 0.3 % (0.0-3.0); EOS # 0.1 (0.0-0.7); EOS % 1.7 % (1.5-5.0); GRAN # 4.19 (1.4-6.5); GRAN % 69.2 % (50.0-68.0); LYMPH # 1.2 (1.2-3.4); LYMPH % 19.7 % (22.0-35.0); MEAN CORPUSCULAR HEMOGLOBIN 30.8 pg (25.0-35.0); MEAN CORPUSCULAR HGB CONC 32.1 g/dl (31.0-37.0); MEAN PLATELET VOLUME 10.6 fl (7.0-11.0); MONO # 0.6 (0.1-0.6); MONO % 9.1 % (1.0-6.0); RBC 3.44 10^6/uL (3.5-6.1); RED CELL DISTRIBUTION WIDTH 18.5 % (11.5-14.5); WHITE BLOOD COUNT 6.1 10^3/ul (4.5-11.0)
[2017-08-22 07:26] LABS: HEMOGLOBIN 10.6 g/dL (12.0-16.0); MEAN CELL VOLUME 95.9 fl (80.0-105.0)
[2017-08-22 09:35] VITALS: BP 148/94; PULSE 82; RESP 18; TEMP 98; O2SAT 100
[2017-08-22] MEDS: DARUNAVIR 800 MG PO SCH (11:04)
[2017-08-22] MEDS: POLYETHYLENE GLYCOL 3350 17 GM/Dose PACKET PO SCH (11:06)
[2017-08-22] MEDS: Levothyroxine 25 MCG TAB PO SCH (11:16)
[2017-08-22] MEDS: Pantoprazole 40 mg EC Tab PO SCH (11:17)
[2017-08-22] MEDS: Omega-3-Acid Ethyl Esters 1 GM Cap PO SCH (11:18)
[2017-08-22] MEDS: Multivitamin Therapeutic Tab PO SCH (11:19)
[2017-08-22] MEDS ORDERED: Lidocaine 5% Patch TD SCH ×2 (11:45→12:29)
[2017-08-22] MEDS ORDERED: Acetylcysteine 20% Inhal Soln (4ml) IH SCH (14:00)
--- NOTE | 2017-08-22 14:37 | CP.PCM.DIS ---
<Phan Hoffmann - Last Filed: 08/22/17 14:33> Provider - Provider Date of Admission: 08/18/17 15:51 Attending physician: Ranjith Rubalcava MD Primary care physician: Ranjith Rubalcava MD Consults: Cardio: Dr Tran GI: Dr. Snider ID: Dr. Rodriguez Nephro: Dr. Shukla Palliative: Dr. Hou Psych: Dr. Cavazos Pulm: Dr. Simon Time Spent in preparation of Discharge (in minutes): 45 Hospital Course - Lab Results Lab Results: Micro Results 08/18/17 16:50 Blood Blood Culture - Preliminary NO GROWTH AFTER 3 DAYS 08/18/17 16:10 Blood Blood Culture - Preliminary NO GROWTH AFTER 3 DAYS Most Recent Lab Values WBC 6.1 10^3/ul (4.5-11.0) 08/22/17 06:45 RBC 3.44 10^6/uL (3.5-6.1) L 08/22/17 06:45 Hgb 10.6 g/dL (12.0-16.0) L D 08/22/17 06:45 Hct 33.0 % (36.0-48.0) L 08/22/17 06:45 MCV 95.9 fl (80.0-105.0) D 08/22/17 06:45 MCH 30.8 pg (25.0-35.0) 08/22/17 06:45 MCHC 32.1 g/dl (31.0-37.0) 08/22/17 06:45 RDW 18.5 % (11.5-14.5) H 08/22/17 06:45 Plt Count 87 10^3/uL (120.0-450.0) L 08/22/17 06:45 MPV 10.6 fl (7.0-11.0) 08/22/17 06:45 Gran % 69.2 % (50.0-68.0) H 08/22/17 06:45 Lymph % (Auto) 19.7 % (22.0-35.0) L 08/22/17 06:45 Placer % (Auto) 9.1 % (1.0-6.0) H 08/22/17 06:45 Eos % (Auto) 1.7 % (1.5-5.0) 08/22/17 06:45 Baso % (Auto) 0.3 % (0.0-3.0) 08/22/17 06:45 Gran # 4.19 (1.4-6.5) 08/22/17 06:45 Lymph # (Auto) 1.2 (1.2-3.4) 08/22/17 06:45 Placer # (Auto) 0.6 (0.1-0.6) 08/22/17 06:45 Eos # (Auto) 0.1 (0.0-0.7) 08/22/17 06:45 Baso # (Auto) 0.02 K/mm3 (0.0-2.0) 08/22/17 06:45 Sodium 143 mmol/L (132-148) 08/21/17 10:20 Potassium 3.4 mmol/L (3.6-5.0) L 08/21/17 10:20 Chloride 101 mmol/L (98-107) 08/21/17 10:20 Carbon Dioxide 30 mmol/L (21-33) 08/21/17 10:20 Anion Gap 16 (10-20) 08/21/17 10:20 BUN 45 mg/dL (7-21) H 08/21/17 10:20 Creatinine 8.9 mg/dl (0.7-1.2) H* 08/21/17 10:20 Est GFR ( Amer) 6 08/21/17 10:20 Est GFR (Non-Af Amer) 5 08/21/17 10:20 Random Glucose 148 mg/dL (70-110) H 08/21/17 10:20 Calcium 8.9 mg/dL (8.4-10.5) 08/21/17 10:20 Phosphorus 3.3 mg/dL (2.5-4.5) 08/21/17 10:20 Magnesium 2.0 mg/dL (1.7-2.2) 08/21/17 10:20 Iron 66 ug/dL (45-180) 08/19/17 10:20 TIBC 179 ug/dL (265-497) L 08/19/17 10:20 % Saturation 37 % (20-55) 08/19/17 10:20 Erythropoietin 164.1 mIU/mL (2.6-18.5) H 08/19/17 10:20 Ferritin 3980.0 ng/mL 08/19/17 10:20 Total Bilirubin 0.4 mg/dL (0.2-1.3) 08/21/17 10:20 Direct Bilirubin 0.5 mg/dL (0.0-0.4) H 08/19/17 10:20 AST 68 U/L (14-36) H 08/21/17 10:20 ALT 57 U/L (7-56) H 08/21/17 10:20 Alkaline Phosphatase 107 U/L (38-126) 08/21/17 10:20 Total Protein 7.4 g/dL (5.8-8.3) 08/21/17 10:20 Albumin 3.6 g/dL (3.0-4.8) 08/21/17 10:20 Globulin 3.8 gm/dL 08/21/17 10:20 Albumin/Globulin Ratio 0.9 (1.1-1.8) L 08/21/17 10:20 Triglycerides 220 mg/dL (35-160) H 08/19/17 10:20 Cholesterol 127 mg/dL (130-200) L 08/19/17 10:20 LDL Cholesterol Direct 44 mg/dL (0-129) 08/19/17 10:20 HDL Cholesterol 22 mg/dL (29-60) L 08/19/17 10:20 Amylase 271 U/L (35-125) H 08/19/17 10:20 Lipase 806 U/L (23-300) H 08/21/17 06:20 Vitamin B12 854 pg/mL (239-931) 08/19/17 10:20 25-OH Vitamin D Total 16.3 NG/ML (30.0-100.0) L 08/19/17 10:20 Folate > 20.0 ng/mL 08/19/17 10:20 Procalcitonin 18.67 NG/ML (0.19-0.49) H 08/19/17 10:20 Free T4 1.01 ng/dL (0.78-2.19) 08/19/17 10:20 Thyroxine (T4) 5.1 ug/dL (5.5-11.0) L 08/19/17 10:20 TSH 3rd Generation 0.80 mIU/mL (0.46-4.68) 08/19/17 10:20 Blood Type A POSITIVE 08/20/17 08:40 Antibody Screen Negative 08/20/17 08:40 Crossmatch See Detail 08/20/17 08:40 BBK History Checked Patient has bt 08/20/17 08:40 - Hospital Course Hospital Course: HPI Day of Admissions This is a 57 year old female with history of HIV, HTN, Coronary artery disease on Plavix, pancreatitis, ESRD on HD, and chronic systolic heart failure who appears to have had flash pulmonary edema. Patient was initially admitted for pancreatitis, which was treated and patient was sent to the [facility] for physical therapy for deconditioning and unsteady gait. Yesterday, patient felt short of breath, which was relieved with oxygen. CXR was negative for infiltrate or effusion. This morning, patient began having chest pain, shortness of breath and vomiting. Rapid response was called. CXR done today shows mild venous congestion and new infiltrate right lower lobe. Dialysis was done emergently to remove fluid. Now, patient is feeling better but continues to complain of chest pain. She denies shortness of breath. In the ER, lipase was found to be over 1600. Hospital Course: Throughout her stay in the hospital, Ms. Perea was tapered off Morphine. Her pancreatitis resolved. Patient's shortness of breath improved. Patient did start complaining of some congestion, for which mucomyst wsas prescribed. Patient was stable for deconditioning at TCU on day of discharge. Assessment and Plan Day of Discharge: 57 year old female with history of HIV, HTN, CAD on Plavix, pancreatitis, ESRD on HD and chronic systolic heart failure admitted for shortness of breath likely secondary to flash pulmonary edema 1. Shortness of breath likely 2/2 flash pulmonary edema VS pneumonia - Patient is s/p emergent dialysis and is presently scheduled to receive dialysis per her regular schedule - Scheduled to receive 2 unit PRBC during dialysis today - Chest XR showed possibility of infiltrate in right lower lobe - Continue meropenem per ID recommendations - Pulmonology consulted - Dr. Simon - Nebulizers as ordered - OOB to chair - HOB > 35' - Chest PT - PT notes reviewed 2. Hx of Pancreatitis - Per GI, unlikely to have acute pancreatitis at this time - Advanced diet as tolerated - GI consulted - Dr. Snider 3. CAD - ASA, Lipitor, Lopressor - Dr. Tran on consult 4. HTN - Lopressor 5. HLD - Lipitor 6. HIV - Continue Ritonavir, Dulutegravir, Darunavir - Dr. Calvert on consult 7. ESRD on HD - Continue with hemodialysis as indicated per nephrology - Nephrology consulted - Dr. Shukla 8. Hypothyroidism - Continue synthroid 9. History of Major Depressive - Continue with Klonopin, Remeron 10. GI/DVT prophylaxis -Protonix/SCD's Discharge Exam - Head Exam Head Exam: ATRAUMATIC, NORMOCEPHALIC - Eye Exam Eye Exam: EOMI, Normal appearance, PERRL Pupil Exam: NORMAL ACCOMODATION, PERRL - Respiratory Exam Respiratory Exam: Wheezes, NORMAL BREATHING PATTERN - Cardiovascular Exam Cardiovascular Exam: REGULAR RHYTHM - GI/Abdominal Exam GI & Abdominal Exam: Normal Bowel Sounds - Neurological Exam Neurological exam: Alert, CN II-XII Intact, Normal Gait, Oriented x3, Reflexes Normal - Psychiatric Exam Psychiatric exam: Normal Affect, Normal Mood - Skin Skin Exam: Dry, Intact, Normal Color, Warm Discharge Plan - Discharge Medications Prescriptions: Acetylcysteine 20% [Mucomyst 20%] 4 ml IH [id number] #32 vial - Follow Up Plan Condition: STABLE Disposition: TRANSF TO SNF Instructions: Kidney Failure, HIV/AIDS, Depression, Heart Failure, Adult, Hemodialysis, High Blood Pressure (DC), Pneumonia, Adult (DC), Pancreatitis (DC) , Renal Failure Diet (DC), Acute Abdominal Pain (DC), Acute Abdominal Pain (GEN) Additional Instructions: DISCHARGE TO TCU UNDER SERVICE Referrals: Ranjith Rubalcava MD [Primary Care Provider] - 1 Week (DISCHARGE TO TCU UNDER SERVICE ) <Ranjith Rubalcava - Last Filed: 08/25/17 17:09> Provider - Provider Date of Admission: 08/18/17 15:51 Attending physician: Ranjith Rubalcava MD Primary care physician: Ranjith Rubalcava MD Hospital Course - Lab Results Lab Results: Micro Results 08/18/17 16:50 Blood Blood Culture - Final NO GROWTH AFTER 5 DAYS 08/18/17 16:10 Blood Blood Culture - Final NO GROWTH AFTER 5 DAYS Most Recent Lab Values WBC 6.1 10^3/ul (4.5-11.0) 08/22/17 06:45 RBC 3.44 10^6/uL (3.5-6.1) L 08/22/17 06:45 Hgb 10.6 g/dL (12.0-16.0) L D 08/22/17 06:45 Hct 33.0 % (36.0-48.0) L 08/22/17 06:45 MCV 95.9 fl (80.0-105.0) D 08/22/17 06:45 MCH 30.8 pg (25.0-35.0) 08/22/17 06:45 MCHC 32.1 g/dl (31.0-37.0) 08/22/17 06:45 RDW 18.5 % (11.5-14.5) H 08/22/17 06:45 Plt Count 87 10^3/uL (120.0-450.0) L 08/22/17 06:45 MPV 10.6 fl (7.0-11.0) 08/22/17 06:45 Gran % 69.2 % (50.0-68.0) H 08/22/17 06:45 Lymph % (Auto) 19.7 % (22.0-35.0) L 08/22/17 06:45 Placer % (Auto) 9.1 % (1.0-6.0) H 08/22/17 06:45 Eos % (Auto) 1.7 % (1.5-5.0) 08/22/17 06:45 Baso % (Auto) 0.3 % (0.0-3.0) 08/22/17 06:45 Gran # 4.19 (1.4-6.5) 08/22/17 06:45 Lymph # (Auto) 1.2 (1.2-3.4) 08/22/17 06:45 Placer # (Auto) 0.6 (0.1-0.6) 08/22/17 06:45 Eos # (Auto) 0.1 (0.0-0.7) 08/22/17 06:45 Baso # (Auto) 0.02 K/mm3 (0.0-2.0) 08/22/17 06:45 Sodium 143 mmol/L (132-148) 08/21/17 10:20 Potassium 3.4 mmol/L (3.6-5.0) L 08/21/17 10:20 Chloride 101 mmol/L (98-107) 08/21/17 10:20 Carbon Dioxide 30 mmol/L (21-33) 08/21/17 10:20 Anion Gap 16 (10-20) 08/21/17 10:20 BUN 45 mg/dL (7-21) H 08/21/17 10:20 Creatinine 8.9 mg/dl (0.7-1.2) H* 08/21/17 10:20 Est GFR ( Amer) 6 08/21/17 10:20 Est GFR (Non-Af Amer) 5 08/21/17 10:20 Random Glucose 148 mg/dL (70-110) H 08/21/17 10:20 Calcium 8.9 mg/dL (8.4-10.5) 08/21/17 10:20 Phosphorus 3.3 mg/dL (2.5-4.5) 08/21/17 10:20 Magnesium 2.0 mg/dL (1.7-2.2) 08/21/17 10:20 Iron 66 ug/dL (45-180) 08/19/17 10:20 TIBC 179 ug/dL (265-497) L 08/19/17 10:20 % Saturation 37 % (20-55) 08/19/17 10:20 Erythropoietin 164.1 mIU/mL (2.6-18.5) H 08/19/17 10:20 Ferritin 3980.0 ng/mL 08/19/17 10:20 Total Bilirubin 0.4 mg/dL (0.2-1.3) 08/21/17 10:20 Direct Bilirubin 0.5 mg/dL (0.0-0.4) H 08/19/17 10:20 AST 68 U/L (14-36) H 08/21/17 10:20 ALT 57 U/L (7-56) H 08/21/17 10:20 Alkaline Phosphatase 107 U/L (38-126) 08/21/17 10:20 Total Protein 7.4 g/dL (5.8-8.3) 08/21/17 10:20 Albumin 3.6 g/dL (3.0-4.8) 08/21/17 10:20 Globulin 3.8 gm/dL 08/21/17 10:20 Albumin/Globulin Ratio 0.9 (1.1-1.8) L 08/21/17 10:20 Triglycerides 220 mg/dL (35-160) H 08/19/17 10:20 Cholesterol 127 mg/dL (130-200) L 08/19/17 10:20 LDL Cholesterol Direct 44 mg/dL (0-129) 08/19/17 10:20 HDL Cholesterol 22 mg/dL (29-60) L 08/19/17 10:20 Amylase 271 U/L (35-125) H 08/19/17 10:20 Serum Amylase 263 (h) 08/19/17 10:20 Amylase Isoenzymes 08/19/17 10:20 Lipase 806 U/L (23-300) H 08/21/17 06:20 Vitamin B12 854 pg/mL (239-931) 08/19/17 10:20 25-OH Vitamin D Total 16.3 NG/ML (30.0-100.0) L 08/19/17 10:20 Folate > 20.0 ng/mL 08/19/17 10:20 Procalcitonin 18.67 NG/ML (0.19-0.49) H 08/19/17 10:20 Free T4 1.01 ng/dL (0.78-2.19) 08/19/17 10:20 Thyroxine (T4) 5.1 ug/dL (5.5-11.0) L 08/19/17 10:20 TSH 3rd Generation 0.80 mIU/mL (0.46-4.68) 08/19/17 10:20 Blood Type A POSITIVE 08/20/17 08:40 Antibody Screen Negative 08/20/17 08:40 Crossmatch See Detail 08/20/17 08:40 BBK History Checked Patient has bt 08/20/17 08:40 Attending/Attestation - Attestation I have personally seen and examined this patient.: Yes I have fully participated in the care of the patient.: Yes I have reviewed all pertinent clinical information, including history, physical exam and plan: Yes Notes (Text): Please see/read my dictated notes.
--- NOTE | 2017-08-22 15:12 | PN ---
DATE: 08/22/2017 SUBJECTIVE: The patient is lying in bed, comfortable. She denies any abdominal pain, nausea, or vomiting. Her hemoglobin is up to 10.6 this morning after blood transfusion. She is tolerating solid foods. PHYSICAL EXAMINATION VITAL SIGNS: Reveal temperature of 98, blood pressure 148/94, heart rate of 82. HEENT: Reveals sclerae to be white. Conjunctivae pink. NECK: Supple. CHEST: Reveals lungs to be clear. HEART: Reveals regular rate and rhythm. ABDOMEN: Soft, nontender. EXTREMITIES: Show no edema. LABORATORY DATA: Reveals hemoglobin 10.6. No other laboratory data are available. IMPRESSION: 1. Chronic abdominal pain. 2. Chronic anemia with thrombocytopenia. 3. End-stage renal disease. 4. Human immunodeficiency virus positivity. 5. Elevated amylase and lipase, improving. RECOMMENDATIONS: Continue supportive care. She is stable from GI standpoint. Paul Snider MD
--- NOTE | 2017-08-22 15:54 | PN ---
DATE: 08/22/2017 CARDIOLOGY FOLLOWUP SUBJECTIVE: The patient is without symptoms, sitting in a chair and ambulating on the floor. PHYSICAL EXAMINATION VITAL SIGNS: Blood pressure is 148/94, heart rate is in the 80s. NECK: Negative JVD. LUNGS: Without rales. HEART: Reveals S1 and S2. EXTREMITIES: Without edema. LABORATORY DATA: Hemoglobin is 10.6. BUN and creatinine are unchanged. IMPRESSION: 1. End-stage renal disease. 2. Resolution of chest pain. 3. Coronary artery disease. 4. History of pancreatitis. 5. History of human immunodeficiency virus in the past. PLAN: Given these findings, the patient has been transferred to TCU today for physical therapy. The patient is hemodynamically stable. Derrick Tran MD
--- NOTE | 2017-08-23 10:28 | DS ---
FINAL PROGRESS NOTE AND DISCHARGE SUMMARY LOCATION: The patient was seen out of bed to chair in room 568, bed 1. HISTORY OF PRESENT ILLNESS: The patient is viewing videos on the cell phone. The patient is alert, awake, oriented x3. The patient is not in any distress at this time, and patient does not offer any specific complaint except for muscle aches and ribcage pain and muscle aches of the flanks and trunk and rib cage. The patient denies any abdominal pain. Denies nausea, vomiting, diarrhea or constipation. Denies hemoptysis, hematemesis, melena. Denies any shortness of breath. REVIEW OF SYSTEMS: Thirteen system review was done, pertinent positive and negative dictated above. PHYSICAL EXAMINATION: GENERAL: The patient is seen sitting up in the chair. VITAL SIGNS: T-max 99.2, heart rate 86, blood pressure 164/92, respirations 20, O2 sat 99%. HEENT: Head examination, normocephalic, atraumatic. HEENT examination shows pinkish pale conjunctivae. Anicteric sclerae. No oropharyngeal lesion. Positive frontal scalp alopecia noted. No neck rigidity. CHEST: Kyphosis. LUNGS: Improved air entry of the left side of the lung. Positive rhonchi and some crackles noted on the right side with questionable decreased breath sound at the left base. CARDIOVASCULAR: S1 and S2, regular rhythm. Positive systolic murmur, left sternal border, right second intercostal space, left second intercostal space. ABDOMEN: Soft. Positive bowel sounds, not protuberant. GENITALIA: Female. RECTAL: Deferred. EXTREMITIES: Positive left upper extremity AV fistula, positive thrill. Lower extremity examination shows noted pitting edema. No calf tenderness. No Homans' sign. NEUROLOGIC: The patient is alert, awake, oriented x3. Cranial nerves II through XII limited. Gait examination is not tested. VASCULAR: Palpable pulses. MUSCULOSKELETAL: As per the . Repeat CBC from today post dialysis shows WBC 6.1, hemoglobin and hematocrit 10.6 and 33, platelet 87,000. FINAL IMPRESSION, PLAN AND DISCHARGE DIAGNOSES: 1. Acute exacerbation of systolic congestive heart failure with pulmonary vascular congestion and volume overload with symptoms of shortness of breath. 2. Normocytic anemia of chronic kidney disease. 3 Status post packed red blood cell transfusion x2. 4 Low grade fever. 5. Thrombocytopenia. 6. Advanced human immunodeficiency virus, acquired immunodeficiency syndrome. 7. History of poor compliance with antiretroviral therapy and history of poor compliance with most of the medications. 8. Frontal scalp alopecia. 9. End-stage renal disease, hemodialysis dependent, 3 times a week, via the left upper extremity arteriovenous fistula. 10. Deconditioning. 11. Gait dysfunction. 12. Diffuse myalgia. 13. Mood disorder. 14. Chronic constipation. 15. History of coronary artery disease with multiple stent placement. 16. Dyslipidemia. 17. Hypertriglyceridemia. 18. History of cony esophagitis and oral thrush. 19. Secondary hyperparathyroidism. 20. Gastroparesis. 21. Hypothyroidism. 22. History of narcotic seeking behavior. 23. Nonspecific pain syndrome. 24. Questionable and possible hyperesthesia. 1. Congestive heart failure and fluid and volume overload. 2. Anemia. 3. Thrombocytopenia. 4. End-stage renal disease, hemodialysis dependent. 5. Transaminitis. 6. Hypovitaminosis D. 7. Severe noncompliance. 8. Questionable possible pancreatitis. 9. Narcotic seeking behavior. 10. Constipation. 11. Hyperlipidemia. 12. Hypertriglyceridemia. 13. History of Cony esophagitis. 14. Secondary hyperparathyroidism. 15. Advanced human immunodeficiency virus and acquired immune deficiency syndrome. 16. History of insomnia. 17. History of coronary artery disease and angioplasty. 1. Shortness of breath and status post rapid response secondary to shortness of breath. 2. Normocytic anemia with thrombocytopenia and granulocytosis. 3. End-stage renal disease, hemodialysis dependent. 4. Transaminitis. 5. Hypertriglyceridemia. 6. Elevated amylase and lipase, etiology undetermined. 7. Hypovitaminosis D. 8. Hyperprocalcitonemia. 9. Increasing bibasilar atelectasis and bilateral pleural effusion. 10. Bilateral upper lobe opacity versus pneumonia. 11. Cardiomegaly. 12. Moderate pericardial effusion. 13. Mediastinal lymphadenopathy. 14. Hiatal hernia. 15. 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 16. Cholecystectomy. 17. Hepatic and perisplenic ascites. 18. Status post flash pulmonary edema with symptoms of shortness of breath. 19. HIV acquired immune deficiency syndrome with severe noncompliance with HIV therapy. 20. History of noncompliance. 21. Narcotic seeking behavior. 22. Chronic abdominal pain and musculoskeletal pain. 23. Dilated cardiomyopathy with left ventricular ejection fraction of 36%. 24. Pulmonary arterial hypertension with elevated right ventricular systolic pressure of 57 mmHg. 25. Moderate to severely impaired left ventricular systolic function with global left ventricular hypokinesis. 26. Grade 2 pseudonormal filling dynamics. 27. Borderline dilated left and right atrium. 28. Moderately thickened aortic valve. 29. Moderately thickened mitral valve with moderate mitral regurgitation. 30. Moderate tricuspid regurgitation with moderate pulmonary arterial hypertension and right ventricular systolic pressure of 57 mmHg. 31. Questionable pancreatitis. 32. Possible mood disorder. 1. Shortness of breath, etiology undetermined. 2. Status post rapid response secondary to shortness of breath. 3. History of narcotic dependent pain syndrome and narcotic seeking behavior. 4. Tachycardia. 5. Leukopenia. 6. Human immunodeficiency virus infection, acquired immune deficiency syndrome. 7. History of severe noncompliance and poor compliance. 8. Anemia, thrombocytopenia and pancytopenia. 9. Hypoxemia. 10. End-stage renal disease, hemodialysis dependent via the left upper extremity arteriovenous fistula. 11. Questionable systolic congestive heart failure with elevated BNP. 12. Transaminitis. 13. Elevated lipase, etiology undetermined. 14. History of hypothyroidism. 15. Worsening pulmonary venous congestion and right lower lobe consolidation. 16. Cardiomegaly. 17. Possible pneumonia. 18. Right lower lobe consolidation, questionable healthcare-associated pneumonia and consolidation. 19. Narcotic seeking pain syndrome. 20. Normocytic anemia and thrombocytopenia. 21. Nonspecific ST-T wave abnormalities. 22. Questionable gastroparesis. 23. Insomnia. 24. Questionable depression. 25. History of opioid addiction. 26. Possible mood disorder secondary to above. 27. Major depressive disorder. PLAN: At this time, the patient will be discharged to transitional care unit under Dr. Rubalcava's service. DISCHARGE MEDICATIONS: The patient's discharge medications will be Lidoderm 5% patch to the affected area of pain on the ribcage in 24 hours, Atarax 25 mg b.i.d. p.r.n., Bactroban cream to the affected area as needed 3 times a day, Benadryl 25 mg IV every 4 p.r.n. The patient is on Bentyl 10 mg p.o. every 8 hours p.r.n. The patient is on Colace 100 mg 3 times a day. The patient is on Prezista 800 mg daily. The patient is on Tivicay 50 mg daily. The patient is on Ecotrin 81 mg daily, folic acid 1 mg daily, Klonopin 0.5 mg at bedtime, Lipitor 20 mg daily, Lopressor 50 mg twice a day, Lovaza 1 to 2 g twice a day, MiraLax 17 g twice a day, Mycelex troches 10 mg 5 times a day, Norvir 100 mg daily. The patient is also being discharged on Plavix, PhosLo 667 mg 3 times a day with meals. The patient is on Protonix 40 mg once or twice a day, Reglan 5 mg every 6 hours. The patient is on Remeron 30 mg at bedtime, Synthroid 25 mcg daily, multivitamin 1 tablet daily, Tylenol 650 every 6 p.r.n., Xopenex nebulizer 0.63 mg every 6 hours, Zofran 4 mg IV every 4 hours p.r.n. The patient is also ordered chest PT. The patient has also been ordered Mucomyst nebulizer 20% 4 mL every 6 hours to be mixed with Xopenex nebulizer. The patient will be discharged to transitional care unit today when bed is ready. At present, the patient is to be continued on above therapeutic intervention. The patient has been again re-counseled about strict compliance with medications, doctors followup, etc, which she acknowledged and understand. The patient was again explained about the details of her medical condition, diagnostic test results and recommendation by all the physicians involved in the care of the patient. Time spent in the entire discharge process 45 minutes. Dictated and electronically signed, not read. Ranjith Rubalcava MD MTDD
== END 2017-08-22 14:29 | DRG 291 ==
LOC: ED 15:08 → ERH 15:51 → 3RSO 18:11 → 2RSO 08-19 15:20 → 5RNO 08-20 14:39
PROVIDERS: ADMIT Internal Medicine; ATTEND Internal Medicine
PROC: 5A1D70Z Performance of Urinary Filtration, Intermittent, Less than 6 Hours Per Day (ICD-10-PCS; principal; 2017-08-19)
PROC: 30233N1 Transfusion of Nonautologous Red Blood Cells into Peripheral Vein, Percutaneous Approach (ICD-10-PCS; 2017-08-21)
DX: I13.2 Hypertensive heart and chronic kidney disease with heart failure and with stage 5 chronic kidney disease, or end stage renal disease (principal); I50.23 Acute on chronic systolic (congestive) heart failure; J18.9 Pneumonia, unspecified organism; K85.90 Acute pancreatitis without necrosis or infection, unspecified; N18.6 End stage renal disease; B20 Human immunodeficiency virus [HIV] disease; D61.818 Other pancytopenia; J98.11 Atelectasis; I31.3 Pericardial effusion (noninflammatory); K22.10 Ulcer of esophagus without bleeding; N25.81 Secondary hyperparathyroidism of renal origin; K86.1 Other chronic pancreatitis; I42.0 Dilated cardiomyopathy; E11.22 Type 2 diabetes mellitus with diabetic chronic kidney disease; I25.10 Atherosclerotic heart disease of native coronary artery without angina pectoris; E03.9 Hypothyroidism, unspecified; E78.00 Pure hypercholesterolemia, unspecified; D63.1 Anemia in chronic kidney disease; E11.43 Type 2 diabetes mellitus with diabetic autonomic (poly)neuropathy; K31.84 Gastroparesis; Z99.2 Dependence on renal dialysis; M47.814 Spondylosis without myelopathy or radiculopathy, thoracic region; E78.1 Pure hyperglyceridemia; L65.9 Nonscarring hair loss, unspecified; K59.09 Other constipation; M79.1 Myalgia; F32.9 Major depressive disorder, single episode, unspecified; I27.21 Secondary pulmonary arterial hypertension; G47.00 Insomnia, unspecified; R59.0 Localized enlarged lymph nodes; E55.9 Vitamin D deficiency, unspecified; K44.9 Diaphragmatic hernia without obstruction or gangrene; G89.29 Other chronic pain; E87.6 Hypokalemia; I08.1 Rheumatic disorders of both mitral and tricuspid valves; K29.60 Other gastritis without bleeding; R26.81 Unsteadiness on feet; Z91.19 Patient's noncompliance with other medical treatment and regimen; Z95.5 Presence of coronary angioplasty implant and graft; Z76.5 Malingerer [conscious simulation]; Z87.891 Personal history of nicotine dependence

== ENCOUNTER 2017-08-22 14:29 | Inpatient (IN) | payer OTHER ==
[2017-08-22 14:55] VITALS: BMI 21.7
[2017-08-22] MEDS: DiphenhydrAMINE 50 mg/ml Inj IVP PRN ×2 (16:09→21:28)
[2017-08-22] MEDS: Omega-3-Acid Ethyl Esters 1 GM Cap PO SCH (17:49)
[2017-08-22] MEDS: POLYETHYLENE GLYCOL 3350 17 GM/Dose PACKET PO SCH (17:50)
[2017-08-22] MEDS ORDERED: ACETYLCYSTEINE 20% IH SCH (20:00)
[2017-08-22] MEDS ORDERED: Acetylcysteine 20% Inhal Soln (4ml) IH SCH (20:00)
[2017-08-22] MEDS: Levalbuterol 0.63 MG/3 ML Inhal Soln UD IH PRN (21:45)
[2017-08-23] MEDS: DiphenhydrAMINE 50 mg/ml Inj IVP PRN ×4 (02:19→22:47)
[2017-08-23] MEDS: Levothyroxine 25 MCG TAB PO SCH (06:33)
[2017-08-23] MEDS: Pantoprazole 40 mg EC Tab PO SCH ×3 (06:33→21:07)
[2017-08-23] MEDS: Levalbuterol 0.63 MG/3 ML Inhal Soln UD IH PRN ×2 (07:24→20:33)
[2017-08-23] MEDS: DARUNAVIR 800 MG PO SCH (08:22)
[2017-08-23] MEDS: Lidocaine 5% Patch TD SCH (09:30)
[2017-08-23] MEDS: Omega-3-Acid Ethyl Esters 1 GM Cap PO SCH ×2 (09:31→18:01)
[2017-08-23] MEDS: POLYETHYLENE GLYCOL 3350 17 GM/Dose PACKET PO SCH ×2 (09:31→18:01)
[2017-08-23] MEDS: Multivitamin Therapeutic Tab PO SCH (09:33)
--- NOTE | 2017-08-24 01:24 | CON ---
DATE: 08/23/2017 REASON FOR CONSULTATION: Fatigue, shortness of breath. HISTORY OF PRESENT ILLNESS: A 57-year lady known to me from prior evaluations, recent hospitalization, outpatient dialysis. The patient was transferred from the Transitional Care Unit to the medical site because of shortness of breath. She was found to have pneumonia. She is now being treated for pneumonia. She is now transferred back to Transitional Care Unit for rehabilitation, strengthening exercises, and completion of antibiotics. PAST MEDICAL AND SURGICAL HISTORY: HIV, hypertension, ESRD, CAD, PTCA and stents, epigastric pain, history of ulcer, history of esophagitis, history of thrush. SOCIAL HISTORY: Ex-smoker, no alcohol use, no IV drug abuse. ALLERGIES: MAVIS INHIBITORS. MEDICATIONS: List reviewed. PHYSICAL EXAMINATION: GENERAL: Middle-aged lady lying in bed. VITAL SIGNS: Blood pressure 142/90, heart rate 83, respiratory rate 18, temperature 98.4. HEENT: Normocephalic, atraumatic. NECK: Supple, no JVD. LUNGS: Bilateral equal entry, bilateral equal expansion, no rales. CARDIAC: S1 and S2, regular rate and rhythm, no murmur, no rub. ABDOMEN: Obese, distended, soft, nontender, bowel sounds present. EXTREMITIES: No lower extremity edema. No new labs available right now. ASSESSMENT: 1. Pneumonia. 2. Congestive heart failure. 3. Coronary artery disease. 4. End-stage renal disease. 5. Anemia. 6. Human immunodeficiency. PLAN: 1. Continue antibiotics. 2. Dialysis today. 3. Physical therapy. 4. Renal diet. Meryl Shukla MD
[2017-08-24] MEDS: Pantoprazole 40 mg EC Tab PO SCH ×2 (05:37→21:24)
[2017-08-24] MEDS: Levothyroxine 25 MCG TAB PO SCH (05:37)
[2017-08-24] MEDS: DiphenhydrAMINE 50 mg/ml Inj IVP PRN ×5 (05:40→22:47)
[2017-08-24] MEDS: Levalbuterol 0.63 MG/3 ML Inhal Soln UD IH PRN ×2 (07:27→20:40)
[2017-08-24] MEDS: DARUNAVIR 800 MG PO SCH (08:37)
[2017-08-24] MEDS: Lidocaine 5% Patch TD SCH (10:28)
[2017-08-24] MEDS: Omega-3-Acid Ethyl Esters 1 GM Cap PO SCH ×2 (10:29→17:50)
[2017-08-24] MEDS: POLYETHYLENE GLYCOL 3350 17 GM/Dose PACKET PO SCH ×2 (10:29→17:50)
[2017-08-24] MEDS: Multivitamin Therapeutic Tab PO SCH (10:30)
--- NOTE | 2017-08-24 19:56 | PN ---
DATE: 08/24/2017 SUBJECTIVE: The patient is seen sitting up in the bed, playing on the cell phone. The patient stated that she is trying to book a spa treatment after discharge. The patient is alert and responsive. The patient does not appear to be in any distress. Overnight nurse's notes were reviewed. The patient complained of some vaginal itching to the nurse, but did not complain to me. The patient's overnight nurse's notes were reviewed. OBJECTIVE: VITAL SIGNS: T-max 99, 98.9. Pulse rate 84, 78, and 69; respirations 20 beats per minute; blood pressure 148/90, 136/84; respirations 18 to 20; O2 sat 95% to 98%. GENERAL: The patient is seen sitting up in the bed. HEENT: Head: Normocephalic, atraumatic. Positive frontal alopecia noted. Pinkish pale conjunctivae. Anicteric sclerae. No oropharyngeal lesion. NECK: No neck rigidity. CHEST: Kyphosis. LUNGS: Show positive rhonchi, but decreased on the right side, very occasional rhonchi on the left side. CARDIOVASCULAR: S1 and S2, regular rhythm. Positive systolic murmur in the left sternal border, right second intercostal space, left second intercostal space. ABDOMEN: Soft. Positive bowel sounds. Positive palpable rib cage chest wall tenderness. No costovertebral angle tenderness. No hepatosplenomegaly noted. No guarding. No rigidity. No rebound tenderness. Questionable mild epigastric tenderness. GENITALIA: Female. RECTAL: Deferred. EXTREMITIES: Show no pitting edema, no calf tenderness, no Homans sign. Positive left upper extremity AV fistula, positive thrill. MUSCULOSKELETAL: As per the body mass index. NEUROLOGIC: The patient is alert, awake, and oriented x3. Cranial nerves II through XII grossly intact. Motor strength is 5/5. The patient is able to ambulate in the room without assistance and transfer from bed to chair and recliner without assistance. DIAGNOSTICS: None. IMPRESSION AND PLAN: 1. Questionable vaginitis. 2. Deconditioning. 3. Gait dysfunction. 4. End-stage renal disease, hemodialysis dependent, 3 times week via the left upper extremity AV fistula. 5. Advanced human immunodeficiency virus, acquired immune deficiency syndrome with CD4 lymphopenia 6. Hypertension. 7. History of coronary artery disease with multiple angioplasties. 8. Chronic narcotic seeking behavior. 9. History of narcotic dependent, status post drug rehab. 10. Frontal alopecia. 11. Anemia of chronic kidney disease. 12. Status post packed red blood cell transfusion. 13. Congestive heart failure and volume overload with systolic congestive heart failure. 14. Pulmonary arterial hypertension with tricuspid regurgitation and mitral regurgitation. 15. Headache. 16. Gastritis. 17. Gastroesophageal reflux. 18. Gastroparesis. 19. Chronic narcotic-induced constipation. 20. Left upper extremity AV fistula. 21. History of hypothyroidism. 22. Hyperlipidemia. 23. Hypertriglyceridemia. 24. Secondary hyperparathyroidism. 1. Deconditioning. 2. Gait dysfunction. 3. Status post narcotic drug rehab. 4. Chronic narcotic seeking pain syndrome. 5. Narcotic seeking behavior. 6. Hypertension. 7. Frontal alopecia. 8. Poor compliance. 9. Insomnia. 10. Constipation. 11. Advanced human immunodeficiency virus and acquired immune deficiency syndrome. 12. Anxiety. 13. Hyperlipidemia. 14. Hypertriglyceridemia. 15. Cony esophagitis and oral thrush. 16. Secondary hyperparathyroidism. 17. Gastroparesis. 18 Hypothyroidism. 19. History of recurrent pneumonia, atelectasis. 20. History of systolic congestive heart failure. 22. Questionable functional quadriplegia secondary to noncompliance with physical therapy and noncompliance to be out of bed to chair. 1. Acute exacerbation of systolic congestive heart failure with pulmonary vascular congestion and volume overload with symptoms of shortness of breath. 2. Normocytic anemia of chronic kidney disease. 3 Status post packed red blood cell transfusion x2. 4 Low grade fever. 5. Thrombocytopenia. 6. Advanced human immunodeficiency virus, acquired immunodeficiency syndrome. 7. History of poor compliance with antiretroviral therapy and history of poor compliance with most of the medications. 8. Frontal scalp alopecia. 9. End-stage renal disease, hemodialysis dependent, 3 times a week, via the left upper extremity arteriovenous fistula. 10. Deconditioning. 11. Gait dysfunction. 12. Diffuse myalgia. 13. Mood disorder. 14. Chronic constipation. 15. History of coronary artery disease with multiple stent placement. 16. Dyslipidemia. 17. Hypertriglyceridemia. 18. History of cony esophagitis and oral thrush. 19. Secondary hyperparathyroidism. 20. Gastroparesis. 21. Hypothyroidism. 22. History of narcotic seeking behavior. 23. Nonspecific pain syndrome. 24. Questionable and possible hyperesthesia. 1. Congestive heart failure and fluid and volume overload. 2. Anemia. 3. Thrombocytopenia. 4. End-stage renal disease, hemodialysis dependent. 5. Transaminitis. 6. Hypovitaminosis D. 7. Severe noncompliance. 8. Questionable possible pancreatitis. 9. Narcotic seeking behavior. 10. Constipation. 11. Hyperlipidemia. 12. Hypertriglyceridemia. 13. History of Cony esophagitis. 14. Secondary hyperparathyroidism. 15. Advanced human immunodeficiency virus and acquired immune deficiency syndrome. 16. History of insomnia. 17. History of coronary artery disease and angioplasty. 1. Shortness of breath and status post rapid response secondary to shortness of breath. 2. Normocytic anemia with thrombocytopenia and granulocytosis. 3. End-stage renal disease, hemodialysis dependent. 4. Transaminitis. 5. Hypertriglyceridemia. 6. Elevated amylase and lipase, etiology undetermined. 7. Hypovitaminosis D. 8. Hyperprocalcitonemia. 9. Increasing bibasilar atelectasis and bilateral pleural effusion. 10. Bilateral upper lobe opacity versus pneumonia. 11. Cardiomegaly. 12. Moderate pericardial effusion. 13. Mediastinal lymphadenopathy. 14. Hiatal hernia. 15. 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 16. Cholecystectomy. 17. Hepatic and perisplenic ascites. 18. Status post flash pulmonary edema with symptoms of shortness of breath. 19. HIV acquired immune deficiency syndrome with severe noncompliance with HIV therapy. 20. History of noncompliance. 21. Narcotic seeking behavior. 22. Chronic abdominal pain and musculoskeletal pain. 23. Dilated cardiomyopathy with left ventricular ejection fraction of 36%. 24. Pulmonary arterial hypertension with elevated right ventricular systolic pressure of 57 mmHg. 25. Moderate to severely impaired left ventricular systolic function with global left ventricular hypokinesis. 26. Grade 2 pseudonormal filling dynamics. 27. Borderline dilated left and right atrium. 28. Moderately thickened aortic valve. 29. Moderately thickened mitral valve with moderate mitral regurgitation. 30. Moderate tricuspid regurgitation with moderate pulmonary arterial hypertension and right ventricular systolic pressure of 57 mmHg. 31. Questionable pancreatitis. 32. Possible mood disorder. 1. Shortness of breath, etiology undetermined. 2. Status post rapid response secondary to shortness of breath. 3. History of narcotic dependent pain syndrome and narcotic seeking behavior. 4. Tachycardia. 5. Leukopenia. 6. Human immunodeficiency virus infection, acquired immune deficiency syndrome. 7. History of severe noncompliance and poor compliance. 8. Anemia, thrombocytopenia and pancytopenia. 9. Hypoxemia. 10. End-stage renal disease, hemodialysis dependent via the left upper extremity arteriovenous fistula. 11. Questionable systolic congestive heart failure with elevated BNP. 12. Transaminitis. 13. Elevated lipase, etiology undetermined. 14. History of hypothyroidism. 15. Worsening pulmonary venous congestion and right lower lobe consolidation. 16. Cardiomegaly. 17. Possible pneumonia. 18. Right lower lobe consolidation, questionable healthcare-associated pneumonia and consolidation. 19. Narcotic seeking pain syndrome. 20. Normocytic anemia and thrombocytopenia. 21. Nonspecific ST-T wave abnormalities. 22. Questionable gastroparesis. 23. Insomnia. 24. Questionable depression. 25. History of opioid addiction. 26. Possible mood disorder secondary to above. 27. Major depressive disorder. PLAN: At this time, the patient will be ordered a dose of Diflucan 150 mg. The patient will be continued on all the medications as per the MAR. The patient will be ordered lab data on dialysis. The patient will be continued on hemodialysis 3 times a week. The patient will be followed by Nephrology and Infectious Disease. The patient will be continued on antiretroviral therapy. The patient will continue to stay on TCU with physical therapy, occupational therapy, ambulation therapy, gait training. The patient has been encouraged to be out of bed to chair. Dictated and electronically signed, not read. Ranjith Rubalcava MD MTDD
[2017-08-25] MEDS: DiphenhydrAMINE 50 mg/ml Inj IVP PRN ×5 (03:26→20:18)
--- NOTE | 2017-08-25 05:09 | CON ---
DATE: 08/24/2017 LOCATION: The patient is in bed and patient is seen in room 320 in consultation. CHIEF COMPLAINT: Weakness times several days. HISTORY OF PRESENT ILLNESS: This is a 57-year-old female who is in acute care who has past medical history significant for positive HIV, noncompliant with medications. Last CD4 count was 163 with a chronic renal failure on hemodialysis, coronary artery disease, urinary tract infections, esophageal ulcers, erosive gastritis and hypertension with the history of cholecystectomy and recent hospitalization now. Patient also had a left AV shunt placement and was ALLERGIC TO MAVIS INHIBITORS. Currently, the patient is on darunavir, dolutegravir and Norvir, admitted to Transitional Care and the patient has improved, but she is still complaining of weakness. No fevers, no chills, no nausea, no vomiting at this point. REVIEW OF SYSTEMS: Reveals 12-point review of system. PAST MEDICAL HISTORY: Significant for positive HIV and AIDS, chronic renal failure on hemodialysis, hypertension, coronary artery disease, urinary tract infection, esophageal ulcers, erosive gastritis. PAST SURGICAL HISTORY: Significant for history of cholecystectomy and AV shunt. ALLERGIES: THE PATIENT IS ALLERGIC TO MAVIS INHIBITORS. MEDICATIONS: Reviewed. PHYSICAL EXAMINATION: VITAL SIGNS: Temperature is 97, blood pressure is 112/70, respiratory rate of 18, heart rate of 72. HEENT: Unremarkable. NECK: Supple. LUNGS: Have decreased breath sounds. HEART: Normal S1 and S2. ABDOMEN: Soft, nontender. LABORATORY EXAMINATION: Reveals a white count of 6.1, hemoglobin of 10 and platelets of 87. Chemistries are noted and cultures also reviewed. Blood cultures are negative. ASSESSMENT AND PLAN: This is a 57-year-old female seen earlier today in Transitional Care, room 320 with end-stage renal disease on hemodialysis, coronary artery disease, acquired immune deficiency syndrome with healthcare-associated pneumonia and questionable pancreatitis, has been treated with meropenem. Case is discussed with patient's daughters regarding compliance issues with the human immunodeficiency virus medications and at this time Transitional Care, patient is getting physical therapy and currently off of the meropenem and no further antibiotics at this point. Continue her on human immunodeficiency virus medications and we will follow closely with you. Meliton Rodriguez MD
[2017-08-25] MEDS: Pantoprazole 40 mg EC Tab PO SCH ×2 (05:37→21:10)
[2017-08-25] MEDS: Levothyroxine 25 MCG TAB PO SCH (05:37)
[2017-08-25] MEDS: Levalbuterol 0.63 MG/3 ML Inhal Soln UD IH PRN ×3 (07:28→20:00)
[2017-08-25] MEDS: DARUNAVIR 800 MG PO SCH (08:08)
--- NOTE | 2017-08-25 09:11 | HP ---
The patient admitted to transitional care unit. LOCATION: The patient is seen in room 320, bed 1. HISTORY OF PRESENT ILLNESS: The patient is seen lying in the bed. Overnight nurse's notes were reviewed. The patient is complaining of rib cage pain, epigastric pain, and the patient is demanding to get morphine for the above pain. I have tried to explain patient again multiple times that morphine is not the indicated medication and treatment of the patient's symptoms.. The patient was seen lying in the bed in room 320, bed 1. The patient was transferred from acute care floor and telemetry to TCU for rehab. The patient completed intravenous antibiotic therapy on acute care floor during the previous hospitalization. VITAL SIGNS: T-max is 98.7, 98.4. Patient's pulse rate is 86, 89, 92. Blood pressure of 138/74, 140/80, 128/74. Respiration 18 to 20, O2 sat is 95%, 96%, 97%. ALLERGIES: THE PATIENT'S ALLERGIES ARE PER THE [employer], MAVIS INHIBITORS. SOCIAL HISTORY: Denies smoking. Denies drug use. Questionable alcohol use. The patient also has history of narcotic seeking behavior. OCCUPATIONAL HISTORY: Disabled. FAMILY HISTORY: Not available. PAST MEDICAL AND SURGICAL HISTORY: History of hypertension, history of multivessel coronary artery disease, history of multiple angioplasty, history of narcotic seeking behavior, history of chronic narcotic seeking pain syndrome, history of recent drug rehab completed at [facility]. 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, noncompliant with antiretroviral therapy, history of end-stage renal disease, hemodialysis dependent secondary to HIV AIDS nephropathy, history of gastroesophageal reflux, history of pneumonia, history of systolic congestive heart failure and dilated ischemic cardiomyopathy, history of pulmonary arterial hypertension, history of valvular heart disease, history of mitral regurgitation, history of decreased left ventricular ejection fraction, history of gait dysfunction, history of frontal scalp alopecia, history of bo esophagitis and history of oral thrush, history of doxycycline-induced esophagitis, history of gastritis, history of poor compliance, history of hyperlipidemia, history of left upper extremity AV fistula placement, history of Tenckhoff catheter placement and removal, history of poor compliance and noncompliance, history of dyslipidemia, history of hypertriglyceridemia, history of secondary hyperparathyroidism, history of hypothyroidism, history of insomnia, history of gastroparesis secondary to constipation, history of multiple hospitalizations secondary to noncompliance with medication, history of end-stage renal disease, hemodialysis dependent three times a week via the left upper extremity AV fistula, history of deconditioning and multiple . History of mood disorder. PHYSICAL EXAMINATION: GENERAL: The patient is seen lying in the bed in room 320. The patient does not appear to be in any discomfort at this time. HEENT: Head normocephalic, atraumatic. Positive frontal alopecia noted. Pinkish pale conjunctiva noted. No jugular venous distention noted. CHEST: Kyphosis. LUNGS: Shows positive rhonchi, right more than the left. Questionable decreased breath sound at the left base. CARDIOVASCULAR: S1 and S2, regular rhythm. Positive systolic murmur, left sternal border, right second intercostal space, left second intercostal space. Positive reproducible sternal chest wall and ribcage tenderness on palpation. ABDOMEN: Positive epigastric tenderness on deep palpation. No rebound tenderness. No right and left upper and lower quadrant tenderness. No guarding. No rigidity. No costovertebral angle tenderness. GENITALIA: Female. RECTAL: Deferred. EXTREMITIES: Shows positive left upper extremity AV fistula, positive thrill. MUSCULOSKELETAL: Shows muscle mass, BMI of 23. Gait examination is not tested. VASCULAR: Palpable pulses of the lower extremity. PSYCHIATRIC: Positive for mood disorder. Negative for suicidal or homicidal ideation. Negative for auditory or visual hallucination. DIAGNOSTICS: None. IMPRESSION: 1. Deconditioning. 2. Gait dysfunction. 3. Status post narcotic drug rehab. 4. Chronic narcotic seeking pain syndrome. 5. Narcotic seeking behavior. 6. Hypertension. 7. Frontal alopecia. 8. Poor compliance. 9. Insomnia. 10. Constipation. 11. Advanced human immunodeficiency virus and acquired immune deficiency syndrome. 12. Anxiety. 13. Hyperlipidemia. 14. Hypertriglyceridemia. 15. Bo esophagitis and oral thrush. 16. Secondary hyperparathyroidism. 17. Gastroparesis. 18 Hypothyroidism. 19. History of recurrent pneumonia, atelectasis. 20. History of systolic congestive heart failure. 22. Questionable functional quadriplegia secondary to noncompliance with physical therapy and noncompliance to be out of bed to chair. 1. Acute exacerbation of systolic congestive heart failure with pulmonary vascular congestion and volume overload with symptoms of shortness of breath. 2. Normocytic anemia of chronic kidney disease. 3 Status post packed red blood cell transfusion x2. 4 Low grade fever. 5. Thrombocytopenia. 6. Advanced human immunodeficiency virus, acquired immunodeficiency syndrome. 7. History of poor compliance with antiretroviral therapy and history of poor compliance with most of the medications. 8. Frontal scalp alopecia. 9. End-stage renal disease, hemodialysis dependent, 3 times a week, via the left upper extremity arteriovenous fistula. 10. Deconditioning. 11. Gait dysfunction. 12. Diffuse myalgia. 13. Mood disorder. 14. Chronic constipation. 15. History of coronary artery disease with multiple stent placement. 16. Dyslipidemia. 17. Hypertriglyceridemia. 18. History of bo esophagitis and oral thrush. 19. Secondary hyperparathyroidism. 20. Gastroparesis. 21. Hypothyroidism. 22. History of narcotic seeking behavior. 23. Nonspecific pain syndrome. 24. Questionable and possible hyperesthesia. 1. Congestive heart failure and fluid and volume overload. 2. Anemia. 3. Thrombocytopenia. 4. End-stage renal disease, hemodialysis dependent. 5. Transaminitis. 6. Hypovitaminosis D. 7. Severe noncompliance. 8. Questionable possible pancreatitis. 9. Narcotic seeking behavior. 10. Constipation. 11. Hyperlipidemia. 12. Hypertriglyceridemia. 13. History of Bo esophagitis. 14. Secondary hyperparathyroidism. 15. Advanced human immunodeficiency virus and acquired immune deficiency syndrome. 16. History of insomnia. 17. History of coronary artery disease and angioplasty. 1. Shortness of breath and status post rapid response secondary to shortness of breath. 2. Normocytic anemia with thrombocytopenia and granulocytosis. 3. End-stage renal disease, hemodialysis dependent. 4. Transaminitis. 5. Hypertriglyceridemia. 6. Elevated amylase and lipase, etiology undetermined. 7. Hypovitaminosis D. 8. Hyperprocalcitonemia. 9. Increasing bibasilar atelectasis and bilateral pleural effusion. 10. Bilateral upper lobe opacity versus pneumonia. 11. Cardiomegaly. 12. Moderate pericardial effusion. 13. Mediastinal lymphadenopathy. 14. Hiatal hernia. 15. 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 16. Cholecystectomy. 17. Hepatic and perisplenic ascites. 18. Status post flash pulmonary edema with symptoms of shortness of breath. 19. HIV acquired immune deficiency syndrome with severe noncompliance with HIV therapy. 20. History of noncompliance. 21. Narcotic seeking behavior. 22. Chronic abdominal pain and musculoskeletal pain. 23. Dilated cardiomyopathy with left ventricular ejection fraction of 36%. 24. Pulmonary arterial hypertension with elevated right ventricular systolic pressure of 57 mmHg. 25. Moderate to severely impaired left ventricular systolic function with global left ventricular hypokinesis. 26. Grade 2 pseudonormal filling dynamics. 27. Borderline dilated left and right atrium. 28. Moderately thickened aortic valve. 29. Moderately thickened mitral valve with moderate mitral regurgitation. 30. Moderate tricuspid regurgitation with moderate pulmonary arterial hypertension and right ventricular systolic pressure of 57 mmHg. 31. Questionable pancreatitis. 32. Possible mood disorder. 1. Shortness of breath, etiology undetermined. 2. Status post rapid response secondary to shortness of breath. 3. History of narcotic dependent pain syndrome and narcotic seeking behavior. 4. Tachycardia. 5. Leukopenia. 6. Human immunodeficiency virus infection, acquired immune deficiency syndrome. 7. History of severe noncompliance and poor compliance. 8. Anemia, thrombocytopenia and pancytopenia. 9. Hypoxemia. 10. End-stage renal disease, hemodialysis dependent via the left upper extremity arteriovenous fistula. 11. Questionable systolic congestive heart failure with elevated BNP. 12. Transaminitis. 13. Elevated lipase, etiology undetermined. 14. History of hypothyroidism. 15. Worsening pulmonary venous congestion and right lower lobe consolidation. 16. Cardiomegaly. 17. Possible pneumonia. 18. Right lower lobe consolidation, questionable healthcare-associated pneumonia and consolidation. 19. Narcotic seeking pain syndrome. 20. Normocytic anemia and thrombocytopenia. 21. Nonspecific ST-T wave abnormalities. 22. Questionable gastroparesis. 23. Insomnia. 24. Questionable depression. 25. History of opioid addiction. 26. Possible mood disorder secondary to above. 27. Major depressive disorder. PLAN: At this time, the patient has been admitted to transitional care unit. The patient has been consulted with the director outpatient services for continuation of the hemodialysis 3 times a week. The patient has been ordered labs on dialysis. The patient has been resumed on all the medications at transitional care unit. The patient has been ordered Lidoderm 5% patch to the affected area over the ribcage and abdominal wall. The patient is ordered Bactroban cream to the affected area. The patient is ordered Benadryl 25 IV every 4 p.r.n. The patient is on Bentyl 10 mg p.o. every 8 hours p.r.n., Colace 100 mg 3 times a day, Prezista 800 mg daily, Tivicay 50 mg daily, Ecotrin 81 mg daily , Klonopin 0.5 mg at bedtime, Lipitor 20 mg daily, Lopressor 50 mg twice a day, Lovaza 1 g twice a day, MiraLax 17 g twice a day, Mycelex troches 10 mg 5 times a day, Norvir 100 mg daily, PhosLo 667 mg 3 times a day with meals, Plavix 75 mg daily, Protonix 40 mg twice a day, Reglan 5 mg every 6 hours, Remeron 30 mg at bedtime, Synthroid 25 mcg p.o. daily, Tylenol 650 every 12 p.r.n., Xopenex nebulizer 0.63 mg every 6 hours, Zofran 4 mg IV every 4 p.r.n., Mucomyst nebulizer 20% 4 mL nebulizer to be given together with Xopenex nebulizer. The patient is being ordered out of bed to chair. The patient has been ordered TCU, physical therapy, occupational therapy, ambulation therapy, gait training. The patient was encouraged again to be out of bed to chair, ambulate. The patient was also advised to comply with medications, and physician and nurses recommendation. The patient was advised to comply with the treatment by all the care provided associated with the patient's care. The patient will be continued on above therapeutic intervention. Dictated and electronically signed, not read. Ranjith Rubalcava MD [facility]
[2017-08-25] MEDS: POLYETHYLENE GLYCOL 3350 17 GM/Dose PACKET PO SCH ×2 (10:00→17:06)
[2017-08-25] MEDS: Lidocaine 5% Patch TD SCH (10:12)
[2017-08-25] MEDS: Atovaquone 750 mg/5 ml Susp UD PO SCH ×2 (10:13→17:06)
[2017-08-25] MEDS: Omega-3-Acid Ethyl Esters 1 GM Cap PO SCH ×2 (10:13→17:05)
[2017-08-25] MEDS: Multivitamin Therapeutic Tab PO SCH (10:14)
[2017-08-25] MEDS: Acetylcysteine 20% Inhal Soln (4ml) IH SCH ×2 (14:01→20:00)
--- NOTE | 2017-08-25 21:53 | CP.PCM.PN ---
Subjective - Date & Time of Evaluation Date of Evaluation: 08/25/17 Time of Evaluation: 11:40 - Subjective Subjective: Resting comfortably on a chair, no SOB at rest. No fevers. Objective - Vital Signs/Intake and Output Vital Signs (last 24 hours): Temp Pulse Resp BP Pulse Ox 98.4 F 76 18 132/80 99 08/24/17 16:00 08/24/17 17:49 08/24/17 16:00 08/24/17 17:49 08/24/17 16:00 - Medications Medications: Current Medications Acetaminophen (Tylenol 325mg Tab) 650 mg PO Q4H PRN; Protocol PRN Reason: Fever >100.4 F Acetylcysteine (Acetylcysteine 20%) 4 ml IH [id number] DOUGLAS Aspirin (Ecotrin) 81 mg PO 0800 DOUGLAS PRN Reason: Protocol Last Admin: 08/24/17 08:36 Dose: 81 mg Atorvastatin Calcium (Lipitor) 20 mg PO DIN DOUGLAS PRN Reason: Protocol Last Admin: 08/24/17 17:48 Dose: 20 mg Clonazepam (Klonopin) 0.5 mg PO HS DOUGLAS PRN Reason: Protocol Last Admin: 08/24/17 21:22 Dose: 0.5 mg Clopidogrel Bisulfate (Plavix) 75 mg PO DAILY DOUGLAS PRN Reason: Protocol Last Admin: 08/24/17 10:30 Dose: 75 mg Clotrimazole (Mycelex Tejal) 10 mg MT 5XD DOUGLAS PRN Reason: Protocol Last Admin: 08/25/17 05:37 Dose: 10 mg Dicyclomine HCl (Bentyl) 10 mg PO Q8H PRN; Protocol PRN Reason: abd. pain and cramping Diphenhydramine HCl (Benadryl) 25 mg IVP Q4H PRN; Protocol PRN Reason: Allergy symptoms Last Admin: 08/25/17 03:26 Dose: 25 mg Docusate Sodium (Colace) 100 mg PO TID DOUGLAS PRN Reason: Protocol Last Admin: 08/24/17 18:44 Dose: Not Given Folic Acid (Folic Acid) 1 mg PO DAILY DOUGLAS PRN Reason: Protocol Last Admin: 08/24/17 10:27 Dose: 1 mg Home Med (Home Med) 1 unit PO 0800 DOUGLAS Last Admin: 08/24/17 08:37 Dose: 1 unit Home Med (Home Med) 1 unit PO DAILY [facility] Last Admin: 08/24/17 10:27 Dose: 1 unit Levalbuterol HCl (Xopenex) 0.63 mg IH [id number] PRN; Protocol PRN Reason: Shortness of Breath Last Admin: 08/24/17 20:40 Dose: 0.63 mg Levothyroxine Sodium (Synthroid) 25 mcg PO 0600 DOUGLAS PRN Reason: Protocol Last Admin: 08/25/17 05:37 Dose: 25 mcg Lidocaine (Lidoderm) 2 ea TD DAILY DOUGLAS PRN Reason: Protocol Last Admin: 08/24/17 10:28 Dose: Not Given Metoclopramide HCl (Reglan) 5 mg PO 0630,1200,1700,2200 DOUGLAS PRN Reason: Protocol Last Admin: 08/25/17 05:37 Dose: 5 mg Metoprolol Tartrate (Lopressor) 50 mg PO 0800,1800 DOUGLAS PRN Reason: Protocol Last Admin: 08/24/17 17:49 Dose: 50 mg Mirtazapine (Remeron) 30 mg PO HS DOUGLAS PRN Reason: Protocol Last Admin: 08/24/17 21:23 Dose: 30 mg Multivitamins (Thera Tab) 1 tab PO DAILY DOUGLAS PRN Reason: Protocol Last Admin: 08/24/17 10:30 Dose: 1 tab Mupirocin (Bactroban Ointment) 1 gm TOP TID DOUGLAS PRN Reason: Protocol Last Admin: 08/24/17 18:44 Dose: Not Given Rpidz-9-Llri Ethyl Esters (Lovaza) 1 gm PO BID DOUGLAS PRN Reason: Protocol Last Admin: 08/24/17 17:50 Dose: 1 gm Ondansetron HCl (Zofran Inj) 4 mg IVP Q4H PRN; Protocol PRN Reason: Nausea/Vomiting Last Admin: 08/23/17 12:38 Dose: 4 mg Pantoprazole Sodium (Protonix Ec Tab) 40 mg PO 0630,2000 DOUGLAS PRN Reason: Protocol Last Admin: 08/25/17 05:37 Dose: 40 mg Polyethylene Glycol (Miralax) 17 gm PO BID DOUGLAS PRN Reason: Protocol Last Admin: 08/24/17 17:50 Dose: Not Given Ritonavir (Norvir) 100 mg PO 0800 DOUGLAS PRN Reason: Protocol Last Admin: 08/24/17 08:38 Dose: 100 mg - Constitutional Appears: Chronically Ill - Head Exam Head Exam: NORMAL INSPECTION - ENT Exam ENT Exam: Mucous Membranes Moist - Neck Exam Neck Exam: absent: Meningismus - Respiratory Exam Respiratory Exam: Decreased Breath Sounds - Cardiovascular Exam Cardiovascular Exam: +S1, +S2 - GI/Abdominal Exam GI & Abdominal Exam: Soft. absent: Tenderness Assessment and Plan - Assessment and Plan (Free Text) Plan: Assessment S/P systemic inflammatory response syndrome, consider due to acute pancreatitis related to hypertriglyceridemia S/P oral candidiasis history of Cony esophagitis with oral candidiasis HIV and AIDS, non-compliant with ART, last CD4 count 66 in august 2017 history of Cdiff associated diarrhea history of left upper lobe HCAP erosive gastritis HTN chronic renal failure on hemodialysis coronary artery disease history of UTI history of esophageal ulcer S/P cholecystecomty Plan continue ART and PJP Prophylaxis will continue to monitor clinically off antibiotics
[2017-08-26] MEDS: DiphenhydrAMINE 50 mg/ml Inj IVP PRN ×5 (01:26→20:40)
[2017-08-26] MEDS: Acetylcysteine 20% Inhal Soln (4ml) IH SCH ×4 (02:40→21:30)
--- NOTE | 2017-08-26 04:01 | PN ---
DATE: 08/25/2017 SUBJECTIVE: The patient is seen in room 320, bed 1. Ambulating in the hallway with cane and with the daughter. Patient's overnight nurse's notes were reviewed. Patient was totally pain-free. PHYSICAL EXAMINATION: VITAL SIGNS: T-max 98.8, pulse 77; blood pressure 133/82, 131/80; respirations 20 and O2 sat 98% to 99%. HEENT: Head examination, normocephalic and atraumatic. HEENT examination shows pinkish pale conjunctivae. Anicteric sclerae. Positive frontal alopecia. NECK: No neck rigidity. CHEST: Kyphosis. Positive decreased chest wall tenderness. LUNGS: Show positive rhonchi, right more than the left. No crackles, rales or wheezing. CARDIOVASCULAR: S1, S2, regular rhythm. Positive systolic murmur at left sternal border, right second intercostal space, left second intercostal space. GENITALIA: Female. RECTAL EXAMINATION: Deferred. EXTREMITIES: Show no pitting edema, no calf tenderness. No Homans sign. Positive left upper extremity AV fistula. ABDOMEN: Epigastric tenderness has decreased significantly. No hepatosplenomegaly noted. No right and left upper quadrant tenderness noted. MUSCULOSKELETAL: Shows a body mass index of 21.7. IMPRESSION AND PLAN: 1. Deconditioning. 2. Gait dysfunction. 3. Advanced human immunodeficiency virus/acquired immune deficiency syndrome. 4. Healthcare-associated pneumonia. 5. Questionable pancreatitis. 6. End-stage renal disease, hemodialysis dependent, three times a week via the left upper extremity fistula. 7. Coronary artery disease with coronary angioplasty and non-ST elevation myocardial infarction. 8. Systemic inflammatory response syndrome. 9. Esophageal candidiasis with history of Cony esophagitis and oral candidiasis. 10. CD4 lymphopenia with advanced human immunodeficiency virus/acquired immune deficiency syndrome. 11. History of poor compliance. 12. Hypertension. 13. Narcotic-seeking behavior. 14. Mood disorder. 15. Questionable anxiety and depression. 16. Hypertriglyceridemia. 17. Hyperlipidemia. 18. Gastroparesis. 19. Hypothyroidism. 20. Hypercholesteremia. Plan at this time, the patient has been ordered repeat labs on the dialysis tomorrow. Current consultation, Nephrology and Infectious Disease. CURRENT MEDICATIONS: 1. Mucomyst nebulizer 20% 4 mL with Xopenex nebulizer 0.63 mg four times a day. 2. Bactroban cream to the affected area three times a day. 3. Benadryl 25 mg IV every 4 hours p.r.n. 4. Bentyl 10 mg p.o. every 8 hours p.r.n. 5. Colace 100 mg three times a day. 6. Patient was given Diflucan 150 dose yesterday. 7. Ecotrin 81 mg daily. 8. Folic acid 1 mg daily. 9. Patient is on 50 mg daily. 10. Patient is on Prezista 800 mg daily. 11. Patient is on Klonopin 0.5 at bedtime. 12. Lidoderm 5% patch to the affected area. 13. Lipitor 20 mg daily. 14. Metoprolol/Lopressor 50 mg twice a day. 15. Lovaza 1 g twice a day. 16. Mepron 750 twice a day. 17. MiraLax 17 g twice a day. 18. Mycelex Tmuhafy27 mg five times a day. 19. Norvir 100 mg daily. 20. Plavix 75 mg daily. 21. Protonix 40 mg twice a day. 22. Reglan 5 mg every 6 hours. 23. Remeron 30 mg at bedtime. 24. Synthroid 25 mcg daily. 25. Multivitamin. 26. Thera-Flu 1 tablet daily. 27. Tylenol 650 every 4 hours p.r.n. 28. Xopenex nebulizer 0.63 every 6 hours. 29. Zofran 4 mg IV every 4 hours p.r.n. Patient was on chest PT. Patient has been ordered HUNTER stockings, SCDs, physical therapy, occupational therapy. Patient will continue on hemodialysis tomorrow. Dictated and electronically signed, not read. Ranjith Rubalcava MD
[2017-08-26] MEDS: Levothyroxine 25 MCG TAB PO SCH (05:28)
[2017-08-26] MEDS: Pantoprazole 40 mg EC Tab PO SCH ×2 (05:30→21:00)
[2017-08-26] MEDS: Levalbuterol 0.63 MG/3 ML Inhal Soln UD IH PRN ×2 (07:39→13:18)
[2017-08-26] MEDS: DARUNAVIR 800 MG PO SCH (08:35)
[2017-08-26] MEDS: Atovaquone 750 mg/5 ml Susp UD PO SCH ×2 (09:13→18:24)
[2017-08-26] MEDS: Lidocaine 5% Patch TD SCH (09:13)
[2017-08-26] MEDS: Omega-3-Acid Ethyl Esters 1 GM Cap PO SCH ×2 (09:13→18:23)
[2017-08-26] MEDS: POLYETHYLENE GLYCOL 3350 17 GM/Dose PACKET PO SCH ×2 (09:14→18:24)
[2017-08-26] MEDS: Multivitamin Therapeutic Tab PO SCH (09:15)
--- NOTE | 2017-08-26 14:53 | PN ---
DATE: SUBJECTIVE: The patient is currently seen sitting at bedside. She is preparing to go down for her routine dialysis. She is on a Friday, , Friday schedule. She is status post pneumonia and currently has no abdominal pain. She is currently not receiving any narcotic analgesics. MEDICATIONS: Medication list reviewed. The patient is on acetylcysteine, Bactroban, Benadryl, Bentyl, Colace, Ecotrin, folic acid, Prezista, Tivicay, Klonopin, Lidoderm, Lipitor, Lopressor, Lovaza, Mepron, MiraLax, Mycelex, Norvir, Plavix, Protonix, Reglan, Remeron, Synthroid, MultiVites, Tylenol, Xopenex p.r.n. and Zofran p.r.n. OBJECTIVE: VITAL SIGNS: Blood pressure 130/87, temperature 98.3, respiratory rate is 18 with a pulse of 83. HEENT: Shows her to be normocephalic, atraumatic. Conjunctiva are pale. Sclerae are nonicteric. NECK: Supple. No neck vein distention. CHEST: Clear to auscultation and percussion with no rales, rhonchi or wheezing. CARDIOVASCULAR: Shows a regular rate and rhythm with no audible murmurs, rubs or gallops noted. ABDOMEN: Soft. No tenderness on palpation of the midepigastric area. No rebound or guarding. Bowel sounds are normal. EXTREMITIES: No lower extremity edema. Positive left upper extremity AV fistula. LABORATORY DATA: No recent labs. Labs to be done predialysis today. ASSESSMENT: 1. Status post congestive heart failure, pneumonia, acute pancreatitis. These all to be improved. The patient is continuing rehabilitation in the Transitional Care Unit. She is asking me if she could leave prior to completing 8 days here. 2. History of end-stage renal disease. The patient will continue Friday, , Friday dialysis. 3. History of human immunodeficiency virus/acquired immune deficiency syndrome. The patient will continue HAART therapy. 4. History of esophageal ulcer with erosive gastritis, currently stable on proton pump inhibitor therapy. 5. Status post pneumonia. The patient has completed a course of antibiotic therapy. 6. History of anemia, in part secondary to chronic kidney disease, in part secondary to human immunodeficiency virus, in part secondary to recent infections. The patient will receive Aranesp and iron on dialysis as per protocol. 7. History of secondary hyperparathyroidism. Check phosphorus level with today's dialysis and restart binder therapy as necessary. PLAN: 1. Continue rehabilitation in the TCU. 2. Routine hemodialysis today. 3. Continue present medications for her HIV. 4. The patient is stable from a renal standpoint. David Crump MD
[2017-08-26 15:32] LABS: BASO # 0.01 K/mm3 (0.0-2.0); BASO % 0.2 % (0.0-3.0); EOS % 0.5 % (1.5-5.0); GRAN # 3.81 (1.4-6.5); GRAN % 57.5 % (50.0-68.0); HEMOGLOBIN 10.2 g/dL (12.0-16.0); LYMPH # 2.4 (1.2-3.4); LYMPH % 35.5 % (22.0-35.0); MEAN CELL VOLUME 96.1 fl (80.0-105.0); MEAN CORPUSCULAR HEMOGLOBIN 30.9 pg (25.0-35.0); MEAN CORPUSCULAR HGB CONC 32.2 g/dl (31.0-37.0); MEAN PLATELET VOLUME 11.6 fl (7.0-11.0); MONO # 0.4 (0.1-0.6); MONO % 6.3 % (1.0-6.0); RBC 3.3 10^6/uL (3.5-6.1); RED CELL DISTRIBUTION WIDTH 16.8 % (11.5-14.5); WHITE BLOOD COUNT 6.6 10^3/ul (4.5-11.0)
[2017-08-26 15:55] LABS: ALB/GLOB RATIO 0.9 (1.1-1.8); ALBUMIN 3.7 g/dL (3.0-4.8); BILIRUBIN,DIRECT 0.5 mg/dL (0.0-0.4); CALCIUM 8.6 mg/dL (8.4-10.5)
[2017-08-26] MEDS: Levalbuterol 0.63 MG/3 ML Inhal Soln UD IH SCH (21:30)
--- NOTE | 2017-08-27 02:16 | PN ---
DATE: 08/26/2017 SUBJECTIVE: Patient was seen early this morning, in no acute distress. Nontoxic. PHYSICAL EXAMINATION: VITAL SIGNS: Temperature is 98, blood pressure is 140/80, respiratory rate of 18, heart rate of 77. HEENT: Unremarkable. NECK: Supple. LUNGS: Have decreased breath sounds. HEART: Normal S1 and S2. ABDOMEN: Soft. LABORATORY EXAMINATION: Reveals a white count of 6.6, hemoglobin of 10, platelets of 106. Chemistries revealed a BUN of 81, creatinine of 10.6. ASSESSMENT AND PLAN: This is a 57 year old with systemic inflammatory response syndrome due to acute pancreatitis with hypertriglyceridemia, oral candidiasis with a history of Cony esophagitis, and history of human immunodeficiency virus and acquired immune deficiency syndrome. Continue the human immunodeficiency virus medications and prophylaxis, off antibiotics. We will follow with you. Meliton Rodriguez MD
--- NOTE | 2017-08-27 02:28 | PN ---
DATE: 08/26/2017 SUBJECTIVE: The patient is seen in the gym room today at Transitional Care Unit. Patient is awake, responsive, doing exercise. Patient does not appear to be in any distress. PHYSICAL EXAMINATION: VITAL SIGNS: T-max 98.3, pulse 84, blood pressure 137/87. HEENT: Head examination, normocephalic and atraumatic. HEENT examination shows pinkish pale conjunctivae. Anicteric sclerae. No oropharyngeal lesion. Positive frontal alopecia noted. NECK: No neck rigidity. CHEST: Kyphosis. LUNGS: Show positive decreased rales and rhonchi, right more than the left. Questionable decreased breath sound at the left base. CARDIOVASCULAR: S1and S2, regular rhythm. Positive systolic murmur at left sternal border, left second intercostal space. ABDOMEN: Soft. Positive bowel sounds. No appreciable and palpable right and left upper and lower quadrant tenderness. No epigastric periumbilical tenderness. No guarding. No rigidity. No rebound tenderness. No hepatosplenomegaly. GENITALIA: Female. RECTAL EXAMINATION: Deferred. EXTREMITIES: Show no pitting edema, no calf tenderness. No Homans sign. Positive left upper extremity AV fistula, positive thrill. MUSCULOSKELETAL: Examination shows a body mass index of 22. NEUROLOGIC: The patient is alert, awake and oriented x3. Cranial nerves II through XII intact. Gait examination is independent. Motor strength is 5/5. PSYCHIATRIC: Examination is negative for anxiety, depression. Negative for suicidal or homicidal ideation. Negative for auditory or visual hallucination. DIAGNOSTICS: On , WBC 6.6, hemoglobin and hematocrit 10.2 and 31.7, platelet 106. Sodium 143, potassium 4, chloride 98, CO2 of 24, anion gap 25, BUN 81, creatinine 10.6, GFR of 5 and glucose 149. AST 60. Rest of the electrolytes are normal. IMPRESSION AND PLAN: 1. Deconditioning. 2. Gait dysfunction. 3. Status post volume overload and congestive heart failure. 4. Systolic congestive heart failure and systolic cardiomyopathy. 5. Quite possible pancreatitis. 6. End-stage renal disease, hemodialysis dependent three times a week via the left upper extremity AV fistula. 7. History of esophageal candidiasis and oral candidiasis. 8. Questionable pneumonia. 9. Anemia of chronic kidney disease. 10. Secondary hyperparathyroidism. 11. Frontal alopecia. 12. Systemic inflammatory response syndrome. 13. Acute pancreatitis. 14. Advanced human immunodeficiency virus/acquired immune deficiency syndrome with CD4 lymphopenia and noncompliance with human immunodeficiency virus therapy. 15. Hypertension. 16. History of non-ST elevation myocardial infarction with history of coronary artery disease. 17. Thrombocytopenia. 18. Normocytic anemia. 19. Status post packed red blood cell transfusion. 20. History of angioplasty. 21. Unstable angina. 22. Hypothyroidism. 23. Narcotic seeking behavior. 24. History of constipation, fecal stasis. 25. History of narcotic-induced constipation. 26. Mood disorder. 27. Anxiety disorder. 28. Hyperlipidemia. 29. Hypertriglyceridemia. 30. Gastroparesis. Plan at this time, patient is to be continued on Transitional Care Unit stay until completion of the Transitional Care Unit. Patient has been ordered repeat labs on dialysis. CURRENT CONSULTATIONS: Nephrology, Infectious Disease. CURRENT MEDICATIONS: 1. Mucomyst nebulizer 20% 4 mL every 6 hours. 2. Bactroban cream to the affected area. 3. Benadryl 25 mg IV every 4 hours. 4. Bentyl 10 mg p.o. every 8 hours p.r.n. 5. Colace 100 mg three times a day 6. Aspirin 81 mg daily. 7. Folic acid 1 mg daily. 8. Prezista 800 mg daily. 9. Tivicay 50 mg daily. 10. Patient is on Klonopin 0.5 at bedtime. 11. Lidoderm 5% patch to the affected area. 12. Lipitor 20 mg daily. 13. Lopressor 50 mg twice a day. 14. Lovaza 1 g twice a day. 15. Mepron 750 mg twice a day. 16. MiraLax 17 g twice a day. 17. Mycelex Troches 10 mg five times a day. 18. Norvir 100 mg daily. 19. Plavix 75 mg daily. 20. Protonix 40 mg daily. 21. Reglan 5 mg every 6 hours. 22. Remeron 30 mg at bedtime. 23. Synthroid 25 mcg daily. 24. Multi-vitamin 1 tablet daily. 25. Tylenol 650 every 4 hours p.r.n. 26. Xopenex 0.63 mg every 6 hours p.r.n., which should be changed to round the clock. Xopenex 0.63 mg nebulizer every 6 hours [id number]. 27. Patient is on Zofran 4 mg IV every 4 hours. Chest PT every 6 hours. Patient is on renal diet. At present, patient will be continued to be on Transitional Care Unit stay with physical therapy, occupational therapy, ambulation therapy and gait training. Dictated and electronically signed, not read. Ranjith Rubalcava MD
[2017-08-27] MEDS: Acetylcysteine 20% Inhal Soln (4ml) IH SCH ×4 (03:00→21:50)
[2017-08-27] MEDS: Levalbuterol 0.63 MG/3 ML Inhal Soln UD IH SCH ×4 (03:00→21:50)
[2017-08-27] MEDS: DiphenhydrAMINE 50 mg/ml Inj IVP PRN ×5 (05:01→22:18)
[2017-08-27] MEDS: Pantoprazole 40 mg EC Tab PO SCH ×2 (05:39→20:07)
[2017-08-27] MEDS: Levothyroxine 25 MCG TAB PO SCH (05:39)
[2017-08-27] MEDS: DARUNAVIR 800 MG PO SCH (08:11)
[2017-08-27] MEDS: Atovaquone 750 mg/5 ml Susp UD PO SCH ×2 (10:29→17:28)
[2017-08-27] MEDS: Lidocaine 5% Patch TD SCH (10:29)
[2017-08-27] MEDS: POLYETHYLENE GLYCOL 3350 17 GM/Dose PACKET PO SCH ×2 (10:30→17:28)
[2017-08-27] MEDS: Multivitamin Therapeutic Tab PO SCH (10:30)
[2017-08-27] MEDS: Omega-3-Acid Ethyl Esters 1 GM Cap PO SCH ×2 (10:31→17:27)
--- NOTE | 2017-08-27 14:45 | PN ---
DATE: 08/27/2017 SUBJECTIVE: The patient is seen walking around in the hallway. She is awake. She is alert. She is comfortable. She feels really good today. She reports she wants to go home. PHYSICAL EXAMINATION: GENERAL: Middle-aged lady, lying in bed. VITAL SIGNS: Blood pressure 135/83, heart rate 84, respiratory rate 18, temperature 98.3. HEENT: Normocephalic, atraumatic. NECK: Supple, no JVD. LUNGS: Bilateral equal air entry, bilateral equal expansion. EXTREMITIES: No lower extremity edema. LABORATORY DATA: Hemoglobin 10, potassium 4, BUN 81, creatinine 10.6. MEDICATIONS: List reviewed. ASSESSMENT: 1. Status post pneumonia. 2. Status post epigastric pain. 3. Hypertension. 4. End-stage renal disease. 5. Coronary artery disease. 6. Human immunodeficiency virus. PLAN: 1. Continue current management. 2. Continue physical therapy. 3. Dialysis tomorrow. Meryl Shukla MD
--- NOTE | 2017-08-27 15:44 | PN ---
DATE: 08/27/2017 LOCATION: Room 320, bed 1. Overnight nurses' notes were reviewed. No adverse events documented.. The patient slept well during the night. OBJECTIVE: VITAL SIGNS: T-max, the patient is afebrile; heart rate 74, 86, 90, 88 beats per minute; blood pressure averaging 120s-130s to 140s systolic, diastolic in 70s, 60s and 80 mmHg, respirations 18-20, O2 sat in mid to high 90%. HEENT: The patient's head examination is normocephalic, atraumatic. HEENT: Shows positive frontal alopecia. Pinkish pale conjunctivae. Anicteric sclerae. No oropharyngeal lesion. No neck rigidity. CHEST: Kyphosis. LUNGS: Shows significantly decreasing rhonchi, right more than the left. Questionable decreased breath sound at the left base. CARDIOVASCULAR: S1, S2, regular rhythm. Positive systolic murmur, left sternal border, right second intercostal space, left second intercostal space; decreasing ribcage and chest wall and sternal tenderness on palpation. ABDOMEN: Soft. Positive bowel sounds. No appreciable guarding, rigidity, rebound tenderness noted. No costovertebral angle tenderness. No hepatosplenomegaly noted. No right and left upper quadrant tenderness noted. No epigastric periumbilical tenderness noted. GENITALIA: Female. RECTAL: Deferred. EXTREMITIES: Shows positive left upper extremity AV fistula, positive noted. Lower extremity shows no pitting edema, no Homans' sign. NEUROLOGIC: The patient is alert, awake, oriented x3. Cranial nerves II-XII grossly intact. Motor strength is 5/5. MUSCULOSKELETAL: Examination shows a decreased body mass index. Gait examination is not tested. DIAGNOSTIC DATA: 08/27, none. The patient's diagnostics has been ordered on dialysis only. IMPRESSION AND PLAN: 1. Deconditioning. 2. Gait dysfunction. 3. Severe noncompliance and poor compliance. 4. Advanced acquired immune deficiency and human immunodeficiency virus with CD-4 lymphopenia. 5. Possible dilated ischemic cardiomyopathy. 6. Systolic congestive heart failure with elevated BNP, volume overload and fluid overload. 7. Questionable community-acquired versus healthcare-associated pneumonia. 8. Hypertension. 9. Coronary artery disease. 10. History of [id number] myocardial infarction with angioplasty and stent placement. 11. End-stage renal disease, hemodialysis dependent. 12. Left upper extremity arteriovenous fistula three times a week. 13. Anemia. 14. Thrombocytopenia. 15. Hypertension. 16. Hyperlipidemia and hypertriglyceridemia. 17. Hypothyroidism. 18. History of Cony esophagitis and oral candidiasis. 19. Secondary hyperparathyroidism of origin. 20. Status post packed red blood cell transfusion. 21. Frontal scalp alopecia. 22. Constipation. 23. Gastroparesis. 24. Anxiety disorder. 25. Mood disorder. 26. Insomnia. PLAN: At this time, the patient is to be continued on the Transitional Care Unit stay with continuation of the physical therapy, occupational therapy, out of bed, ambulation therapy, gait training. The patient will continue on hemodialysis three times a week Friday, , Friday. The patient will be discharged upon completion of TCU stay. I have already met with the patient and the patient's daughter and I have advised the patient needs splint upon discharge, which the patient has not been doing since labs and I have advised the patient and the patient's daughter to renew and reinstate the patient's prescription plan as soon as possible so the patient will be able to get all her medications. All of the above, the patient acknowledge and understand. All questions concerned answered. Ranjith Rubalcava MD
--- NOTE | 2017-08-27 22:22 | CP.PCM.PN ---
Subjective - Date & Time of Evaluation Date of Evaluation: 08/27/17 Time of Evaluation: 12:20 - Subjective Subjective: Comfortable on a chair, not in distress, afebrile. Objective - Vital Signs/Intake and Output Vital Signs (last 24 hours): Temp Pulse Resp BP Pulse Ox 98 F 86 18 146/88 94 L 08/27/17 10:00 08/27/17 11:55 08/27/17 10:00 08/27/17 17:26 08/27/17 11:55 - Medications Medications: Current Medications Acetaminophen (Tylenol 325mg Tab) 650 mg PO Q4H PRN; Protocol PRN Reason: Fever >100.4 F Acetylcysteine (Acetylcysteine 20%) 4 ml IH [id number] [facility] Last Admin: 08/27/17 21:50 Dose: 4 ml Aspirin (Ecotrin) 81 mg PO 0800 [facility] PRN Reason: Protocol Last Admin: 08/27/17 08:10 Dose: 81 mg Atorvastatin Calcium (Lipitor) 20 mg PO DIN [facility] PRN Reason: Protocol Last Admin: 08/27/17 17:25 Dose: 20 mg Atovaquone (Mepron) 750 mg PO 0800,1800 [facility] PRN Reason: Protocol Last Admin: 08/27/17 17:28 Dose: 750 mg Clonazepam (Klonopin) 0.5 mg PO HS [facility] PRN Reason: Protocol Last Admin: 08/27/17 21:14 Dose: 0.5 mg Clopidogrel Bisulfate (Plavix) 75 mg PO DAILY [facility] PRN Reason: Protocol Last Admin: 08/27/17 10:31 Dose: 75 mg Clotrimazole (Mycelex Tejal) 10 mg MT 5XD [facility] PRN Reason: Protocol Last Admin: 08/27/17 21:14 Dose: 10 mg Dicyclomine HCl (Bentyl) 10 mg PO Q8H PRN; Protocol PRN Reason: abd. pain and cramping Diphenhydramine HCl (Benadryl) 25 mg IVP Q4H PRN; Protocol PRN Reason: Allergy symptoms Last Admin: 08/27/17 22:18 Dose: 25 mg Docusate Sodium (Colace) 100 mg PO TID [facility] PRN Reason: Protocol Last Admin: 08/27/17 17:24 Dose: Not Given Folic Acid (Folic Acid) 1 mg PO DAILY [facility] PRN Reason: Protocol Last Admin: 08/27/17 10:28 Dose: 1 mg Home Med (Home Med) 1 unit PO DAILY [facility] Last Admin: 08/27/17 10:29 Dose: 1 unit Home Med (Home Med) 1 unit PO 0800 [facility] Levalbuterol HCl (Xopenex) 0.63 mg IH [id number] [facility] PRN Reason: Protocol Last Admin: 08/27/17 21:50 Dose: 0.63 mg Levothyroxine Sodium (Synthroid) 25 mcg PO 0600 [facility] PRN Reason: Protocol Last Admin: 08/27/17 05:39 Dose: 25 mcg Lidocaine (Lidoderm) 2 ea TD DAILY [facility] PRN Reason: Protocol Last Admin: 08/27/17 10:29 Dose: 2 ea Metoclopramide HCl (Reglan) 5 mg PO 0630,1200,1700,2200 [facility] PRN Reason: Protocol Last Admin: 08/27/17 21:14 Dose: 5 mg Metoprolol Tartrate (Lopressor) 50 mg PO 0800,1800 [facility] PRN Reason: Protocol Last Admin: 08/27/17 17:26 Dose: 50 mg Mirtazapine (Remeron) 30 mg PO HS [facility] PRN Reason: Protocol Last Admin: 08/27/17 21:15 Dose: 30 mg Multivitamins (Thera Tab) 1 tab PO DAILY [facility] PRN Reason: Protocol Last Admin: 08/27/17 10:30 Dose: 1 tab Mupirocin (Bactroban Ointment) 1 gm TOP TID [facility] PRN Reason: Protocol Last Admin: 08/27/17 17:24 Dose: 1 applic [id number] Ethyl Esters (Lovaza) 1 gm PO BID [facility] PRN Reason: Protocol Last Admin: 08/27/17 17:27 Dose: 1 gm Ondansetron HCl (Zofran Inj) 4 mg IVP Q4H PRN; Protocol PRN Reason: Nausea/Vomiting Last Admin: 08/23/17 12:38 Dose: 4 mg Pantoprazole Sodium (Protonix Ec Tab) 40 mg PO 0630,2000 [facility] PRN Reason: Protocol Last Admin: 08/27/17 20:07 Dose: 40 mg Polyethylene Glycol (Miralax) 17 gm PO BID [facility] PRN Reason: Protocol Last Admin: 08/27/17 17:28 Dose: Not Given Ritonavir (Norvir) 100 mg PO 0800 [facility] PRN Reason: Protocol Last Admin: 08/27/17 08:13 Dose: 100 mg - Labs Labs: 08/26/17 15:10 08/26/17 15:10 - Constitutional Appears: Chronically Ill - Head Exam Head Exam: NORMAL INSPECTION - Respiratory Exam Respiratory Exam: Decreased Breath Sounds - Cardiovascular Exam Cardiovascular Exam: +S1, +S2 - GI/Abdominal Exam GI & Abdominal Exam: Soft. absent: Tenderness Assessment and Plan - Assessment and Plan (Free Text) Plan: Assessment S/P systemic inflammatory response syndrome, consider due to acute pancreatitis related to hypertriglyceridemia S/P oral candidiasis history of Cony esophagitis with oral candidiasis HIV and AIDS, non-compliant with ART, last CD4 count 66 in august 2017 history of Cdiff associated diarrhea history of left upper lobe HCAP erosive gastritis HTN chronic renal failure on hemodialysis coronary artery disease history of UTI history of esophageal ulcer S/P cholecystecomty Plan continue ART and PJP Prophylaxis will continue to monitor clinically off antibiotics since she is at risk for infections
[2017-08-28] MEDS: Levalbuterol 0.63 MG/3 ML Inhal Soln UD IH SCH ×5 (01:17→20:08)
[2017-08-28] MEDS: Acetylcysteine 20% Inhal Soln (4ml) IH SCH ×4 (01:17→20:08)
[2017-08-28] MEDS: DiphenhydrAMINE 50 mg/ml Inj IVP PRN ×4 (04:06→22:41)
[2017-08-28] MEDS: Pantoprazole 40 mg EC Tab PO SCH ×2 (05:31→21:00)
[2017-08-28] MEDS: Levothyroxine 25 MCG TAB PO SCH (05:32)
[2017-08-28] MEDS: DARUNAVIR 800 MG PO SCH (08:31)
[2017-08-28] MEDS: Atovaquone 750 mg/5 ml Susp UD PO SCH ×2 (08:54→18:19)
[2017-08-28] MEDS: Lidocaine 5% Patch TD SCH (10:12)
[2017-08-28] MEDS: Omega-3-Acid Ethyl Esters 1 GM Cap PO SCH ×2 (10:14→18:15)
[2017-08-28] MEDS: POLYETHYLENE GLYCOL 3350 17 GM/Dose PACKET PO SCH ×2 (10:15→18:19)
[2017-08-28] MEDS: Multivitamin Therapeutic Tab PO SCH (10:15)
--- NOTE | 2017-08-28 15:13 | PN ---
DATE: 08/28/2017 SUBJECTIVE: The patient is in bed, in no acute distress, nontoxic. No fevers and chills. PHYSICAL EXAMINATION: VITAL SIGNS: Temperature is 98, blood pressure is 140/80, respiratory rate of 16. HEENT: Unremarkable. NECK: Supple. LUNGS: Have decreased breath sounds. HEART: Normal S1 and S2. ABDOMEN: Soft. LABORATORY DATA: Reveals a white count of 6.6, hemoglobin of 10, platelets of 106. Chemistries reveals a BUN of 80, creatinine of 10. ASSESSMENT AND PLAN: A 57-year-old female with status post systemic inflammatory response syndrome due to acute pancreatitis secondary to hypertriglyceridemia, oral candidiasis in a patient with human immunodeficiency virus and acquired immunodeficiency syndrome, hypertension, and currently on highly active antiretroviral therapy and Pneumocystis carinii pneumonia prophylaxis. The patient to follow up in the office on 09/11/2017. She was given appointment for 09/11/2017 two weeks from today at 10 o'clock in the morning. She states that she will be there. Meliton Rodriguez MD
[2017-08-28 15:26] LABS: BASO # 0.02 K/mm3 (0.0-2.0); BASO % 0.3 % (0.0-3.0); EOS # 0.1 (0.0-0.7); EOS % 1.4 % (1.5-5.0); GRAN # 4.62 (1.4-6.5); GRAN % 66.2 % (50.0-68.0); LYMPH # 1.5 (1.2-3.4); LYMPH % 21.7 % (22.0-35.0); MEAN CELL VOLUME 98.1 fl (80.0-105.0); MEAN CORPUSCULAR HEMOGLOBIN 31.2 pg (25.0-35.0); MEAN CORPUSCULAR HGB CONC 31.7 g/dl (31.0-37.0); MEAN PLATELET VOLUME 11.7 fl (7.0-11.0); MONO # 0.7 (0.1-0.6); MONO % 10.4 % (1.0-6.0); RBC 3.21 10^6/uL (3.5-6.1); RED CELL DISTRIBUTION WIDTH 16.8 % (11.5-14.5)
[2017-08-28 15:40] LABS: ALB/GLOB RATIO 0.9 (1.1-1.8); ALBUMIN 3.7 g/dL (3.0-4.8); BILIRUBIN,DIRECT 0.7 mg/dL (0.0-0.4); CALCIUM 9.1 mg/dL (8.4-10.5)
--- NOTE | 2017-08-28 18:39 | PN ---
DATE: 08/28/2017 SUBJECTIVE: The patient is seen in the dialysis unit. She is awake. She is alert. She is comfortable. PHYSICAL EXAMINATION: VITAL SIGNS: Blood pressure 140/87, heart rate 84, respiratory rate 18, temperature 98.3. HEENT: Normocephalic, atraumatic. NECK: Supple. No JVD. LUNGS: Bilateral equal air entry, bilateral equal expansion. EXTREMITIES: No lower extremity edema. LABORATORY DATA: Hemoglobin 10, potassium 3.7. ASSESSMENT AND PLAN: 1. Stable dialysis. 2. Anemia of chronic kidney disease, stable. 3. Hypertension, controlled. 4. Human immunodeficiency virus. 5. Status post anemia. Meryl Shukla MD
[2017-08-29] MEDS: Acetylcysteine 20% Inhal Soln (4ml) IH SCH ×4 (01:56→20:56)
[2017-08-29] MEDS: Levalbuterol 0.63 MG/3 ML Inhal Soln UD IH SCH ×4 (01:56→20:56)
[2017-08-29] MEDS: Levothyroxine 25 MCG TAB PO SCH (05:46)
[2017-08-29 06:49] VITALS: RESP 20
[2017-08-29] MEDS: Pantoprazole 40 mg EC Tab PO SCH ×2 (06:53→21:58)
[2017-08-29] MEDS: DiphenhydrAMINE 50 mg/ml Inj IVP PRN ×4 (06:53→22:01)
--- NOTE | 2017-08-29 07:40 | CP.PCM.PN ---
Subjective - Date & Time of Evaluation Date of Evaluation: 08/29/17 Time of Evaluation: 07:15 - Subjective Subjective: (covering for Dr. Rubalcava) Patient is seen this morning. She says she feels good and she is to go home tomorrow. She denies shortness of breath or abdominal pain. Objective - Vital Signs/Intake and Output Vital Signs (last 24 hours): Temp Pulse Resp BP Pulse Ox 97.8 F 79 20 142/91 H 95 08/29/17 06:00 08/29/17 06:00 08/29/17 06:00 08/29/17 06:00 08/29/17 06:00 - Medications Medications: Current Medications Acetaminophen (Tylenol 325mg Tab) 650 mg PO Q4H PRN; Protocol PRN Reason: Fever >100.4 F Acetylcysteine (Acetylcysteine 20%) 4 ml IH [id number] [facility] Last Admin: 08/29/17 01:56 Dose: Not Given Aspirin (Ecotrin) 81 mg PO 0800 [facility] PRN Reason: Protocol Last Admin: 08/28/17 08:56 Dose: 81 mg Atorvastatin Calcium (Lipitor) 20 mg PO DIN [facility] PRN Reason: Protocol Last Admin: 08/28/17 18:16 Dose: 20 mg Atovaquone (Mepron) 750 mg PO 0800,1800 [facility] PRN Reason: Protocol Last Admin: 08/28/17 18:19 Dose: 750 mg Clonazepam (Klonopin) 0.5 mg PO HS [facility] PRN Reason: Protocol Last Admin: 08/28/17 21:47 Dose: 0.5 mg Clopidogrel Bisulfate (Plavix) 75 mg PO DAILY [facility] PRN Reason: Protocol Last Admin: 08/28/17 10:16 Dose: 75 mg Clotrimazole (Mycelex Tejal) 10 mg MT 5XD [facility] PRN Reason: Protocol Last Admin: 08/29/17 05:46 Dose: 10 mg Dicyclomine HCl (Bentyl) 10 mg PO Q8H PRN; Protocol PRN Reason: abd. pain and cramping Last Admin: 08/28/17 13:46 Dose: 10 mg Diphenhydramine HCl (Benadryl) 25 mg IVP Q4H PRN; Protocol PRN Reason: Allergy symptoms Last Admin: 08/29/17 06:53 Dose: 25 mg Docusate Sodium (Colace) 100 mg PO TID [facility] PRN Reason: Protocol Last Admin: 08/28/17 18:14 Dose: Not Given Folic Acid (Folic Acid) 1 mg PO DAILY [facility] PRN Reason: Protocol Last Admin: 08/28/17 10:13 Dose: 1 mg Home Med (Home Med) 1 unit PO DAILY [facility] Last Admin: 08/28/17 08:59 Dose: 1 unit Home Med (Home Med) 1 unit PO 0800 [facility] Last Admin: 08/28/17 08:31 Dose: 1 unit Levalbuterol HCl (Xopenex) 0.63 mg IH [id number] [facility] PRN Reason: Protocol Last Admin: 08/29/17 01:56 Dose: Not Given Levothyroxine Sodium (Synthroid) 25 mcg PO 0600 [facility] PRN Reason: Protocol Last Admin: 08/29/17 05:46 Dose: 25 mcg Lidocaine (Lidoderm) 2 ea TD DAILY [facility] PRN Reason: Protocol Last Admin: 08/28/17 10:12 Dose: Not Given Metoclopramide HCl (Reglan) 5 mg PO 0630,1200,1700,2200 [facility] PRN Reason: Protocol Last Admin: 08/29/17 05:46 Dose: 5 mg Metoprolol Tartrate (Lopressor) 50 mg PO 0800,1800 [facility] PRN Reason: Protocol Last Admin: 08/28/17 18:18 Dose: 50 mg Mirtazapine (Remeron) 30 mg PO HS [facility] PRN Reason: Protocol Last Admin: 08/28/17 21:49 Dose: 30 mg Multivitamins (Thera Tab) 1 tab PO DAILY [facility] PRN Reason: Protocol Last Admin: 08/28/17 10:15 Dose: 1 tab Mupirocin (Bactroban Ointment) 1 gm TOP TID [facility] PRN Reason: Protocol Last Admin: 08/28/17 18:13 Dose: 1 applic [id number] Ethyl Esters (Lovaza) 1 gm PO BID [facility] PRN Reason: Protocol Last Admin: 08/28/17 10:14 Dose: 1 gm Ondansetron HCl (Zofran Inj) 4 mg IVP Q4H PRN; Protocol PRN Reason: Nausea/Vomiting Last Admin: 08/23/17 12:38 Dose: 4 mg Pantoprazole Sodium (Protonix Ec Tab) 40 mg PO 0630,2000 [facility] PRN Reason: Protocol Last Admin: 08/29/17 06:53 Dose: 40 mg Polyethylene Glycol (Miralax) 17 gm PO BID [facility] PRN Reason: Protocol Last Admin: 08/28/17 18:19 Dose: Not Given Ritonavir (Norvir) 100 mg PO 0800 [facility] PRN Reason: Protocol Last Admin: 08/28/17 08:57 Dose: 100 mg - Labs Labs: 08/28/17 14:25 08/28/17 14:25 - Constitutional Appears: No Acute Distress - Head Exam Head Exam: ATRAUMATIC, NORMOCEPHALIC - Respiratory Exam Respiratory Exam: Clear to Ausculation Bilateral, NORMAL BREATHING PATTERN - Cardiovascular Exam Cardiovascular Exam: +S1, +S2 - GI/Abdominal Exam GI & Abdominal Exam: Soft, Normal Bowel Sounds. absent: Tenderness - Extremities Exam Extremities Exam: Normal Inspection - Neurological Exam Neurological Exam: Alert, Awake, Oriented x3 Assessment and Plan - Assessment and Plan (Free Text) Assessment: SIRS secondary to acute pancreatitis chronic systolic heart failure Coronary artery disease HIV HTN Plan: Patient is feeling good today. She will continue physical therapy today. She will continue all of her medications and plan is for her to go home tomorrow. She is on dialysis three times a week as per nephrology.
[2017-08-29] MEDS: DARUNAVIR 800 MG PO SCH (08:15)
[2017-08-29] MEDS: Atovaquone 750 mg/5 ml Susp UD PO SCH ×2 (08:17→17:27)
[2017-08-29] MEDS: Lidocaine 5% Patch TD SCH (10:32)
[2017-08-29] MEDS: Omega-3-Acid Ethyl Esters 1 GM Cap PO SCH ×2 (10:33→17:26)
[2017-08-29] MEDS: POLYETHYLENE GLYCOL 3350 17 GM/Dose PACKET PO SCH ×2 (10:33→17:28)
[2017-08-29] MEDS: Multivitamin Therapeutic Tab PO SCH (10:35)
[2017-08-29 18:06] VITALS: TEMP 97.6; O2SAT 100
[2017-08-30] MEDS: Acetylcysteine 20% Inhal Soln (4ml) IH SCH ×2 (01:38→07:26)
[2017-08-30] MEDS: Levalbuterol 0.63 MG/3 ML Inhal Soln UD IH SCH ×2 (01:38→07:26)
[2017-08-30] MEDS: DiphenhydrAMINE 50 mg/ml Inj IVP PRN ×2 (04:29→10:38)
[2017-08-30] MEDS: Levothyroxine 25 MCG TAB PO SCH (06:10)
[2017-08-30] MEDS: Pantoprazole 40 mg EC Tab PO SCH (06:10)
[2017-08-30] MEDS: Lidocaine 5% Patch TD SCH (10:23)
[2017-08-30] MEDS: Multivitamin Therapeutic Tab PO SCH (10:27)
[2017-08-30] MEDS: Omega-3-Acid Ethyl Esters 1 GM Cap PO SCH (10:27)
[2017-08-30] MEDS: Atovaquone 750 mg/5 ml Susp UD PO SCH (10:27)
[2017-08-30] MEDS: POLYETHYLENE GLYCOL 3350 17 GM/Dose PACKET PO SCH (10:28)
[2017-08-30] MEDS: DARUNAVIR 800 MG PO SCH (10:32)
[2017-08-30 10:36] VITALS: BP 115/84; PULSE 80
--- NOTE | 2017-08-30 12:17 | CP.PCM.PN ---
Subjective - Date & Time of Evaluation Date of Evaluation: 08/30/17 Time of Evaluation: 12:00 - Subjective Subjective: No fevers, not in distress. Objective - Vital Signs/Intake and Output Vital Signs (last 24 hours): Temp Pulse Resp BP Pulse Ox 97.6 F 80 20 115/84 100 08/29/17 18:05 08/30/17 10:25 08/29/17 18:05 08/30/17 10:25 08/29/17 18:05 - Medications Medications: Current Medications Acetaminophen (Tylenol 325mg Tab) 650 mg PO Q4H PRN; Protocol PRN Reason: Fever >100.4 F Acetylcysteine (Acetylcysteine 20%) 4 ml IH [id number] [facility] Last Admin: 08/30/17 07:26 Dose: Not Given Aspirin (Ecotrin) 81 mg PO 0800 [facility] PRN Reason: Protocol Last Admin: 08/30/17 10:28 Dose: 81 mg Atorvastatin Calcium (Lipitor) 20 mg PO DIN [facility] PRN Reason: Protocol Last Admin: 08/29/17 17:25 Dose: 20 mg Atovaquone (Mepron) 750 mg PO 0800,1800 [facility] PRN Reason: Protocol Last Admin: 08/30/17 10:27 Dose: 750 mg Clonazepam (Klonopin) 0.5 mg PO HS [facility] PRN Reason: Protocol Last Admin: 08/29/17 21:57 Dose: 0.5 mg Clopidogrel Bisulfate (Plavix) 75 mg PO DAILY [facility] PRN Reason: Protocol Last Admin: 08/30/17 10:27 Dose: 75 mg Clotrimazole (Mycelex Tejal) 10 mg MT 5XD [facility] PRN Reason: Protocol Last Admin: 08/30/17 10:28 Dose: 10 mg Dicyclomine HCl (Bentyl) 10 mg PO Q8H PRN; Protocol PRN Reason: abd. pain and cramping Last Admin: 08/30/17 10:24 Dose: 10 mg Diphenhydramine HCl (Benadryl) 25 mg IVP Q4H PRN; Protocol PRN Reason: Allergy symptoms Last Admin: 08/30/17 10:38 Dose: 25 mg Docusate Sodium (Colace) 100 mg PO TID [facility] PRN Reason: Protocol Last Admin: 08/30/17 10:28 Dose: Not Given Folic Acid (Folic Acid) 1 mg PO DAILY [facility] PRN Reason: Protocol Last Admin: 08/30/17 10:28 Dose: 1 mg Home Med (Home Med) 1 unit PO DAILY [facility] Last Admin: 08/30/17 10:23 Dose: 1 unit Home Med (Home Med) 1 unit PO 0800 [facility] Last Admin: 08/30/17 10:32 Dose: 1 unit Levalbuterol HCl (Xopenex) 0.63 mg IH [id number] [facility] PRN Reason: Protocol Last Admin: 08/30/17 07:26 Dose: Not Given Levothyroxine Sodium (Synthroid) 25 mcg PO 0600 [facility] PRN Reason: Protocol Last Admin: 08/30/17 06:10 Dose: Not Given Lidocaine (Lidoderm) 2 ea TD DAILY [facility] PRN Reason: Protocol Last Admin: 08/30/17 10:23 Dose: Not Given Metoclopramide HCl (Reglan) 5 mg PO 0630,1200,1700,2200 [facility] PRN Reason: Protocol Last Admin: 08/30/17 06:10 Dose: Not Given Metoprolol Tartrate (Lopressor) 50 mg PO 0800,1800 [facility] PRN Reason: Protocol Last Admin: 08/30/17 10:25 Dose: 50 mg Mirtazapine (Remeron) 30 mg PO HS [facility] PRN Reason: Protocol Last Admin: 08/29/17 21:58 Dose: 30 mg Multivitamins (Thera Tab) 1 tab PO DAILY [facility] PRN Reason: Protocol Last Admin: 08/30/17 10:27 Dose: 1 tab Mupirocin (Bactroban Ointment) 1 gm TOP TID [facility] PRN Reason: Protocol Last Admin: 08/30/17 10:39 Dose: 1 applic [id number]-[id number] Ethyl Esters (Lovaza) 1 gm PO BID [facility] PRN Reason: Protocol Last Admin: 08/30/17 10:27 Dose: 1 gm Ondansetron HCl (Zofran Inj) 4 mg IVP Q4H PRN; Protocol PRN Reason: Nausea/Vomiting Last Admin: 08/23/17 12:38 Dose: 4 mg Pantoprazole Sodium (Protonix Ec Tab) 40 mg PO 0630,2000 [facility] PRN Reason: Protocol Last Admin: 08/30/17 06:10 Dose: Not Given Polyethylene Glycol (Miralax) 17 gm PO BID [facility] PRN Reason: Protocol Last Admin: 08/30/17 10:28 Dose: Not Given Ritonavir (Norvir) 100 mg PO 0800 [facility] PRN Reason: Protocol Last Admin: 08/30/17 10:26 Dose: 100 mg - Labs Labs: 08/28/17 14:25 08/28/17 14:25 - Constitutional Appears: Chronically Ill - Head Exam Head Exam: NORMAL INSPECTION - Respiratory Exam Respiratory Exam: Decreased Breath Sounds - Cardiovascular Exam Cardiovascular Exam: +S1, +S2 - GI/Abdominal Exam GI & Abdominal Exam: Soft. absent: Tenderness Assessment and Plan - Assessment and Plan (Free Text) Plan: Assessment S/P systemic inflammatory response syndrome, consider due to acute pancreatitis related to hypertriglyceridemia S/P oral candidiasis history of Cony esophagitis with oral candidiasis HIV and AIDS, non-compliant with ART, last CD4 count 66 in august 2017 history of Cdiff associated diarrhea history of left upper lobe HCAP erosive gastritis HTN chronic renal failure on hemodialysis coronary artery disease history of UTI history of esophageal ulcer S/P cholecystecomty Plan continue ART and PJP Prophylaxis will continue to monitor clinically off antibiotics since she is at risk for infections patient to follow up with Dr. Rodriguez for her HIV and AIDS as an outpatient
--- NOTE | 2017-08-30 13:28 | PN ---
DATE: 08/30/2017 LOCATION: The patient is in Transitional Care Unit, 320, bed 1. SUBJECTIVE: The patient is a 57-year-old female. She was admitted with chest pain, coronary artery disease. The patient also has history of hypertension. The patient's past history is significant in that she is on renal dialysis 3 times a week. The patient also has treatment for depression. The patient has history of esophagitis. The patient also had treatment for HIV status. MEDICATIONS: The patient's list of medications consist of respiratory treatment, the patient gets Benadryl. The patient is on Bentyl 10 mg p.r.n. for abdominal cramps. The patient is on aspirin 81 mg daily, folic acid 1 mg daily. The patient is on Ativan 0.5 mg at night, Lipitor 20 mg daily, metoprolol 50 mg daily, Lovaza, fish oil for coronary artery disease. The patient is on Mepron 750 mg twice a day. The patient is on clotrimazole, Mycelex Tejal . The patient is on Norvir 100 mg p.o. daily. The patient is on Plavix 75 mg daily, pantoprazole 40 mg daily, Reglan 5 mg p.o. every 6 hours p.r.n. for reflux. The patient is on Remeron 30 mg at bedtime, Synthroid 25 mcg daily. The patient gets Zofran p.r.n. also for nausea. PHYSICAL EXAMINATION: VITAL SIGNS: Today, the pulse is 70, blood pressure is 155/97, respirations are 16. The patient is in dialysis, receiving dialysis. When I visited the patient, the patient is comfortable. She will be agreeable to go home and she will have medications, the only request is a sleeping pill and an anxiety pill. Rest of medications the patient has at home. The patient's clinical condition, she is ambulatory. The patient needs continued care for dialysis. The patient will also followed up to treat for HIV and depression. Her condition is stable clinically. Overall prognosis is guarded. Jung Newton MD
--- NOTE | 2017-08-30 16:19 | PN ---
DATE: 08/30/2017 SUBJECTIVE: The patient is seen in the hallway. She is awake. She is alert. She is comfortable. She had dialysis early this morning. PHYSICAL EXAMINATION: GENERAL: Middle-aged lady sitting in chair. VITAL SIGNS: Blood pressure 115/84, heart rate 80, respiratory rate 18, temperature 97.6. HEENT: Normocephalic, atraumatic, positive pallor. NECK: Supple, no JVD. LUNGS: Bilateral equal air entry, no rales. EXTREMITIES: No lower extremity edema. INTAKE AND OUTPUT: Not charted. LABORATORY DATA: No new labs. ASSESSMENT AND PLAN: 1. Stable dialysis early this morning. 2. Status post pneumonia. 3. Hypertension, well controlled. 4. Human immunodeficiency virus. No objection to discharge. Meryl Shukla MD
== END 2017-08-30 13:23 | disposition home or self-care (01) | DRG 291 ==
LOC: TRCU 14:29
PROVIDERS: ADMIT Internal Medicine; ATTEND Internal Medicine
PROC: F08Z0ZZ Bathing/Showering Techniques Treatment (ICD-10-PCS; 2017-08-22)
PROC: F08Z1ZZ Dressing Techniques Treatment (ICD-10-PCS; 2017-08-22)
PROC: F08Z2ZZ Grooming/Personal Hygiene Treatment (ICD-10-PCS; 2017-08-22)
PROC: F08Z4ZZ Home Management Treatment (ICD-10-PCS; 2017-08-22)
PROC: F07Z9FZ Gait Training/Functional Ambulation Treatment using Assistive, Adaptive, Supportive or Protective Equipment (ICD-10-PCS; principal; 2017-08-23)
PROC: F07M6ZZ Therapeutic Exercise Treatment of Musculoskeletal System - Whole Body (ICD-10-PCS; 2017-08-23)
DX: I13.2 Hypertensive heart and chronic kidney disease with heart failure and with stage 5 chronic kidney disease, or end stage renal disease (principal); I50.23 Acute on chronic systolic (congestive) heart failure; J18.9 Pneumonia, unspecified organism; K85.90 Acute pancreatitis without necrosis or infection, unspecified; N18.6 End stage renal disease; B37.0 Candidal stomatitis; B37.81 Candidal esophagitis; D61.818 Other pancytopenia; I31.3 Pericardial effusion (noninflammatory); J98.11 Atelectasis; K22.10 Ulcer of esophagus without bleeding; N25.81 Secondary hyperparathyroidism of renal origin; R18.8 Other ascites; I25.110 Atherosclerotic heart disease of native coronary artery with unstable angina pectoris; I25.2 Old myocardial infarction; I25.5 Ischemic cardiomyopathy; Z21 Asymptomatic human immunodeficiency virus [HIV] infection status; D63.1 Anemia in chronic kidney disease; E03.9 Hypothyroidism, unspecified; E55.9 Vitamin D deficiency, unspecified; E78.00 Pure hypercholesterolemia, unspecified; E78.1 Pure hyperglyceridemia; E78.5 Hyperlipidemia, unspecified; F32.9 Major depressive disorder, single episode, unspecified; F41.9 Anxiety disorder, unspecified; G47.00 Insomnia, unspecified; G89.29 Other chronic pain; I08.1 Rheumatic disorders of both mitral and tricuspid valves; I27.21 Secondary pulmonary arterial hypertension; I42.0 Dilated cardiomyopathy; K21.9 Gastro-esophageal reflux disease without esophagitis; K29.60 Other gastritis without bleeding; K31.84 Gastroparesis; K44.9 Diaphragmatic hernia without obstruction or gangrene; K59.03 Drug induced constipation; K59.09 Other constipation; M47.814 Spondylosis without myelopathy or radiculopathy, thoracic region; R09.02 Hypoxemia; T40.605A Adverse effect of unspecified narcotics, initial encounter; Y95 Nosocomial condition; Z76.5 Malingerer [conscious simulation]; Z87.01 Personal history of pneumonia (recurrent); Z87.19 Personal history of other diseases of the digestive system; Z87.440 Personal history of urinary (tract) infections; Z87.891 Personal history of nicotine dependence; Z88.8 Allergy status to other drugs, medicaments and biological substances; Z90.49 Acquired absence of other specified parts of digestive tract; Z91.14 Patient's other noncompliance with medication regimen; Z91.19 Patient's noncompliance with other medical treatment and regimen; Z95.5 Presence of coronary angioplasty implant and graft; Z99.2 Dependence on renal dialysis

== ENCOUNTER 2017-09-22 14:57 | Inpatient (IN) | payer MEDICARE, OTHER ==
[2017-09-22 15:16] VITALS: BMI 21.7
[2017-09-22] MEDS ORDERED: Nitroglycerin 2% Ointment Foilpak UD TOP STA (15:27)
[2017-09-22] MEDS ORDERED: Morphine 2 mg/ml ISec IVP STA (15:27)
[2017-09-22] MEDS ORDERED: Morphine 4 mg/ml ISec IVP STA (15:37)
--- NOTE | 2017-09-22 15:39 | ED PDOC ---
Arrival/HPI - General Chief Complaint: Shortness Of Breath Time Seen by Provider: 09/22/17 15:15 Historian: Patient - History of Present Illness Narrative History of Present Illness (Text): 09/22/17 15:30 A 57 year old female, whose past medical history includes HIV, HTN, CAD on Plavix, pancreatitis, ESRD on HD, and chronic systolic heart failure, presents to the emergency department with a complaint of sudden onset shortness of breath at 2:30 am. Patient states that she awoke from bed feeling mildly diaphoretic and experiencing chest discomfort. She notes that she has experienced these symptoms in the past. The patient states that she is concerned that her symptoms are related to fluid overload. She states that she could not come in initially because she has 2 grandchildren under her custody. She states that her chest pain is greater than 10 out of 10 and describes it as left sided, sub-sternal discomfort. She notes that she felt weak, dizzy, lightheaded, and experienced 1 episode of vomiting with intermittent nausea. She states that she received her last dialysis 2 days ago. She states that she has not missed any dialysis treatments. She arrived to the emergency department today for further evaluation. The patient denies fevers, chills, headache, cough , abdominal pain, diarrhea, back pain, neck pain, urinary/bowel changes, or any other complaint. pt is here for further eval pt's without other complaints PMD: Dr. Rubalcava Plug Making Operator: Dr. Tran National Park Ranger: Dr. Cardoso Time/Duration: Other (2:30 AM) Symptom Onset: Sudden Symptom Course: Unchanged Activities at Onset: Rest, Light Context: Home Past Medical History - Provider Review Nursing Documentation Reviewed: Yes - Travel History Have you recently traveled outside [place] w/in the past 3 mons?: No - Past History Past History: No Previous - Infectious Disease Hx of Infectious Diseases: None - Tetanus Immunization Tetanus Immunization: Unknown - Reproductive Menopause: Yes Currently : No - Cardiac Hx Cardiac Disorders: Yes (CAD (on Plavix)) - Pulmonary Hx Asthma: No Hx Bronchitis: No Hx Chronic Obstructive Pulmonary Disease (COPD): No Hx Emphysema: No Hx Pneumonia: Yes Hx Sleep Apnea: No - Neurological Hx Alzheimer's Disease: No Hx Dementia: No Hx Migraine: Yes Hx Parkinson's Disease: No Hx Seizures: No Hx Transient Ischemic Attacks (TIA): No - HEENT Hx HEENT Disorder: No - Renal Hx Renal Failure: Yes (ESRD/ on Hemo 3x/wk) - Endocrine/Metabolic Hx Hypothyroidism: Yes - Hematological/Oncological Hx Anemia: Yes Hx Sickle Cell Disease: No - Integumentary Hx Dermatological Disorder: Yes (generalized body itch on and off) - Musculoskeletal/Rheumatological Hx Arthritis: No Hx Falls: No Hx Fractures: Yes (r ft fx) - Gastrointestinal Hx Gall Bladder Disease: Yes Hx Pancreatitis: Yes - Genitourinary/Gynecological Hx Reproductive Disorders: No - Psychiatric Hx Substance Use: Yes - Surgical History Hx Appendectomy: Yes Hx Cholecystectomy: Yes Hx Coronary Stent: Yes - Anesthesia Hx Anesthesia: Yes Hx Anesthesia Reactions: No Hx Malignant Hyperthermia: No - Suicidal Assessment Feels Threatened In Home Enviroment: No Family/Social History - Physician Review Nursing Documentation Reviewed: Yes Family/Social History: No Known Family HX Smoking Status: Never Smoked Hx Alcohol Use: No Hx Substance Use: Yes Substance used: oxycodone and marijuana Hx Substance Use Treatment: No Allergies/Home Meds Allergies/Adverse Reactions: Allergies MAVIS Inhibitors Allergy (Verified 08/22/17 20:20) SWELLING Home Medications: Home Meds Medication Instructions Recorded Confirmed Abacavir [Ziagen] 1 tab PO BID 09/22/17 09/22/17 Calcium Acetate [Phoslo] 2 cap PO TID 09/22/17 09/22/17 Cyanocobalamin [Vitamin B12 1000 1 vial IM Q30D 09/22/17 09/22/17 mcg/ml Inj] Darunavir [Prezista] 1 tab PO HS 09/22/17 09/22/17 Dolutegravir Sodium [Tivicay] 1 tab PO DAILY 09/22/17 09/22/17 Ergocalciferol [Drisdol 50,000 1 cap PO Q7D 09/22/17 09/22/17 Intl Units Cap] Lamivudine [Lamivudine] 1 tab PO DAILY 09/22/17 09/22/17 Levothyroxine [Synthroid] 1 tab PO DAILY 09/22/17 09/22/17 Linaclotide [Linzess] 1 cap PO DAILY 09/22/17 09/22/17 Paricalcitol [Zemplar] 1 cap PO DAILY 09/22/17 09/22/17 Risedronate Sodium [Actonel] 1 tab PO Q7D 09/22/17 09/22/17 Rosuvastatin Calcium [Crestor] 1 tab PO HS 09/22/17 09/22/17 hydrOXYzine Pamoate [Vistaril] 1 cap PO BID 09/22/17 09/22/17 Review of Systems - Physician Review All systems were reviewed & negative as marked: Yes - Review of Systems Constitutional: absent: Fevers, Night Sweats Respiratory: SOB Cardiovascular: Chest Pain Gastrointestinal: Nausea, Vomiting. absent: Abdominal Pain, Stool Changes, Diarrhea Genitourinary Female: absent: Urine Output Changes Musculoskeletal: absent: Back Pain, Neck Pain Skin: Normal Neurological: Dizziness. absent: Headache Endocrine: Diaphoresis Hemo/Lymphatic: Normal Psychiatric: Normal Physical Exam - Physical Exam Narrative Physical Exam (Text): 09/22/17 15:43 General: alert/awake, GCS = 15, oriented x 3, resting in bed, uncomfortable, cooperative, interactive; mild distress due to pain Head: NC/AT; mild bi-temporal wasting EYE: PERRLA, EOMI, sclera anicteric, no nystagmus, no photophobia Facial: WNL Oral: uvula/tongue are midline, no exudate/lesions, no drooling/stridor, no dysphonia; fair dentitions NECK: intact ROM, no midline tenderness, no nuchal rigidity, no meningeal signs ; no step off Chest: Decreased breath sound bilaterally. Questionable rales detected in the bibasilar left region. Faint wheezing. No rhonchi. Mild Tachypnea. No accessory muscle use. + left chest wall tenderness on exam, no crepitus Cardiac: +S1, +S2, no m/r/r, + tachycardia Abdominal: +BS, soft/nd/nt, well nourished patient; no masses/rebound/guarding/ rigidity; no jordan's sign, no mcburney's point tenderness Extremities: intact ROM, strength 5/5 grossly intact in all limbs, neurovasc intact b/l; + ambulatory; reflex +2/2; no pitting edema noted b/l, no joann's sign noted b/l BACK: no step off, no midline tenderness, NO crepitus, no gross deformities noted; Intact ROM SKIN: cap refill < 1 sec, no ulcerations, no petechiae, no rashes; mild pallor NEURO: CNII-XII WNL, no facial asymmetries, no slurr speech, oriented x 3 NIH stroke scale ~ 0 Psych: normal insight, normal affect; follows command with ease Vital Signs Reviewed: Yes Vital Signs Temp Pulse Resp BP BP Pulse Ox 09/22/17 20:18 92 H 20 151/90 H 100 18 18:58 102 H 18 141/86 100 09/22/17 18:04 120 H 153/93 H 09/22/17 17:39 122 H 18 153/106 H 100 09/22/17 17:22 122 H 18 168/84 H 100 09/22/17 16:00 23 171/90 H 100 09/22/17 15:10 98.2 F 106 H 18 170/92 H 100 Temperature: Afebrile Blood Pressure: Hypertensive Pulse: Tachycardic Respiratory Rate: Normal Appearance: Positive for: Well-Appearing, Non-Toxic, Uncomfortable, Other (aert/ awake, resting in bed, uncomfortable, NAD, cooperative) Pain Distress: Mild (due to pain) Mental Status: Positive for: Alert and Oriented X 3 - Systems Exam Head: Present: Atraumatic, Normocephalic Medical Decision Making ED Course and Treatment: 09/22/17 15:44 Impression: A 57 year old female presents to the emergency department for a complaint of shortness of breath, chest discomfort, nausea, vomiting, dizziness, and weakness. r/o chf, r/o acs, likely chronic disease; ESRD Plan: -- EKG -- Chest X-ray -- Duoneb, Aspirin, Morphine, and Nitroglycerin -- Labs -- Reassess and disposition Progress Notes: pt vomited while in the Emergency department 09/22/17 16:07: Case discussed in detail with Dr. Rubalcava who was made aware. He states that he does not want the patient to receive any narcotics for her pain. He disapproved of the first dose that was provided for the patient in the emergency department to control her pain. Will continue to monitor the patient . 09/22/17 17:40: Case discussed in detail with Dr. Rubalcava who was made aware and agrees with emergency department management. Would like to get control of patient's heart rate with beta blockers. Will continue NO narcotics for pt's pain. 09/22/17 17:40: Case discussed in detail with medical records supervisor who agrees to see the patient. 09/22/17 1800 pt is made aware of her medical results pt agrees with admission Re-evaluation Time: 19:00 Reassessment Condition: Improving,but remains with symptoms - Lab Interpretations Lab Results: 09/22/17 16:05 09/22/17 16:05 Lab Results 09/22/17 16:05: pO2 140 H, VBG pH 7.49 H, VBG pCO2 40.0, VBG HCO3 30.5 H, VBG Total CO2 31.7 H, VBG O2 Sat (Calc) 98.9 H, VBG Base Excess 6.6 H, VBG Potassium 5.3 H, Sodium 137.0, Chloride 101.0, Glucose 107 H, Lactate 1.8, FiO2 21.0, Venous Blood Potassium 5.3 H 09/22/17 16:05: PT 12.8 H, INR 1.12 H, APTT 23.4 L 09/22/17 16:05: WBC 9.5 D, RBC 2.96 L, Hgb 9.7 L, Hct 30.3 L, MCV 102.4 D, MCH 32.8, MCHC 32.0, RDW 17.3 H, Plt Count 229, MPV 10.1, Gran % 69.3 H, Lymph % (Auto) 21.6 L, [place] % (Auto) 8.1 H, Eos % (Auto) 0.6 L, Baso % (Auto) 0.4, Gran # 6.59 H, Lymph # (Auto) 2.1, [place] # (Auto) 0.8 H, Eos # (Auto) 0.1, Baso # (Auto) 0.04 09/22/17 16:05: Sodium 143, Chloride 97 L, Potassium 5.5 H, Carbon Dioxide 26, Anion Gap 26 H, BUN 52 H, Creatinine 10.0 H*, Est GFR ( Amer) 5, Est GFR (Non-Af Amer) 4, Random Glucose 107, Calcium 9.8, Total Bilirubin 0.7, AST 25, ALT 20, Alkaline Phosphatase 100, Troponin I 0.03, NT-Pro-B Natriuret Pep 023395 H, Total Protein 8.7 H, Albumin 4.2, Globulin 4.5, Albumin/Globulin Ratio 0.9 L 09/22/17 16:00: Total Creatine Kinase 45, Lipase 334 H I have reviewed the lab results: Yes Interpretation: Abnormal lab values (abnl bun/creat; ESRD) - RAD Interpretation Narrative RAD Interpretations (Text): 09/22/17 17:37 Chest X-ray Dictator : Kp Clark MD Report Date : 09/22/2017 17:18:11 IMPRESSION: CHF superimposed upon alveolar consolidative changes seen on the prior study 08/18/2017 with modest interval improvement. Radiology Orders: 09/22/17 15:26 CHEST PORTABLE [RAD] Stat Continuous Improvement Black Belt: Radiologist - EKG Interpretation EKG Interpretation (Text): 09/22/17 19:00 Sinus tach at 105 bpm, normal axis, no ectopy, ? prolonged QT, no st-t changes noted, ABNL EKG; unchanged compare with old ekg 09/2017 Interpreted by ED Physician: Yes Type: 12 lead EKG Comparison: Similar to previous EKG - Medication Orders Current Medication Orders: Acetaminophen (Tylenol 325mg Tab) 650 mg PO Q6 PRN PRN Reason: TEMP>=99.5F Acetaminophen (Tylenol 650 Mg Supp) 650 mg RC Q6H PRN PRN Reason: TEMP>=99.5F Acetylcysteine (Acetylcysteine 20%) 4 ml IH [id number] [facility] Last Admin: 09/22/17 20:08 Dose: 4 ml Aspirin (Ecotrin) 81 mg PO 0800 [facility] Atorvastatin Calcium (Lipitor) 80 mg PO HS [facility] Last Admin: 09/22/17 21:57 Dose: 80 mg Clopidogrel Bisulfate (Plavix) 75 mg PO DAILY [facility] Docusate Sodium (Colace) 100 mg PO TID [facility] Last Admin: 09/22/17 19:16 Dose: Not Given Non-Admin Reason: Patient Refused Ergocalciferol (Drisdol 50,000 Intl Units Cap) 1 cap PO Q7D [facility] Last Admin: 09/22/17 19:47 Dose: Not Given Non-Admin Reason: Patient Refused Folic Acid (Folic Acid) 1 mg PO DAILY [facility] Hydroxyzine HCl (Atarax) 25 mg PO BID PRN PRN Reason: Anxiety Levalbuterol HCl (Xopenex) 0.63 mg IH [id number] [facility] Levothyroxine Sodium (Synthroid) 25 mcg PO 0600 [facility] Lidocaine (Lidoderm) 2 ea TD DAILY [facility] Lidocaine (Lidocaine 5%) 0 gm TOP DAILY [facility] Metoclopramide HCl (Reglan) 5 mg IVP ACHS [facility] Last Admin: 09/22/17 21:58 Dose: 5 mg IVP Administration Document 09/22/17 21:58 KTB (Rec: 09/22/17 21:59 KTB [id number]) Charges for Administration # of IVP Administrations 1 Metoprolol Tartrate (Lopressor) 50 mg PO 0800,1800 [facility] Last Admin: 09/22/17 19:15 Dose: Multivitamins (Thera Tab) 1 tab PO DAILY [facility] Darunavir [Prezista] 1 tab PO HS [facility] Non-Formulary Medication (Linaclotide [Linzess]) 1 cap PO DAILY [facility] Paricalcitol [ (Zemplar]) 1 cap PO DAILY [facility] Non-Formulary Medication (Risedronate Sodium [Actonel]) 1 tab PO Q7D [facility] Non-Formulary Medication (Calcium Acetate [Phoslo]) 1,334 cap PO TID [facility] Nwnmo-2-Eajo Ethyl Esters (Lovaza) 1 gm PO BID [facility] Last Admin: 09/22/17 19:37 Dose: Not Given Non-Admin Reason: Patient Refused Ondansetron HCl (Zofran Inj) 4 mg IVP Q4H PRN PRN Reason: Nausea/Vomiting Pantoprazole Sodium (Protonix Inj) 40 mg IVP DAILY [facility] Polyethylene Glycol (Miralax) 17 gm PO BID [facility] Last Admin: 09/22/17 22:00 Dose: Not Given Non-Admin Reason: Patient Refused Discontinued Medications Albuterol/Ipratropium (Duoneb 3 Mg/0.5 Mg (3 Ml) Ud) 3 ml IH Q15M [facility] Stop: 09/22/17 16:01 Last Admin: 09/22/17 16:43 Dose: 3 ml Aspirin (Aspirin) 325 mg PO STAT ST[facility] Stop: 09/22/17 15:28 Last Admin: 09/22/17 16:08 Dose: 325 mg Diphenhydramine HCl (Benadryl) 25 mg IVP STAT ST[facility] Stop: 09/22/17 16:25 Last Admin: 09/22/17 16:37 Dose: 25 mg IVP Administration Document 09/22/17 16:37 MOJGAN (Rec: 09/22/17 16:37 MOJGAN [id number]) Charges for Administration # of IVP Administrations 1 Metoprolol Tartrate (Lopressor) 5 mg IVP STAT STA Stop: 09/22/17 17:48 Last Admin: 09/22/17 18:04 Dose: 5 mg IVP Administration Document 09/22/17 18:04 MOJGAN (Rec: 09/22/17 18:04 MOJGAN [id number]) Charges for Administration # of IVP Administrations 1 [facility] Pulse and Blood Pressure Document 09/22/17 18:04 MOJGAN (Rec: 09/22/17 18:04 MOJGAN [id number]) Pulse Pulse Rate (60-90) 120 Blood Pressure Blood Pressure (100/60-150/90) 153/93 Morphine Sulfate (Morphine) 4 mg IVP STAT STA Stop: 09/22/17 15:38 Last Admin: 09/22/17 16:08 Dose: 4 mg MAR Pain Assessment Document 09/22/17 16:08 MOJGAN (Rec: 09/22/17 16:08 MOJGAN [id number]) Pain Reassessment Is this a pain reassessment? Yes Presence of Pain Presence of Pain Yes Pain Scale Used Pain Scale Used Numeric Location Pain Location Body Site Chest Description Description Sharp Intensity of Pain at present 8 IVP Administration Document 09/22/17 16:08 MOJGAN (Rec: 09/22/17 16:[id number]) Charges for Administration # of IVP Administrations 1 Re-Assess: MAR Pain Assessment Document 09/22/17 17:08 MOJGAN (Rec: 09/22/17 19:46 MOJGAN [id number]) Pain Reassessment Is this a pain reassessment? Yes Presence of Pain Presence of Pain Yes Pain Scale Used Pain Scale Used Numeric Location Pain Location Body Site Chest Description Intensity of Pain at present 6 Nitroglycerin (Nitro-Bid 2% Oint) 1 ea TOP STAT STA Stop: 09/22/17 15:28 Last Admin: 09/22/17 16:07 Dose: 1 ea Ondansetron HCl (Zofran Inj) 4 mg IVP STAT STA Stop: 09/22/17 16:25 Last Admin: 09/22/17 16:37 Dose: 4 mg IVP Administration Document 09/22/17 16:37 MOJGAN (Rec: 09/22/17 16:37 MOJGAN [id number]) Charges for Administration # of IVP Administrations 1 Polyethylene Glycol (Miralax) 17 gm PO BID PRN PRN Reason: Constipation Sodium Polystyrene Sulfonate (Kayexalate Susp) 30 gm PO STAT STA Stop: 09/22/17 17:42 Last Admin: 09/22/17 18:04 Dose: 30 gm - Scribe Statement The provider has reviewed the documentation as recorded by the Yanet Tracy Provider Scribe Attestation: All medical record entries made by the Busteribcourtney were at my direction and personally dictated by me. I have reviewed the chart and agree that the record accurately reflects my personal performance of the history, physical exam, medical decision making, and the department course for this patient. I have also personally directed, reviewed, and agree with the discharge instructions and disposition. Disposition/Present on Arrival - Present on Arrival Any Indicators Present on Arrival: No History of DVT/PE: No History of Uncontrolled Diabetes: No Urinary Catheter: No History of Decub. Ulcer: No History Surgical Site Infection Following: None - Disposition Have Diagnosis and Disposition been Completed?: Yes Diagnosis: Shortness of breath, Chest pain, ESRD (end stage renal disease), Acute on chronic diastolic CHF (congestive heart failure), Intractable pain, Elevated blood pressure reading Disposition: HOSPITALIZED Disposition Time: 18:00 Patient Plan: Admission, Telemetry Condition: STABLE
[2017-09-22] MEDS: Albuterol-Ipratrop 3 mg / 0.5 (3 ml) UD IH SCH ×3 (16:08→16:43)
[2017-09-22 16:10] LABS: BASO # 0.04 K/mm3 (0.0-2.0); BASO % 0.4 % (0.0-3.0); EOS # 0.1 (0.0-0.7); EOS % 0.6 % (1.5-5.0); GRAN # 6.59 (1.4-6.5); GRAN % 69.3 % (50.0-68.0); HEMOGLOBIN 9.7 g/dL (12.0-16.0); LYMPH # 2.1 (1.2-3.4); LYMPH % 21.6 % (22.0-35.0); MEAN CELL VOLUME 102.4 fl (80.0-105.0); MEAN CORPUSCULAR HEMOGLOBIN 32.8 pg (25.0-35.0); MEAN PLATELET VOLUME 10.1 fl (7.0-11.0); MONO # 0.8 (0.1-0.6); MONO % 8.1 % (1.0-6.0); RBC 2.96 10^6/uL (3.5-6.1); RED CELL DISTRIBUTION WIDTH 17.3 % (11.5-14.5); WHITE BLOOD COUNT 9.5 10^3/ul (4.5-11.0)
[2017-09-22 16:11] LABS: VENOUS BLOOD GAS BASE EXCESS 6.6 mmol/L (0.0-2.0); VENOUS BLOOD GAS PO2 140 mm/Hg (30-55); VENOUS BLOOD PH 7.49 (7.32-7.43)
[2017-09-22 16:20] LABS: INR 1.12 (0.93-1.08); PARTIAL THROMBOPLASTIN TIME 23.4 Seconds (25.1-36.5); PROTHROMBIN TIME 12.8 SECONDS (9.4-12.5)
[2017-09-22] MEDS ORDERED: DiphenhydrAMINE 50 mg/ml Inj IVP STA (16:24)
[2017-09-22 16:32] LABS: TROPONIN I 0.03 ng/mL
[2017-09-22 16:38] LABS: ALB/GLOB RATIO 0.9 (1.1-1.8); ALBUMIN 4.2 g/dL (3.0-4.8); CALCIUM 9.8 mg/dL (8.4-10.5)
--- NOTE | 2017-09-22 17:02 | CP.PCM.HP ---
<Godfrey Sanford - Last Filed: 09/22/17 17:42> History of Present Illness - History of Present Illness History of Present Illness: H&P for Dr. Rubalcava's service - Wanda Sanford PGY2 HPI: Patient is a 57yo female with extensive history of ESRD on HD (T, Th, Fri) , HIV, [place], CAD s/p stent placement, medication non-compliance, chronic anemia that presented to [facility] [place] with c/o shortness of breath that started approximately 2: 30am on day of presentation. She reported that she was suddenly awoken from her sleep due to the shortness of breath which shortly thereafter progressed to left -sided chest pain that radiated to her left arm. She also reported suprapubic abdominal pain associated with bilious, non-blood vomiting. Patient states that prior to this episode she was in her usual state of health. Last dialysis session was on Friday where she had 2L of fluid removed. She attempted to use tramadol however no relief was provided and she decided to go to the ER. Denies palpitations, fever, chills, cough, focal weakness, numbness, tingling. 12point ROS as per HPI above otherwise negative PMHx: as stated above PSHx: x 4, cholecystectomy, bartholin cyst removal, lef AV sunt, mrcp 05/08/16 Allergies: Jamir Inhibitors Social Hx: tobacco use of 1ppd for 20 years, reportedly quit 20 years ago; denies alcohol and illicit drug use Family Hx: Multiple family members with Heart Disease and Diabetes PMD: Dr. Rubalcava Nephro: Dr. Cardoso GI: Dr. Snider Cardio: Dr. Tran Present on Admission - Present on Admission Any Indicators Present on Admission: No Past Patient History - Infectious Disease Hx of Infectious Diseases: None - Tetanus Immunizations Tetanus Immunization: Unknown - Past Medical History & Family History Past Medical History?: Yes - Past Social History Smoking Status: Never Smoked - CARDIAC Hx Cardiac Disorders: Yes (CAD (on Plavix)) - PULMONARY Hx Asthma: No Hx Bronchitis: No Hx Chronic Obstructive Pulmonary Disease (COPD): No Hx Emphysema: No Hx Pneumonia: Yes Hx Sleep Apnea: No - NEUROLOGICAL Hx Alzheimer's Disease: No Hx Dementia: No Hx Migraine: Yes Hx Parkinson's Disease: No Hx Seizures: No Hx Transient Ischemic Attacks (TIA): No - HEENT Hx HEENT Problems: No - RENAL Hx Renal Failure: Yes (ESRD/ on Hemo 3x/wk) - ENDOCRINE/METABOLIC Hx Hypothyroidism: Yes - HEMATOLOGICAL/ONCOLOGICAL Hx Anemia: Yes Hx Sickle Cell Disease: No - INTEGUMENTARY Hx Dermatological Problems: Yes (generalized body itch on and off) - MUSCULOSKELETAL/RHEUMATOLOGICAL Hx Arthritis: No Hx Falls: No Hx Fractures: Yes (r ft fx) - GASTROINTESTINAL Hx Gall Bladder Disease: Yes Hx Pancreatitis: Yes - GENITOURINARY/GYNECOLOGICAL Hx Reproductive Disorders: No - PSYCHIATRIC Hx Substance Use: Yes - SURGICAL HISTORY Hx Appendectomy: Yes Hx Cholecystectomy: Yes Hx Coronary Stent: Yes - ANESTHESIA Hx Anesthesia: Yes Hx Anesthesia Reactions: No Hx Malignant Hyperthermia: No Meds Allergies/Adverse Reactions: Allergies Allergy/AdvReac Type Severity Reaction Status Date / Time JAMIR Inhibitors Allergy SWELLING Verified 09/23/17 00:22 Physical Exam - Constitutional Appears: No Acute Distress, Chronically Ill - Head Exam Head Exam: ATRAUMATIC, NORMOCEPHALIC - Eye Exam Eye Exam: EOMI, PERRL - ENT Exam ENT Exam: Mucous Membranes Moist - Neck Exam Neck exam: Positive for: Normal Inspection - Respiratory Exam Respiratory Exam: Wheezes. absent: Clear to Auscultation Bilateral, Respiratory Distress Additional comments: wheezing and crackles bilaterally (L>R) - Cardiovascular Exam Cardiovascular Exam: Rubs, +S1, +S2, Systolic Murmur. absent: Gallop, JVD - GI/Abdominal Exam GI & Abdominal Exam: Distended, Soft, Tenderness. absent: Firm, Guarding Additional comments: tenderness to palpation notably in periumbilical region - Extremities Exam Extremities exam: Positive for: normal inspection. Negative for: pedal edema, tenderness - Neurological Exam Neurological exam: Alert, CN II-XII Intact, Oriented x3 - Psychiatric Exam Psychiatric exam: Normal Affect, Normal Mood - Skin Skin Exam: Dry, Intact, Normal Color, Warm Results - Vital Signs Recent Vital Signs: Last Vital Signs Temp 98.2 F 09/22/17 15:10 Pulse 106 H 09/22/17 15:10 Resp 23 09/22/17 16:00 BP 171/90 H 09/22/17 16:00 Pulse Ox 100 09/22/17 16:00 - Labs Result Diagrams: 09/22/17 16:05 09/22/17 16:05 Labs: Laboratory Results - last 24 hr 09/22/17 09/22/17 09/22/17 16:05 16:05 16:05 WBC 9.5 D RBC 2.96 L Hgb 9.7 L Hct 30.3 L MCV 102.4 D MCH 32.8 MCHC 32.0 RDW 17.3 H Plt Count 229 MPV 10.1 Gran % 69.3 H Lymph % (Auto) 21.6 L Ritchie % (Auto) 8.1 H Eos % (Auto) 0.6 L Baso % (Auto) 0.4 Gran # 6.59 H Lymph # (Auto) 2.1 Ritchie # (Auto) 0.8 H Eos # (Auto) 0.1 Baso # (Auto) 0.04 PT 12.8 H INR 1.12 H APTT 23.4 L pO2 VBG pH VBG pCO2 VBG HCO3 VBG Total CO2 VBG O2 Sat (Calc) VBG Base Excess VBG Potassium Sodium 143 Chloride 97 L Glucose Lactate FiO2 Potassium 5.5 H Carbon Dioxide 26 Anion Gap 26 H BUN 52 H Creatinine 10.0 H* Est GFR ( Amer) 5 Est GFR (Non-Af Amer) 4 Random Glucose 107 Calcium 9.8 Total Bilirubin 0.7 AST 25 ALT 20 Alkaline Phosphatase 100 Troponin I 0.03 Total Protein 8.7 H Albumin 4.2 Globulin 4.5 Albumin/Globulin Ratio 0.9 L Venous Blood Potassium 09/22/17 16:05 WBC RBC Hgb Hct MCV MCH MCHC RDW Plt Count MPV Gran % Lymph % (Auto) Ritchie % (Auto) Eos % (Auto) Baso % (Auto) Gran # Lymph # (Auto) Ritchie # (Auto) Eos # (Auto) Baso # (Auto) PT INR APTT pO2 140 H VBG pH 7.49 H VBG pCO2 40.0 VBG HCO3 30.5 H VBG Total CO2 31.7 H VBG O2 Sat (Calc) 98.9 H VBG Base Excess 6.6 H VBG Potassium 5.3 H Sodium 137.0 Chloride 101.0 Glucose 107 H Lactate 1.8 FiO2 21.0 Potassium Carbon Dioxide Anion Gap BUN Creatinine Est GFR ( Amer) Est GFR (Non-Af Amer) Random Glucose Calcium Total Bilirubin AST ALT Alkaline Phosphatase Troponin I Total Protein Albumin Globulin Albumin/Globulin Ratio Venous Blood Potassium 5.3 H Assessment & Plan - Assessment and Plan (Free Text) Plan: 57yo female with history of HIV, [place], CAD w/ stent placement, Medical non- compliance, ESRD on dialysis (T, Th, Sat), and chronic anemia presents w/ SOB in setting of chest pain and abd pain assoc with nausea/vomiting. 1. Chest pain r/o ACS -Serial troponin -EKG reviewed; repeat EKG in AM -CXR reviewed -Continue beta iban, ASA, plavix, lipitor -Avoid narcotics -Cardiolgy consulted - Dr. Tran -Telemetry monitoring 2. Hyperkalemia -Kayexalate ordered -EKG reviewed -Dialysis to be scheduled 3. Abdominal pain -Lipase pending -Zofran PRN for nausea/vomiting -GI Consulted - Dr. Snider 4. ESRD on HD -Nephrology consulted to setup patient for dialysis tomorrow -Last dialysis session on Friday with ~2L removed -Continue home medications 5. CAD -Continue beta iban, ASA, statin, plavix 6. Hx of hypothyroidism -Continue home synthroid 7. GI/DVT Prophlyaxis -Protonix/Heparin SC Patient seen and case discussed/reviewed with attending, Dr. Rubalcava <Ranjith Rubalcava U - Last Filed: 09/23/17 20:19> Results - Vital Signs Recent Vital Signs: Last Vital Signs Temp 98.4 F 09/23/17 17:19 Pulse 102 H 09/23/17 19:00 Resp 22 09/23/17 19:00 BP 151/82 H 09/23/17 19:00 Pulse Ox 99 09/23/17 08:24 - Labs Result Diagrams: 09/23/17 06:25 09/23/17 19:50 Labs: Laboratory Results - last 24 hr 09/22/17 09/23/17 09/23/17 23:20 06:25 06:25 WBC 11.3 H RBC 3.27 L Hgb 10.5 L Hct 33.5 L MCV 102.4 MCH 32.1 MCHC 31.3 RDW 17.4 H Plt Count 221 MPV 9.6 Gran % 70.8 H Lymph % (Auto) 23.4 Ritchie % (Auto) 5.1 Eos % (Auto) 0.4 L Baso % (Auto) 0.3 Gran # 7.98 H Lymph # (Auto) 2.6 Ritchie # (Auto) 0.6 Eos # (Auto) 0.1 Baso # (Auto) 0.03 Sodium 142 Potassium 6.1 H* Chloride 95 L Carbon Dioxide 27 Anion Gap 26 H BUN 57 H Creatinine 12.3 H* D Est GFR ( Amer) 4 Est GFR (Non-Af Amer) 3 POC Glucose (mg/dL) Random Glucose 120 H Calcium 9.4 Phosphorus Magnesium Total Bilirubin 0.6 AST 54 H D ALT 28 Alkaline Phosphatase 108 Troponin I 0.11 D 0.15 H* D Total Protein 9.0 H Albumin 4.5 Globulin 4.5 Albumin/Globulin Ratio 1.0 L 09/23/17 09/23/17 09/23/17 07:30 07:41 19:50 WBC RBC Hgb Hct MCV MCH MCHC RDW Plt Count MPV Gran % Lymph % (Auto) Ritchie % (Auto) Eos % (Auto) Baso % (Auto) Gran # Lymph # (Auto) Ritchie # (Auto) Eos # (Auto) Baso # (Auto) Sodium 142 Potassium 4.8 Chloride 93 L Carbon Dioxide 37 H Anion Gap 17 BUN 25 H Creatinine 5.8 H Est GFR ( Amer) 9 Est GFR (Non-Af Amer) 8 POC Glucose (mg/dL) 99 Random Glucose 131 H Calcium 8.1 L Phosphorus 7.5 H Magnesium 1.8 Total Bilirubin 0.6 AST 68 H D ALT 34 Alkaline Phosphatase 100 Troponin I Total Protein 8.3 Albumin 3.8 Globulin 4.5 Albumin/Globulin Ratio 0.9 L Assessment & Plan - Assessment and Plan (Free Text) Plan: IMPRESSION &PLAN: 1. Chest pain and chest wall pain, reproducible. 2. Shortness of breath, etiology undetermined at present. 3. Status post rapid response for chest pain and chest wall pain. 4. Non-hemolyzed hyperkalemia. 5. Chronic abdominal pain. 6. Narcotic seeking behavior. 7. End-stage renal disease, hemodialysis dependent three times a week via the left upper extremity arteriovenous fistula. 8. Tachycardia. 9. Hypoxemia. 10. History of poor compliance. 11. Normocytic anemia of chronic disease with granulocytosis. 12. Increased anion gap metabolic acidosis secondary to end-stage renal disease. 13. Elevated troponin of 0.15, etiology undetermined at this time in end-stage renal disease patient. 14. Questionable acute on chronic recurrent systolic congestive heart failure with pulmonary vascular congestion and right lower lobe consolidation. 15. Cardiomegaly. 16. Hypertensive cardiovascular disease. 17. Human immunodeficiency virus, acquired immune deficiency syndrome. 18. CD4 lymphopenia. 19. Ischemic dilated cardiomyopathy with ejection fraction of 35%. 20. Pulmonary hypertension with right ventricular systolic pressure of 60 mmHg. 21. Moderate to severely impaired left ventricular systolic function of 35% with global left ventricular hypokinesis and grade II pseudonormal filling dynamics. 22. Moderately thickened aortic valve. 23. Moderate mitral regurgitation and moderately thickened mitral valve. 24. Moderate tricuspid regurgitation with moderate pulmonary hypertension with right ventricular systolic pressure of almost 60 mmHg. 25. Poor compliance. 26. Insomnia. 27. Secondary hyperparathyroidism of renal origin. 28. Constipation. 29. Hypovitaminosis D. 30. Hyperlipidemia. 31. Hypertriglyceridemia. 32. Gastroparesis. 33. Hypothyroidism. PLAN; PER ORDERS AND PER CONSULTANTS EVALUATION & RECOMMENDATION.
--- NOTE | 2017-09-22 17:19 | RAD ---
HISTORY: Chest pain, shortness of breath. COMPARISON: 08/18/2017 single-view chest 08/19/2017 CT thorax FINDINGS: LUNGS: Pulmonary vascular congestion superimposed upon alveolar consolidative changes right lower lobe. PLEURA: No significant pleural effusion identified, no pneumothorax apparent. CARDIOVASCULAR: Cardiomegaly/worsening CHF OSSEOUS STRUCTURES: No significant abnormalities. VISUALIZED UPPER ABDOMEN: Normal. OTHER FINDINGS: None. IMPRESSION: CHF superimposed upon alveolar consolidative changes seen on the prior study 08/18/2017 with modest interval improvement.
[2017-09-22] MEDS ORDERED: POLYETHYLENE GLYCOL 3350 17 GM/Dose PACKET PO PRN (17:30)
[2017-09-22 17:39] LABS: LIPASE 334 U/L (23-300)
[2017-09-22] MEDS ORDERED: Sod Polystyrene Sulf 15 gm/60 ml Susp PO STA (17:41)
[2017-09-22] MEDS ORDERED: Metoprolol 1 mg/ml Inj IVP STA (17:47)
[2017-09-22 18:15] LABS: ARTERIAL BLOOD GAS HCO3 26.6 mmol/L (21-28); ARTERIAL BLOOD GAS HEMOGLOBIN 8.9 g/dL (11.7-17.4); ARTERIAL BLOOD GAS O2 CAPACITY 12.2 mL/dl (16-24); ARTERIAL BLOOD GAS O2 CONTENT 11.7 ML/dl (15-23); ARTERIAL BLOOD GAS O2 SAT 95.8 % (95-98); ARTERIAL BLOOD GAS PCO2 41 mm/Hg (35-45); ARTERIAL BLOOD GAS PH 7.42 (7.35-7.45); ARTERIAL BLOOD GAS TCO2 27.9 mmol.L (22-28)
[2017-09-22] MEDS ORDERED: RISEDRONATE SODIUM PO SCH (19:30)
[2017-09-22] MEDS: Omega-3-Acid Ethyl Esters 1 GM Cap PO SCH (19:37)
[2017-09-22] MEDS: Ergocalciferol 50,000 Intl Units Cap PO SCH (19:47)
[2017-09-22] MEDS: Acetylcysteine 20% Inhal Soln (4ml) IH SCH (20:08)
[2017-09-22] MEDS ORDERED: Non Formulary Medication (Rosuvastatin Calcium [Crestor] 1 TAB) PO SCH (22:00)
[2017-09-22] MEDS: POLYETHYLENE GLYCOL 3350 17 GM/Dose PACKET PO SCH (22:00)
[2017-09-23] MEDS: Levalbuterol 0.63 MG/3 ML Inhal Soln UD IH SCH ×6 (01:51→20:25)
[2017-09-23] MEDS: Acetylcysteine 20% Inhal Soln (4ml) IH SCH ×4 (01:51→20:25)
[2017-09-23] MEDS: Levothyroxine 25 MCG TAB PO SCH (05:51)
[2017-09-23 06:36] LABS: BASO # 0.03 K/mm3 (0.0-2.0); BASO % 0.3 % (0.0-3.0); EOS # 0.1 (0.0-0.7); EOS % 0.4 % (1.5-5.0); GRAN # 7.98 (1.4-6.5); GRAN % 70.8 % (50.0-68.0); HEMOGLOBIN 10.5 g/dL (12.0-16.0); LYMPH # 2.6 (1.2-3.4); LYMPH % 23.4 % (22.0-35.0); MEAN CELL VOLUME 102.4 fl (80.0-105.0); MEAN CORPUSCULAR HEMOGLOBIN 32.1 pg (25.0-35.0); MEAN CORPUSCULAR HGB CONC 31.3 g/dl (31.0-37.0); MEAN PLATELET VOLUME 9.6 fl (7.0-11.0); MONO # 0.6 (0.1-0.6); MONO % 5.1 % (1.0-6.0); RBC 3.27 10^6/uL (3.5-6.1); RED CELL DISTRIBUTION WIDTH 17.4 % (11.5-14.5); WHITE BLOOD COUNT 11.3 10^3/ul (4.5-11.0)
[2017-09-23] MEDS ORDERED: Albuterol-Ipratrop 3 mg / 0.5 (3 ml) UD IH STA (06:48)
--- NOTE | 2017-09-23 06:51 | PCM.RRT ---
CHIP FRIER Nurse Assessment - Situation Date: 09/23/17 Time CHIP FRIER was called: 06:25 Plan - Assessment of Findings&Treatment Plan 57 year old female with extensive history of ESRD on HD (T, Th, Sat), HIV, [place], CAD s/p stent placement, medication non-compliance, chronic anemia that presented to [facility] with c/o shortness of breath that started approximately 2:30 AM on day of presentation. Prior to the Rapid Response, the patient used the rest room and after coming out complained of dyspnea and 10/10 chest pain below the left breast. Her nurse, called a rapid response given the patient complained of worsening dyspnea and left-sided chest pain. The patient was seen and examined at the bedside. Respiratory was already present and a stat dose of Duonebulized treatment was started. A stat 12 lead EKG was ordered that showed sinus tachycardia, non-specific ST-T wave changes, and left atrial enlargement. House doctor, Dr. Sharon Bustos saw and examined the patient and offered the patient SL Nitroglycerin which the patient refused, stating "it gives her a headache, and that tylenol makes her belly hurt." Initial vitals were stable, and unalarming, and the patient remained on remote telemetry.
[2017-09-23] MEDS ORDERED: Dextrose 50% SYRINGE Inj (50 ml) IVP ONE (07:09)
[2017-09-23] MEDS ORDERED: Sodium Bicarbonate (8.4%) 50 Meq Syringe IVP ONE (07:10)
[2017-09-23 07:11] LABS: ALBUMIN 4.5 g/dL (3.0-4.8); CALCIUM 9.4 mg/dL (8.4-10.5); TROPONIN I 0.15 ng/mL
[2017-09-23] MEDS ORDERED: Insulin Regular 1 UNITS/0.01 ML ML IV STA (07:11)
[2017-09-23] MEDS ORDERED: Albuterol 0.5% Inhal Sol (2.5 mg/0.5 ml) UD IH STA (07:16)
[2017-09-23] MEDS: Nitroglycerin 2% Ointment Foilpak UD TOP SCH ×4 (07:40→23:00)
--- NOTE | 2017-09-23 08:11 | CARD ---
APPROVED REPORT EKG Measurement Heart [id number] VT 150P34 [id number] <Conclusion> Sinus tachycardia Otherwise normal ECG
[2017-09-23] MEDS: CALCIUM ACETATE PO SCH ×3 (09:57→17:32)
[2017-09-23] MEDS: Linaclotide [Linzess] PO SCH (09:58)
[2017-09-23] MEDS: Lidocaine 5% Patch TD SCH ×2 (09:58)
[2017-09-23] MEDS: POLYETHYLENE GLYCOL 3350 17 GM/Dose PACKET PO SCH ×2 (09:58→18:00)
[2017-09-23] MEDS: Lidocaine 5% Oint(35 gm) TOP SCH (09:58)
[2017-09-23] MEDS: Multivitamin Therapeutic Tab PO SCH (09:59)
[2017-09-23] MEDS ORDERED: CALCIUM ACETATE PO SCH (10:00)
--- NOTE | 2017-09-23 10:28 | CARD ---
APPROVED REPORT EKG Measurement Heart [id number] DC 140P33 [id number] <Conclusion> Sinus tachycardia Minimal voltage criteria for LVH, may be normal variant Borderline ECG
[2017-09-23] MEDS ORDERED: Midazolam 2 MG/2 ML VIAL ONE ×3 (11:23→14:10)
[2017-09-23] MEDS ORDERED: Lidocaine 2% Inj (20ml) ONE (11:23)
[2017-09-23] MEDS ORDERED: Iodixanol 320 MG/ML 200 ML BOTTLE IV ONE (11:24)
[2017-09-23] MEDS: PARICALCITOL PO SCH (11:51)
[2017-09-23] MEDS: Omega-3-Acid Ethyl Esters 1 GM Cap PO SCH ×2 (11:51→17:37)
--- NOTE | 2017-09-23 15:11 | CP.PCM.PN ---
Subjective - Date & Time of Evaluation Date of Evaluation: 09/23/17 Time of Evaluation: 09:00 - Subjective Subjective: Medicine progress note: Dr. Rubalcava Patient seen and examined at bedside. Patient had an [employer]SULT[employer] called this am for chest pain. Patient stated that she was having shortness of breath as well, and felt uncomfortable, needed pain relief. Patient was advised that opioid pain medication would not be offered at this time. No other complaints. Objective - Vital Signs/Intake and Output Vital Signs (last 24 hours): Temp Pulse Resp BP Pulse Ox 99.2 F 109 H 18 160/89 H 99 09/23/17 08:24 09/23/17 10:00 09/23/17 08:24 09/23/17 08:35 09/23/17 08:24 Intake and Output: 09/23/17 09/23/17 06:59 18:59 Intake Total 240 240 Output Total 0 Balance 240 240 - Medications Medications: Current Medications Acetaminophen (Tylenol 325mg Tab) 650 mg PO Q6 PRN PRN Reason: TEMP>=99.5F Acetylcysteine (Acetylcysteine 20%) 4 ml IH [id number] [facility] Last Admin: 09/23/17 13:42 Dose: Not Given Aspirin (Ecotrin) 81 mg PO 0800 [facility] Last Admin: 09/23/17 08:35 Dose: 81 mg Atorvastatin Calcium (Lipitor) 80 mg PO HS [facility] Last Admin: 09/22/17 21:57 Dose: 80 mg Clopidogrel Bisulfate (Plavix) 75 mg PO DAILY [facility] Last Admin: 09/23/17 09:59 Dose: Not Given Docusate Sodium (Colace) 100 mg PO TID [facility] Last Admin: 09/23/17 09:57 Dose: Not Given Ergocalciferol (Drisdol 50,000 Intl Units Cap) 1 cap PO Q7D [facility] Last Admin: 09/22/17 19:47 Dose: Not Given Folic Acid (Folic Acid) 1 mg PO DAILY [facility] Last Admin: 09/23/17 09:58 Dose: Not Given Hydroxyzine HCl (Atarax) 25 mg PO BID PRN PRN Reason: Anxiety Levalbuterol HCl (Xopenex) 0.63 mg IH [id number] [facility] Last Admin: 09/23/17 13:42 Dose: Not Given Levothyroxine Sodium (Synthroid) 25 mcg PO 0600 [facility] Last Admin: 09/23/17 05:51 Dose: 25 mcg Lidocaine (Lidoderm) 2 ea TD DAILY [facility] Last Admin: 09/23/17 09:58 Dose: Not Given Lidocaine (Lidocaine 5%) 0 gm TOP DAILY [facility] Last Admin: 09/23/17 09:58 Dose: Not Given Lidocaine (Lidoderm) 1 ea TD DAILY [facility] Last Admin: 09/23/17 09:58 Dose: Not Given Metoclopramide HCl (Reglan) 5 mg IVP ACHS [facility] Last Admin: 09/23/17 11:51 Dose: Not Given Metoprolol Tartrate (Lopressor) 50 mg PO 0800,1800 [facility] Last Admin: 09/23/17 08:35 Dose: 50 mg Multivitamins (Thera Tab) 1 tab PO DAILY [facility] Last Admin: 09/23/17 09:59 Dose: Not Given Nitroglycerin (Nitro-Bid 2% Oint) 1 ea TOP Q6 [facility] Last Admin: 09/23/17 12:39 Dose: Not Given Darunavir [Prezista] 1 tab PO HS [facility] Linaclotide [Linzess (]) 1 cap PO DAILY [facility] Last Admin: 09/23/17 09:58 Dose: Not Given Paricalcitol [ (Zemplar]) 1 cap PO DAILY [facility] Last Admin: 09/23/17 11:51 Dose: Not Given Non-Formulary Medication (Calcium Acetate [Phoslo]) 1,334 cap PO TID [facility] Last Admin: 09/23/17 09:57 Dose: Not Given [id number] Ethyl Esters (Lovaza) 1 gm PO BID [facility] Last Admin: 09/23/17 11:51 Dose: Not Given Ondansetron HCl (Zofran Inj) 4 mg IVP Q4H PRN PRN Reason: Nausea/Vomiting Pantoprazole Sodium (Protonix Inj) 40 mg IVP DAILY [facility] Last Admin: 09/23/17 09:59 Dose: Not Given Polyethylene Glycol (Miralax) 17 gm PO BID [facility] Last Admin: 09/23/17 09:58 Dose: Not Given - Labs Labs: 09/23/17 06:25 09/23/17 06:25 PT 12.8 SECONDS (9.4-12.5) H 09/22/17 16:05 INR 1.12 (0.93-1.08) H 09/22/17 16:05 APTT 23.4 Seconds (25.1-36.5) L 09/22/17 16:05 Assessment and Plan - Assessment and Plan (Free Text) Assessment: 57yo female with history of HIV, [place], CAD w/ stent placement, Medical non- compliance, ESRD on dialysis (T, Th, Sat), and chronic anemia presents w/ SOB in setting of chest pain. Chest XR unremarkable for acute disease. EKG yesterday and today showed sinus tachycardia without ST changes. Troponins trended upward .03-->.11-->.15, and patient's BNP was elevated at 108K, but she has chronic CHF. Patient also had other electrolyte imbalances on admission, and was in need of dialysis - kayexelate and calcium gluconate were ordered, dialysis was scheduled for today. Patient's blood gas was unremarkable with exception of low oxygen. Patient was also complaining of abdominal pain. Lipase was mildly elevated but not in pancreatitis range. She was given zofran in ED and on the floors. Plan: Acute NSTEMI -Continue beta iban, ASA, plavix, lipitor -Cardiolgy Consult: Dr. Tran -Telemetry monitoring Hyperkalemia - Dialysis; kayexalate if needed - Monitor EKG for changes Abdominal pain - Zofran PRN - GI Consult: Dr. Snider ESRD on HD - Nephrology Consult: Dr. Crump - Dialysis as per schedule - Repeat CMP after dialysis today scheduled for 6PM - Continue home medications History CAD -Continue beta iban, ASA, statin, plavix History of Hypothyroidism -Continue home synthroid GI/DVT Prophlyaxis -Protonix/Heparin SC
[2017-09-23] MEDS ORDERED: Sodium Chloride 0.45% 1,000 ML IV SCH (15:30)
--- NOTE | 2017-09-23 16:22 | PN ---
DATE: 09/23/2017 SUBJECTIVE: The patient is seen today in dialysis. The patient is lying in recliner, does not appear to be any pain or distress. The patient does not offer any pain complaints. Overnight nurse's notes were reviewed. Rapid response was called earlier this morning for the patient complained of chest pain. The patient was seen by the medical fee clerk for rapid response. The patient complained of chest pain, which according to my examination at present is more of a chest wall pain and the patient has tenderness upon palpation of the ribcage and chest wall. The patient was offered treatment for the chest pain, but the patient declined nitroglycerin. The patient declined other pain medications. It appeared that the patient had a narcotic seeking behavior which I have discouraged the patient on multiple previous occasions as the patient has recently been admitted within the last 4-8 weeks in opiate rehab at [facility]. The patient has categorically denied using any narcotic outside the hospital. The patient stated that she is only taking 1 tablet of Ultram which has not been prescribed by me for months. PHYSICAL EXAMINATION GENERAL: At present, the patient is seen lying in the recliner in dialysis, watching TV and does not appear to be in any distress or pain. VITAL SIGNS: T-max 99.2. Telemetry shows sinus rhythm and sinus tachycardia, average heart rate 90s and 80s and low 100s. Blood pressure in the last 12-24 hours 160/89, 146/93, 158/93, 136/86, 151/90. Respiration 18. O2 sat 99%. HEAD: Normocephalic, atraumatic. EENT: Shows pinkish pale conjunctivae. Anicteric sclerae. Positive alopecia. No neck rigidity. CHEST: Kyphosis. LUNGS: Shows questionable upper lobe anterior lung melchor rhonchi. Some crackles noted at the bases, right more than the left. Positive anterior lung field rhonchi noted. CARDIOVASCULAR: S1 and S2, regular rhythm. Positive systolic murmur at left sternal border, right second intercostal space, left second intercostal space. Positive chest wall, rib cage, sternal tenderness noted on palpation. ABDOMEN: Soft with hyperactive bowel sounds. The patient denies any constipation. The patient does have some diffuse voluntary guarding. The patient still attempted to hold my hand when I am examining her abdomen. No rebound tenderness noted. No costovertebral angle tenderness. GENITALIA: Female. RECTAL: Deferred. EXTREMITIES: Shows positive left upper extremity AV fistula, positive thrill noted. The patient is presently being dialyzed. Lower extremity shows no pitting edema, no calf tenderness, no Homans' sign. NEUROLOGICAL: The patient is alert, awake, oriented x3. Cranial nerves II-XII grossly intact. Motor strength is 5/5. Gait examination is not tested. DIAGNOSTICS: On 09/23/2017, WBC 11.3, hemoglobin/hematocrit 10.5/33.5, platelet 221, granulocytes 71% segs. ABG on 2 liters from yesterday pH of 7.42, pCO2 of 41, pO2 of 64, bicarb 27, saturation 96%. Chemistry from this morning, sodium 142, potassium 6.1, which is non-hemolyzed. Chloride 95, CO2 27, anion gap 26, BUN 57, creatinine 12.3, glucose 120, AST 54, troponin is peaked up to 0.15, total protein 9. EKG from this morning and yesterday was reviewed. EKG basically shows sinus tachycardia with nonspecific changes with T-wave inversion in V1-V2 and questionable T-wave changes aVL. IMPRESSION: 1. Chest pain and chest wall pain, reproducible. 2. Shortness of breath, etiology undetermined at present. 3. Status post rapid response for chest pain and chest wall pain. 4. Non-hemolyzed hyperkalemia. 5. Chronic abdominal pain. 6. Narcotic seeking behavior. 7. End-stage renal disease, hemodialysis dependent three times a week via the left upper extremity arteriovenous fistula. 8. Tachycardia. 9. Hypoxemia. 10. History of poor compliance. 11. Normocytic anemia of chronic disease with granulocytosis. 12. Increased anion gap metabolic acidosis secondary to end-stage renal disease. 13. Elevated troponin of 0.15, etiology undetermined at this time in end-stage renal disease patient. 14. Questionable acute on chronic recurrent systolic congestive heart failure with pulmonary vascular congestion and right lower lobe consolidation. 15. Cardiomegaly. 16. Hypertensive cardiovascular disease. 17. Human immunodeficiency virus, acquired immune deficiency syndrome. 18. CD4 lymphopenia. 19. Ischemic dilated cardiomyopathy with ejection fraction of 35%. 20. Pulmonary hypertension with right ventricular systolic pressure of 60 mmHg. 21. Moderate to severely impaired left ventricular systolic function of 35% with global left ventricular hypokinesis and grade II pseudonormal filling dynamics. 22. Moderately thickened aortic valve. 23. Moderate mitral regurgitation and moderately thickened mitral valve. 24. Moderate tricuspid regurgitation with moderate pulmonary hypertension with right ventricular systolic pressure of almost 60 mmHg. 25. Poor compliance. 26. Insomnia. 27. Secondary hyperparathyroidism of renal origin. 28. Constipation. 29. Hypovitaminosis D. 30. Hyperlipidemia. 31. Hypertriglyceridemia. 32. Gastroparesis. 33. Hypothyroidism. PLAN AT THIS TIME: The patient has been requested to be evaluated by Cardiology for evaluation of chest pain and chest wall pain. The patient was called for an early dialysis for treatment of hyperkalemia. In addition, the patient was given high-dose albuterol treatment with IV sodium bicarb, IV calcium gluconate, IV regular insulin and 1 ampule D50 prior to dialysis for hyperkalemia. Current consultation; Nephrology, Cardiology and Gastroenterology. Evaluation, TCU. CURRENT MEDICATIONS: Mucomyst nebulizer 4 mL 20% every 6 hours. The patient was given a stat dose of 10 mg of albuterol, Atarax 25 mg b.i.d. p.r.n., PhosLo 1334 mg three times a day, Colace 100 three times a day, Prezista 1 tablet at bedtime, Drisdol 50,000 weekly, Ecotrin 81 mg daily, folic acid 1 mg daily, Lidoderm 5% patch to the affected area of pain including the chest wall and ribcage, Linzess 1 capsule daily, Lipitor 80 mg at bedtime, Lopressor 50 mg twice a day, Lovaza 1 g twice a day, MiraLax 17 g twice a day, nitroglycerin paste 1 inch every 6 hours, Zemplar 1 capsule daily, Plavix 75 mg daily, Protonix 40 mg IV daily, Reglan 5 mg IV before meals and at bedtime, Synthroid 25 mcg daily, multivitamin 1 tablet daily, Tylenol p.o. suppository every 6 hours p.r.n., Xopenex nebulizer every 6 hours [id number]. The patient is on Zofran 4 mg IV every 4 hours. Chest PT, incentive spirometry, oxygen 2 liters, renal diet, out of bed, SCDs, HUNTER stockings, physical therapy, occupational therapy ordered. The patient's case was extensively discussed with Cardiology. We will await further recommendation and evaluation by Cardiology regarding further management of the patient's complaint of chest pain. The patient is still to be evaluated by Gastroenterology and Nephrology. The patient updated about her condition, diagnoses, treatment plan, treatment options, discussed and explained to the patient at length. The patient was advised again and reinforced to ovoid narcotic use as the patient's symptoms are not suggestive or indicative of use of narcotic and the patient was advised that the cause of her symptom needs to be addressed rather than the symptoms. All of the above was discussed and explained to the patient in layman's language. All questions concerned answered. The patient was seen in dialysis. Dictated and electronically signed, not read. Ranjith Rubalcava MD
--- NOTE | 2017-09-23 16:24 | CARDCATH ---
PROCEDURE DATE: 09/23/2017 HISTORY: The patient is a 57-year-old woman with multiple cardiac risk factors including documented triple-vessel CAD and status post multi stents in the LAD as well as the circumflex artery as well as POBA in multiple areas of the RCA. She suffers from hypertension, hypercholesterolemia, end-stage renal disease and is HIV positive. Because of her ongoing symptoms, cardiac catheterization was recommended. PROCEDURE: Left heart catheterization with coronary arteriography and left ventriculogram. The right femoral artery was cannulated with 6-Sinhala sheath. There were no complications. I performed moderate sedation, which included the presence of an independent trained observer that assisted in monitoring the patient's level of consciousness and physiologic status. After administration of Versed and fentanyl, my intra service time was 15 minutes. The findings on catheterization revealed the left ventricle that was mildly dilated and minimally globally hypokinetic. Estimated ejection fraction is 50%. Her coronary anatomy revealed a right dominant circulation. The RCA revealed diffuse atherosclerosis throughout its tree with two 50% lesions in the mid and distal RCA. In the very distal PDA, there was an 80% stenoses noted in a small distal PDA. The left main artery was unremarkable. The circumflex artery revealed diffuse atherosclerosis without critical lesions. The 2 stent sites were patent. The LAD and diagonal vessels revealed diffuse atherosclerosis with patent stents noted. Angio-Seal was used to close the femoral artery site. The patient tolerated the procedure well. In summary, the procedure revealed patent stents in the LAD and circumflex artery, patent PTCA sites of the RCA. An 80% stenoses in the very distal portion of the PDA which is a small vessel. LV function is low normal with an EF of 50%. Given these findings, it is unlikely the patient's chest pain symptoms are of cardiac ischemic in nature. She will need to continue a cardiac risk reduction program. Derrick Tran MD
--- NOTE | 2017-09-23 18:03 | CON ---
DATE: 09/22/2017 CARDIOLOGY CONSULTATION HISTORY: The patient is a 57-year-old woman with multiple medical problems including history of recurrent pancreatitis; diffuse body aches; history of triple-vessel CAD; hypercholesterolemia; end-stage renal disease, currently treated with dialysis, who presents with recurrent pain again including chest pain. SOCIAL HISTORY: The patient does not smoke. REVIEW OF SYSTEMS: A 14-point review of systems is reviewed in detail. No cardiac symptomatology is noted. PHYSICAL EXAMINATION: VITAL SIGNS: Blood pressure is 160/89, heart rate is in the 90s. NECK: Negative JVD. LUNGS: Without rales. HEART: S1, S2. EXTREMITIES: Without edema. LABORATORY DATA: Reviewed. EKG shows no acute changes. The potassium was 6. IMPRESSION: 1. Recurrent pain including angina. 2. History of triple-vessel coronary artery disease. 3. End-stage renal disease. 4. Hyperkalemia. 5. Marked anemia. 6. Hypertension. 7. Hypercholesterolemia. PLAN: Given these findings, the patient will need to undergo dialysis. Once her dialysis done, we will consider cardiac catheterization. Derrick Tran MD
--- NOTE | 2017-09-23 18:37 | CON ---
DATE: 09/23/2017 REFERRING MD: Ranjith Rubalcava MD. REASON FOR CONSULTATION: To provide dialysis services for the patient with end-stage renal disease known to us, who presents with CHF, shortness of breath and chest pain. HISTORY OF PRESENT ILLNESS: The patient is a pleasant 57-year-old black female with a history of end-stage renal disease on chronic maintenance hemodialysis, history of HIV with HIV nephropathy, history of chronic abdominal pain with periodic bouts of pancreatitis, history of anemia secondary to chronic kidney disease, history of secondary hyperparathyroidism, hypertension, history of ASHD status post PTCA and stents, who presents to the hospital with increased shortness of breath, mild CHF and chest pain. The patient's troponin levels are essentially flat, ranging from 0.03 to 0.15. BNP level was elevated at 108,000, potassium was 6.1. The BUN of 57 and creatinine of 12.3. The patient is presently receiving dialysis. She states that she is being scheduled for a cardiac catheterization. 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 MEDICATIONS AT HOME: Include that of Crestor, Protonix, Lovaza, Lopressor, Reglan, vitamin D, Plavix, PhosLo, Mepron, Ecotrin, Tylenol p.r.n., lamivudine, vitamin B12, Atarax, multivitamins, Synthroid, Lipitor, Lidoderm, Mucomyst inhalation therapy, Prezista, Norvir, Vistaril and Ziagen. ALLERGIES: THE PATIENT IS ALLERGIC TO MAVIS INHIBITORS. CURRENT MEDICATIONS: Current medications in hospital include that of acetylcysteine, Atarax, PhosLo, Colace, Prezista, vitamin D, Ecotrin, Lidoderm, lidocaine, folic acid, Linzess, Lipitor, Lopressor, Lovaza, MiraLax, nitroglycerin ointment, Zemplar, Plavix, Protonix, Reglan, Synthroid, Thera-Tabs, Tylenol, Xopenex and Zofran. SOCIAL HISTORY: The patient has a past history of cigarette smoking. No history of alcohol use. The patient is retired. FAMILY HISTORY: Positive for heart disease and diabetes. REVIEW OF SYSTEMS: Ten plus systems reviewed with the patient. All negative except what is noted above. GENERAL: Appetite has been stable. Weight has been stable. HEENT: Denies any hearing or visual problems. PULMONARY: Positive shortness of breath as noted above. CARDIAC: History of ASHD with stent placement, chest pain as noted above. GASTROINTESTINAL: History of chronic abdominal pain, history of pancreatitis. Presently, no nausea or vomiting, no constipation or diarrhea. GENITOURINARY: History of end-stage renal disease with minimal urine output. GYNECOLOGIC: Postmenopausal. ENDOCRINE: No history of diabetes. Positive history of secondary hyperparathyroidism. MUSCULOSKELETAL: No complaints. NEUROLOGICAL: No history of CVA, TIA, seizures or syncope. HEMATOLOGY/ONCOLOGY: History of anemia secondary to chronic kidney disease. PSYCHIATRIC: History is negative. PHYSICAL EXAMINATION: GENERAL: The patient is currently seen in dialysis. VITAL SIGNS: Present blood pressure is 140/80, pulse 100, respiratory rate is 18 with a temperature of 99.2. HEENT: Shows her to be normocephalic, atraumatic. Conjunctivae are pink. Sclerae nonicteric. Pupils equal and reactive to light and accommodation. Extraocular muscles are intact. NECK: Supple. No neck vein distention, thyromegaly. No lymphadenopathy. No bruits. CHEST: Clear to auscultation and percussion with slight decreased breath sounds at the bases. Scattered rhonchi. No rales or wheezing. CARDIOVASCULAR: Shows a regular rate and rhythm without audible murmurs, rubs or gallops. ABDOMEN: Soft. Bowel sounds normal. No rebound, no guarding, no masses. EXTREMITIES: Show left upper extremity AV fistula cannulated. No lower extremity edema. No cyanosis or clubbing. NEURO: Shows her to be alert, oriented x3 with no gross focal motor or sensory deficits noted. IMAGING STUDIES: Admitting chest x-ray from yesterday showed mild CHF. Admitting EKG shows sinus bradycardia with no acute ST or T-wave changes. LABORATORY DATA: CBC: White blood cell count is 11.3 with a hemoglobin of 10.5, platelet count is 221,000. Coags: PT of 12.8 with PTT of 23.4. Admitting blood gas showed a pH of 7.42, pO2 of 64 with pCO2 of 41. Chemistries from today showed a potassium of 6.1, sodium 142, BUN of 57 with a creatinine of 12.3. Glucose is 120. Liver enzymes, AST mildly elevated at 54. Troponin ranging from 0.03 to 0.15. BNP was 108,000. Albumin was 4.5. Lipase was slightly elevated at 334. Microbiology, no cultures. ASSESSMENT: 1. Acute episode of shortness of breath with chest pain. The patient has known history of coronary artery disease status post percutaneous transluminal angioplasty stent. The patient states she is being scheduled for a cardiac catheterization to occur during this present hospitalization. She has been seen by Dr. Tran her pattern attendant. Her EKG shows no acute changes and a mild elevation of troponin that is likely secondary to end-stage renal disease. The patient believes that her episodes of shortness of breath and congestive heart failure are related to cardiac issues rather than noncompliance with dietary restrictions and fluid restrictions with dialysis. 2. History of end-stage renal disease. The patient will continue Friday, , Friday dialysis as per routine. We will maximize ultrafiltration as tolerated. 3. History of human immunodeficiency virus. The patient will continue highly active antiretroviral therapy. Etiology of her chronic kidney disease was acquired immune deficiency. 4. History of esophageal ulcer, erosive gastritis. The patient continues on appropriate medications. 5. History of chronic abdominal pain with intermittent acute pancreatitis. The patient followed by GI. 6. History of anemia secondary to chronic kidney disease. The patient will receive Aranesp and IV iron as per protocol with dialysis. 7. History of secondary hyperparathyroidism. The patient will continue vitamin D supplement. She will continue binder therapy. We will check her phosphorus level today. She will be maintained on a renal diet. PLAN: 1. Routine dialysis on Friday, , Friday. 2. Increase ultrafiltration in light of her congestive heart failure on chest x-ray. 3. Agree with extensive cardiac evaluation as the patient believes that her chest pain and shortness of breath is related to cardiac issues rather than noncompliance with fluid restriction. 4. Check phosphorus and adjust binder therapy. 5. Aranesp and IV iron per protocol. 6. We will monitor the patient closely for any bouts of abdominal pain and recurrent pancreatitis. Thank you for letting me partake and share in the care of our mutual patient. David Crump MD
[2017-09-23 20:06] LABS: ALB/GLOB RATIO 0.9 (1.1-1.8); ALBUMIN 3.8 g/dL (3.0-4.8); CALCIUM 8.1 mg/dL (8.4-10.5)
[2017-09-23] MEDS: DARUNAVIR PO SCH (22:12)
[2017-09-24] MEDS: Levalbuterol 0.63 MG/3 ML Inhal Soln UD IH SCH ×4 (02:30→21:02)
[2017-09-24] MEDS: Acetylcysteine 20% Inhal Soln (4ml) IH SCH ×4 (02:30→21:02)
[2017-09-24] MEDS: Nitroglycerin 2% Ointment Foilpak UD TOP SCH ×3 (05:44→17:46)
[2017-09-24] MEDS: Levothyroxine 25 MCG TAB PO SCH (05:45)
[2017-09-24 08:02] LABS: BASO # 0.01 K/mm3 (0.0-2.0); BASO % 0.1 % (0.0-3.0); EOS # 0.1 (0.0-0.7); EOS % 2.1 % (1.5-5.0); GRAN # 5.1 (1.4-6.5); GRAN % 75.9 % (50.0-68.0); HEMOGLOBIN 8.9 g/dL (12.0-16.0); LYMPH # 1.1 (1.2-3.4); LYMPH % 16.8 % (22.0-35.0); MEAN CELL VOLUME 102.2 fl (80.0-105.0); MEAN CORPUSCULAR HEMOGLOBIN 32.5 pg (25.0-35.0); MEAN CORPUSCULAR HGB CONC 31.8 g/dl (31.0-37.0); MEAN PLATELET VOLUME 9.6 fl (7.0-11.0); MONO # 0.3 (0.1-0.6); MONO % 5.1 % (1.0-6.0); RBC 2.74 10^6/uL (3.5-6.1); RED CELL DISTRIBUTION WIDTH 17.7 % (11.5-14.5); WHITE BLOOD COUNT 6.7 10^3/ul (4.5-11.0)
--- NOTE | 2017-09-24 08:04 | CARD ---
APPROVED REPORT EKG Measurement Heart [id number] CT [id number] [id number] <Conclusion> Sinus tachycardia Possible Left atrial enlargement Nonspecific ST and T wave abnormality Abnormal ECG
[2017-09-24 08:12] LABS: ALB/GLOB RATIO 0.9 (1.1-1.8); ALBUMIN 3.8 g/dL (3.0-4.8); CALCIUM 7.8 mg/dL (8.4-10.5)
[2017-09-24 08:13] LABS: ALB/GLOB RATIO 0.9 (1.1-1.8); ALBUMIN 3.8 g/dL (3.0-4.8); BILIRUBIN,DIRECT 0.4 mg/dL (0.0-0.4); URIC ACID 5.6 mg/dL (2.5-6.2)
[2017-09-24 08:28] LABS: FREE T4 1.18 ng/dL (0.78-2.19); T4 4.9 ug/dL (5.5-11.0)
[2017-09-24] MEDS: Lidocaine 5% Oint(35 gm) TOP SCH ×2 (10:00→11:00)
[2017-09-24] MEDS: Lidocaine 5% Patch TD SCH ×4 (10:00→10:54)
[2017-09-24] MEDS: POLYETHYLENE GLYCOL 3350 17 GM/Dose PACKET PO SCH ×3 (10:00→17:47)
[2017-09-24] MEDS: PARICALCITOL PO SCH (10:18)
[2017-09-24] MEDS: CALCIUM ACETATE PO SCH ×3 (10:55→19:12)
[2017-09-24] MEDS: Multivitamin Therapeutic Tab PO SCH (10:55)
[2017-09-24] MEDS: Linaclotide [Linzess] PO SCH (10:57)
[2017-09-24] MEDS: Omega-3-Acid Ethyl Esters 1 GM Cap PO SCH ×2 (11:00→17:46)
--- NOTE | 2017-09-24 11:39 | PN ---
DATE: 09/24/2017 CARDIOLOGY FOLLOWUP SUBJECTIVE: The patient is in bed without shortness breath, without chest pain. PHYSICAL EXAMINATION: VITAL SIGNS: Blood pressure is 121/74 with the heart rates in the 80s. NECK: Negative JVD. LUNGS: Without rales. HEART: Reveals S1, S2. EXTREMITIES: Without edema. The groin site is stable. LABORATORY DATA: Laboratories are pending. IMPRESSION: 1. Chest pain. 2. Noncardiac chest pain. 3. Status post catheterization, which revealed patent stents in the left anterior descending and circumflex artery as well as patent percutaneous transluminal coronary angioplasty sites in the right coronary artery. There are lesions in the distal small vessel of the posterior descending artery. 4. Stable post cardiac catheterization. 5. End-stage renal disease. 6. Stable angina. 7. Coronary artery disease. 8. Hypercholesterolemia. 9. Anemia. PLAN: Given these findings, the patient's cardiac status is stable. Her chest pain, which is part of her body aches is not of cardiac origin. We will discontinue telemetry today. Derrick Tran MD
[2017-09-24] MEDS ORDERED: Acetylcysteine 20% Inhal Sol (30ml) IH SCH (11:45)
[2017-09-24] MEDS ORDERED: Acetylcysteine 20% Inhal Soln (4ml) IH ONE (12:15)
[2017-09-24 13:25] LABS: VENOUS BLOOD GAS BASE EXCESS 10.9 mmol/L (0.0-2.0); VENOUS BLOOD GAS PO2 51 mm/Hg (30-55); VENOUS BLOOD PH 7.49 (7.32-7.43)
--- NOTE | 2017-09-24 13:43 | RAD ---
HISTORY: Fever. COMPARISON: 09/22/2017. TECHNIQUE: Chest PA and lateral FINDINGS: LUNGS: Improving pulmonary edema. PLEURA: No significant pleural effusion identified. No pneumothorax apparent. CARDIOVASCULAR: Cardiomegaly with improving pulmonary vascular congestion. OSSEOUS STRUCTURES: No significant abnormalities. VISUALIZED UPPER ABDOMEN: Normal. OTHER FINDINGS: None. IMPRESSION: Improving pulmonary vascular congestion. Improved pulmonary parenchymal infiltrates.
--- NOTE | 2017-09-24 16:01 | CON ---
DATE: 09/24/2017 REQUESTING PHYSICIAN: Ranjith Rubalcava MD REASON FOR CONSULTATION: I have been asked to see this 57-year-old female with multiple medical problems including end-stage renal disease on hemodialysis, coronary artery disease, chronic abdominal pain, chronic anemia who comes to the hospital with one day of increasing shortness of breath associated with left-sided chest pain radiating to her left arm. Chest x-ray showed increased vascular congestion suggestive of congestive heart failure. The patient admits to some mild lower abdominal cramping. She denied any nausea or vomiting. She denies any hematemesis or rectal bleeding. The patient underwent a cardiac catheterization yesterday, which revealed 80% stenosis of the distal PDA with an ejection fraction of 50%. She did have a stent in the LAD and circumflex with patent PTCA site in the RCA. The LV was minimal a globally hypokinetic and mildly dilated. There was diffuse atherosclerosis in the RCA with 80% stenosis of the distal PDA. She currently denies any abdominal pain, nausea or vomiting. She is tolerating solid foods. PAST MEDICAL HISTORY: As above. Again, she has a history of end-stage renal disease, coronary artery disease status post coronary artery stents and PTCA, HIV positivity, chronic abdominal pain, chronic anemia. PAST SURGICAL HISTORY: Notable for , cholecystectomy, AV shunt in her left arm. SOCIAL HISTORY: She is a former cigarette smoker having quit 20 years ago. She denies alcohol use. FAMILY HISTORY: Notable for coronary artery disease and diabetes mellitus. REVIEW OF SYSTEMS: A 14-point review of systems is notable for shortness of breath and chest pain and mild abdominal cramps. PHYSICAL EXAMINATION: GENERAL: Well-developed female, lying in bed in no acute distress. VITAL SIGNS: Reveal temperature of 98, blood pressure 121/74, heart rate of 86. HEENT: Reveal sclerae to be white. Conjunctivae pale. NECK: Supple. CHEST: Reveal scattered rales at the bases. HEART: Reveals regular rate and rhythm. ABDOMEN: Soft, nontender. EXTREMITIES: Show no edema. She does have an AV shunt in her left arm. LABORATORY DATA: Reveal white blood cell count 6.7, hemoglobin 8.9. Chemistries reveal BUN 35, creatinine 7.4, AST 68, ALT normal. IMPRESSION: 1. Congestive heart failure. 2. Left-sided chest pain with catheterization showing above findings. 3. End-stage renal disease. 4. Chronic anemia. 5. Human immunodeficiency virus positivity. RECOMMENDATIONS: Continue current treatment including dialysis. No further GI workup is planned at this time. Her GI symptoms are stable at this time. Paul Snider MD
[2017-09-24 16:09] LABS: VENOUS BLOOD GAS BASE EXCESS 10.8 mmol/L (0.0-2.0); VENOUS BLOOD GAS PO2 37 mm/Hg (30-55); VENOUS BLOOD PH 7.45 (7.32-7.43)
--- NOTE | 2017-09-24 17:32 | CP.PCM.PN ---
Subjective - Date & Time of Evaluation Date of Evaluation: 09/24/17 Time of Evaluation: 09:40 - Subjective Subjective: Medicine progress note: Dr. Rubalcava Patient seen and examined at bedside. Patient stated that she was short of breath after catheterization yesterday but is feeling well today. No other complaints. Objective - Vital Signs/Intake and Output Vital Signs (last 24 hours): Temp Pulse Resp BP Pulse Ox 99.4 F 18 L 94 H 107/61 94 L 09/24/17 14:00 09/24/17 14:00 09/24/17 14:00 09/24/17 14:00 09/24/17 06:00 Intake and Output: 09/24/17 09/24/17 06:59 18:59 Intake Total 285 Output Total 0 Balance 285 - Medications Medications: Current Medications Acetaminophen (Tylenol 325mg Tab) 650 mg PO Q6 PRN PRN Reason: TEMP>=99.5F Last Admin: 09/24/17 12:09 Dose: 650 mg Acetylcysteine (Acetylcysteine 20%) 4 ml IH [id number] [facility] Last Admin: 09/24/17 13:09 Dose: 4 ml Alprazolam (Xanax) 0.25 mg PO Q8H PRN; Protocol PRN Reason: Anxiety Stop: 10/02/17 19:31 Last Admin: 09/23/17 19:50 Dose: 0.25 mg Aspirin (Ecotrin) 81 mg PO 0800 [facility] Last Admin: 09/24/17 07:58 Dose: 81 mg Atorvastatin Calcium (Lipitor) 80 mg PO HS [facility] Last Admin: 09/23/17 22:12 Dose: 80 mg Docusate Sodium (Colace) 100 mg PO TID [facility] Last Admin: 09/24/17 15:20 Dose: Not Given Doxycycline Hyclate (Doryx) 100 mg PO Q12 [facility] PRN Reason: Protocol Last Admin: 09/24/17 15:20 Dose: 100 mg Ergocalciferol (Drisdol 50,000 Intl Units Cap) 1 cap PO Q7D [facility] Last Admin: 09/22/17 19:47 Dose: Not Given Folic Acid (Folic Acid) 1 mg PO DAILY [facility] Last Admin: 09/24/17 10:55 Dose: 1 mg Hydroxyzine HCl (Atarax) 25 mg PO BID PRN PRN Reason: Anxiety Last Admin: 09/23/17 17:44 Dose: 25 mg Levalbuterol HCl (Xopenex) 0.63 mg IH [id number] [facility] Last Admin: 09/24/17 13:09 Dose: 0.63 mg Levothyroxine Sodium (Synthroid) 25 mcg PO 0600 [facility] Last Admin: 09/24/17 05:45 Dose: 25 mcg Lidocaine (Lidoderm) 2 ea TD DAILY [facility] Last Admin: 09/24/17 10:00 Dose: Not Given Lidocaine (Lidocaine 5%) 0 gm TOP DAILY [facility] Last Admin: 09/24/17 10:00 Dose: Not Given Lidocaine (Lidoderm) 1 ea TD DAILY [facility] Last Admin: 09/24/17 10:00 Dose: Not Given Metoclopramide HCl (Reglan) 5 mg IVP ACHS [facility] Last Admin: 09/24/17 07:57 Dose: 5 mg Metoprolol Tartrate (Lopressor) 50 mg PO 0800,1800 [facility] Last Admin: 09/24/17 07:58 Dose: 50 mg Multivitamins (Thera Tab) 1 tab PO DAILY [facility] Last Admin: 09/24/17 10:55 Dose: 1 tab Nitroglycerin (Nitro-Bid 2% Oint) 1 ea TOP Q6 [facility] Last Admin: 09/24/17 11:54 Dose: Not Given Darunavir [Prezista] 1 tab PO HS [facility] Last Admin: 09/23/17 22:12 Dose: Not Given Linaclotide [Linzess (]) 1 cap PO DAILY [facility] Last Admin: 09/24/17 10:57 Dose: Not Given Paricalcitol [ (Zemplar]) 1 cap PO DAILY [facility] Last Admin: 09/24/17 10:18 Dose: Not Given Non-Formulary Medication (Calcium Acetate [Phoslo]) 1,334 cap PO TID [facility] Last Admin: 09/24/17 15:21 Dose: Not Given Xyzip-7-Isba Ethyl Esters (Lovaza) 1 gm PO BID [facility] Last Admin: 09/24/17 11:00 Dose: 1 gm Ondansetron HCl (Zofran Inj) 4 mg IVP Q4H PRN PRN Reason: Nausea/Vomiting Pantoprazole Sodium (Protonix Ec Tab) 40 mg PO ACB [facility] Polyethylene Glycol (Miralax) 17 gm PO BID [facility] Last Admin: 09/24/17 10:00 Dose: Not Given - Labs Labs: 09/24/17 07:30 09/24/17 07:30 PT 12.8 SECONDS (9.4-12.5) H 09/22/17 16:05 INR 1.12 (0.93-1.08) H 09/22/17 16:05 APTT 23.4 Seconds (25.1-36.5) L 09/22/17 16:05 - Constitutional Appears: Well - Head Exam Head Exam: ATRAUMATIC, NORMAL INSPECTION, NORMOCEPHALIC - Eye Exam Eye Exam: EOMI, Normal appearance, PERRL Pupil Exam: NORMAL ACCOMODATION, PERRL - ENT Exam ENT Exam: Mucous Membranes Moist, Normal Exam - Neck Exam Neck Exam: Full ROM, Normal Inspection. absent: Lymphadenopathy - Respiratory Exam Respiratory Exam: Decreased Breath Sounds, Rales, NORMAL BREATHING PATTERN - Cardiovascular Exam Cardiovascular Exam: REGULAR RHYTHM, +S1, +S2. absent: Murmur - GI/Abdominal Exam GI & Abdominal Exam: Soft, Normal Bowel Sounds. absent: Tenderness - Extremities Exam Extremities Exam: Full ROM, Normal Capillary Refill, Normal Inspection. absent : Joint Swelling, Pedal Edema - Back Exam Back Exam: NORMAL INSPECTION - Neurological Exam Neurological Exam: Alert, Awake, CN II-XII Intact, Normal Gait, Oriented x3 - Psychiatric Exam Psychiatric exam: Normal Affect, Normal Mood - Skin Skin Exam: Dry, Intact, Normal Color, Warm Assessment and Plan - Assessment and Plan (Free Text) Assessment: 57yo female with history of HIV, [place], CAD w/ stent placement, Medical non- compliance, ESRD on dialysis (T, Th, Sat), and chronic anemia presents w/ SOB in setting of chest pain. Chest XR unremarkable for acute disease. EKG yesterday and today showed sinus tachycardia without ST changes. Troponins trended upward .03-->.11-->.15, and patient's BNP was elevated at 108K, but she has chronic CHF. Patient also had other electrolyte imbalances on admission, and was in need of dialysis - kayexelate and calcium gluconate were ordered, dialysis was performed yesterday. Patient's blood gas was unremarkable with exception of low oxygen. Patient was also complaining of abdominal pain. Lipase was mildly elevated but not in pancreatitis range. She was given zofran in ED and on the floors. Patient spiked a fever overnight, septic workup pending. Chest XR without any acute disease. Plan: Fever - Septic work up pending - reyes cultures - Chest XR - Vanc X 1, Mucomyst - ID Consult: Dr. Rodriguez Chest Pain Rule Out ACS - Resolved - Continue beta iban, ASA, plavix, lipitor - Cardiolgy Consult: Dr. Tran Per Dr. Tran, most likely troponin elevation was not cardiac related - Telemetry monitoring Anemia, likely 2/2 CKD - Will give 1 unit of blood tomorrow during dialysis Hyperkalemia - Dialysis; kayexalate if needed - Monitor EKG for changes Abdominal pain - Zofran PRN - GI Consult: Dr. Snider No further GI workup necessary at this time HIV Infection - Continue home medications - Recommend outpatient CD4 count follow up ESRD on HD - Nephrology Consult: Dr. Crump - Dialysis as per schedule - Repeat CMP after dialysis today scheduled for 6PM - Continue home medications History CAD -Continue beta iban, ASA, statin, plavix History of Hypothyroidism -Continue home synthroid GI/DVT Prophlyaxis -Protonix/Heparin SC
[2017-09-24] MEDS ORDERED: Vancomycin 1gm in NS 250ml 1 GM/250 ML BAG IVPB STA (17:37)
[2017-09-24] MEDS ORDERED: Acetylcysteine 20% Inhal Soln (4ml) IH SCH (18:00)
[2017-09-24] MEDS ORDERED: Meropenem 500 MG in Sodium Chloride 0.9% 50 ML IVPB SCH (19:30)
--- NOTE | 2017-09-24 20:19 | PN ---
DATE: 09/24/2017 SUBJECTIVE: The patient is seen sitting in bed where she is awake. She is alert. She complains of shortness of breath. She wants to go home. PHYSICAL EXAMINATION: GENERAL: Middle-aged lady sitting in bed. VITAL SIGNS: Blood pressure 147/94, heart rate 87, respiratory rate 18, temperature 98. HEENT: Normocephalic, atraumatic, positive pallor. NECK: Supple, no JVD. LUNGS: Bilateral equal air entry, bilateral equal expansion, no rales. CARDIAC: S1 and S2, regular rate and rhythm, no murmur, no rub. ABDOMEN: Obese, distended, soft, nontender, bowel sounds present. EXTREMITIES: No lower extremity edema. INTAKE AND OUTPUT: Not charted. LABORATORY DATA: WBC 6.7, hemoglobin 8.9, hematocrit 28, platelets 177. Sodium 144, potassium 5, chloride 93, CO2 of 35, BUN 35, creatinine 7.4, glucose 111, calcium 7.8, uric acid 5.6, phosphorus 6.9, magnesium 1.6, albumin 3.8. CURRENT MEDICATIONS: Mucomyst, Atarax, PhosLo, Colace, darunavir, doxycycline, aspirin, folic acid, Lipitor, Lopressor, MiraLax, Zemplar, Protonix, Reglan, Synthroid. ASSESSMENT AND PLAN: 1. Cardiac catheterization revealed patent stents in the left anterior descending and circumflex artery, patent percutaneous transluminal coronary angioplasty sites of the right coronary artery, 80% stenosis in the very distal portion of the posterior descending artery. Left ventricular function is normal about 50%. 2. New fever. 3. Shortness of breath. 4. End-stage renal disease. 5. Human immunodeficiency virus. 6. Hypertension. 7. Anemia. PLAN: 1. Stable dialysis yesterday. 2. Next dialysis tomorrow. 3. Increased ultrafiltration on dialysis. 4. Discontinue oral Zemplar, the patient gets it on dialysis. 5. Continue phosphate binder. Meryl Shukla MD
[2017-09-24] MEDS: DARUNAVIR PO SCH (21:00)
--- NOTE | 2017-09-24 21:31 | PN ---
DATE: 09/24/2017 SUBJECTIVE: The patient is seen in room 264, bed 1. The patient is ambulating in the room. Overnight nurse's notes were reviewed. The patient was found to have poor IV access. Overnight in the last 24 hours, the patient had episodes of shortness of breath with some anxiety. Overnight, the patient spiked fever of 102.8. PHYSICAL EXAMINATION: VITAL SIGNS: T-max 102.8 down to 100.4, telemetry shows sinus rhythm, sinus tachycardia. Blood pressure in the last 24 hours ranging from 150, 160, 170 systolic, diastolic 70s. Today's blood pressure 120s systolic and diastolic in 60s and 70s. Respiration 16, 20, 18, O2 sat is 94 to 99 to 100%. HEENT: Head: Normocephalic, atraumatic. HEENT examination shows pinkish pale conjunctivae. Anicteric sclerae. No oropharyngeal lesion. NECK: No neck rigidity. CHEST: Kyphosis. LUNGS: Shows positive rhonchi, crepitations bilaterally. CARDIOVASCULAR: S1 and S2, regular rhythm. Positive systolic murmur, left sternal border, left second intercostal space, right second intercostal space. Positive reproducible chest wall tenderness noted. ABDOMEN: Soft. Positive bowel sounds. GENITALIA: Female. RECTAL: Deferred. EXTREMITIES: Shows positive left upper extremity AV fistula, positive thrill. MUSCULOSKELETAL: Shows a body mass index of 23. NEUROLOGICAL: The patient is alert, awake, oriented x3. Ambulating independently in the room. VASCULAR: Palpable pulses. PSYCHIATRIC: Positive for anxiety. DIAGNOSTICS: From 09/24/2017, WBC count 6.7, hemoglobin and hematocrit 8.9 and 28, platelet 177, 76% segs. Initial VBG was done, which shows lactate of 2.9. Repeat lactate in 4 hours shows a lactate of 1.8, pH of 7.49. Sodium 144, potassium 5, chloride 93, CO2 35, anion gap 21, BUN 35, creatinine 7.4, GFR 7, glucose 111, calcium is 7.8, uric acid 5.6, phosphorus 6.9, magnesium 1.6, AST 68, triglyceride 224, cholesterol 159, LDL 42, HDL 42. Procalcitonin level 15.3. Vitamin D 25-hydroxy 28. Thyroid profile is within normal limit. PTH intact is 224, which is elevated. Blood type A+. Chest x-ray was done today for fever, which shows improving pulmonary edema, cardiomegaly, improving pulmonary vascular congestion, improved pulmonary parenchymal infiltrate. The patient had a cardiac catheterization done yesterday. The results of which were noted and explained to the patient at length. IMPRESSION: 1. High grade new fever of 102.8. 2. Chest wall reproducible pain. 3. Abdominal pain, chest pain, shortness of breath. 4. High-grade fever of 102.8. 5. Sinus tachycardia. 6. Hypoxemia. 7. Normocytic anemia of chronic disease and chronic kidney disease. 8. Granulocytosis. 9. Leukocytosis. 10. Transient lactic acidosis. 11. Hyperprocalcitoninemia. 12. Hypovitaminosis D. 13. Hypertriglyceridemia. 14. Hypomagnesemia. 15. Hyperphosphatemia. 16. Increased anion gap metabolic acidosis. 17. Non-hemolyzed hyperkalemia. 18. Hyperphosphatemia. 19. Transaminitis. 20. History of multivessel coronary artery disease, history of multiple angioplasty and stent placement. 21. Hypertension. 22. Human immunodeficiency virus acquired immune deficiency syndrome. 23. Status post cardiac catheterization. 24. Mildly dilated and minimally globally hypokinetic left ventricle with ejection fraction 50%. 25. Diffuse right coronary artery atherosclerosis with 50% lesion of the mid and distal RCA. 26. 80% stenosis of the small distal posterior descending artery. 27. Patent stents x2 of the left circumflex artery. 28. Patent stent of the left anterior descending artery. 29. Left ventricular ejection fraction of 50%. 30. Resolving pulmonary edema and pulmonary vascular congestion. 31. Cardiomegaly. 32. Sinus tachycardia. 33. Left atrial enlargement. 34. Narcotic seeking behavior. 35. End-stage renal disease, hemodialysis dependent three times a week via the left upper extremity AV fistula. 36. Chronic pain syndrome. 37. Secondary hyperparathyroidism. 38. Secondary hyperparathyroidism with elevated PTH of 224. 39. Anxiety disorder. 40. Constipation. 41. Hyperlipidemia. 42. Gastroparesis. 43. Hypothyroidism. PLAN AT THIS TIME: The patient has been ordered repeat labs. Blood and sputum cultures have been ordered. Current consultation; Nephrology, Cardiology, Gastroenterology, Interventional Radiology and Infectious Disease. The patient has been typed and cross matched for packed RBC for transfusion of 1 unit of PRBC on hemodialysis tomorrow. The patient is on Mucomyst nebulizer 20% 4 mL every 6 hours with Xopenex nebulizer every 6 hours. Patient is on hydroxyzine 25 mg b.i.d. p.r.n., PhosLo 1334 mg three times a day, Colace 100 mg three times a day, Prezista 1 tablet at bedtime, doxycycline 100 mg p.o. every 12, Drisdol 50,000 units weekly, Ecotrin 81 mg daily, folic acid 1 mg daily, Lidoderm 5% patch to the affected area, Linzess 290 mcg daily, Lipitor 80 mg at bedtime, Lopressor 50 mg twice a day, Lovaza 1 g twice a day, meropenem 500 mg daily, MiraLax 17 g twice a day, nitro paste 1 inch every 6, Protonix 40 mg daily, Reglan 5 mg IV before meals and at bedtime, Synthroid 25 mcg daily, multivitamin 1 tablet daily, Tylenol 650 every 6 p.r.n. The patient was given a dose of vancomycin 1 g stat, Xanax 0.25 every 8 p.r.n., Xopenex nebulizer 0.63 mg every 6 hours, Zofran 4 mg IV every 4 p.r.n. Chest PT, incentive spirometry, oxygen therapy has been ordered. Renal diet ordered. Out of bed, HUNTER stockings, SCDs, physical therapy, occupational therapy ordered. The patient was seen by the physical therapist today. Their recommendation is patient can be discharged. Not a candidate for physical therapy. The patient is updated about her condition, diagnosis, treatment plan, management plan, and recommendation by all the physician and the director of health care marketing involved in the care of the patient, which she acknowledged and understand. At this time, the patient's further disposition and treatment management will be dependent upon the recommendation by Infectious Disease, Cardiology and Nephrology and Gastroenterology. Dictated and electronically signed, not read. Ranjith Rubalcava MD
[2017-09-25] MEDS: Levalbuterol 0.63 MG/3 ML Inhal Soln UD IH SCH ×4 (02:11→20:57)
[2017-09-25] MEDS: Acetylcysteine 20% Inhal Soln (4ml) IH SCH ×4 (02:11→20:57)
[2017-09-25] MEDS: Nitroglycerin 2% Ointment Foilpak UD TOP SCH ×4 (05:20→18:27)
[2017-09-25] MEDS: Pantoprazole 40 mg EC Tab PO SCH ×2 (06:00→08:53)
[2017-09-25] MEDS: Levothyroxine 25 MCG TAB PO SCH (06:00)
[2017-09-25 07:05] LABS: BASO # 0.02 K/mm3 (0.0-2.0); BASO % 0.2 % (0.0-3.0); EOS # 0.1 (0.0-0.7); EOS % 0.7 % (1.5-5.0); GRAN # 9.99 (1.4-6.5); GRAN % 89.1 % (50.0-68.0); HEMOGLOBIN 8.3 g/dL (12.0-16.0); LYMPH # 0.7 (1.2-3.4); LYMPH % 6.4 % (22.0-35.0); MEAN CELL VOLUME 100.4 fl (80.0-105.0); MEAN CORPUSCULAR HGB CONC 31.9 g/dl (31.0-37.0); MEAN PLATELET VOLUME 10.4 fl (7.0-11.0); MONO # 0.4 (0.1-0.6); MONO % 3.6 % (1.0-6.0); RBC 2.59 10^6/uL (3.5-6.1); RED CELL DISTRIBUTION WIDTH 17.6 % (11.5-14.5); WHITE BLOOD COUNT 11.2 10^3/ul (4.5-11.0)
[2017-09-25 07:17] LABS: ALB/GLOB RATIO 0.9 (1.1-1.8); ALBUMIN 3.9 g/dL (3.0-4.8); BILIRUBIN,DIRECT 0.6 mg/dL (0.0-0.4)
[2017-09-25 07:26] LABS: ALB/GLOB RATIO 0.9 (1.1-1.8); ALBUMIN 3.8 g/dL (3.0-4.8); CALCIUM 7.4 mg/dL (8.4-10.5)
[2017-09-25] MEDS: Omega-3-Acid Ethyl Esters 1 GM Cap PO SCH ×2 (09:14→18:25)
[2017-09-25] MEDS: Lidocaine 5% Oint(35 gm) TOP SCH (09:14)
[2017-09-25] MEDS: Multivitamin Therapeutic Tab PO SCH (09:14)
[2017-09-25] MEDS: CALCIUM ACETATE PO SCH ×2 (09:24→15:08)
[2017-09-25] MEDS: Lidocaine 5% Patch TD SCH ×2 (09:25→15:09)
[2017-09-25] MEDS: Linaclotide [Linzess] PO SCH (09:25)
[2017-09-25] MEDS: POLYETHYLENE GLYCOL 3350 17 GM/Dose PACKET PO SCH ×2 (09:27→18:27)
[2017-09-25] MEDS ORDERED: Magnesium Sulfate 2 GM in Sodium Chloride 0.9% 100 ML IV ONE (09:33)
[2017-09-25] MEDS ORDERED: Meropenem 500 MG in Sodium Chloride 0.9% 50 ML IVPB SCH (10:00)
--- NOTE | 2017-09-25 10:21 | PN ---
DATE: 09/25/2017 SUBJECTIVE: The patient is lying in bed. She denies any shortness of breath or chest pain. She denies abdominal pain. PHYSICAL EXAMINATION: VITAL SIGNS: Reveal she is afebrile, blood pressure of 133/75, heart rate 95. HEENT: Reveal sclerae to be white. Oral mucosa is moist. NECK: Supple. CHEST: Reveals lungs to be clear. HEART: Reveals regular rate and rhythm. ABDOMEN: Soft, nontender. EXTREMITIES: Show no edema. She does have an AV fistula in her left arm. LABORATORY DATA: Reveal white blood cell count 11.2, hemoglobin 8.3. Chemistries reveal BUN of 56, creatinine of 9.6, AST 131, ALT 68, alk phos of 142. IMPRESSION: 1. Congestive heart failure. 2. End-stage renal disease, on hemodialysis. 3. Chronic anemia. 4. Human immunodeficiency virus positivity. 5. Chronic abdominal pain. RECOMMENDATIONS: Continue current treatment. No plans for any further GI testing. Paul Snider MD
--- NOTE | 2017-09-25 14:57 | US ---
HISTORY: Fever and transaminitis COMPARISON: None. TECHNIQUE: Sonographic evaluation of the abdomen. FINDINGS: LIVER: Measures 18.8 cm. Normal echogenicity of the liver parenchyma. No mass. No intrahepatic bile duct dilatation. GALLBLADDER: Removed COMMON BILE DUCT: Measures 6 mm. No stones. No dilatation. PANCREAS: Unremarkable as visualized. No mass. No ductal dilatation. RIGHT KIDNEY: Measures 6.7 x 1.8 x 2.3cm. Atrophic echogenic kidneys. Patient is a dialysis patient long-term LEFT KIDNEY: Measures 6 x 2.7 x 2.9cm. Atrophic echogenic kidneys SPLEEN: Normal in size and contour. No mass. 9.7 x 4.3 x 3.5 AORTA: No aneurysmal dilatation. IVC: Unremarkable. OTHER FINDINGS: None. IMPRESSION: No acute intra-abdominal findings
--- NOTE | 2017-09-25 15:22 | CT ---
PROCEDURE: CT Chest, Abdomen and Pelvis without intravenous contrast HISTORY: Fever and transaminitis COMPARISON: None. TECHNIQUE: Radiation dose: Total exam DLP = 320.31 mGy-cm. This CT exam was performed using one or more of the following dose reduction techniques: Automated exposure control, adjustment of the mA and/or kV according to patient size, and/or use of iterative reconstruction technique. FINDINGS: CT CHEST WITHOUT CONTRAST: LUNGS: No focal consolidation. Heterogeneous bilateral multi lobar ground-glass opacity . Nonspecific finding. This may be infectious or inflammatory in etiology. No focal mass. MEDIASTINUM: Normal a.m. under of ascending thoracic aorta. Mild dilatation of the main pulmonary artery to a diameter of 3.3 cm. Correlate with any history of pulmonary arterial hypertension. Mild cardiomegaly. Coronary arterial calcification. No pericardial effusion. LYMPH NODES: Unremarkable. PLEURA: Unremarkable. No pneumothorax. No pleural fluid. BONES: Unremarkable. OTHER FINDINGS: None. CT ABDOMEN AND PELVIS: LIVER: Mild hepatomegaly. The liver measures 20.4 cm craniocaudal. Smooth contour. No mass. No biliary dilatation. GALLBLADDER AND BILE DUCTS: Status post cholecystectomy PANCREAS: Unremarkable. No gross lesion or ductal dilatation. SPLEEN: Unremarkable. ADRENALS: Unremarkable. No mass. KIDNEYS AND URETERS: Severely atrophic kidneys consistent with chronic renal disease. Renal vascular calcification. VASCULATURE: Unremarkable. No aortic aneurysm. BOWEL: Unremarkable. No obstruction. No gross mural thickening. APPENDIX: Normal appendix. PERITONEUM: Mild ascites. No pneumoperitoneum. LYMPH NODES: Unremarkable. No enlarged lymph nodes. BLADDER: Decompressed REPRODUCTIVE: Unremarkable uterus BONES: No acute fracture. OTHER FINDINGS: None. IMPRESSION: Mild ascites, uncertain etiology. Bilateral renal atrophy. Mild hepatomegaly. Status post cholecystectomy. Heterogeneous multi lobar bilateral ground-glass opacity common nonspecific. Possible infectious etiology. Cardiomegaly. Coronary arterial calcification. Mild dilatation of main pulmonary artery.
--- NOTE | 2017-09-25 17:35 | CP.PCM.PN ---
Subjective - Date & Time of Evaluation Date of Evaluation: 09/25/17 Time of Evaluation: 08:15 - Subjective Subjective: Medicine progress note: Dr. Rubalcava Patient seen and examined at bedside. Denies any new complaints, is due for dialysis today. Patient did spike another fever overnight. Objective - Vital Signs/Intake and Output Vital Signs (last 24 hours): Temp Pulse Resp BP Pulse Ox 98.7 F 74 20 137/70 100 09/25/17 12:50 09/25/17 12:50 09/25/17 12:50 09/25/17 12:50 09/25/17 06:00 Intake and Output: 09/25/17 09/25/17 06:59 18:59 Intake Total 780 Balance 780 - Medications Medications: Current Medications Acetaminophen (Tylenol 325mg Tab) 650 mg PO Q6 PRN PRN Reason: TEMP>=99.5F Last Admin: 09/25/17 04:49 Dose: 650 mg Acetylcysteine (Acetylcysteine 20%) 4 ml IH [id number] [facility] Last Admin: 09/25/17 13:04 Dose: Not Given Alprazolam (Xanax) 0.25 mg PO Q8H PRN; Protocol PRN Reason: Anxiety Stop: 10/02/17 19:31 Last Admin: 09/24/17 21:11 Dose: 0.25 mg Aspirin (Ecotrin) 81 mg PO 0800 [facility] Last Admin: 09/25/17 08:52 Dose: 81 mg Atorvastatin Calcium (Lipitor) 80 mg PO HS [facility] Last Admin: 09/24/17 22:00 Dose: Not Given Calcium Acetate (Phoslo) 1,334 mg PO TID [facility] Docusate Sodium (Colace) 100 mg PO TID [facility] Last Admin: 09/25/17 15:09 Dose: Not Given Doxycycline Hyclate (Doryx) 100 mg PO Q12 [facility] PRN Reason: Protocol Last Admin: 09/25/17 09:20 Dose: Not Given Ergocalciferol (Drisdol 50,000 Intl Units Cap) 1 cap PO Q7D [facility] Last Admin: 09/22/17 19:47 Dose: Not Given Folic Acid (Folic Acid) 1 mg PO DAILY [facility] Last Admin: 09/25/17 09:14 Dose: 1 mg Hydroxyzine HCl (Atarax) 25 mg PO BID PRN PRN Reason: Anxiety Last Admin: 09/23/17 17:44 Dose: 25 mg Clindamycin Phosphate 900 mg/ (Sodium Chloride) 106 mls @ 106 mls/hr IVPB Q8 [facility] PRN Reason: Protocol Stop: 10/04/17 17:14 Meropenem 250 mg/ Sodium (Chloride) 100 mls @ 100 mls/hr IVPB Q12H [facility] PRN Reason: Protocol Stop: 10/04/17 17:16 Levalbuterol HCl (Xopenex) 0.63 mg IH [id number] [facility] Last Admin: 09/25/17 13:05 Dose: Not Given Levothyroxine Sodium (Synthroid) 25 mcg PO 0600 [facility] Last Admin: 09/25/17 06:00 Dose: 25 mcg Lidocaine (Lidoderm) 2 ea TD DAILY [facility] Last Admin: 09/25/17 15:09 Dose: Not Given Lidocaine (Lidocaine 5%) 0 gm TOP DAILY [facility] Last Admin: 09/25/17 09:14 Dose: 1 applic Lidocaine (Lidoderm) 1 ea TD DAILY [facility] Last Admin: 09/25/17 09:25 Dose: 1 ea Metoclopramide HCl (Reglan) 5 mg IVP ACHS [facility] Last Admin: 09/25/17 15:10 Dose: Not Given Metoprolol Tartrate (Lopressor) 50 mg PO 0800,1800 [facility] Last Admin: 09/25/17 08:52 Dose: 50 mg Multivitamins (Thera Tab) 1 tab PO DAILY [facility] Last Admin: 09/25/17 09:14 Dose: 1 tab Nitroglycerin (Nitro-Bid 2% Oint) 1 ea TOP Q6 [facility] Last Admin: 09/25/17 15:10 Dose: Not Given Darunavir [Prezista] 1 tab PO HS [facility] Last Admin: 09/24/17 21:00 Dose: Not Given Linaclotide [Linzess (]) 1 cap PO DAILY [facility] Last Admin: 09/25/17 09:25 Dose: Not Given Rdhoe-4-Bubm Ethyl Esters (Lovaza) 1 gm PO BID [facility] Last Admin: 09/25/17 09:14 Dose: 1 gm Ondansetron HCl (Zofran Inj) 4 mg IVP Q4H PRN PRN Reason: Nausea/Vomiting Pantoprazole Sodium (Protonix Ec Tab) 40 mg PO ACB [facility] Last Admin: 09/25/17 08:53 Dose: Not Given Polyethylene Glycol (Miralax) 17 gm PO BID [facility] Last Admin: 09/25/17 09:27 Dose: Not Given Primaquine Phosphate (Primaquine) 26.3 mg PO DAILY [facility] PRN Reason: Protocol Stop: 10/04/17 17:15 - Labs Labs: 09/25/17 06:20 09/25/17 06:20 PT 12.8 SECONDS (9.4-12.5) H 09/22/17 16:05 INR 1.12 (0.93-1.08) H 09/22/17 16:05 APTT 23.4 Seconds (25.1-36.5) L 09/22/17 16:05 - Constitutional Appears: Well - Head Exam Head Exam: ATRAUMATIC, NORMAL INSPECTION, NORMOCEPHALIC - Eye Exam Eye Exam: EOMI, Normal appearance, PERRL Pupil Exam: NORMAL ACCOMODATION, PERRL - ENT Exam ENT Exam: Mucous Membranes Moist, Normal Exam - Neck Exam Neck Exam: Full ROM, Normal Inspection. absent: Lymphadenopathy - Respiratory Exam Respiratory Exam: Clear to Ausculation Bilateral, NORMAL BREATHING PATTERN - Cardiovascular Exam Cardiovascular Exam: REGULAR RHYTHM, +S1, +S2. absent: Murmur - GI/Abdominal Exam GI & Abdominal Exam: Soft, Normal Bowel Sounds. absent: Tenderness - Extremities Exam Extremities Exam: Full ROM, Normal Capillary Refill, Normal Inspection. absent : Joint Swelling, Pedal Edema - Back Exam Back Exam: NORMAL INSPECTION - Neurological Exam Neurological Exam: Alert, Awake, CN II-XII Intact, Normal Gait, Oriented x3 - Psychiatric Exam Psychiatric exam: Normal Affect, Normal Mood - Skin Skin Exam: Dry, Intact, Normal Color, Warm Assessment and Plan - Assessment and Plan (Free Text) Assessment: 57yo female with history of HIV, [place], CAD w/ stent placement, Medical non- compliance, ESRD on dialysis (T, Th, Sat), and chronic anemia presents w/ SOB in setting of chest pain. Chest XR unremarkable for acute disease. EKG yesterday and today showed sinus tachycardia without ST changes. Troponins trended upward .03-->.11-->.15, and patient's BNP was elevated at 108K, but she has chronic CHF. Patient also had other electrolyte imbalances on admission, and was in need of dialysis - kayexelate and calcium gluconate were ordered, dialysis was performed yesterday. Patient's blood gas was unremarkable with exception of low oxygen. Patient was also complaining of abdominal pain. Lipase was mildly elevated but not in pancreatitis range. She was given zofran in ED and on the floors. Patient spiked a fever overnight again, septic workup pending. Chest XR without any acute disease. Plan: Fever - Septic work up pending - reyes cultures - Meropenem - dose renally - CT Chest, Abdomen, Pelvis; Ultrasound abdomen complete - ID Consult: Dr. Rodriguez Chest Pain Rule Out ACS - Resolved - Continue beta iban, ASA, plavix, lipitor - Cardiolgy Consult: Dr. Tran Per Dr. Tran, most likely troponin elevation was not cardiac related - Discontinue telemetry Anemia, likely 2/2 CKD - Give 1 unit of blood today during dialysis Hyperkalemia - Dialysis; kayexalate if needed - Monitor EKG for changes Abdominal pain - Zofran PRN - GI Consult: Dr. Snider No further GI workup necessary at this time HIV Infection - Continue home medications - In light of recent fevers, CD4+ count, viral load count ESRD on HD - Nephrology Consult: Dr. Crump - Dialysis as per schedule - Repeat CMP after dialysis today scheduled for 6PM - Continue home medications History CAD -Continue beta iban, ASA, statin, plavix History of Hypothyroidism -Continue home synthroid GI/DVT Prophlyaxis -Protonix/Heparin SC
[2017-09-25] MEDS: Primaquine 26.3 mg Tab PO SCH (18:25)
--- NOTE | 2017-09-25 18:59 | PN ---
DATE: 09/25/2017 SUBJECTIVE: The patient is seen in the dialysis unit. She seems to be sleeping comfortably. PHYSICAL EXAMINATION: GENERAL: Middle-aged lady sitting in chair in the dialysis unit. VITAL SIGNS: Blood pressure 137/70, heart rate 74, respiratory rate 18, temperature 98. HEENT: Normocephalic, atraumatic, positive pallor. NECK: Supple, no JVD. LUNGS: Bilateral equal air entry, bilateral equal expansion, no rales. CARDIAC: S1 and S2, regular rate and rhythm, no murmur, no rub. ABDOMEN: Distended, soft, nontender, bowel sounds present. EXTREMITIES: No lower extremity edema. INTAKE AND OUTPUT: Not charted. LABORATORY DATA: WBC 11, hemoglobin 8.3, hematocrit 26, platelets 143. Sodium 139, potassium 4.5, chloride 92, CO2 of 28, BUN 55, creatinine 9.6, glucose 134, calcium 7.4, phosphorus 5.6, magnesium 1.4. Albumin 3.9, AST 131, ALT 68. Blood cultures from yesterday, no growth so far. CT of the chest, abdomen and pelvis, heterogeneous bilateral multilobar ground-glass opacity in the lungs, mild ascites, cardiomegaly. Abdominal ultrasound unremarkable. CURRENT MEDICATIONS: Mucomyst, Atarax, Colace, darunavir, doxycycline, aspirin, folic acid, Lidoderm, Linzess, Lipitor, Lopressor, Lovaza, PhosLo, Protonix, Reglan, Synthroid, Tylenol, Xanax, Xopenex, and Zofran. ASSESSMENT: 1. Chest pain, shortness of breath,? etiology, pulmonary. 2. Severe hypocalcemia. 3. Hypertension. 4. Human immunodeficiency. 5. End-stage renal disease. 6. Severe anemia. 7. Hyperphosphatemia. 8. Elevated liver function tests. 9. Abnormal chest CT with ground-glass opacities in both lungs. PLAN: 1. ID evaluation. 2. Empiric antibiotics? 3. Replace calcium, IV. 4. Follow up cultures. 5. Stable dialysis today. Meryl Shukla MD [facility] # [id number]
[2017-09-25] MEDS: DARUNAVIR PO SCH (22:09)
[2017-09-26] MEDS: Nitroglycerin 2% Ointment Foilpak UD TOP SCH ×2 (00:16→05:21)
[2017-09-26] MEDS: Acetylcysteine 20% Inhal Soln (4ml) IH SCH ×4 (01:23→20:35)
[2017-09-26] MEDS: Levalbuterol 0.63 MG/3 ML Inhal Soln UD IH SCH ×4 (01:23→20:35)
[2017-09-26] MEDS: Levothyroxine 25 MCG TAB PO SCH (05:21)
[2017-09-26 06:57] LABS: BASO # 0.02 K/mm3 (0.0-2.0); BASO % 0.3 % (0.0-3.0); EOS # 0.4 (0.0-0.7); EOS % 6.1 % (1.5-5.0); GRAN # 4.96 (1.4-6.5); GRAN % 72.5 % (50.0-68.0); HEMOGLOBIN 10.1 g/dL (12.0-16.0); LYMPH # 1.1 (1.2-3.4); LYMPH % 15.5 % (22.0-35.0); MEAN CELL VOLUME 97.5 fl (80.0-105.0); MEAN CORPUSCULAR HEMOGLOBIN 31.6 pg (25.0-35.0); MEAN CORPUSCULAR HGB CONC 32.4 g/dl (31.0-37.0); MEAN PLATELET VOLUME 10.7 fl (7.0-11.0); MONO # 0.4 (0.1-0.6); MONO % 5.6 % (1.0-6.0); RBC 3.2 10^6/uL (3.5-6.1); RED CELL DISTRIBUTION WIDTH 18.3 % (11.5-14.5); WHITE BLOOD COUNT 6.8 10^3/ul (4.5-11.0)
[2017-09-26 07:23] LABS: ALB/GLOB RATIO 0.9 (1.1-1.8); ALBUMIN 4.1 g/dL (3.0-4.8); CALCIUM 8.7 mg/dL (8.4-10.5)
[2017-09-26 07:24] LABS: ALB/GLOB RATIO 0.9 (1.1-1.8); ALBUMIN 4.1 g/dL (3.0-4.8); BILIRUBIN,DIRECT 0.5 mg/dL (0.0-0.4)
--- NOTE | 2017-09-26 08:10 | CON ---
DATE: 09/25/2017 LOCATION: The patient is seen in bed early this morning. CHIEF COMPLAINT: Fever times several days. HISTORY OF PRESENT ILLNESS: This is a 57-year-old female known to me from multiple admissions, history of HIV and end-stage AIDS, noncompliant to her HIV medications, history of chronic renal failure on hemodialysis, history of anemia, hyperparathyroidism, hypertension, coronary artery disease, pancreatitis. The patient has a history of cholecystectomy, history of PTCA and left arm fistula placement, who is ALLERGIC TO MAVIS INHIBITORS, who was admitted to the emergency room, mostly complaining of shortness of breath. She is found to have fevers. Infectious Disease consultation requested. REVIEW OF SYSTEMS: Reveals the patient's shortness of breath has gotten worse, fevers and the patient's shortness of breath is . No abdominal pain. No diarrhea. No constipation. No bright red blood per rectum. No melena. PAST MEDICAL HISTORY: Significant for chronic renal failure, hemodialysis, positive HIV and end-stage AIDS with last T-cells last month was at 8%. Patient has HIV, nephropathy and anemia, hyperparathyroidism, hypertension, coronary artery disease and pancreatitis. PAST SURGICAL HISTORY: Significant for cholecystectomy, PTCA and a left arm fistula. ALLERGIES: THE PATIENT IS ALLERGIC TO MAVIS INHIBITORS. MEDICATIONS AT HOME: Include rosuvastatin, Protonix, metoprolol, folic acid, Mepron, aspirin; lamivudine, she is not compliant with; ritonavir and darunavir, also noncompliant with. She is on Mepron. She is also not compliant with abacavir. PHYSICAL EXAMINATION: GENERAL: Patient is in bed. VITAL SIGNS: Temperature of 99, T-max was 103.2 and prior to that was 102.2 with a heart rate of 91, respiratory rate of 22, blood pressure is 94/80, saturation at 94% with nasal cannula. HEENT: Unremarkable. There is oral thrush. NECK: Supple. LUNGS: Have decreased breath sounds. HEART: Normal S1 and S2. ABDOMEN: Soft, nontender. No rebound. No guarding. LABORATORY DATA: Reveals the patient's white count to be 9,000, hemoglobin of 9, platelets of 229, and 69% granulocytosis. Chemistries reveals a BUN of 36, creatinine is 9.6. LFTs are elevated. Troponin is noted at 0.151 . Procalcitonin is elevated at 15 and blood cultures are reported to be negative. Chest x-ray is noted questionable interstitial findings. Had a CAT scan of the chest also with interstitial findings. ASSESSMENT AND PLAN: This is a 57-year-old female with end-stage acquired immune deficiency syndrome, nephropathy, chronic renal failure, on hemodialysis, hyperparathyroidism, anemia, hypertension, coronary artery disease, pancreatitis, now with severe sepsis and health-care associated pneumonia, must rule out underlying Pneumocystis carinii pneumonia. We will order an lactate dehydrogenase and a Fungitell (1-3)-etvz-I-ghtfdm assay, cryptococcal antigen, cytomegalovirus PCR antibody and we will start the patient on Pneumocystis carinii pneumonia therapy with clindamycin, primaquine and meropenem. Patient is also on doxycycline. We will follow the patient closely and history of pancreatitis and we will order urine for Legionella antigen and the patient's Zithromax and quinolones. We will make further recommendations upon availability of the initial results. Meliton Rodriguez MD
[2017-09-26] MEDS: Pantoprazole 40 mg EC Tab PO SCH (08:19)
[2017-09-26 08:34] LABS: ARTERIAL BLOOD GAS HCO3 27.6 mmol/L (21-28); ARTERIAL BLOOD GAS HEMOGLOBIN 9.3 g/dL (11.7-17.4); ARTERIAL BLOOD GAS O2 CAPACITY 12.7 mL/dl (16-24); ARTERIAL BLOOD GAS O2 CONTENT 12.1 ML/dl (15-23); ARTERIAL BLOOD GAS O2 SAT 95.2 % (95-98); ARTERIAL BLOOD GAS PCO2 37 mm/Hg (35-45); ARTERIAL BLOOD GAS PH 7.48 (7.35-7.45); ARTERIAL BLOOD GAS TCO2 28.7 mmol.L (22-28)
[2017-09-26] MEDS: Lidocaine 5% Oint(35 gm) TOP SCH (10:23)
[2017-09-26] MEDS: Lidocaine 5% Patch TD SCH ×2 (10:24→10:26)
[2017-09-26] MEDS: POLYETHYLENE GLYCOL 3350 17 GM/Dose PACKET PO SCH ×2 (10:27→17:38)
[2017-09-26] MEDS: Linaclotide [Linzess] PO SCH (10:27)
[2017-09-26] MEDS: Omega-3-Acid Ethyl Esters 1 GM Cap PO SCH ×2 (10:47→17:53)
[2017-09-26] MEDS: Primaquine 26.3 mg Tab PO SCH (10:49)
[2017-09-26] MEDS: Multivitamin Therapeutic Tab PO SCH (10:50)
--- NOTE | 2017-09-26 12:57 | PN ---
DATE: 09/26/2017 CARDIOLOGY FOLLOWUP SUBJECTIVE: The patient is comfortable without shortness of breath, without chest pain. PHYSICAL EXAMINATION: VITAL SIGNS: Blood pressure is 118/76, the heart rate is in the 80s. NECK: Negative JVD. LUNGS: Without rales. HEART: S1 and S2. EXTREMITIES: Without edema. LABORATORY DATA: Hemoglobin is 10.1. Chemistries: BUN and creatinine 22 and 6.9. IMPRESSION: 1. Stable angina. 2. Coronary artery disease. 3. End-stage renal disease. 4. Pneumonia. 5. History of human immunodeficiency virus positivity. 6. Hypercholesterolemia. Given these findings, the patient's cardiac status is stable. She is on continued IV antibiotics. Derrick Tran MD
--- NOTE | 2017-09-26 14:25 | PN ---
DATE: 09/26/2017 LOCATION: The patient is seen in room 560, bed 2. SUBJECTIVE: The patient is ambulating in the room without any assistance. The patient has been talking on the phone with the patient's family. The patient does not appear to be in any distress. Overnight nurse's notes were reviewed. The patient was not noted to be in any distress in the last 24 hours. The patient had an uneventful night also. PHYSICAL EXAMINATION: VITAL SIGNS: In the last 48 hours, T-max is 103.2 on 09/24/2017 at 2037. In the last 24 hours, the patient's T-max is 99.4; heart rate 78, 82; blood pressure 118/76, 154/88,108/70, 137/70, 147/86; respirations 20; O2 sat 95% to 97% to100%. HEAD: Normocephalic, atraumatic. EENT: Shows positive frontal alopecia. Pinkish pale conjunctivae. Anicteric sclerae. No oropharyngeal lesion. No neck rigidity. CHEST: Kyphosis. LUNGS: Show positive rhonchi bilaterally. Decreased breath sound at the bases, left more than the right. CARDIOVASCULAR: Shows S1, S2, regular rhythm. Positive systolic murmur left sternal border, right second intercostal space, left second intercostal space. ABDOMEN: Soft. Positive bowel sounds. No guarding. No rigidity. No rebound tenderness. GENITALIA: Female. RECTAL: Deferred. EXTREMITIES: Show positive left upper extremity AV fistula, positive thrill. VASCULAR: Palpable pulses. NEUROLOGIC: The patient is alert, awake, and oriented x3. Cranial nerves II-XII intact. Gait examination is independent. PSYCHIATRIC: Negative at this time. DIAGNOSTICS: On 09/26/2017, WBC 6.8, hemoglobin and hematocrit are 10.1 and 31.2, platelet 133. Granulocytes 72% segs.. The patient has an ABG done on room air; pH of 7.48, pCO2 of 37, pO2 of 66, bicarb 28. O2 sat is 95%. Sodium 143, potassium 4.2, chloride 97, CO2 of 29, anion gap 22, BUN 35, creatinine 6.9, GFR 7, glucose 114, calcium 8.7, phosphorus 5.3, magnesium 2.5. AST is 125, ALT is 73, alkaline phosphatase is 148. LDH is 915. Total protein 8.6, albumin 4.1. Sputum cultures pending. Blood cultures negative at 24 hours. The patient received 1 unit of PRBC. Ultrasound of the abdomen and CAT scan of the chest, abdomen, and pelvis are noted. EKG was reviewed. IMPRESSION: 1. High-grade fever. 2. Severe sepsis with healthcare-associated multilobar pneumonia. 3. End-stage acquired immunodeficiency syndrome. 4. End-stage renal disease, hemodialysis dependent. 5. Anemia of chronic disease, status post packed red blood cell transfusion x1. 6. Hypertension. 7. Tachycardia. 8. Pancreatitis. 9. Questionable and possible Pneumocystis jiroveci pneumonia. 10. Hypoxemia. 11. Granulocytosis. 12. Leukocytosis. 13. Transfusion-dependent anemia. 14. Transient lactic acidosis. 15. Non-hemolyzed hyperkalemia. 16. Hyperphosphatemia. 17. Secondary hyperparathyroidism with elevated PTH of greater than 220. 18. Hypomagnesemia. 19. Severe transaminitis, etiology undetermined. 20. Hypovitaminosis D. 21. Hyperprocalcitoninemia. 22. History of hyperlipidemia, hypertriglyceridemia. 23. Bilateral multilobar ground-glass opacities. 24. Pulmonary hypertension. 25. Questionable bilateral multilobar pneumonia versus inflammatory lung disease. 26. Hepatomegaly. 27. Status post cholecystectomy. 28. End-stage renal disease with bilateral renal atrophy and renal vascular calcification. 29. Mild ascites. 30. Status post cardiac catheterization. 31. Left ventricle ejection fraction of 50% on cardiac catheterization with mildly dilated and minimal global hypokinesis. 32. Diffuse atherosclerosis of the right coronary artery with two 50% lesions of the mid and the distal right coronary artery. 33. An 80% stenosis of the small distal posterior descending artery. 34. Patent stents of the left circumflex artery. 35. Patent stent of the left anterior descending and diagonal vessel. 36. Patent stents of the left anterior descending artery and left circumflex artery and patent angioplasty sites of the right coronary artery. 37. An 80% stenosis of the distal portion of the posterior descending artery. 38. Chronic narcotic-dependent pain syndrome (resolved). 39. Sinus tachycardia. 40. Hypertensive cardiovascular disease. 41. Severe noncompliance and poor compliance. 42. Reproducible chest wall and ribcage pain. 43. Advanced human immunodeficiency virus and acquired immune deficiency syndrome. 44. Severe sepsis with bilateral multilobar pneumonia versus inflammatory lung disease. 45. Chronic pain syndrome. 46. Narcotic seeking behavior. 47. History of constipation. 48. Hypothyroidism. 49. Anxiety disorder. PLAN: The patient at present has been seen by infectious disease and seen by cardiology. Current consultation: Cardiology, nephrology, infectious disease, and gastroenterology. The patient has been ordered serial labs and serial antibiotics. The patient has been ordered serial CBC, CMP, LFT, magnesium, and phosphorus. The patient has been ordered HIV viral load, lymphocyte subset, CMV, Cryptococcus, Fungitell glucagon assay, D glucagon assay. Blood and sputum cultures are ordered. The patient is presently on Mucomyst nebulizer 20% 4 mL with Xopenex nebulizer every 6 hours, hydroxyzine 25 mg twice a day p.r.n. The patient is on clindamycin 900 mg IV every 8 hours, Colace 100 mg three times a day, Prezista 800 mg daily, doxycycline 100 mg p.o. every 12 hours, Drisdol 50,000 weekly, Ecotrin 81 mg daily, folic acid 1 mg daily, Lidoderm 5% patch to the affected area, Linzess daily, Lopressor 50 mg twice a day, Lovaza 1 g twice a day, meropenem 250 IV every 12 hours, MiraLax 17 g twice a day, PhosLo 1334 mg three times a day, primaquine 26.3 mg daily, Protonix 40 mg daily, Reglan 5 mg IV before meals and at bedtime, Synthroid 25 mcg daily, multivitamin 1 tablet daily, Tylenol 650 every 6 hours p.r.n., Xanax 0.25 every 8 hours p.r.n., Xopenex nebulizer 0.63 mg every 6 hours, Zofran 4 IV every 4 hours. The patient has ordered chest PT, incentive spirometry, renal diet, out of bed, physical therapy, occupational therapy ordered. At present, the patient is seen by the physical therapist day before yesterday, on 09/24/2017. Their recommendation is the patient was not a candidate for physical therapy. The patient's repeat EKG from today was reviewed, which shows sinus rhythm, slightly prolonged QT interval. The patient at this time will be continued on IV antibiotics and treatment as per infectious disease. The patient will be continued to be monitored closely. We will await further recommendation by infectious disease, nephrology, cardiology, gastroenterology. In addition, we will continue hemodialysis three times a week via the left upper extremity AV fistula on Friday, , Friday. The patient has been updated about her condition, diagnoses, test results, recommendation by all the physicians involved in the care of the patient has been explained and discussed with the patient at length and all questions concerned answered, which she acknowledged understand. Dictated and electronically signed, not read. Ranjith Rubalcava MD
--- NOTE | 2017-09-26 14:54 | CARD ---
APPROVED REPORT EKG Measurement Heart [id number] <Conclusion> Normal sinus rhythm Prolonged QT Abnormal ECG
--- NOTE | 2017-09-26 15:06 | PN ---
DATE: 09/25/2017 SUBJECTIVE: The patient is seen in room 560, bed 2. The patient is seen lying in the bed. The patient is also ambulating in the room independently. Overnight nurse's notes were reviewed. The patient rested comfortably without any distress according to the nurses' notes. The patient's temperature was 99.2. The patient refused doxycycline and T-max went up to 103.2. OBJECTIVE: VITAL SIGNS: T-max in the last 24 hours is 103.2, down to 102.2, down to 99.2 to 99.6 to 98.3. Heart rate 91, 95, 60, 81, 74; blood pressure is ranging 117/74, 113/73, 147/86; respirations 18 to 20; O2 sat is 94% to 100%. HEAD: Normocephalic, atraumatic. HEENT: Pale conjunctivae. Anicteric sclerae. No oropharyngeal lesion. NECK: No neck rigidity. CHEST: Kyphosis. LUNGS: Show positive rhonchi bilaterally. Decreased breath sound at the bases. CARDIOVASCULAR: S1 and S2, regular rhythm. Positive systolic murmur at the left sternal border, right second intercostal space, left second intercostal space. ABDOMEN: Soft. No guarding. No rigidity. No rebound tenderness. No deep tenderness noted. No hepatosplenomegaly noted. GENITALIA: Female. RECTAL: Deferred. EXTREMITIES: Show no pitting edema, no calf tenderness, no Homans sign. Positive left upper extremity AV fistula. NEUROLOGIC: The patient is alert, awake, and oriented x3. Motor strength is 5/5 in upper and lower extremities. Cranial nerves II through XII intact. Gait examination is independent. MUSCULOSKELETAL: Shows a body mass index of 23. DIAGNOSTICS: 09/25/2017: WBC is 11.2, hemoglobin and hematocrit 8.3 and 26, and platelets 143. Granulocytes, 89% segs. Sodium 139, potassium 4.5, chloride 92, CO2 of 28, anion gap 23. BUN 56, creatinine 9.6. GFR 5. Glucose 134. Calcium 7.4, phosphorus 5.6, magnesium 1.4. AST 132, ALT 69, alk phos 141 and 142. Total protein 8, albumin 3.9. Blood cultures negative. The patient was transfused one unit on dialysis today. The patient's CAT scan and ultrasound results were noted. IMPRESSION: 1. Severe sepsis with bilateral multilobar pneumonia versus inflammatory versus infectious lung disease. 2. Status post cholecystectomy. 3. Bilateral renal atrophy and echogenic kidneys. 4. Tachycardia. 5. Hypertension. 9. High-grade fever. 10. Bilateral multilobar heterogeneous ground glass pulmonary opacity, possibly pneumonia versus inflammatory pulmonary disease. 11. Pulmonary hypertension. 12. Cardiomegaly with coronary artery calcification. 13. Mild hepatomegaly. 14. Severely atrophic kidney disease with end-stage renal disease and renal vascular calcification. 15. Mild ascites. 16. End-stage renal disease, hemodialysis dependent 3 times a week via the left upper extremity arteriovenous fistula. 17. Leukocytosis with granulocytosis. 18. Anemia of chronic kidney disease with decreasing hemoglobin and hematocrit. 19. Status post packed red blood cell transfusion x1. 20. Lactic acidosis. 21. Hypoxemia. 22. Hypocalcemia. 23. Hyperphosphatemia with secondary hyperparathyroidism with elevated parathyroid hormone of greater than 224. 24. Hyperprocalcitoninemia. 25. Hypovitaminosis D. 26. Hypertriglyceridemia. 27. Hypothyroidism. 28. Transaminitis. 29. Status post cardiac catheterization. 30. Left ventricular ejection fraction of 50% with mildly dilated and minimal global hypokinesis. 31. Diffuse right coronary artery atherosclerosis with two 50% lesions of the mid and distal right coronary artery. 32. An 80% stenosis of the very distal small posterior descending artery. 33. Patent stent of the left circumflex artery. 34. Patent stent of the left anterior descending and diagonal vessel. 35. Sinus tachycardia. 36. Hypertensive cardiovascular disease. 37. Poor compliance. 38. History of noncompliance. 39. 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 PLAN: At this time, the patient has been ordered serial labs. The patient has been ordered HIV viral load, lymphocyte T-cell count ordered. The patient has been ordered Cryptococcus, CMV antigen. The patient has been ordered the blood cultures result. CURRENT CONSULTATION: Nephrology, Cardiology, Gastroenterology, Infectious Disease. TCU referral ordered. CURRENT MEDICATIONS: Mucomyst nebulizer every 6 hours with Xopenex nebulizer every 6 hours. Hydroxyzine 25 mg b.i.d. p.r.n. The patient is on Colace 100 three times a day, Prezista 800 mg at bedtime, doxycycline 100 mg p.o. every 12 hours, Drisdol 50,000 weekly, Ecotrin 81 mg daily, folic acid 1 mg daily, Lidoderm 5% patch to the affected area of the chest wall and ribcage, Linzess one capsule daily, Lopressor 50 twice a day, Lovaza 1 g twice a day. Patient on meropenem 500 mg daily, MiraLax 17 g twice a day, PhosLo 1334 mg three times a day, Protonix 40 mg daily, Synthroid 25 mcg daily, Reglan 5 mg IV before meals and at bedtime, Tylenol p.r.n., Xanax 0.25 every 8 p.r.n., Zofran 4 IV every 4 hours p.r.n. At this time, we are awaiting further recommendation by Infectious Disease, Nephrology, Cardiology regarding further management. The patient has been updated about her condition, diagnoses. Need for further inpatient management was discussed and explained to the patient at length, and all questions concerned answered. Dictated and electronically signed, not read. Ranjith Rubalcava MD
--- NOTE | 2017-09-26 15:23 | CP.PCM.PN ---
Subjective - Date & Time of Evaluation Date of Evaluation: 09/26/17 Time of Evaluation: 10:55 - Subjective Subjective: No fevers, no dysphagia, no nausea, no diarrhea, breathing better. Objective - Vital Signs/Intake and Output Vital Signs (last 24 hours): Temp Pulse Resp BP Pulse Ox 99.4 F 82 18 118/76 95 09/26/17 06:00 09/26/17 08:18 09/26/17 06:00 09/26/17 08:18 09/26/17 06:00 Intake and Output: 09/26/17 09/26/17 06:59 18:59 Intake Total 420 Balance 420 - Medications Medications: Current Medications Acetaminophen (Tylenol 325mg Tab) 650 mg PO Q6 PRN PRN Reason: TEMP>=99.5F Last Admin: 09/25/17 04:49 Dose: 650 mg Acetylcysteine (Acetylcysteine 20%) 4 ml IH [id number] [facility] Last Admin: 09/26/17 08:22 Dose: 4 ml Alprazolam (Xanax) 0.25 mg PO Q8H PRN; Protocol PRN Reason: Anxiety Stop: 10/02/17 19:31 Last Admin: 09/24/17 21:11 Dose: 0.25 mg Aspirin (Ecotrin) 81 mg PO 0800 [facility] Last Admin: 09/26/17 08:17 Dose: 81 mg Calcium Acetate (Phoslo) 1,334 mg PO TID [facility] Last Admin: 09/25/17 18:25 Dose: 1,334 mg Docusate Sodium (Colace) 100 mg PO TID [facility] Last Admin: 09/25/17 18:28 Dose: Not Given Doxycycline Hyclate (Doryx) 100 mg PO Q12 [facility] PRN Reason: Protocol Last Admin: 09/25/17 21:57 Dose: Not Given Ergocalciferol (Drisdol 50,000 Intl Units Cap) 1 cap PO Q7D [facility] Last Admin: 09/22/17 19:47 Dose: Not Given Folic Acid (Folic Acid) 1 mg PO DAILY [facility] Last Admin: 09/25/17 09:14 Dose: 1 mg Hydroxyzine HCl (Atarax) 25 mg PO BID PRN PRN Reason: Anxiety Last Admin: 09/23/17 17:44 Dose: 25 mg Clindamycin Phosphate 900 mg/ (Sodium Chloride) 106 mls @ 106 mls/hr IVPB Q8 [facility] PRN Reason: Protocol Stop: 10/04/17 17:14 Last Admin: 09/26/17 05:20 Dose: 106 mls/hr Meropenem 250 mg/ Sodium (Chloride) 100 mls @ 100 mls/hr IVPB Q12 [facility] PRN Reason: Protocol Last Admin: 09/25/17 22:10 Dose: 100 mls/hr Levalbuterol HCl (Xopenex) 0.63 mg IH [id number] [facility] Last Admin: 09/26/17 08:22 Dose: 0.63 mg Levothyroxine Sodium (Synthroid) 25 mcg PO 0600 [facility] Last Admin: 09/26/17 05:21 Dose: 25 mcg Lidocaine (Lidoderm) 2 ea TD DAILY [facility] Last Admin: 09/25/17 15:09 Dose: Not Given Lidocaine (Lidocaine 5%) 0 gm TOP DAILY [facility] Last Admin: 09/25/17 09:14 Dose: 1 applic Lidocaine (Lidoderm) 1 ea TD DAILY [facility] Last Admin: 09/25/17 09:25 Dose: 1 ea Metoclopramide HCl (Reglan) 5 mg IVP ACHS [facility] Last Admin: 09/26/17 08:30 Dose: 5 mg Metoprolol Tartrate (Lopressor) 50 mg PO 0800,1800 [facility] Last Admin: 09/26/17 08:18 Dose: 50 mg Multivitamins (Thera Tab) 1 tab PO DAILY [facility] Last Admin: 09/25/17 09:14 Dose: 1 tab Darunavir [Prezista] 1 tab PO HS [facility] Last Admin: 09/25/17 22:09 Dose: Not Given Linaclotide [Linzess (]) 1 cap PO DAILY [facility] Last Admin: 09/25/17 09:25 Dose: Not Given Lqogq-[id number] Ethyl Esters (Lovaza) 1 gm PO BID [facility] Last Admin: 09/25/17 18:25 Dose: 1 gm Ondansetron HCl (Zofran Inj) 4 mg IVP Q4H PRN PRN Reason: Nausea/Vomiting Pantoprazole Sodium (Protonix Ec Tab) 40 mg PO ACB [facility] Last Admin: 09/26/17 08:19 Dose: 40 mg Polyethylene Glycol (Miralax) 17 gm PO BID [facility] Last Admin: 09/25/17 18:27 Dose: Not Given Primaquine Phosphate (Primaquine) 26.3 mg PO DAILY [facility] PRN Reason: Protocol Stop: 10/04/17 17:15 Last Admin: 09/25/17 18:25 Dose: 26.3 mg - Labs Labs: 09/26/17 06:15 09/26/17 06:15 PT 12.8 SECONDS (9.4-12.5) H 09/22/17 16:05 INR 1.12 (0.93-1.08) H 09/22/17 16:05 APTT 23.4 Seconds (25.1-36.5) L 09/22/17 16:05 - Constitutional Appears: Chronically Ill - Head Exam Head Exam: NORMAL INSPECTION - ENT Exam ENT Exam: Mucous Membranes Moist - Neck Exam Neck Exam: absent: Lymphadenopathy, Meningismus - Respiratory Exam Respiratory Exam: Decreased Breath Sounds - Cardiovascular Exam Cardiovascular Exam: +S1, +S2 - GI/Abdominal Exam GI & Abdominal Exam: Soft. absent: Tenderness Assessment and Plan - Assessment and Plan (Free Text) Plan: Assessment severe sepsis due to HCAP R/O pneumocystis pneumonia history of acute pancreatitis related to hypertriglyceridemia S/P oral candidiasis history of Cony esophagitis with oral candidiasis HIV and AIDS, non-compliant with ART, last CD4 count 66 in august 2017 history of Cdiff associated diarrhea history of left upper lobe HCAP erosive gastritis HTN chronic renal failure on hemodialysis coronary artery disease history of UTI history of esophageal ulcer S/P cholecystecomty Plan continue Merrem, Doxycycline, Clindamycin and Primaquine (Day 2); follow up CMV PCR, fungitell, sputum cx; LDH is elevated patient to follow up with Dr. Rodriguez for her HIV and AIDS as an outpatient
--- NOTE | 2017-09-26 16:50 | CP.PCM.PN ---
Subjective - Date & Time of Evaluation Date of Evaluation: 09/26/17 Time of Evaluation: 08:00 - Subjective Subjective: Medicine progress note: Dr. Rubalcava Patient seen and examined at bedside. Patient did not have fevers overnight. She states that her breathing is fine and denies any complaints. States that she feels much better today and would like to go home. Objective - Vital Signs/Intake and Output Vital Signs (last 24 hours): Temp Pulse Resp BP Pulse Ox 98.8 F 78 18 113/71 100 09/26/17 14:00 09/26/17 14:00 09/26/17 14:00 09/26/17 14:00 09/26/17 14:00 Intake and Output: 09/26/17 09/26/17 06:59 18:59 Intake Total 420 Balance 420 - Medications Medications: Current Medications Acetaminophen (Tylenol 325mg Tab) 650 mg PO Q6 PRN PRN Reason: TEMP>=99.5F Last Admin: 09/25/17 04:49 Dose: 650 mg Acetylcysteine (Acetylcysteine 20%) 4 ml IH [id number] [facility] Last Admin: 09/26/17 13:34 Dose: 4 ml Alprazolam (Xanax) 0.25 mg PO Q8H PRN; Protocol PRN Reason: Anxiety Stop: 10/02/17 19:31 Last Admin: 09/24/17 21:11 Dose: 0.25 mg Aspirin (Ecotrin) 81 mg PO 0800 [facility] Last Admin: 09/26/17 08:17 Dose: 81 mg Calcium Acetate (Phoslo) 1,334 mg PO TID [facility] Last Admin: 09/26/17 14:01 Dose: 1,334 mg Docusate Sodium (Colace) 100 mg PO TID [facility] Last Admin: 09/26/17 14:00 Dose: Not Given Doxycycline Hyclate (Doryx) 100 mg PO Q12 [facility] PRN Reason: Protocol Last Admin: 09/26/17 10:49 Dose: 100 mg Ergocalciferol (Drisdol 50,000 Intl Units Cap) 1 cap PO Q7D [facility] Last Admin: 09/22/17 19:47 Dose: Not Given Folic Acid (Folic Acid) 1 mg PO DAILY [facility] Last Admin: 09/26/17 10:50 Dose: 1 mg Hydroxyzine HCl (Atarax) 25 mg PO BID PRN PRN Reason: Anxiety Last Admin: 09/23/17 17:44 Dose: 25 mg Clindamycin Phosphate 900 mg/ (Sodium Chloride) 106 mls @ 106 mls/hr IVPB Q8 [facility] PRN Reason: Protocol Stop: 10/04/17 17:14 Last Admin: 09/26/17 15:25 Dose: 106 mls/hr Meropenem 250 mg/ Sodium (Chloride) 100 mls @ 100 mls/hr IVPB Q12 [facility] PRN Reason: Protocol Last Admin: 09/26/17 10:50 Dose: 100 mls/hr Levalbuterol HCl (Xopenex) 0.63 mg IH [id number] [facility] Last Admin: 09/26/17 13:34 Dose: 0.63 mg Levothyroxine Sodium (Synthroid) 25 mcg PO 0600 [facility] Last Admin: 09/26/17 05:21 Dose: 25 mcg Lidocaine (Lidoderm) 2 ea TD DAILY [facility] Last Admin: 09/26/17 10:24 Dose: Not Given Lidocaine (Lidocaine 5%) 0 gm TOP DAILY [facility] Last Admin: 09/26/17 10:23 Dose: Not Given Lidocaine (Lidoderm) 1 ea TD DAILY [facility] Last Admin: 09/26/17 10:26 Dose: Not Given Metoclopramide HCl (Reglan) 5 mg IVP ACHS [facility] Last Admin: 09/26/17 14:01 Dose: Not Given Metoprolol Tartrate (Lopressor) 50 mg PO 0800,1800 [facility] Last Admin: 09/26/17 08:18 Dose: 50 mg Multivitamins (Thera Tab) 1 tab PO DAILY [facility] Last Admin: 09/26/17 10:50 Dose: 1 tab Darunavir [Prezista] 1 tab PO HS [facility] Last Admin: 09/25/17 22:09 Dose: Not Given Linaclotide [Linzess (]) 1 cap PO DAILY [facility] Last Admin: 09/26/17 10:27 Dose: Not Given Czgef-1-Uldh Ethyl Esters (Lovaza) 1 gm PO BID [facility] Last Admin: 09/26/17 10:47 Dose: 1 gm Ondansetron HCl (Zofran Inj) 4 mg IVP Q4H PRN PRN Reason: Nausea/Vomiting Pantoprazole Sodium (Protonix Ec Tab) 40 mg PO ACB [facility] Last Admin: 09/26/17 08:19 Dose: 40 mg Polyethylene Glycol (Miralax) 17 gm PO BID [facility] Last Admin: 09/26/17 10:27 Dose: Not Given Primaquine Phosphate (Primaquine) 26.3 mg PO DAILY [facility] PRN Reason: Protocol Stop: 10/04/17 17:15 Last Admin: 09/26/17 10:49 Dose: 26.3 mg - Labs Labs: 09/26/17 06:15 09/26/17 06:15 PT 12.8 SECONDS (9.4-12.5) H 09/22/17 16:05 INR 1.12 (0.93-1.08) H 09/22/17 16:05 APTT 23.4 Seconds (25.1-36.5) L 09/22/17 16:05 - Constitutional Appears: Well - Head Exam Head Exam: ATRAUMATIC, NORMAL INSPECTION, NORMOCEPHALIC - Eye Exam Eye Exam: EOMI, Normal appearance, PERRL Pupil Exam: NORMAL ACCOMODATION, PERRL - ENT Exam ENT Exam: Mucous Membranes Moist, Normal Exam - Neck Exam Neck Exam: Full ROM, Normal Inspection. absent: Lymphadenopathy - Respiratory Exam Respiratory Exam: Clear to Ausculation Bilateral, NORMAL BREATHING PATTERN - Cardiovascular Exam Cardiovascular Exam: REGULAR RHYTHM, +S1, +S2. absent: Murmur - GI/Abdominal Exam GI & Abdominal Exam: Soft, Normal Bowel Sounds. absent: Tenderness - Extremities Exam Extremities Exam: Full ROM, Normal Capillary Refill, Normal Inspection. absent : Joint Swelling, Pedal Edema - Back Exam Back Exam: NORMAL INSPECTION - Neurological Exam Neurological Exam: Alert, Awake, CN II-XII Intact, Normal Gait, Oriented x3 - Psychiatric Exam Psychiatric exam: Normal Affect, Normal Mood - Skin Skin Exam: Dry, Intact, Normal Color, Warm Assessment and Plan - Assessment and Plan (Free Text) Assessment: 57yo female with history of HIV, CA, CAD w/ stent placement, Medical non- compliance, ESRD on dialysis (T, Th, Sat), and chronic anemia presents w/ SOB in setting of chest pain. Chest XR unremarkable for acute disease. EKG yesterday and today showed sinus tachycardia without ST changes. Troponins trended upward .03-->.11-->.15, and patient's BNP was elevated at 108K, but she has chronic CHF. Patient also had other electrolyte imbalances on admission, and was in need of dialysis - kayexelate and calcium gluconate were ordered, dialysis was performed yesterday. Patient's blood gas was unremarkable with exception of low oxygen. Patient was also complaining of abdominal pain. Lipase was mildly elevated but not in pancreatitis range. She was given zofran in ED and on the floors. Patient's LDH is elevated and CT Chest shows ground glass opacities, possible infectious etiology. Initial blood cultures are negative and sputum culture shows normal gwendolyn Plan: Fever - Resolved, possible 2/2 Immune Reconstitution Inflammatory Syndrome VS PCP Pneumonia - Meropenem discontinued - ID Consult: Dr. Rodriguez - Placed patient on Clindamycin and Primaquine; DC'd HIV medications at present time. Chest Pain Rule Out ACS - Resolved - Continue beta iban, ASA, plavix, lipitor - Cardiolgy Consult: Dr. Tran Per Dr. Tran, most likely troponin elevation was not cardiac related - Discontinue telemetry Anemia, likely 2/2 CKD - Monitor; s/p 1 unit of blood at dialysis yesterday Hyperkalemia - Dialysis; kayexalate if needed - Monitor EKG for changes Abdominal pain - Zofran PRN - GI Consult: Dr. Snider No further GI workup necessary at this time HIV Infection - Hold current HIV medications in light of today's developments - In light of recent fevers, CD4+ count, viral load count ESRD on HD - Nephrology Consult: Dr. Crump - Dialysis as per schedule - Repeat CMP after dialysis today scheduled for 6PM - Continue home medications History CAD -Continue beta iban, ASA, statin, plavix History of Hypothyroidism -Continue home synthroid GI/DVT Prophlyaxis -Protonix/Heparin SC
--- NOTE | 2017-09-26 22:49 | PN ---
DATE: 09/26/2017 SUBJECTIVE: The patient is seen sitting in bed. She is awake, she is alert. She reports feeling much better. No fever for the last 48 hours. PHYSICAL EXAMINATION: GENERAL: Middle-aged lady sitting in bed. VITAL SIGNS: Blood pressure 113/71, heart rate 78, respiratory rate 18, temperature 98.8. HEENT: Normocephalic, atraumatic. NECK: Supple, no JVD. LUNGS: Bilateral equal air entry, bilateral rhonchi. CARDIAC: S1 and S2, regular rate and rhythm, no murmur, no rub. ABDOMEN: Soft, nondistended, nontender, bowel sounds present. EXTREMITIES: No lower extremity edema. INTAKE AND OUTPUT: Not charted. LABORATORY DATA: WBC 6.8, hemoglobin 10, hematocrit 31, platelets 133. Sodium 143, potassium 4.2, chloride 97, CO2 of 29, BUN 35, creatinine 6.9, glucose 114, calcium 8.7, phosphorus 5.3, magnesium 2.5. AST 125, ALT 73, alkaline phosphatase 148, albumin 4.1. Sputum culture, no growth so far. Blood culture, no growth. CURRENT MEDICATIONS: Mucomyst, Xanax, aspirin, PhosLo, Colace, doxycycline 100 every 12 hours, Drisdol, folic acid, Atarax, clindamycin, meropenem, Reglan, Lopressor, darunavir, Linzess, and primaquine. ASSESSMENT: 1. Severe sepsis secondary to healthcare-associated pneumonia. 2. History of acute pancreatitis. 3. History of oral candidiasis. 4. Human immunodeficiency virus. 5. Hypertension. 6. End-stage renal disease. PLAN: 1. Continue antibiotics as per ID recommendations. 2. Stable dialysis yesterday. 3. Dialysis again tomorrow. 4. Monitor LFTs. Meryl Shukla MD
[2017-09-26] MEDS: DARUNAVIR PO SCH (23:59)
[2017-09-27] MEDS: Levalbuterol 0.63 MG/3 ML Inhal Soln UD IH SCH ×4 (03:00→20:20)
[2017-09-27] MEDS: Acetylcysteine 20% Inhal Soln (4ml) IH SCH ×4 (03:00→20:20)
[2017-09-27 06:52] LABS: BASO # 0.03 K/mm3 (0.0-2.0); BASO % 0.5 % (0.0-3.0); EOS # 0.5 (0.0-0.7); EOS % 7.3 % (1.5-5.0); GRAN # 3.35 (1.4-6.5); GRAN % 53.4 % (50.0-68.0); HEMOGLOBIN 9.2 g/dL (12.0-16.0); LYMPH % 31.9 % (22.0-35.0); MEAN CELL VOLUME 96.9 fl (80.0-105.0); MEAN CORPUSCULAR HEMOGLOBIN 31.5 pg (25.0-35.0); MEAN CORPUSCULAR HGB CONC 32.5 g/dl (31.0-37.0); MEAN PLATELET VOLUME 10.9 fl (7.0-11.0); MONO # 0.4 (0.1-0.6); MONO % 6.9 % (1.0-6.0); RBC 2.92 10^6/uL (3.5-6.1); RED CELL DISTRIBUTION WIDTH 17.9 % (11.5-14.5); WHITE BLOOD COUNT 6.3 10^3/ul (4.5-11.0)
[2017-09-27 07:35] LABS: ALB/GLOB RATIO 0.9 (1.1-1.8); ALBUMIN 3.7 g/dL (3.0-4.8); BILIRUBIN,DIRECT 0.5 mg/dL (0.0-0.4); CALCIUM 8.1 mg/dL (8.4-10.5)
[2017-09-27] MEDS: Lidocaine 5% Patch TD SCH ×3 (08:42→10:00)
[2017-09-27] MEDS: Omega-3-Acid Ethyl Esters 1 GM Cap PO SCH ×3 (08:48→17:13)
[2017-09-27] MEDS: Primaquine 26.3 mg Tab PO SCH ×2 (08:51→10:00)
[2017-09-27] MEDS: Pantoprazole 40 mg EC Tab PO SCH (08:52)
[2017-09-27] MEDS: Multivitamin Therapeutic Tab PO SCH ×2 (08:53→10:00)
--- NOTE | 2017-09-27 09:44 | PN ---
DATE: 09/27/2017 SUBJECTIVE: The patient is in bed, in no acute distress, nontoxic. PHYSICAL EXAMINATION: VITAL SIGNS: Temperature is 98, blood pressure is 113/70, respiratory rate of 16. HEENT: Examination of HEENT is unremarkable. NECK: Supple. LUNGS: Have decreased breath sounds. HEART: Normal S1, S2. ABDOMEN: Soft, nontender. LABORATORY DATA: Laboratory examination reveals a white count of 6.3, hemoglobin of 9 and platelets of 126. Chemistries reveals a BUN of 49, creatinine of 9.2. LFTs are noted. Microbiology reveals the blood cultures are negative. Sputum cultures are normal gwendolyn. HIV PCR 6.4. Review of orders reveals the patient's Cryptococcus antigen is pending. Fungitell is pending. CMV is pending. Legionella is pending. The patient is on clindamycin, doxycycline, meropenem, primaquine with an LDH of 915, which is elevated at [place]. ASSESSMENT AND PLAN: A 57-year-old female who has severe sepsis with healthcare-associated pneumonia, must rule out Pneumocystis carinii pneumonia and history of acute pancreatitis related to hypertriglyceridemia, oral candidiasis, bo esophagitis and history of acquired immune deficiency syndrome and human immunodeficiency virus with very low T-cells, history of Clostridium difficile and healthcare-associated pneumonia and hypertension, chronic renal failure, on hemodialysis, coronary artery disease and currently day #3 of clindamycin and primaquine. Workup is pending still. We will follow closely with you. Meliton Rodriguez MD
[2017-09-27] MEDS: Lidocaine 5% Oint(35 gm) TOP SCH (10:00)
[2017-09-27] MEDS: POLYETHYLENE GLYCOL 3350 17 GM/Dose PACKET PO SCH ×2 (10:00→17:14)
[2017-09-27] MEDS: Linaclotide [Linzess] PO SCH (10:00)
--- NOTE | 2017-09-27 11:09 | PN ---
DATE: 09/27/2017 SUBJECTIVE: The patient is seen sitting up in the chair in room 560, bed 2. The patient is alert, awake, responsive. The patient does not appear to be in any distress. PHYSICAL EXAMINATION: VITAL SIGNS: The patient's T-max was 100. The patient slept well. The patient had one episode of anxiety documented. T-max in the last 24 hours according to the nurses' notes of 06:00 a.m. today, T-max of 100 degrees Fahrenheit. Heart rate 78, blood pressure 113/71, respirations 18, O2 sat 100%. HEENT: Head examination normocephalic, atraumatic. HEENT examination shows positive frontal alopecia. Pinkish pale conjunctivae. Anicteric sclerae. No oropharyngeal lesion. No neck rigidity. CHEST: Kyphosis. LUNGS: Examination shows decreased rhonchi and decreased creps bilaterally. CARDIOVASCULAR: S1 and S2, regular rhythm. Questionable soft systolic murmur, right second intercostal space, left second intercostal space, left sternal border. ABDOMEN: Soft. Positive bowel sounds. No guarding. No rebound tenderness. No rigidity noted. No hepatosplenomegaly. MUSCULOSKELETAL: Shows a body mass index of 23. NEUROLOGIC: Cranial nerves II through XII intact. Motor strength is 5/5 in upper and lower extremity. VASCULAR: Palpable pulses. DIAGNOSTICS: On 09/27/2017, WBC 6.3, hemoglobin and hematocrit 9.2 and 28.3, platelet 126. Sodium 141, potassium 4.3, chloride 97, CO2 of 25, anion gap 23, BUN 49, creatinine 9.2, GFR 5, glucose 90, calcium 8.1, phosphorus 5, magnesium 2.4. AST is down to 93 from a peak AST of 131; ALT is 61, down from 73; alk phos is 135; total protein 8; albumin 3.7. The HIV RNA quantitative PCR is 6.40. Normal range in undetected. Blood, sputum cultures negative. The patient transfuse 1 unit. IMPRESSION AND PLAN: 1. Severe sepsis. 2. 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 3. 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 4. Hypertension. 5. Tachycardia. 6. High-grade fever of 103 degrees Fahrenheit. 7. Tachycardia. 8. Leukocytosis with granulocytosis. 9. Anemia. 10. Status post packed red blood cell transfusion x1. 11. Transient lactic acidosis. 12. Hypoxemia. 13. Hyperphosphatemia with secondary hyperparathyroidism with elevated PTH of 224. 14. History of hypothyroidism. 15. Transaminitis, probably drug induced versus other etiology. 16. Increased anion gap metabolic acidosis. 17. Hypertriglyceridemia. 18. Hypovitaminosis D. 19. Elevated C-reactive protein. 20. Hyperprocalcitoninemia. 21. Elevated human immunodeficiency virus RNA quantitative PCR of 6.40. 22. Status post 1 unit of packed red blood cells transfusion. 23. Questionable prolonged QT interval of 496 and corrected QT interval of 553. 24. End-stage renal disease, hemodialysis dependent. 25. Severe sepsis secondary to healthcare-associated pneumonia. 26. End-stage renal disease, hemodialysis dependent three times a week via the left upper extremity arteriovenous fistula. 27. Deconditioning. 28. Poor compliance and noncompliance. 29. Status post cardiac catheterization. Plan at this time, the patient has been ordered serial labs. The patient's Cytomegalovirus, Cryptococcus, Fungitell D-glucan assay is pending. Final blood cultures, sputum cultures results pending. CURRENT CONSULTATION: 1. Nephrology. 2. Cardiology. 3. Gastroenterology. 4. Infectious Disease. The patient's case referred to TCU. The patient is on Mucomyst nebulizer 20% 4 mL every 6 hours mixed with Xopenex nebulizer 0.63 mg every 6 hours. The patient is on Atarax 25 mg b.i.d. p.r.n., clindamycin 900 mg IV every 8 hours, Colace 100 mg three times a day, Prezista 1 tablet at bedtime, doxycycline 100 mg by mouth every 12, Drisdol 50,000 units weekly, Ecotrin 81 mg daily, folic acid 1 mg daily, Lidoderm 5% patch to the affected area of the chest wall daily, Linzess 1 capsule daily, Lopressor 50 mg twice a day, Lovaza 1 g twice a day, meropenem 250 mg IV every 12, MiraLax 17 g twice a day, PhosLo 1334 mg three times a day, primaquine 26.3 mg p.o. daily, Protonix 40 mg daily, Reglan 5 mg IV before and at bedtime, Synthroid 25 mcg daily, Thera vitamin, multivitamin 1 tablet daily, Tylenol 650 every 6 p.r.n., Xanax 0.25 mg p.o. every 8 hours p.r.n., Zofran 4 mg IV every 4 p.r.n. Chest PT, incentive spirometry ordered. Out of bed, SCDs, HUNTER stockings, physical therapy, occupational therapy ordered. The patient was seen by the physical therapist yesterday. Their discharge recommendation was home upon completion of the patient's stay. The patient has been updated about her condition, diagnosis, test results and need for further inpatient treatment was discussed and explained to the patient at length and all questions concerned answered. At present, the patient's further disposition will be dependent upon the duration of the intravenous antibiotic recommended by Dr. Rodriguez including IV clindamycin and IV meropenem. Case discussed with Dr. Rodriguez at length. Dictated and electronically signed, not read. Ranjith Rubalcava MD
[2017-09-27 11:24] LABS: % CD4 (T HELPER CELL) 11 Percent (30-61); % CD8 (SUPPRESSOR T CELL) 58 Percent (12-42); ABSOLUTE CD4 CELLS 79 Cells/mcL (490-1740); ABSOLUTE CD8 CELLS 430 Cells/mcL (180-1170); ABSOLUTE LYMPHOCYTES 737 Cells/mcL (850-3900); HELPER/SUPPRESSOR RATIO 0.18 Ratio (0.86-5.00)
--- NOTE | 2017-09-27 13:20 | PN ---
DATE: 09/27/2017 SUBJECTIVE: The patient is currently in her room. She is getting ready to leave for dialysis. She remains on antibiotic therapy for possible multi lobe pneumonia. Discussed with Dr. Rodriguez who feels that in light of the fact that she has HIV, this could be an opportunistic infection. He recommends a full course of antibiotic therapy. MEDICATIONS: Medication list reviewed. The patient is on acetylcysteine inhalation therapy, Atarax, clindamycin, Colace, Prezista, doxycycline, vitamin D, Ecotrin, folic acid, Lidoderm, Linzess, Lopressor, Lovaza, meropenem, MiraLax, PhosLo, primaquine, Protonix, Reglan, Synthroid, Thera-Tabs, Tylenol, Xanax, Xopenex and Zofran p.r.n. OBJECTIVE: INTAKE/OUTPUT. Intake 120 plus, output not charted. VITAL SIGNS: Temperature 98.8, T-max was 103.2 three days ago. Blood pressure 113/71, temperature 98.8, pulse of 78. Pulse ox is 100%. HEENT: Shows her to be normocephalic, atraumatic. Conjunctivae are pale. Sclerae are nonicteric. NECK: Supple. No neck vein distention. CHEST: Clear to auscultation and percussion with scattered rhonchi. No rales or wheezing. CARDIOVASCULAR: Shows a regular rate and rhythm without audible murmurs, rubs or gallops. ABDOMEN: Soft. Bowel sounds normal. No rebound, guarding or masses. EXTREMITIES: Left upper extremity AV fistula. No lower extremity cyanosis, clubbing or edema. LABORATORY AND IMAGING DATA: CBC today, white blood cell count 6.3, hemoglobin 9.2, platelet count is 126,000. Chemistry showed normal electrolytes. BUN is 49, creatinine of 9.2. Calcium is 8.1 with an albumin of 3.7. Phosphorus is mildly elevated at 5. Magnesium was 2.4. Mild elevation of liver enzymes. HIV RNA quantitative titer is positive. Microbiology: All cultures are negative at 48 hours. Gram stain is negative of sputum. ASSESSMENT: 1. Increasing shortness of breath perhaps secondary to a multi lobe pneumonia. Her chest CAT scan showed multi lobular opacities perhaps of infectious etiology. The patient will likely complete a full course of antibiotic therapy under the guidance of Infectious Disease given her immunocompromised state, human immunodeficiency virus together with end-stage renal disease. This likely represents an opportunistic infection. 2. Atherosclerotic heart disease, status post cardiac catheterization, which shows patent stents. Ejection fraction is 50%. She does have a distal posterior descending artery stenosis of 80%. It is felt by Dr. Tran that her cardiac situation is not responsible for her shortness of breath. 3. End-stage renal disease. The patient will continue Friday, and Friday dialysis. We will maximize ultrafiltration. 4. History of human immunodeficiency virus. The patient will continue highly active antiretroviral therapy. 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 5. History of esophageal ulcer with erosive gastritis. The patient continues on appropriate medications. 6. History of chronic abdominal pain with intermittent acute pancreatitis. The patient is followed by GI on an as-needed basis. 7. History of anemia secondary to chronic kidney disease. The patient will receive maximum Aranesp dose on dialysis along with IV iron per protocol. 8. History of secondary hyperparathyroidism. Phosphorus level is borderline elevated. Calcium level was borderline low. The patient will continue PhosLo as ordered. PLAN: 1. Discussed with Dr. Rodriguez. The patient will need to complete a full course of antibiotic therapy. 2. Maximize ultrafiltration with dialysis. 3. Appreciate cardiac evaluation. 4. Continue to monitor labs on dialysis days. 5. Close renal followup during hospitalization. David Crump MD [facility]
[2017-09-27] MEDS: DARUNAVIR PO SCH (22:00)
[2017-09-28] MEDS: Levalbuterol 0.63 MG/3 ML Inhal Soln UD IH SCH ×4 (02:00→21:00)
[2017-09-28] MEDS: Acetylcysteine 20% Inhal Soln (4ml) IH SCH ×4 (02:00→21:00)
[2017-09-28] MEDS: Pantoprazole 40 mg EC Tab PO SCH (06:36)
[2017-09-28] MEDS: Levothyroxine 25 MCG TAB PO SCH (06:36)
[2017-09-28 07:09] VITALS: RESP 20
[2017-09-28 07:49] LABS: BASO # 0.03 K/mm3 (0.0-2.0); BASO % 0.6 % (0.0-3.0); EOS # 0.5 (0.0-0.7); EOS % 9.1 % (1.5-5.0); GRAN # 1.91 (1.4-6.5); GRAN % 38.6 % (50.0-68.0); HEMOGLOBIN 9.1 g/dL (12.0-16.0); LYMPH % 41.2 % (22.0-35.0); MEAN CELL VOLUME 97.6 fl (80.0-105.0); MEAN CORPUSCULAR HEMOGLOBIN 31.6 pg (25.0-35.0); MEAN CORPUSCULAR HGB CONC 32.4 g/dl (31.0-37.0); MEAN PLATELET VOLUME 11.2 fl (7.0-11.0); MONO # 0.5 (0.1-0.6); MONO % 10.5 % (1.0-6.0); RBC 2.88 10^6/uL (3.5-6.1); RED CELL DISTRIBUTION WIDTH 17.8 % (11.5-14.5)
[2017-09-28 08:09] LABS: ALB/GLOB RATIO 0.9 (1.1-1.8); ALBUMIN 3.8 g/dL (3.0-4.8); BILIRUBIN,DIRECT 0.4 mg/dL (0.0-0.4); CALCIUM 8.2 mg/dL (8.4-10.5)
--- NOTE | 2017-09-28 09:30 | PN ---
DATE: 09/28/2017 The patient's primary care physician is Dr. Ranjith Rubalcava. I am covering for him today. SUBJECTIVE: The patient is seen this morning, sitting up in the chair, eating her breakfast. She has some sporadic cough. Does not complain of shortness of breath. The patient was admitted with respiratory infection via the emergency room. The patient is allergic to MAVIS inhibitors. The patient's past history is significant that she has been treated for pulmonary infection in the past, atypical pulmonary infection associated with Pneumocystis jiroveci and currently the patient is also being treated for respiratory infection suspicious for Pneumocystis jiroveci and Pneumocystis carinii. The patient has ongoing treatment for HIV. The patient is on renal dialysis for renal failure. The patient has history of hypothyroidism, hypertension, chronic obstructive lung disease. The patient also has history of constipation. PHYSICAL EXAMINATION: GENERAL: On examination, the patient is comfortable. VITAL SIGNS: Respirations are 16 per minute. HEENT: The patient's head is normocephalic. LUNGS: Bilateral crepitations and occasional rhonchi. No localizing signs. HEART: Normal sinus rhythm. The patient's heart sounds S1 and S2 present. No murmurs. ABDOMEN: Soft. Liver and spleen not palpable. RESEARCH QUALITY ASSURANCE SPECIALIST: The patient is conscious, rationale, oriented. The patient has tendency to incline for narcotic medications. ASSESSMENT AND PLAN: At this time, the patient is improving clinically. Her blood pressure reading, the last blood pressure reading of 130/75, temperature of 98.2. The patient will continue current management. All her medications are listed. The patient is currently on respiratory treatment with Mucomyst. The patient gets clindamycin 900 mg every 8 hours. The patient is on Atarax 25 mg twice a day. The patient is on darunavir for human immunodeficiency virus, doxycycline 100 mg b.i.d. The patient is on vitamin D 50,000 units, aspirin 81 mg daily, folic acid. The patient is on lidocaine patch for pain. The patient also gets Linzess for constipation, metoprolol 50 mg p.o. once a day. The patient is on fish oil, nutritional support for hyperlipidemia. She gets meropenem 250 mg every 12 hours, MiraLax 17 g also for constipation. The patient's blood work done recently, the hemoglobin is 9.1, the patient's white count is 5000. The patient's differential, the lymphocyte count is 41, granulocyte count is 38.6. The patient's chemistry, the creatinine is 7.4, BUN is 35. All other chemical parameters seemed to be okay. We will continue current management. Follow with Infectious Disease and tomorrow to follow up. Jung Newton MD
[2017-09-28] MEDS: Omega-3-Acid Ethyl Esters 1 GM Cap PO SCH ×2 (10:41→17:45)
[2017-09-28] MEDS: Primaquine 26.3 mg Tab PO SCH (10:41)
[2017-09-28] MEDS: Multivitamin Therapeutic Tab PO SCH (10:41)
[2017-09-28] MEDS: Linaclotide [Linzess] PO SCH (10:42)
[2017-09-28] MEDS: Lidocaine 5% Oint(35 gm) TOP SCH (10:45)
[2017-09-28] MEDS: Lidocaine 5% Patch TD SCH ×2 (10:45)
[2017-09-28] MEDS: POLYETHYLENE GLYCOL 3350 17 GM/Dose PACKET PO SCH ×2 (10:47→17:45)
--- NOTE | 2017-09-28 15:07 | PN ---
DATE: 09/28/2017 SUBJECTIVE: The patient is currently seen ambulating in the room. She states she would like to go home, but understands that because of her multi-lobe pneumonia and the possibility of her having an opportunistic organism secondary to her immunocompromised state, she needs to remain in the hospital on IV antibiotic therapy. MEDICATIONS: Medication list reviewed. The patient is on acetylcysteine, Atarax, clindamycin, Colace, Prezista, doxycycline, vitamin D, Ecotrin, folic acid, lidocaine and Lidoderm, Linzess, Lopressor, Lovaza, meropenem, MiraLax, PhosLo, primaquine, Protonix, Reglan, Synthroid, Thera-Tabs, Tylenol p.r.n., Xanax p.r.n., Xopenex and Zofran p.r.n. OBJECTIVE: INTAKE/OUTPUT: Intake is 720, output is hemodialysis. VITAL SIGNS: Blood pressure 130/75, temperature 98.2, pulse of 86, respiratory rate of 20. HEENT: Normocephalic, atraumatic. Conjunctivae remains pale. Sclerae are nonicteric. NECK: Supple. No neck vein distention. CHEST: Clear to auscultation and percussion with occasional scattered rhonchi. No rales or wheezing. CARDIOVASCULAR: Regular rate and rhythm without audible murmurs, rubs or gallops. ABDOMEN: Soft. Bowel sounds normal. No rebound, guarding or masses. EXTREMITIES: Left upper extremity AV fistula. Positive thrill. Positive bruits. No lower extremity cyanosis, clubbing or edema. LABORATORY DATA AND IMAGING: From today, CBC: White blood cell count remains normal at 5, hemoglobin is stable at 9.1, platelet count is 127,000. Chemistry showed normal electrolytes. BUN 35, creatinine of 7.4. Calcium of 8.2. Magnesium 2 and phosphorus of 4.4. Microbiology: Blood cultures are negative at three days. Sputum Gram stain is negative. ASSESSMENT: 1. Status post increased shortness of breath, possibly secondary to multi-lobe pneumonia. Her chest CAT scan was positive for multi-lobular opacities, perhaps of infectious etiology. After my discussion with Dr. Rodriguez, the patient will remain on a full course of IV antibiotic therapy for possible immunocompromised state with opportunistic infection. 2. History of atherosclerotic heart disease, status post cardiac catheterization, which shows patent stents. Ejection fraction is 50%. The patient does have a distal posterior descending artery stenosis of 80%. It is felt by Dr. Tran that the patient can be managed medically and this is not responsible for her shortness of breath. 3. End-stage renal disease. The patient will continue Friday, and Friday dialysis. We will increase ultrafiltration as tolerated. 4. History of human immunodeficiency virus. The patient will continue highly active antiretroviral therapy. 5. History of esophageal ulcer with erosive gastritis. The patient will continue appropriate medications. 6. History of chronic abdominal pain with intermittent acute pancreatitis. Presently, no abdominal pain. 7. History of anemia secondary to chronic kidney disease, currently stable. The patient will continue Aranesp and IV iron per protocol on dialysis. 8. History of secondary hyperparathyroidism. Phosphorus level is excellent at 4.4. The patient will continue binder therapy with PhosLo. PLAN: 1. Discussed with the patient the need to complete a course of antibiotic therapy. 2. Continue dialysis three times a week with maximization of ultrafiltration to avoid fluid overload. 3. Continue to monitor labs on dialysis days. David Crump MD [facility]
--- NOTE | 2017-09-28 16:10 | PN ---
DATE: 09/28/2017 SUBJECTIVE: The patient is in bed in room 560, seen earlier today. PHYSICAL EXAMINATION: VITAL SIGNS: Temperature is 98, blood pressure is 120/70, respiratory rate of 20. HEENT: Unremarkable. NECK: Supple. LUNGS: Have decreased breath sounds. ABDOMEN: Soft and no rebound or guarding. LABORATORY EXAMINATION: Reveals the patient to be on microbiology, there is no growth. Sputum culture is negative. White count is 5000, hemoglobin of 9, platelets of 127. Coagulation is noted and chemistries reveals the patient's procalcitonin of 15, creatinine 7.4. CD-4 percentage is 11% and CD-4 count of 79. HIV titer is high. CMV and Fungitell studies are pending and urine for Legionella is also pending. The patient is on clindamycin, doxycycline, meropenem and primaquine. ASSESSMENT AND PLAN: A 57-year-old female with end-stage acquired immune deficiency syndrome and human immunodeficiency virus, severe sepsis, healthcare-associated pneumonia with must rule out Pneumocystis carinii pneumonia, acute pancreatitis by history, hypertriglyceridemia acute pancreatitis and bo esophagitis, end-stage acquired immune deficiency syndrome with T-cells are very low with healthcare-associated pneumonia, hypertension, chronic renal failure, coronary artery disease and day #4 of clindamycin and primaquine worked up and awaiting. We will follow closely with you. Meliton Rodriguez MD
[2017-09-28] MEDS: DARUNAVIR PO SCH (23:02)
[2017-09-29] MEDS: Acetylcysteine 20% Inhal Soln (4ml) IH SCH ×3 (02:40→13:47)
[2017-09-29] MEDS: Levalbuterol 0.63 MG/3 ML Inhal Soln UD IH SCH ×3 (02:40→13:47)
[2017-09-29] MEDS: Levothyroxine 25 MCG TAB PO SCH (06:14)
[2017-09-29] MEDS: Pantoprazole 40 mg EC Tab PO SCH ×2 (06:14→10:02)
[2017-09-29 07:34] LABS: BASO # 0.09 K/mm3 (0.0-2.0); BASO % 1.5 % (0.0-3.0); EOS # 0.5 (0.0-0.7); EOS % 7.8 % (1.5-5.0); GRAN # 2.01 (1.4-6.5); GRAN % 34.2 % (50.0-68.0); HEMOGLOBIN 9.3 g/dL (12.0-16.0); LYMPH # 2.8 (1.2-3.4); LYMPH % 47.1 % (22.0-35.0); MEAN CELL VOLUME 99.3 fl (80.0-105.0); MEAN CORPUSCULAR HEMOGLOBIN 31.3 pg (25.0-35.0); MEAN CORPUSCULAR HGB CONC 31.5 g/dl (31.0-37.0); MONO # 0.6 (0.1-0.6); MONO % 9.4 % (1.0-6.0); RBC 2.97 10^6/uL (3.5-6.1); RED CELL DISTRIBUTION WIDTH 17.6 % (11.5-14.5); WHITE BLOOD COUNT 5.9 10^3/ul (4.5-11.0)
[2017-09-29 07:38] LABS: ALB/GLOB RATIO 0.9 (1.1-1.8); ALBUMIN 3.9 g/dL (3.0-4.8); BILIRUBIN,DIRECT 0.4 mg/dL (0.0-0.4); CALCIUM 8.1 mg/dL (8.4-10.5)
[2017-09-29] MEDS ORDERED: Cefpodoxime (Vantin) 100 mg Tab PO SCH (10:00)
[2017-09-29] MEDS: Multivitamin Therapeutic Tab PO SCH (10:02)
[2017-09-29] MEDS: Linaclotide [Linzess] PO SCH (10:03)
[2017-09-29] MEDS: Lidocaine 5% Oint(35 gm) TOP SCH (10:03)
[2017-09-29] MEDS: Lidocaine 5% Patch TD SCH ×2 (10:03)
[2017-09-29] MEDS: POLYETHYLENE GLYCOL 3350 17 GM/Dose PACKET PO SCH ×2 (10:04→17:37)
[2017-09-29] MEDS: Atovaquone 750 mg/5 ml Susp UD PO SCH ×2 (10:04→17:37)
[2017-09-29] MEDS: Omega-3-Acid Ethyl Esters 1 GM Cap PO SCH ×2 (10:04→17:36)
--- NOTE | 2017-09-29 12:09 | PN ---
DATE: 09/29/2017 SUBJECTIVE: The patient is currently seen sitting up in bed on 5R. She states that she must go home today. She had been on IV antibiotics for possible opportunistic lung infection. She had been seen by Infectious Disease today. There is some consideration to transitioning over to oral antibiotic therapy so that she may be discharged. MEDICATIONS: Medication list reviewed. The patient is currently on acetylcysteine inhalation therapy, Atarax, Colace, Prezista, vitamin D, Ecotrin, folic acid, lidocaine, Linzess, Lopressor, Lovaza, Mepron, MiraLax, PhosLo, Protonix, Reglan, Synthroid, MultiVites, Tylenol, Vantin, Xanax, Xopenex and Zofran. OBJECTIVE: INTAKE/OUTPUT: Intake is 2360. Output is not charted. VITAL SIGNS: Blood pressure is 129/87, temperature 98, respiratory rate of 20 with a pulse of 80. HEENT: Shows her to be normocephalic, atraumatic. Conjunctivae remain pale. Sclerae nonicteric. NECK: Supple. No neck vein distention. CHEST: Clear to auscultation and percussion with no rales, rhonchi or wheezing. CARDIOVASCULAR: Regular rate and rhythm without audible murmurs, rubs or gallops. ABDOMEN: Soft. Bowel sounds normal. No rebound, guarding or masses. EXTREMITIES: Show a left upper extremity AV fistula. No lower extremity cyanosis, clubbing or edema. LABORATORY DATA AND IMAGING: CBC from today, white cell count 5.9, hemoglobin 9.3 with a platelet count of 125,000. Chemistries show normal electrolytes. BUN 48 with a creatinine of 9.9. Calcium of 8.1 with a phosphorus of 5.2. Magnesium level was 1.9. Liver enzymes are mildly elevated. Microbiology: Blood cultures negative at 4 days. Sputum culture is negative. ASSESSMENT: 1. Status post episode of shortness of breath with possible multilobe pneumonia. Perhaps an opportunistic infection given her immunocompromised state. The patient had been on IV antibiotic therapy and appears to be being transitioned over to oral antibiotic therapy for potential discharge. 2. History of atherosclerotic heart disease, status post cardiac catheterization, which shows patent stents. Ejection fraction of 50%. She does have an 80% blockage of a distal posterior descending artery. The patient was evaluated by Dr. Tran that she will be treated medically. 3. History of end-stage renal disease. The patient's next dialysis is scheduled for tomorrow. We will try and maximize ultrafiltration to decrease shortness of breath. The patient cautioned about excessive fluid intake. 4. History of human immunodeficiency virus. The patient will continue HAART therapy. 5. History of esophageal ulcer with erosive gastritis. The patient will continue appropriate medications. 6. History of chronic abdominal pain with intermittent bouts of acute pancreatitis. Presently, the patient is symptom free. 7. History of anemia secondary to chronic kidney disease. The patient will continue Aranesp with IV iron per protocol on dialysis. 8. History of secondary hyperparathyroidism. Phosphorus level is mildly elevated. The patient will continue binder therapy with PhosLo and continue renal diet. PLAN: 1. Perhaps discharge later today on oral antibiotic therapy. Dr. Rodriguez and the patient to discuss appropriate outpatient regimen. 2. The patient will continue Friday, , Friday dialysis. Next dialysis will be tomorrow. 3. Continue present dietary restrictions and continue fluid restriction. David Crump MD
--- NOTE | 2017-09-29 14:07 | PN ---
DATE: 09/29/2017 SUBJECTIVE: Patient is in bed, in no acute distress. She is having . She wants to be discharged. PHYSICAL EXAMINATION: VITAL SIGNS: On exam, temperature is 98, blood pressure is 113/70, respiratory rate of 20, heart rate of 78. Patient's oxygenation in room air is 96. HEENT: Unremarkable. NECK: Supple. LUNGS: Have decreased breath sounds. HEART: Normal S1, S2. ABDOMEN: Soft, nontender. LABORATORY EXAMINATION: Reveals a white count of 5.9, hemoglobin of 9, platelets of 125. Chemistries are noted with a creatinine of 9.9. LFTs are improving. Patient had cultures, which were negative. Review of orders reveals the patient is on clindamycin. She is also on doxycycline, which she has refused and Primaquine. She is also on meropenem. ASSESSMENT AND PLAN: This is a 57-year-old female, was seen earlier this morning, who wants to be discharged. Patient has end-stage acquired immune deficiency syndrome with severe sepsis and healthcare-associated pneumonia with must rule out Pneumocystis carinii pneumonia, which appears to have resolved and acute pancreatitis by history with secondary to hypertriglyceridemia and Cony esophagitis, end-stage acquired immune deficiency syndrome with low T-cells and day #5 of antibiotics. We will discontinue the clindamycin and Primaquine, meropenem and doxycycline, which she has refused and we will complete with p.o. Mepron since she is oxygenating well at this point and she wants to be discharged, and we will also comes complete with Vantin 100 mg p.o. once daily for 7 days and Mepron at 750 mg p.o. twice daily for 21 days. I have given her an appointment to the office for 10/09. She has adequate human immunodeficiency virus medications she is noncompliant most of the time and she is to follow up. Meliton Rodirguez MD
[2017-09-29 15:41] VITALS: BP 135/78; PULSE 89; TEMP 98.9; O2SAT 99
[2017-09-29] MEDS: Ergocalciferol 50,000 Intl Units Cap PO SCH (17:38)
--- NOTE | 2017-09-29 20:46 | PN ---
DATE: 09/29/2017 SUBJECTIVE: The patient is seen lying in the bed in room 560, bed 2. The patient's overnight nurse's notes were reviewed. The patient refused doxycycline. The patient refused Colace and MiraLax. The patient refused PhosLo. The patient was found to be anxious. Xanax was given. The patient was found to be alert, awake, and oriented x3. The patient kept refusing antibiotic. The patient was seen by Dr. Rodriguez yesterday. The patient refused SCDs. OBJECTIVE: VITAL SIGNS: T-max 98.9, pulse 80 to 89, blood pressure 135/78, 129/87, 125/83, respirations 20; O2 sat 95% to 99%. HEENT: Head: Normocephalic, atraumatic. Pinkish pale conjunctivae, positive frontal alopecia. Anicteric sclerae. No oropharyngeal lesion. NECK: No neck rigidity. CHEST: Kyphosis. LUNGS: Show positive rhonchi bilaterally, decreased since previous examination. Questionable decreased breath sound at the base, left more than the right. CARDIOVASCULAR: S1 and S2, regular rhythm. Positive systolic murmur at the left sternal border, right second intercostal space, left second intercostal space. ABDOMEN: Soft. Positive bowel sounds. Nontender. No guarding. No rigidity. No rebound tenderness. GENITALIA: Female. RECTAL: Deferred. EXTREMITIES: Show positive left upper extremity AV fistula, positive thrill. Lower extremity shows no pitting edema, no calf tenderness, or Homans' sign. MUSCULOSKELETAL: Shows a body mass index of 23.4. VASCULAR: Palpable pulses. PSYCHIATRIC: Positive for anxiety. DIAGNOSTICS: 09/29: WBC 5.9, hemoglobin and hematocrit 9.3 and 29.5, platelets 125. Granulocytes is 34. Sodium 146, potassium 4, chloride 98, CO2 of 28, anion gap 23. BUN 48, creatinine 9.9. GFR 5. Glucose 92. Calcium 8.1, phosphorus 5.2, magnesium 1.9. AST 81. LFTs are normal. CD-4 percent is 11. Absolute CD-4 count is 79 low at 0.18. CD-8 cell count is 58. CMV is pending. HIV, RNA, PCR is 6.4 which is elevated, normal is undetected. Sputum cultures and blood cultures are negative. The patient refused to transfuse 1 unit of PRBC. IMPRESSION: 1. Severe. sepsis with multilobar bilateral healthcare-associated pneumonia, possibly pneumocystis jiroveci pneumonia versus Pneumocystis carinii pneumonia. 2. End-stage acquired immune deficiency syndrome. 3. High-grade fever of 103.2 (resolved). 4. Tachycardia. 5. Hypertension. 6. Transient uncontrolled hypertension. 7. Hypoxemia. 8. Leukocytosis with granulocytosis. 9. Normocytic anemia with decreasing hemoglobin and hematocrit status post packed red blood cell transfusion. 10. Transient lactic acidosis. 11. End-stage renal disease, hemodialysis dependent. 12. Transaminitis (resolving and resolved). 13. Secondary hyperparathyroidism with elevated PTH of 224. 14. Hyperphosphatemia. 15. 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 16. Elevated human immunodeficiency virus PCR RNA quantification 6.4 17. Status post packed red blood cell transfusion x1. 18. Elevated LDH level of 915. 19. Hypovitaminosis D. 20. Hyperprocalcitonemia. 21. History of hypothyroidism. 22. Hypertriglyceridemia. 23. History of hyperlipidemia. 24. History of hypercholesterolemia. PLAN: At this time, the patient seen by Infectious Disease. The patient has been cleared for discharge on p.o. antibiotic, Vantin 100 mg twice a day for Mepron 750 mg twice a day. Ion addition, the patient is to her HIV medications which are abacavir 300 mg twice a day, Tylenol 650 axel 4 hours p.r.n., Mucomyst nebulizer 4 mL ever 6 hours with a nebulizer, Ecotrin 81 mg daily, Lipitor 20 mg daily, Mepron 750 mg twice a day for 21 days, PhosLo 667 mg two tablets three times a day, vitamin B12 1000 mcg IM monthly, Prezista 800 mg daily, Drisdol 50,000 weekly, folic acid 1 mg daily, Atarax 25 mg b.i.d. p.r.n., Vistaril 25 mg b.i.d. p.r.nn, Synthroid 25 mcg daily, Lidoderm 5% patch to the affected area, Reglan 5 mg before meals and at bedtime p.r.n., Lopressor 50 mg twice a day, Lovaza 1 g twice a day, Protonix 40 mg once or twice a day, Norvir 100 mg daily, Crestor is discontinued. The patient will be continued on Lipitor. In addition, the patient will be discharged on Vantin 100 mg twice a day. The patient will be discharged on aspirin 81 mg daily, Mepron 750 twice a day. The patient has been advised to follow up with Dr. Rubalcava, Dr. Rodriguez, Dr. Crump within 1 week.. During this hospitalization, the patient was extensively explained about the details of her medical condition, diagnosis, the patient was strictly advised about compliance. The patient was explained about the details of her medical condition, diagnosis at length. The patient was extensively explained about the consequences and risk of noncompliance which she acknowledged and understand. The patient was also explained about strict compliance with the med with medication and dietary restrictions. The patient was advised. Patient was advised strict compliance with medication. Diet and physician followup. The patient was advised close followup with Dr. Rubalcava, Dr. Crump, Dr. Rodriguez. Time spent in the entire discharge process more than 45 minutes. Dictated and electronically signed, not read. Ranjith Rubalcava MD
== END 2017-09-29 19:24 | disposition home or self-care (01) | DRG 286 ==
LOC: ED 14:57 → ERH 17:48 → 3RSO 20:55 → 2RNO 09-23 15:04 → 5RNO 09-24 12:31
PROVIDERS: ADMIT Internal Medicine; ATTEND Internal Medicine
PROC: 4A023N7 Measurement of Cardiac Sampling and Pressure, Left Heart, Percutaneous Approach (ICD-10-PCS; principal; 2017-09-23)
PROC: B211YZZ Fluoroscopy of Multiple Coronary Arteries using Other Contrast (ICD-10-PCS; 2017-09-23)
PROC: B215YZZ Fluoroscopy of Left Heart using Other Contrast (ICD-10-PCS; 2017-09-23)
PROC: 5A1D70Z Performance of Urinary Filtration, Intermittent, Less than 6 Hours Per Day (ICD-10-PCS; 2017-09-23)
PROC: 3E0F7GC Introduction of Other Therapeutic Substance into Respiratory Tract, Via Natural or Artificial Opening (ICD-10-PCS; 2017-09-23)
PROC: 5A1D70Z Performance of Urinary Filtration, Intermittent, Less than 6 Hours Per Day (ICD-10-PCS; 2017-09-25)
PROC: 5A1D70Z Performance of Urinary Filtration, Intermittent, Less than 6 Hours Per Day (ICD-10-PCS; 2017-09-27)
DX: I13.2 Hypertensive heart and chronic kidney disease with heart failure and with stage 5 chronic kidney disease, or end stage renal disease (principal); I50.23 Acute on chronic systolic (congestive) heart failure; N18.6 End stage renal disease; B20 Human immunodeficiency virus [HIV] disease; A41.9 Sepsis, unspecified organism; R65.20 Severe sepsis without septic shock; J18.9 Pneumonia, unspecified organism; E87.2 Acidosis; N25.81 Secondary hyperparathyroidism of renal origin; R18.8 Other ascites; J44.0 Chronic obstructive pulmonary disease with (acute) lower respiratory infection; K86.1 Other chronic pancreatitis; I25.118 Atherosclerotic heart disease of native coronary artery with other forms of angina pectoris; I42.0 Dilated cardiomyopathy; E03.9 Hypothyroidism, unspecified; E87.5 Hyperkalemia; I25.5 Ischemic cardiomyopathy; I27.20 Pulmonary hypertension, unspecified; I08.1 Rheumatic disorders of both mitral and tricuspid valves; G47.00 Insomnia, unspecified; K59.00 Constipation, unspecified; E55.9 Vitamin D deficiency, unspecified; E78.1 Pure hyperglyceridemia; E78.00 Pure hypercholesterolemia, unspecified; D63.1 Anemia in chronic kidney disease; K31.84 Gastroparesis; F41.9 Anxiety disorder, unspecified; E83.42 Hypomagnesemia; E83.39 Other disorders of phosphorus metabolism; G89.4 Chronic pain syndrome; K29.60 Other gastritis without bleeding; Y95 Nosocomial condition; Z99.2 Dependence on renal dialysis; Z76.5 Malingerer [conscious simulation]; Z91.14 Patient's other noncompliance with medication regimen; Z91.19 Patient's noncompliance with other medical treatment and regimen; Z95.5 Presence of coronary angioplasty implant and graft; Z87.891 Personal history of nicotine dependence

== ENCOUNTER 2017-10-07 00:43 | Observation (INO) | payer MEDICARE, OTHER ==
[2017-10-07] MEDS ORDERED: Albuterol-Ipratrop 3 mg / 0.5 (3 ml) UD ONE (00:53)
--- NOTE | 2017-10-07 01:00 | ED PDOC ---
Arrival/HPI - General Time Seen by Provider: 10/07/17 00:49 Historian: Patient - History of Present Illness Narrative History of Present Illness (Text): 10/07/17 00:58 57 year old female, whose past medical history includes Hypertension, chronic systolic heart failure, ESRD on HD (T, Th, Sat), HIV, PR, CAD s/p stent placement, medication non-compliance, chronic anemia presents to the emergency department complaining of shortness of breath and palpitation which began this evening. Patient denies any fever, chills, cough, chest pain, abdominal pain, nausea, vomiting, diarrhea, urinary symptoms, back pain, neck pain, headache, dizziness, or any other complaints. PMD: Dr. Rubalcava Nephro: Dr. Cardoso GI: Dr. Snider Cardio: Dr. Tran Time/Duration: Other (this evening ) Symptom Onset: Gradual Symptom Course: Unchanged Activities at Onset: Light Context: Home Past Medical History - Provider Review Nursing Documentation Reviewed: Yes - Past History Past History: No Previous - Infectious Disease Hx of Infectious Diseases: None - Tetanus Immunization Tetanus Immunization: Unknown - Cardiac Hx Cardiac Disorders: Yes (CAD (on Plavix)) Hx Congestive Heart Failure: Yes Hx Hypertension: Yes - Pulmonary Hx Chronic Obstructive Pulmonary Disease (COPD): No - Neurological HX Cerebrovascular Accident: No - HEENT Hx HEENT Disorder: No - Renal Hx Renal Failure: Yes (ESRD/ on Hemo 3x/wk) - Endocrine/Metabolic Hx Hypothyroidism: Yes - Hematological/Oncological Hx Blood Disorders: Yes Hx AIDS: Yes Hx Anemia: Yes Hx Cancer: No Hx Chemotherapy: No Hx Cirrhosis: No Hx Hepatitis A: No Hx Hepatitis B: No Hx Hepatitis C: No Hx Shingles: Yes Hx Sickle Cell Disease: No - Integumentary Hx Dermatological Disorder: Yes (generalized body itch on and off) - Musculoskeletal/Rheumatological Hx Arthritis: No - Gastrointestinal Hx Gastrointestinal Disorders: Yes Hx Crohn's Disease: No Hx Gall Bladder Disease: Yes Hx Gastroesophageal Reflux: Yes Hx Gastrointestinal Ulcer: Yes Hx Pancreatitis: Yes HX Swallowing Problems: No - Genitourinary/Gynecological Hx Genitourinary Disorders: Yes Hx Sexually Transmitted Diseases: Yes (HIV/AIDS) Hx Urinary Tract Infection: Yes - Psychiatric Hx Psychophysiologic Disorder: Yes Hx Anxiety: Yes Hx Depression: Yes Hx Emotional Abuse: No Hx Panic Disorder: Yes Hx Substance Use: Yes (hx cocaine abuse but clean x 26 yrs) - Surgical History Hx Appendectomy: No (denied) Hx Cholecystectomy: Yes Hx Coronary Stent: Yes (4) Hx Hysterectomy: No Hx Kidney Transplant: No Hx Liver Transplant: No Hx Mastectomy: No Hx Open Heart Surgery: No Hx Orthopedic Surgery: No Hx Splenectomy: No Hx Valve Replacement: No Other/Comment: cath for peritoneal dialysis inserted & removed x 2 - Anesthesia Hx Anesthesia: Yes Hx Anesthesia Reactions: No Hx Malignant Hyperthermia: No - Suicidal Assessment Feels Threatened In Home Enviroment: No Family/Social History - Physician Review Nursing Documentation Reviewed: Yes Family/Social History: No Known Family HX Smoking Status: Former Smoker Hx Alcohol Use: No Hx Substance Use: Yes (hx cocaine abuse but clean x 26 yrs) Substance used: oxycodone and marijuana Hx Substance Use Treatment: No Allergies/Home Meds Allergies/Adverse Reactions: Allergies MAVIS Inhibitors Allergy (Verified 10/07/17 01:03) SWELLING Review of Systems - Physician Review All systems were reviewed & negative as marked: Yes - Review of Systems Constitutional: absent: Fevers, Other (Chills) Respiratory: SOB Cardiovascular: Palpitations. absent: Chest Pain Gastrointestinal: absent: Abdominal Pain, Diarrhea, Nausea, Vomiting Genitourinary Female: absent: Dysuria, Frequency, Hematuria Musculoskeletal: absent: Back Pain, Neck Pain Neurological: absent: Headache, Dizziness Physical Exam Vital Signs Reviewed: Yes Vital Signs Pulse Resp BP Pulse Ox 10/07/17 05:16 90 24 138/76 95 10/07/17 03:05 101 H 18 148/78 96 10/07/17 02:40 26 H 95 10/07/17 01:15 30 H 100 10/07/17 01:05 108 H 30 H 158/92 H 99 Blood Pressure: Hypertensive Pulse: Tachycardic Respiratory Rate: Tachypneic Appearance: Positive for: Well-Appearing, Non-Toxic, Comfortable Pain Distress: None Mental Status: Positive for: Alert and Oriented X 3 - Systems Exam Head: Present: Atraumatic, Normocephalic Pupils: Present: PERRL Extroacular Muscles: Present: EOMI Conjunctiva: Present: Normal Mouth: Present: Moist Mucous Membranes Neck: Present: Normal Range of Motion Respiratory/Chest: Present: Rhonchi (Scattered Rhonchi bilaterally ). No: Respiratory Distress, Accessory Muscle Use Cardiovascular: Present: Regular Rate and Rhythm, Normal S1, S2. No: Murmurs Abdomen: No: Tenderness, Distention, Peritoneal Signs Back: Present: Normal Inspection Upper Extremity: Present: Normal Inspection. No: Cyanosis, Edema Lower Extremity: Present: Normal Inspection. No: Edema Neurological: Present: GCS=15, CN II-XII Intact, Speech Normal Skin: Present: Warm, Dry, Normal Color. No: Rashes Psychiatric: Present: Alert, Oriented x 3, Normal Insight, Normal Concentration Medical Decision Making ED Course and Treatment: 10/07/17 00:58 Impression: 57 year old female presents complaining of shortness of breath and palpitations that began this evening. Plan: -- EKG -- Labs -- Chest X-Ray -- Douneb -- Reassess and disposition Prior Visits: Notes and results from previous visits were reviewed. On 09/22/17 patient came in complaining of sudden onset of shortness of breath that began at 2:30AM. Patient was admitted. Progress Notes: EKG shows Sinus Tachycardia at 106 BPM with LVH and non-specific ST/T changes. Interpreted by me. 10/07/17 01:30 CXR Impression: As read by me, [facility]. 10/07/17 02:27 Transfer: Based upon the information available at the time of transfer, the medical benefits reasonably expected from the provision of medical treatment at [facility] outweigh the increased risk to the patient for transfer from this facility because patient in need for Dialysis in the ER area. I have described the inherent risks and benefits of the transfer to the patient , and patient agrees to transfer. I have spoken to Dr. Serrano Hospitalist service who has agreed to accept transfer of the patient and provide further medical treatment at the receiving facility. At the time of transfer, copies of all medical records sent which related to the emergency condition for which the individual presented. These records include observations of signs or symptoms, preliminary clinical impression, treatment provided, results of any completed test and an informed written consent to the transfer. 10/07/17 02:55 Patient is adamantly refusing transfer to [facility]. Patient states she prefers to wait for dialysis when available this morning. I strongly advised against this, but patient continuously adamantly refusing transfer. 10/07/17 04:00 Case discussed with Solder Technician and Dr. Rubalcava who is aware and agrees with the plan. Accepts patient into hospitalist service. - Lab Interpretations Lab Results: 10/07/17 01:07 10/07/17 02:05 Lab Results 10/07/17 02:05: Sodium 146, Potassium 3.5 L, Chloride 101, Carbon Dioxide 26, Anion Gap 23 H, BUN 57 H, Creatinine 10.9 H*, Est GFR ( Amer) 5, Est GFR (Non-Af Amer) 4, Random Glucose 144 H, Calcium 7.9 L, Total Bilirubin 0.6, AST 60 H D, ALT 27, Alkaline Phosphatase 117, Lactate Dehydrogenase 572, Total Creatine Kinase 51, Troponin I 0.04 D, NT-Pro-B Natriuret Pep 403031 H, Total Protein 8.7 H, Albumin 4.0, Globulin 4.7, Albumin/Globulin Ratio 0.9 L 10/07/17 01:07: WBC 7.9 D, RBC 2.93 L, Hgb 9.6 L, Hct 30.3 L, MCV 103.4 D, MCH 32.8, MCHC 31.7, RDW 18.9 H, Plt Count 232, MPV 10.8 10/07/17 01:07: PT 12.3, INR 1.08, APTT 27.4 I have reviewed the lab results: Yes - RAD Interpretation Radiology Orders: 10/07/17 01:00 CHEST PORTABLE [RAD] Stat - EKG Interpretation Interpreted by ED Physician: Yes Type: 12 lead EKG - Medication Orders Current Medication Orders: Abacavir Sulfate (Ziagen) 300 mg PO BID DOUGLAS PRN Reason: Protocol Aspirin (Ecotrin) 81 mg PO 0800 DOUGLAS Atorvastatin Calcium (Lipitor) 20 mg PO DIN DOUGLAS Atovaquone (Mepron) 750 mg PO BID DOUGLAS PRN Reason: Protocol Calcium Acetate (Phoslo) 1,334 mg PO WM DOUGLAS Cyanocobalamin (Vitamin B12 1000 Mcg/Ml Inj) 1,000 mcg IM Q30D DOUGLAS Ergocalciferol (Drisdol 50,000 Intl Units Cap) 1 cap PO Q7D DOUGLAS Folic Acid (Folic Acid) 1 mg PO DAILY DOUGLAS Hydroxyzine HCl (Atarax) 25 mg PO BID PRN PRN Reason: Anxiety Lamivudine (Epivir) 1 mg PO DAILY DOUGLAS PRN Reason: Protocol Levalbuterol HCl (Xopenex) 0.63 mg IH [id number] DOUGLAS Levothyroxine Sodium (Synthroid) 25 mcg PO 0600 DOUGLAS Metoprolol Tartrate (Lopressor) 50 mg PO 0800,1800 DOUGLAS Multivitamins (Thera Tab) 1 tab PO DAILY DOUGLAS Non-Formulary Medication (Acetylcysteine 20%) 4 ml IH [id number] DOUGLAS Non-Formulary Medication (Darunavir [Prezista]) 1 tab PO HS DOUGLAS [id number] Ethyl Esters (Lovaza) 1 gm PO BID DOUGLAS Pantoprazole Sodium (Protonix Ec Tab) 40 mg PO 0600 DOUGLAS Ritonavir (Norvir) 100 mg PO DAILY DOUGLAS PRN Reason: Protocol Discontinued Medications Albuterol/Ipratropium (Duoneb 3 Mg/0.5 Mg (3 Ml) Ud) 3 ml IH ONCE STA Stop: 10/07/17 01:02 Last Admin: 10/07/17 00:54 Dose: 3 ml Diphenhydramine HCl (Benadryl) 25 mg IVP ONCE ONE Stop: 10/07/17 01:59 Last Admin: 10/07/17 02:02 Dose: 25 mg IVP Administration Document 10/07/17 02:02 SS (Rec: 10/07/17 02:02 [id number]) Charges for Administration # of IVP Administrations 1 Lidocaine (Lidoderm) 1 ea TD ONCE ONE Stop: 10/07/17 03:26 Last Admin: 10/07/17 03:39 Dose: 1 ea Morphine Sulfate (Morphine) 2 mg IVP STAT STA Stop: 10/07/17 01:34 Last Admin: 10/07/17 01:59 Dose: 2 mg IVP Administration Document 10/07/17 01:59 SS (Rec: 10/07/17 01:59 [id number]) Charges for Administration # of IVP Administrations 1 - Scribe Statement The provider has reviewed the documentation as recorded by the Yanet Jackson Provider Scribe Attestation: All medical record entries made by the Scribe were at my direction and personally dictated by me. I have reviewed the chart and agree that the record accurately reflects my personal performance of the history, physical exam, medical decision making, and the department course for this patient. I have also personally directed, reviewed, and agree with the discharge instructions and disposition. Disposition/Present on Arrival - Present on Arrival Any Indicators Present on Arrival: No History of DVT/PE: No History of Uncontrolled Diabetes: No Urinary Catheter: No History Surgical Site Infection Following: None - Disposition Have Diagnosis and Disposition been Completed?: Yes Diagnosis: CHF (congestive heart failure), Shortness of breath, ESRD (end stage renal disease) Disposition: Transfer [facility] Disposition Time: 02:31 Patient Problems: Current Active Problems Problem Status Onset CHF (congestive heart failure) Acute ESRD (end stage renal disease) Acute Shortness of breath Acute Condition: STABLE
[2017-10-07] MEDS ORDERED: Albuterol-Ipratrop 3 mg / 0.5 (3 ml) UD IH STA (01:01)
[2017-10-07 01:04] VITALS: BMI 22.4
[2017-10-07 01:33] LABS: HEMOGLOBIN 9.6 g/dL (12.0-16.0); MEAN CORPUSCULAR HEMOGLOBIN 32.8 pg (25.0-35.0); MEAN CORPUSCULAR HGB CONC 31.7 g/dl (31.0-37.0); MEAN PLATELET VOLUME 10.8 fl (7.0-11.0); RBC 2.93 10^6/uL (3.5-6.1); RED CELL DISTRIBUTION WIDTH 18.9 % (11.5-14.5); WHITE BLOOD COUNT 7.9 10^3/ul (4.5-11.0)
[2017-10-07] MEDS ORDERED: Morphine 2 mg/2 mL syringe IVP STA (01:33)
[2017-10-07 01:34] LABS: INR 1.08 (0.93-1.08); PARTIAL THROMBOPLASTIN TIME 27.4 Seconds (25.1-36.5); PROTHROMBIN TIME 12.3 SECONDS (9.4-12.5)
[2017-10-07 01:35] LABS: MEAN CELL VOLUME 103.4 fl (80.0-105.0)
[2017-10-07] MEDS ORDERED: Morphine 2 mg/2 mL syringe ONE (01:44)
[2017-10-07] MEDS ORDERED: DiphenhydrAMINE 50 mg/ml Inj ONE (01:57)
[2017-10-07] MEDS ORDERED: DiphenhydrAMINE 50 mg/ml Inj IVP ONE (01:58)
[2017-10-07 02:35] LABS: ALB/GLOB RATIO 0.9 (1.1-1.8); CALCIUM 7.9 mg/dL (8.4-10.5)
[2017-10-07 02:37] LABS: TROPONIN I 0.04 ng/mL
[2017-10-07] MEDS ORDERED: Lidocaine 5% Patch TD ONE (03:25)
[2017-10-07] MEDS ORDERED: Ergocalciferol 50,000 Intl Units Cap PO SCH (05:15)
--- NOTE | 2017-10-07 05:30 | CP.PCM.HP ---
<Pamela Mccrary - Last Filed: 10/07/17 05:48> History of Present Illness - History of Present Illness History of Present Illness: HPI: Patient is a 57yo female with past medical history of CHF, ESRD on HD (T, Th, Sat), HIV, HTN, CAD s/p stent placement, medication non-compliance, chronic anemia that presented to the ED c/o shortness of breath that woke her up from her sleep early this morning. Shes admits to associated sharp, nonradiating left -sided chest pain, diaphoresis, nausea, dizziness, and headache. Patient says she has never had these symptoms before, however, she was admitted in the past for similar symptoms. Patient was originally to be trasnferred to [facility] from the ED for dialysis however, patient refused. Denies fever, chills , changes in vision/hearing, palpitations, cough, focal weakness, numbness, tingling, abdominal pain, vomiting, diarrhea, constipation, urine production, and lower extremity pain/swelling. PMHx: as stated above PSHx: x 4, cholecystectomy, bartholin cyst removal, lef AV sunt, mrcp 05/08/16 Allergies: Jamir Inhibitors Social Hx: tobacco use of 1ppd for 20 years, reportedly quit 20 years ago; denies alcohol and illicit drug use Family Hx: Multiple family members with Heart Disease and Diabetes PMD: Dr. Rubalcava Nephro: Dr. Cardoso GI: Dr. Snider Cardio: Dr. Tran Present on Admission - Present on Admission Any Indicators Present on Admission: No Review of Systems - Review of Systems All systems: reviewed and no additional remarkable complaints except (as per HPI ) Past Patient History - Infectious Disease Hx of Infectious Diseases: None - Tetanus Immunizations Tetanus Immunization: Unknown - Past Medical History & Family History Past Medical History?: Yes - Past Social History Smoking Status: Former Smoker - CARDIAC Hx Cardiac Disorders: Yes (CAD (on Plavix)) Hx Congestive Heart Failure: Yes Hx Hypertension: Yes - PULMONARY Hx Chronic Obstructive Pulmonary Disease (COPD): No - NEUROLOGICAL HX Cerebrovascular Accident: No - HEENT Hx HEENT Problems: No - RENAL Hx Renal Failure: Yes (ESRD/ on Hemo 3x/wk) - ENDOCRINE/METABOLIC Hx Hypothyroidism: Yes - HEMATOLOGICAL/ONCOLOGICAL Hx Blood Disorders: Yes Hx AIDS: Yes Hx Anemia: Yes Hx Cancer: No Hx Chemotherapy: No Hx Cirrhosis: No Hx Hepatitis A: No Hx Hepatitis B: No Hx Hepatitis C: No Hx Shingles: Yes Hx Sickle Cell Disease: No - INTEGUMENTARY Hx Dermatological Problems: Yes (generalized body itch on and off) - MUSCULOSKELETAL/RHEUMATOLOGICAL Hx Arthritis: No - GASTROINTESTINAL Hx Gastrointestinal Disorders: Yes Hx Crohn's Disease: No Hx Gall Bladder Disease: Yes Hx Gastroesophageal Reflux: Yes Hx Pancreatitis: Yes HX Swallowing Problems: No - GENITOURINARY/GYNECOLOGICAL Hx Genitourinary Disorders: Yes Hx Sexually Transmitted Disorders: Yes (HIV/AIDS) Hx Urinary Tract Infection: Yes - PSYCHIATRIC Hx Psychophysiologic Disorder: Yes Hx Anxiety: Yes Hx Depression: Yes Hx Emotional Abuse: No Hx Panic Symptoms: Yes Hx Substance Use: Yes (hx cocaine abuse but clean x 26 yrs) - SURGICAL HISTORY Hx Appendectomy: No (denied) Hx Cholecystectomy: Yes Hx Coronary Stent: Yes (4) Hx Hysterectomy: No Hx Kidney Transplant: No Hx Liver Transplant: No Hx Mastectomy: No Hx Open Heart Surgery: No Hx Orthopedic Surgery: No Hx Splenectomy: No Hx Valve Replacement: No Other/Comment: cath for peritoneal dialysis inserted & removed x 2 - ANESTHESIA Hx Anesthesia: Yes Hx Anesthesia Reactions: No Hx Malignant Hyperthermia: No Meds Allergies/Adverse Reactions: Allergies Allergy/AdvReac Type Severity Reaction Status Date / Time JAMIR Inhibitors Allergy SWELLING Verified 10/07/17 01:03 Physical Exam - Constitutional Appears: Non-toxic, No Acute Distress, Older Than Stated Age - Head Exam Head Exam: ATRAUMATIC, NORMAL INSPECTION, NORMOCEPHALIC - Eye Exam Eye Exam: EOMI, Normal appearance, PERRL - ENT Exam ENT Exam: Mucous Membranes Moist - Neck Exam Neck exam: Positive for: Normal Inspection. Negative for: Lymphadenopathy, Tenderness - Respiratory Exam Respiratory Exam: Rales, NORMAL BREATHING PATTERN. absent: Accessory Muscle Use , Rhonchi, Wheezes, Respiratory Distress - Cardiovascular Exam Cardiovascular Exam: Tachycardia, REGULAR RHYTHM, +S1, +S2, Systolic Murmur. absent: Diastolic murmur, Gallop, Rubs - GI/Abdominal Exam GI & Abdominal Exam: Normal Bowel Sounds, Soft. absent: Distended, Tenderness - Extremities Exam Extremities exam: Positive for: normal inspection. Negative for: calf tenderness, pedal edema - Neurological Exam Neurological exam: Alert, Oriented x3 - Psychiatric Exam Psychiatric exam: Normal Affect, Normal Mood - Skin Skin Exam: Dry, Intact, Normal Color, Warm Results - Vital Signs Recent Vital Signs: Last Vital Signs Temp Pulse 90 10/07/17 05:16 Resp 24 10/07/17 05:16 BP 138/76 10/07/17 05:16 Pulse Ox 95 10/07/17 05:16 - Labs Result Diagrams: 10/07/17 01:07 10/07/17 02:05 Assessment & Plan - Assessment and Plan (Free Text) Assessment: 57yo female with past medical history of CHF, ESRD on HD (T, Th, Sat), HIV, HTN , CAD s/p stent placement, medication non-compliance, chronic anemia that presents with CHF exacerbation. Plan: Chest pain r/o ACS -likely CHF exacerbation given SOB and BNP of 261021 -Serial troponin -EKG reviewed; repeat EKG with trops -CXR reviewed -Continue beta iban, ASA, statin -Avoid narcotics -Telemetry monitoring ESRD on HD T-Th-Sat -Nephrology consulted for dialysis today -Continue home medications Hx of CAD -Continue beta iban, ASA, statin Hx of hypothyroidism -Continue home synthroid Hx of HIV -Continue home meds Hx of chronic anemia -H&H 9.6/30.3 -Monitor with morning labs GI/DVT Prophlyaxis -Protonix/Heparin SC <Ranjith Rubalcava U - Last Filed: 10/07/17 23:18> Results - Vital Signs Recent Vital Signs: Last Vital Signs Temp 98.3 F 10/07/17 17:35 Pulse 103 H 10/07/17 17:35 Resp 19 10/07/17 17:35 BP 138/86 10/07/17 17:35 Pulse Ox 97 10/07/17 05:47 - Labs Result Diagrams: 10/07/17 11:00 10/07/17 11:20 Labs: Laboratory Results - last 24 hr 10/07/17 10/07/17 10/07/17 11:00 11:20 15:10 WBC 8.7 RBC 2.65 L Hgb 8.5 L Hct 26.9 L MCV 101.5 MCH 32.1 MCHC 31.6 RDW 18.9 H Plt Count 224 MPV 10.8 Gran % 55.3 Lymph % (Auto) 30.6 [place] % (Auto) 12.8 H Eos % (Auto) 0.7 L Baso % (Auto) 0.6 Gran # 4.79 Lymph # (Auto) 2.7 [place] # (Auto) 1.1 H Eos # (Auto) 0.1 Baso # (Auto) 0.05 Potassium 4.6 Phosphorus 8.1 H Magnesium 1.7 Lactate Dehydrogenase 604 778 H Total Creatine Kinase 46 51 Troponin I 0.07 D 0.07 10/07/17 20:21 WBC RBC Hgb Hct MCV MCH MCHC RDW Plt Count MPV Gran % Lymph % (Auto) [place] % (Auto) Eos % (Auto) Baso % (Auto) Gran # Lymph # (Auto) [place] # (Auto) Eos # (Auto) Baso # (Auto) Potassium Phosphorus Magnesium Lactate Dehydrogenase Total Creatine Kinase Troponin I 0.07 Attending/Attestation - Attestation I have personally seen and examined this patient.: Yes I have fully participated in the care of the patient.: Yes I have reviewed all pertinent clinical information: Yes Notes (Text): Please see/read my dictated notes.
[2017-10-07] MEDS: Pantoprazole 40 mg EC Tab PO SCH ×2 (06:26→17:42)
[2017-10-07] MEDS: Levothyroxine 25 MCG TAB PO SCH (06:26)
[2017-10-07] MEDS: Levalbuterol 0.63 MG/3 ML Inhal Soln UD IH SCH ×3 (07:23→20:25)
--- NOTE | 2017-10-07 07:48 | RAD ---
HISTORY: sob COMPARISON: 09/24/2017 FINDINGS: LUNGS: There is a new pattern of pulmonary edema PLEURA: No significant pleural effusion identified, no pneumothorax apparent. CARDIOVASCULAR: Mild cardiomegaly OSSEOUS STRUCTURES: No significant abnormalities. VISUALIZED UPPER ABDOMEN: Normal. OTHER FINDINGS: None. IMPRESSION: Pulmonary edema
[2017-10-07] MEDS ORDERED: Acetylcysteine 20% Inhal Soln (4ml) IH SCH (08:00)
[2017-10-07] MEDS: Multivitamin Therapeutic Tab PO SCH (10:00)
[2017-10-07] MEDS: Omega-3-Acid Ethyl Esters 1 GM Cap PO SCH ×2 (10:00→17:42)
[2017-10-07] MEDS: Atovaquone 750 mg/5 ml Susp UD PO SCH ×2 (10:00→17:42)
--- NOTE | 2017-10-07 10:53 | CARD ---
APPROVED REPORT EKG Measurement Heart [id number] <Conclusion> Sinus tachycardia Possible Left atrial enlargement Left ventricular hypertrophy Nonspecific ST abnormality Prolonged QTc
[2017-10-07 11:58] LABS: BASO # 0.05 K/mm3 (0.0-2.0); BASO % 0.6 % (0.0-3.0); EOS # 0.1 (0.0-0.7); EOS % 0.7 % (1.5-5.0); GRAN # 4.79 (1.4-6.5); GRAN % 55.3 % (50.0-68.0); HEMOGLOBIN 8.5 g/dL (12.0-16.0); LYMPH # 2.7 (1.2-3.4); LYMPH % 30.6 % (22.0-35.0); MEAN CELL VOLUME 101.5 fl (80.0-105.0); MEAN CORPUSCULAR HEMOGLOBIN 32.1 pg (25.0-35.0); MEAN CORPUSCULAR HGB CONC 31.6 g/dl (31.0-37.0); MEAN PLATELET VOLUME 10.8 fl (7.0-11.0); MONO # 1.1 (0.1-0.6); MONO % 12.8 % (1.0-6.0); RBC 2.65 10^6/uL (3.5-6.1); RED CELL DISTRIBUTION WIDTH 18.9 % (11.5-14.5); WHITE BLOOD COUNT 8.7 10^3/ul (4.5-11.0)
[2017-10-07 11:58] LABS: TROPONIN I 0.07 ng/mL
[2017-10-07 15:35] LABS: TROPONIN I 0.07 ng/mL
[2017-10-07] MEDS ORDERED: Lidocaine 5% Patch TD SCH ×2 (17:30→21:17)
[2017-10-07] MEDS: LamiVUDine 10 mg/ml Syringe PO SCH (17:40)
[2017-10-07] MEDS: POLYETHYLENE GLYCOL 3350 17 GM/Dose PACKET PO SCH (17:42)
[2017-10-07] MEDS: LINACLOTIDE PO SCH (17:43)
[2017-10-07] MEDS ORDERED: Omega-3-Acid Ethyl Esters 1 GM Cap PO SCH (18:00)
[2017-10-07] MEDS ORDERED: DARUNAVIR PO SCH ×2 (22:00)
[2017-10-08] MEDS: Levalbuterol 0.63 MG/3 ML Inhal Soln UD IH SCH ×2 (03:53→08:32)
[2017-10-08 04:48] VITALS: RESP 18
[2017-10-08] MEDS: Pantoprazole 40 mg EC Tab PO SCH ×2 (06:21→09:51)
[2017-10-08] MEDS: Levothyroxine 25 MCG TAB PO SCH (06:21)
[2017-10-08 06:52] VITALS: O2SAT 98
[2017-10-08 07:52] LABS: BASO # 0.03 K/mm3 (0.0-2.0); BASO % 0.6 % (0.0-3.0); EOS # 0.1 (0.0-0.7); EOS % 1.9 % (1.5-5.0); GRAN # 2.1 (1.4-6.5); GRAN % 44.9 % (50.0-68.0); HEMOGLOBIN 8.6 g/dL (12.0-16.0); LYMPH # 1.7 (1.2-3.4); LYMPH % 35.7 % (22.0-35.0); MEAN CELL VOLUME 102.3 fl (80.0-105.0); MEAN CORPUSCULAR HEMOGLOBIN 32.6 pg (25.0-35.0); MEAN CORPUSCULAR HGB CONC 31.9 g/dl (31.0-37.0); MEAN PLATELET VOLUME 10.1 fl (7.0-11.0); MONO # 0.8 (0.1-0.6); MONO % 16.9 % (1.0-6.0); RBC 2.64 10^6/uL (3.5-6.1); RED CELL DISTRIBUTION WIDTH 18.7 % (11.5-14.5); WHITE BLOOD COUNT 4.7 10^3/ul (4.5-11.0)
[2017-10-08 08:04] LABS: ALB/GLOB RATIO 0.8 (1.1-1.8); BILIRUBIN,DIRECT 0.4 mg/dL (0.0-0.4); CALCIUM 8.7 mg/dL (8.4-10.5)
--- NOTE | 2017-10-08 08:27 | PN ---
HISTORY AND PHYSICAL EXAMINATION HISTORY OF PRESENT ILLNESS: The patient is a 57-year-old with multiple hospitalizations to [facility] presented to the emergency room by [facility] complaining of shortness of breath. The patient was initially attempted by the ER physician to be sent for to [facility] for dialysis which the patient did refuse.. The patient presented with shortness of breath with pleuritic chest pain, diaphoresis, nausea and vomiting. The patient has been admitted multiple times with similar problems and history of multiple recurrent hospitalization. The patient was supposed to be transferred to [facility] for emergency dialysis, but the patient refused, and the patient was now being admitted. The patient was examined in room 270. Please refer detailed history and physical examination for history and physical dictated by the internist medical doctor md. The patient's lab data and diagnostic data, all reviewed. IMPRESSION: 1. Shortness of breath. 2. Volume and fluid overload with recurrent congestive heart failure. 3. History of poor compliance and noncompliance. 4. Normocytic anemia. 5. Increased anion gap metabolic acidosis. 6. Acute recurrent congestive heart failure with elevated BNP. 7. Indeterminate troponin. 8. End-stage renal disease, hemodialysis dependent, hemodialysis requiring 3 times a week via the left upper extremity AV fistula. 9. Pulmonary edema. 10. Sinus tachycardia. 11. Left ventricular hypertrophy. 12. History of human immunodeficiency virus, acquired immune deficiency syndrome, nephropathy. 13. History of coronary artery disease, coronary angioplasty, and non-ST elevation myocardial infarction. 14. History of severe sepsis with multilobar bilateral healthcare-associated pneumonia and possibly Pneumocystis jiroveci pneumonia versus Pneumocystis carinii pneumonia. 15. Advanced acquired immune deficiency syndrome and human immunodeficiency virus. 16. Hypertension. 17. Secondary hyperparathyroidism with elevated PTH. 18. 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 19. Elevated human immunodeficiency virus PCR RNA quantification 6.4. 20. History of transfusion dependent anemia. 21. Hypovitaminosis D. 22. Hyperprocalcitoninemia. 23. History of hypothyroidism, hypertriglyceridemia, hyperlipidemia. 24. Transaminitis. 24. Cholecystectomy. 25. Cardiomegaly. 26. Multivessel coronary artery disease. 27. Left ventricular ejection fraction of 50% with minimally dilated and minimal global hypokinesis. 28. Two 50% lesions of mid and distal right coronary artery with diffuse right coronary artery atherosclerosis. 29. An 80% stenosis of the very distal small posterior descending artery. 30. Patent stent of the left circumflex artery and left anterior descending artery, and diagonal vessel. 31. Hypertensive cardiovascular disease. 32. Anemia of chronic disease and chronic kidney disease. 33. Non-hemolyzed hyperkalemia. 34. Hyperphosphatemia. 35. Hepatomegaly. 36. Status post cardiac catheterization in September 2017. 37. Chronic narcotic-dependent pain syndrome. 38. History of narcotic seeking behavior. 39. Ribcage and chest wall pain. 40. Anxiety disorder. 41. History of high-grade fever. 42. Gastritis and gastroparesis. 43. History of doxycycline induced esophagitis. 44. Pulmonary hypertension with right ventricular systolic pressure of 60 mmHg. 45. History of vitamin B12 deficiency. 46 History of dyslipidemia. 47. Constipation. PLAN: At this time, the patient is to be admitted to telemetry. The patient's consultation Nephrology, Cardiology. CURRENT MEDICATIONS: The patient is resumed on abacavir Ziagen 300 mg twice a day, Mucomyst nebulizer 20% 4 mL every 6 hours, Ecotrin 81 mg daily, Lipitor 20 mg daily, Mepron 750 twice a day, PhosLo 1334 mg with meals, vitamin B12 of 1000 mcg IM monthly, Prezista 800 mg daily, Drisdol 50,000 units weekly, folic acid 1 mg daily, Atarax or hydroxyzine 25 mg twice a day p.r.n., Epivir 25 mg daily, Xopenex nebulizer 0.63 mg every 6 hours [id number]. The patient is on Synthroid 25 mcg daily, Lopressor 50 twice a day, multivitamin 1 tablet daily, Lovaza 1 g twice a day, Protonix 40 mg daily, Norvir 100 mg daily. In addition, the patient is also to be resumed on Lipitor 20 daily, Lopressor. The patient is to be resumed on Linzess, Lidoderm 5% patch, MiraLax 17 g twice a day. The patient is seen at present in room 270. The patient is awaiting for Cardiology and Nephrology evaluation, and further recommendations. The patient is awaiting for urgent dialysis. The patient was supposed to be transferred to [facility], which the patient refused. At present, the patient's further management will be dependent upon the patient's clinical condition, hemodynamic status and as per patient's response to therapeutic intervention, as per the patient's diagnostic test results and as per recommendation by all the physicians involved in the care of the patient. Dictated and electronically signed, not read. Ranjith Rubalcava MD MTDD
--- NOTE | 2017-10-08 08:33 | CON ---
DATE: 10/07/2017 The patient admitted for Dr. Ranjith Rubalcava. REFERRING MD: Dr. Rubalcava. REASON FOR CONSULTATION: To provide dialysis service for a patient with end-stage renal disease known to us from both inpatient hospitalizations and outpatient dialysis who presents with increasing shortness of breath and CHF associated with chest pain. HISTORY OF PRESENT ILLNESS: The patient is a 57-year-old black female with a history of end-stage renal disease on chronic maintenance hemodialysis, history of HIV with HIV nephropathy, history of chronic abdominal pain with intermittent bouts of pancreatitis, history of anemia secondary to chronic kidney disease, secondary hyperparathyroidism, hypertension, history of ASHD status post PTCA stents. The patient had a recent hospitalization for possible pneumonia. She had a course of IV antibiotics while in hospital and was discharged home on oral antibiotic therapy. Of note, patient with her routine dialysis on Friday on 10/04/2017, had less than 1 liter of fluid removed with dialysis. The patient states it has been difficult to assess her drive because of hospitalizations, decreased p.o. intake, and erratic weight changes. We are asked to evaluate the patient and provide dialysis. PAST MEDICAL HISTORY: Significant for end-stage renal disease on Friday, , Friday dialysis; history of HIV nephropathy, on HAART therapy; history of intermittent bouts of acute pancreatitis; anemia secondary to chronic kidney disease; secondary hyperparathyroidism; history of ASHD status post PTCA stents; history of hypertension. The patient has a left upper extremity AV fistula. MEDICATIONS AT HOME: Include that of hydroxyzine, Atarax, Norvir, MiraLax, Protonix, Lovaza, Thera-Tabs, Lopressor, Reglan, Linzess, Lidoderm, Synthroid, Xopenex, lamivudine, folic acid, vitamin D, Prezista, vitamin B12, Vantin, PhosLo, Mepron, Lipitor, Mucomyst inhalation therapy, Ecotrin, p.r.n. Tylenol, and Ziagen. ALLERGIES: THE PATIENT IS ALLERGIC TO MAVIS INHIBITORS. CURRENT MEDICATIONS: In hospital include that of acetylcysteine, Atarax, Prezista, vitamin D, Ecotrin, Epivir, folic acid, Lipitor, Lopressor, Lovaza, Mepron, Norvir, PhosLo, Protonix, Synthroid, Thera-Tabs, vitamin B12, Xopenex and Ziagen. SOCIAL HISTORY: The patient has a past history of cigarette smoking. No history of alcohol use. Patient is retired. FAMILY HISTORY: Positive for heart disease and diabetes. REVIEW OF SYSTEMS: 10+ systems reviewed with the patient. All negative except for what is noted above. GENERAL: Appetite has been stable. Weight has been variable secondary to recent hospitalizations. HEENT: No hearing or visual problems. PULMONARY: Positive shortness of breath as noted above. CARDIAC: History of ASHD with stent placement. Positive chest pain as noted above. GI: History of intermittent chronic abdominal pain, history of pancreatitis. Presently, no nausea, vomiting, constipation or diarrhea. : History of end-stage renal disease with no significant urine output. 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 ENDOCRINE: No history of diabetes, history of secondary hyperparathyroidism. MUSCULOSKELETAL: No issues. NEURO: No past history of CVA, TIA, seizures or syncope. HEME/ONC: History of anemia secondary to chronic kidney disease. PSYCHIATRIC: History is negative. PHYSICAL EXAMINATION: GENERAL: The patient is currently seen just having completed dialysis. She appears stable. No shortness of breath. VITAL SIGNS: Blood pressure is 152/83, heart rate is 98. Temperature is 97.9 with a respiratory rate of 18. HEENT: Shows her to be normocephalic, atraumatic. Conjunctivae are pale. Sclerae are nonicteric. Pupils equal, reactive to light and accommodation. Extraocular muscles are intact. Posterior pharynx is normal. NECK: Supple. No neck vein distention. No thyromegaly. No lymphadenopathy. No bruits. CHEST: Clear to auscultation and percussion with no rales, rhonchi or wheezing. CARDIOVASCULAR: Shows a regular rate and rhythm without audible murmurs, rubs or gallops. ABDOMEN: Soft. Bowel sounds normal. No rebound, guarding or masses. EXTREMITIES: Show a cannulated left upper extremity AV fistula. No lower extremity edema. No cyanosis or clubbing. Diminished lower extremity pulses bilaterally. NEURO: Shows her be alert and oriented x3 with no gross focal motor or sensory deficits noted. IMAGING STUDIES: Admitting chest x-ray showed mild CHF. Admitting EKG showed a normal sinus rhythm, left atrial enlargement, LVH with no acute ST or T-wave changes. LABORATORY DATA: CBC; white blood cell count 8.7 today, hemoglobin down from 9.6 to 8.5. Platelet count is 224,000. Coags are normal. Chemistries showed normal electrolytes. BUN 57 with a creatinine of 10.9. Glucose 144. Calcium 7.9 with an albumin of 4. Phosphorus level is elevated 8.1. Magnesium level was 1.7. Liver enzymes, mild elevation of AST at 60. Troponin levels of 0.04 and 0.07. CPK values are normal. ASSESSMENT: 1. Acute shortness of breath with mild congestive heart failure in the setting of hypervolemia. Unclear to me why less than 1 liter of fluid was removed with dialysis on Friday, 3 days ago. Especially going into the summer months and the increased heat, the patient's drink more fluid. I discussed with the staff about the need to remove at least 2 to 2-1/2 kg of fluid with dialysis with each of her dialysis treatments. We will try and determine an estimated dry weight for the patient but this is being fluctuating secondary to recent hospitalizations and likely loss of dry weight. The patient is just completed dialysis. She appears to be clinically euvolemic. Her shortness of breath and chest pain have resolved. 2. History of end-stage renal disease. The patient will continue Friday, , Friday dialysis. Again, we will make certain that she receives adequate ultrafiltration. 3. History of human immunodeficiency virus. The patient will continue highly active antiretroviral therapy. Etiology of her chronic kidney disease was acquired immune deficiency syndrome. 4. History of esophageal ulcer, erosive gastritis. The patient has been using protein pump inhibition therapy to minimize any symptoms. 5. History of chronic abdominal pain in part secondary to pancreatitis. None at present. 6. History of anemia secondary to chronic kidney disease. The patient will receive maximum Aranesp dose and should continue receiving IV iron per protocol with dialysis. If necessary, the patient may be transfused. 7. History of secondary hyperparathyroidism. Of note, the patient's phosphorus level is 8.1, should continue renal diet and binder therapy along with vitamin D. PLAN: 1. Discussed with the patient to make certain that she receives at least 2 liters of ultrafiltration with each dialysis. 2. Continue renal diet and binder therapy. 3. Aranesp and IV iron per protocol. 4. In all likelihood, this will be a short-stay hospitalization as it appears that clinically her CHF has resolved. 5. There does not appear to be any ongoing acute coronary ischemia. Troponin levels are low and they are flat. 6. Close renal followup during hospitalization. Thank you for letting me partake and share in the care of our mutual patient. David Crump MD
[2017-10-08] MEDS: Multivitamin Therapeutic Tab PO SCH (09:47)
[2017-10-08] MEDS: Omega-3-Acid Ethyl Esters 1 GM Cap PO SCH (09:47)
[2017-10-08] MEDS: POLYETHYLENE GLYCOL 3350 17 GM/Dose PACKET PO SCH ×2 (09:49→09:54)
[2017-10-08] MEDS: LINACLOTIDE PO SCH (09:50)
[2017-10-08] MEDS: LamiVUDine 10 mg/ml Syringe PO SCH (09:59)
[2017-10-08] MEDS: Atovaquone 750 mg/5 ml Susp UD PO SCH (09:59)
[2017-10-08 13:26] VITALS: BP 118/70; PULSE 90; TEMP 97.8
--- NOTE | 2017-10-09 16:16 | DS ---
SUBJECTIVE: The patient is seen ambulating on the floor in the room 260, bed 1. The patient is anxiously wanting to go home. Overnight nurse's notes were reviewed. The patient slept overnight without any adverse event except for occasional complaints of pain and abdominal pain, for which the patient refused Reglan. DISCHARGE PHYSICAL EXAMINATION: VITAL SIGNS: T-max 98.3, telemetry shows normal sinus rhythm, heart rate 90s, 80s, 84, blood pressure 118/70, 122/73, 145/85, 130/97, respiratory rate 18-20, O2 sat 98%. HEENT: Head examination show normocephalic, atraumatic. HEENT examination shows pinkish pale conjunctivae. Anicteric sclerae. No oropharyngeal lesion. No neck rigidity. CHEST: Kyphosis. LUNGS: Examination shows decreasing rhonchi, creps, crackles, rales. Questionable decreased breath sound at the bases, left more than the right. CARDIOVASCULAR: S1, S2, regular rhythm. Positive systolic murmur, left sternal border, right second intercostal space, left second intercostal space. ABDOMEN: Soft. Positive bowel sound. No guarding or rigidity. No rebound tenderness noted. No costovertebral angle tenderness. No hepatosplenomegaly noted. GENITALIA: Female. RECTAL: Examination is deferred. EXTREMITIES: Shows positive left upper extremity AV fistula. Lower extremity shows no pitting edema, no calf numbness, no Homans' sign. NEUROLOGIC: The patient is alert, awake, oriented x3. Cranial nerves II-XII intact. Gait examination is independent. Vascular examination, palpable pulses. DIAGNOSTIC DATA: On October 08; WBC 4.7, hemoglobin/hematocrit 8.6/27.0, platelets 175. Sodium 142, potassium 4.6, chloride 97, CO2 33, anion gap 18, BUN 35, creatinine 7.4, GFR 7, glucose 98, calcium 8.7, AST 45. FINAL IMPRESSION, PLAN AND DISCHARGE DIAGNOSES: 1. Fluid and volume overload with recurrent congestive heart failure with symptoms of shortness of breath with elevated BNP. 2. Poor compliance/noncompliance. 3. End-stage renal disease, hemodialysis dependent three times a week. 4. Hypertension. 5. Normocytic anemia. 6. Hypokalemia. 7. Recurrent congestive heart failure and pulmonary edema. 8. Advanced HIV/AIDS with CD-4 lymphopenia. 9. Secondary hyperparathyroidism. PLAN: At this time, the patient was cleared by Nephrology for discharge. The patient will be discharged home on following discharge medications which the patient already has the prescription from last week discharge. DISCHARGE MEDICATIONS: Ziagen (abacavir) 300 mg 1 tablet twice a day, Tylenol 650 p.r.n., Mucomyst nebulizer every 6 hours, Ecotrin 81 mg daily, Lipitor 20 mg daily, Mepron 750 mg twice a day, PhosLo 667 mg 2 tablets three times a day. The patient is to resume Vantin 100 mg daily 14 tablets which was prescribed last week, vitamin B12 1000 mcg IM monthly, Prezista 800 mg daily, Drisdol 50,000 units weekly, folic acid 1 mg daily, Vistaril 25 mg twice a day, lamivudine 150 mg daily, Xopenex 0.63 mg nebulizer every 6 hours, Synthroid 25 mcg daily, Lidoderm 5% patch daily, Linzess mcg daily, Reglan 5 mg a.c. at bedtime, Lopressor 50 mg twice a day, multivitamin 1 tablet daily, Lovaza 2 g twice a day, Protonix 40 mg once or twice a day, MiraLax 17 g twice a day, Norvir 100 mg daily. The patient is discharged home. Discharge followup is with Dr. Rubalcava within 1 week and followup with hemodialysis three times a week - [id number]. During this hospitalization, the patient was extensively explained about the details of her medical condition, diagnosis, treatment plan, management plan, strict compliance with diet, medication all discussed and explained to the patient at length and all questions concerned answered. Time spent, more than 45 minutes. Dictated and electronically signed, not read. Ranjith Rubalcava MD
== END 2017-10-08 13:42 | disposition home or self-care (01) ==
LOC: ED 00:43 → ERH 04:29 → INTOOBSV 04:29 → ERH 04:55 → 2RSO 05:50
PROVIDERS: ADMIT Internal Medicine; ATTEND Internal Medicine
DX: I13.2 Hypertensive heart and chronic kidney disease with heart failure and with stage 5 chronic kidney disease, or end stage renal disease (principal); I50.23 Acute on chronic systolic (congestive) heart failure; N18.6 End stage renal disease; K86.1 Other chronic pancreatitis; I25.10 Atherosclerotic heart disease of native coronary artery without angina pectoris; N25.81 Secondary hyperparathyroidism of renal origin; B20 Human immunodeficiency virus [HIV] disease; D63.1 Anemia in chronic kidney disease; E03.9 Hypothyroidism, unspecified; E55.9 Vitamin D deficiency, unspecified; E78.5 Hyperlipidemia, unspecified; E78.1 Pure hyperglyceridemia; K31.84 Gastroparesis; K29.70 Gastritis, unspecified, without bleeding; I27.20 Pulmonary hypertension, unspecified; E87.6 Hypokalemia; K59.00 Constipation, unspecified; E53.8 Deficiency of other specified B group vitamins; K21.9 Gastro-esophageal reflux disease without esophagitis; D72.810 Lymphocytopenia; E87.2 Acidosis; E83.39 Other disorders of phosphorus metabolism; I25.2 Old myocardial infarction; Z95.5 Presence of coronary angioplasty implant and graft; Z91.14 Patient's other noncompliance with medication regimen; Z87.891 Personal history of nicotine dependence; Z99.2 Dependence on renal dialysis; Z83.3 Family history of diabetes mellitus; Z87.11 Personal history of peptic ulcer disease; Z91.19 Patient's noncompliance with other medical treatment and regimen
CPT/HCPCS: 36415; 71045; 80053; 82248; 82550; 83615; 83735; 83880; 84100; 84132; 84311; 84484; 85025; 85027; 85610; 85730; 93005; 96374; 96375; 96376; 99285; G0378; J1200; J2270; J2765

== ENCOUNTER 2017-12-02 03:31 | Emergency (ER) | payer MEDICARE ==
[2017-12-02 03:31] VITALS: BMI 22.4
[2017-12-02 03:53] VITALS: TEMP 99.3
[2017-12-02] MEDS ORDERED: Morphine 2 mg/ml ISec IVP STA (04:18)
--- NOTE | 2017-12-02 04:23 | ED PDOC ---
Arrival/HPI - General Chief Complaint: ENT Problem Time Seen by Provider: 12/02/17 03:34 Historian: Patient - History of Present Illness Narrative History of Present Illness (Text): 12/02/17 04:16 57 year old female, whose past medical history includes Hypertension, chronic systolic heart failure, ESRD on HD (T, Th, Sat), HIV, NC, CAD s/p stent placement, medication non-compliance, and chronic anemia presents to the emergency department complaining of pain when swallowing. Pain extends to the lower part of neck/throat area down to chest and abdomen. Patient states symptoms began in the past week, but worsen in the past day. Patient states shes been eating small amounts of food because of the discomfort and difficulty when swallowing. Patient states she had her dialysis port changed 1 week ago and notes symptoms began shortly after this. Patient denies any known fevers or chills, although patient states she felt warm at times. Patient denies any shortness of breath, nausea, vomiting, diarrhea, back pain, neck pain, urinary symptoms, headache, dizziness, or any other complaint. PSHx: x 4, cholecystectomy, bartholin cyst removal, lef AV sunt, mrcp 05/08/16 PMD: Dr. Rubalcava Nephro: Dr. Cardoso GI: Dr. Snider Cardio: Dr. Tran Time/Duration: 1 week Symptom Onset: Gradual Symptom Course: Worsening Activities at Onset: Light Context: Home Past Medical History - Provider Review Nursing Documentation Reviewed: Yes - Past History Past History: No Previous - Infectious Disease Hx of Infectious Diseases: None - Tetanus Immunization Tetanus Immunization: Unknown - Cardiac Hx Cardiac Disorders: Yes (CAD (on Plavix)) Hx Congestive Heart Failure: Yes Hx Hypertension: Yes - Pulmonary Hx Chronic Obstructive Pulmonary Disease (COPD): No - Neurological HX Cerebrovascular Accident: No - HEENT Hx HEENT Disorder: No - Renal Hx Renal Failure: Yes (ESRD/ on Hemo 3x/wk) - Endocrine/Metabolic Hx Hypothyroidism: Yes - Hematological/Oncological Hx Blood Disorders: Yes Hx AIDS: Yes Hx Anemia: Yes Hx Cancer: No Hx Chemotherapy: No Hx Cirrhosis: No Hx Hepatitis A: No Hx Hepatitis B: No Hx Hepatitis C: No Hx Shingles: Yes Hx Sickle Cell Disease: No - Integumentary Hx Dermatological Disorder: Yes (generalized body itch on and off) - Musculoskeletal/Rheumatological Hx Falls: Yes - Gastrointestinal Hx Gastrointestinal Disorders: Yes Hx Crohn's Disease: No Hx Gall Bladder Disease: Yes Hx Gastroesophageal Reflux: Yes Hx Pancreatitis: Yes HX Swallowing Problems: No - Genitourinary/Gynecological Hx Genitourinary Disorders: Yes Hx Sexually Transmitted Diseases: Yes (HIV/AIDS) Hx Urinary Tract Infection: Yes - Psychiatric Hx Psychophysiologic Disorder: Yes Hx Anxiety: Yes Hx Depression: Yes Hx Emotional Abuse: No Hx Panic Disorder: Yes Hx Substance Use: Yes (Quit 25 years ago) - Surgical History Hx Appendectomy: No (denied) Hx Cholecystectomy: Yes Hx Coronary Stent: Yes (4) Hx Hysterectomy: No Hx Kidney Transplant: No Hx Liver Transplant: No Hx Mastectomy: No Hx Open Heart Surgery: No Hx Orthopedic Surgery: No Hx Splenectomy: No Hx Valve Replacement: No Other/Comment: cath for peritoneal dialysis inserted & removed x 2 - Anesthesia Hx Anesthesia: Yes Hx Anesthesia Reactions: No Hx Malignant Hyperthermia: No - Suicidal Assessment Feels Threatened In Home Enviroment: No Family/Social History - Physician Review Nursing Documentation Reviewed: Yes Family/Social History: No Known Family HX Smoking Status: Former Smoker Hx Alcohol Use: Yes Hx Substance Use: Yes (Quit 25 years ago) Substance used: oxycodone and marijuana Hx Substance Use Treatment: No Allergies/Home Meds Allergies/Adverse Reactions: Allergies MAVIS Inhibitors Allergy (Verified 12/02/17 03:48) SWELLING Review of Systems - Physician Review All systems were reviewed & negative as marked: Yes - Review of Systems Constitutional: absent: Fevers, Other (Chills) ENT: Other (Throat pain extends lower part of neck/throat area down to the chest and abdomen) Respiratory: absent: SOB Cardiovascular: Other (pain radiates to chest). absent: Chest Pain Gastrointestinal: Other (pain radiates to abdomen ). absent: Diarrhea, Nausea, Vomiting Genitourinary Female: absent: Dysuria, Frequency, Hematuria Musculoskeletal: absent: Back Pain, Neck Pain Neurological: absent: Headache, Dizziness Physical Exam Vital Signs Reviewed: Yes Vital Signs Temp Pulse Resp BP Pulse Ox 12/02/17 03:48 99.3 F 105 H 17 96/62 L 97 Temperature: Afebrile Blood Pressure: Hypotensive Pulse: Tachycardic Respiratory Rate: Normal Appearance: Positive for: Well-Appearing, Non-Toxic, Comfortable Pain Distress: None Mental Status: Positive for: Alert and Oriented X 3 - Systems Exam Head: Present: Atraumatic, Normocephalic Pupils: Present: PERRL Extroacular Muscles: Present: EOMI Conjunctiva: Present: Normal Mouth: Present: Moist Mucous Membranes Pharnyx: No: ERYTHEMA, Other (No swelling or erythema to posterior pharnyx ) Neck: Present: Normal Range of Motion. No: MIDLINE TENDERNESS, Paraspinal Tenderness Respiratory/Chest: Present: Clear to Auscultation, Good Air Exchange. No: Respiratory Distress, Accessory Muscle Use Cardiovascular: Present: Regular Rate and Rhythm, Normal S1, S2. No: Murmurs Abdomen: Present: Tenderness (Mild upper abdominal tenderness epigastric region) , Normal Bowel Sounds. No: Distention, Peritoneal Signs, Rebound, Guarding Back: Present: Normal Inspection. No: CVA Tenderness Upper Extremity: Present: Normal Inspection. No: Cyanosis, Edema Lower Extremity: Present: Normal Inspection. No: Edema Neurological: Present: GCS=15, CN II-XII Intact, Speech Normal Skin: Present: Warm, Dry, Normal Color. No: Rashes Psychiatric: Present: Alert, Oriented x 3, Normal Insight, Normal Concentration Medical Decision Making ED Course and Treatment: 12/02/17 04:18 Impression: 57 year old female presents complaining of pain when swallowing. Pain extends to the lower part of neck/throat area down to the chest and abdomen for that past week which worsened in the past day. Plan: -- VBG -- CT Chest, abdomen w/o Contrast -- CT Neck Soft tissue w/o contrast -- EKG -- Labs -- Chest X-ray -- Morphine -- Reassess and disposition Prior Visits: Notes and results from previous visits were reviewed. Progress Notes: EXAM: CT Neck Without Intravenous Contrast Dictated and Authenticated by: Patrica Dangelo MD 12/02/2017 4:52 AM IMPRESSION: No acute findings. EXAM: CT Chest Without Intravenous Contrast Dictated and Authenticated by: Owen Gunter MD 12/02/2017 5:00 AM IMPRESSION: Atelectasis or fibrosis left base. Questionable area of atelectasis or early infiltrate in the right base medially. EXAM: CT Abdomen Without Intravenous Contrast Dictated and Authenticated by: Owen Gunter MD 12/02/2017 5:03 AM IMPRESSION: 1. Cholecystectomy. 2. Atrophic kidneys bilaterally. 12/02/17 05:21 EKG shows NSR at 82 BPM with prolonged QT. Nonspecific ST/T changes. Interpreted by me. 12/02/17 05:22 CXR Impression: As read by me, no acute process. 12/02/17 05:50 Pt. feels better following treatment in ED. 12/02/17 06:[address] Rubalcava.Patient to follow up with him later today as scheduled.Recommends a dose of Kayexlate.Pt. will be started on Protonix. 12/02/17 06:35 - Lab Interpretations Lab Results: 12/02/17 05:05 12/02/17 05:05 Lab Results 12/02/17 05:05: pO2 29 L, VBG pH 7.39, VBG pCO2 55.0, VBG HCO3 33.3 H, VBG Total CO2 35.0 H, VBG O2 Sat (Calc) 55.7, VBG Base Excess 6.7 H, VBG Potassium 5.5 H, Sodium 135.0, Chloride 97.0 L, Glucose 88, Lactate 1.6, FiO2 21.0, Venous Blood Potassium 5.5 H 12/02/17 05:05: WBC 5.0, RBC 3.17 L, Hgb 10.5 L, Hct 32.1 L, MCV 101.3, MCH 33.1 , MCHC 32.7, RDW 14.6 H, Plt Count 128, MPV 10.3 12/02/17 05:05: Sodium 139, Chloride 93 L, Potassium 5.5 H, Carbon Dioxide 30, Anion Gap 21 H, BUN 32 H, Creatinine 9.6 H* D, Est GFR ( Amer) 5, Est GFR (Non-Af Amer) 4, Random Glucose 94, Calcium 8.7, Total Bilirubin 0.8, AST 42 H, ALT 9, Alkaline Phosphatase 96, Lactate Dehydrogenase 577, Total Creatine Kinase 71, Troponin I 0.03 D, Total Protein 9.8 H, Albumin 4.4, Globulin 5.4, Albumin/Globulin Ratio 0.8 L 12/02/17 05:05: PT 12.6, INR 1.09, APTT 30.9 I have reviewed the lab results: Yes - RAD Interpretation Radiology Orders: 12/02/17 04:13 CHEST PORTABLE [RAD] Stat 12/02/17 04:14 CHEST, ABDOMEN W/O CONTRAST [CT] Stat 12/02/17 04:15 NECK SOFT TISSUE W/O CONTRAST [CT] Stat - EKG Interpretation Interpreted by ED Physician: Yes Type: 12 lead EKG - Medication Orders Current Medication Orders: Discontinued Medications Diphenhydramine HCl (Benadryl) 25 mg IVP STAT STA Stop: 12/02/17 05:16 Last Admin: 12/02/17 05:16 Dose: 25 mg IVP Administration Document 12/02/17 05:16 CNR (Rec: 12/02/17 05:16 CNR [id number]) Charges for Administration # of IVP Administrations 1 Famotidine (Pepcid) 20 mg IVP STAT STA Stop: 12/02/17 05:59 Last Admin: 12/02/17 06:12 Dose: 20 mg IVP Administration Document 12/02/17 06:12 CNR (Rec: 12/02/17 06:12 CNR [id number]) Charges for Administration # of IVP Administrations 1 Morphine Sulfate (Morphine) 2 mg IVP STAT STA Stop: 12/02/17 04:19 Last Admin: 12/02/17 05:09 Dose: 2 mg MAR Pain Assessment Document 12/02/17 05:09 CNR (Rec: 12/02/17 05:09 CNR [id number]) Pain Reassessment Is this a pain reassessment? No IVP Administration Document 12/02/17 05:09 CNR (Rec: 12/02/17 05:09 CNR [id number]) Charges for Administration # of IVP Administrations 1 Sodium Polystyrene Sulfonate (Kayexalate Susp) 30 gm PO ONCE ONE Stop: 12/02/17 06:04 Last Admin: 12/02/17 06:12 Dose: 30 gm - Scribe Statement The provider has reviewed the documentation as recorded by the Yanet Jackson Provider Busteribe Attestation: All medical record entries made by the Yanet were at my direction and personally dictated by me. I have reviewed the chart and agree that the record accurately reflects my personal performance of the history, physical exam, medical decision making, and the department course for this patient. I have also personally directed, reviewed, and agree with the discharge instructions and disposition. Disposition/Present on Arrival - Present on Arrival Any Indicators Present on Arrival: No History of DVT/PE: No History of Uncontrolled Diabetes: No Urinary Catheter: No History of Decub. Ulcer: No History Surgical Site Infection Following: None - Disposition Have Diagnosis and Disposition been Completed?: Yes Diagnosis: Esophagitis, Gastritis Disposition: HOME/ ROUTINE Disposition Time: 06:28 Patient Plan: Discharge Patient Problems: Current Active Problems Problem Status Onset Esophagitis Acute Gastritis Acute Condition: GOOD Discharge Instructions (ExitCare): Gastritis (DC) Additional Instructions: Take meds as prescribed/follow up with today as scheduled Prescriptions: Pantoprazole Sodium [Protonix] 40 mg PO DAILY #21 ect Referrals: Ranjith Rubalcava MD [Primary Care Provider] - Follow up with primary Forms: Dining Secretary (Syriac)
[2017-12-02] MEDS ORDERED: DiphenhydrAMINE 50 mg/ml Inj ONE (05:14)
[2017-12-02] MEDS ORDERED: DiphenhydrAMINE 50 mg/ml Inj IVP STA (05:15)
[2017-12-02 05:18] LABS: VENOUS BLOOD GAS BASE EXCESS 6.7 mmol/L (0.0-2.0); VENOUS BLOOD GAS PO2 29 mm/Hg (30-55); VENOUS BLOOD PH 7.39 (7.32-7.43)
[2017-12-02 05:33] LABS: HEMOGLOBIN 10.5 g/dL (12.0-16.0); INR 1.09; MEAN CELL VOLUME 101.3 fl (80.0-105.0); MEAN CORPUSCULAR HEMOGLOBIN 33.1 pg (25.0-35.0); MEAN CORPUSCULAR HGB CONC 32.7 g/dl (31.0-37.0); MEAN PLATELET VOLUME 10.3 fl (7.0-11.0); PROTHROMBIN TIME 12.6 SECONDS; RBC 3.17 10^6/uL (3.5-6.1); RED CELL DISTRIBUTION WIDTH 14.6 % (11.5-14.5)
[2017-12-02 05:36] LABS: PARTIAL THROMBOPLASTIN TIME 30.9 Seconds
[2017-12-02 05:40] LABS: TROPONIN I 0.03 ng/mL
[2017-12-02 05:54] LABS: ALB/GLOB RATIO 0.8 (1.1-1.8); ALBUMIN 4.4 g/dL (3.0-4.8); CALCIUM 8.7 mg/dL (8.4-10.5)
[2017-12-02] MEDS ORDERED: Sod Polystyrene Sulf 15 gm/60 ml Susp PO ONE (06:03)
[2017-12-02 06:49] VITALS: BP 113/73; PULSE 71; RESP 18; O2SAT 98
--- NOTE | 2017-12-02 07:52 | RAD ---
Date of service: 12/02/2017 HISTORY: pain COMPARISON: 10/07/2017 FINDINGS: LUNGS: Prior coalescent airspace opacities compatible with pulmonary edema have largely cleared. Interval insertion dialysis catheter tip superior vena cava right atrial junction. No interval consolidation. PLEURA: No significant pleural effusion identified, no pneumothorax apparent. CARDIOVASCULAR: Mild cardiomegaly-similar Prior pulmonary edema -cleared OSSEOUS STRUCTURES: No significant abnormalities. VISUALIZED UPPER ABDOMEN: Normal. OTHER FINDINGS: None. IMPRESSION: Prior pulmonary edema cleared Other findings -as above.
--- NOTE | 2017-12-02 09:04 | CARD ---
APPROVED REPORT Date of service: 12/02/2017 EKG Measurement Heart [id number] [place] 146P42 [id number] <Conclusion> Normal sinus rhythm Possible Left atrial enlargement Prolonged QT Abnormal ECG
--- NOTE | 2017-12-02 09:18 | CT ---
Date of service: 12/02/2017 PROCEDURE: CT NECK WITHOUT CONTRAST HISTORY: dysphagia COMPARISON: None available. TECHNIQUE: CT of the neck without intravenous contrast. Coronal and sagittal reformats generated. Radiation dose: DLP mGy-cm This CT exam was performed using one or more of the following dose reduction techniques: Automated exposure control, adjustment of the mA and/or kV according to patient size, and/or use of iterative reconstruction technique. FINDINGS: NASOPHARYNX: Unremarkable. SUPRAHYOID NECK: Unremarkable oropharynx, oral cavity, parapharyngeal space and retropharyngeal space. INFRAHYOID NECK: Unremarkable larynx, hypopharynx, and supraglottic space. Vocal cords intact. MASS: None. GLANDS: Parotid and submandibular glands unremarkable. Normal size thyroid gland, without nodule. LYMPH NODES: Normal. No lymphadenopathy. CERVICAL SPINE: No fracture or focal lesion. OTHER FINDINGS: Vascular calcifications. Right CVP line with tip in the SVC. IMPRESSION: No acute pathology.
--- NOTE | 2017-12-02 09:27 | CT ---
Date of service: 12/02/2017 PROCEDURE: CT Chest and abdomen without intravenous and oral contrast HISTORY: pain COMPARISON: None available. TECHNIQUE: IV dose administered: Radiation dose: Total exam DLP = mGy-cm. This CT exam was performed using one or more of the following dose reduction techniques: Automated exposure control, adjustment of the mA and/or kV according to patient size, and/or use of iterative reconstruction technique. FINDINGS: CT CHEST: LUNGS: Clear. No nodule, mass or consolidation. MEDIASTINUM: Cardiomegaly. Normal caliber aorta and pulmonary arterial trunk. No aortic dissection. Normal size heart. LYMPH NODES: Unremarkable. PLEURA: Unremarkable. No pneumothorax. No pleural fluid. BONES: Unremarkable. OTHER FINDINGS:: None. CT ABDOMEN: LIVER: Unremarkable. No gross lesion or ductal dilatation. GALLBLADDER AND BILE DUCTS: Extrahepatic biliary dilatation consist with post cholecystectomy state. PANCREAS: Unremarkable. No gross lesion or ductal dilatation. SPLEEN: Unremarkable. ADRENALS: Unremarkable. No mass. KIDNEYS AND URETERS: Severe bilateral renal atrophy. VASCULATURE: Unremarkable. No aortic aneurysm. STOMACH AND BOWEL: Unremarkable, as visualized. The entire bowel was not visualized, as the pelvis was not included in this study. PERITONEUM: Unremarkable. No free fluid. No free air. LYMPH NODES: Unremarkable. No enlarged lymph nodes. BONES: No acute fracture. OTHER FINDINGS: None. IMPRESSION: Cardiomegaly. Atrophic kidneys. Cholecystectomy.
== END 2017-12-02 06:49 | disposition home or self-care (01) ==
LOC: ED 03:31
DX: K20.9 Esophagitis, unspecified (principal); K29.70 Gastritis, unspecified, without bleeding; I13.2 Hypertensive heart and chronic kidney disease with heart failure and with stage 5 chronic kidney disease, or end stage renal disease; N18.6 End stage renal disease; Z99.2 Dependence on renal dialysis; I25.10 Atherosclerotic heart disease of native coronary artery without angina pectoris; I50.22 Chronic systolic (congestive) heart failure; I25.2 Old myocardial infarction; Z95.5 Presence of coronary angioplasty implant and graft; Z91.14 Patient's other noncompliance with medication regimen; Z87.891 Personal history of nicotine dependence
CPT/HCPCS: 70490; 71045; 71250; 74150; 80053; 82550; 82803; 83615; 84484; 85027; 85610; 85730; 93005; 96374; 96375; 99283; J1200; J2270

== ENCOUNTER 2018-01-13 06:29 | Inpatient (IN) | payer MEDICARE, OTHER ==
[2018-01-07 12:21] VITALS: BMI 22.4
[2018-01-13 07:29] LABS: BASO # 0.01 K/mm3 (0.0-2.0); BASO % 0.2 % (0.0-3.0); EOS # 0.1 (0.0-0.7); EOS % 1.5 % (1.5-5.0); GRAN # 2.61 (1.4-6.5); GRAN % 63.8 % (50.0-68.0); HEMOGLOBIN 8.7 g/dL (12.0-16.0); LYMPH # 0.8 (1.2-3.4); LYMPH % 20.3 % (22.0-35.0); MEAN CELL VOLUME 102.1 fl (80.0-105.0); MEAN CORPUSCULAR HEMOGLOBIN 30.9 pg (25.0-35.0); MEAN CORPUSCULAR HGB CONC 30.2 g/dl (31.0-37.0); MEAN PLATELET VOLUME 11.6 fl (7.0-11.0); MONO # 0.6 (0.1-0.6); MONO % 14.2 % (1.0-6.0); RBC 2.82 10^6/uL (3.5-6.1); RED CELL DISTRIBUTION WIDTH 15.1 % (11.5-14.5); WHITE BLOOD COUNT 4.1 10^3/ul (4.5-11.0)
[2018-01-13 07:37] LABS: INR 1.04; PARTIAL THROMBOPLASTIN TIME 34.7 Seconds (25.1-36.5)
[2018-01-13 07:48] LABS: CALCIUM 8.1 mg/dL (8.4-10.5)
[2018-01-13] MEDS ORDERED: Phenylephrine 10 mg/ml Inj ONE (08:54)
[2018-01-13] MEDS ORDERED: Midazolam 2 MG/2 ML VIAL ONE ×2 (08:54→09:26)
[2018-01-13] MEDS ORDERED: Iodixanol 320 MG/ML 100 ML BOTTLE IV ONE (08:55)
[2018-01-13] MEDS ORDERED: Iodixanol 320 MG/ML 200 ML BOTTLE IV ONE (08:55)
[2018-01-13] MEDS ORDERED: Iohexol 350mgl/ml 50 ML ONE (08:55)
[2018-01-13] MEDS ORDERED: Nitroglycerin 50mg in D5W 50 MG/250 ML BOTTLE IV ONE (08:55)
[2018-01-13] MEDS ORDERED: Flumazenil 0.1 mg/ml Inj (5ml) IVP ONE (09:40)
[2018-01-13] MEDS ORDERED: Adenosine 90 mg/30mL IV ONE (09:42)
[2018-01-13] MEDS ORDERED: Naloxone 0.4 mg/ml Inj (Adult) ONE (09:42)
[2018-01-13] MEDS ORDERED: Sodium Chloride 0.9% 1,000 ML IV SCH (10:15)
--- NOTE | 2018-01-13 10:28 | CARD ---
APPROVED REPORT Date of service: 01/13/2018 EKG Measurement Heart [id number] [place] 144P15 [id number] <Conclusion> Normal sinus rhythm Moderate voltage criteria for LVH, may be normal variant ST abnormality, possible digitalis effect Prolonged QT Abnormal ECG
--- NOTE | 2018-01-13 10:36 | CARDCATH ---
PROCEDURE DATE: 01/13/2018 CARDIAC CATHETERIZATION HISTORY: The patient is a 57-year-old woman with a history of HIV, end-stage renal disease, multiple stents in the past, who presents with recurrent chest pain and an abnormal stress test. Because of this, a cardiac catheterization was recommended. PROCEDURE: Left heart catheterization with coronary arteriography and left ventriculogram. The right femoral artery was cannulated with a 6-[place] sheath. There were no complications. I performed moderate sedation, which included the presence of a trained independent observer that assisted in monitoring the patient's level of consciousness and physiologic status. After administration of Versed and fentanyl, my intra service time was 15 minutes. The findings on the catheterization revealed a left ventricle that was diffusely hypokinetic. Estimated ejection fraction is between 40% and 45%. Her coronary anatomy revealed a right dominant circulation. The RCA revealed diffuse atherosclerosis without critical lesions. The left main artery revealed intimal irregularities without critical lesions. The LAD revealed diffuse atherosclerosis with patent stents in the proximal and midportion. There is a 50% stenosis in the midportion of the LAD. The circumflex artery and obtuse marginal branches revealed patent stents with no critical lesions. Angio-Seal was used to close the femoral artery site. The patient tolerated the procedure well. In summary, the procedure revealed patent stents in the LAD and circumflex artery. There is a 50% stenosis in the midportion of the LAD. LV function is better than reported on stress test with an EF of 40-45%. Given these findings, the patient's treatment should be continued medical therapy. I had an extensive discussion with the patient about the need to be compliant with medications. Derrick Tran MD
[2018-01-13] MEDS ORDERED: Ergocalciferol 50,000 Intl Units Cap PO SCH (11:30)
[2018-01-13] MEDS ORDERED: POLYETHYLENE GLYCOL 3350 17 GM/Dose PACKET PO SCH (11:30)
[2018-01-13] MEDS: Sodium Chloride 0.9% 1,000 ML IV SCH (11:48)
--- NOTE | 2018-01-13 12:42 | CARD ---
APPROVED REPORT Date of service: 01/13/2018 EKG Measurement Heart [id number] [place] 144P54 [id number] <Conclusion> Normal sinus rhythm Possible Left atrial enlargement Prolonged QT Abnormal ECG
[2018-01-13] MEDS: Levalbuterol 0.63 MG/3 ML Inhal Soln UD IH SCH ×2 (13:42→21:00)
[2018-01-13] MEDS: Acetylcysteine 20% Inhal Soln (4ml) IH SCH ×2 (13:42→21:00)
[2018-01-13] MEDS ORDERED: Levalbuterol 0.63 MG/3 ML Inhal Soln UD IH SCH (14:00)
[2018-01-13] MEDS ORDERED: ACETYLCYSTEINE 20% IH SCH (14:00)
[2018-01-13] MEDS ORDERED: CALCIUM ACETATE PO SCH (14:00)
[2018-01-13] MEDS: Atovaquone 750 mg/5 ml Susp UD PO SCH (17:13)
[2018-01-13] MEDS: Omega-3-Acid Ethyl Esters 1 GM Cap PO SCH (17:13)
[2018-01-13 18:36] LABS: HEMOGLOBIN 8.5 g/dL (12.0-16.0); MEAN CELL VOLUME 101.1 fl (80.0-105.0); MEAN CORPUSCULAR HEMOGLOBIN 30.7 pg (25.0-35.0); MEAN CORPUSCULAR HGB CONC 30.4 g/dl (31.0-37.0); MEAN PLATELET VOLUME 11.6 fl (7.0-11.0); RBC 2.77 10^6/uL (3.5-6.1); RED CELL DISTRIBUTION WIDTH 15.3 % (11.5-14.5)
[2018-01-13 18:40] LABS: VENOUS BLOOD GAS BASE EXCESS 1.5 mmol/L (0.0-2.0); VENOUS BLOOD GAS PO2 74 mm/Hg (30-55)
[2018-01-13 18:49] LABS: ALB/GLOB RATIO 0.8 (1.1-1.8); ALBUMIN 3.6 g/dL (3.0-4.8); ALT/SGPT 30 U/L (7-56); AST/SGOT 70 U/L (14-36); BLOOD UREA NITROGEN 15 mg/dL (7-21); CALCIUM 7.5 mg/dL (8.4-10.5); GFR NON-AFRICAN AMERICAN 10
--- NOTE | 2018-01-13 19:01 | PCM.RRT ---
Addendum entered and electronically signed by Hernesto Lopez DO 01/13/18 19:16: Call placed to Primary Physician Service x2. Awaiting callback. Original Note: <Hernesto Lopez - Last Filed: 01/13/18 18:57> I.Reason for RD SCIENTIST - A) Acute Change in Patient: (Select all that apply): Acute change in SBP below - Neurological Status (Select all that apply): Alert, Responsive, Oriented, Verbal, Follows Commands - Respiratory Oxygen Delivery Method: Non Rebreather @% - Constitutional Appears: No Acute Distress - Head Head Exam: ATRAUMATIC, NORMAL INSPECTION, NORMOCEPHALIC - Eyes Eye Exam: EOMI, Normal appearance. absent: Conjunctival injection - Respiratory Exam Respiratory Exam: NORMAL BREATHING PATTERN. absent: Accessory Muscle Use - Cardiovascular Exam Cardiovascular Exam: Tachycardia, +S1, +S2 - GI/Abdominal Exam GI & Abdominal Exam: Soft, Tenderness. absent: Distended, Rigid, Rebound - Neurological Exam Neurological Exam: Alert, Awake, Oriented x3 - Extremities Exam Extremities Exam: Normal Inspection. absent: Tenderness Additional comments: R-groin incision site clean dry intact; no hematoma Plan - Assessment of Findings&Treatment Plan Hernesto Lopez, PGY1 RD SCIENTIST Note for Dr. Britt RD SCIENTIST was called for hypotension. Patient is a 57 y/o F that has received HD today and diagnostic cath. Patient was noted to have BP's in 70s/40s. She was also febrile during presentation (Temp 102) and tachycardic (HR in 110s). Patient was asymptomatic. She did not complain of any chills, chest pain, shortness of breath, lightheadedness, or dizziness. Patient was initially given a 250 cc NS fluid bolus x1. Patient's blood pressures were recycled; repeat pressures remained in the 70s/40s. Patient's had cardiac cath today; there was no hematoma or active bleed noted on exam. Patient was administered another fluid bolus of 250 cc after blood pressures were not responding adequately to fluid resuscitation. Patient's blood pressures sustained in 70s/40s. CXR reviewed: no acute signs of PNA. EKG reviewed indicated sinus tachycardia with no specific ST changes. Patient case endorsed ICU team. ICU team evaluated patient at bedside. Accepted patient to ICU for further management. Patient case endorsed to night team for follow up for aformentioned labs. Blood culture, cbc, cmp, vbg shock panel ordered and pending. Patient seen. Case discussed with and plan approved by Attending Physicians, Dr. Yamileth Britt and Dr. Bustos. <Yamileth Britt R - Last Filed: 01/18/18 13:27> RD SCIENTIST Nurse Assessment - Vital Signs Vital Sign: Rapid Response Vital Sign Blood Pressure 74/47 Pulse Rate 114 Temperature 102.3 F Oxygen Saturation 100 - Vital Signs at end of RD SCIENTIST Vital Signs at end of RD SCIENTIST: Rapid Response End Vital Sign Blood Pressure 80/50 Pulse Rate 105 Temperature 103.1 F O2 Sat by Pulse Oximetry 94 Attending/Attestation - Attestation I have personally seen and examined this patient.: Yes I have fully participated in the care of the patient.: Yes I have reviewed all pertinent clinical information, including history, physical exam and plan: Yes Notes (Text): Patient seen and examined by me with resident 01/13/18. Case discussed with resident. Agree with above with following additions/corrections. Rapid response called for hypotension. Patient is a 57 year old female with ESRD on HD. Patient presented for diagnostic cardiac cath. Patient is s/p cardiac catheterization and dialysis. Patient is blood pressure found to be in the 70s/40s. Patient given 250ml fluid bolus with no improvement. Temperature taken and found to be 102. Rectal temperature taken and found to be 103. Patient refused to take tylenol. Rectal tylenol offered. Patient continued to refuse. Patient given another 250ml bolus without improvement in blood pressure. ICU consulted. Discussed with Dr. Bustos. Patient transferred to ICU. Shock panel and labs ordered. Patient states she is feeling ok. Patient complains of dry mouth and headache. Patient states tylenol makes her stomach hurt. Discusses at length with patient. Patient still refused. Patient denies any chest pain or shortness of breath. No dizziness. No nausea, vomiting, or abdominal pain. Physical exam: General: Awake and alert lying in bed in acute distress. HEENT: Normocephalic atraumatic. Pupils equal and reactive. Neck is supple. Cardiovascular: Normal rhythm. Normal S1, S2. Pulmonary: Normal respiratory effort. No rhonchi, rales or wheezing appreciated. Gastrointestinal: Soft, nondistended. Nontender. Positive bowel sounds all 4 quadrants, no guarding. No oraganomegaly appreciated. Musculoskeletal: Moves all extremities. No calf tenderness. Central nervous system: AAO 3. CN2-12 grossly intact.
[2018-01-13] MEDS ORDERED: Piperacillin/Tazobact 2.25gm 2.25 GM/100 ML BAG IVPB STA (20:01)
[2018-01-13] MEDS ORDERED: Vancomycin 1gm in NS 250ml 1 GM/250 ML BAG IVPB STA (20:01)
[2018-01-13 20:04] LABS: TROPONIN I 0.06 ng/mL
--- NOTE | 2018-01-13 20:24 | CARD ---
APPROVED REPORT Date of service: 01/13/2018 EKG Measurement Heart [id number] [place] 126P55 [id number] <Conclusion> Sinus tachycardia Moderate voltage criteria for LVH, may be normal variant Nonspecific ST abnormality Abnormal ECG
[2018-01-13] MEDS ORDERED: Sodium Chloride 0.9% 250 ML IV STA (21:06)
--- NOTE | 2018-01-13 21:26 | CP.PCM.CON ---
<Mile Vallejo - Last Filed: 01/14/18 03:26> History of Present Illness - History of Present Illness History of Present Illness: Mile Vallejo, PGY-1 Consult Note for ICU This is a 57 year old female with PMG of chronic systolic heart failure, ESRD on HD on Fri/Fri/Fri, CAD with multiple stent placement in past, medication non- compliance, chronic anemia, secondary hyperparathyroidism, hypothyroidism and HIV with last CD4 of 79 presenting to ICU s/p rapid response for BP in the 70s/ 40s, fever of 102 and HR of 110s. 2 boluses of 250ml NS were given with no improvement of BP. Patient underwent cardiac cath this morning for chest pain which revealed 50% stenosis of the mid LAD, EF of 40-45% and patent stents in the LAD and circumflex arteries with recommendations of continued medical therapy and medication compliance. Per patient, last hemodialysis was yesterday (Friday). At this time, patient admits to nausea. She denies CP, SOB, chills, vomiting, urinary complaints, back pain, swelling, headaches, abdominal pain, numbness, tingling, recent sickness and recent travel. 12 point ROS noted here, otherwise unremarkable. Patient will be monitored in the ICU. PMD: Dr. Rubalcava Nephro: Dr. Cardoso GI: Dr. Snider Cardio: Dr. Tran PMH: as above SH: lives in burns flat by herself. Denies smoking, drinking and drug use. Smoked 1ppd for 20 years, quit 20 years ago Sx: x4, gallbladder removal, cardiac stent placement FH: CAD, DM, HTN All: MAVIS inhibitors Past Patient History - Infectious Disease Hx of Infectious Diseases: None - Tetanus Immunizations Tetanus Immunization: Unknown - Past Medical History & Family History Past Medical History?: Yes - Past Social History Smoking Status: Former Smoker - CARDIAC Hx Pacemaker: No - PULMONARY Hx Chronic Obstructive Pulmonary Disease (COPD): No - NEUROLOGICAL Hx Paralysis: No - HEENT Hx HEENT Problems: No - RENAL Hx Renal Failure: Yes (ESRD/ on Hemo 3x/wk) - ENDOCRINE/METABOLIC Hx Hypothyroidism: Yes - HEMATOLOGICAL/ONCOLOGICAL Hx Blood Transfusions: Yes Hx Blood Transfusion Reaction: No - INTEGUMENTARY Hx Dermatological Problems: Yes (generalized body itch on and off) - MUSCULOSKELETAL/RHEUMATOLOGICAL Hx Musculoskeletal Disorders: Yes (CERVICAL DISC) - GASTROINTESTINAL Hx Gastrointestinal Disorders: Yes Hx Crohn's Disease: No Hx Gall Bladder Disease: Yes Hx Gastroesophageal Reflux: Yes Hx Pancreatitis: Yes HX Swallowing Problems: No - GENITOURINARY/GYNECOLOGICAL Hx Genitourinary Disorders: Yes Hx Sexually Transmitted Disorders: Yes (HIV/AIDS) Hx Urinary Tract Infection: Yes - PSYCHIATRIC Hx Emotional Abuse: No Hx Physical Abuse: No Hx Substance Use: Yes (Quit 25 years ago) - SURGICAL HISTORY Hx Surgeries: Yes (R CHEST HD CATH PLACEMENT;PTCA/STENTS X4;) - ANESTHESIA Hx Anesthesia Reactions: No Hx Malignant Hyperthermia: No Meds Allergies/Adverse Reactions: Allergies Allergy/AdvReac Type Severity Reaction Status Date / Time MAVIS Inhibitors Allergy Severe SWELLING Verified 01/07/18 12:20 - Medications Medications: Current Medications Abacavir Sulfate (Ziagen) 300 mg PO BID [facility] PRN Reason: Protocol Last Admin: 01/13/18 17:15 Dose: Not Given Acetaminophen (Tylenol 325mg Tab) 650 mg PO Q6 PRN PRN Reason: TEMP>=99.5F Last Admin: 01/13/18 15:32 Dose: 650 mg Acetaminophen (Tylenol 650 Mg Supp) 650 mg RC Q6H PRN PRN Reason: TEMP>=99.5F Acetaminophen (Tylenol 325mg Tab) 650 mg PO Q4H PRN PRN Reason: Fever >100.4 F Acetylcysteine (Acetylcysteine 20%) 4 ml IH [id number] [facility] Last Admin: 01/13/18 13:42 Dose: Not Given Aspirin (Ecotrin) 81 mg PO DAILY [facility] Last Admin: 01/13/18 17:13 Dose: Not Given Atorvastatin Calcium (Lipitor) 40 mg PO DIN [facility] Atovaquone (Mepron) 750 mg PO BID [facility] PRN Reason: Protocol Last Admin: 01/13/18 17:13 Dose: Not Given Calcium Acetate (Phoslo) 1,334 mg PO TID [facility] Last Admin: 01/13/18 17:14 Dose: Not Given Docusate Sodium (Colace) 100 mg PO TID [facility] Last Admin: 01/13/18 17:12 Dose: Not Given Ergocalciferol (Drisdol 50,000 Intl Units Cap) 1 cap PO Q7D [facility] Folic Acid (Folic Acid) 1 mg PO DAILY [facility] Hydroxyzine HCl (Atarax) 25 mg PO BID PRN PRN Reason: Anxiety Sodium Chloride (Sodium Chloride 0.9%) 1,000 mls @ 10 mls/hr IV .Q24H [facility] Last Admin: 01/13/18 11:48 Dose: 10 mls/hr Vancomycin HCl (Vancomycin 1gm) 1 gm in 250 mls @ 167 mls/hr IVPB STAT STA PRN Reason: Protocol Stop: 01/13/18 21:30 Sodium Chloride (Sodium Chloride 0.9%) 250 mls @ 999 mls/hr IV .Q16M [facility] Stop: 01/13/18 21:21 Acetaminophen (Ofirmev) 1,000 mg in 100 mls @ 400 mls/hr IVPB Q8 [facility] Stop: 01/15/18 22:01 Levalbuterol HCl (Xopenex) 0.63 mg IH [id number] [facility] Last Admin: 01/13/18 13:42 Dose: Not Given Levothyroxine Sodium (Synthroid) 25 mcg PO 0600 [facility] Metoclopramide HCl (Reglan) 5 mg IVP Q6H [facility] Midodrine (Proamatine) 5 mg PO TID [facility] Multivitamins (Thera Tab) 1 tab PO DAILY [facility] Non-Formulary Medication (Darunavir Ethanolate [Prezista]) 150 mg PO HS [facility] [id number] Ethyl Esters (Lovaza) 1 gm PO BID [facility] Last Admin: 01/13/18 17:13 Dose: Not Given Ondansetron HCl (Zofran Inj) 4 mg IVP Q4H PRN PRN Reason: Nausea/Vomiting Pantoprazole Sodium (Protonix Inj) 40 mg IVP Q12 [facility] Last Admin: 01/13/18 17:14 Dose: Not Given Polyethylene Glycol (Miralax) 17 gm PO BID [facility] Ritonavir (Norvir) 100 mg PO DAILY [facility] PRN Reason: Protocol Physical Exam - Constitutional Appears: No Acute Distress - Head Exam Head Exam: ATRAUMATIC, NORMAL INSPECTION - Eye Exam Eye Exam: EOMI Pupil Exam: PERRL - Respiratory Exam Respiratory Exam: Clear to Auscultation Bilateral, NORMAL BREATHING PATTERN. absent: Respiratory Distress - Cardiovascular Exam Cardiovascular Exam: Tachycardia, REGULAR RHYTHM, +S1, +S2 - GI/Abdominal Exam GI & Abdominal Exam: Normal Bowel Sounds. absent: Distended, Firm - Extremities Exam Extremities exam: Positive for: normal inspection. Negative for: calf tenderness - Back Exam Back exam: NORMAL INSPECTION - Neurological Exam Neurological exam: Alert, Oriented x3 - Skin Skin Exam: Normal Color, Warm Additional comments: right femoral access site is non bleeding and no hematoma or discoloration noted Results - Vital Signs Recent Vital Signs: Last Vital Signs Temp 101.9 F H 01/13/18 15:31 Pulse 105 H 01/13/18 19:21 Resp 18 01/13/18 16:10 BP 94/33 L 01/13/18 16:10 Pulse Ox 96 01/13/18 16:10 - Labs Result Diagrams: 01/13/18 18:36 01/13/18 18:36 Labs: Laboratory Results - last 24 hr 01/13/18 01/13/18 01/13/18 07:12 07:12 07:12 WBC 4.1 L RBC 2.82 L Hgb 8.7 L Hct 28.8 L MCV 102.1 MCH 30.9 MCHC 30.2 L RDW 15.1 H Plt Count 91 L MPV 11.6 H Gran % 63.8 Lymph % (Auto) 20.3 L [place] % (Auto) 14.2 H Eos % (Auto) 1.5 Baso % (Auto) 0.2 Gran # 2.61 Lymph # (Auto) 0.8 L [place] # (Auto) 0.6 Eos # (Auto) 0.1 Baso # (Auto) 0.01 PT 12.0 INR 1.04 APTT 34.7 pO2 VBG pH VBG pCO2 VBG HCO3 VBG Total CO2 VBG O2 Sat (Calc) VBG Base Excess VBG Potassium Glucose Lactate FiO2 Sodium 139 Potassium 4.5 Chloride 96 L Carbon Dioxide 34 H Anion Gap 14 BUN 30 H Creatinine 8.5 H* Est GFR ( Amer) 6 Est GFR (Non-Af Amer) 5 Random Glucose 86 Calcium 8.1 L Total Bilirubin AST ALT Alkaline Phosphatase Total Creatine Kinase Troponin I Total Protein Albumin Globulin Albumin/Globulin Ratio Triglycerides 348 H Cholesterol 153 LDL Cholesterol Direct 49 HDL Cholesterol 34 Venous Blood Potassium Blood Type Antibody Screen Crossmatch BBK History Checked 01/13/18 01/13/18 01/13/18 07:12 18:36 18:36 WBC 9.0 D RBC 2.77 L Hgb 8.5 L Hct 28.0 L MCV 101.1 MCH 30.7 MCHC 30.4 L RDW 15.3 H Plt Count 87 L MPV 11.6 H Gran % Lymph % (Auto) [place] % (Auto) Eos % (Auto) Baso % (Auto) Gran # Lymph # (Auto) [place] # (Auto) Eos # (Auto) Baso # (Auto) PT INR APTT pO2 VBG pH VBG pCO2 VBG HCO3 VBG Total CO2 VBG O2 Sat (Calc) VBG Base Excess VBG Potassium Glucose Lactate FiO2 Sodium 139 Potassium 3.8 Chloride 102 Carbon Dioxide 25 Anion Gap 15 BUN 15 Creatinine 4.5 H Est GFR ( Amer) 12 Est GFR (Non-Af Amer) 10 Random Glucose 85 Calcium 7.5 L Total Bilirubin 0.8 AST 70 H D ALT 30 Alkaline Phosphatase 104 Total Creatine Kinase Troponin I Total Protein 8.2 Albumin 3.6 Globulin 4.7 Albumin/Globulin Ratio 0.8 L Triglycerides Cholesterol LDL Cholesterol Direct HDL Cholesterol Venous Blood Potassium Blood Type A POSITIVE Antibody Screen Negative Crossmatch See Detail BBK History Checked Patient has bt 01/13/18 01/13/18 18:36 18:36 WBC RBC Hgb Hct MCV MCH MCHC RDW Plt Count MPV Gran % Lymph % (Auto) [place] % (Auto) Eos % (Auto) Baso % (Auto) Gran # Lymph # (Auto) [place] # (Auto) Eos # (Auto) Baso # (Auto) PT INR APTT pO2 74 H VBG pH 7.40 VBG pCO2 43.0 VBG HCO3 26.6 VBG Total CO2 27.9 VBG O2 Sat (Calc) 97.0 H VBG Base Excess 1.5 VBG Potassium 3.4 L Glucose 78 Lactate 1.6 FiO2 21.0 Sodium 141.0 Potassium Chloride 108.0 H Carbon Dioxide Anion Gap BUN Creatinine Est GFR ( Amer) Est GFR (Non-Af Amer) Random Glucose Calcium Total Bilirubin AST ALT Alkaline Phosphatase Total Creatine Kinase 51 Troponin I 0.06 D Total Protein Albumin Globulin Albumin/Globulin Ratio Triglycerides Cholesterol LDL Cholesterol Direct HDL Cholesterol Venous Blood Potassium 3.4 L Blood Type Antibody Screen Crossmatch BBK History Checked Assessment & Plan - Assessment and Plan (Free Text) Assessment: This is a 57 year old female with PMG of chronic systolic heart failure, ESRD on HD on Fri/Fri/Fri, CAD with multiple stent placement in past, medication non- compliance, chronic anemia, secondary hyperparathyroidism, hypothyroidism and HIV with last CD4 of 79 presenting to ICU s/p rapid response for BP in the 70s/ 40s, fever of 102 and HR of 110s suspicious for sepsis. Plan: Neuro: -maintain normothermia -AAO x3, moving extremities spontaneously past midline Cardio: -hypotension s/p HD, will give 250ml NS bolus, consider pressors if no improvement -maintain MAP>65 -will monitor vitals including HR and BP closely -currently tachy in the 100s, BP 79s/40s -midodrine 5mg TID -lopressor 50mg BID -cardiac cath this morning for chest pain which revealed 50% stenosis of the mid LAD, EF of 40-45% and patent stents in the LAD and circumflex arteries with recommendations of continued medical therapy and medication compliance -cardiology on consult, Dr. Tran Lungs: -SaO2 >90% -supplementary O2 PRN -xopenex q6 -CXR shows no acute disease (interpreted by me) Renal: -maintain euvolemia -avoid nephrotoxic agents, hypochloremia -replace electrolytes as needed -BUN/Cr is 15/4.5 on HD Mon/Fri/Fri -Nephro on consult, Dr. Shukla Heme: -Hg today is 8.5, will monitor -transfuse 1u PRBC on HD, only if temp <99 Endo: -maintain euglycemia -synthroid 25mcg ID: -WBC is 9 today, febrile with Tmax 101.9 which is suspicious for sepsis -Lactic acid is 1.6 WNL -IV tylenol prn -given vanc and zosyn. Currently on zosyn -blood culture pending -procalc pending -continue home HIV therapy. Ritonavir, abacavir, mepron, darunavir -ID on consult, Dr. Pedro -GI: -renal diet -hepatitis B panel pending -abdominal xray pending -reglan 5mg IVP q6 -GI prophylaxis with protonix 40mg IVP q12 -GI on consult, Dr. Snider Patient seen and case discussed with attending, Dr. Niesha Vallejo, PGY-1 - Date & Time Date: 01/13/18 Time: 23:00 <Jack Scherer - Last Filed: 01/14/18 06:13> Meds - Medications Medications: Current Medications Abacavir Sulfate (Ziagen) 300 mg PO BID [facility] PRN Reason: Protocol Last Admin: 01/13/18 17:15 Dose: Not Given Acetaminophen (Tylenol 325mg Tab) 650 mg PO Q6 PRN PRN Reason: TEMP>=99.5F Last Admin: 01/13/18 15:32 Dose: 650 mg Acetaminophen (Tylenol 650 Mg Supp) 650 mg RC Q6H PRN PRN Reason: TEMP>=99.5F Acetaminophen (Tylenol 325mg Tab) 650 mg PO Q4H PRN PRN Reason: Fever >100.4 F Acetylcysteine (Acetylcysteine 20%) 4 ml IH [id number] [facility] Last Admin: 01/14/18 02:23 Dose: Not Given Aspirin (Ecotrin) 81 mg PO DAILY [facility] Last Admin: 01/13/18 17:13 Dose: Not Given Atorvastatin Calcium (Lipitor) 40 mg PO DIN [facility] Atovaquone (Mepron) 750 mg PO BID [facility] PRN Reason: Protocol Last Admin: 01/13/18 17:13 Dose: Not Given Calcium Acetate (Phoslo) 1,334 mg PO TID [facility] Last Admin: 01/13/18 17:14 Dose: Not Given Docusate Sodium (Colace) 100 mg PO TID [facility] Last Admin: 01/13/18 17:12 Dose: Not Given Ergocalciferol (Drisdol 50,000 Intl Units Cap) 1 cap PO Q7D [facility] Folic Acid (Folic Acid) 1 mg PO DAILY [facility] Hydroxyzine HCl (Atarax) 25 mg PO BID [facility] PRN Reason: Anxiety Sodium Chloride (Sodium Chloride 0.9%) 1,000 mls @ 10 mls/hr IV .Q24H [facility] Last Admin: 01/13/18 11:48 Dose: 10 mls/hr Acetaminophen (Ofirmev) 1,000 mg in 100 mls @ 400 mls/hr IVPB Q8 [facility] Stop: 01/15/18 22:01 Last Admin: 01/14/18 05:46 Dose: 400 mls/hr Piperacillin Sod/Tazobactam Sod (Zosyn 2.25 Gm In 0.9% 100 Ml) 2.25 gm in 100 mls @ 100 mls/hr IVPB Q8 [facility] PRN Reason: Protocol Stop: 01/14/18 14:59 Levalbuterol HCl (Xopenex) 0.63 mg IH [id number] [facility] Last Admin: 01/14/18 02:23 Dose: Not Given Levothyroxine Sodium (Synthroid) 25 mcg PO 0600 [facility] Last Admin: 01/14/18 05:46 Dose: 25 mcg Metoclopramide HCl (Reglan) 5 mg IVP Q6H [facility] Last Admin: 01/14/18 02:30 Dose: 5 mg Midodrine (Proamatine) 5 mg PO TID [facility] Last Admin: 01/13/18 21:30 Dose: 5 mg Multivitamins (Thera Tab) 1 tab PO DAILY [facility] Non-Formulary Medication (Darunavir Ethanolate [Prezista]) 150 mg PO HS [facility] Last Admin: 01/13/18 21:48 Dose: Not Given [id number] Ethyl Esters (Lovaza) 1 gm PO BID [facility] Last Admin: 01/13/18 17:13 Dose: Not Given Ondansetron HCl (Zofran Inj) 4 mg IVP Q4H PRN PRN Reason: Nausea/Vomiting Pantoprazole Sodium (Protonix Inj) 40 mg IVP Q12 [facility] Last Admin: 01/13/18 22:54 Dose: 40 mg Polyethylene Glycol (Miralax) 17 gm PO BID [facility] Ritonavir (Norvir) 100 mg PO DAILY [facility] PRN Reason: Protocol Results - Vital Signs Recent Vital Signs: Last Vital Signs Temp 97.8 F 01/14/18 00:11 Pulse 88 01/14/18 01:10 Resp 24 01/14/18 01:10 BP 80/36 L 01/14/18 01:00 Pulse Ox 98 01/14/18 01:10 - Labs Result Diagrams: 01/13/18 18:36 01/13/18 18:36 Labs: Laboratory Results - last 24 hr 01/13/18 01/13/18 01/13/18 07:12 07:12 07:12 WBC 4.1 L RBC 2.82 L Hgb 8.7 L Hct 28.8 L MCV 102.1 MCH 30.9 MCHC 30.2 L RDW 15.1 H Plt Count 91 L MPV 11.6 H Gran % 63.8 Lymph % (Auto) 20.3 L [place] % (Auto) 14.2 H Eos % (Auto) 1.5 Baso % (Auto) 0.2 Gran # 2.61 Lymph # (Auto) 0.8 L [place] # (Auto) 0.6 Eos # (Auto) 0.1 Baso # (Auto) 0.01 PT 12.0 INR 1.04 APTT 34.7 pO2 VBG pH VBG pCO2 VBG HCO3 VBG Total CO2 VBG O2 Sat (Calc) VBG Base Excess VBG Potassium Glucose Lactate FiO2 Sodium 139 Potassium 4.5 Chloride 96 L Carbon Dioxide 34 H Anion Gap 14 BUN 30 H Creatinine 8.5 H* Est GFR ( Amer) 6 Est GFR (Non-Af Amer) 5 Random Glucose 86 Calcium 8.1 L Total Bilirubin AST ALT Alkaline Phosphatase Total Creatine Kinase Troponin I Total Protein Albumin Globulin Albumin/Globulin Ratio Triglycerides 348 H Cholesterol 153 LDL Cholesterol Direct 49 HDL Cholesterol 34 Venous Blood Potassium Blood Type Antibody Screen Crossmatch BBK History Checked 01/13/18 01/13/18 01/13/18 07:12 18:36 18:36 WBC 9.0 D RBC 2.77 L Hgb 8.5 L Hct 28.0 L MCV 101.1 MCH 30.7 MCHC 30.4 L RDW 15.3 H Plt Count 87 L MPV 11.6 H Gran % Lymph % (Auto) [place] % (Auto) Eos % (Auto) Baso % (Auto) Gran # Lymph # (Auto) [place] # (Auto) Eos # (Auto) Baso # (Auto) PT INR APTT pO2 VBG pH VBG pCO2 VBG HCO3 VBG Total CO2 VBG O2 Sat (Calc) VBG Base Excess VBG Potassium Glucose Lactate FiO2 Sodium 139 Potassium 3.8 Chloride 102 Carbon Dioxide 25 Anion Gap 15 BUN 15 Creatinine 4.5 H Est GFR ( Amer) 12 Est GFR (Non-Af Amer) 10 Random Glucose 85 Calcium 7.5 L Total Bilirubin 0.8 AST 70 H D ALT 30 Alkaline Phosphatase 104 Total Creatine Kinase Troponin I Total Protein 8.2 Albumin 3.6 Globulin 4.7 Albumin/Globulin Ratio 0.8 L Triglycerides Cholesterol LDL Cholesterol Direct HDL Cholesterol Venous Blood Potassium Blood Type A POSITIVE Antibody Screen Negative Crossmatch See Detail BBK History Checked Patient has bt 01/13/18 01/13/18 18:36 18:36 WBC RBC Hgb Hct MCV MCH MCHC RDW Plt Count MPV Gran % Lymph % (Auto) [place] % (Auto) Eos % (Auto) Baso % (Auto) Gran # Lymph # (Auto) [place] # (Auto) Eos # (Auto) Baso # (Auto) PT INR APTT pO2 74 H VBG pH 7.40 VBG pCO2 43.0 VBG HCO3 26.6 VBG Total CO2 27.9 VBG O2 Sat (Calc) 97.0 H VBG Base Excess 1.5 VBG Potassium 3.4 L Glucose 78 Lactate 1.6 FiO2 21.0 Sodium 141.0 Potassium Chloride 108.0 H Carbon Dioxide Anion Gap BUN Creatinine Est GFR ( Amer) Est GFR (Non-Af Amer) Random Glucose Calcium Total Bilirubin AST ALT Alkaline Phosphatase Total Creatine Kinase 51 Troponin I 0.06 D Total Protein Albumin Globulin Albumin/Globulin Ratio Triglycerides Cholesterol LDL Cholesterol Direct HDL Cholesterol Venous Blood Potassium 3.4 L Blood Type Antibody Screen Crossmatch BBK History Checked Attending/Attestation - Attestation I have personally seen and examined this patient.: Yes I have fully participated in the care of the patient.: Yes I have reviewed all pertinent clinical information: Yes Notes (Text): Pt seen and examined independently. ?sepsis: Pt spiked temp of 103, tachy, and hypotensive blood cultures sent, start empiric antibiotics. discussed possibly starting pressors if pt does not respond to IVF, pt refused placement of central line. 01/14/18 06:11
--- NOTE | 2018-01-13 21:55 | CON ---
DATE: 01/13/2018 GASTROENTEROLOGY CONSULTATION REQUESTING PHYSICIAN: Ranjith Rubalcava MD REASON FOR CONSULT: I have been asked to see this 57-year-old female with end-stage renal disease, history of HIV disease, noncompliant with medications, coronary artery disease with multiple coronary artery stent placements in the past who underwent a cardiac catheterization for chest pain and an abnormal stress test. Cardiac catheterization this morning showed 50% stenosis of the mid LAD and patent stents in the LAD and circumflex arteries. She currently denies any abdominal pain, nausea, vomiting, heartburn, indigestion, shortness of breath, or palpitations. She has had multiple endoscopies and radiographic imaging over the last 12-18 months for chronic recurrent abdominal pain. She has chronic anemia. PAST MEDICAL HISTORY: As above. Again, she has a history of end-stage renal disease on hemodialysis, HIV positivity, noncompliant with antivirals, chronic anemia, chronic abdominal pain, and congestive heart failure. PAST SURGICAL HISTORY: Notable for cholecystectomy, AV shunt in her left arm, and . SOCIAL HISTORY: She is a former cigarette smoker, having quit over 20 years ago. She denies alcohol use. FAMILY HISTORY: Notable for diabetes mellitus and coronary artery disease. REVIEW OF SYSTEMS: A 14-point review of systems is notable for chest pain. PHYSICAL EXAMINATION: GENERAL: Thin female lying in bed, in no acute distress. VITAL SIGNS: Reveal temperature of 98.5, blood pressure 107/59, heart rate of 83. HEENT: Reveal sclerae to be white. Conjunctivae pale. NECK: Supple. CHEST: Reveal lungs to be clear. HEART: Reveals regular rate and rhythm. ABDOMEN: Soft, nontender. No mass. EXTREMITIES: Show no edema. She has an AV shunt in her left arm. LABORATORY DATA: Reveal white blood cell count of 4.1, hemoglobin 8.7. Chemistries reveal BUN 30, creatinine 8.5. IMPRESSION: A 57-year-old female with known coronary artery disease, chest pain, chronic abdominal pain. Her cardiac catheterization this morning revealed patent stents and a 50% occlusion of her LAD. Cardiology feels that her chest pain is noncardiac. She has had multiple endoscopies in the past. RECOMMENDATIONS: Continue PPI. No plans for any other GI workup at this time. Paul Snider MD [facility] # [id number]
[2018-01-13] MEDS ORDERED: DARUNAVIR ETHANOLATE PO SCH ×2 (22:00)
--- NOTE | 2018-01-14 00:24 | HP ---
DATE OF EXAM: 01/13/2018 HISTORY OF PRESENT ILLNESS: The patient is a 57-year-old female who was admitted post cardiac catheterization and possible angioplasty by Dr. Derrick Tran to telemetry. The patient underwent cardiac catheterization and possible angioplasty by Dr. Tran today. The patient was admitted overnight by the mass spectroscopist as per Cardiology recommendation. CODE STATUS: Full code. LIVING WILL ADVANCE DIRECTIVE: None. HEIGHT: 5 feet 2 inches. WEIGHT: 123. BMI: 22.5. HOME MEDICATIONS: As per the home medication list. The patient's home medications were verified as per the last discharge of 10/07/2017. The patient's last discharge medications were Abacavir 300 mg twice a day, Tylenol p.r.n. Mucomyst nebulizer 4 mL every 6 hours, Ecotrin 81 mg daily, Lipitor 20 or 40 mg daily, Mepron 750 twice a day, PhosLo 667 mg two capsules three times a day, vitamin B12 at 1000 mcg monthly, Prezista 150 mg at bedtime, Drisdol 50,000 units weekly, folic acid 1 mg daily, Atarax 25 mg b.i.d. p.r.n., lamivudine 150 mg daily, Xopenex nebulizer 0.63 mg every 6 hours, Synthroid 25 mcg daily, Lopressor 50 mg twice a day, multivitamin 1 tablet daily, Lovaza 1 g twice a day, Protonix 40 mg daily, MiraLax 17 g daily, ritonavir 100 mg daily. SOCIAL HISTORY: Substance abuser. Positive alcohol user in the past and positive heroin and marijuana user. Positive smoker. MENSTRUAL HISTORY: The patient denies being . FAMILY HISTORY: Not available at this time. PAST MEDICAL AND SURGICAL HISTORY: History of coronary artery disease; history of ischemic cardiomyopathy; history of hypertension; history of noncompliance; history of end-stage renal disease, hemodialysis dependent; history of AIDS nephropathy; history of advanced HIV/AIDS with CD-4 lymphopenia; history of pneumonia, history of doxycycline-induced esophagitis and esophageal ulcers; history of secondary hyperparathyroidism; history of hyperlipidemia; history of hypovitaminosis D; history of vitamin B12 deficiency; history of hypothyroidism; history of hypertriglyceridemia; history of constipation; history of chronic narcotic pain seeking syndrome; history of congestive heart failure; history of valvular disorder; history of mitral regurgitation; history of pulmonary hypertension; history of left upper extremity AV fistula placement; history of Tenckhoff catheter placement and removal; history of hypokalemia; history of dietary noncompliance; history of sepsis; history of multilobar healthcare-associated pneumonia; 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 PHYSICAL EXAMINATION: GENERAL: The patient is seen lying in the bed in room 573, bed 3. VITAL SIGNS: T-max is 100.5. Telemetry shows sinus rhythm, heart rate 83-86. Blood pressure is 107/59 to 100/58, respirations 18, O2 sat 96%. The patient is seen lying in the bed. The patient is on bedrest at present post cardiac catheterization. HEENT: Head examination normocephalic, atraumatic. HEENT examination shows positive frontal alopecia. Pale conjunctivae. Anicteric sclerae. No oropharyngeal lesion. NECK: No neck rigidity. Positive dialysis catheter noted. CHEST: Kyphosis. LUNGS: Shows occasional rhonchi, upper lung melchor anteriorly. CARDIOVASCULAR: S1, S2, regular rhythm. Positive systolic murmur, left sternal border, right second intercostal space, left second intercostal space. ABDOMEN: Soft. Positive surgical scar of the Tenckhoff catheter. No hepatosplenomegaly noted. GENITALIA: Female. RECTAL: Deferred. EXTREMITIES: Positive right groin dressing noted. Positive palpable pulses noted of the lower extremity. MUSCULOSKELETAL: Shows a body mass index of 22.5. NEUROLOGICAL: The patient is alert, awake, responsive, resting in bed. Gait examination is not tested. Motor strength is not tested. VASCULAR: Palpable pulses. LABORATORY DATA: The patient's diagnostics shows WBC 4.1, hemoglobin and hematocrit 8.7 and 28.8, platelet 91,000. PT/PTT 12 and 34.7. Sodium 139, potassium 4.5, chloride 96, CO2 of 34, anion gap 14, BUN 30, creatinine 8.5, GFR 6, glucose 86, calcium 8.1, triglyceride 348, cholesterol 153, LDL 49. The patient underwent cardiac catheterization. The patient had an EKG done ordered by Dr. Tran, which was reviewed. IMPRESSION AND PLAN: 1. Status post cardiac catheterization and left ventriculogram. 2. Diffusely hypokinetic left ventricle with ejection fraction of 40-45%. 3. Diffuse right coronary artery atherosclerosis. 4. Left main coronary artery intimal irregularities. 5. Diffuse atherosclerosis of the left anterior descending with patent stent in the proximal and midportion of the left anterior descending. 6. 50% stenosis of the midportion of the left anterior descending. 7. Patent stent of the left circumflex and obtuse marginal branches. 8. Patent stents in the left anterior descending artery and left circumflex artery. 9. Questionable prolonged QT. 10. Hypertension. 11. Pancytopenia, leukopenia, anemia, thrombocytopenia. 12. End-stage renal disease, hemodialysis dependent. 13. Hypertriglyceridemia. 14. History of pneumonia. 15. History of advanced acquired immune deficiency syndrome and human immunodeficiency virus is with CD-4 lymphopenia. 16. History of hyperlipidemia. 17. History of hypovitaminosis D. 18. History of hypothyroidism. 19. History of vitamin B12 deficiency. 20. History of hypertriglyceridemia. 21. History of constipation. Plan at this time, the patient is to be admitted to telemetry as per Cardiology recommendation. The patient has also been requested Nephrology consultation. The patient has been ordered transfusion of PRBC on dialysis 1 unit. The patient has been ordered Mucomyst nebulizer every 6 hours, hydroxyzine 25 twice a day p.r.n., Colace 100 three times a day, Prezista 150 at bedtime, Drisdol 50,000 weekly, Ecotrin 81 mg daily, folic acid 1 mg daily, Lipitor 40 mg daily. The patient is resumed on Lopressor 50 twice a day, Lovaza 1 g twice a day, Mepron 750 twice a day, MiraLax 17 g twice a day, Norvir 100 mg daily, PhosLo 1334. The patient will be resumed on a proton pump inhibitor, Synthroid 25 mcg, Tylenol p.r.n. for fever and pain, Xopenex nebulizer every 6 hours. The patient is resumed on abacavir 300 twice a day, Zofran 4 IV every 4 p.r.n. Cardiology consultation, Nephrology consultation have been requested. The patient's further management will be dependent upon the patient's clinical condition, hemodynamic status and as per the patient response to therapeutic intervention, as per the patient's diagnostic test results and as per recommendation by all the physicians involved in the care of the patient. Dictated and electronically signed, not read. Ranjith Rubalcava MD
[2018-01-14] MEDS: Levalbuterol 0.63 MG/3 ML Inhal Soln UD IH SCH ×4 (02:23→20:15)
[2018-01-14] MEDS: Acetylcysteine 20% Inhal Soln (4ml) IH SCH ×4 (02:23→20:15)
[2018-01-14] MEDS ORDERED: Sodium Chloride 0.9% 250 ML IV STA (04:06)
--- NOTE | 2018-01-14 04:15 | CP.PCM.PN ---
Subjective - Date & Time of Evaluation Date of Evaluation: 01/14/18 Time of Evaluation: 04:05 - Subjective Subjective: Patient's BP continues to drop, patient was asked to sign consent for central line ( femoral or IJ or subclavian), however patient refused to sign the consent , refused to give a clear reason why she doesn't want to sign the consent. Patient was a&ox3, coherent and speaking in full sentences. Patient was explained about the importance of allowing us to insert the central line, and refusing will result in BP to drop further leading to CVA, AR, cardiac arrest and . Despite all the warning patient continue to refuse. Patient's nurse, Gaby attempted to convince the patient with no avail. Instead patient was asking for narcotics, I explained to the patient that her BP was critically low and cannot receive narcotics. Will give another 250 cc bolus and continue to observe. Objective - Vital Signs/Intake and Output Vital Signs (last 24 hours): Temp Pulse Resp BP Pulse Ox 101.9 F H 88 24 80/36 L 98 01/13/18 15:31 01/14/18 01:10 01/14/18 01:10 01/14/18 01:00 01/14/18 01:10 - Medications Medications: Current Medications Abacavir Sulfate (Ziagen) 300 mg PO BID DOUGLAS PRN Reason: Protocol Last Admin: 01/13/18 17:15 Dose: Not Given Acetaminophen (Tylenol 325mg Tab) 650 mg PO Q6 PRN PRN Reason: TEMP>=99.5F Last Admin: 01/13/18 15:32 Dose: 650 mg Acetaminophen (Tylenol 650 Mg Supp) 650 mg RC Q6H PRN PRN Reason: TEMP>=99.5F Acetaminophen (Tylenol 325mg Tab) 650 mg PO Q4H PRN PRN Reason: Fever >100.4 F Acetylcysteine (Acetylcysteine 20%) 4 ml IH [id number] [facility] Last Admin: 01/14/18 02:23 Dose: Not Given Aspirin (Ecotrin) 81 mg PO DAILY [facility] Last Admin: 01/13/18 17:13 Dose: Not Given Atorvastatin Calcium (Lipitor) 40 mg PO DIN [facility] Atovaquone (Mepron) 750 mg PO BID DOUGLAS PRN Reason: Protocol Last Admin: 01/13/18 17:13 Dose: Not Given Calcium Acetate (Phoslo) 1,334 mg PO TID [facility] Last Admin: 01/13/18 17:14 Dose: Not Given Docusate Sodium (Colace) 100 mg PO TID [facility] Last Admin: 01/13/18 17:12 Dose: Not Given Ergocalciferol (Drisdol 50,000 Intl Units Cap) 1 cap PO Q7D [facility] Folic Acid (Folic Acid) 1 mg PO DAILY [facility] Hydroxyzine HCl (Atarax) 25 mg PO BID PRN PRN Reason: Anxiety Sodium Chloride (Sodium Chloride 0.9%) 1,000 mls @ 10 mls/hr IV .Q24H [facility] Last Admin: 01/13/18 11:48 Dose: 10 mls/hr Acetaminophen (Ofirmev) 1,000 mg in 100 mls @ 400 mls/hr IVPB Q8 [facility] Stop: 01/15/18 22:01 Last Admin: 01/13/18 21:57 Dose: 400 mls/hr Piperacillin Sod/Tazobactam Sod (Zosyn 2.25 Gm In 0.9% 100 Ml) 2.25 gm in 100 mls @ 100 mls/hr IVPB Q8 [facility] PRN Reason: Protocol Stop: 01/14/18 14:59 Sodium Chloride (Sodium Chloride 0.9%) 250 mls @ 999 mls/hr IV .Q16M [facility] Stop: 01/14/18 04:21 Levalbuterol HCl (Xopenex) 0.63 mg IH [id number] [facility] Last Admin: 01/14/18 02:23 Dose: Not Given Levothyroxine Sodium (Synthroid) 25 mcg PO 0600 [facility] Metoclopramide HCl (Reglan) 5 mg IVP Q6H [facility] Last Admin: 01/13/18 20:35 Dose: 5 mg Midodrine (Proamatine) 5 mg PO TID [facility] Last Admin: 01/13/18 21:30 Dose: 5 mg Multivitamins (Thera Tab) 1 tab PO DAILY [facility] Non-Formulary Medication (Darunavir Ethanolate [Prezista]) 150 mg PO HS [facility] Last Admin: 01/13/18 21:48 Dose: Not Given Ktuac-5-Secu Ethyl Esters (Lovaza) 1 gm PO BID [facility] Last Admin: 01/13/18 17:13 Dose: Not Given Ondansetron HCl (Zofran Inj) 4 mg IVP Q4H PRN PRN Reason: Nausea/Vomiting Pantoprazole Sodium (Protonix Inj) 40 mg IVP Q12 [facility] Last Admin: 01/13/18 22:54 Dose: 40 mg Polyethylene Glycol (Miralax) 17 gm PO BID [facility] Ritonavir (Norvir) 100 mg PO DAILY [facility] PRN Reason: Protocol - Labs Labs: 01/13/18 18:36 01/13/18 18:36 PT 12.0 SECONDS (9.4-12.5) 01/13/18 07:12 INR 1.04 01/13/18 07:12 APTT 34.7 Seconds (25.1-36.5) 01/13/18 07:12
--- NOTE | 2018-01-14 04:53 | CON ---
DATE: 01/13/2018 REASON FOR CONSULTATION: Need for dialysis post cardiac cath. HISTORY OF PRESENT ILLNESS: A 57-year-old lady known to me from outpatient hemodialysis, known to me from recent evaluation in [facility] when she was admitted for epigastric pain, abdominal pain. The patient was discharged yesterday. This morning, the patient was admitted for cardiac catheterization for preoperative evaluation. She is currently seen post cardiac cath. She is groggy. She is lying flat in bed. She does not appear to be in any kind of distress. Cardiac catheterization showed that the patient had patent stents in the LAD and circumflex, 50% stenosis in the midportion of the LAD, LV function 40% to 45%. PAST MEDICAL AND SURGICAL HISTORY: HIV/AIDS, CAD, PTCA and stent, hypertension, ESRD, Cony esophagitis, chronic pain, narcotic dependence, anemia, secondary hyperparathyroidism. FAMILY HISTORY: Hypertension. SOCIAL HISTORY: No smoking, no alcohol use, no IV drug abuse. ALLERGIES: MAVIS INHIBITORS. MEDICATIONS: List reviewed. REVIEW OF SYSTEMS: Unavailable as patient is still groggy after catheterization. PHYSICAL EXAMINATION: GENERAL: Middle-aged lady lying in bed. VITAL SIGNS: Blood pressure 118/70, respiratory rate 18, temperature 99.5. HEENT: Normocephalic, atraumatic, positive pallor. NECK: Supple, no JVD. LUNGS: Bilateral equal entry, bilateral equal expansion, no rales. CARDIAC: S1 and S2, regular rate and rhythm, no murmur, no rub. ABDOMEN: Distended, soft, mild tenderness. Bowel sounds present. EXTREMITIES: No lower extremity edema. LABORATORY DATA: WBC 4, hemoglobin 8.7, hematocrit 28.8, platelets 91. Sodium 139, potassium 4.5, chloride 96, CO2 34, BUN 30, creatinine 8.5, glucose 86, calcium 8.1, albumin 3.6, globulin 4.7. ASSESSMENT AND PLAN: 1. Coronary artery disease, percutaneous transluminal coronary angioplasty and stent, status post cardiac catheterization showing patent stents. 2. Severe anemia. 3. End-stage renal disease. 4. History of hypertension. 5. Fever. 6. Human immunodeficiency virus/acquired immunodeficiency syndrome. PLAN: 1. Dialysis today. 2. Transfuse 1 unit of blood on dialysis. 3. Continue outpatient medications. Meryl Shukla MD
[2018-01-14] MEDS: Levothyroxine 25 MCG TAB PO SCH (05:46)
[2018-01-14] MEDS ORDERED: Meropenem 500 MG in Sodium Chloride 0.9% 50 ML IVPB SCH (06:00)
[2018-01-14] MEDS: NOREPINEPHRINE BIT/0.9 % NACL 4 MG/250 ML BAG IV PRN (07:26)
[2018-01-14 07:34] LABS: EOS # 0.1 (0.0-0.7); EOS % 0.9 % (1.5-5.0); GRAN # 8.49 (1.4-6.5); GRAN % 95.6 % (50.0-68.0); HEMOGLOBIN 8.1 g/dL (12.0-16.0); LYMPH # 0.1 (1.2-3.4); LYMPH % 1.3 % (22.0-35.0); MEAN CELL VOLUME 100.8 fl (80.0-105.0); MEAN CORPUSCULAR HEMOGLOBIN 31.3 pg (25.0-35.0); MEAN PLATELET VOLUME 11.3 fl (7.0-11.0); MONO # 0.2 (0.1-0.6); MONO % 2.2 % (1.0-6.0); PLATELET COUNT 85 10^3/uL (120.0-450.0); RBC 2.59 10^6/uL (3.5-6.1); RED CELL DISTRIBUTION WIDTH 15.3 % (11.5-14.5); WHITE BLOOD COUNT 8.9 10^3/ul (4.5-11.0)
[2018-01-14 07:52] LABS: ALB/GLOB RATIO 0.7 (1.1-1.8); ALBUMIN 3.2 g/dL (3.0-4.8); BILIRUBIN,DIRECT 0.8 mg/dL (0.0-0.4); CALCIUM 7.3 mg/dL (8.4-10.5)
--- NOTE | 2018-01-14 08:11 | PN ---
DATE: 01/14/2018 CARDIOLOGY FOLLOWUP SUBJECTIVE: The patient is awake, alert without shortness of breath. OBJECTIVE: VITAL SIGNS: Blood pressure is in the 80s systolic, heart rates in the 80s. NECK: Negative JVD. LUNGS: Without rales. HEART: Reveal S1, S2. EXTREMITIES: Without edema. The right groin site is stable. DATA: Hemoglobin is 8.1 which is not significantly different than pre procedure. Potassium is 3.8. IMPRESSION: 1. Hypotension post dialysis. 2. Status post catheterization, which reveals an ischemic dilated cardiomyopathy with an ejection fraction in the 40s. 3. End-stage renal disease. 4. 50% mid left anterior descending artery stenosis. 5. History of human immunodeficiency virus. Given these findings, it is likely the patient's hypotension is volume depletion from dialysis as well as contrast dye. We will continue observation in the ICU for the next 24 hours. Derrick Tran MD
[2018-01-14] MEDS ORDERED: Piperacillin/Tazobact 2.25gm 2.25 GM/100 ML BAG IVPB SCH (09:00)
[2018-01-14 09:30] LABS: NEUTROPHIL 77 % (50.0-70.0)
[2018-01-14 09:31] LABS: ANISOCYTOSIS 1+; BAND 21 % (0-2); HYPOCHROMIA 2+; LYMPHOCYTE 1 % (22.0-35.0); MONOCYTE 1 % (1.0-6.0); PLATELET ESTIMATE LOW (NORMAL); POLYCHROMASIA SLIGHT
[2018-01-14 09:32] LABS: TOXIC GRANULATION SLIGHT
--- NOTE | 2018-01-14 10:05 | RAD ---
Date of service: 01/13/2018 HISTORY: BUSINESS PARTNER COMPARISON: 12/02/2017 FINDINGS: LUNGS: No active pulmonary disease. PLEURA: No significant pleural effusion identified, no pneumothorax apparent. CARDIOVASCULAR: Normal. OSSEOUS STRUCTURES: No significant abnormalities. VISUALIZED UPPER ABDOMEN: Normal. OTHER FINDINGS: Right internal jugular dialysis catheter IMPRESSION: No active disease.
--- NOTE | 2018-01-14 10:47 | RAD ---
Date of service: 01/13/2018 HISTORY: ABDOMINAL PAIN COMPARISON: 06/25/2017 FINDINGS: BOWEL: Normal. No obstruction. No free air. Mild fecal retention on the right side of the colon BONES: Normal. OTHER FINDINGS: None. IMPRESSION: No active disease.
[2018-01-14] MEDS: Atovaquone 750 mg/5 ml Susp UD PO SCH ×3 (11:16→18:32)
[2018-01-14] MEDS: POLYETHYLENE GLYCOL 3350 17 GM/Dose PACKET PO SCH ×3 (11:17→18:32)
[2018-01-14] MEDS: Multivitamin Therapeutic Tab PO SCH (11:18)
[2018-01-14] MEDS: Omega-3-Acid Ethyl Esters 1 GM Cap PO SCH ×3 (11:20→18:32)
--- NOTE | 2018-01-14 11:52 | CP.CCUPN ---
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 01/14/18 11:47 CCU Objective - Vital Signs / Intake & Output Vital Signs (Last 4 hours): Vital Signs Temp Pulse Pulse Pulse Resp BP BP 01/14/18 10:10 90 25 H 01/14/18 10:06 20 01/14/18 10:00 99 F 87 90 90 18 118/59 L 118/59 L 01/14/18 09:50 89 20 01/14/18 09:45 91 H 17 89/51 L 01/14/18 09:40 90 21 01/14/18 09:33 90 90/53 L 01/14/18 09:30 90 25 H 87/51 L 01/14/18 09:20 92 H 58 H 01/14/18 09:15 90 26 H 101/50 L 01/14/18 09:10 92 H 26 H 01/14/18 09:00 90 30 H 97/53 L 01/14/18 08:50 91 H 23 01/14/18 08:45 90 21 86/46 L 01/14/18 08:40 88 16 01/14/18 08:30 90 13 96/52 L 01/14/18 08:20 92 H 23 01/14/18 08:15 93 H 23 99/48 L 01/14/18 08:10 92 H 24 01/14/18 08:07 99 F 01/14/18 08:00 92 H 21 97/51 L 01/14/18 07:57 90 21 91/48 L 01/14/18 07:53 91 H 22 80/44 L 01/14/18 07:50 89 40 H Pulse Ox 01/14/18 10:10 100 01/14/18 10:06 99 01/14/18 10:00 100 01/14/18 09:50 100 01/14/18 09:45 100 01/14/18 09:40 100 01/14/18 09:33 100 01/14/18 09:30 100 01/14/18 09:20 100 01/14/18 09:15 100 01/14/18 09:10 100 01/14/18 09:00 100 01/14/18 08:50 98 01/14/18 08:45 98 01/14/18 08:40 98 01/14/18 08:30 97 01/14/18 08:20 97 01/14/18 08:15 97 01/14/18 08:10 97 01/14/18 08:07 01/14/18 08:00 97 01/14/18 07:57 100 01/14/18 07:53 100 01/14/18 07:50 100 Intake and Output (Last 8hrs): Intake & Output 01/13/18 01/14/18 01/14/18 22:59 06:59 14:59 Weight 55.792 kg - Physical Exam Head: Positive for: Atraumatic, Normocephalic Pupils: Positive for: PERRL Extroacular Muscles: Positive for: EOMI Conjunctiva: Positive for: Normal Mouth: Positive for: Moist Mucous Membranes Respiratory/Chest: Positive for: Clear to Auscultation, Good Air Exchange, Tender to Palpation. Negative for: Respiratory Distress, Accessory Muscle Use Cardiovascular: Positive for: Regular Rate and Rhythm, Normal S1, S2. Negative for: Murmurs Abdomen: Positive for: Tenderness (diffusely tender), Normal Bowel Sounds, Other (Patient verbalizes pain however does not appear to be guarding; abdomen is not rigid ). Negative for: Distention, Peritoneal Signs, Guarding Upper Extremity: Positive for: Normal Inspection. Negative for: Edema Lower Extremity: Positive for: Normal Inspection, NORMAL PULSES (2+ DP/TP BL ). Negative for: Edema Neurological: Positive for: GCS=15, CN II-XII Intact Skin: Positive for: Warm, Dry, Normal Color Psychiatric: Positive for: Alert, Oriented x 3 - Medications Active Medications: Active Medications Generic Name Dose Route Start Last Admin Trade Name Freq PRN Reason Stop Dose Admin Abacavir Sulfate 300 mg 01/13/18 11:30 01/13/18 17:15 Ziagen PO Not Given BID DOUGLAS Protocol Acetaminophen 650 mg 01/13/18 11:12 01/13/18 15:32 Tylenol 325mg Tab PO 650 mg Q6 PRN Administration TEMP>=99.5F Acetaminophen 650 mg 01/13/18 11:12 Tylenol 650 Mg Supp RC Q6H PRN TEMP>=99.5F Acetaminophen 650 mg 01/13/18 11:17 Tylenol 325mg Tab PO Q4H PRN Fever >100.4 F Acetylcysteine 4 ml 01/13/18 14:00 01/14/18 07:30 Acetylcysteine 20% IH 4 ml [id number] DOUGLAS Administration Aspirin 81 mg 01/13/18 11:15 01/14/18 11:18 Ecotrin PO 81 mg DAILY DOUGLAS Administration Atorvastatin Calcium 40 mg 01/13/18 17:00 Lipitor PO DIN [facility] Atovaquone 750 mg 01/13/18 11:30 01/14/18 11:47 Mepron PO Not Given BID [facility] Protocol Calcium Acetate 1,334 mg 01/13/18 14:00 01/13/18 17:14 Phoslo PO Not Given TID [facility] Docusate Sodium 100 mg 01/13/18 14:00 01/14/18 09:14 Colace PO Not Given TID [facility] Ergocalciferol 1 cap 01/13/18 11:30 Drisdol 50,000 Intl Units Cap PO Q7D DOUGLAS Folic Acid 1 mg 01/14/18 10:00 01/14/18 11:18 Folic Acid PO 1 mg DAILY DOUGLAS Administration Hydroxyzine HCl 25 mg 01/13/18 11:17 Atarax PO BID PRN Anxiety Sodium Chloride 1,000 mls @ 10 mls/hr 01/13/18 11:15 01/13/18 11:48 Sodium Chloride 0.9% IV 10 mls/hr .Q24H DOUGLAS Administration Acetaminophen 1,000 mg in 100 mls @ 400 mls/hr 01/13/18 22:00 01/14/18 05:46 Ofirmev IVPB 01/15/18 22:01 400 mls/hr Q8 DOUGLAS Administration NOREPINEPHRINE BIT/0.9 % NACL 4 mg in 250 mls @ 15 mls/hr 01/14/18 07:30 04/21 07:26 Levophed 4 Mg/ 250 Ml Ns Premixed IV 4 mcg/min .[id number] PRN 15 mls/hr TITRATE PER MD ORDER Administration Protocol 4 MCG/MIN Meropenem 500 mg/ Sodium 50 mls @ 100 mls/hr 01/14/18 10:26 Chloride IVPB 01/21/18 06:01 1800 [facility] Protocol Levalbuterol HCl 0.63 mg 01/13/18 14:00 01/14/18 07:31 Xopenex IH 0.63 mg [id number] DOUGLAS Administration Levothyroxine Sodium 25 mcg 01/14/18 06:00 01/14/18 05:46 Synthroid PO 25 mcg 0600 DOUGLAS Administration Metoclopramide HCl 5 mg 01/13/18 20:15 01/14/18 09:15 Reglan IVP Not Given Q6H DOUGLAS Midodrine 5 mg 01/13/18 21:00 01/14/18 11:17 Proamatine PO 5 mg TID DOUGLAS Administration Multivitamins 1 tab 01/13/18 11:30 01/14/18 11:18 Thera Tab PO 1 tab DAILY DOUGLAS Administration Darunavir Ethanolate 800 mg 01/14/18 06:32 [Prezista] 800 Mg ( PO Home Med) [facility] [id number] Ethyl Esters 1 gm 01/13/18 11:30 01/14/18 11:46 Lovaza PO Not Given BID [facility] Ondansetron HCl 4 mg 01/13/18 11:12 Zofran Inj IVP Q4H PRN Nausea/Vomiting Pantoprazole Sodium 40 mg 01/13/18 11:15 01/14/18 11:17 Protonix Inj IVP 40 mg Q12 DOUGLAS Administration Polyethylene Glycol 17 gm 01/13/18 18:00 01/14/18 11:38 Miralax PO Not Given BID [facility] Ritonavir 100 mg 01/13/18 11:30 Norvir PO DAILY [facility] Protocol - Patient Studies Lab Studies: Lab Studies 01/14/18 01/14/18 01/14/18 Range/Units 07:15 07:15 07:15 WBC (4.5-11.0) 10^3/ul RBC (3.5-6.1) 10^6/uL Hgb (12.0-16.0) g/dL Hct (36.0-48.0) % MCV (80.0-105.0) fl MCH (25.0-35.0) pg MCHC (31.0-37.0) g/dl RDW (11.5-14.5) % Plt Count (120.0-450.0) 10^3/uL Manual Plt Count 95 L (120-450) K/mm3 MPV (7.0-11.0) fl Gran % (50.0-68.0) % Lymph % (Auto) (22.0-35.0) % Fisher % (Auto) (1.0-6.0) % Eos % (Auto) (1.5-5.0) % Baso % (Auto) (0.0-3.0) % Gran # (1.4-6.5) Lymph # (Auto) (1.2-3.4) Fisher # (Auto) (0.1-0.6) Eos # (Auto) (0.0-0.7) Baso # (Auto) (0.0-2.0) K/mm3 Neutrophils % (Manual) (50.0-70.0) % Band Neutrophils % (0-2) % Lymphocytes % (Manual) (22.0-35.0) % Monocytes % (Manual) (1.0-6.0) % Toxic Granulation Platelet Evaluation (NORMAL) Polychromasia Hypochromasia Anisocytosis (manual) Macrocytosis (manual) pO2 (30-55) mm/Hg VBG pH (7.32-7.43) VBG pCO2 (40-60) VBG HCO3 (21-28) mmol/l VBG Total CO2 (22-28) mmol.L VBG O2 Sat (Calc) (40-65) % VBG Base Excess (0.0-2.0) mmol/L VBG Potassium (3.6-5.2) mmol/L Sodium 137 (132-148) mmol/L Chloride 101 (98-107) mmol/L Glucose (65-105) mg/dl Lactate (0.7-2.1) mmol/L FiO2 % Potassium 4.6 (3.6-5.0) mmol/L Carbon Dioxide 27 (21-33) mmol/L Anion Gap 14 (10-20) BUN 24 H (7-21) mg/dL Creatinine 7.2 H (0.7-1.2) mg/dl Est GFR ( Amer) 7 Est GFR (Non-Af Amer) 6 Random Glucose 105 (70-110) mg/dL Lactic Acid 1.0 (0.7-2.1) mmol/L Uric Acid 4.0 (2.5-6.2) mg/dL Calcium 7.3 L (8.4-10.5) mg/dL Phosphorus 4.9 H (2.5-4.5) mg/dL Magnesium 1.4 L (1.7-2.2) mg/dL Total Bilirubin 0.8 (0.2-1.3) mg/dL Direct Bilirubin 0.8 H (0.0-0.4) mg/dL AST 76 H (14-36) U/L ALT 27 (7-56) U/L Alkaline Phosphatase 103 (38-126) U/L Total Creatine Kinase (35-230) U/L Troponin I ng/mL Total Protein 7.6 (5.8-8.3) g/dL Albumin 3.2 (3.0-4.8) g/dL Globulin 4.4 gm/dL Albumin/Globulin Ratio 0.7 L (1.1-1.8) Venous Blood Potassium (3.6-5.2) mmol/L Blood Type Antibody Screen Crossmatch BBK History Checked 01/14/18 01/13/18 01/13/18 Range/Units 07:15 18:36 18:36 WBC 8.9 (4.5-11.0) 10^3/ul RBC 2.59 L (3.5-6.1) 10^6/uL Hgb 8.1 L (12.0-16.0) g/dL Hct 26.1 L (36.0-48.0) % MCV 100.8 (80.0-105.0) fl MCH 31.3 (25.0-35.0) pg MCHC 31.0 (31.0-37.0) g/dl RDW 15.3 H (11.5-14.5) % Plt Count 85 L (120.0-450.0) 10^3/uL Manual Plt Count (120-450) K/mm3 MPV 11.3 H (7.0-11.0) fl Gran % 95.6 H (50.0-68.0) % Lymph % (Auto) 1.3 L (22.0-35.0) % Fisher % (Auto) 2.2 (1.0-6.0) % Eos % (Auto) 0.9 L (1.5-5.0) % Baso % (Auto) 0.0 (0.0-3.0) % Gran # 8.49 H (1.4-6.5) Lymph # (Auto) 0.1 L (1.2-3.4) Fisher # (Auto) 0.2 (0.1-0.6) Eos # (Auto) 0.1 (0.0-0.7) Baso # (Auto) 0.00 (0.0-2.0) K/mm3 Neutrophils % (Manual) 77 H (50.0-70.0) % Band Neutrophils % 21 H* (0-2) % Lymphocytes % (Manual) 1 L (22.0-35.0) % Monocytes % (Manual) 1 (1.0-6.0) % Toxic Granulation Slight Platelet Evaluation Low (NORMAL) Polychromasia Slight Hypochromasia 2+ Anisocytosis (manual) 1+ Macrocytosis (manual) 1+ pO2 74 H (30-55) mm/Hg VBG pH 7.40 (7.32-7.43) VBG pCO2 43.0 (40-60) VBG HCO3 26.6 (21-28) mmol/l VBG Total CO2 27.9 (22-28) mmol.L VBG O2 Sat (Calc) 97.0 H (40-65) % VBG Base Excess 1.5 (0.0-2.0) mmol/L VBG Potassium 3.4 L (3.6-5.2) mmol/L Sodium 141.0 (132-148) mmol/L Chloride 108.0 H (98-107) mmol/L Glucose 78 (65-105) mg/dl Lactate 1.6 (0.7-2.1) mmol/L FiO2 21.0 % Potassium (3.6-5.0) mmol/L Carbon Dioxide (21-33) mmol/L Anion Gap (10-20) BUN (7-21) mg/dL Creatinine (0.7-1.2) mg/dl Est GFR ( Amer) Est GFR (Non-Af Amer) Random Glucose (70-110) mg/dL Lactic Acid (0.7-2.1) mmol/L Uric Acid (2.5-6.2) mg/dL Calcium (8.4-10.5) mg/dL Phosphorus (2.5-4.5) mg/dL Magnesium (1.7-2.2) mg/dL Total Bilirubin (0.2-1.3) mg/dL Direct Bilirubin (0.0-0.4) mg/dL AST (14-36) U/L ALT (7-56) U/L Alkaline Phosphatase (38-126) U/L Total Creatine Kinase 51 (35-230) U/L Troponin I 0.06 D ng/mL Total Protein (5.8-8.3) g/dL Albumin (3.0-4.8) g/dL Globulin gm/dL Albumin/Globulin Ratio (1.1-1.8) Venous Blood Potassium 3.4 L (3.6-5.2) mmol/L Blood Type Antibody Screen Crossmatch BBK History Checked 01/13/18 01/13/18 01/13/18 Range/Units 18:36 18:36 07:12 WBC 9.0 D (4.5-11.0) 10^3/ul RBC 2.77 L (3.5-6.1) 10^6/uL Hgb 8.5 L (12.0-16.0) g/dL Hct 28.0 L (36.0-48.0) % MCV 101.1 (80.0-105.0) fl MCH 30.7 (25.0-35.0) pg MCHC 30.4 L (31.0-37.0) g/dl RDW 15.3 H (11.5-14.5) % Plt Count 87 L (120.0-450.0) 10^3/uL Manual Plt Count (120-450) K/mm3 MPV 11.6 H (7.0-11.0) fl Gran % (50.0-68.0) % Lymph % (Auto) (22.0-35.0) % Fisher % (Auto) (1.0-6.0) % Eos % (Auto) (1.5-5.0) % Baso % (Auto) (0.0-3.0) % Gran # (1.4-6.5) Lymph # (Auto) (1.2-3.4) Fisher # (Auto) (0.1-0.6) Eos # (Auto) (0.0-0.7) Baso # (Auto) (0.0-2.0) K/mm3 Neutrophils % (Manual) (50.0-70.0) % Band Neutrophils % (0-2) % Lymphocytes % (Manual) (22.0-35.0) % Monocytes % (Manual) (1.0-6.0) % Toxic Granulation Platelet Evaluation (NORMAL) Polychromasia Hypochromasia Anisocytosis (manual) Macrocytosis (manual) pO2 (30-55) mm/Hg VBG pH (7.32-7.43) VBG pCO2 (40-60) VBG HCO3 (21-28) mmol/l VBG Total CO2 (22-28) mmol.L VBG O2 Sat (Calc) (40-65) % VBG Base Excess (0.0-2.0) mmol/L VBG Potassium (3.6-5.2) mmol/L Sodium 139 (132-148) mmol/L Chloride 102 (98-107) mmol/L Glucose (65-105) mg/dl Lactate (0.7-2.1) mmol/L FiO2 % Potassium 3.8 (3.6-5.0) mmol/L Carbon Dioxide 25 (21-33) mmol/L Anion Gap 15 (10-20) BUN 15 (7-21) mg/dL Creatinine 4.5 H (0.7-1.2) mg/dl Est GFR ( Amer) 12 Est GFR (Non-Af Amer) 10 Random Glucose 85 (70-110) mg/dL Lactic Acid (0.7-2.1) mmol/L Uric Acid (2.5-6.2) mg/dL Calcium 7.5 L (8.4-10.5) mg/dL Phosphorus (2.5-4.5) mg/dL Magnesium (1.7-2.2) mg/dL Total Bilirubin 0.8 (0.2-1.3) mg/dL Direct Bilirubin (0.0-0.4) mg/dL AST 70 H D (14-36) U/L ALT 30 (7-56) U/L Alkaline Phosphatase 104 (38-126) U/L Total Creatine Kinase (35-230) U/L Troponin I ng/mL Total Protein 8.2 (5.8-8.3) g/dL Albumin 3.6 (3.0-4.8) g/dL Globulin 4.7 gm/dL Albumin/Globulin Ratio 0.8 L (1.1-1.8) Venous Blood Potassium (3.6-5.2) mmol/L Blood Type A POSITIVE Antibody Screen Negative Crossmatch See Detail BBK History Checked Patient has bt Laboratory Results - last 24 hr 01/13/18 01/13/18 01/13/18 07:12 18:36 18:36 WBC 9.0 D RBC 2.77 L Hgb 8.5 L Hct 28.0 L MCV 101.1 MCH 30.7 MCHC 30.4 L RDW 15.3 H Plt Count 87 L Manual Plt Count MPV 11.6 H Gran % Lymph % (Auto) Fisher % (Auto) Eos % (Auto) Baso % (Auto) Gran # Lymph # (Auto) Fisher # (Auto) Eos # (Auto) Baso # (Auto) Neutrophils % (Manual) Band Neutrophils % Lymphocytes % (Manual) Monocytes % (Manual) Toxic Granulation Platelet Evaluation Polychromasia Hypochromasia Anisocytosis (manual) Macrocytosis (manual) pO2 VBG pH VBG pCO2 VBG HCO3 VBG Total CO2 VBG O2 Sat (Calc) VBG Base Excess VBG Potassium Sodium 139 Chloride 102 Glucose Lactate FiO2 Potassium 3.8 Carbon Dioxide 25 Anion Gap 15 BUN 15 Creatinine 4.5 H Est GFR ( Amer) 12 Est GFR (Non-Af Amer) 10 Random Glucose 85 Lactic Acid Uric Acid Calcium 7.5 L Phosphorus Magnesium Total Bilirubin 0.8 Direct Bilirubin AST 70 H D ALT 30 Alkaline Phosphatase 104 Total Creatine Kinase Troponin I Total Protein 8.2 Albumin 3.6 Globulin 4.7 Albumin/Globulin Ratio 0.8 L Venous Blood Potassium Blood Type A POSITIVE Antibody Screen Negative Crossmatch See Detail BBK History Checked Patient has bt 01/13/18 01/13/1818 18:36 18:36 07:15 WBC 8.9 RBC 2.59 L Hgb 8.1 L Hct 26.1 L MCV 100.8 MCH 31.3 MCHC 31.0 RDW 15.3 H Plt Count 85 L Manual Plt Count MPV 11.3 H Gran % 95.6 H Lymph % (Auto) 1.3 L Fisher % (Auto) 2.2 Eos % (Auto) 0.9 L Baso % (Auto) 0.0 Gran # 8.49 H Lymph # (Auto) 0.1 L Fisher # (Auto) 0.2 Eos # (Auto) 0.1 Baso # (Auto) 0.00 Neutrophils % (Manual) 77 H Band Neutrophils % 21 H* Lymphocytes % (Manual) 1 L Monocytes % (Manual) 1 Toxic Granulation Slight Platelet Evaluation Low Polychromasia Slight Hypochromasia 2+ Anisocytosis (manual) 1+ Macrocytosis (manual) 1+ pO2 74 H VBG pH 7.40 VBG pCO2 43.0 VBG HCO3 26.6 VBG Total CO2 27.9 VBG O2 Sat (Calc) 97.0 H VBG Base Excess 1.5 VBG Potassium 3.4 L Sodium 141.0 Chloride 108.0 H Glucose 78 Lactate 1.6 FiO2 21.0 Potassium Carbon Dioxide Anion Gap BUN Creatinine Est GFR ( Amer) Est GFR (Non-Af Amer) Random Glucose Lactic Acid Uric Acid Calcium Phosphorus Magnesium Total Bilirubin Direct Bilirubin AST ALT Alkaline Phosphatase Total Creatine Kinase 51 Troponin I 0.06 D Total Protein Albumin Globulin Albumin/Globulin Ratio Venous Blood Potassium 3.4 L Blood Type Antibody Screen Crossmatch BBK History Checked 01/14/18 01/14/18 01/14/18 07:15 07:15 07:15 WBC RBC Hgb Hct MCV MCH MCHC RDW Plt Count Manual Plt Count 95 L MPV Gran % Lymph % (Auto) Fisher % (Auto) Eos % (Auto) Baso % (Auto) Gran # Lymph # (Auto) Fisher # (Auto) Eos # (Auto) Baso # (Auto) Neutrophils % (Manual) Band Neutrophils % Lymphocytes % (Manual) Monocytes % (Manual) Toxic Granulation Platelet Evaluation Polychromasia Hypochromasia Anisocytosis (manual) Macrocytosis (manual) pO2 VBG pH VBG pCO2 VBG HCO3 VBG Total CO2 VBG O2 Sat (Calc) VBG Base Excess VBG Potassium Sodium 137 Chloride 101 Glucose Lactate FiO2 Potassium 4.6 Carbon Dioxide 27 Anion Gap 14 BUN 24 H Creatinine 7.2 H Est GFR ( Amer) 7 Est GFR (Non-Af Amer) 6 Random Glucose 105 Lactic Acid 1.0 Uric Acid 4.0 Calcium 7.3 L Phosphorus 4.9 H Magnesium 1.4 L Total Bilirubin 0.8 Direct Bilirubin 0.8 H AST 76 H ALT 27 Alkaline Phosphatase 103 Total Creatine Kinase Troponin I Total Protein 7.6 Albumin 3.2 Globulin 4.4 Albumin/Globulin Ratio 0.7 L Venous Blood Potassium Blood Type Antibody Screen Crossmatch BBK History Checked EKG/Cardiology Studies: Cardiology / EKG Studies 01/13/18 18:12 ELECTROCARDIOGRAM Stat Comment: 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 Neuro: -maintain normothermia -AAO x3, moving extremities spontaneously past midline Cardio: -Hypotension s/p HD; Febrile during RADIAL ARM SAW OPERATOR; Consider septic shock vs cardiogenic shock vs hypovolemic shock -Non-responsive to 750ml boluses -Patient has had historical pressures ranging in systolic 90s -Started on levophed 5mcg/min; Patient has had historical pressures ranging in systolic 90s -Could not maintain pressure >90 w/o levophed -Will aim to titrate to systolic BP in 90s w/ regular rate -C/w midodrine 5mg TID -Cardiac cath on 01/13 50% stenosis of the mid LAD, EF of 40-45% and patent stents in the LAD and circumflex arteries with recommendations of continued medical therapy and medication compliance -Cardiology Following, Dr. Tran Lungs: -SaO2 >90% -supplementary O2 PRN -xopenex q6 -CXR shows no acute disease Renal: -HD this AM 0.5 L removed -HD yesterday 1.5L removed -Maintain euvolemia -avoid nephrotoxic agents, hypochloremia -replace electrolytes as needed -CTAP - atrophic kidneys -HD MWF -Nephro on consult, Dr. Shukla Heme: Hb 8.1 Will obtain f/u CBC/CMP post HD 1U Crossmatch ready; Will transfuse if patient drops below 7 Endo: -maintain euglycemia -synthroid 25mcg ID: -WBC stable this AM from yesterday; 8.9 -Febrile at RADIAL ARM SAW OPERATOR, Overnight, and Throughout day -Lactic acid is 1.6 WNL; Will repeat lactic acid this afternoon -IV tylenol prn -Vanc/Zosyn DCd -Merem started -blood culture pending -CRP elevated -CTAP Unremarkable -continue home HIV therapy. Ritonavir, abacavir, mepron, darunavir -ID on consult, Dr. Pedro GI: -renal diet -hepatitis B panel pending -abdominal xray pending -reglan 5mg IVP q6 -GI prophylaxis with protonix 40mg IVP q12 -GI on consult, Dr. Snider Patient was discussed, seen, and examined at bedside w/ attending physician Dr. 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 Operator - Pager [phone] - Date & Time Date: 01/14/18 Time: 17:09 <Ligia Bustos - Last Filed: 01/14/18 17:58> CCU Objective - Vital Signs / Intake & Output Vital Signs (Last 4 hours): Vital Signs Pulse Resp BP Pulse Ox 01/14/18 17:20 85 13 100 01/14/18 17:10 88 19 100 01/14/18 17:00 89 20 87/45 L 99 01/14/18 16:51 90 19 84/43 L 100 01/14/18 16:50 90 20 100 01/14/18 16:40 92 H 12 100 01/14/18 16:31 93 H 17 80/38 L 100 01/14/18 16:30 93 H 21 100 01/14/18 16:29 93 H 81/38 L 100 01/14/18 16:25 97 H 23 79/39 L 100 01/14/18 16:20 96 H 16 87/50 L 100 01/14/18 16:17 95 H 32 H 98 01/14/18 15:50 103 H 100 01/14/18 15:40 103 H 21 99 01/14/18 15:30 100 H 31 H 98 01/14/18 15:20 102 H 21 99 01/14/18 15:10 106 H 28 H 96 01/14/18 15:00 106 H 20 93/41 L 96 01/14/18 14:50 108 H 25 H 97 01/14/18 14:40 109 H 44 H 100 01/14/18 14:30 110 H 88 H 99 01/14/18 14:20 111 H 16 100 01/14/18 14:10 111 H 14 100 01/14/18 14:00 114 H 16 94/45 L 99 Intake and Output (Last 8hrs): Intake & Output 01/14/18 01/14/18 01/14/18 06:59 14:59 22:59 Weight 123 lb - Medications Active Medications: Active Medications Generic Name Dose Route Start Last Admin Trade Name Freq PRN Reason Stop Dose Admin Abacavir Sulfate 300 mg 01/13/18 11:30 01/14/18 11:21 Ziagen PO Not Given BID [facility] Protocol Acetaminophen 650 mg 01/13/18 11:12 01/13/18 15:32 Tylenol 325mg Tab PO 650 mg Q6 PRN Administration TEMP>=99.5F Acetaminophen 650 mg 01/13/18 11:12 Tylenol 650 Mg Supp RC Q6H PRN TEMP>=99.5F Acetaminophen 650 mg 01/13/18 11:17 Tylenol 325mg Tab PO Q4H PRN Fever >100.4 F Acetylcysteine 4 ml 01/13/18 14:00 01/14/18 13:08 Acetylcysteine 20% IH Not Given [id number] [facility] Aspirin 81 mg 01/13/18 11:15 01/14/18 11:18 Ecotrin PO 81 mg DAILY DOUGLAS Administration Atorvastatin Calcium 40 mg 01/13/18 17:00 Lipitor PO DIN [facility] Atovaquone 750 mg 01/13/18 11:30 01/14/18 11:47 Mepron PO Not Given BID [facility] Protocol Calcium Acetate 1,334 mg 01/13/18 14:00 01/14/18 14:03 Phoslo PO 1,334 mg TID [facility] Administration Docusate Sodium 100 mg 01/13/18 14:00 01/14/18 14:20 Colace PO Not Given TID [facility] Ergocalciferol 1 cap 01/13/18 11:30 Drisdol 50,000 Intl Units Cap PO Q7D [facility] Folic Acid 1 mg 01/14/18 10:00 01/14/18 11:18 Folic Acid PO 1 mg DAILY DOUGLAS Administration Hydroxyzine HCl 25 mg 01/13/18 11:17 Atarax PO BID PRN Anxiety Sodium Chloride 1,000 mls @ 10 mls/hr 01/13/18 11:15 01/14/18 14:11 Sodium Chloride 0.9% IV 10 mls/hr .Q24H DOUGLAS Administration Acetaminophen 1,000 mg in 100 mls @ 400 mls/hr 01/13/18 22:00 01/14/18 14:03 Ofirmev IVPB 01/15/18 22:01 400 mls/hr Q8 DOUGLAS Administration NOREPINEPHRINE BIT/0.9 % NACL 4 mg in 250 mls @ 15 mls/hr 01/14/18 07:30 04/21 07:26 Levophed 4 Mg/ 250 Ml Ns Premixed IV 4 mcg/min .[id number] PRN 15 mls/hr TITRATE PER MD ORDER Administration Protocol 4 MCG/MIN Meropenem 500 mg/ Sodium 50 mls @ 100 mls/hr 01/14/18 10:26 Chloride IVPB 01/21/18 06:01 1800 DOUGLAS Protocol Lamivudine 150 mg 01/16/18 10:00 Epivir PO MWF [facility] Protocol Levalbuterol HCl 0.63 mg 01/13/18 14:00 01/14/18 13:08 Xopenex IH 0.63 mg [id number] DOUGLAS Administration Levothyroxine Sodium 25 mcg 01/14/18 06:00 01/14/18 05:46 Synthroid PO 25 mcg 0600 DOUGLAS Administration Metoclopramide HCl 5 mg 01/13/18 20:15 01/14/18 14:03 Reglan IVP 5 mg Q6H DOUGLAS Administration Midodrine 5 mg 01/13/18 21:00 01/14/18 14:08 Proamatine PO 5 mg TID DOUGLAS Administration Morphine Sulfate 15 mg 01/14/18 13:45 01/14/18 14:06 Morphine Extended Release Tab PO 15 mg Q12 DOUGLAS Administration Multivitamins 1 tab 01/13/18 11:30 01/14/18 11:18 Thera Tab PO 1 tab DAILY DOUGLAS Administration Darunavir Ethanolate 800 mg 01/14/18 06:32 [Prezista] 800 Mg ( PO Home Med) HS DOUGLAS [id number] Ethyl Esters 1 gm 01/13/18 11:30 01/14/18 11:46 Lovaza PO Not Given BID [facility] Ondansetron HCl 4 mg 01/13/18 11:12 Zofran Inj IVP Q4H PRN Nausea/Vomiting Pantoprazole Sodium 40 mg 01/13/18 11:15 01/14/18 11:17 Protonix Inj IVP 40 mg Q12 DOUGLAS Administration Polyethylene Glycol 17 gm 01/13/18 18:00 01/14/18 11:38 Miralax PO Not Given BID [facility] Ritonavir 100 mg 01/14/18 22:00 Norvir PO HS [facility] Protocol - Patient Studies Lab Studies: Lab Studies 01/14/18 01/14/18 01/14/18 Range/Units 16:39 16:39 16:39 WBC 6.1 D (4.5-11.0) 10^3/ul RBC 2.78 L (3.5-6.1) 10^6/uL Hgb 8.7 L (12.0-16.0) g/dL Hct 28.3 L (36.0-48.0) % MCV 101.8 (80.0-105.0) fl MCH 31.3 (25.0-35.0) pg MCHC 30.7 L (31.0-37.0) g/dl RDW 15.3 H (11.5-14.5) % Plt Count 83 L (120.0-450.0) 10^3/uL Manual Plt Count (120-450) K/mm3 MPV 11.7 H (7.0-11.0) fl Gran % 88.9 H (50.0-68.0) % Lymph % (Auto) 3.5 L (22.0-35.0) % Fisher % (Auto) 5.8 (1.0-6.0) % Eos % (Auto) 1.6 (1.5-5.0) % Baso % (Auto) 0.2 (0.0-3.0) % Gran # 5.41 (1.4-6.5) Lymph # (Auto) 0.2 L (1.2-3.4) Fisher # (Auto) 0.4 (0.1-0.6) Eos # (Auto) 0.1 (0.0-0.7) Baso # (Auto) 0.01 (0.0-2.0) K/mm3 Neutrophils % (Manual) (50.0-70.0) % Band Neutrophils % (0-2) % Lymphocytes % (Manual) (22.0-35.0) % Monocytes % (Manual) (1.0-6.0) % Toxic Granulation Platelet Evaluation (NORMAL) Polychromasia Hypochromasia Anisocytosis (manual) Macrocytosis (manual) pO2 49 (30-55) mm/Hg VBG pH 7.46 H (7.32-7.43) VBG pCO2 44.0 (40-60) VBG HCO3 31.3 H (21-28) mmol/l VBG Total CO2 32.7 H (22-28) mmol.L VBG O2 Sat (Calc) 87.8 H (40-65) % VBG Base Excess 6.6 H (0.0-2.0) mmol/L VBG Potassium 3.8 (3.6-5.2) mmol/L Sodium 138.0 139 (132-148) mmol/L Chloride 103.0 99 (98-107) mmol/L Glucose 115 H (65-105) mg/dl Lactate 1.9 (0.7-2.1) mmol/L FiO2 21.0 % Potassium 4.1 (3.6-5.0) mmol/L Carbon Dioxide 29 (21-33) mmol/L Anion Gap 14 (10-20) BUN 15 (7-21) mg/dL Creatinine 3.8 H (0.7-1.2) mg/dl Est GFR ( Amer) 15 Est GFR (Non-Af Amer) 12 Random Glucose 114 H (70-110) mg/dL Lactic Acid (0.7-2.1) mmol/L Uric Acid (2.5-6.2) mg/dL Calcium 7.9 L (8.4-10.5) mg/dL Phosphorus 4.1 (2.5-4.5) mg/dL Magnesium 1.7 (1.7-2.2) mg/dL Total Bilirubin 0.9 (0.2-1.3) mg/dL Direct Bilirubin (0.0-0.4) mg/dL AST 101 H D (14-36) U/L ALT 36 (7-56) U/L Alkaline Phosphatase 104 (38-126) U/L Total Creatine Kinase (35-230) U/L Troponin I ng/mL C-React Prot High Sens (1.00-3.00) mg/L Total Protein 8.1 (5.8-8.3) g/dL Albumin 3.5 (3.0-4.8) g/dL Globulin 4.6 gm/dL Albumin/Globulin Ratio 0.7 L (1.1-1.8) Procalcitonin (0.19-0.49) NG/ML Venous Blood Potassium 3.8 (3.6-5.2) mmol/L Hep Bs Antigen (NEGATIVE) Hep Bs Antibody (NEGATIVE) Hep B Core IgM Ab (NEGATIVE) 01/14/18 01/14/18 01/14/18 Range/Units 07:15 07:15 07:15 WBC (4.5-11.0) 10^3/ul RBC (3.5-6.1) 10^6/uL Hgb (12.0-16.0) g/dL Hct (36.0-48.0) % MCV (80.0-105.0) fl MCH (25.0-35.0) pg MCHC (31.0-37.0) g/dl RDW (11.5-14.5) % Plt Count (120.0-450.0) 10^3/uL Manual Plt Count 95 L (120-450) K/mm3 MPV (7.0-11.0) fl Gran % (50.0-68.0) % Lymph % (Auto) (22.0-35.0) % Fisher % (Auto) (1.0-6.0) % Eos % (Auto) (1.5-5.0) % Baso % (Auto) (0.0-3.0) % Gran # (1.4-6.5) Lymph # (Auto) (1.2-3.4) Fisher # (Auto) (0.1-0.6) Eos # (Auto) (0.0-0.7) Baso # (Auto) (0.0-2.0) K/mm3 Neutrophils % (Manual) (50.0-70.0) % Band Neutrophils % (0-2) % Lymphocytes % (Manual) (22.0-35.0) % Monocytes % (Manual) (1.0-6.0) % Toxic Granulation Platelet Evaluation (NORMAL) Polychromasia Hypochromasia Anisocytosis (manual) Macrocytosis (manual) pO2 (30-55) mm/Hg VBG pH (7.32-7.43) VBG pCO2 (40-60) VBG HCO3 (21-28) mmol/l VBG Total CO2 (22-28) mmol.L VBG O2 Sat (Calc) (40-65) % VBG Base Excess (0.0-2.0) mmol/L VBG Potassium (3.6-5.2) mmol/L Sodium 137 (132-148) mmol/L Chloride 101 (98-107) mmol/L Glucose (65-105) mg/dl Lactate (0.7-2.1) mmol/L FiO2 % Potassium 4.6 (3.6-5.0) mmol/L Carbon Dioxide 27 (21-33) mmol/L Anion Gap 14 (10-20) BUN 24 H (7-21) mg/dL Creatinine 7.2 H (0.7-1.2) mg/dl Est GFR ( Amer) 7 Est GFR (Non-Af Amer) 6 Random Glucose 105 (70-110) mg/dL Lactic Acid 1.0 (0.7-2.1) mmol/L Uric Acid 4.0 (2.5-6.2) mg/dL Calcium 7.3 L (8.4-10.5) mg/dL Phosphorus 4.9 H (2.5-4.5) mg/dL Magnesium 1.4 L (1.7-2.2) mg/dL Total Bilirubin 0.8 (0.2-1.3) mg/dL Direct Bilirubin 0.8 H (0.0-0.4) mg/dL AST 76 H (14-36) U/L ALT 27 (7-56) U/L Alkaline Phosphatase 103 (38-126) U/L Total Creatine Kinase (35-230) U/L Troponin I ng/mL C-React Prot High Sens (1.00-3.00) mg/L Total Protein 7.6 (5.8-8.3) g/dL Albumin 3.2 (3.0-4.8) g/dL Globulin 4.4 gm/dL Albumin/Globulin Ratio 0.7 L (1.1-1.8) Procalcitonin (0.19-0.49) NG/ML Venous Blood Potassium (3.6-5.2) mmol/L Hep Bs Antigen (NEGATIVE) Hep Bs Antibody (NEGATIVE) Hep B Core IgM Ab (NEGATIVE) 01/14/18 01/14/18 01/14/18 Range/Units 07:15 07:15 07:15 WBC 8.9 (4.5-11.0) 10^3/ul RBC 2.59 L (3.5-6.1) 10^6/uL Hgb 8.1 L (12.0-16.0) g/dL Hct 26.1 L (36.0-48.0) % MCV 100.8 (80.0-105.0) fl MCH 31.3 (25.0-35.0) pg MCHC 31.0 (31.0-37.0) g/dl RDW 15.3 H (11.5-14.5) % Plt Count 85 L (120.0-450.0) 10^3/uL Manual Plt Count (120-450) K/mm3 MPV 11.3 H (7.0-11.0) fl Gran % 95.6 H (50.0-68.0) % Lymph % (Auto) 1.3 L (22.0-35.0) % Fisher % (Auto) 2.2 (1.0-6.0) % Eos % (Auto) 0.9 L (1.5-5.0) % Baso % (Auto) 0.0 (0.0-3.0) % Gran # 8.49 H (1.4-6.5) Lymph # (Auto) 0.1 L (1.2-3.4) Fisher # (Auto) 0.2 (0.1-0.6) Eos # (Auto) 0.1 (0.0-0.7) Baso # (Auto) 0.00 (0.0-2.0) K/mm3 Neutrophils % (Manual) 77 H (50.0-70.0) % Band Neutrophils % 21 H* (0-2) % Lymphocytes % (Manual) 1 L (22.0-35.0) % Monocytes % (Manual) 1 (1.0-6.0) % Toxic Granulation Slight Platelet Evaluation Low (NORMAL) Polychromasia Slight Hypochromasia 2+ Anisocytosis (manual) 1+ Macrocytosis (manual) 1+ pO2 (30-55) mm/Hg VBG pH (7.32-7.43) VBG pCO2 (40-60) VBG HCO3 (21-28) mmol/l VBG Total CO2 (22-28) mmol.L VBG O2 Sat (Calc) (40-65) % VBG Base Excess (0.0-2.0) mmol/L VBG Potassium (3.6-5.2) mmol/L Sodium (132-148) mmol/L Chloride (98-107) mmol/L Glucose (65-105) mg/dl Lactate (0.7-2.1) mmol/L FiO2 % Potassium (3.6-5.0) mmol/L Carbon Dioxide (21-33) mmol/L Anion Gap (10-20) BUN (7-21) mg/dL Creatinine (0.7-1.2) mg/dl Est GFR ( Amer) Est GFR (Non-Af Amer) Random Glucose (70-110) mg/dL Lactic Acid (0.7-2.1) mmol/L Uric Acid (2.5-6.2) mg/dL Calcium (8.4-10.5) mg/dL Phosphorus (2.5-4.5) mg/dL Magnesium (1.7-2.2) mg/dL Total Bilirubin (0.2-1.3) mg/dL Direct Bilirubin (0.0-0.4) mg/dL AST (14-36) U/L ALT (7-56) U/L Alkaline Phosphatase (38-126) U/L Total Creatine Kinase (35-230) U/L Troponin I ng/mL C-React Prot High Sens > 15.00 H (1.00-3.00) mg/L Total Protein (5.8-8.3) g/dL Albumin (3.0-4.8) g/dL Globulin gm/dL Albumin/Globulin Ratio (1.1-1.8) Procalcitonin 11.20 H (0.19-0.49) NG/ML Venous Blood Potassium (3.6-5.2) mmol/L Hep Bs Antigen (NEGATIVE) Hep Bs Antibody (NEGATIVE) Hep B Core IgM Ab (NEGATIVE) 01/14/18 01/13/18 01/13/18 Range/Units 07:15 18:36 18:36 WBC (4.5-11.0) 10^3/ul RBC (3.5-6.1) 10^6/uL Hgb (12.0-16.0) g/dL Hct (36.0-48.0) % MCV (80.0-105.0) fl MCH (25.0-35.0) pg MCHC (31.0-37.0) g/dl RDW (11.5-14.5) % Plt Count (120.0-450.0) 10^3/uL Manual Plt Count (120-450) K/mm3 MPV (7.0-11.0) fl Gran % (50.0-68.0) % Lymph % (Auto) (22.0-35.0) % Fisher % (Auto) (1.0-6.0) % Eos % (Auto) (1.5-5.0) % Baso % (Auto) (0.0-3.0) % Gran # (1.4-6.5) Lymph # (Auto) (1.2-3.4) Fisher # (Auto) (0.1-0.6) Eos # (Auto) (0.0-0.7) Baso # (Auto) (0.0-2.0) K/mm3 Neutrophils % (Manual) (50.0-70.0) % Band Neutrophils % (0-2) % Lymphocytes % (Manual) (22.0-35.0) % Monocytes % (Manual) (1.0-6.0) % Toxic Granulation Platelet Evaluation (NORMAL) Polychromasia Hypochromasia Anisocytosis (manual) Macrocytosis (manual) pO2 74 H (30-55) mm/Hg VBG pH 7.40 (7.32-7.43) VBG pCO2 43.0 (40-60) VBG HCO3 26.6 (21-28) mmol/l VBG Total CO2 27.9 (22-28) mmol.L VBG O2 Sat (Calc) 97.0 H (40-65) % VBG Base Excess 1.5 (0.0-2.0) mmol/L VBG Potassium 3.4 L (3.6-5.2) mmol/L Sodium 141.0 (132-148) mmol/L Chloride 108.0 H (98-107) mmol/L Glucose 78 (65-105) mg/dl Lactate 1.6 (0.7-2.1) mmol/L FiO2 21.0 % Potassium (3.6-5.0) mmol/L Carbon Dioxide (21-33) mmol/L Anion Gap (10-20) BUN (7-21) mg/dL Creatinine (0.7-1.2) mg/dl Est GFR ( Amer) Est GFR (Non-Af Amer) Random Glucose (70-110) mg/dL Lactic Acid (0.7-2.1) mmol/L Uric Acid (2.5-6.2) mg/dL Calcium (8.4-10.5) mg/dL Phosphorus (2.5-4.5) mg/dL Magnesium (1.7-2.2) mg/dL Total Bilirubin (0.2-1.3) mg/dL Direct Bilirubin (0.0-0.4) mg/dL AST (14-36) U/L ALT (7-56) U/L Alkaline Phosphatase (38-126) U/L Total Creatine Kinase 51 (35-230) U/L Troponin I 0.06 D ng/mL C-React Prot High Sens (1.00-3.00) mg/L Total Protein (5.8-8.3) g/dL Albumin (3.0-4.8) g/dL Globulin gm/dL Albumin/Globulin Ratio (1.1-1.8) Procalcitonin (0.19-0.49) NG/ML Venous Blood Potassium 3.4 L (3.6-5.2) mmol/L Hep Bs Antigen (NEGATIVE) Hep Bs Antibody Indeterminate (NEGATIVE) Hep B Core IgM Ab (NEGATIVE) 01/13/18 01/13/18 Range/Units 18:36 18:36 WBC 9.0 D (4.5-11.0) 10^3/ul RBC 2.77 L (3.5-6.1) 10^6/uL Hgb 8.5 L (12.0-16.0) g/dL Hct 28.0 L (36.0-48.0) % MCV 101.1 (80.0-105.0) fl MCH 30.7 (25.0-35.0) pg MCHC 30.4 L (31.0-37.0) g/dl RDW 15.3 H (11.5-14.5) % Plt Count 87 L (120.0-450.0) 10^3/uL Manual Plt Count (120-450) K/mm3 MPV 11.6 H (7.0-11.0) fl Gran % (50.0-68.0) % Lymph % (Auto) (22.0-35.0) % Fisher % (Auto) (1.0-6.0) % Eos % (Auto) (1.5-5.0) % Baso % (Auto) (0.0-3.0) % Gran # (1.4-6.5) Lymph # (Auto) (1.2-3.4) Fisher # (Auto) (0.1-0.6) Eos # (Auto) (0.0-0.7) Baso # (Auto) (0.0-2.0) K/mm3 Neutrophils % (Manual) (50.0-70.0) % Band Neutrophils % (0-2) % Lymphocytes % (Manual) (22.0-35.0) % Monocytes % (Manual) (1.0-6.0) % Toxic Granulation Platelet Evaluation (NORMAL) Polychromasia Hypochromasia Anisocytosis (manual) Macrocytosis (manual) pO2 (30-55) mm/Hg VBG pH (7.32-7.43) VBG pCO2 (40-60) VBG HCO3 (21-28) mmol/l VBG Total CO2 (22-28) mmol.L VBG O2 Sat (Calc) (40-65) % VBG Base Excess (0.0-2.0) mmol/L VBG Potassium (3.6-5.2) mmol/L Sodium 139 (132-148) mmol/L Chloride 102 (98-107) mmol/L Glucose (65-105) mg/dl Lactate (0.7-2.1) mmol/L FiO2 % Potassium 3.8 (3.6-5.0) mmol/L Carbon Dioxide 25 (21-33) mmol/L Anion Gap 15 (10-20) BUN 15 (7-21) mg/dL Creatinine 4.5 H (0.7-1.2) mg/dl Est GFR ( Amer) 12 Est GFR (Non-Af Amer) 10 Random Glucose 85 (70-110) mg/dL Lactic Acid (0.7-2.1) mmol/L Uric Acid (2.5-6.2) mg/dL Calcium 7.5 L (8.4-10.5) mg/dL Phosphorus (2.5-4.5) mg/dL Magnesium (1.7-2.2) mg/dL Total Bilirubin 0.8 (0.2-1.3) mg/dL Direct Bilirubin (0.0-0.4) mg/dL AST 70 H D (14-36) U/L ALT 30 (7-56) U/L Alkaline Phosphatase 104 (38-126) U/L Total Creatine Kinase (35-230) U/L Troponin I ng/mL C-React Prot High Sens (1.00-3.00) mg/L Total Protein 8.2 (5.8-8.3) g/dL Albumin 3.6 (3.0-4.8) g/dL Globulin 4.7 gm/dL Albumin/Globulin Ratio 0.8 L (1.1-1.8) Procalcitonin (0.19-0.49) NG/ML Venous Blood Potassium (3.6-5.2) mmol/L Hep Bs Antigen Negative (NEGATIVE) Hep Bs Antibody (NEGATIVE) Hep B Core IgM Ab Negative (NEGATIVE) Laboratory Results - last 24 hr 01/13/18 01/13/18 01/13/18 18:36 18:36 18:36 WBC 9.0 D RBC 2.77 L Hgb 8.5 L Hct 28.0 L MCV 101.1 MCH 30.7 MCHC 30.4 L RDW 15.3 H Plt Count 87 L Manual Plt Count MPV 11.6 H Gran % Lymph % (Auto) Fisher % (Auto) Eos % (Auto) Baso % (Auto) Gran # Lymph # (Auto) Fisher # (Auto) Eos # (Auto) Baso # (Auto) Neutrophils % (Manual) Band Neutrophils % Lymphocytes % (Manual) Monocytes % (Manual) Toxic Granulation Platelet Evaluation Polychromasia Hypochromasia Anisocytosis (manual) Macrocytosis (manual) pO2 74 H VBG pH 7.40 VBG pCO2 43.0 VBG HCO3 26.6 VBG Total CO2 27.9 VBG O2 Sat (Calc) 97.0 H VBG Base Excess 1.5 VBG Potassium 3.4 L Sodium 139 141.0 Chloride 102 108.0 H Glucose 78 Lactate 1.6 FiO2 21.0 Potassium 3.8 Carbon Dioxide 25 Anion Gap 15 BUN 15 Creatinine 4.5 H Est GFR ( Amer) 12 Est GFR (Non-Af Amer) 10 Random Glucose 85 Lactic Acid Uric Acid Calcium 7.5 L Phosphorus Magnesium Total Bilirubin 0.8 Direct Bilirubin AST 70 H D ALT 30 Alkaline Phosphatase 104 Total Creatine Kinase Troponin I C-React Prot High Sens Total Protein 8.2 Albumin 3.6 Globulin 4.7 Albumin/Globulin Ratio 0.8 L Procalcitonin Venous Blood Potassium 3.4 L Hep Bs Antigen Negative Hep Bs Antibody Hep B Core IgM Ab Negative 01/13/18 01/14/18 01/14/18 18:36 07:15 07:15 WBC RBC Hgb Hct MCV MCH MCHC RDW Plt Count Manual Plt Count MPV Gran % Lymph % (Auto) Fisher % (Auto) Eos % (Auto) Baso % (Auto) Gran # Lymph # (Auto) Fisher # (Auto) Eos # (Auto) Baso # (Auto) Neutrophils % (Manual) Band Neutrophils % Lymphocytes % (Manual) Monocytes % (Manual) Toxic Granulation Platelet Evaluation Polychromasia Hypochromasia Anisocytosis (manual) Macrocytosis (manual) pO2 VBG pH VBG pCO2 VBG HCO3 VBG Total CO2 VBG O2 Sat (Calc) VBG Base Excess VBG Potassium Sodium Chloride Glucose Lactate FiO2 Potassium Carbon Dioxide Anion Gap BUN Creatinine Est GFR ( Amer) Est GFR (Non-Af Amer) Random Glucose Lactic Acid Uric Acid Calcium Phosphorus Magnesium Total Bilirubin Direct Bilirubin AST ALT Alkaline Phosphatase Total Creatine Kinase 51 Troponin I 0.06 D C-React Prot High Sens Total Protein Albumin Globulin Albumin/Globulin Ratio Procalcitonin 11.20 H Venous Blood Potassium Hep Bs Antigen Hep Bs Antibody Indeterminate Hep B Core IgM Ab 01/14/18 01/14/18 01/14/18 07:15 07:15 07:15 WBC 8.9 RBC 2.59 L Hgb 8.1 L Hct 26.1 L MCV 100.8 MCH 31.3 MCHC 31.0 RDW 15.3 H Plt Count 85 L Manual Plt Count MPV 11.3 H Gran % 95.6 H Lymph % (Auto) 1.3 L Fisher % (Auto) 2.2 Eos % (Auto) 0.9 L Baso % (Auto) 0.0 Gran # 8.49 H Lymph # (Auto) 0.1 L Fisher # (Auto) 0.2 Eos # (Auto) 0.1 Baso # (Auto) 0.00 Neutrophils % (Manual) 77 H Band Neutrophils % 21 H* Lymphocytes % (Manual) 1 L Monocytes % (Manual) 1 Toxic Granulation Slight Platelet Evaluation Low Polychromasia Slight Hypochromasia 2+ Anisocytosis (manual) 1+ Macrocytosis (manual) 1+ pO2 VBG pH VBG pCO2 VBG HCO3 VBG Total CO2 VBG O2 Sat (Calc) VBG Base Excess VBG Potassium Sodium 137 Chloride 101 Glucose Lactate FiO2 Potassium 4.6 Carbon Dioxide 27 Anion Gap 14 BUN 24 H Creatinine 7.2 H Est GFR ( Amer) 7 Est GFR (Non-Af Amer) 6 Random Glucose 105 Lactic Acid Uric Acid 4.0 Calcium 7.3 L Phosphorus 4.9 H Magnesium 1.4 L Total Bilirubin 0.8 Direct Bilirubin 0.8 H AST 76 H ALT 27 Alkaline Phosphatase 103 Total Creatine Kinase Troponin I C-React Prot High Sens > 15.00 H Total Protein 7.6 Albumin 3.2 Globulin 4.4 Albumin/Globulin Ratio 0.7 L Procalcitonin Venous Blood Potassium Hep Bs Antigen Hep Bs Antibody Hep B Core IgM Ab 01/14/18 01/14/18 01/14/18 07:15 07:15 16:39 WBC 6.1 D RBC 2.78 L Hgb 8.7 L Hct 28.3 L MCV 101.8 MCH 31.3 MCHC 30.7 L RDW 15.3 H Plt Count 83 L Manual Plt Count 95 L MPV 11.7 H Gran % 88.9 H Lymph % (Auto) 3.5 L Fisher % (Auto) 5.8 Eos % (Auto) 1.6 Baso % (Auto) 0.2 Gran # 5.41 Lymph # (Auto) 0.2 L Fisher # (Auto) 0.4 Eos # (Auto) 0.1 Baso # (Auto) 0.01 Neutrophils % (Manual) Band Neutrophils % Lymphocytes % (Manual) Monocytes % (Manual) Toxic Granulation Platelet Evaluation Polychromasia Hypochromasia Anisocytosis (manual) Macrocytosis (manual) pO2 VBG pH VBG pCO2 VBG HCO3 VBG Total CO2 VBG O2 Sat (Calc) VBG Base Excess VBG Potassium Sodium Chloride Glucose Lactate FiO2 Potassium Carbon Dioxide Anion Gap BUN Creatinine Est GFR ( Amer) Est GFR (Non-Af Amer) Random Glucose Lactic Acid 1.0 Uric Acid Calcium Phosphorus Magnesium Total Bilirubin Direct Bilirubin AST ALT Alkaline Phosphatase Total Creatine Kinase Troponin I C-React Prot High Sens Total Protein Albumin Globulin Albumin/Globulin Ratio Procalcitonin Venous Blood Potassium Hep Bs Antigen Hep Bs Antibody Hep B Core IgM Ab 01/14/18 01/14/18 16:39 16:39 WBC RBC Hgb Hct MCV MCH MCHC RDW Plt Count Manual Plt Count MPV Gran % Lymph % (Auto) Fisher % (Auto) Eos % (Auto) Baso % (Auto) Gran # Lymph # (Auto) Fisher # (Auto) Eos # (Auto) Baso # (Auto) Neutrophils % (Manual) Band Neutrophils % Lymphocytes % (Manual) Monocytes % (Manual) Toxic Granulation Platelet Evaluation Polychromasia Hypochromasia Anisocytosis (manual) Macrocytosis (manual) pO2 49 VBG pH 7.46 H VBG pCO2 44.0 VBG HCO3 31.3 H VBG Total CO2 32.7 H VBG O2 Sat (Calc) 87.8 H VBG Base Excess 6.6 H VBG Potassium 3.8 Sodium 139 138.0 Chloride 99 103.0 Glucose 115 H Lactate 1.9 FiO2 21.0 Potassium 4.1 Carbon Dioxide 29 Anion Gap 14 BUN 15 Creatinine 3.8 H Est GFR ( Amer) 15 Est GFR (Non-Af Amer) 12 Random Glucose 114 H Lactic Acid Uric Acid Calcium 7.9 L Phosphorus 4.1 Magnesium 1.7 Total Bilirubin 0.9 Direct Bilirubin AST 101 H D ALT 36 Alkaline Phosphatase 104 Total Creatine Kinase Troponin I C-React Prot High Sens Total Protein 8.1 Albumin 3.5 Globulin 4.6 Albumin/Globulin Ratio 0.7 L Procalcitonin Venous Blood Potassium 3.8 Hep Bs Antigen Hep Bs Antibody Hep B Core IgM Ab EKG/Cardiology Studies: Cardiology / EKG Studies 01/13/18 18:12 ELECTROCARDIOGRAM Stat Comment: 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 Case reviewed on round with housestaff. Agree with resident note above with the following additions/exceptions: 57F with CHF EF 40%, ESRD on HD on Fri/Fri/Fri, CAD with multiple stent placement in past, medication non-compliance, chronic anemia, secondary hyperparathyroidism, hypothyroidism and HIV ( CD4 of 79) admitted to ICU after hypotension during dialysis. She is also have low grade temps so sepsis is being worked up. She has received generous fluids back (1500 taken off yesterday with HD). She is on levophed. her goal should be SBP > 90 since she runs a low BP in at baseline. I am avoid dopamine because her HR is already around 100. cont midodrine hold metoprolol Sepsis is higher on the differential given her HIV/AIDS status. Abx merrerm, vanc zosyn empirically. Awaiting cultures. Cont HAART meds. ID on board. Plan for HD again today as per renal WIll cont to monitor in ICU as she may require pressors during HD Rest of care as noted above. Ligia Bustos MD [employer] Critical Care Time : 30mins
[2018-01-14 12:25] LABS: HEPATITIS B SURFACE AG Negative (NEGATIVE)
[2018-01-14 12:30] LABS: HEPATITIS B CORE AB NEGATIVE (NEGATIVE)
[2018-01-14] MEDS ORDERED: Morphine 15 mg SR Tab PO SCH (13:45)
[2018-01-14] MEDS: Sodium Chloride 0.9% 1,000 ML IV SCH (14:11)
--- NOTE | 2018-01-14 14:37 | CP.PCM.CON ---
History of Present Illness - History of Present Illness History of Present Illness: 57 year old female with PMH of HIV and AIDS with last CD4 count 163 in 2015 , VL detectable, chronic renal failure on hemodialysis, coronary artery disease , history of UTI, history of esophageal ulcer, erosive gastritis, HTN, S/P cholecystectomy came in to [facility] because of apparent fevers, generalized weakness and complaints of right flank and abdominal pain for the past 1-2 days. She was also noted to have hypotension and is now in the ICU for closer observation and more aggressive management. The patient is still complaining of pain in the abdomen, denies eating anything out of the ordinary, admits to intermittently taking her HIV meds, denies headache or dizziness, no dysphagia, no dysuria, no diarrhea, no hematuria, has some nausea but no vomiting. Infectious Diseases consult is requested to further evaluate and manage. Review of Systems - Review of Systems All systems: reviewed and no additional remarkable complaints except (as per HPI ) Past Patient History - Infectious Disease Hx of Infectious Diseases: None - Tetanus Immunizations Tetanus Immunization: Unknown - Past Medical History & Family History Past Medical History?: Yes - Past Social History Smoking Status: Former Smoker - CARDIAC Hx Pacemaker: No - PULMONARY Hx Chronic Obstructive Pulmonary Disease (COPD): No - NEUROLOGICAL Hx Paralysis: No - HEENT Hx HEENT Problems: No - RENAL Hx Renal Failure: Yes (ESRD/ on Hemo 3x/wk) - ENDOCRINE/METABOLIC Hx Hypothyroidism: Yes - HEMATOLOGICAL/ONCOLOGICAL Hx Blood Transfusions: Yes Hx Blood Transfusion Reaction: No - INTEGUMENTARY Hx Dermatological Problems: Yes (generalized body itch on and off) - MUSCULOSKELETAL/RHEUMATOLOGICAL Hx Musculoskeletal Disorders: Yes (CERVICAL DISC) - GASTROINTESTINAL Hx Gastrointestinal Disorders: Yes Hx Crohn's Disease: No Hx Gall Bladder Disease: Yes Hx Gastroesophageal Reflux: Yes Hx Pancreatitis: Yes HX Swallowing Problems: No - GENITOURINARY/GYNECOLOGICAL Hx Genitourinary Disorders: Yes Hx Sexually Transmitted Disorders: Yes (HIV/AIDS) Hx Urinary Tract Infection: Yes - PSYCHIATRIC Hx Emotional Abuse: No Hx Physical Abuse: No Hx Substance Use: Yes (Quit 25 years ago) - SURGICAL HISTORY Hx Surgeries: Yes (R CHEST HD CATH PLACEMENT;PTCA/STENTS X4;) - ANESTHESIA Hx Anesthesia Reactions: No Hx Malignant Hyperthermia: No Meds Allergies/Adverse Reactions: Allergies Allergy/AdvReac Type Severity Reaction Status Date / Time MAVIS Inhibitors Allergy Severe SWELLING Verified 01/07/18 12:20 - Medications Medications: Current Medications Abacavir Sulfate (Ziagen) 300 mg PO BID DOUGLAS PRN Reason: Protocol Last Admin: 01/13/18 17:15 Dose: Not Given Acetaminophen (Tylenol 325mg Tab) 650 mg PO Q6 PRN PRN Reason: TEMP>=99.5F Last Admin: 01/13/18 15:32 Dose: 650 mg Acetaminophen (Tylenol 650 Mg Supp) 650 mg RC Q6H PRN PRN Reason: TEMP>=99.5F Acetaminophen (Tylenol 325mg Tab) 650 mg PO Q4H PRN PRN Reason: Fever >100.4 F Acetylcysteine (Acetylcysteine 20%) 4 ml IH Q3VCCSU [facility] Last Admin: 01/14/18 02:23 Dose: Not Given Aspirin (Ecotrin) 81 mg PO DAILY [facility] Last Admin: 01/13/18 17:13 Dose: Not Given Atorvastatin Calcium (Lipitor) 40 mg PO DIN [facility] Atovaquone (Mepron) 750 mg PO BID DOGULAS PRN Reason: Protocol Last Admin: 01/13/18 17:13 Dose: Not Given Calcium Acetate (Phoslo) 1,334 mg PO TID [facility] Last Admin: 01/13/18 17:14 Dose: Not Given Docusate Sodium (Colace) 100 mg PO TID [facility] Last Admin: 01/13/18 17:12 Dose: Not Given Ergocalciferol (Drisdol 50,000 Intl Units Cap) 1 cap PO Q7D [facility] Folic Acid (Folic Acid) 1 mg PO DAILY [facility] Hydroxyzine HCl (Atarax) 25 mg PO BID PRN PRN Reason: Anxiety Sodium Chloride (Sodium Chloride 0.9%) 1,000 mls @ 10 mls/hr IV .Q24H [facility] Last Admin: 01/13/18 11:48 Dose: 10 mls/hr Acetaminophen (Ofirmev) 1,000 mg in 100 mls @ 400 mls/hr IVPB Q8 [facility] Stop: 01/15/18 22:01 Last Admin: 01/14/18 05:46 Dose: 400 mls/hr Meropenem 500 mg/ Sodium (Chloride) 50 mls @ 100 mls/hr IVPB Q12 DOUGLAS PRN Reason: Protocol Stop: 01/21/18 06:01 Levalbuterol HCl (Xopenex) 0.63 mg IH [id number] [facility] Last Admin: 01/14/18 02:23 Dose: Not Given Levothyroxine Sodium (Synthroid) 25 mcg PO 0600 [facility] Last Admin: 01/14/18 05:46 Dose: 25 mcg Metoclopramide HCl (Reglan) 5 mg IVP Q6H [facility] Last Admin: 01/14/18 02:30 Dose: 5 mg Midodrine (Proamatine) 5 mg PO TID [facility] Last Admin: 01/13/18 21:30 Dose: 5 mg Multivitamins (Thera Tab) 1 tab PO DAILY [facility] Darunavir Ethanolate [Prezista] 800 Mg ( Home Med) 800 mg PO HS [facility] [id number] Ethyl Esters (Lovaza) 1 gm PO BID [facility] Last Admin: 01/13/18 17:13 Dose: Not Given Ondansetron HCl (Zofran Inj) 4 mg IVP Q4H PRN PRN Reason: Nausea/Vomiting Pantoprazole Sodium (Protonix Inj) 40 mg IVP Q12 [facility] Last Admin: 01/13/18 22:54 Dose: 40 mg Polyethylene Glycol (Miralax) 17 gm PO BID [facility] Ritonavir (Norvir) 100 mg PO DAILY [facility] PRN Reason: Protocol Physical Exam - Constitutional Appears: Chronically Ill - Head Exam Head Exam: NORMAL INSPECTION - ENT Exam Additional comments: oral thrush not present - Neck Exam Neck exam: Negative for: Meningismus - Respiratory Exam Respiratory Exam: Decreased Breath Sounds - Cardiovascular Exam Cardiovascular Exam: +S1, +S2 - GI/Abdominal Exam GI & Abdominal Exam: Soft, Tenderness (mild, right sided). absent: Distended, Guarding, Rebound, Rigid - Back Exam Back exam: CVA tenderness (R) Results - Vital Signs Recent Vital Signs: Last Vital Signs Temp 97.8 F 01/14/18 00:11 Pulse 88 01/14/18 01:10 Resp 24 01/14/18 01:10 BP 80/36 L 01/14/18 01:00 Pulse Ox 98 01/14/18 01:10 - Labs Result Diagrams: 01/14/18 07:15 01/14/18 07:15 Labs: Laboratory Results - last 24 hr 01/13/18 01/13/18 01/13/18 07:12 07:12 07:12 WBC 4.1 L RBC 2.82 L Hgb 8.7 L Hct 28.8 L MCV 102.1 MCH 30.9 MCHC 30.2 L RDW 15.1 H Plt Count 91 L MPV 11.6 H Gran % 63.8 Lymph % (Auto) 20.3 L [place] % (Auto) 14.2 H Eos % (Auto) 1.5 Baso % (Auto) 0.2 Gran # 2.61 Lymph # (Auto) 0.8 L [place] # (Auto) 0.6 Eos # (Auto) 0.1 Baso # (Auto) 0.01 PT 12.0 INR 1.04 APTT 34.7 pO2 VBG pH VBG pCO2 VBG HCO3 VBG Total CO2 VBG O2 Sat (Calc) VBG Base Excess VBG Potassium Glucose Lactate FiO2 Sodium 139 Potassium 4.5 Chloride 96 L Carbon Dioxide 34 H Anion Gap 14 BUN 30 H Creatinine 8.5 H* Est GFR ( Amer) 6 Est GFR (Non-Af Amer) 5 Random Glucose 86 Calcium 8.1 L Total Bilirubin AST ALT Alkaline Phosphatase Total Creatine Kinase Troponin I Total Protein Albumin Globulin Albumin/Globulin Ratio Triglycerides 348 H Cholesterol 153 LDL Cholesterol Direct 49 HDL Cholesterol 34 Venous Blood Potassium Blood Type Antibody Screen Crossmatch BBK History Checked 01/13/18 01/13/18 01/13/18 07:12 18:36 18:36 WBC 9.0 D RBC 2.77 L Hgb 8.5 L Hct 28.0 L MCV 101.1 MCH 30.7 MCHC 30.4 L RDW 15.3 H Plt Count 87 L MPV 11.6 H Gran % Lymph % (Auto) [place] % (Auto) Eos % (Auto) Baso % (Auto) Gran # Lymph # (Auto) [place] # (Auto) Eos # (Auto) Baso # (Auto) PT INR APTT pO2 VBG pH VBG pCO2 VBG HCO3 VBG Total CO2 VBG O2 Sat (Calc) VBG Base Excess VBG Potassium Glucose Lactate FiO2 Sodium 139 Potassium 3.8 Chloride 102 Carbon Dioxide 25 Anion Gap 15 BUN 15 Creatinine 4.5 H Est GFR ( Amer) 12 Est GFR (Non-Af Amer) 10 Random Glucose 85 Calcium 7.5 L Total Bilirubin 0.8 AST 70 H D ALT 30 Alkaline Phosphatase 104 Total Creatine Kinase Troponin I Total Protein 8.2 Albumin 3.6 Globulin 4.7 Albumin/Globulin Ratio 0.8 L Triglycerides Cholesterol LDL Cholesterol Direct HDL Cholesterol Venous Blood Potassium Blood Type A POSITIVE Antibody Screen Negative Crossmatch See Detail BBK History Checked Patient has bt 01/13/18 01/13/18 18:36 18:36 WBC RBC Hgb Hct MCV MCH MCHC RDW Plt Count MPV Gran % Lymph % (Auto) [place] % (Auto) Eos % (Auto) Baso % (Auto) Gran # Lymph # (Auto) [place] # (Auto) Eos # (Auto) Baso # (Auto) PT INR APTT pO2 74 H VBG pH 7.40 VBG pCO2 43.0 VBG HCO3 26.6 VBG Total CO2 27.9 VBG O2 Sat (Calc) 97.0 H VBG Base Excess 1.5 VBG Potassium 3.4 L Glucose 78 Lactate 1.6 FiO2 21.0 Sodium 141.0 Potassium Chloride 108.0 H Carbon Dioxide Anion Gap BUN Creatinine Est GFR ( Amer) Est GFR (Non-Af Amer) Random Glucose Calcium Total Bilirubin AST ALT Alkaline Phosphatase Total Creatine Kinase 51 Troponin I 0.06 D Total Protein Albumin Globulin Albumin/Globulin Ratio Triglycerides Cholesterol LDL Cholesterol Direct HDL Cholesterol Venous Blood Potassium 3.4 L Blood Type Antibody Screen Crossmatch BBK History Checked Assessment & Plan - Assessment and Plan (Free Text) Plan: Assessment systemic inflammatory response syndrome, with hypotension, R/O severe sepsis due to intra-abdominal infection or UTI HIV and AIDS, non-compliant with ART, last CD4 count 79 in September 2017 history of severe sepsis due to HCAP R/O pneumocystis pneumonia history of acute pancreatitis related to hypertriglyceridemia S/P oral candidiasis history of Cony esophagitis with oral candidiasis HIV and AIDS, non-compliant with ART, last CD4 count 66 in august 2017 history of Cdiff associated diarrhea history of left upper lobe HCAP erosive gastritis HTN chronic renal failure on hemodialysis coronary artery disease history of UTI history of esophageal ulcer S/P cholecystecomty Plan gave a dose of IV Vancomycin and started Merrem pending blood, urine cx, CT A/P discussed with Dr. Rubalcava will also continue ART and PJP prophylaxis will monitor clinically
[2018-01-14 16:44] LABS: VENOUS BLOOD GAS BASE EXCESS 6.6 mmol/L (0.0-2.0); VENOUS BLOOD GAS PO2 49 mm/Hg (30-55); VENOUS BLOOD PH 7.46 (7.32-7.43)
--- NOTE | 2018-01-14 16:47 | CT ---
Date of service: 01/14/2018 PROCEDURE: CT Chest, Abdomen and Pelvis without intravenous contrast HISTORY: HYPOTENSION/FEVER/HIV/AIDS/POST CARDIAC CATH COMPARISON: 12/02/2017 CT chest and abdomen TECHNIQUE: Radiation dose: Total exam DLP = mGy-cm. This CT exam was performed using one or more of the following dose reduction techniques: Automated exposure control, adjustment of the mA and/or kV according to patient size, and/or use of iterative reconstruction technique. FINDINGS: CT CHEST WITHOUT CONTRAST: LUNGS: Clear. No nodule, mass or consolidation. MEDIASTINUM: Unremarkable. Normal caliber aorta and pulmonary arterial trunk. Cardiomegaly. No evidence of acute, significant cardiovascular disease. Venous access catheter in stable, satisfactory position. LYMPH NODES: Unremarkable. PLEURA: Unremarkable. No pneumothorax. No pleural fluid. BONES: Unremarkable. OTHER FINDINGS: None. CT ABDOMEN AND PELVIS: LIVER: Unremarkable. No gross lesion or ductal dilatation. GALLBLADDER AND BILE DUCTS: Status post cholecystectomy. No abnormality is seen in the gallbladder fossa. PANCREAS: Unremarkable. No gross lesion or ductal dilatation. SPLEEN: Unremarkable. ADRENALS: Unremarkable. No mass. KIDNEYS AND URETERS: Atrophic kidneys. VASCULATURE: Unremarkable. No aortic aneurysm. BOWEL: Unremarkable. No obstruction. No gross mural thickening. APPENDIX: No abnormalities to suggest acute appendicitis. No right lower quadrant inflammatory processes identified. PERITONEUM: Unremarkable. No free fluid. No free air. LYMPH NODES: Unremarkable. No enlarged lymph nodes. BLADDER: Unremarkable. REPRODUCTIVE: Unremarkable. BONES: No acute fracture. OTHER FINDINGS: None. IMPRESSION: No acute findings related to/accounting for the clinical presentation. Additional benign and/or incidental findings described above. No significant interval change compared to the prior examination(s).
[2018-01-14 16:48] LABS: BASO # 0.01 K/mm3 (0.0-2.0); BASO % 0.2 % (0.0-3.0); EOS # 0.1 (0.0-0.7); EOS % 1.6 % (1.5-5.0); GRAN # 5.41 (1.4-6.5); GRAN % 88.9 % (50.0-68.0); HEMOGLOBIN 8.7 g/dL (12.0-16.0); LYMPH # 0.2 (1.2-3.4); LYMPH % 3.5 % (22.0-35.0); MEAN CELL VOLUME 101.8 fl (80.0-105.0); MEAN CORPUSCULAR HEMOGLOBIN 31.3 pg (25.0-35.0); MEAN CORPUSCULAR HGB CONC 30.7 g/dl (31.0-37.0); MEAN PLATELET VOLUME 11.7 fl (7.0-11.0); MONO # 0.4 (0.1-0.6); MONO % 5.8 % (1.0-6.0); RBC 2.78 10^6/uL (3.5-6.1); RED CELL DISTRIBUTION WIDTH 15.3 % (11.5-14.5); WHITE BLOOD COUNT 6.1 10^3/ul (4.5-11.0)
[2018-01-14 17:06] LABS: ALB/GLOB RATIO 0.7 (1.1-1.8); ALBUMIN 3.5 g/dL (3.0-4.8); CALCIUM 7.9 mg/dL (8.4-10.5)
[2018-01-14] MEDS: Meropenem 500 MG in Sodium Chloride 0.9% 50 ML IVPB SCH (17:55)
[2018-01-14] MEDS: Lidocaine 5% Patch TD SCH (21:45)
[2018-01-14] MEDS: DARUNAVIR ETHANOLATE 800 MG PO SCH (22:29)
--- NOTE | 2018-01-14 23:19 | PN ---
DATE: 01/14/2018 SUBJECTIVE: The patient is seen in ICU. The patient's overnight events were noted. The patient had a rapid response. last night around the last evening due to hypotension. The patient was evaluated by the [employer] team and the patient was transferred to ICU for management of hypotension. The patient is seen lying in the bed in ICU bed 2. The patient is awake, responsive. REVIEW OF SYSTEMS: The patient's 13-system review was pertinent positive for fatigue and tiredness. PHYSICAL EXAMINATION: VITAL SIGNS: T-max in the last 24 hours, 101.9 and 102 degrees Fahrenheit. Telemetry shows sinus rhythm, sinus tachycardia. Blood pressure in the last 12 to 24 hours, the patient's blood pressure dropped to 70/45. The patient's rapid response was called yesterday because of her hypotension. The patient's blood pressure has been staying in systolic 70s, 80s, 90s. The patient is now started on Levophed drip. Respirations, intermittently the patient was found to be tachypneic. Oxygen saturation has been averaging around high to mid 90s. GENERAL: The patient is seen lying in the bed. HEENT: Head examination normocephalic, atraumatic. HEENT examination shows pinkish pale conjunctivae. Anicteric sclerae. No oropharyngeal lesion. No neck rigidity. CHEST: Kyphosis. Positive right upper chest tube dialysis catheter noted. Occasional rhonchi upper lung melchor, anterior noted. CARDIOVASCULAR: S1, S2, regular rhythm. Positive systolic murmur at left sternal border, right second intercostal space, and left second intercostal space. ABDOMEN: Soft. Positive bowel sounds. GENITALIA: Female. RECTAL: Examination is deferred. EXTREMITIES: Shows positive left upper extremity AV fistula, positive thrill. Lower extremity shows no pitting, no calf tenderness, no Debbi's signs. MUSCULOSKELETAL: Examination shows a body mass index of 22.5. NEUROLOGIC: The patient is alert, awake, and oriented x3. DIAGNOSTICS: From 01/14, WBC count is 8.9, hemoglobin/hematocrit 8.1/ 26, platelet 85,000 and 95,000. Granulocytes 77% segs, 21 bands. Repeat CBC shows a WBC of 6.1, hemoglobin/hematocrit 8.7/28.3, platelet 83,000. Differential 89% segs. VBG was done; pH was 7.4, 7.46; lactic acid 1.6, 1.9. Chemistry is significant for BUN and creatinine of 24 and 7.2; calcium 7.3; phosphorus 4.9; magnesium 1.4 and 1.7; AST 76 and 101. C-reactive protein is greater than 15. Procalcitonin level is 11.2. Hepatitis B surface antibody indeterminate. Hepatitis B core IgM and B surface antigen negative. Blood cultures, no growth. Blood type A positive. The patient had a chest x-ray, abdominal x-ray, CAT scan of the chest and abdomen and pelvis all reviewed. EKG was reviewed. IMPRESSION AND PLAN: 1. High-grade fever of greater than 102 degrees Fahrenheit. 2. Tachycardia. 3. Hypotension, pressor dependent hypotension. 4. Status post rapid response. 5. Tachypnea. 6. Questionable systemic inflammatory response syndrome with sepsis. 7. Leukopenia, anemia, thrombocytopenia, pancytopenia, granulocytosis and bandemia. 8. End-stage renal disease, hemodialysis dependent. 9. Hyperprocalcitoninemia of greater than 11.2. 10. Elevated C-reactive protein of greater than 15. 11. Transaminitis. 12. Hyperphosphatemia. 13. Hypocalcemia. 14. Sinus tachycardia. 15. Hypertensive cardiovascular disease. 16. Questionable prolonged QT interval. 17. Right internal jugular dialysis catheter placement. 18. Cardiomegaly. 19. Right colonic fecal retention. 20. Status post cholecystectomy. 21. Status post cardiac catheterization. 22. Diffuse left ventricular hypokinesis with left ventricle ejection fraction of 40% to 45%. 23. 50% stenosis of the mid left anterior descending artery with patent stent of the proximal and midportion left anterior descending artery. 24. Patent stent of the left circumflex artery. 25. Ischemic cardiomyopathy. 26. Systemic inflammatory response syndrome with high-grade fever, tachycardia, hypotension, tachypnea. 27. Advanced human immunodeficiency virus and acquired immunodeficiency syndrome, noncompliant with antiretroviral therapy with CD-4 lymphopenia. 28. Anemia. 29. Constipation. 30. Hypovitaminosis D. 31. History of narcotic dependent and narcotic abuse. PLAN: At this time, the patient is to be continued in ICU with Levophed drip for Levophed support. Repeat CMP, LFT, magnesium, phosphorus, CBC, platelet have been ordered. Blood cultures have been ordered. Current consultation; Cardiology, Infectious Disease, Nephrology, Gastroenterology. The patient is currently on IV acetaminophen 1000 mg IV every 8 hours, Mucomyst nebulizer 20% 4 mL every 6 hours, Atarax 25 mg b.i.d. p.r.n., Colace 100 mg three times a day, Prezista 800 mg at bedtime, Drisdol 50,000 units weekly, Ecotrin 81 mg daily, Epivir 150 mg Friday, Friday and Friday, folic acid 1 mg daily, Lipitor 40 mg daily, Lovaza 1 g twice a day, Mepron 750 mg twice a day, meropenem 500 mg IV daily, MiraLax 17 g twice a day, Levophed drip at 4 mcg per minute, Norvir 100 mg at bedtime, PhosLo 1334 mg three times a day, ProAmatine 10 mg three times a day, Protonix 40 mg IV every 12, Reglan 5 mg IV every 6, Synthroid 25 mcg daily, p.o. Tylenol and suppository p.r.n., Xopenex nebulizer 0.63 mg every 6 hours, abacavir 300 mg twice a day, Zofran 4 mg IV every 4 p.r.n. The patient has been ordered incentive spirometry, oxygen nasal cannula, renal diet. At present, the patient will be monitored in ICU till patient is more stable. Time spent in the entire management more than 35 minutes. The patient is to be continued till the patient is more stabilized. Dictated and electronically signed, not read. Ranjith Rubalcava MD
[2018-01-15] MEDS: Acetylcysteine 20% Inhal Soln (4ml) IH SCH ×5 (01:33→20:23)
[2018-01-15] MEDS: Levalbuterol 0.63 MG/3 ML Inhal Soln UD IH SCH ×5 (01:33→20:00)
--- NOTE | 2018-01-15 01:56 | PN ---
DATE: 01/14/2018 SUBJECTIVE: The patient is seen lying in bed in the ICU. Daughter is at bedside. The patient is awake. She is alert. She complains of some right-sided pain. She complains of some epigastric pain. She reports that she had a high-grade fever earlier. She is also complaining of some cough. She denies any nausea at present. She had a cardiac cath done earlier yesterday. Post cath, during dialysis, the patient developed a fever. She spiked the temperature to 103 later. Subsequently, during the day became hypotensive, . RR was initiated and the patient was transferred to the ICU. Early this morning, she was started on Levophed because of persistent hypotension despite IV fluid resuscitation. She had dialysis, but no ultrafiltration was possible. Only half a kilo was removed. PHYSICAL EXAMINATION GENERAL: Middle-aged lady lying in bed in the ICU. VITAL SIGNS: Blood pressure 95/55, heart rate 90 per minute, respiratory rate 24, temperature 98.2, T-max is 101.9. HEENT: Normocephalic, atraumatic, positive pallor, no icterus. NECK: Supple, no JVD. LUNGS: Bilateral equal air entry, bilateral rhonchi, scattered rales. CARDIAC: S1, S2. Regular rate and rhythm, no murmur, no rub. ABDOMEN: Soft, diffuse tenderness, bowel sounds present. EXTREMITIES: No lower extremity edema. INTAKE AND OUTPUT: Not charted. LABORATORY DATA: Today, the WBC is 8.9, hemoglobin 8, hematocrit 26, platelets 85, 96% polys. Sodium 137, potassium 4.6, chloride 101, CO2 of 27, BUN 24, creatinine 7.2, glucose 105, lactic acid 1, uric acid 4, calcium 7.3, phosphorus 4.9, magnesium 1.4. Albumin 3.2, corrected calcium is 7.8. C-reactive protein greater than 15. Procalcitonin 11.2. Blood culture, no growth so far. CT of the chest, abdomen and pelvis, no acute finding. ASSESSMENT: 1. Systemic inflammatory response syndrome, high-grade fever, hypotension. 2. Coronary artery disease, cardiac catheterization yesterday showing patent stent to left anterior descending, ejection fraction 40% to 45%. 3. Severe anemia. 4. History of hypertension. 5. End-stage renal disease. 6. Human immunodeficiency virus/acquired immunodeficiency syndrome, noncompliant with highly active antiretroviral therapy. 7. Secondary hyperparathyroidism. PLAN: 1. Continue pressor support for the time being. 2. Empiric antibiotics as per ID recommendations. 3. Followup cultures. 4. Source of sepsis ? right IJ catheter, we will discuss with ID. 5. May need catheter change. 6. Case discussed with ICU resident, case discussed with ICU staff, case discussed with dialysis staff, case discussed with daughter and the patient at bedside. More than 35 minutes spent in the care of this critically ill patient. Meryl Shukla MD MTDD
[2018-01-15] MEDS: Levothyroxine 25 MCG TAB PO SCH (06:08)
[2018-01-15 06:56] LABS: BASO # 0.01 K/mm3 (0.0-2.0); BASO % 0.2 % (0.0-3.0); EOS # 0.2 (0.0-0.7); EOS % 4.1 % (1.5-5.0); GRAN # 4.04 (1.4-6.5); GRAN % 76.1 % (50.0-68.0); HEMOGLOBIN 8.5 g/dL (12.0-16.0); LYMPH # 0.5 (1.2-3.4); MEAN CELL VOLUME 101.5 fl (80.0-105.0); MEAN CORPUSCULAR HGB CONC 30.6 g/dl (31.0-37.0); MEAN PLATELET VOLUME 11.5 fl (7.0-11.0); MONO # 0.5 (0.1-0.6); MONO % 9.6 % (1.0-6.0); RBC 2.74 10^6/uL (3.5-6.1); RED CELL DISTRIBUTION WIDTH 15.4 % (11.5-14.5); WHITE BLOOD COUNT 5.3 10^3/ul (4.5-11.0)
--- NOTE | 2018-01-15 07:02 | CP.CCUPN ---
<Silvio Britt - Last Filed: 01/15/18 10:44> CCU Subjective - Physician Review Subjective (Free Text): Silvio Britt DO PGY1 - Internal Medicine Process Trainer - ICU Progress Note Seen and examined at bedside this morning No acute events overnight; no complaints this morning 12 system ROS negative 01/15/18 08:48 CCU Objective - Vital Signs / Intake & Output Vital Signs (Last 4 hours): Vital Signs Pulse Resp BP Pulse Ox 01/15/18 06:00 77 27 H 112/61 97 01/15/18 05:50 85 18 99 01/15/18 05:40 76 25 H 99 01/15/18 05:30 74 30 H 98/60 L 98 01/15/18 05:20 78 17 98 01/15/18 05:10 76 27 H 99 01/15/18 05:00 78 26 H 99/54 L 98 01/15/18 04:50 77 17 99 01/15/18 04:40 80 17 99 01/15/18 04:30 81 18 100/55 L 98 01/15/18 04:20 76 36 H 99 01/15/18 04:10 77 18 100 01/15/18 04:00 77 19 100/57 L 98 01/15/18 03:50 77 31 H 99 01/15/18 03:40 76 22 100 01/15/18 03:30 76 29 H 99/59 L 99 01/15/18 03:20 77 27 H 99 01/15/18 03:10 80 15 99 Intake and Output (Last 8hrs): Intake & Output 01/14/18 01/15/18 01/15/18 22:59 06:59 14:59 Intake Total 15 140.5 Balance 15 140.5 Intake: IV 15 140.5 - Physical Exam Head: Positive for: Atraumatic, Normocephalic Pupils: Positive for: PERRL Extroacular Muscles: Positive for: EOMI Conjunctiva: Positive for: Normal Mouth: Positive for: Moist Mucous Membranes Respiratory/Chest: Positive for: Clear to Auscultation, Good Air Exchange. Negative for: Respiratory Distress, Accessory Muscle Use Cardiovascular: Positive for: Regular Rate and Rhythm, Normal S1, S2. Negative for: Murmurs Abdomen: Positive for: Tenderness (diffusely tender), Normal Bowel Sounds, Other (Patient verbalizes pain however does not appear to be guarding; abdomen is not rigid ; No changes from day prior ). Negative for: Distention, Peritoneal Signs, Guarding Upper Extremity: Positive for: Normal Inspection. Negative for: Edema Lower Extremity: Positive for: Normal Inspection, NORMAL PULSES (2+ DP/TP BL ). Negative for: Edema Neurological: Positive for: GCS=15, CN II-XII Intact Skin: Positive for: Warm, Dry, Normal Color Psychiatric: Positive for: Alert, Oriented x 3 - Medications Active Medications: Active Medications Generic Name Dose Route Start Last Admin Trade Name Freq PRN Reason Stop Dose Admin Abacavir Sulfate 300 mg 01/13/18 11:30 01/14/18 19:00 Ziagen PO Not Given BID [facility] Protocol Acetaminophen 650 mg 01/13/18 11:12 01/13/18 15:32 Tylenol 325mg Tab PO 650 mg Q6 PRN Administration TEMP>=99.5F Acetaminophen 650 mg 01/13/18 11:12 Tylenol 650 Mg Supp RC Q6H PRN TEMP>=99.5F Acetaminophen 650 mg 01/13/18 11:17 Tylenol 325mg Tab PO Q4H PRN Fever >100.4 F Acetylcysteine 4 ml 01/13/18 14:00 01/15/18 01:33 Acetylcysteine 20% IH Not Given [id number] [facility] Aspirin 81 mg 01/13/18 11:15 01/14/18 11:18 Ecotrin PO 81 mg DAILY DOUGLAS Administration Atorvastatin Calcium 40 mg 01/13/18 17:00 01/14/18 17:56 Lipitor PO 40 mg DIN DOUGLAS Administration Atovaquone 750 mg 01/13/18 11:30 01/14/18 18:32 Mepron PO Not Given BID [facility] Protocol Calcium Acetate 1,334 mg 01/13/18 14:00 01/14/18 18:33 Phoslo PO Not Given TID [facility] Docusate Sodium 100 mg 01/13/18 14:00 01/14/18 18:32 Colace PO Not Given TID [facility] Ergocalciferol 1 cap 01/13/18 11:30 Drisdol 50,000 Intl Units Cap PO Q7D [facility] Folic Acid 1 mg 01/14/18 10:00 01/14/18 11:18 Folic Acid PO 1 mg DAILY DOUGLAS Administration Hydroxyzine HCl 25 mg 01/13/18 11:17 Atarax PO BID PRN Anxiety Sodium Chloride 1,000 mls @ 10 mls/hr 01/13/18 11:15 01/14/18 14:11 Sodium Chloride 0.9% IV 10 mls/hr .Q24H DOUGLAS Administration Acetaminophen 1,000 mg in 100 mls @ 400 mls/hr 01/13/18 22:00 01/15/18 06:02 Ofirmev IVPB 01/15/18 22:01 400 mls/hr Q8 DOUGLAS Administration NOREPINEPHRINE BIT/0.9 % NACL 4 mg in 250 mls @ 15 mls/hr 01/14/18 07:30 06:06 Levophed 4 Mg/ 250 Ml Ns Premixed IV 1 mcg/min .[id number] PRN 3.75 mls/hr TITRATE PER MD ORDER Titration Protocol 4 MCG/MIN Meropenem 500 mg/ Sodium 50 mls @ 100 mls/hr 01/14/18 10:26 01/14/18 17:55 Chloride IVPB 01/21/18 06:01 100 mls/hr 1800 DOUGLAS Administration Protocol Lamivudine 150 mg 01/16/18 10:00 Epivir PO MWF DOUGLAS Protocol Levalbuterol HCl 0.63 mg 01/13/18 14:00 01/15/18 01:33 Xopenex IH Not Given [id number] DOUGLAS Levothyroxine Sodium 25 mcg 01/14/18 06:00 01/15/18 06:08 Synthroid PO 25 mcg 0600 DOUGLAS Administration Lidocaine 1 ea 01/14/18 21:30 01/14/18 21:45 Lidoderm TD Not Given DAILY DOUGLAS Metoclopramide HCl 5 mg 01/13/18 20:15 01/15/18 02:28 Reglan IVP 5 mg Q6H DOUGLAS Administration Midodrine 10 mg 01/14/18 19:32 Proamatine PO TID DOUGLAS Multivitamins 1 tab 01/13/18 11:30 01/14/18 11:18 Thera Tab PO 1 tab DAILY DOUGLAS Administration Darunavir Ethanolate 800 mg 01/14/18 06:32 01/14/18 22:29 [Prezista] 800 Mg ( PO Not Given Home Med) HS DOUGLAS Vqixk-2-Pbfs Ethyl Esters 1 gm 01/13/18 11:30 01/14/18 18:32 Lovaza PO Not Given BID DOUGLAS Ondansetron HCl 4 mg 01/13/18 11:12 Zofran Inj IVP Q4H PRN Nausea/Vomiting Pantoprazole Sodium 40 mg 01/13/18 11:15 01/14/18 21:55 Protonix Inj IVP 40 mg Q12 DOUGLAS Administration Polyethylene Glycol 17 gm 01/13/18 18:00 01/14/18 18:32 Miralax PO Not Given BID DOUGLAS Ritonavir 100 mg 01/14/18 22:00 01/14/18 22:21 Norvir PO Not Given HS DOUGLAS Protocol Tramadol HCl 50 mg 01/14/18 20:59 Ultram PO Q8H PRN Pain, moderate (4-7) - Patient Studies Lab Studies: Microbiology Studies 01/13/18 19:40 Blood Culture - Preliminary Blood NO GROWTH AFTER 24 HOURS Lab Studies 01/14/18 01/14/18 01/14/18 Range/Units 16:39 16:39 16:39 WBC 6.1 D (4.5-11.0) 10^3/ul RBC 2.78 L (3.5-6.1) 10^6/uL Hgb 8.7 L (12.0-16.0) g/dL Hct 28.3 L (36.0-48.0) % MCV 101.8 (80.0-105.0) fl MCH 31.3 (25.0-35.0) pg MCHC 30.7 L (31.0-37.0) g/dl RDW 15.3 H (11.5-14.5) % Plt Count 83 L (120.0-450.0) 10^3/uL Manual Plt Count (120-450) K/mm3 MPV 11.7 H (7.0-11.0) fl Gran % 88.9 H (50.0-68.0) % Lymph % (Auto) 3.5 L (22.0-35.0) % Smyth % (Auto) 5.8 (1.0-6.0) % Eos % (Auto) 1.6 (1.5-5.0) % Baso % (Auto) 0.2 (0.0-3.0) % Gran # 5.41 (1.4-6.5) Lymph # (Auto) 0.2 L (1.2-3.4) Smyth # (Auto) 0.4 (0.1-0.6) Eos # (Auto) 0.1 (0.0-0.7) Baso # (Auto) 0.01 (0.0-2.0) K/mm3 Neutrophils % (Manual) (50.0-70.0) % Band Neutrophils % (0-2) % Lymphocytes % (Manual) (22.0-35.0) % Monocytes % (Manual) (1.0-6.0) % Toxic Granulation Platelet Evaluation (NORMAL) Polychromasia Hypochromasia Anisocytosis (manual) Macrocytosis (manual) pO2 49 (30-55) mm/Hg VBG pH 7.46 H (7.32-7.43) VBG pCO2 44.0 (40-60) VBG HCO3 31.3 H (21-28) mmol/l VBG Total CO2 32.7 H (22-28) mmol.L VBG O2 Sat (Calc) 87.8 H (40-65) % VBG Base Excess 6.6 H (0.0-2.0) mmol/L VBG Potassium 3.8 (3.6-5.2) mmol/L Glucose 115 H (65-105) mg/dl Lactate 1.9 (0.7-2.1) mmol/L FiO2 21.0 % Sodium 138.0 139 (132-148) mmol/L Potassium 4.1 (3.6-5.0) mmol/L Chloride 103.0 99 (98-107) mmol/L Carbon Dioxide 29 (21-33) mmol/L Anion Gap 14 (10-20) BUN 15 (7-21) mg/dL Creatinine 3.8 H (0.7-1.2) mg/dl Est GFR ( Amer) 15 Est GFR (Non-Af Amer) 12 Random Glucose 114 H (70-110) mg/dL Lactic Acid (0.7-2.1) mmol/L Uric Acid (2.5-6.2) mg/dL Calcium 7.9 L (8.4-10.5) mg/dL Phosphorus 4.1 (2.5-4.5) mg/dL Magnesium 1.7 (1.7-2.2) mg/dL Total Bilirubin 0.9 (0.2-1.3) mg/dL Direct Bilirubin (0.0-0.4) mg/dL AST 101 H D (14-36) U/L ALT 36 (7-56) U/L Alkaline Phosphatase 104 (38-126) U/L C-React Prot High Sens (1.00-3.00) mg/L Total Protein 8.1 (5.8-8.3) g/dL Albumin 3.5 (3.0-4.8) g/dL Globulin 4.6 gm/dL Albumin/Globulin Ratio 0.7 L (1.1-1.8) Procalcitonin (0.19-0.49) NG/ML Venous Blood Potassium 3.8 (3.6-5.2) mmol/L Hep Bs Antigen (NEGATIVE) Hep Bs Antibody (NEGATIVE) Hep B Core IgM Ab (NEGATIVE) 01/14/18 01/14/18 01/14/18 Range/Units 07:15 07:15 07:15 WBC (4.5-11.0) 10^3/ul RBC (3.5-6.1) 10^6/uL Hgb (12.0-16.0) g/dL Hct (36.0-48.0) % MCV (80.0-105.0) fl MCH (25.0-35.0) pg MCHC (31.0-37.0) g/dl RDW (11.5-14.5) % Plt Count (120.0-450.0) 10^3/uL Manual Plt Count 95 L (120-450) K/mm3 MPV (7.0-11.0) fl Gran % (50.0-68.0) % Lymph % (Auto) (22.0-35.0) % Smyth % (Auto) (1.0-6.0) % Eos % (Auto) (1.5-5.0) % Baso % (Auto) (0.0-3.0) % Gran # (1.4-6.5) Lymph # (Auto) (1.2-3.4) Smyth # (Auto) (0.1-0.6) Eos # (Auto) (0.0-0.7) Baso # (Auto) (0.0-2.0) K/mm3 Neutrophils % (Manual) (50.0-70.0) % Band Neutrophils % (0-2) % Lymphocytes % (Manual) (22.0-35.0) % Monocytes % (Manual) (1.0-6.0) % Toxic Granulation Platelet Evaluation (NORMAL) Polychromasia Hypochromasia Anisocytosis (manual) Macrocytosis (manual) pO2 (30-55) mm/Hg VBG pH (7.32-7.43) VBG pCO2 (40-60) VBG HCO3 (21-28) mmol/l VBG Total CO2 (22-28) mmol.L VBG O2 Sat (Calc) (40-65) % VBG Base Excess (0.0-2.0) mmol/L VBG Potassium (3.6-5.2) mmol/L Glucose (65-105) mg/dl Lactate (0.7-2.1) mmol/L FiO2 % Sodium 137 (132-148) mmol/L Potassium 4.6 (3.6-5.0) mmol/L Chloride 101 (98-107) mmol/L Carbon Dioxide 27 (21-33) mmol/L Anion Gap 14 (10-20) BUN 24 H (7-21) mg/dL Creatinine 7.2 H (0.7-1.2) mg/dl Est GFR ( Amer) 7 Est GFR (Non-Af Amer) 6 Random Glucose 105 (70-110) mg/dL Lactic Acid 1.0 (0.7-2.1) mmol/L Uric Acid 4.0 (2.5-6.2) mg/dL Calcium 7.3 L (8.4-10.5) mg/dL Phosphorus 4.9 H (2.5-4.5) mg/dL Magnesium 1.4 L (1.7-2.2) mg/dL Total Bilirubin 0.8 (0.2-1.3) mg/dL Direct Bilirubin 0.8 H (0.0-0.4) mg/dL AST 76 H (14-36) U/L ALT 27 (7-56) U/L Alkaline Phosphatase 103 (38-126) U/L C-React Prot High Sens (1.00-3.00) mg/L Total Protein 7.6 (5.8-8.3) g/dL Albumin 3.2 (3.0-4.8) g/dL Globulin 4.4 gm/dL Albumin/Globulin Ratio 0.7 L (1.1-1.8) Procalcitonin (0.19-0.49) NG/ML Venous Blood Potassium (3.6-5.2) mmol/L Hep Bs Antigen (NEGATIVE) Hep Bs Antibody (NEGATIVE) Hep B Core IgM Ab (NEGATIVE) 01/14/18 01/14/18 01/14/18 Range/Units 07:15 07:15 07:15 WBC 8.9 (4.5-11.0) 10^3/ul RBC 2.59 L (3.5-6.1) 10^6/uL Hgb 8.1 L (12.0-16.0) g/dL Hct 26.1 L (36.0-48.0) % MCV 100.8 (80.0-105.0) fl MCH 31.3 (25.0-35.0) pg MCHC 31.0 (31.0-37.0) g/dl RDW 15.3 H (11.5-14.5) % Plt Count 85 L (120.0-450.0) 10^3/uL Manual Plt Count (120-450) K/mm3 MPV 11.3 H (7.0-11.0) fl Gran % 95.6 H (50.0-68.0) % Lymph % (Auto) 1.3 L (22.0-35.0) % Smyth % (Auto) 2.2 (1.0-6.0) % Eos % (Auto) 0.9 L (1.5-5.0) % Baso % (Auto) 0.0 (0.0-3.0) % Gran # 8.49 H (1.4-6.5) Lymph # (Auto) 0.1 L (1.2-3.4) Smyth # (Auto) 0.2 (0.1-0.6) Eos # (Auto) 0.1 (0.0-0.7) Baso # (Auto) 0.00 (0.0-2.0) K/mm3 Neutrophils % (Manual) 77 H (50.0-70.0) % Band Neutrophils % 21 H* (0-2) % Lymphocytes % (Manual) 1 L (22.0-35.0) % Monocytes % (Manual) 1 (1.0-6.0) % Toxic Granulation Slight Platelet Evaluation Low (NORMAL) Polychromasia Slight Hypochromasia 2+ Anisocytosis (manual) 1+ Macrocytosis (manual) 1+ pO2 (30-55) mm/Hg VBG pH (7.32-7.43) VBG pCO2 (40-60) VBG HCO3 (21-28) mmol/l VBG Total CO2 (22-28) mmol.L VBG O2 Sat (Calc) (40-65) % VBG Base Excess (0.0-2.0) mmol/L VBG Potassium (3.6-5.2) mmol/L Glucose (65-105) mg/dl Lactate (0.7-2.1) mmol/L FiO2 % Sodium (132-148) mmol/L Potassium (3.6-5.0) mmol/L Chloride (98-107) mmol/L Carbon Dioxide (21-33) mmol/L Anion Gap (10-20) BUN (7-21) mg/dL Creatinine (0.7-1.2) mg/dl Est GFR ( Amer) Est GFR (Non-Af Amer) Random Glucose (70-110) mg/dL Lactic Acid (0.7-2.1) mmol/L Uric Acid (2.5-6.2) mg/dL Calcium (8.4-10.5) mg/dL Phosphorus (2.5-4.5) mg/dL Magnesium (1.7-2.2) mg/dL Total Bilirubin (0.2-1.3) mg/dL Direct Bilirubin (0.0-0.4) mg/dL AST (14-36) U/L ALT (7-56) U/L Alkaline Phosphatase (38-126) U/L C-React Prot High Sens > 15.00 H (1.00-3.00) mg/L Total Protein (5.8-8.3) g/dL Albumin (3.0-4.8) g/dL Globulin gm/dL Albumin/Globulin Ratio (1.1-1.8) Procalcitonin 11.20 H (0.19-0.49) NG/ML Venous Blood Potassium (3.6-5.2) mmol/L Hep Bs Antigen (NEGATIVE) Hep Bs Antibody (NEGATIVE) Hep B Core IgM Ab (NEGATIVE) 01/14/18 01/13/18 Range/Units 07:15 18:36 WBC (4.5-11.0) 10^3/ul RBC (3.5-6.1) 10^6/uL Hgb (12.0-16.0) g/dL Hct (36.0-48.0) % MCV (80.0-105.0) fl MCH (25.0-35.0) pg MCHC (31.0-37.0) g/dl RDW (11.5-14.5) % Plt Count (120.0-450.0) 10^3/uL Manual Plt Count (120-450) K/mm3 MPV (7.0-11.0) fl Gran % (50.0-68.0) % Lymph % (Auto) (22.0-35.0) % Smyth % (Auto) (1.0-6.0) % Eos % (Auto) (1.5-5.0) % Baso % (Auto) (0.0-3.0) % Gran # (1.4-6.5) Lymph # (Auto) (1.2-3.4) Smyth # (Auto) (0.1-0.6) Eos # (Auto) (0.0-0.7) Baso # (Auto) (0.0-2.0) K/mm3 Neutrophils % (Manual) (50.0-70.0) % Band Neutrophils % (0-2) % Lymphocytes % (Manual) (22.0-35.0) % Monocytes % (Manual) (1.0-6.0) % Toxic Granulation Platelet Evaluation (NORMAL) Polychromasia Hypochromasia Anisocytosis (manual) Macrocytosis (manual) pO2 (30-55) mm/Hg VBG pH (7.32-7.43) VBG pCO2 (40-60) VBG HCO3 (21-28) mmol/l VBG Total CO2 (22-28) mmol.L VBG O2 Sat (Calc) (40-65) % VBG Base Excess (0.0-2.0) mmol/L VBG Potassium (3.6-5.2) mmol/L Glucose (65-105) mg/dl Lactate (0.7-2.1) mmol/L FiO2 % Sodium (132-148) mmol/L Potassium (3.6-5.0) mmol/L Chloride (98-107) mmol/L Carbon Dioxide (21-33) mmol/L Anion Gap (10-20) BUN (7-21) mg/dL Creatinine (0.7-1.2) mg/dl Est GFR ( Amer) Est GFR (Non-Af Amer) Random Glucose (70-110) mg/dL Lactic Acid (0.7-2.1) mmol/L Uric Acid (2.5-6.2) mg/dL Calcium (8.4-10.5) mg/dL Phosphorus (2.5-4.5) mg/dL Magnesium (1.7-2.2) mg/dL Total Bilirubin (0.2-1.3) mg/dL Direct Bilirubin (0.0-0.4) mg/dL AST (14-36) U/L ALT (7-56) U/L Alkaline Phosphatase (38-126) U/L C-React Prot High Sens (1.00-3.00) mg/L Total Protein (5.8-8.3) g/dL Albumin (3.0-4.8) g/dL Globulin gm/dL Albumin/Globulin Ratio (1.1-1.8) Procalcitonin (0.19-0.49) NG/ML Venous Blood Potassium (3.6-5.2) mmol/L Hep Bs Antigen Negative (NEGATIVE) Hep Bs Antibody Indeterminate (NEGATIVE) Hep B Core IgM Ab Negative (NEGATIVE) Laboratory Results - last 24 hr 01/13/18 01/14/18 01/14/18 18:36 07:15 07:15 WBC RBC Hgb Hct MCV MCH MCHC RDW Plt Count Manual Plt Count MPV Gran % Lymph % (Auto) Smyth % (Auto) Eos % (Auto) Baso % (Auto) Gran # Lymph # (Auto) Smyth # (Auto) Eos # (Auto) Baso # (Auto) Neutrophils % (Manual) Band Neutrophils % Lymphocytes % (Manual) Monocytes % (Manual) Toxic Granulation Platelet Evaluation Polychromasia Hypochromasia Anisocytosis (manual) Macrocytosis (manual) pO2 VBG pH VBG pCO2 VBG HCO3 VBG Total CO2 VBG O2 Sat (Calc) VBG Base Excess VBG Potassium Glucose Lactate FiO2 Sodium Potassium Chloride Carbon Dioxide Anion Gap BUN Creatinine Est GFR ( Amer) Est GFR (Non-Af Amer) Random Glucose Lactic Acid Uric Acid Calcium Phosphorus Magnesium Total Bilirubin Direct Bilirubin AST ALT Alkaline Phosphatase C-React Prot High Sens Total Protein Albumin Globulin Albumin/Globulin Ratio Procalcitonin 11.20 H Venous Blood Potassium Hep Bs Antigen Negative Hep Bs Antibody Indeterminate Hep B Core IgM Ab Negative 01/14/18 01/14/18 01/14/18 07:15 07:15 07:15 WBC 8.9 RBC 2.59 L Hgb 8.1 L Hct 26.1 L MCV 100.8 MCH 31.3 MCHC 31.0 RDW 15.3 H Plt Count 85 L Manual Plt Count MPV 11.3 H Gran % 95.6 H Lymph % (Auto) 1.3 L Smyth % (Auto) 2.2 Eos % (Auto) 0.9 L Baso % (Auto) 0.0 Gran # 8.49 H Lymph # (Auto) 0.1 L Smyth # (Auto) 0.2 Eos # (Auto) 0.1 Baso # (Auto) 0.00 Neutrophils % (Manual) 77 H Band Neutrophils % 21 H* Lymphocytes % (Manual) 1 L Monocytes % (Manual) 1 Toxic Granulation Slight Platelet Evaluation Low Polychromasia Slight Hypochromasia 2+ Anisocytosis (manual) 1+ Macrocytosis (manual) 1+ pO2 VBG pH VBG pCO2 VBG HCO3 VBG Total CO2 VBG O2 Sat (Calc) VBG Base Excess VBG Potassium Glucose Lactate FiO2 Sodium 137 Potassium 4.6 Chloride 101 Carbon Dioxide 27 Anion Gap 14 BUN 24 H Creatinine 7.2 H Est GFR ( Amer) 7 Est GFR (Non-Af Amer) 6 Random Glucose 105 Lactic Acid Uric Acid 4.0 Calcium 7.3 L Phosphorus 4.9 H Magnesium 1.4 L Total Bilirubin 0.8 Direct Bilirubin 0.8 H AST 76 H ALT 27 Alkaline Phosphatase 103 C-React Prot High Sens > 15.00 H Total Protein 7.6 Albumin 3.2 Globulin 4.4 Albumin/Globulin Ratio 0.7 L Procalcitonin Venous Blood Potassium Hep Bs Antigen Hep Bs Antibody Hep B Core IgM Ab 01/14/18 01/14/18 01/14/18 07:15 07:15 16:39 WBC 6.1 D RBC 2.78 L Hgb 8.7 L Hct 28.3 L MCV 101.8 MCH 31.3 MCHC 30.7 L RDW 15.3 H Plt Count 83 L Manual Plt Count 95 L MPV 11.7 H Gran % 88.9 H Lymph % (Auto) 3.5 L Smyth % (Auto) 5.8 Eos % (Auto) 1.6 Baso % (Auto) 0.2 Gran # 5.41 Lymph # (Auto) 0.2 L Smyth # (Auto) 0.4 Eos # (Auto) 0.1 Baso # (Auto) 0.01 Neutrophils % (Manual) Band Neutrophils % Lymphocytes % (Manual) Monocytes % (Manual) Toxic Granulation Platelet Evaluation Polychromasia Hypochromasia Anisocytosis (manual) Macrocytosis (manual) pO2 VBG pH VBG pCO2 VBG HCO3 VBG Total CO2 VBG O2 Sat (Calc) VBG Base Excess VBG Potassium Glucose Lactate FiO2 Sodium Potassium Chloride Carbon Dioxide Anion Gap BUN Creatinine Est GFR ( Amer) Est GFR (Non-Af Amer) Random Glucose Lactic Acid 1.0 Uric Acid Calcium Phosphorus Magnesium Total Bilirubin Direct Bilirubin AST ALT Alkaline Phosphatase C-React Prot High Sens Total Protein Albumin Globulin Albumin/Globulin Ratio Procalcitonin Venous Blood Potassium Hep Bs Antigen Hep Bs Antibody Hep B Core IgM Ab 01/14/18 01/14/18 16:39 16:39 WBC RBC Hgb Hct MCV MCH MCHC RDW Plt Count Manual Plt Count MPV Gran % Lymph % (Auto) Smyth % (Auto) Eos % (Auto) Baso % (Auto) Gran # Lymph # (Auto) Smyth # (Auto) Eos # (Auto) Baso # (Auto) Neutrophils % (Manual) Band Neutrophils % Lymphocytes % (Manual) Monocytes % (Manual) Toxic Granulation Platelet Evaluation Polychromasia Hypochromasia Anisocytosis (manual) Macrocytosis (manual) pO2 49 VBG pH 7.46 H VBG pCO2 44.0 VBG HCO3 31.3 H VBG Total CO2 32.7 H VBG O2 Sat (Calc) 87.8 H VBG Base Excess 6.6 H VBG Potassium 3.8 Glucose 115 H Lactate 1.9 FiO2 21.0 Sodium 139 138.0 Potassium 4.1 Chloride 99 103.0 Carbon Dioxide 29 Anion Gap 14 BUN 15 Creatinine 3.8 H Est GFR ( Amer) 15 Est GFR (Non-Af Amer) 12 Random Glucose 114 H Lactic Acid Uric Acid Calcium 7.9 L Phosphorus 4.1 Magnesium 1.7 Total Bilirubin 0.9 Direct Bilirubin AST 101 H D ALT 36 Alkaline Phosphatase 104 C-React Prot High Sens Total Protein 8.1 Albumin 3.5 Globulin 4.6 Albumin/Globulin Ratio 0.7 L Procalcitonin Venous Blood Potassium 3.8 Hep Bs Antigen Hep Bs Antibody Hep B Core IgM Ab Review of Systems - Review of Systems All systems: reviewed and no additional remarkable complaints except Review of Systems: as per HPI Critical Care Progress Note - Nutrition Nutrition: Nutrition Category Date Time Status Renal Diet [DIET] Diets 01/13/18 Dinner Ordered Assessment/Plan - Assessment and Plan (Free Text) Assessment: 57F w/HFrEF -EF 40-45% ; ESRD HD MWF s/p HD on 01/13 post cardiac cath on 01/13 admitted to ICU 2/2 [employer] due to Hypotension. Neuro: -maintain normothermia -AAO x3, moving extremities spontaneously past midline Cardio: -Hypotension s/p HD; Febrile during [employer]; Consider septic shock vs cardiogenic shock vs hypovolemic shock -Non-responsive to 750ml boluses -Patient has had historical pressures ranging in systolic 90s -Levophed DC'd this AM -Pressures running in upper 80s systolic -Will continue to monitor w/o pressors at this time -Inc midodrine to 10mg TID last night -Cardiac cath on 01/13 50% stenosis of the mid LAD, EF of 40-45% and patent stents in the LAD and circumflex arteries with recommendations of continued medical therapy and medication compliance -Cardiology Following, Dr. Tran Lungs: -SaO2 >90% -supplementary O2 PRN -xopenex q6 -CXR shows no acute disease Renal: -HD for tomorrow -Maintain euvolemia -Avoid nephrotoxic agents -replace electrolytes as needed -CTAP - atrophic kidneys -HD MWF -Nephro on consult, Dr. Shukla Heme: Hb 8.5 stable Transfuse if patient goes below 7 Endo: -maintain euglycemia -synthroid 25mcg ID: -No white count -Febrile yesterday PM; Afebrile overnight -Repeat Lactate 1.9; stable -IV tylenol prn -Vanc/Zosyn DCd -Merem started -Blood culture negative at 24H -ProCal 11 - elevated -CRP elevated -CTAP Unremarkable -continue home HIV therapy. Ritonavir, abacavir, mepron, darunavir -ID on consult, Dr. Pedro GI: -renal diet -hepatitis B panel: HBs indeterminate; remainder is negative -abdominal xray pending -reglan 5mg IVP q6 -GI prophylaxis with protonix 40mg IVP q12 -GI on consult, Dr. Snider Patient was discussed, seen, and examined at bedside w/ attending physician Dr. Ross Britt DO PGY1 - Internal Medicine Process Trainer - Pager [phone] - Date & Time Date: 01/15/18 Time: 11:16 <Lazaro Hawkins - Last Filed: 01/15/18 11:43> CCU Objective - Vital Signs / Intake & Output Vital Signs (Last 4 hours): Vital Signs Temp Pulse Resp BP Pulse Ox 01/15/18 11:10 76 12 100 01/15/18 11:00 81 14 100 01/15/18 10:50 98 H 57 H 99 01/15/18 10:40 78 15 100 01/15/18 10:30 82 15 86/33 L 100 01/15/18 10:20 81 13 100 01/15/18 10:10 81 19 85/37 L 100 01/15/18 10:00 84 17 89/40 L 100 01/15/18 09:52 73 18 82/50 L 98 01/15/18 09:50 82 23 100 01/15/18 09:48 84 16 79/42 L 100 01/15/18 09:40 82 12 100 01/15/18 09:33 85 18 82/47 L 100 01/15/18 09:32 88 23 83/48 L 100 01/15/18 09:30 89 11 L 90/45 L 100 01/15/18 09:20 91 H 18 96 01/15/18 09:10 90 24 100 01/15/18 09:00 91 H 19 91/48 L 100 01/15/18 08:50 93 H 19 100 01/15/18 08:40 76 19 100 01/15/18 08:30 91 H 20 109/65 100 01/15/18 08:20 78 28 H 98 01/15/18 08:10 77 20 98 01/15/18 08:09 97.6 F 01/15/18 08:00 78 16 101/52 L 98 01/15/18 07:50 79 27 H 98 01/15/18 07:40 80 17 97 Intake and Output (Last 8hrs): Intake & Output 01/14/18 01/15/18 01/15/18 22:59 06:59 14:59 Intake Total 15 140.5 15 Balance 15 140.5 15 Intake: IV 15 140.5 15 - Medications Active Medications: Active Medications Generic Name Dose Route Start Last Admin Trade Name Freq PRN Reason Stop Dose Admin Abacavir Sulfate 300 mg 01/13/18 11:30 01/15/18 09:38 Ziagen PO Not Given BID [facility] Protocol Acetaminophen 650 mg 01/13/18 11:12 01/13/18 15:32 Tylenol 325mg Tab PO 650 mg Q6 PRN Administration TEMP>=99.5F Acetaminophen 650 mg 01/13/18 11:12 Tylenol 650 Mg Supp RC Q6H PRN TEMP>=99.5F Acetaminophen 650 mg 01/13/18 11:17 Tylenol 325mg Tab PO Q4H PRN Fever >100.4 F Acetylcysteine 4 ml 01/13/18 14:00 01/15/18 08:35 Acetylcysteine 20% IH 4 ml [id number] DOUGLAS Administration Aspirin 81 mg 01/13/18 11:15 01/15/18 09:21 Ecotrin PO 81 mg DAILY DOUGLAS Administration Atorvastatin Calcium 40 mg 01/13/18 17:00 01/14/18 17:56 Lipitor PO 40 mg DIN DOUGLAS Administration Atovaquone 750 mg 01/13/18 11:30 01/15/18 09:37 Mepron PO Not Given BID [facility] Protocol Calcium Acetate 1,334 mg 01/13/18 14:00 01/15/18 09:20 Phoslo PO 1,334 mg TID [facility] Administration Diphenhydramine HCl 25 mg 01/15/18 08:07 Benadryl IVP Q8H PRN Allergy symptoms Docusate Sodium 100 mg 01/13/18 14:00 01/15/18 09:36 Colace PO Not Given TID [facility] Ergocalciferol 1 cap 01/13/18 11:30 Drisdol 50,000 Intl Units Cap PO Q7D DOUGLAS Folic Acid 1 mg 01/14/18 10:00 01/15/18 09:20 Folic Acid PO 1 mg DAILY DOUGLAS Administration Sodium Chloride 1,000 mls @ 10 mls/hr 01/13/18 11:15 01/14/18 14:11 Sodium Chloride 0.9% IV 10 mls/hr .Q24H DOUGLAS Administration Acetaminophen 1,000 mg in 100 mls @ 400 mls/hr 01/13/18 22:00 01/15/18 06:02 Ofirmev IVPB 01/15/18 22:01 400 mls/hr Q8 DOUGLAS Administration Meropenem 500 mg/ Sodium 50 mls @ 100 mls/hr 01/14/18 10:26 01/14/18 17:55 Chloride IVPB 01/21/18 06:01 100 mls/hr 1800 DOUGLAS Administration Protocol Lamivudine 150 mg 01/16/18 10:00 Epivir PO MWF DOUGLAS Protocol Levalbuterol HCl 0.63 mg 01/13/18 14:00 01/15/18 08:35 Xopenex IH 0.63 mg [id number] DOUGLAS Administration Levothyroxine Sodium 25 mcg 01/14/18 06:00 01/15/18 06:08 Synthroid PO 25 mcg 0600 DOUGLAS Administration Lidocaine 1 ea 01/14/18 21:30 01/14/18 21:45 Lidoderm TD Not Given DAILY DOUGLAS Metoclopramide HCl 5 mg 01/13/18 20:15 01/15/18 09:15 Reglan IVP Not Given Q6H DOUGLAS Midodrine 10 mg 01/14/18 19:32 01/15/18 09:20 Proamatine PO 10 mg TID DOUGLAS Administration Multivitamins 1 tab 01/13/18 11:30 01/15/18 09:20 Thera Tab PO 1 tab DAILY DOUGLAS Administration Darunavir Ethanolate 800 mg 01/14/18 06:32 01/14/18 22:29 [Prezista] 800 Mg ( PO Not Given Home Med) HS DOUGLAS Goemb-9-Cufb Ethyl Esters 1 gm 01/13/18 11:30 01/15/18 09:37 Lovaza PO Not Given BID DOUGLAS Ondansetron HCl 4 mg 01/13/18 11:12 Zofran Inj IVP Q4H PRN Nausea/Vomiting Pantoprazole Sodium 40 mg 01/13/18 11:15 01/15/18 09:20 Protonix Inj IVP 40 mg Q12 DOUGLAS Administration Polyethylene Glycol 17 gm 01/13/18 18:00 01/15/18 09:37 Miralax PO Not Given BID DOUGLAS Ritonavir 100 mg 01/14/18 22:00 01/14/18 22:21 Norvir PO Not Given HS DOUGLAS Protocol Tramadol HCl 50 mg 01/14/18 20:59 Ultram PO Q8H PRN Pain, moderate (4-7) - Patient Studies Lab Studies: Microbiology Studies 01/13/18 19:40 Blood Culture - Preliminary Blood NO GROWTH AFTER 24 HOURS Lab Studies 01/15/18 01/15/18 01/15/18 Range/Units 08:05 06:00 06:00 WBC 5.3 (4.5-11.0) 10^3/ul RBC 2.74 L (3.5-6.1) 10^6/uL Hgb 8.5 L (12.0-16.0) g/dL Hct 27.8 L (36.0-48.0) % MCV 101.5 (80.0-105.0) fl MCH 31.0 (25.0-35.0) pg MCHC 30.6 L (31.0-37.0) g/dl RDW 15.4 H (11.5-14.5) % Plt Count 86 L (120.0-450.0) 10^3/uL Manual Plt Count 100 L (120-450) K/mm3 MPV 11.5 H (7.0-11.0) fl Gran % 76.1 H (50.0-68.0) % Lymph % (Auto) 10.0 L (22.0-35.0) % Smyth % (Auto) 9.6 H (1.0-6.0) % Eos % (Auto) 4.1 (1.5-5.0) % Baso % (Auto) 0.2 (0.0-3.0) % Gran # 4.04 (1.4-6.5) Lymph # (Auto) 0.5 L (1.2-3.4) Smyth # (Auto) 0.5 (0.1-0.6) Eos # (Auto) 0.2 (0.0-0.7) Baso # (Auto) 0.01 (0.0-2.0) K/mm3 pO2 (30-55) mm/Hg VBG pH (7.32-7.43) VBG pCO2 (40-60) VBG HCO3 (21-28) mmol/l VBG Total CO2 (22-28) mmol.L VBG O2 Sat (Calc) (40-65) % VBG Base Excess (0.0-2.0) mmol/L VBG Potassium (3.6-5.2) mmol/L Sodium 140 (132-148) mmol/L Chloride 104 (98-107) mmol/L Glucose (65-105) mg/dl Lactate (0.7-2.1) mmol/L FiO2 % Potassium 4.1 (3.6-5.0) mmol/L Carbon Dioxide 28 (21-33) mmol/L Anion Gap 12 (10-20) BUN 29 H (7-21) mg/dL Creatinine 5.6 H (0.7-1.2) mg/dl Est GFR ( Amer) 10 Est GFR (Non-Af Amer) 8 Random Glucose 88 (70-110) mg/dL Calcium 7.3 L (8.4-10.5) mg/dL Phosphorus 5.8 H (2.5-4.5) mg/dL Magnesium 1.8 (1.7-2.2) mg/dL Total Bilirubin 0.6 (0.2-1.3) mg/dL Direct Bilirubin 0.6 H (0.0-0.4) mg/dL AST 105 H (14-36) U/L ALT 42 (7-56) U/L Alkaline Phosphatase 96 (38-126) U/L Total Creatine Kinase 70 (35-230) U/L C-React Prot High Sens (1.00-3.00) mg/L Total Protein 7.1 (5.8-8.3) g/dL Albumin 3.0 (3.0-4.8) g/dL Globulin 4.1 gm/dL Albumin/Globulin Ratio 0.7 L (1.1-1.8) Procalcitonin (0.19-0.49) NG/ML Venous Blood Potassium (3.6-5.2) mmol/L Hep Bs Antigen (NEGATIVE) Hep Bs Antibody (NEGATIVE) Hep B Core IgM Ab (NEGATIVE) 01/14/18 01/14/18 01/14/18 Range/Units 16:39 16:39 16:39 WBC 6.1 D (4.5-11.0) 10^3/ul RBC 2.78 L (3.5-6.1) 10^6/uL Hgb 8.7 L (12.0-16.0) g/dL Hct 28.3 L (36.0-48.0) % MCV 101.8 (80.0-105.0) fl MCH 31.3 (25.0-35.0) pg MCHC 30.7 L (31.0-37.0) g/dl RDW 15.3 H (11.5-14.5) % Plt Count 83 L (120.0-450.0) 10^3/uL Manual Plt Count (120-450) K/mm3 MPV 11.7 H (7.0-11.0) fl Gran % 88.9 H (50.0-68.0) % Lymph % (Auto) 3.5 L (22.0-35.0) % Smyth % (Auto) 5.8 (1.0-6.0) % Eos % (Auto) 1.6 (1.5-5.0) % Baso % (Auto) 0.2 (0.0-3.0) % Gran # 5.41 (1.4-6.5) Lymph # (Auto) 0.2 L (1.2-3.4) Smyth # (Auto) 0.4 (0.1-0.6) Eos # (Auto) 0.1 (0.0-0.7) Baso # (Auto) 0.01 (0.0-2.0) K/mm3 pO2 49 (30-55) mm/Hg VBG pH 7.46 H (7.32-7.43) VBG pCO2 44.0 (40-60) VBG HCO3 31.3 H (21-28) mmol/l VBG Total CO2 32.7 H (22-28) mmol.L VBG O2 Sat (Calc) 87.8 H (40-65) % VBG Base Excess 6.6 H (0.0-2.0) mmol/L VBG Potassium 3.8 (3.6-5.2) mmol/L Sodium 138.0 139 (132-148) mmol/L Chloride 103.0 99 (98-107) mmol/L Glucose 115 H (65-105) mg/dl Lactate 1.9 (0.7-2.1) mmol/L FiO2 21.0 % Potassium 4.1 (3.6-5.0) mmol/L Carbon Dioxide 29 (21-33) mmol/L Anion Gap 14 (10-20) BUN 15 (7-21) mg/dL Creatinine 3.8 H (0.7-1.2) mg/dl Est GFR ( Amer) 15 Est GFR (Non-Af Amer) 12 Random Glucose 114 H (70-110) mg/dL Calcium 7.9 L (8.4-10.5) mg/dL Phosphorus 4.1 (2.5-4.5) mg/dL Magnesium 1.7 (1.7-2.2) mg/dL Total Bilirubin 0.9 (0.2-1.3) mg/dL Direct Bilirubin (0.0-0.4) mg/dL AST 101 H D (14-36) U/L ALT 36 (7-56) U/L Alkaline Phosphatase 104 (38-126) U/L Total Creatine Kinase (35-230) U/L C-React Prot High Sens (1.00-3.00) mg/L Total Protein 8.1 (5.8-8.3) g/dL Albumin 3.5 (3.0-4.8) g/dL Globulin 4.6 gm/dL Albumin/Globulin Ratio 0.7 L (1.1-1.8) Procalcitonin (0.19-0.49) NG/ML Venous Blood Potassium 3.8 (3.6-5.2) mmol/L Hep Bs Antigen (NEGATIVE) Hep Bs Antibody (NEGATIVE) Hep B Core IgM Ab (NEGATIVE) 01/14/18 01/14/18 01/14/18 Range/Units 07:15 07:15 07:15 WBC (4.5-11.0) 10^3/ul RBC (3.5-6.1) 10^6/uL Hgb (12.0-16.0) g/dL Hct (36.0-48.0) % MCV (80.0-105.0) fl MCH (25.0-35.0) pg MCHC (31.0-37.0) g/dl RDW (11.5-14.5) % Plt Count (120.0-450.0) 10^3/uL Manual Plt Count (120-450) K/mm3 MPV (7.0-11.0) fl Gran % (50.0-68.0) % Lymph % (Auto) (22.0-35.0) % Smyth % (Auto) (1.0-6.0) % Eos % (Auto) (1.5-5.0) % Baso % (Auto) (0.0-3.0) % Gran # (1.4-6.5) Lymph # (Auto) (1.2-3.4) Smyth # (Auto) (0.1-0.6) Eos # (Auto) (0.0-0.7) Baso # (Auto) (0.0-2.0) K/mm3 pO2 (30-55) mm/Hg VBG pH (7.32-7.43) VBG pCO2 (40-60) VBG HCO3 (21-28) mmol/l VBG Total CO2 (22-28) mmol.L VBG O2 Sat (Calc) (40-65) % VBG Base Excess (0.0-2.0) mmol/L VBG Potassium (3.6-5.2) mmol/L Sodium (132-148) mmol/L Chloride (98-107) mmol/L Glucose (65-105) mg/dl Lactate (0.7-2.1) mmol/L FiO2 % Potassium (3.6-5.0) mmol/L Carbon Dioxide (21-33) mmol/L Anion Gap (10-20) BUN (7-21) mg/dL Creatinine (0.7-1.2) mg/dl Est GFR ( Amer) Est GFR (Non-Af Amer) Random Glucose (70-110) mg/dL Calcium (8.4-10.5) mg/dL Phosphorus (2.5-4.5) mg/dL Magnesium (1.7-2.2) mg/dL Total Bilirubin (0.2-1.3) mg/dL Direct Bilirubin (0.0-0.4) mg/dL AST (14-36) U/L ALT (7-56) U/L Alkaline Phosphatase (38-126) U/L Total Creatine Kinase (35-230) U/L C-React Prot High Sens > 15.00 H (1.00-3.00) mg/L Total Protein (5.8-8.3) g/dL Albumin (3.0-4.8) g/dL Globulin gm/dL Albumin/Globulin Ratio (1.1-1.8) Procalcitonin 11.20 H (0.19-0.49) NG/ML Venous Blood Potassium (3.6-5.2) mmol/L Hep Bs Antigen (NEGATIVE) Hep Bs Antibody Indeterminate (NEGATIVE) Hep B Core IgM Ab (NEGATIVE) 01/13/18 Range/Units 18:36 WBC (4.5-11.0) 10^3/ul RBC (3.5-6.1) 10^6/uL Hgb (12.0-16.0) g/dL Hct (36.0-48.0) % MCV (80.0-105.0) fl MCH (25.0-35.0) pg MCHC (31.0-37.0) g/dl RDW (11.5-14.5) % Plt Count (120.0-450.0) 10^3/uL Manual Plt Count (120-450) K/mm3 MPV (7.0-11.0) fl Gran % (50.0-68.0) % Lymph % (Auto) (22.0-35.0) % Smyth % (Auto) (1.0-6.0) % Eos % (Auto) (1.5-5.0) % Baso % (Auto) (0.0-3.0) % Gran # (1.4-6.5) Lymph # (Auto) (1.2-3.4) Smyth # (Auto) (0.1-0.6) Eos # (Auto) (0.0-0.7) Baso # (Auto) (0.0-2.0) K/mm3 pO2 (30-55) mm/Hg VBG pH (7.32-7.43) VBG pCO2 (40-60) VBG HCO3 (21-28) mmol/l VBG Total CO2 (22-28) mmol.L VBG O2 Sat (Calc) (40-65) % VBG Base Excess (0.0-2.0) mmol/L VBG Potassium (3.6-5.2) mmol/L Sodium (132-148) mmol/L Chloride (98-107) mmol/L Glucose (65-105) mg/dl Lactate (0.7-2.1) mmol/L FiO2 % Potassium (3.6-5.0) mmol/L Carbon Dioxide (21-33) mmol/L Anion Gap (10-20) BUN (7-21) mg/dL Creatinine (0.7-1.2) mg/dl Est GFR ( Amer) Est GFR (Non-Af Amer) Random Glucose (70-110) mg/dL Calcium (8.4-10.5) mg/dL Phosphorus (2.5-4.5) mg/dL Magnesium (1.7-2.2) mg/dL Total Bilirubin (0.2-1.3) mg/dL Direct Bilirubin (0.0-0.4) mg/dL AST (14-36) U/L ALT (7-56) U/L Alkaline Phosphatase (38-126) U/L Total Creatine Kinase (35-230) U/L C-React Prot High Sens (1.00-3.00) mg/L Total Protein (5.8-8.3) g/dL Albumin (3.0-4.8) g/dL Globulin gm/dL Albumin/Globulin Ratio (1.1-1.8) Procalcitonin (0.19-0.49) NG/ML Venous Blood Potassium (3.6-5.2) mmol/L Hep Bs Antigen Negative (NEGATIVE) Hep Bs Antibody (NEGATIVE) Hep B Core IgM Ab Negative (NEGATIVE) Laboratory Results - last 24 hr 01/13/18 01/14/18 01/14/18 18:36 07:15 07:15 WBC RBC Hgb Hct MCV MCH MCHC RDW Plt Count Manual Plt Count MPV Gran % Lymph % (Auto) Smyth % (Auto) Eos % (Auto) Baso % (Auto) Gran # Lymph # (Auto) Smyth # (Auto) Eos # (Auto) Baso # (Auto) pO2 VBG pH VBG pCO2 VBG HCO3 VBG Total CO2 VBG O2 Sat (Calc) VBG Base Excess VBG Potassium Sodium Chloride Glucose Lactate FiO2 Potassium Carbon Dioxide Anion Gap BUN Creatinine Est GFR ( Amer) Est GFR (Non-Af Amer) Random Glucose Calcium Phosphorus Magnesium Total Bilirubin Direct Bilirubin AST ALT Alkaline Phosphatase Total Creatine Kinase C-React Prot High Sens Total Protein Albumin Globulin Albumin/Globulin Ratio Procalcitonin 11.20 H Venous Blood Potassium Hep Bs Antigen Negative Hep Bs Antibody Indeterminate Hep B Core IgM Ab Negative 01/14/18 01/14/18 01/14/18 07:15 16:39 16:39 WBC 6.1 D RBC 2.78 L Hgb 8.7 L Hct 28.3 L MCV 101.8 MCH 31.3 MCHC 30.7 L RDW 15.3 H Plt Count 83 L Manual Plt Count MPV 11.7 H Gran % 88.9 H Lymph % (Auto) 3.5 L Smyth % (Auto) 5.8 Eos % (Auto) 1.6 Baso % (Auto) 0.2 Gran # 5.41 Lymph # (Auto) 0.2 L Smyth # (Auto) 0.4 Eos # (Auto) 0.1 Baso # (Auto) 0.01 pO2 VBG pH VBG pCO2 VBG HCO3 VBG Total CO2 VBG O2 Sat (Calc) VBG Base Excess VBG Potassium Sodium 139 Chloride 99 Glucose Lactate FiO2 Potassium 4.1 Carbon Dioxide 29 Anion Gap 14 BUN 15 Creatinine 3.8 H Est GFR ( Amer) 15 Est GFR (Non-Af Amer) 12 Random Glucose 114 H Calcium 7.9 L Phosphorus 4.1 Magnesium 1.7 Total Bilirubin 0.9 Direct Bilirubin AST 101 H D ALT 36 Alkaline Phosphatase 104 Total Creatine Kinase C-React Prot High Sens > 15.00 H Total Protein 8.1 Albumin 3.5 Globulin 4.6 Albumin/Globulin Ratio 0.7 L Procalcitonin Venous Blood Potassium Hep Bs Antigen Hep Bs Antibody Hep B Core IgM Ab 01/14/18 01/15/18 01/15/18 16:39 06:00 06:00 WBC 5.3 RBC 2.74 L Hgb 8.5 L Hct 27.8 L MCV 101.5 MCH 31.0 MCHC 30.6 L RDW 15.4 H Plt Count 86 L Manual Plt Count 100 L MPV 11.5 H Gran % 76.1 H Lymph % (Auto) 10.0 L Smyth % (Auto) 9.6 H Eos % (Auto) 4.1 Baso % (Auto) 0.2 Gran # 4.04 Lymph # (Auto) 0.5 L Smyth # (Auto) 0.5 Eos # (Auto) 0.2 Baso # (Auto) 0.01 pO2 49 VBG pH 7.46 H VBG pCO2 44.0 VBG HCO3 31.3 H VBG Total CO2 32.7 H VBG O2 Sat (Calc) 87.8 H VBG Base Excess 6.6 H VBG Potassium 3.8 Sodium 138.0 140 Chloride 103.0 104 Glucose 115 H Lactate 1.9 FiO2 21.0 Potassium 4.1 Carbon Dioxide 28 Anion Gap 12 BUN 29 H Creatinine 5.6 H Est GFR ( Amer) 10 Est GFR (Non-Af Amer) 8 Random Glucose 88 Calcium 7.3 L Phosphorus 5.8 H Magnesium 1.8 Total Bilirubin 0.6 Direct Bilirubin 0.6 H AST 105 H ALT 42 Alkaline Phosphatase 96 Total Creatine Kinase C-React Prot High Sens Total Protein 7.1 Albumin 3.0 Globulin 4.1 Albumin/Globulin Ratio 0.7 L Procalcitonin Venous Blood Potassium 3.8 Hep Bs Antigen Hep Bs Antibody Hep B Core IgM Ab 01/15/18 08:05 WBC RBC Hgb Hct MCV MCH MCHC RDW Plt Count Manual Plt Count MPV Gran % Lymph % (Auto) Smyth % (Auto) Eos % (Auto) Baso % (Auto) Gran # Lymph # (Auto) Smyth # (Auto) Eos # (Auto) Baso # (Auto) pO2 VBG pH VBG pCO2 VBG HCO3 VBG Total CO2 VBG O2 Sat (Calc) VBG Base Excess VBG Potassium Sodium Chloride Glucose Lactate FiO2 Potassium Carbon Dioxide Anion Gap BUN Creatinine Est GFR ( Amer) Est GFR (Non-Af Amer) Random Glucose Calcium Phosphorus Magnesium Total Bilirubin Direct Bilirubin AST ALT Alkaline Phosphatase Total Creatine Kinase 70 C-React Prot High Sens Total Protein Albumin Globulin Albumin/Globulin Ratio Procalcitonin Venous Blood Potassium Hep Bs Antigen Hep Bs Antibody Hep B Core IgM Ab Critical Care Progress Note - Nutrition Nutrition: Nutrition Category Date Time Status Renal Diet [DIET] Diets 01/13/18 Dinner Ordered Assessment/Plan - Assessment and Plan (Free Text) Assessment: Patient seen and examined on rounds, agree with note with following additions/ exceptions: Patient is 57yo female with PMHx of ESRD on HD, HIV on HAART, CAD s/p PCI, CHF, admitted to ICU for septic/hypovolumic shock. Currently afebrile, BP stble SBP ranging 85-95, AAOx3, in NAD. Labs, imaging, chart reviewed. Infectious workup thus far negative, CT C/A/P negative for infectious process. On broad spectrum abx, ID following. Severe Sepsis Hypovolumia ESRD on HD HIV on HAART Recommend: - supp o2 as needed, Duonebs PRN, IS - broad spectrum abx as per ID, MErrem, Vanco after HD, follow up cultures - cont with HAART as per ID - medical management of CAD as per cardio - cont with midodrine 10mg TID - HD as per renal, would hold off taking off further volume - monitor LFTs - FS control - GI ppx - DVT ppx - Monitor in MICU Critical care time 35 minutes
[2018-01-15 07:18] LABS: ALB/GLOB RATIO 0.7 (1.1-1.8); BILIRUBIN,DIRECT 0.6 mg/dL (0.0-0.4); CALCIUM 7.3 mg/dL (8.4-10.5)
[2018-01-15] MEDS: NOREPINEPHRINE BIT/0.9 % NACL 4 MG/250 ML BAG IV PRN (07:50)
[2018-01-15] MEDS: Multivitamin Therapeutic Tab PO SCH (09:20)
[2018-01-15] MEDS: Atovaquone 750 mg/5 ml Susp UD PO SCH ×2 (09:37→18:12)
[2018-01-15] MEDS: Omega-3-Acid Ethyl Esters 1 GM Cap PO SCH ×2 (09:37→18:12)
[2018-01-15] MEDS: POLYETHYLENE GLYCOL 3350 17 GM/Dose PACKET PO SCH ×2 (09:37→18:12)
[2018-01-15] MEDS: Lidocaine 5% Patch TD SCH (12:03)
--- NOTE | 2018-01-15 13:57 | CP.PCM.PN ---
Subjective - Date & Time of Evaluation Date of Evaluation: 01/15/18 Time of Evaluation: 09:56 - Subjective Subjective: Joshua Greene PGY2 IM Progress Note for Dr. Rubalcava Patient was seen and examined at bedside in ICU. She is sitting up in the chair out of bed and denies any weakness, chest pain, shortness of breath, fevers/ chills, nausea/vomiting, or abdominal pain. Levophed was continued overnight, however was not running this morning. MAA remains in range of 60-65. There are no other overnight events. Blood culture shows no growth after 48 hours, preliminary reading. Cardiology and ID are following. Objective - Vital Signs/Intake and Output Vital Signs (last 24 hours): Temp Pulse Resp BP Pulse Ox 97.6 F 76 12 86/33 L 100 01/15/18 08:09 01/15/18 11:10 01/15/18 11:10 01/15/18 10:30 01/15/18 11:10 Intake and Output: 01/15/18 01/15/18 06:59 18:59 Intake Total 140.5 15 Balance 140.5 15 - Medications Medications: Current Medications Abacavir Sulfate (Ziagen) 300 mg PO BID [facility] PRN Reason: Protocol Last Admin: 01/15/18 09:38 Dose: Not Given Acetaminophen (Tylenol 325mg Tab) 650 mg PO Q6 PRN PRN Reason: TEMP>=99.5F Last Admin: 01/13/18 15:32 Dose: 650 mg Acetaminophen (Tylenol 650 Mg Supp) 650 mg RC Q6H PRN PRN Reason: TEMP>=99.5F Acetaminophen (Tylenol 325mg Tab) 650 mg PO Q4H PRN PRN Reason: Fever >100.4 F Acetylcysteine (Acetylcysteine 20%) 4 ml IH [id number] [facility] Last Admin: 01/15/18 13:03 Dose: Not Given Aspirin (Ecotrin) 81 mg PO DAILY [facility] Last Admin: 01/15/18 09:21 Dose: 81 mg Atorvastatin Calcium (Lipitor) 40 mg PO DIN [facility] Last Admin: 01/14/18 17:56 Dose: 40 mg Atovaquone (Mepron) 750 mg PO BID [facility] PRN Reason: Protocol Last Admin: 01/15/18 09:37 Dose: Not Given Calcium Acetate (Phoslo) 1,334 mg PO TID [facility] Last Admin: 01/15/18 09:20 Dose: 1,334 mg Diphenhydramine HCl (Benadryl) 25 mg IVP Q8H PRN PRN Reason: Allergy symptoms Docusate Sodium (Colace) 100 mg PO TID [facility] Last Admin: 01/15/18 09:36 Dose: Not Given Ergocalciferol (Drisdol 50,000 Intl Units Cap) 1 cap PO Q7D [facility] Folic Acid (Folic Acid) 1 mg PO DAILY [facility] Last Admin: 01/15/18 09:20 Dose: 1 mg Sodium Chloride (Sodium Chloride 0.9%) 1,000 mls @ 10 mls/hr IV .Q24H [facility] Last Admin: 01/14/18 14:11 Dose: 10 mls/hr Meropenem 500 mg/ Sodium (Chloride) 50 mls @ 100 mls/hr IVPB 1800 DOUGLAS PRN Reason: Protocol Stop: 01/21/18 06:01 Last Admin: 01/14/18 17:55 Dose: 100 mls/hr Acetaminophen (Ofirmev) 1,000 mg in 100 mls @ 400 mls/hr IVPB Q8 PRN PRN Reason: Mild/Moderate Pain 1-7; Fever Stop: 01/15/18 22:01 Lamivudine (Epivir) 150 mg PO MWF [facility] PRN Reason: Protocol Levalbuterol HCl (Xopenex) 0.63 mg IH [id number] [facility] Last Admin: 01/15/18 13:04 Dose: Not Given Levothyroxine Sodium (Synthroid) 25 mcg PO 0600 [facility] Last Admin: 01/15/18 06:08 Dose: 25 mcg Lidocaine (Lidoderm) 1 ea TD DAILY [facility] Last Admin: 01/14/18 21:45 Dose: Not Given Metoclopramide HCl (Reglan) 5 mg IVP Q6H [facility] Last Admin: 01/15/18 09:15 Dose: Not Given Midodrine (Proamatine) 10 mg PO TID [facility] Last Admin: 01/15/18 09:20 Dose: 10 mg Multivitamins (Thera Tab) 1 tab PO DAILY [facility] Last Admin: 01/15/18 09:20 Dose: 1 tab Darunavir Ethanolate [Prezista] 800 Mg ( Home Med) [address] [facility] Last Admin: 01/14/18 22:29 Dose: Not Given [id number] Ethyl Esters (Lovaza) 1 gm PO BID [facility] Last Admin: 01/15/18 09:37 Dose: Not Given Ondansetron HCl (Zofran Inj) 4 mg IVP Q4H PRN PRN Reason: Nausea/Vomiting Pantoprazole Sodium (Protonix Inj) 40 mg IVP Q12 [facility] Last Admin: 01/15/18 09:20 Dose: 40 mg Polyethylene Glycol (Miralax) 17 gm PO BID [facility] Last Admin: 01/15/18 09:37 Dose: Not Given Ritonavir (Norvir) 100 mg PO HS [facility] PRN Reason: Protocol Last Admin: 01/14/18 22:21 Dose: Not Given Tramadol HCl (Ultram) 50 mg PO Q8H PRN PRN Reason: Pain, moderate (4-7) - Labs Labs: 01/15/18 06:00 01/15/18 06:00 PT 12.0 SECONDS (9.4-12.5) 01/13/18 07:12 INR 1.04 01/13/18 07:12 APTT 34.7 Seconds (25.1-36.5) 01/13/18 07:12 - Constitutional Appears: Well, Non-toxic, No Acute Distress - Head Exam Head Exam: NORMAL INSPECTION - Eye Exam Eye Exam: Normal appearance - ENT Exam ENT Exam: Mucous Membranes Moist - Neck Exam Neck Exam: Normal Inspection - Respiratory Exam Respiratory Exam: NORMAL BREATHING PATTERN. absent: Wheezes, Respiratory Distress - Cardiovascular Exam Cardiovascular Exam: RRR, +S1, +S2 - GI/Abdominal Exam GI & Abdominal Exam: Soft, Normal Bowel Sounds. absent: Distended, Guarding, Tenderness - Extremities Exam Extremities Exam: Normal Inspection - Back Exam Back Exam: NORMAL INSPECTION - Neurological Exam Neurological Exam: Alert, Awake, CN II-XII Intact, Oriented x3 - Psychiatric Exam Psychiatric exam: Normal Mood - Skin Skin Exam: Warm Assessment and Plan - Assessment and Plan (Free Text) Assessment: 57-year-old -Citizen Of [place] female with a PMH of HIV (last known viral load of 6.4 log copies, CD4 79 and 09/2017), ischemic dilated cardiomyopathy, ESRD on HD (M/W/F), CAD with multiple stents in the past, medication noncompliance, chronic anemia, secondary hyperparathyroidism, hypothyroidism who is being monitored in the ICU following [employer] for fevers and hypotension during dialysis post left heart catheterization. SIRS criteria is met, and infectious causes are being ruled out. The patient has not been febrile and more than 24 hours, and BP is improving off of pressor support. Plan: SIRS, rule out sepsis in noncompliant HIV patient - Monitor off of pressor support - If BP is stable, follow cardiology recommendations regarding transport from ICU - Continue abacavir, lamivudine, darunavir and ritonavir - Continue meropenem and Mepron empirically - Monitor for any fevers - Tylenol PRN fevers - Blood cultures negative 48 hours, awaiting final report - ID following, recs appreciated - No leukocytosis noted, continue to monitor - Procalcitonin 11, noncontributory due to renal failure on HD, per ID - Reeducate patient about importance of adherence to HIV medications ESRD on HD -Last dialysis 01/14/18 - Nephrology following, recs appreciated - Continue folic acid - Continue ergocalciferol - Continue PhosLo Hx HLD - Continue Lipitor and Lovaza Hx ischemic CM - Post catheterization, 50% stenosis mid LAD and EF 40-45% - Continue aspirin - Cardiology following, recs appreciated Hx hypothyroidism - Continue Synthroid Case was reviewed and discussed with attending, Dr. Gini Greene PGY2
[2018-01-15] MEDS: Sodium Chloride 0.9% 1,000 ML IV SCH (15:07)
--- NOTE | 2018-01-15 15:21 | PN ---
DATE: 01/15/2018 SUBJECTIVE: The patient was in seen in 128, bed 2 this morning. No fevers, no chills. She is awake and alert. PHYSICAL EXAMINATION: VITAL SIGNS: Temperature is 98, T-max was 100.8 yesterday and earlier was 102, blood pressure is 112/60, respiratory rate of 18, heart rate of 98. HEENT: Unremarkable. NECK: Supple. LUNGS: Decreased breath sounds. HEART: Normal S1, S2. ABDOMEN: Soft, nontender. LABORATORY EXAMINATION: Reveals the patient's white count of 5.3. The patient did have 21% bandemia, hemoglobin of 8, and platelets are noted at 100,000. Coagulation is noted. Chemistries reveal a BUN of 29, creatinine of 5.6. Serology is reviewed. Microbiology reveals the blood cultures are negative. The patient's procalcitonin is 11.2. ASSESSMENT AND PLAN: A 57-year-old female with positive human immunodeficiency virus and acquired immune deficiency syndrome with noncompliance of her human immunodeficiency virus medications; chronic renal failure, on hemodialysis; coronary artery disease; history of urinary tract infection; history of esophageal variceal ulcers; erosive gastritis; history of cholecystectomy; and hypertension; admitted with shortness of breath, chest pain with systemic inflammatory response syndrome, on IV vancomycin and meropenem, and elevated procalcitonin. The patient had a CAT scan of the chest and abdomen. No acute findings. On CAT scan of the chest, the lungs are clear. No evidence of pneumonia. Blood cultures are reported to be negative. Procalcitonin of 11 is noncontributory in phase of a creatinine elevation, renal failure on hemodialysis. We will check on the final cultures. The patient is currently on intermittent vancomycin and meropenem. Did have a temperature of 102 yesterday. The patient had a detectable viral load of log of 6.4 and that was from 09/2017. We will follow closely with you. She admits noncompliance to her medications. Reeducate her concerns about importance of adherence to her HIV medications. Meliton Rodriguez MD
--- NOTE | 2018-01-15 15:52 | PN ---
DATE: 01/15/2018 CARDIOLOGY FOLLOWUP SUBJECTIVE: The patient is awake, alert, in a chair without shortness of breath, without chest pain. PHYSICAL EXAMINATION: VITAL SIGNS: Blood pressure is 90 systolic, heart rate is stable. NECK: Negative JVD. LUNGS: Without rales. HEART: Reveals S1, S2. EXTREMITIES: Without edema. LABORATORY DATA: Noted. The hemoglobin is 8.5. Chemistries, BUN and creatinine as stated. IMPRESSION: 1. Transient hypotension, likely secondary to multiple dialysis as well as cardiac catheterization. 2. A 50% stenoses in the mid left anterior descending by catheterization. 3. End-stage renal disease. 4. Hypercholesterolemia. Given these findings, the patient is doing well. She is off pressors. From a cardiac perspective, the patient can be transferred to a Med-Surg floor. Derrick Tran MD
--- NOTE | 2018-01-15 17:09 | PN ---
DATE: 01/15/2018 SUBJECTIVE: The patient is seen in ICU bed 2. The patient is out of bed to chair. The patient is alert, awake, responsive. The patient's IV Levophed was stopped this morning. PHYSICAL EXAMINATION: VITAL SIGNS: The patient's blood pressure on the telemetry monitoring is 86/33 and blood pressure after stopping Levophed has been running around systolic 80s. Heart rate 98, 96, 94; respirations 17, 18, 25, 29, 28; O2 sat is 99-100%. HEENT: The patient's head examination normocephalic, atraumatic. HEENT examination shows positive frontal alopecia. Pale conjunctivae. Anicteric sclerae. No oropharyngeal lesion. No neck rigidity. Positive right upper chest dialysis catheter. CHEST: Kyphosis. LUNGS: Shows no rales, crackles or wheezing. CARDIOVASCULAR: S1, S2, regular rhythm. Positive systolic murmur, left sternal border, right second intercostal space, left second intercostal space. GENITALIA: Female. RECTAL: Deferred. EXTREMITY: Shows no pitting edema, no calf tenderness, no Homans' sign. Positive left upper extremity AV fistula. Lower extremity shows no pitting edema, no calf tenderness, no Homans' sign. NEUROLOGICAL: The patient is alert, awake, oriented x3. Cranial nerves II through XII grossly intact. Gait examination is not tested. VASCULAR: Palpable pulses. DIAGNOSTICS: On 01/15/2018, WBC 5.3, hemoglobin and hematocrit 8.5 and 27.8, platelet 100,000. Chemistry shows sodium 140, potassium 4.1, chloride 104, CO2 of 28, anion gap 12, BUN 29, creatinine 5.6, calcium 7.3, phosphorus 5.8, AST 105. Microbiology cultures negative. IMPRESSION AND PLAN: 1. Systemic inflammatory response syndrome with high-grade fever of greater than 102 degrees Fahrenheit with tachycardia, tachypnea. 2. Systemic inflammatory response syndrome. 3. Hyperprocalcitoninemia. 4. Advanced human immunodeficiency virus, acquired immune deficiency syndrome with severe CD-4 lymphopenia. 5. Poor compliance and noncompliance with antiretroviral therapy. 6. Status post cardiac catheterization. 7. Multivessel coronary artery disease. 8. Ischemic cardiomyopathy with left ventricular ejection fraction around 45%. 9. CD-4 lymphopenia. 10. Refractory hypotension and IV Levophed-dependent hypotension. 11. Right colonic fecal stasis and constipation. 12. Narcotic seeking behavior. 13. Leukopenia, anemia, thrombocytopenia, pancytopenia and granulocytosis and bandemia. 14. End-stage renal disease, hemodialysis dependent three times a week. 15. Hypocalcemia. 16. Hyperphosphatemia with secondary hyperparathyroidism. 17. Transaminitis. 18. Secondary hyperparathyroidism with elevated PTH level of 233. 19. Elevated C-reactive protein of greater than 15. 20. Hyperlipidemia, hypertriglyceridemia. 21. Poor compliance. 22. History of hypothyroidism. 23. History of pneumonia. 24. Musculoskeletal pain syndrome with narcotic seeking behavior. 25. Constipation. 26. Hypovitaminosis D. 27. Gastroparesis. 28. Hypothyroidism. Plan at this time, the patient will be observed off IV Levophed. If the patient's blood pressure stays at least around 90 mmHg systolic, the patient will be considered for transfer out of the ICU. The patient has been ordered serial labs. CURRENT CONSULTATION: Cardiology, Infectious Disease, Nephrology and Gastroenterology. CURRENT MEDICATIONS: IV acetaminophen 1000 mg IV every 8 hours, Mucomyst nebulizer every 6 hours 4 mL 20% every 6 hours with Xopenex nebulizer 0.63 mg. The patient is on Benadryl 25 mg IV every 8 hours p.r.n.; Colace 100 mg three times a day; Prezista 800 mg at bedtime; Drisdol 50,000 units weekly; Ecotrin 81 mg daily; Epivir 150 mg Friday, Friday and Friday; folic acid 1 mg daily; Lidoderm 5% patch to the affected area of pain; Lipitor 40 mg daily; Lovaza 1 g twice a day; Mepron 750 twice a day; meropenem 500 IV daily; MiraLax 17 g twice a day; Norvir 100 mg at bedtime; PhosLo 1334 mg three times a day; ProAmatine 10 mg three times a day; Protonix 40 mg IV every 12; Reglan 5 mg IV every 6; Synthroid 25 mcg daily; multivitamin 1 tablet daily; Tylenol 650 every 6 p.r.n.; Ultram 50 every 8 hours p.r.n.; Xopenex nebulizer 0.63 mg every 6 hours; abacavir 300 mg twice a day; Zofran 4 mg IV every 4 p.r.n.; oxygen nasal cannula 2 L. Renal diet, out of bed, SCDs, HUNTER stockings ordered. The patient updated about her condition, diagnoses, treatment plan, management plan at length and all questions concerned answered, which she acknowledged and understood. Dictated and electronically signed, not read. Ranjith Rubalcava MD
[2018-01-15] MEDS ORDERED: Morphine 2 mg/ml ISec IVP STA (18:10)
[2018-01-15] MEDS: Meropenem 500 MG in Sodium Chloride 0.9% 50 ML IVPB SCH (18:12)
[2018-01-15] MEDS: DiphenhydrAMINE 50 mg/ml Inj IVP PRN (18:28)
[2018-01-15] MEDS: DARUNAVIR ETHANOLATE 800 MG PO SCH (21:38)
[2018-01-15] MEDS ORDERED: DiphenhydrAMINE 50 mg/ml Inj IVP ONE (22:47)
[2018-01-16] MEDS: Levalbuterol 0.63 MG/3 ML Inhal Soln UD IH SCH ×4 (01:24→20:03)
[2018-01-16] MEDS: Acetylcysteine 20% Inhal Soln (4ml) IH SCH ×4 (01:26→20:03)
--- NOTE | 2018-01-16 03:23 | PN ---
DATE: 01/15/2018 SUBJECTIVE: The patient is seen lying in bed in the ICU. She is awake. She is alert. She reports feeling better. She still has cough. She still has some shortness of breath. She did report that she is bringing up very little phlegm. She denies any chest pain. She denies any nausea or vomiting. She complains of diffuse abdominal pain. PHYSICAL EXAMINATION GENERAL: Middle-aged lady lying in bed in the ICU. VITAL SIGNS: Blood pressure 101/53, heart rate 78 per minute, respiratory rate 22, temperature 97.6, T-max is 102. HEENT: Normocephalic, atraumatic, positive pallor. NECK: Supple, no JVD. LUNGS: Bilateral equal air entry, bilateral equal expansion. No rales. CARDIAC: S1 and S2, regular rate and rhythm, no murmur, no rub. ABDOMEN: Distended, soft, positive diffuse tenderness, bowel sounds present. EXTREMITIES: No lower extremity edema. INTAKE AND OUTPUT: /not charted. LABORATORY DATA: Hemoglobin 8.5, hematocrit 27.8, platelets 86. Sodium 140, potassium 4.1, chloride 104, CO2 of 28, BUN 29, creatinine 5.6, glucose 88, calcium 7.3, phosphorus 5.8, magnesium 1.8. AST 105, ALT 42, albumin 3 Blood culture no growth. CURRENT MEDICATIONS: Mucomyst, Benadryl, Colace, Drisdol, aspirin, folic acid, Lipitor, meropenem 500 every 12 hours, MiraLax, PhosLo, ProAmatine, Protonix, Reglan, normal saline at 10 mL./hour, Synthroid, Xopenex. ASSESSMENT: 1. Systemic inflammatory response syndrome, high-grade fever, hypotension, acidosis. 2. Source of sepsis unclear. 3. Anemia. 4. End-stage renal disease. 5. Coronary artery disease. 6. End-stage renal disease. 7. Recent cardiac catheterization. 8. Human immunodeficiency virus/acquired immunodeficiency syndrome. 9. Recurrent abdominal pain. 10. History of bo esophagitis. PLAN: 1. The patient is now off pressors, blood pressure is improving. 2. Continue empiric antibiotics. 3. The patient is noncompliant with her antiretrovirals. 4. Dialysis tomorrow. 5. We will try to ultrafiltrate on dialysis tomorrow, the patient appears to be volume overloaded. 6. Case discussed with ICU nursing staff, case discussed with the patient at bedside. More than 35 minutes spent in the care of this patient. Meryl Shukla MD
[2018-01-16] MEDS: Levothyroxine 25 MCG TAB PO SCH (05:47)
[2018-01-16] MEDS: DiphenhydrAMINE 50 mg/ml Inj IVP PRN ×2 (05:48→16:44)
[2018-01-16 06:37] LABS: BASO # 0.01 K/mm3 (0.0-2.0); BASO % 0.2 % (0.0-3.0); EOS # 0.2 (0.0-0.7); GRAN # 4.5 (1.4-6.5); GRAN % 75.7 % (50.0-68.0); HEMOGLOBIN 8.2 g/dL (12.0-16.0); LYMPH # 0.7 (1.2-3.4); LYMPH % 12.5 % (22.0-35.0); MEAN CELL VOLUME 100.8 fl (80.0-105.0); MEAN CORPUSCULAR HEMOGLOBIN 31.1 pg (25.0-35.0); MEAN CORPUSCULAR HGB CONC 30.8 g/dl (31.0-37.0); MEAN PLATELET VOLUME 10.8 fl (7.0-11.0); MONO # 0.5 (0.1-0.6); MONO % 7.6 % (1.0-6.0); RBC 2.64 10^6/uL (3.5-6.1); RED CELL DISTRIBUTION WIDTH 15.3 % (11.5-14.5); WHITE BLOOD COUNT 5.9 10^3/ul (4.5-11.0)
[2018-01-16 07:04] LABS: ALB/GLOB RATIO 0.7 (1.1-1.8); ALBUMIN 3.1 g/dL (3.0-4.8); BILIRUBIN,DIRECT 0.6 mg/dL (0.0-0.4); CALCIUM 8.1 mg/dL (8.4-10.5)
[2018-01-16] MEDS: Lidocaine 5% Patch TD SCH (10:00)
[2018-01-16] MEDS: POLYETHYLENE GLYCOL 3350 17 GM/Dose PACKET PO SCH ×2 (10:00→17:08)
[2018-01-16] MEDS: Atovaquone 750 mg/5 ml Susp UD PO SCH ×2 (10:00→17:08)
[2018-01-16] MEDS: Omega-3-Acid Ethyl Esters 1 GM Cap PO SCH ×2 (10:05→18:33)
[2018-01-16] MEDS: Multivitamin Therapeutic Tab PO SCH (10:05)
--- NOTE | 2018-01-16 10:53 | CP.CCUPN ---
<Silvio Britt - Last Filed: 01/16/18 11:39> CCU Subjective - Physician Review Subjective (Free Text): Silvio Britt DO PGY1 - Internal Medicine Certified Medical Asst - ICU Progress Note Seen and examined at bedside this AM Per overnight report; patient was asking for narcotic Rx No complaints this AM 12 system ROS is negative at this time 01/16/18 11:40 CCU Objective - Vital Signs / Intake & Output Vital Signs (Last 4 hours): Vital Signs Pulse Resp BP 01/16/18 09:28 90 23 01/16/18 09:27 86 21 01/16/18 09:26 89 19 01/16/18 09:25 86 19 01/16/18 09:24 85 16 01/16/18 09:23 89 22 01/16/18 09:22 90 18 01/16/18 09:21 89 20 01/16/18 09:20 89 25 H 01/16/18 09:19 90 19 01/16/18 09:18 88 28 H 01/16/18 09:17 85 23 01/16/18 09:16 85 19 01/16/18 09:15 87 01/16/18 09:14 86 20 01/16/18 09:13 82 15 01/16/18 09:12 85 01/16/18 09:11 82 21 01/16/18 09:10 85 01/16/18 09:09 85 19 01/16/18 09:08 85 17 01/16/18 09:07 87 33 H 01/16/18 09:06 90 13 01/16/18 09:05 86 23 01/16/18 09:04 89 26 H 01/16/18 09:03 87 28 H 01/16/18 09:02 86 25 H 01/16/18 09:01 86 22 01/16/18 09:00 134/67 01/16/18 08:59 83 28 H 01/16/18 08:58 87 16 01/16/18 08:57 83 28 H 01/16/18 08:56 85 23 01/16/18 08:55 83 16 01/16/18 08:54 81 18 01/16/18 08:53 85 22 01/16/18 08:52 84 20 01/16/18 08:51 86 20 01/16/18 08:50 84 21 01/16/18 08:49 82 16 01/16/18 08:48 86 20 01/16/18 08:47 83 26 H 01/16/18 08:46 86 17 01/16/18 08:45 85 18 01/16/18 08:44 91 H 01/16/18 08:43 89 21 01/16/18 08:42 86 17 01/16/18 08:41 88 25 H 01/16/18 08:40 89 24 01/16/18 08:39 87 17 Intake and Output (Last 8hrs): Intake & Output 01/15/18 01/16/18 01/16/18 22:59 06:59 14:59 Intake Total 750 560 Balance 750 560 Intake: IV 190 Right Wrist 190 Oral 560 560 Other: # Bowel Movements 0 0 - Physical Exam Head: Positive for: Atraumatic, Normocephalic Pupils: Positive for: PERRL Extroacular Muscles: Positive for: EOMI Conjunctiva: Positive for: Normal Mouth: Positive for: Moist Mucous Membranes Respiratory/Chest: Positive for: Other (CRAKCLES BL; RML, RLL, LLL ). Negative for: Clear to Auscultation, Respiratory Distress, Accessory Muscle Use Cardiovascular: Positive for: Regular Rate and Rhythm, Normal S1, S2. Negative for: Murmurs Abdomen: Positive for: Tenderness (diffusely tender), Normal Bowel Sounds, Other (Patient verbalizes pain however does not appear to be guarding; abdomen is not rigid ; No changes from day prior ). Negative for: Distention, Peritoneal Signs, Guarding Upper Extremity: Positive for: Normal Inspection. Negative for: Edema Lower Extremity: Positive for: Normal Inspection, NORMAL PULSES (2+ DP/TP BL ). Negative for: Edema Neurological: Positive for: GCS=15, CN II-XII Intact Skin: Positive for: Warm, Dry, Normal Color Psychiatric: Positive for: Alert, Oriented x 3 - Medications Active Medications: Active Medications Generic Name Dose Route Start Last Admin Trade Name Freq PRN Reason Stop Dose Admin Abacavir Sulfate 300 mg 01/13/18 11:30 01/15/18 18:13 Ziagen PO Not Given BID [facility] Protocol Acetaminophen 650 mg 01/13/18 11:12 01/13/18 15:32 Tylenol 325mg Tab PO 650 mg Q6 PRN Administration TEMP>=99.5F Acetaminophen 650 mg 01/13/18 11:12 Tylenol 650 Mg Supp RC Q6H PRN TEMP>=99.5F Acetaminophen 650 mg 01/13/18 11:17 Tylenol 325mg Tab PO Q4H PRN Fever >100.4 F Acetylcysteine 4 ml 01/13/18 14:00 01/16/18 07:33 Acetylcysteine 20% IH Not Given [id number] DOUGLAS Aspirin 81 mg 01/13/18 11:15 01/15/18 09:21 Ecotrin PO 81 mg DAILY DOUGLAS Administration Atorvastatin Calcium 40 mg 01/13/18 17:00 01/15/18 18:12 Lipitor PO 40 mg DIN DOUGLAS Administration Atovaquone 750 mg 01/13/18 11:30 01/15/18 18:12 Mepron PO Not Given BID [facility] Protocol Calcium Acetate 1,334 mg 01/13/18 14:00 01/16/18 10:00 Phoslo PO 1,334 mg TID DOUGLAS Administration Diphenhydramine HCl 25 mg 01/15/18 08:07 01/16/18 05:48 Benadryl IVP 25 mg Q8H PRN Administration Allergy symptoms Docusate Sodium 100 mg 01/13/18 14:00 01/16/18 10:08 Colace PO Not Given TID [facility] Ergocalciferol 1 cap 01/13/18 11:30 Drisdol 50,000 Intl Units Cap PO Q7D [facility] Folic Acid 1 mg 01/14/18 10:00 01/15/18 09:20 Folic Acid PO 1 mg DAILY DOUGLAS Administration Sodium Chloride 1,000 mls @ 10 mls/hr 01/13/18 11:15 01/15/18 15:07 Sodium Chloride 0.9% IV 10 mls/hr .Q24H DOUGLAS Administration Meropenem 500 mg/ Sodium 50 mls @ 100 mls/hr 01/14/18 10:26 01/15/18 18:12 Chloride IVPB 01/21/18 06:01 100 mls/hr 1800 DOUGLAS Administration Protocol Lamivudine 150 mg 01/16/18 10:00 Epivir PO MWF [facility] Protocol Levalbuterol HCl 0.63 mg 01/13/18 14:00 01/16/18 07:33 Xopenex IH Not Given [id number] [facility] Levothyroxine Sodium 25 mcg 01/14/18 06:00 01/16/18 05:47 Synthroid PO 25 mcg 0600 DOUGLAS Administration Lidocaine 1 ea 01/14/18 21:30 01/15/18 12:03 Lidoderm TD Not Given DAILY DOUGLAS Metoclopramide HCl 5 mg 01/13/18 20:15 01/16/18 08:12 Reglan IVP 5 mg Q6H DOUGLAS Administration Midodrine 10 mg 01/14/18 19:32 01/16/18 10:03 Proamatine PO 10 mg TID DOUGLAS Administration Multivitamins 1 tab 01/13/18 11:30 01/16/18 10:05 Thera Tab PO 1 tab DAILY DOUGLAS Administration Darunavir Ethanolate 800 mg 01/14/18 06:32 01/15/18 21:38 [Prezista] 800 Mg ( PO Not Given Home Med) HS DOUGLAS Rhgql-3-[id number] Ethyl Esters 1 gm 01/13/18 11:30 01/16/18 10:05 Lovaza PO 1 gm BID DOUGLAS Administration Ondansetron HCl 4 mg 01/13/18 11:12 01/16/18 02:57 Zofran Inj IVP 4 mg Q4H PRN Administration Nausea/Vomiting Pantoprazole Sodium 40 mg 01/13/18 11:15 01/16/18 10:05 Protonix Inj IVP 40 mg Q12 DOUGLAS Administration Polyethylene Glycol 17 gm 01/13/18 18:00 01/15/18 18:12 Miralax PO Not Given BID DOUGLAS Ritonavir 100 mg 01/14/18 22:00 01/15/18 21:33 Norvir PO 100 mg HS DOUGLAS Administration Protocol Tramadol HCl 50 mg 01/14/18 20:59 Ultram PO Q8H PRN Pain, moderate (4-7) - Patient Studies Lab Studies: Microbiology Studies 01/13/18 19:40 Blood Culture - Preliminary Blood NO GROWTH AFTER 48 HOURS Lab Studies 01/16/18 01/16/18 01/14/18 Range/Units 05:50 05:50 07:15 WBC 5.9 (4.5-11.0) 10^3/ul RBC 2.64 L (3.5-6.1) 10^6/uL Hgb 8.2 L (12.0-16.0) g/dL Hct 26.6 L (36.0-48.0) % MCV 100.8 (80.0-105.0) fl MCH 31.1 (25.0-35.0) pg MCHC 30.8 L (31.0-37.0) g/dl RDW 15.3 H (11.5-14.5) % Plt Count 80 L (120.0-450.0) 10^3/uL Manual Plt Count 105 L (120-450) K/mm3 MPV 10.8 (7.0-11.0) fl Gran % 75.7 H (50.0-68.0) % Lymph % (Auto) 12.5 L (22.0-35.0) % Roosevelt % (Auto) 7.6 H (1.0-6.0) % Eos % (Auto) 4.0 (1.5-5.0) % Baso % (Auto) 0.2 (0.0-3.0) % Gran # 4.50 (1.4-6.5) Lymph # (Auto) 0.7 L (1.2-3.4) Roosevelt # (Auto) 0.5 (0.1-0.6) Eos # (Auto) 0.2 (0.0-0.7) Baso # (Auto) 0.01 (0.0-2.0) K/mm3 Sodium 140 (132-148) mmol/L Potassium 4.1 (3.6-5.0) mmol/L Chloride 104 (98-107) mmol/L Carbon Dioxide 26 (21-33) mmol/L Anion Gap 15 (10-20) BUN 53 H (7-21) mg/dL Creatinine 9.6 H* D (0.7-1.2) mg/dl Est GFR ( Amer) 5 Est GFR (Non-Af Amer) 4 Random Glucose 89 (70-110) mg/dL Calcium 8.1 L (8.4-10.5) mg/dL Phosphorus 4.8 H (2.5-4.5) mg/dL Magnesium 1.8 (1.7-2.2) mg/dL Total Bilirubin 0.6 (0.2-1.3) mg/dL Direct Bilirubin 0.6 H (0.0-0.4) mg/dL AST 136 H D (14-36) U/L ALT 58 H (7-56) U/L Alkaline Phosphatase 133 H D (38-126) U/L Total Protein 7.3 (5.8-8.3) g/dL Albumin 3.1 (3.0-4.8) g/dL Globulin 4.2 gm/dL Albumin/Globulin Ratio 0.7 L (1.1-1.8) PTH Intact Whole Molec 233 H (14-64) pg/mL Crossmatch 01/13/18 Range/Units 07:12 WBC (4.5-11.0) 10^3/ul RBC (3.5-6.1) 10^6/uL Hgb (12.0-16.0) g/dL Hct (36.0-48.0) % MCV (80.0-105.0) fl MCH (25.0-35.0) pg MCHC (31.0-37.0) g/dl RDW (11.5-14.5) % Plt Count (120.0-450.0) 10^3/uL Manual Plt Count (120-450) K/mm3 MPV (7.0-11.0) fl Gran % (50.0-68.0) % Lymph % (Auto) (22.0-35.0) % Roosevelt % (Auto) (1.0-6.0) % Eos % (Auto) (1.5-5.0) % Baso % (Auto) (0.0-3.0) % Gran # (1.4-6.5) Lymph # (Auto) (1.2-3.4) Roosevelt # (Auto) (0.1-0.6) Eos # (Auto) (0.0-0.7) Baso # (Auto) (0.0-2.0) K/mm3 Sodium (132-148) mmol/L Potassium (3.6-5.0) mmol/L Chloride (98-107) mmol/L Carbon Dioxide (21-33) mmol/L Anion Gap (10-20) BUN (7-21) mg/dL Creatinine (0.7-1.2) mg/dl Est GFR ( Amer) Est GFR (Non-Af Amer) Random Glucose (70-110) mg/dL Calcium (8.4-10.5) mg/dL Phosphorus (2.5-4.5) mg/dL Magnesium (1.7-2.2) mg/dL Total Bilirubin (0.2-1.3) mg/dL Direct Bilirubin (0.0-0.4) mg/dL AST (14-36) U/L ALT (7-56) U/L Alkaline Phosphatase (38-126) U/L Total Protein (5.8-8.3) g/dL Albumin (3.0-4.8) g/dL Globulin gm/dL Albumin/Globulin Ratio (1.1-1.8) PTH Intact Whole Molec (14-64) pg/mL Crossmatch See Detail Laboratory Results - last 24 hr 01/13/18 01/14/18 01/16/18 07:12 07:15 05:50 WBC 5.9 RBC 2.64 L Hgb 8.2 L Hct 26.6 L MCV 100.8 MCH 31.1 MCHC 30.8 L RDW 15.3 H Plt Count 80 L Manual Plt Count 105 L MPV 10.8 Gran % 75.7 H Lymph % (Auto) 12.5 L Roosevelt % (Auto) 7.6 H Eos % (Auto) 4.0 Baso % (Auto) 0.2 Gran # 4.50 Lymph # (Auto) 0.7 L Roosevelt # (Auto) 0.5 Eos # (Auto) 0.2 Baso # (Auto) 0.01 Sodium Potassium Chloride Carbon Dioxide Anion Gap BUN Creatinine Est GFR ( Amer) Est GFR (Non-Af Amer) Random Glucose Calcium Phosphorus Magnesium Total Bilirubin Direct Bilirubin AST ALT Alkaline Phosphatase Total Protein Albumin Globulin Albumin/Globulin Ratio PTH Intact Whole Molec 233 H Crossmatch See Detail 01/16/18 05:50 WBC RBC Hgb Hct MCV MCH MCHC RDW Plt Count Manual Plt Count MPV Gran % Lymph % (Auto) Roosevelt % (Auto) Eos % (Auto) Baso % (Auto) Gran # Lymph # (Auto) Roosevelt # (Auto) Eos # (Auto) Baso # (Auto) Sodium 140 Potassium 4.1 Chloride 104 Carbon Dioxide 26 Anion Gap 15 BUN 53 H Creatinine 9.6 H* D Est GFR ( Amer) 5 Est GFR (Non-Af Amer) 4 Random Glucose 89 Calcium 8.1 L Phosphorus 4.8 H Magnesium 1.8 Total Bilirubin 0.6 Direct Bilirubin 0.6 H AST 136 H D ALT 58 H Alkaline Phosphatase 133 H D Total Protein 7.3 Albumin 3.1 Globulin 4.2 Albumin/Globulin Ratio 0.7 L PTH Intact Whole Molec Crossmatch Review of Systems - Review of Systems All systems: reviewed and no additional remarkable complaints except Review of Systems: as per HPI Critical Care Progress Note - Nutrition Nutrition: Nutrition Category Date Time Status Renal Diet [DIET] Diets 01/13/18 Dinner Ordered Assessment/Plan - Assessment and Plan (Free Text) Assessment: 57F w/HFrEF -EF 40-45% ; ESRD HD MWF s/p HD on 01/13 post cardiac cath on 01/13 admitted to ICU 2/2 DUB ROOM ENGINEER due to Hypotension. Neuro: -maintain normothermia -AAO x3, moving extremities spontaneously past midline Cardio: -Hypotension s/p HD; Febrile during DUB ROOM ENGINEER; Consider septic shock vs cardiogenic shock vs hypovolemic shock -Non-responsive to 750ml boluses -Patient has had historical pressures ranging in systolic 90s -Midodrine 10 TID -Off of pressors; maintaining well w/o support -Cardiac cath on 01/13 50% stenosis of the mid LAD, EF of 40-45% and patent stents in the LAD and circumflex arteries with recommendations of continued medical therapy and medication compliance -Cardiology Following, Dr. Tran Lungs: -SaO2 >90% -supplementary O2 PRN -xopenex q6 -CXR shows no acute disease Renal: -HD today -Maintain euvolemia -Avoid nephrotoxic agents -replace electrolytes as needed -CTAP - atrophic kidneys -HD MWF -Nephro on consult, Dr. Shukla Heme: Hb 8.5 stable Transfuse if patient goes below 7 Endo: -maintain euglycemia -synthroid 25mcg ID: -No white count -Febrile yesterday PM; Afebrile overnight -Repeat Lactate 1.9; stable -IV tylenol prn -Vanc/Zosyn DCd -Merem started -Blood culture negative at 24H -ProCal 11 - elevated -CRP elevated -CTAP Unremarkable -continue home HIV therapy. Ritonavir, abacavir, mepron, darunavir -ID on consult, Dr. Pedro GI: -renal diet -hepatitis B panel: HBs indeterminate; remainder is negative -abdominal xray pending -reglan 5mg IVP q6 -GI prophylaxis with protonix 40mg IVP q12 -GI on consult, Dr. Snider Dispo: Patient no longer requiring ICU Intervention/ Pressor support at this time; Can transfer. Patient was discussed, seen, and examined at bedside w/ attending physician Dr. Juli Britt DO PGY1 - Internal Medicine Certified Medical Asst - Pager [phone] - Date & Time Date: 01/16/18 Time: 11:46 <Ligia Bustos - Last Filed: 01/16/18 15:59> CCU Objective - Vital Signs / Intake & Output Vital Signs (Last 4 hours): Vital Signs Temp Pulse Resp BP 01/16/18 14:50 83 17 01/16/18 14:49 75 44 H 01/16/18 14:48 86 61 H 01/16/18 14:47 77 26 H 01/16/18 14:46 84 53 H 01/16/18 14:45 72 01/16/18 14:44 70 01/16/18 14:43 75 75 H 01/16/18 14:42 76 77 H 01/16/18 14:41 76 69 H 01/16/18 14:40 72 76 H 01/16/18 14:39 76 75 H 01/16/18 14:38 73 01/16/18 14:37 79 41 H 01/16/18 14:36 76 78 H 01/16/18 14:35 74 01/16/18 14:34 74 01/16/18 14:33 74 62 H 01/16/18 14:32 75 01/16/18 14:31 81 41 H 01/16/18 14:30 145/85 01/16/18 14:29 73 01/16/18 14:28 70 01/16/18 14:27 76 01/16/18 14:26 73 67 H 01/16/18 14:25 77 01/16/18 14:24 76 01/16/18 14:23 76 01/16/18 14:22 77 01/16/18 14:21 76 01/16/18 14:20 79 01/16/18 14:19 79 01/16/18 14:18 76 70 H 01/16/18 14:17 69 01/16/18 14:16 72 01/16/18 14:15 76 77 H 01/16/18 14:14 70 01/16/18 14:13 78 01/16/18 14:12 79 01/16/18 14:11 70 01/16/18 14:10 77 01/16/18 14:09 76 01/16/18 14:08 77 01/16/18 14:07 76 01/16/18 14:06 74 01/16/18 14:05 73 01/16/18 14:04 72 01/16/18 14:03 74 01/16/18 14:02 72 01/16/18 14:01 74 01/16/18 14:00 80 01/16/18 12:00 98.7 F Intake and Output (Last 8hrs): Intake & Output 01/16/18 01/16/18 01/16/18 06:59 14:59 22:59 Intake Total 560 Balance 560 Intake: Oral 560 Other: # Bowel Movements 0 - Medications Active Medications: Active Medications Generic Name Dose Route Start Last Admin Trade Name Freq PRN Reason Stop Dose Admin Abacavir Sulfate 300 mg 01/13/18 11:30 01/15/18 18:13 Ziagen PO Not Given BID [facility] Protocol Acetaminophen 650 mg 01/13/18 11:12 01/13/18 15:32 Tylenol 325mg Tab PO 650 mg Q6 PRN Administration TEMP>=99.5F Acetaminophen 650 mg 01/13/18 11:12 Tylenol 650 Mg Supp RC Q6H PRN TEMP>=99.5F Acetaminophen 650 mg 01/13/18 11:17 Tylenol 325mg Tab PO Q4H PRN Fever >100.4 F Acetylcysteine 4 ml 01/13/18 14:00 01/16/18 13:06 Acetylcysteine 20% IH Not Given [id number] DOUGLAS Aspirin 81 mg 01/13/18 11:15 01/16/18 09:35 Ecotrin PO 81 mg DAILY DOUGLAS Administration Atorvastatin Calcium 40 mg 01/13/18 17:00 01/15/18 18:12 Lipitor PO 40 mg DIN DOUGLAS Administration Atovaquone 750 mg 01/13/18 11:30 01/16/18 10:00 Mepron PO Not Given BID [facility] Protocol Calcium Acetate 1,334 mg 01/13/18 14:00 01/16/18 15:12 Phoslo PO Not Given TID DOUGLAS Diphenhydramine HCl 25 mg 01/15/18 08:07 01/16/18 05:48 Benadryl IVP 25 mg Q8H PRN Administration Allergy symptoms Docusate Sodium 100 mg 01/13/18 14:00 01/16/18 14:38 Colace PO Not Given TID DOUGLAS Ergocalciferol 1 cap 01/13/18 11:30 Drisdol 50,000 Intl Units Cap PO Q7D DOU[facility]AS Folic Acid 1 mg 01/14/18 10:00 01/16/18 09:35 Folic Acid PO 1 mg DAILY DOUGLAS Administration Meropenem 500 mg/ Sodium 50 mls @ 100 mls/hr 01/14/18 10:26 01/15/18 18:12 Chloride IVPB 01/21/18 06:01 100 mls/hr 1800 [facility] Administration Protocol Lamivudine 150 mg 01/16/18 15:12 Epivir PO MWF@2200 [facility] Protocol Levalbuterol HCl 0.63 mg 01/13/18 14:00 01/16/18 13:06 Xopenex IH Not Given [id number] DOUGLAS Levothyroxine Sodium 25 mcg 01/14/18 06:00 01/16/18 05:47 Synthroid PO 25 mcg 0600 DOUGLAS Administration Lidocaine 1 ea 01/14/18 21:30 01/16/18 10:00 Lidoderm TD Not Given DAILY DOUGLAS Metoclopramide HCl 5 mg 01/13/18 20:15 01/16/18 14:45 Reglan IVP 5 mg Q6H DOUGLAS Administration Midodrine 10 mg 01/14/18 19:32 01/16/18 14:45 Proamatine PO 10 mg TID DOUGLAS Administration Multivitamins 1 tab 01/13/18 11:30 01/16/18 10:05 Thera Tab PO 1 tab DAILY DOUGLAS Administration Darunavir Ethanolate 800 mg 01/14/18 06:32 01/15/18 21:38 [Prezista] 800 Mg ( PO Not Given Home Med) [facility] Offve-9-Hjqa Ethyl Esters 1 gm 01/13/18 11:30 01/16/18 10:05 Lovaza PO 1 gm BID DOUGLAS Administration Ondansetron HCl 4 mg 01/13/18 11:12 01/16/18 02:57 Zofran Inj IVP 4 mg Q4H PRN Administration Nausea/Vomiting Pantoprazole Sodium 40 mg 01/13/18 11:15 01/16/18 10:05 Protonix Inj IVP 40 mg Q12 DOUGLAS Administration Polyethylene Glycol 17 gm 01/13/18 18:00 01/16/18 10:00 Miralax PO Not Given BID DOUGLAS Ritonavir 100 mg 01/14/18 22:00 01/15/18 21:33 Norvir PO 100 mg HS DOUGLAS Administration Protocol Tramadol HCl 50 mg 01/14/18 20:59 Ultram PO Q8H PRN Pain, moderate (4-7) - Patient Studies Lab Studies: Microbiology Studies 01/14/18 00:55 MRSA Culture (Admit) - Final Naris MRSA NOT DETECTED 01/13/18 19:40 Blood Culture - Preliminary Blood NO GROWTH AFTER 48 HOURS Lab Studies 01/16/18 01/16/18 01/13/18 Range/Units 05:50 05:50 07:12 WBC 5.9 (4.5-11.0) 10^3/ul RBC 2.64 L (3.5-6.1) 10^6/uL Hgb 8.2 L (12.0-16.0) g/dL Hct 26.6 L (36.0-48.0) % MCV 100.8 (80.0-105.0) fl MCH 31.1 (25.0-35.0) pg MCHC 30.8 L (31.0-37.0) g/dl RDW 15.3 H (11.5-14.5) % Plt Count 80 L (120.0-450.0) 10^3/uL Manual Plt Count 105 L (120-450) K/mm3 MPV 10.8 (7.0-11.0) fl Gran % 75.7 H (50.0-68.0) % Lymph % (Auto) 12.5 L (22.0-35.0) % Roosevelt % (Auto) 7.6 H (1.0-6.0) % Eos % (Auto) 4.0 (1.5-5.0) % Baso % (Auto) 0.2 (0.0-3.0) % Gran # 4.50 (1.4-6.5) Lymph # (Auto) 0.7 L (1.2-3.4) Roosevelt # (Auto) 0.5 (0.1-0.6) Eos # (Auto) 0.2 (0.0-0.7) Baso # (Auto) 0.01 (0.0-2.0) K/mm3 Sodium 140 (132-148) mmol/L Potassium 4.1 (3.6-5.0) mmol/L Chloride 104 (98-107) mmol/L Carbon Dioxide 26 (21-33) mmol/L Anion Gap 15 (10-20) BUN 53 H (7-21) mg/dL Creatinine 9.6 H* D (0.7-1.2) mg/dl Est GFR ( Amer) 5 Est GFR (Non-Af Amer) 4 Random Glucose 89 (70-110) mg/dL Calcium 8.1 L (8.4-10.5) mg/dL Phosphorus 4.8 H (2.5-4.5) mg/dL Magnesium 1.8 (1.7-2.2) mg/dL Total Bilirubin 0.6 (0.2-1.3) mg/dL Direct Bilirubin 0.6 H (0.0-0.4) mg/dL AST 136 H D (14-36) U/L ALT 58 H (7-56) U/L Alkaline Phosphatase 133 H D (38-126) U/L Total Protein 7.3 (5.8-8.3) g/dL Albumin 3.1 (3.0-4.8) g/dL Globulin 4.2 gm/dL Albumin/Globulin Ratio 0.7 L (1.1-1.8) Crossmatch See Detail Laboratory Results - last 24 hr 01/13/18 01/16/18 01/16/18 07:12 05:50 05:50 WBC 5.9 RBC 2.64 L Hgb 8.2 L Hct 26.6 L MCV 100.8 MCH 31.1 MCHC 30.8 L RDW 15.3 H Plt Count 80 L Manual Plt Count 105 L MPV 10.8 Gran % 75.7 H Lymph % (Auto) 12.5 L Roosevelt % (Auto) 7.6 H Eos % (Auto) 4.0 Baso % (Auto) 0.2 Gran # 4.50 Lymph # (Auto) 0.7 L Roosevelt # (Auto) 0.5 Eos # (Auto) 0.2 Baso # (Auto) 0.01 Sodium 140 Potassium 4.1 Chloride 104 Carbon Dioxide 26 Anion Gap 15 BUN 53 H Creatinine 9.6 H* D Est GFR ( Amer) 5 Est GFR (Non-Af Amer) 4 Random Glucose 89 Calcium 8.1 L Phosphorus 4.8 H Magnesium 1.8 Total Bilirubin 0.6 Direct Bilirubin 0.6 H AST 136 H D ALT 58 H Alkaline Phosphatase 133 H D Total Protein 7.3 Albumin 3.1 Globulin 4.2 Albumin/Globulin Ratio 0.7 L Crossmatch See Detail Critical Care Progress Note - Nutrition Nutrition: Nutrition Category Date Time Status Renal Diet [DIET] Diets 01/13/18 Dinner Ordered Addendum Addendum: 01/16/18 15:59 ICU Attending Addendum: Patient seen and examined. Case reviewed on round with housestaff. Agree with resident note above with the following additions/exceptions: 57F with CHF EF 40%, ESRD on HD on Fri/Fri/Fri, CAD with multiple stent placement in past, medication non-compliance, chronic anemia, secondary hyperparathyroidism, hypothyroidism and HIV ( CD4 of 79) admitted to ICU after hypotension during dialysis and fevers. She is now off pressors. BP stable and normotensive. No signs of shock No fevers over 24 hours, cultures neg thus far cont midodrine Record shows she is on metoprolol at home, would resume given her CAD and CHF HD as per renal ID on board as well Otherwise clinically stable for transfer out of ICU Rest of care as noted above. Ligia Bustos MD [facility]
--- NOTE | 2018-01-16 11:34 | PN ---
DATE: 01/16/2018 LOCATION: The patient is in the Critical Care Unit room 128, bed 2. SUBJECTIVE: She was admitted with chest pain, unstable angina, had immediate cardiac catheterization and treatment. The patient also has past history of chronic renal failure, dialysis patient. The patient also has history of HIV infection. The patient has history of gastritis. The patient also has history of hypothyroidism, chronic lung disease. Today, the patient is lying in bed, comfortable. She had no complaints excepting some localized pain in the left side of the periumbilical area of the abdomen. She has no complaint about any chest pain. She had no shortness of breath. PHYSICAL EXAMINATION: VITAL SIGNS: Pulse is 88, and her blood pressure is improved. The patient is also on Levophed post cardiac cath, blood pressure seemed to be controlled at this time. The patient's O2 sat is 99 to 100%. The patient's blood pressure was 86/33. LUNGS: Trachea central. Breath sounds are vesicular. No adventitious sounds. HEART: Normal sinus rhythm. S1, S2 present. No murmurs. ABDOMEN: Soft. Liver, spleen not palpable. SNATH HANDLE ASSEMBLER: The patient is conscious, rationale, oriented, no focal deficits. LABORATORY DATA: The patient's hemoglobin is 8.5. The patient's chemistry, the BUN and creatinine are elevated. The patient has chronic renal failure and the patient is on dialysis 3 times a week. The patient also has history of systemic inflammatory response syndrome associated with the acute unstable angina the patient was admitted with. MEDICATIONS: The list of medications, the patient is on acetylcysteine, which is Mucomyst. The patient is on respiratory treatment with DuoNeb. The patient is on Colace. The patient is on antiviral treatment for HIV. The patient is also on aspirin 81 mg daily. The patient is on folic acid 1 mg daily. The patient gets Lipitor 40 mg daily. The patient is on meropenem 500 mg every 8 hours and the patient is on MiraLax for constipation. She is on a heart-healthy diet renal. PLAN: The patient has been followed up by mine technician and wedding day coordinator while the patient is here in the Critical Care Unit. The patient will be transferred to telemetry; her condition seemed to be more stable and improved. She is on Proamatine to maintain a steady blood pressure. She is on Proamatine 10 mg three times a day at this time. Jung Newton MD [facility]
--- NOTE | 2018-01-16 13:00 | CP.PCM.PN ---
Subjective - Date & Time of Evaluation Date of Evaluation: 01/16/18 Time of Evaluation: 10:20 - Subjective Subjective: Comfortable on a chair, no fevers overnight, feeling better, no diarrhea, no dysphagia, no abdominal pain, still with some cough. Objective - Vital Signs/Intake and Output Vital Signs (last 24 hours): Temp Pulse Resp BP Pulse Ox 98.1 F 88 29 H 128/64 100 01/15/18 18:00 01/16/18 06:32 01/16/18 06:32 01/16/18 06:30 01/16/18 01:00 Intake and Output: 01/15/18 01/16/18 18:59 06:59 Intake Total 765 560 Balance 765 560 - Medications Medications: Current Medications Abacavir Sulfate (Ziagen) 300 mg PO BID [facility] PRN Reason: Protocol Last Admin: 01/15/18 18:13 Dose: Not Given Acetaminophen (Tylenol 325mg Tab) 650 mg PO Q6 PRN PRN Reason: TEMP>=99.5F Last Admin: 01/13/18 15:32 Dose: 650 mg Acetaminophen (Tylenol 650 Mg Supp) 650 mg RC Q6H PRN PRN Reason: TEMP>=99.5F Acetaminophen (Tylenol 325mg Tab) 650 mg PO Q4H PRN PRN Reason: Fever >100.4 F Acetylcysteine (Acetylcysteine 20%) 4 ml IH [id number] [facility] Last Admin: 01/16/18 01:26 Dose: 4 ml Aspirin (Ecotrin) 81 mg PO DAILY [facility] Last Admin: 01/15/18 09:21 Dose: 81 mg Atorvastatin Calcium (Lipitor) 40 mg PO DIN [facility] Last Admin: 01/15/18 18:12 Dose: 40 mg Atovaquone (Mepron) 750 mg PO BID [facility] PRN Reason: Protocol Last Admin: 01/15/18 18:12 Dose: Not Given Calcium Acetate (Phoslo) 1,334 mg PO TID [facility] Last Admin: 01/15/18 21:34 Dose: Not Given Diphenhydramine HCl (Benadryl) 25 mg IVP Q8H PRN PRN Reason: Allergy symptoms Last Admin: 01/16/18 05:48 Dose: 25 mg Docusate Sodium (Colace) 100 mg PO TID [facility] Last Admin: 01/15/18 18:26 Dose: 100 mg Ergocalciferol (Drisdol 50,000 Intl Units Cap) 1 cap PO Q7D [facility] Folic Acid (Folic Acid) 1 mg PO DAILY [facility] Last Admin: 01/15/18 09:20 Dose: 1 mg Sodium Chloride (Sodium Chloride 0.9%) 1,000 mls @ 10 mls/hr IV .Q24H [facility] Last Admin: 01/15/18 15:07 Dose: 10 mls/hr Meropenem 500 mg/ Sodium (Chloride) 50 mls @ 100 mls/hr IVPB 1800 [facility] PRN Reason: Protocol Stop: 01/21/18 06:01 Last Admin: 01/15/18 18:12 Dose: 100 mls/hr Lamivudine (Epivir) 150 mg PO MWF [facility] PRN Reason: Protocol Levalbuterol HCl (Xopenex) 0.63 mg IH O2OUYXA [facility] Last Admin: 01/16/18 01:24 Dose: 0.63 mg Levothyroxine Sodium (Synthroid) 25 mcg PO 0600 [facility] Last Admin: 01/16/18 05:47 Dose: 25 mcg Lidocaine (Lidoderm) 1 ea TD DAILY [facility] Last Admin: 01/15/18 12:03 Dose: Not Given Metoclopramide HCl (Reglan) 5 mg IVP Q6H [facility] Last Admin: 01/16/18 02:15 Dose: 5 mg Midodrine (Proamatine) 10 mg PO TID [facility] Last Admin: 01/15/18 21:34 Dose: 10 mg Multivitamins (Thera Tab) 1 tab PO DAILY [facility] Last Admin: 01/15/18 09:20 Dose: 1 tab Darunavir Ethanolate [Prezista] 800 Mg ( Home Med) 800 mg PO HS [facility] Last Admin: 01/15/18 21:38 Dose: Not Given Yrmgb-6-Aodd Ethyl Esters (Lovaza) 1 gm PO BID [facility] Last Admin: 01/15/18 18:12 Dose: Not Given Ondansetron HCl (Zofran Inj) 4 mg IVP Q4H PRN PRN Reason: Nausea/Vomiting Last Admin: 01/16/18 02:57 Dose: 4 mg Pantoprazole Sodium (Protonix Inj) 40 mg IVP Q12 [facility] Last Admin: 01/15/18 21:35 Dose: 40 mg Polyethylene Glycol (Miralax) 17 gm PO BID [facility] Last Admin: 01/15/18 18:12 Dose: Not Given Ritonavir (Norvir) 100 mg PO HS [facility] PRN Reason: Protocol Last Admin: 01/15/18 21:33 Dose: 100 mg Tramadol HCl (Ultram) 50 mg PO Q8H PRN PRN Reason: Pain, moderate (4-7) - Labs Labs: 01/16/18 05:50 01/15/18 06:00 PT 12.0 SECONDS (9.4-12.5) 01/13/18 07:12 INR 1.04 01/13/18 07:12 APTT 34.7 Seconds (25.1-36.5) 01/13/18 07:12 - Constitutional Appears: Chronically Ill - Head Exam Head Exam: NORMAL INSPECTION - ENT Exam ENT Exam: Mucous Membranes Moist - Neck Exam Neck Exam: absent: Meningismus - Respiratory Exam Respiratory Exam: Decreased Breath Sounds - Cardiovascular Exam Cardiovascular Exam: +S1, +S2 - GI/Abdominal Exam GI & Abdominal Exam: Soft. absent: Tenderness Assessment and Plan - Assessment and Plan (Free Text) Plan: Assessment systemic inflammatory response syndrome, with hypotension, R/O severe sepsis but source is unclear, clinically improving HIV and AIDS, non-compliant with ART, last CD4 count 79 in September 2017 history of severe sepsis due to HCAP R/O pneumocystis pneumonia history of acute pancreatitis related to hypertriglyceridemia S/P oral candidiasis history of Cony esophagitis with oral candidiasis HIV and AIDS, non-compliant with ART, last CD4 count 66 in august 2017 history of Cdiff associated diarrhea history of left upper lobe HCAP erosive gastritis HTN chronic renal failure on hemodialysis coronary artery disease history of UTI history of esophageal ulcer S/P cholecystecomty Plan gave a dose of IV Vancomycin and continue Merrem day 3; reviewed CT C/A/P which does not show specific source of infection, cultures have been negative - if patient continues to be afebrile, may d/c antibiotics in the next 24 hours will also continue ART and PJP prophylaxis will continue to monitor clinically
--- NOTE | 2018-01-16 16:16 | PN ---
DATE: 01/16/2018 SUBJECTIVE: The patient is seen lying in bed in the ICU. She is awake, she is alert, she is comfortable. She denies any pain. She denies any shortness of breath. She reports her cough is better. PHYSICAL EXAMINATION: GENERAL: Middle-aged lady lying in bed. VITAL SIGNS: Blood pressure 118/59, heart rate 74, temperature 98.1. HEENT: Normocephalic, atraumatic, positive pallor. NECK: Supple, no JVD. LUNGS: Bilateral equal air entry, bilateral equal expansion, no rales. CARDIAC: S1 and S2, regular rate and rhythm, no murmur, no rub. ABDOMEN: Distended, soft, nontender, bowel sounds present. EXTREMITIES: No lower extremity edema. INTAKE AND OUTPUT: Not charted. LABORATORY DATA: WBC 5.9, hemoglobin 8.2, hematocrit 27, platelets 80. Sodium 140, potassium 4.1, chloride 104, CO2 of 26, BUN 53, creatinine 9.6, glucose 8.1, calcium 4.8. AST 136, ALT 58. Cultures, no growth. MEDICATIONS: List reviewed. ASSESSMENT AND PLAN: 1. Systemic inflammatory response syndrome, with high-grade fever, hypotension. 2. Human immunodeficiency virus/acquired immunodeficiency syndrome. 3. History of pancreatitis. 4. History of esophageal candidiasis. 5. Hypertension. 6. End-stage renal disease. 8. Coronary artery disease. PLAN: 1. Dialysis today. 2. Continue empiric antibiotics. 3. Monitor blood pressure. 4. Follow a renal diet. Meryl Shukla MD
[2018-01-16] MEDS ORDERED: Darbepoetin Alfa 40 mcg/ml Inj SC ONE (17:16)
[2018-01-16] MEDS: Meropenem 500 MG in Sodium Chloride 0.9% 50 ML IVPB SCH (22:52)
[2018-01-16] MEDS: DARUNAVIR ETHANOLATE 800 MG PO SCH (23:51)
[2018-01-17] MEDS: DiphenhydrAMINE 50 mg/ml Inj IVP PRN ×3 (00:10→18:20)
[2018-01-17] MEDS: Acetylcysteine 20% Inhal Soln (4ml) IH SCH ×4 (02:05→19:39)
[2018-01-17] MEDS: Levalbuterol 0.63 MG/3 ML Inhal Soln UD IH SCH ×4 (02:06→19:39)
[2018-01-17 08:16] LABS: BASO # 0.05 K/mm3 (0.0-2.0); BASO % 1.1 % (0.0-3.0); EOS # 0.2 (0.0-0.7); EOS % 4.6 % (1.5-5.0); GRAN # 2.12 (1.4-6.5); GRAN % 46.3 % (50.0-68.0); HEMOGLOBIN 8.1 g/dL (12.0-16.0); LYMPH # 1.4 (1.2-3.4); LYMPH % 31.2 % (22.0-35.0); MEAN CELL VOLUME 100.8 fl (80.0-105.0); MEAN CORPUSCULAR HEMOGLOBIN 30.9 pg (25.0-35.0); MEAN CORPUSCULAR HGB CONC 30.7 g/dl (31.0-37.0); MEAN PLATELET VOLUME 9.6 fl (7.0-11.0); MONO # 0.8 (0.1-0.6); MONO % 16.8 % (1.0-6.0); RBC 2.62 10^6/uL (3.5-6.1); RED CELL DISTRIBUTION WIDTH 15.1 % (11.5-14.5); WHITE BLOOD COUNT 4.6 10^3/ul (4.5-11.0)
[2018-01-17 08:44] LABS: ALB/GLOB RATIO 0.8 (1.1-1.8); ALBUMIN 3.4 g/dL (3.0-4.8); BILIRUBIN,DIRECT 0.6 mg/dL (0.0-0.4); CALCIUM 8.4 mg/dL (8.4-10.5)
--- NOTE | 2018-01-17 09:25 | PN ---
DATE: 01/17/2018 LOCATION: The patient is in [facility] in [place], room 374, bed 2. SUBJECTIVE: The patient was transferred of the Critical Care Unit, status post cardiac angiogram. The patient had hypotension. The patient has history of HIV infection, renal failure. The patient is on dialysis 3 times a week. The patient has also history of diabetes. She is seen this morning. She is seemed to be comfortable. The substance abuse technician has seen the patient today and he feels that the patient's clinical condition improved that after dialysis yesterday, 6 L of fluid was removed from the patient. PHYSICAL EXAMINATION VITAL SIGNS: This morning, the pulse is 79, blood pressure 140/80, the patient's temperature 97. LUNGS: Clear. HEART: Normal sinus rhythm. S1 and S2 present. ABDOMEN: Soft. Liver and spleen not palpable. No tenderness. LOFT WORKER HEAD: No focal deficits. LABORATORY DATA: The patient's blood work yesterday, the hemoglobin is 8.2. The patient does run low hemoglobin due to chronic renal failure. The patient gets treatment for that. The patient's chemistry: The creatinine is 9.6, BUN is 53, blood sugar is within normal range. The patient's liver enzymes slightly abnormal. ASSESSMENT AND PLAN: At this time, we will ambulate the patient and follow up for 24 hours. The patient is on ProAmatine for low blood pressure, but we will have to adjust the dose of the ProAmatine from 10 mg three times a day to 10 mg once a day and we will watch the blood pressure today. If the patient is stable tomorrow, the patient will be able to go home and follow up with dialysis. Jung Newton MD MTDHarsh
[2018-01-17] MEDS: Lidocaine 5% Patch TD SCH (11:06)
[2018-01-17] MEDS: Omega-3-Acid Ethyl Esters 1 GM Cap PO SCH ×2 (11:07→17:47)
[2018-01-17] MEDS: Atovaquone 750 mg/5 ml Susp UD PO SCH ×2 (11:07→17:47)
[2018-01-17] MEDS: POLYETHYLENE GLYCOL 3350 17 GM/Dose PACKET PO SCH ×2 (11:08→17:49)
[2018-01-17] MEDS: Multivitamin Therapeutic Tab PO SCH (11:14)
--- NOTE | 2018-01-17 13:23 | PN ---
DATE: 01/17/2018 SUBJECTIVE: The patient is seen earlier this morning, comfortable in room 374, bed 2. PHYSICAL EXAMINATION: VITAL SIGNS: Temperature is 97, blood pressure is 112/70, respiratory rate of 16. HEENT: Examination of HEENT is unremarkable. NECK: Supple. LUNGS: Have decreased breath sounds. HEART: Normal S1 and S2. ABDOMEN: Soft, nontender. LABORATORY DATA: Laboratory examination reveals a white count of 4.6, hemoglobin of 8, platelets of 81. Chemistries reveals a BUN of 22, creatinine of 5.5. Procalcitonin is 11. Blood cultures are negative. Nares cultures are negative. Review of orders reveals the patient to be on meropenem and the patient is on HIV medications. ASSESSMENT AND PLAN: A 57-year-old female, who was seen earlier, doing well with systemic inflammatory response syndrome with hypotension, end-stage acquired immune deficiency syndrome, history of sepsis due to healthcare-associated pneumonia. Currently, on vancomycin and meropenem day #3. The patient had a CAT scan of the chest and abdomen. No pneumonia in the chest and the abdomen is unremarkable. The patient's home medications include abacavir. However, the patient is not supposed to be on abacavir. The patient is supposed to be on darunavir, lamivudine, ritonavir. The patient is currently on abacavir. We will check on an HLA-B. We will recommend stopping abacavir. We will order a HLA-B 5701 typing given the patient's cardiac disease and we will follow with you. We will discontinue the abacavir. Review of the patient's blood pressure is 150/80. She did have periods of hypotension down 77. We will be concerned about hypersensitivity reaction. We will discontinue the meropenem also. Thus far, all cultures are negative. Meliton Rodriguez MD
[2018-01-17] MEDS: DARUNAVIR ETHANOLATE 800 MG PO SCH (22:04)
[2018-01-18] MEDS: Acetylcysteine 20% Inhal Soln (4ml) IH SCH ×2 (01:12→07:39)
[2018-01-18] MEDS: Levalbuterol 0.63 MG/3 ML Inhal Soln UD IH SCH ×2 (01:12→07:40)
[2018-01-18] MEDS: Levothyroxine 25 MCG TAB PO SCH (06:28)
[2018-01-18 09:22] LABS: BASO # 0.01 K/mm3 (0.0-2.0); BASO % 0.2 % (0.0-3.0); EOS # 0.2 (0.0-0.7); EOS % 5.2 % (1.5-5.0); GRAN # 1.7 (1.4-6.5); GRAN % 39.8 % (50.0-68.0); LYMPH # 1.6 (1.2-3.4); LYMPH % 37.9 % (22.0-35.0); MEAN CELL VOLUME 101.1 fl (80.0-105.0); MEAN CORPUSCULAR HEMOGLOBIN 30.4 pg (25.0-35.0); MEAN CORPUSCULAR HGB CONC 30.1 g/dl (31.0-37.0); MEAN PLATELET VOLUME 11.2 fl (7.0-11.0); MONO # 0.7 (0.1-0.6); MONO % 16.9 % (1.0-6.0); RBC 2.63 10^6/uL (3.5-6.1); RED CELL DISTRIBUTION WIDTH 14.8 % (11.5-14.5); WHITE BLOOD COUNT 4.3 10^3/ul (4.5-11.0)
[2018-01-18 09:35] LABS: ALB/GLOB RATIO 0.8 (1.1-1.8); ALBUMIN 3.4 g/dL (3.0-4.8); BILIRUBIN,DIRECT 0.6 mg/dL (0.0-0.4); CALCIUM 8.8 mg/dL (8.4-10.5)
[2018-01-18] MEDS: Lidocaine 5% Patch TD SCH (10:11)
[2018-01-18] MEDS: Omega-3-Acid Ethyl Esters 1 GM Cap PO SCH (10:12)
[2018-01-18] MEDS: Atovaquone 750 mg/5 ml Susp UD PO SCH (10:12)
[2018-01-18] MEDS: POLYETHYLENE GLYCOL 3350 17 GM/Dose PACKET PO SCH (10:12)
[2018-01-18] MEDS: Multivitamin Therapeutic Tab PO SCH (10:14)
[2018-01-18 10:35] VITALS: BP 133/87; PULSE 84; RESP 20; TEMP 98; O2SAT 98
--- NOTE | 2018-01-18 13:07 | PN ---
DATE: 01/18/2018 SUBJECTIVE: The patient was seen in the Emergency Room with unstable angina. The patient had cardiac cath and angioplasty. The patient has past history of hypertension, chronic renal failure. The patient is on dialysis three times a week. The patient also has history of HIV infection. The patient has history of chronic lung disease and chronic pain. The patient is seen this morning. She is comfortable. Her blood pressure is stable. She was on ProAmatine; we reduced the dose yesterday. Her blood pressure is still stable. We will give her ProAmatine 10 mg once a day on discharge. She will continue all her medications at home. PHYSICAL EXAMINATION: VITAL SIGNS: Pulse is 75, blood pressure is 140/80. LUNGS: Clear. HEART: Normal sinus rhythm. ABDOMEN: soft. Liver and spleen not palpable. CENTRAL NERVOUS SYSTEM: No focal deficit. The patient is comfortable, pleasant, happy to leave the hospital at this time. She is going to private dialysis center for dialysis tomorrow. We will give her prescription for ProAmatine, which she does not have. We will give her dose of 10 mg once a day. The patient's list of medications, the patient is on Mucomyst with respiratory treatment. The patient is on Colace, Benadryl, vitamin D, antibiotic treatment. The patient is on folic acid 1 mg daily. The patient is on Lipitor 40 mg daily, Mepron antiprotozoal prophylactic treatment 750 mg b.i.d. and pantoprazole 40 mg daily, PhosLo 1334 mg p.o. t.i.d. that is to reduce the phosphorus in the blood due to chronic renal failure. The patient's ProAmatine will be at 10 mg once a day when she goes home. Her diet will be renal, heart-healthy diet. Jung Newton MD MTDHarsh
--- NOTE | 2018-01-18 17:23 | PN ---
DATE: 01/18/2018 SUBJECTIVE: The patient is in bed, in no acute distress, nontoxic. PHYSICAL EXAMINATION: VITAL SIGNS: Temperature is 98, blood pressure is 130/60, respiratory rate of 18, heart rate of 82. HEENT: Examination of HEENT is unremarkable. NECK: Supple. LUNGS: Have decreased breath sounds. HEART: Normal S1 and S2. ABDOMEN: Soft, nontender. LABORATORY DATA: Laboratory examination is reviewed and blood work from this morning is pending. ASSESSMENT AND PLAN: This is a 57-year-old female who was seen earlier today with systemic inflammatory response syndrome and end-stage acquired immune deficiency syndrome and sepsis, healthcare-associated pneumonia. We are waiting for human immunodeficiency virus PCR and HLA and antigen and we will manage her human immunodeficiency virus medications as outpatient. She is encouraged to follow up, although in the past, she has consistently been nonconsistent. We will follow with her. Meliton Rodriguez MD
--- NOTE | 2018-01-19 08:51 | PN ---
DATE: 01/17/2018 SUBJECTIVE: The patient is currently seen on 3R. She is entirely comfortable. No abdominal pain. No fevers. She anticipates having her antibiotics discontinued today as her cultures are negative with possible discharge home either later today or tomorrow. MEDICATIONS: Medication list reviewed. The patient is on Prezista, acetylcysteine inhalation therapy, Benadryl p.r.n., Colace, vitamin D, Ecotrin, Epivir, folic acid, Lidoderm, Lipitor, Lovaza, Mepron, meropenem, MiraLax, Norvir, PhosLo, ProAmatine, Protonix, Reglan, Synthroid, MultiVites, Tylenol p.r.n., Ultram p.r.n., Xopenex, Ziagen and Zofran. OBJECTIVE: INTAKE/OUTPUT: Intake 120, output 1700 mL with dialysis. VITAL SIGNS: Blood pressure 158/83, temperature 97.3, pulse of 93 with a respiratory rate of 20, pulse ox is 100%. HEENT: Shows her to be normocephalic, atraumatic. Conjunctivae are pale. Sclerae are nonicteric. NECK: Supple. No neck vein distention. CHEST: Clear to auscultation and percussion. No audible rales, rhonchi or wheezing. CARDIOVASCULAR: Shows a regular rate and rhythm without murmurs, rubs or gallops. ABDOMEN: Soft. Bowel sounds normal. No rebound, guarding or masses. EXTREMITIES: Show a positive thrill and bruit over her left upper extremity AV fistula. She also has a right chest wall PermCath. No lower extremity cyanosis, clubbing or edema. NEURO: Shows her to be alert and oriented with no gross deficits. LABORATORY DATA AND IMAGING: CBC: White blood cell count 5.9, hemoglobin 8.2 that is predialysis from yesterday. Platelet count is 80,000. Chemistries showed normal electrolytes. BUN 53, creatinine of 9.6 predialysis yesterday. Calcium 8.1, phosphorus 4.8. Mild elevation of her liver enzymes. Albumin level is low at 3.1. Microbiology: All cultures are negative at 72 hours. ASSESSMENT: 1. End-stage renal disease. The patient will continue Friday, Friday, Friday dialysis upon discharge. She will return to [facility]. 2. Status post systemic inflammatory response syndrome with fevers. The patient was empirically started on the antibiotic therapy. All cultures are negative. As per the guidance of Infectious Disease, perhaps discontinue antibiotics today. 3. History of human immunodeficiency virus, HAART therapy, history of human immunodeficiency virus nephropathy. 4. History of pancreatitis, esophageal Cony. These appeared to be nonactive problems at present. 5. History of hypertension. Blood pressure control is acceptable. 6. History of atherosclerotic heart disease, status post percutaneous transluminal coronary angioplasty stent, ejection fraction 36% with mitral and tricuspid regurgitation. 7. History of anemia, in part secondary to chronic kidney disease, in part secondary to human immunodeficiency virus. The patient will continue receiving iron and Aranesp on dialysis. 8. History of secondary hyperparathyroidism. Last phosphorus level was 4.8 with a calcium level of 8.1. To restart binder therapy. The patient had been on PhosLo in the outpatient setting and she will continue this. PLAN: 1. Awaiting Infectious Disease followup for today. Perhaps discontinuation of antibiotic therapy with tentative discharge home. 2. The patient to be compliant taking her HAART therapy. 3. The patient to return for outpatient dialysis on Friday of next week and she will continue on her Friday, Friday, Friday schedule. 4. Continue all dietary restrictions. David Crump MD
== END 2018-01-18 11:42 | disposition home or self-care (01) | DRG 286 ==
LOC: CATH 06:29 → 2RSO 10:09 → ICU 20:00 → CATH 01-14 00:27 → ICU 01-14 00:27 → 3RSO 01-16 15:36
PROVIDERS: ADMIT Internal Medicine; ATTEND Internal Medicine
PROC: 4A023N7 Measurement of Cardiac Sampling and Pressure, Left Heart, Percutaneous Approach (ICD-10-PCS; principal; 2018-01-13)
PROC: B211YZZ Fluoroscopy of Multiple Coronary Arteries using Other Contrast (ICD-10-PCS; 2018-01-13)
PROC: B215YZZ Fluoroscopy of Left Heart using Other Contrast (ICD-10-PCS; 2018-01-13)
PROC: 3E0F7GC Introduction of Other Therapeutic Substance into Respiratory Tract, Via Natural or Artificial Opening (ICD-10-PCS; 2018-01-13)
PROC: 5A1D70Z Performance of Urinary Filtration, Intermittent, Less than 6 Hours Per Day (ICD-10-PCS; 2018-01-14)
PROC: 5A1D70Z Performance of Urinary Filtration, Intermittent, Less than 6 Hours Per Day (ICD-10-PCS; 2018-01-16)
DX: I25.110 Atherosclerotic heart disease of native coronary artery with unstable angina pectoris (principal); N18.6 End stage renal disease; B20 Human immunodeficiency virus [HIV] disease; N25.81 Secondary hyperparathyroidism of renal origin; I50.22 Chronic systolic (congestive) heart failure; I13.2 Hypertensive heart and chronic kidney disease with heart failure and with stage 5 chronic kidney disease, or end stage renal disease; F11.20 Opioid dependence, uncomplicated; R65.10 Systemic inflammatory response syndrome (SIRS) of non-infectious origin without acute organ dysfunction; D61.818 Other pancytopenia; I42.0 Dilated cardiomyopathy; I25.5 Ischemic cardiomyopathy; F12.90 Cannabis use, unspecified, uncomplicated; E11.22 Type 2 diabetes mellitus with diabetic chronic kidney disease; E03.9 Hypothyroidism, unspecified; I95.3 Hypotension of hemodialysis; I27.20 Pulmonary hypertension, unspecified; E55.9 Vitamin D deficiency, unspecified; D63.1 Anemia in chronic kidney disease; G89.29 Other chronic pain; I08.1 Rheumatic disorders of both mitral and tricuspid valves; K59.00 Constipation, unspecified; E11.43 Type 2 diabetes mellitus with diabetic autonomic (poly)neuropathy; K31.84 Gastroparesis; E78.00 Pure hypercholesterolemia, unspecified; K21.9 Gastro-esophageal reflux disease without esophagitis; Z95.5 Presence of coronary angioplasty implant and graft; Z87.440 Personal history of urinary (tract) infections; Z99.2 Dependence on renal dialysis; Z91.14 Patient's other noncompliance with medication regimen; Z91.19 Patient's noncompliance with other medical treatment and regimen; Z91.11 Patient's noncompliance with dietary regimen; Z76.5 Malingerer [conscious simulation]; Z87.891 Personal history of nicotine dependence; Z87.01 Personal history of pneumonia (recurrent)

== ENCOUNTER 2018-03-30 11:30 | Emergency (ER) | payer MEDICARE, OTHER ==
[2018-03-30 11:38] VITALS: BMI 21.4
[2018-03-30 11:43] VITALS: BP 136/82; PULSE 104; RESP 20; TEMP 98.1; O2SAT 98
--- NOTE | 2018-03-30 12:03 | ED PDOC ---
Arrival/HPI - General Chief Complaint: Cough, Cold, Congestion Time Seen by Provider: 03/30/18 11:44 Historian: Patient - History of Present Illness Narrative History of Present Illness (Text): 03/30/18 12:02 A 57 year old female, whose past medical history includes hypertension, chronic systolic heart failure, ESRD on HD (T, Th, Sat), HIV, PA, CAD s/p stent placement, medication non-compliance, and chronic anemia, presents to the emergency department complaining of chest pain and abdominal cramping for 3 days. Patient reports chest pain feels as though chest is throbbing. Notes also experiencing shortness of breath, headache, radiating left arm pain, nausea, and vomited 3 times this morning prior to go to dialysis. Patient's last dialysis session was this morning, where patient was told her hemoglobin is suppose to be at 10.1 and is currently at 7.8. She mentions having a fever as well, with measure of 100 as last checked 3 days ago. Patient denies any diarrhea, or any other complaints at this time. Also, patient mentions she had a stress test performed years ago. PMD: Dr. Gomez Garment Steamer: Dr. Chavez Nutritionalist: Dr. Tran Past Medical History - Provider Review Nursing Documentation Reviewed: Yes - Past History Past History: No Previous - Infectious Disease Hx of Infectious Diseases: None - Tetanus Immunization Tetanus Immunization: Unknown - Reproductive Menopause: No - Cardiac Hx Pacemaker: No - Pulmonary Hx Chronic Obstructive Pulmonary Disease (COPD): No - Neurological Hx Paralysis: No - HEENT Hx HEENT Disorder: No - Renal Hx Renal Failure: Yes (ESRD/ on Hemo 3x/wk) - Endocrine/Metabolic Hx Hypothyroidism: Yes - Hematological/Oncological Hx Blood Transfusions: Yes Hx Blood Transfusion Reaction: No - Integumentary Hx Dermatological Disorder: Yes (generalized body itch on and off) - Musculoskeletal/Rheumatological Hx Musculoskeletal Disorders: Yes (CERVICAL DISC) - Gastrointestinal Hx Gastrointestinal Disorders: Yes Hx Crohn's Disease: No Hx Gall Bladder Disease: Yes Hx Gastroesophageal Reflux: Yes Hx Pancreatitis: Yes HX Swallowing Problems: No - Genitourinary/Gynecological Hx Genitourinary Disorders: Yes Hx Sexually Transmitted Diseases: Yes (HIV/AIDS) Hx Urinary Tract Infection: Yes - Psychiatric Hx Emotional Abuse: No Hx Physical Abuse: No Hx Substance Use: Yes (Quit 25 years ago) - Surgical History Hx Appendectomy: No (denied) Hx Cholecystectomy: Yes Hx Coronary Stent: Yes (4) Hx Hysterectomy: No Hx Kidney Transplant: No Hx Liver Transplant: No Hx Mastectomy: No Hx Open Heart Surgery: No Hx Orthopedic Surgery: No Hx Splenectomy: No Hx Valve Replacement: No Other/Comment: cath for peritoneal dialysis inserted & removed x 2 - Anesthesia Hx Anesthesia Reactions: No Hx Malignant Hyperthermia: No - Suicidal Assessment Feels Threatened In Home Enviroment: No Family/Social History - Physician Review Nursing Documentation Reviewed: Yes Family/Social History: No Known Family HX Smoking Status: Former Smoker Hx Alcohol Use: Yes Hx Substance Use: Yes (Quit 25 years ago) Substance used: oxycodone and marijuana Hx Substance Use Treatment: No Allergies/Home Meds Allergies/Adverse Reactions: Allergies MAVIS Inhibitors Allergy (Severe, Verified 01/07/18 12:20) SWELLING Home Medications: Home Meds Medication Instructions Recorded Confirmed Darunavir Ethanolate [Prezista] 150 mg PO HS 01/09/18 01/13/18 Polyethylene Glycol 3350 [Miralax] 17 gm PO DAILY 01/09/18 01/13/18 Review of Systems - Physician Review All systems were reviewed & negative as marked: Yes - Review of Systems Constitutional: Fevers Respiratory: SOB Cardiovascular: Chest Pain Gastrointestinal: Abdominal Pain (abdominal cramping), Vomiting (3 episodes of vomiting prior to going to dialysis). absent: Diarrhea Neurological: Headache Physical Exam - Physical Exam Narrative Physical Exam (Text): Gen: VS reviewed, alert, well developed, well nourished, nontoxic, mild distress. ENT: normal pharynx. Eye: EOMI, PERRL. Neck: no JVD, supple, no adenopathy. CV: tachycardic, regular rhythm, no rubs, no murmur, no gallops, S1, S2, pulses equal and strong. Catheter in right chest wall. Pulm: no distress, clear to auscultation, no wheeze, no rhonchi, breath sounds equal, no rales. Abd: soft, [id number] lower quadrant and epigastric tenderness, with guarding, no rebound, no rigidity, normal bowel sounds. Ext: no edema. Skin: good color, no rash, no cyanosis. Psych: responds appropriately to questions, normal affect. Neuro: oriented x 3, CN2-12 intact grossly, motor intact, sensation intact. Vital Signs Reviewed: Yes Vital Signs Temp Pulse Resp BP Pulse Ox 03/30/18 11:38 98.1 F 104 H 20 136/82 98 Temperature: Afebrile Blood Pressure: Normal Pulse: Regular Respiratory Rate: Normal Appearance: Positive for: Well-Appearing, Non-Toxic, Comfortable Pain Distress: None Mental Status: Positive for: Alert and Oriented X 3 Medical Decision Making ED Course and Treatment: 03/30/18 12:03 Impression: 57 year old female with chest pain and abdominal cramping. Plan: -- EKG -- Chest X-ray -- Labs -- Zofran -- Reassess and disposition Prior Visits: Notes and results from previous visits were reviewed. Patient was last seen in the emergency department on 12/02/2017 for complaining of pain when swallowing. Patient was discharged home diagnosed with esophagitis and gastritis. Progress Notes: 03/30/18 13:16 i went to bedside to discuss medications with patient. patient states she is now not focused on her nausea which is why she refused the zofran. i explained to the patient that my intention was to provide analgesia based on safety profile and considering the patient's past addiction history. patient reports " i dont do tylenol. i need morphine for my heart pain". i explained to the patient that she can stay in the hospital and analgesics can be escalated by her primary care doctor. patient states she did not want to stay and that she will sign out ama. 13:[address] gomez, knows the patient very well, state that the patient goes to different hospital facilities looking for pain medications. recommends against routine use of narcotic pain medications but is willing to see the paitent for close follow up if the patient signs out against medical advise. 03/30/18 13:25 patient refused to sign ama. patient was informed to follow up with her pcp dr. gomez 03/30/18 13:26 AMA: TREATMENT REFUSED The patient refuses further medical evaluation and testing and wishes to leave the Emergency Department against my medical advice. Patient was told that this testing is necessary and a full explanation of the reasons why was given, and understood by patient. The risks of leaving were explained and include worsening of condition, and permanent disability and from undiagnosed or untreated conditions. The patient accepts these risks, and is in my judgment is competent and capable of understanding the clinical situation and my explanation of the risks of leaving. Patient was given the opportunity to ask questions and change mind. The patient was instructed regarding the best care for the present symptoms, and to follow up with Dr. Gomez as soon as possible, or return to the Emergency Department at any time for continuing care. Patient left the ED prior to the opportunity to explain diagnostic workup and planning disposition. 03/30/18 14:05 - RAD Interpretation Narrative RAD Interpretations (Text): 03/30/2018 12:27 Chest X-ray IMPRESSION: No active disease. Dictator: Kimo Garcia MD - EKG Interpretation EKG Interpretation (Text): 03/30/18 11:48 sinus tach at 103 bpm, nml qrs, nml axis, no acute sttw abn Interpreted by ED Physician: Yes - Scribe Statement The provider has reviewed the documentation as recorded by the Scribe Bonnie Ladd Provider Scribe Attestation: All medical record entries made by the Scribe were at my direction and personally dictated by me. I have reviewed the chart and agree that the record accurately reflects my personal performance of the history, physical exam, medical decision making, and the department course for this patient. I have also personally directed, reviewed, and agree with the discharge instructions and disposition. Disposition/Present on Arrival - Present on Arrival Any Indicators Present on Arrival: No History of DVT/PE: No History of Uncontrolled Diabetes: No Urinary Catheter: No History of Decub. Ulcer: No History Surgical Site Infection Following: None - Disposition Have Diagnosis and Disposition been Completed?: Yes Diagnosis: Chest pain Disposition: AGAINST MEDICAL ADVICE Disposition Time: 13:23 Condition: STABLE Discharge Instructions (ExitCare): Chest Pain (ED) Forms: [place] ([employer])
--- NOTE | 2018-03-30 12:31 | RAD ---
Date of service: 03/30/2018 HISTORY: chest pain COMPARISON: 01/13/2018 FINDINGS: LUNGS: No active pulmonary disease. PLEURA: No significant pleural effusion identified, no pneumothorax apparent. CARDIOVASCULAR: No aortic atherosclerotic calcification present. Mild cardiomegaly no pulmonary vascular congestion. OSSEOUS STRUCTURES: No significant abnormalities. VISUALIZED UPPER ABDOMEN: Normal. OTHER FINDINGS: Right-sided dialysis catheter IMPRESSION: No active disease.
[2018-03-30 13:09] LABS: BASO # 0.02 K/mm3 (0.0-2.0); BASO % 0.5 % (0.0-3.0); EOS % 0.5 % (1.5-5.0); GRAN # 2.22 (1.4-6.5); HEMOGLOBIN 8.1 g/dL (12.0-16.0); LYMPH # 1.3 (1.2-3.4); LYMPH % 31.4 % (22.0-35.0); MEAN CELL VOLUME 101.2 fl (80.0-105.0); MEAN CORPUSCULAR HEMOGLOBIN 31.3 pg (25.0-35.0); MEAN CORPUSCULAR HGB CONC 30.9 g/dl (31.0-37.0); MEAN PLATELET VOLUME 11.3 fl (7.0-11.0); MONO # 0.5 (0.1-0.6); MONO % 12.6 % (1.0-6.0); RBC 2.59 10^6/uL (3.5-6.1); RED CELL DISTRIBUTION WIDTH 16.5 % (11.5-14.5)
[2018-03-30 13:18] LABS: INR 1.05; PARTIAL THROMBOPLASTIN TIME 33.2 Seconds (25.1-36.5); PROTHROMBIN TIME 12.1 SECONDS (9.4-12.5)
[2018-03-30 13:20] LABS: ALB/GLOB RATIO 0.8 (1.1-1.8); ALBUMIN 3.8 g/dL (3.0-4.8); CALCIUM 8.7 mg/dL (8.4-10.5)
[2018-03-30 13:31] LABS: TROPONIN I 0.05 ng/mL
--- NOTE | 2018-03-30 19:22 | CARD ---
APPROVED REPORT Date of service: 03/30/2018 EKG Measurement Heart [id number] <Conclusion> Sinus tachycardia Nonspecific T wave abnormality Abnormal ECG
== END 2018-03-30 13:23 | disposition left against medical advice (07) ==
LOC: ED 11:30
DX: R07.9 Chest pain, unspecified (principal); I13.2 Hypertensive heart and chronic kidney disease with heart failure and with stage 5 chronic kidney disease, or end stage renal disease; I50.9 Heart failure, unspecified; N18.6 End stage renal disease; Z99.2 Dependence on renal dialysis; D64.9 Anemia, unspecified; Z87.891 Personal history of nicotine dependence; Z95.5 Presence of coronary angioplasty implant and graft; Z91.14 Patient's other noncompliance with medication regimen